=== PATIENT | female | born 1960 | race Caucasian/White ===

== ENCOUNTER 2020-04-03 09:39 | Outpatient (REF) | payer MEDICARE, OTHER, SELFPAY | END 2020-04-03 09:40 | disposition home or self-care (01) | LOC: HO.HMGCLDS 09:39 | PROVIDERS: PCP Internal Medicine; Visit Provider Internal Medicine Hypertension Specialist | DX: Z13.89 Encounter for screening for other disorder (principal) ==

== ENCOUNTER 2020-04-04 07:35 | Outpatient (REF) | payer MEDICARE, OTHER, SELFPAY ==
[2020-04-04 08:28] LABS: Basophils Percent Auto 0.6 % (0-2); Eosinophils Absolute Auto 0.4 X10*3/uL (0.0-0.4); Eosinophils Percent Auto 6.7 % (0-4); Hematocrit 40.7 % (37-47); Hemoglobin 13.1 g/dl (12.0-16.0); Imm Gran Abs Auto 0.01 X10*3/uL (0.00-0.03); Imm Gran Pct Auto 0.2 % (0.0-0.4); Lymphocytes Absolute Auto 1.8 X10*3/uL (1.2-4.9); Lymphocytes Percent Auto 33.7 % (20-40); MANUAL DIFF FLAG NO; Mean Corpuscular HGB Conc 32.2 g/dl (31.0-35.0); Mean Corpuscular Hemoglobin 30.8 pg (27.0-33.0); Mean Corpuscular Volume 95.5 fL (80-98); Mean Platelet Volume 9.2 fL (9.4-12.3); Monocytes Absolute Auto 0.4 X10*3/uL (0.1-1.2); Monocytes Percent Auto 7.6 % (2-11); Neutrophils Absolute Auto 2.7 X10*3/uL (2.0-8.3); Neutrophils Percent Auto 51.2 % (45-73); Platelet Count 324 X10*3/uL (160-400); Red Blood Count 4.26 X10*6/uL (4.20-5.50); Red Cell Distribution Width 13.4 % (11.0-16.0); White Blood Count 5.2 X10*3/uL (4.8-10.8)
[2020-04-04 08:59] LABS: Phosphorus 3.6 mg/dL (2.7-4.5)
[2020-04-04 09:00] LABS: Albumin Level 4.3 g/dL (3.5-5.0); Anion Gap 12 (12-20); Blood Urea Nitrogen 14 mg/dL (9-16); Calcium 8.8 mg/dL (8.4-10.2); Carbon Dioxide 27 mmol/L (22-29); Chloride 105 mmol/L (96-108); Estimated Glomerular Filt Rate > 60; Potassium 4.2 mmol/l (3.3-5.1); Sodium 140 mmol/L (135-145)
[2020-04-08 11:27] LABS: Metanephrine, Free 76 pg/mL (<=57); Normetanephrines, Free 150 pg/mL (<=148); Total Metanephrine, Free 226 pg/mL (<=205)
[2020-04-10 12:47] LABS: Renin 0.14 ng/mL/h (0.25-5.82)
[2020-04-12 14:17] LABS: Catecholamine Frac, Total 698 pg/mL
== END 2020-04-04 07:36 | disposition home or self-care (01) ==
LOC: HO.LAB 07:35
PROVIDERS: PCP Internal Medicine; Visit Provider Internal Medicine Hypertension Specialist
DX: I10 Essential (primary) hypertension (principal)
CPT/HCPCS: 36415; 80051; 82040; 82088; 82310; 82384; 82533; 82565; 83735; 83835; 84100; 84244; 84520; 85025

== ENCOUNTER 2020-07-26 14:20 | Outpatient (REF) | payer MEDICARE, OTHER, SELFPAY ==
[2020-07-26 17:01] LABS: Free T4 (Free Thyroxine) 0.94 ng/dL (0.71-1.85); Thyroid Stimulating Hormone 0.55 uIU/mL (0.32-4.0)
[2020-07-27 06:12] LABS: Triiodothyronine T3 Free 2.8 pg/mL (2.3-4.2)
== END 2020-07-26 14:21 | disposition home or self-care (01) ==
LOC: HO.HMGCLDS 14:20
PROVIDERS: PCP Internal Medicine; Visit Provider Internal Medicine
DX: E01.0 Iodine-deficiency related diffuse (endemic) goiter (principal)
CPT/HCPCS: 36415; 84439; 84443; 84481

== ENCOUNTER 2020-09-05 08:28 | Outpatient (REF) | payer MEDICARE, OTHER, SELFPAY ==
--- NOTE | ~2020-09-05 | US_ITS ---
EXAMINATION: US THYROID CLINICAL INFORMATION: Thyromegaly. COMPARISON: Ultrasound soft tissue head/neck thyroid dated 04/06/2018 and 01/27/2007. TECHNIQUE: Linear transducer grayscale and color Doppler examination with attention to the region of the thyroid. FINDINGS: SIZE: Measurements of the thyroid lobes and nodules are given in sagittal, anteroposterior and transverse dimensions respectively. Right Thyroid Lobe: 6.4 x 1.9 x 3.3 cm, volume 20.3 mL. Previously 5.5 x 2.4 x 3.1 cm, volume 21.3 mL. Parenchyma: The gland echotexture is heterogeneous. Thyroid vascularity is normal. Left Thyroid Lobe: 6.3 x 2.7 x 2.6 cm, volume 23.1 mL. Previously 5.8 x 2.5 x 2.4 cm, volume 18.4 mL. Parenchyma: The gland echotexture is heterogeneous. Thyroid vascularity is normal. Isthmus: 0.4 cm in maximum AP dimension. Previously 0.3 cm. Estimated total number of nodules greater than or equal to 1 cm: 3. Watch [employer] nodules are described as follows: 1. Location: Right superior medial. Size: 3.7 x 1.8 x 2.7 cm, volume 9.06 mL. Previously: 3.3 x 1.5 x 2.6 cm, volume 6.7 mL. Nodule characteristics: Composition: Solid/almost completely solid (2). Echogenicity: Isoechoic (1). Shape: Not taller than wide (0). Margins: Smooth (0). Echogenic Foci: Macrocalcifications (1). Punctate echogenic foci (3). ACR TI-RADS total points: 7 ACR TI-RADS category: 5 Significant change in size (>/= 20% in 2 dimensions and minimal increase of 2 mm or 50% or greater increase in volume): Yes Change in features: No Change in ACR TI-RADS risk category: No 2. Location: Right inferior. Size: 0.9 x 0.8 x 0.9 cm, volume 0.33 mL. Previously: Not seen on the prior study. This may correspond to calcified portion of the previously described 2 x 1.5 x 1.6 cm inferior nodule for example image 20-22 on April 2018 exam. Nodule characteristics: Composition: Cannot be determined (2). Echogenicity: Cannot be determined (1). Shape: Not taller than wide (0). Margins: Smooth (0). Echogenic Foci: Peripheral calcifications (2). ACR TI-RADS total points: 5 ACR TI-RADS category: 4 3. Location: Right inferior. Size: 1.0 x 0.9 x 1.0 cm, volume 0.46 mL. Previously: Not seen on the prior study. Nodule characteristics: Composition: Mixed cystic and solid (1). Echogenicity: Hypoechoic (2). Shape: Not taller than wide (0). Margins: Smooth (0). Echogenic Foci: Macrocalcifications (1). ACR TI-RADS total points: 4 ACR TI-RADS category: 4 4. Location: Left mid. Size: 2.8 x 2.1 x 2.3 cm, volume 6.81 mL. Previously: 3.0 x 2.2 x 2.0 cm, volume 6.9 mL. Nodule characteristics: Composition: Solid/almost completely solid (2). Echogenicity: Isoechoic (1). Shape: Not taller than wide (0). Margins: Smooth (0). Echogenic Foci: Punctate echogenic foci (3). ACR TI-RADS total points: 6 ACR TI-RADS category: 4 Significant change in size (>/= 20% in 2 dimensions and minimal increase of 2 mm or 50% or greater increase in volume): No Change in features: No Change in ACR TI-RADS risk category: No 5. Location: Left inferior. Size: 2.2 x 1.6 x 2.3 cm, volume 4.28 mL. Previously: Not seen on the prior study. Nodule characteristics: Composition: Solid/almost completely solid (2). Echogenicity: Hypoechoic (2). Shape: Not taller than wide (0). Margins: Smooth (0). Echogenic Foci: Punctate echogenic foci (3). ACR TI-RADS total points: 7 ACR TI-RADS category: 5 NODES: No lymphadenopathy is seen in the tissue surrounding the thyroid gland. US/US thyroid IMPRESSION: Enlarged heterogeneous thyroid gland with multiple bilateral nodules. Comparison with previous exam is difficult. Fine-needle aspiration of the largest nodule in the superior right lobe and inferior left lobe should be considered as well as continued ultrasound follow-up as described below. ACR TI-RADS RECOMMENDATION REFERENCE: Ultrasound-guided fine-needle aspiration, followup ultrasound, no further follow up. * TR1 (0 point) and TR 2 (2 points): No FNA or follow up * TR3 (3 points): FNA if more than or equal to 2.5 cm in maximum dimension, followup ultrasound in 1, 3 and 5 years if 1.5 to 2.4 cm in maximum dimension. * TR4 (4-6 points): FNA if more than or equal to 1.5 cm in maximum dimension, followup ultrasound in 1, 2, 3 and 5 years if 1 to 1.4 cm in maximum dimension. * TR5 (more than or equal to 7 points): FNA if more than or equal to 1 cm in maximum dimension, followup ultrasound every year for 5 years if 0.5 to 0.9 cm in maximum dimension. * TR3, TR4 or TR5 nodules that are below the size threshold for follow up receive no follow up.
== END 2020-09-05 08:29 | disposition home or self-care (01) ==
LOC: HO.HMGCX 08:28
PROVIDERS: PCP Internal Medicine; Visit Provider Internal Medicine
DX: E01.0 Iodine-deficiency related diffuse (endemic) goiter (principal)
CPT/HCPCS: 76536

== ENCOUNTER 2020-09-08 01:40 | Emergency (ER) | payer MEDICARE, OTHER, SELFPAY ==
[2020-09-08 02:01] VITALS: BP 169/54; PULSE 82; RESP 17; TEMP 37; O2SAT 98; BMI 24.7
--- NOTE | 2020-09-08 02:29 | ECG_ITS ---
Test Reason : VOMITING Blood Pressure : / mmHG Vent. Rate : 068 BPM Atrial Rate : 068 BPM P-R Int : 190 ms QRS Dur : 082 ms QT Int : 412 ms P-R-T Axes : 047 050 056 degrees QTc Int : 438 ms Sinus rhythm with frequent Premature ventricular complexes Otherwise normal ECG When compared with ECG of 15-JUN-2018 16:26, No significant change was found Referred By: Nan Aldrich Electronically Signed By:PARAMJIT WHEELER
[2020-09-08] MEDS: ondansetron HCL 4 MG/2 ML VIAL IVPUSH ×2 (02:30→04:59)
[2020-09-08 02:50] LABS: Basophils Percent Auto 0.1 % (0-2); Eosinophils Absolute Auto 0.1 X10*3/uL (0.0-0.4); Eosinophils Percent Auto 1.1 % (0-4); Hematocrit 42.2 % (37-47); Hemoglobin 14.1 g/dl (12.0-16.0); Imm Gran Abs Auto 0.02 X10*3/uL (0.00-0.03); Imm Gran Pct Auto 0.2 % (0.0-0.4); Lymphocytes Absolute Auto 1.2 X10*3/uL (1.2-4.9); Lymphocytes Percent Auto 14.6 % (20-40); MANUAL DIFF FLAG NO; Mean Corpuscular HGB Conc 33.4 g/dl (31.0-35.0); Mean Corpuscular Hemoglobin 31.4 pg (27.0-33.0); Mean Platelet Volume 9.6 fL (9.4-12.3); Monocytes Absolute Auto 0.6 X10*3/uL (0.1-1.2); Monocytes Percent Auto 6.7 % (2-11); Neutrophils Absolute Auto 6.5 X10*3/uL (2.0-8.3); Neutrophils Percent Auto 77.3 % (45-73); Platelet Count 346 X10*3/uL (160-400); Red Blood Count 4.49 X10*6/uL (4.20-5.50); Red Cell Distribution Width 13.1 % (11.0-16.0); White Blood Count 8.4 X10*3/uL (4.8-10.8)
[2020-09-08 03:13] LABS: Lipase 14 U/L (8-78)
[2020-09-08 03:18] LABS: Alanine Aminotransferase 15 U/L (0-31); Albumin Level 4.5 g/dL (3.5-5.0); Alkaline Phosphatase 72 U/L (39-117); Anion Gap 14 (12-20); Aspartate Amino Transferase 24 U/L (5-31); Blood Urea Nitrogen 13 mg/dL (9-16); Calcium 9.8 mg/dL (8.4-10.2); Carbon Dioxide 30 mmol/L (22-29); Chloride 101 mmol/L (96-108); Creatinine Clr Calc Pharmacy 73.5; Estimated Glomerular Filt Rate > 60; Glucose Random 96 mg/dL (60-115); Potassium 3.7 mmol/L (3.3-5.1); Sodium 141 mmol/L (135-145); Total Protein 7.5 g/dL (6.5-8.0)
--- NOTE | 2020-09-08 03:22 | ED.NAVMDI ---
HPI - Nausea/Vomiting/Diarrhea General Chief complaint: Nausea/Vomiting/Diarrhea Stated complaint: Vomiting Time Seen by Provider: 09/08/20 02:28 Source: patient Mode of arrival: ambulatory History of Present Illness HPI Narrative: 60-year-old female who presents after having had a tooth pulled earlier in the day and then was provided Percocet for pain at home and after taking his medication began developing nausea and vomiting. She states that the nausea and vomiting then caused her site tooth extraction to begin bleeding. She is concerned because she has a history cardiac problems and is currently on Eliquis. Related Data Previous Rx's Medication Instructions Recorded ondansetron HCl [Zofran] 4 mg PO Q8H PRN #7 tab 09/08/20 Allergies Allergy/AdvReac Type Severity Reaction Status Date / Time penicillin G [Penicillin G] Allergy Mild RASH Verified 09/08/20 02:43 acetaminophen Allergy Unknown Abdominal Verified 09/08/20 02:43 [Tylenol-Codeine #3] Pain penicillin V Allergy Unknown Abdominal Verified 09/08/20 02:45 Pain codeine [Codeine] AdvReac Mild SEVERE Verified 09/08/20 02:43 ABDOMINAL PAIN Review of Systems Review of Systems: Pertinent positives and negatives as stated in HPI 10 point review of systems is otherwise negative. PMFSH Past Medical History Source: nursing notes reviewed Medical History Atrial fibrillation Cardiac microvascular disease Cardiomyopathy TIA (transient ischemic attack) Social History Social History Alcohol intake: never Smoking Status: Never smoker Use of substances other than those prescribed or required for medical reasons: No Advance Directives: No Advance Directives Information Provided: No Physical Exam Vital Signs: Vital Signs: Last Vital Signs Temp 98.6 F 09/08/20 04:00 Pulse 15 L 09/08/20 04:00 Resp 17 09/08/20 04:00 BP 160/52 H 09/08/20 04:00 Pulse Ox 100 09/08/20 04:00 Body Mass Index 24.7 VITAL SIGNS: Reviewed. GENERAL: Well developed, well nourished, in no acute distress. HEAD: Normocephalic/atraumatic EYES: PERRLA, EOMI OROPHARYNX: no oral lesions noted, posterior pharynx clear, trace bleeding noted at extraction site otherwise oral cavity is clear NECK: Supple, no adenopathy LUNGS: Normal breath sounds. No adventitious sounds or accessory muscle use. SpO2<98> CARDIOVASCULAR: Regular rate and rhythm without noted murmurs ABDOMEN: Soft, non-tender, non-distended with bowel sounds. NEUROLOGIC: Alert and oriented x 4. Strength and sensation to light touch were grossly intact x 4. Course Course Course Narrative: 60-year-old female with history and clinical presentation consistent with pain medication associated nausea. Patient was provided with an antiemetic and on re-evaluation will undergo an oral challenge. Review of all investigations is negative for any additional acute findings. Review of all investigations for acute findings and on re-evaluation and after patient received antiemetics, alcohol to use, and pain medication she states that her nausea has improved and that her pain level is beginning to decrease. Patient is otherwise stable for discharge home and will be provided with a prescription for Zofran as needed to use just prior to taking pain medication. MDM - Nausea/Vomiting/Diarrhea Lab Data Result diagrams: 09/08/20 02:41 09/08/20 02:41 Labs: Lab Results 09/08/20 09/08/20 09/08/20 Range/Units 02:41 02:41 02:41 WBC 8.4 (4.8-10.8) X10*3/uL RBC 4.49 (4.20-5.50) X10*6/uL Hgb 14.1 (12.0-16.0) g/dl Hct 42.2 (37-47) % MCV 94.0 (80-98) fL MCH 31.4 (27.0-33.0) pg MCHC 33.4 (31.0-35.0) g/dl RDW 13.1 (11.0-16.0) % Plt Count 346 (160-400) X10*3/uL MPV 9.6 (9.4-12.3) fL Immature Gran % (Auto) 0.2 (0.0-0.4) % Neut % (Auto) 77.3 H (45-73) % Lymph % (Auto) 14.6 L (20-40) % [place] % (Auto) 6.7 (2-11) % Eos % (Auto) 1.1 (0-4) % Baso % (Auto) 0.1 (0-2) % Lymph # (Auto) 1.2 (1.2-4.9) X10*3/uL [place] # (Auto) 0.6 (0.1-1.2) X10*3/uL Eos # (Auto) 0.1 (0.0-0.4) X10*3/uL Baso # (Auto) 0.0 (0.0-0.2) X10*3/uL Abs Immat Gran (auto) 0.02 (0.00-0.03) X10*3/uL Absolute Neuts (auto) 6.5 (2.0-8.3) X10*3/uL Absolute Nucleated RBC 0.000 (0.0-0.012) X10*3/uL Nucleated RBC % (auto) 0.0 (0.0-0.2) /100WBC Sodium 141 (135-145) mmol/L Potassium 3.7 (3.3-5.1) mmol/L Chloride 101 (96-108) mmol/L Carbon Dioxide 30 H (22-29) mmol/L Anion Gap 14 (12-20) BUN 13 (9-16) mg/dL Creatinine 0.73 (0.5-1.4) mg/dL Estim Creat Clear Calc 73.5 Estimated GFR > 60 Random Glucose 96 (60-115) mg/dL Calcium 9.8 D (8.4-10.2) mg/dL Total Bilirubin 1.0 (0.0-1.0) mg/dL AST 24 (5-31) U/L ALT 15 (0-31) U/L Alkaline Phosphatase 72 (39-117) U/L Total Protein 7.5 (6.5-8.0) g/dL Albumin 4.5 (3.5-5.0) g/dL Lipase 14 (8-78) U/L Urine Color Urine Appearance Urine pH (5.0-8.0) Ur Specific [place] (1.005-1.025) Urine Protein (NEG-TRACE) MG/DL Urine Glucose (UA) (NEG) MG/DL Urine Ketones (NEG) MG/DL Urine Blood (NEG) Urine Nitrite (NEG) Ur Leukocyte Esterase (NEG) 09/08/20 Range/Units 04:12 WBC (4.8-10.8) X10*3/uL RBC (4.20-5.50) X10*6/uL Hgb (12.0-16.0) g/dl Hct (37-47) % MCV (80-98) fL MCH (27.0-33.0) pg MCHC (31.0-35.0) g/dl RDW (11.0-16.0) % Plt Count (160-400) X10*3/uL MPV (9.4-12.3) fL Immature Gran % (Auto) (0.0-0.4) % Neut % (Auto) (45-73) % Lymph % (Auto) (20-40) % [place] % (Auto) (2-11) % Eos % (Auto) (0-4) % Baso % (Auto) (0-2) % Lymph # (Auto) (1.2-4.9) X10*3/uL [place] # (Auto) (0.1-1.2) X10*3/uL Eos # (Auto) (0.0-0.4) X10*3/uL Baso # (Auto) (0.0-0.2) X10*3/uL Abs Immat Gran (auto) (0.00-0.03) X10*3/uL Absolute Neuts (auto) (2.0-8.3) X10*3/uL Absolute Nucleated RBC (0.0-0.012) X10*3/uL Nucleated RBC % (auto) (0.0-0.2) /100WBC Sodium (135-145) mmol/L Potassium (3.3-5.1) mmol/L Chloride (96-108) mmol/L Carbon Dioxide (22-29) mmol/L Anion Gap (12-20) BUN (9-16) mg/dL Creatinine (0.5-1.4) mg/dL Estim Creat Clear Calc Estimated GFR Random Glucose (60-115) mg/dL Calcium (8.4-10.2) mg/dL Total Bilirubin (0.0-1.0) mg/dL AST (5-31) U/L ALT (0-31) U/L Alkaline Phosphatase (39-117) U/L Total Protein (6.5-8.0) g/dL Albumin (3.5-5.0) g/dL Lipase (8-78) U/L Urine Color YELLOW Urine Appearance CLEAR Urine pH 8.5 H (5.0-8.0) Ur Specific [place] 1.010 (1.005-1.025) Urine Protein NEG (NEG-TRACE) MG/DL Urine Glucose (UA) NEG (NEG) MG/DL Urine Ketones 5 (NEG) MG/DL Urine Blood NEG (NEG) Urine Nitrite NEG (NEG) Ur Leukocyte Esterase NEG (NEG) ECG Data Attestation: I personally reviewed and interpreted this ECG as follows: Prior ECG tracings: available for review (06/15/2018 no acute changes on comparison) Interpretation: Normal sinus rhythm with PVCs, HR-68, no evidence of acute ischemia, AK/QRS/QTC is within normal limits. Discharge Plan Discharge Clinical Impression: Nausea & vomiting Patient Disposition: Home, Self-Care Instructions: Acute Nausea and Vomiting (ED) Additional Instructions: 1. Resume all home medications as prescribed. 2. Please follow-up with your primary care provider in the next 2-3 days for re-evaluation and follow-up your dentist today. 3. Do not hesitate to return in the emergency department for any acute worsening of your symptoms. Prescriptions: New ondansetron HCl [Zofran] 4 mg tablet 4 mg PO Q8H PRN (Reason: nausea and vomiting) Qty: 7 RF: 0 Referrals: Physician,Unknown [Primary Care Provider] - 2 days
[2020-09-08 04:00] VITALS: BP 160/52; PULSE 15; RESP 17; TEMP 37; O2SAT 100
[2020-09-08 04:19] LABS: Glucose Urine UA NEG (NEG); Leukocyte Esterase Urine NEG (NEG); Nitrite Urine NEG (NEG); PH 8.5 (5.0-8.0); Urine Blood NEG (NEG); Urine Ketones 5 MG/DL (NEG); Urine Protein NEG (NEG-TRACE)
[2020-09-08 04:21] LABS: Appearance Urine CLEAR; Color Urine YELLOW
[2020-09-08] MEDS: traMADoL HCL 50 MG TABLET 25 MG PO (04:59)
== END 2020-09-08 06:18 | disposition home or self-care (01) ==
PROVIDERS: Emergency Provider Student in an Organized Health Care Education/Training Program
DX: R11.2 Nausea with vomiting, unspecified (principal); I48.91 Unspecified atrial fibrillation; Z86.73 Personal history of transient ischemic attack (TIA), and cerebral infarction without residual deficits; Z79.01 Long term (current) use of anticoagulants
CPT/HCPCS: 36415; 80053; 81003; 83690; 85025; 93005; 96374; 96376; 99284; 99285; J2405

== ENCOUNTER 2020-10-09 11:26 | Outpatient (REF) | payer MEDICARE, SELFPAY ==
[2020-10-09 12:08] LABS: Basophils Percent Auto 0.2 % (0-2); Eosinophils Absolute Auto 0.3 X10*3/uL (0.0-0.4); Eosinophils Percent Auto 4.6 % (0-4); Hematocrit 33.5 % (37-47); Hemoglobin 11.2 g/dl (12.0-16.0); Imm Gran Abs Auto 0.01 X10*3/uL (0.00-0.03); Imm Gran Pct Auto 0.2 % (0.0-0.4); Lymphocytes Absolute Auto 1.7 X10*3/uL (1.2-4.9); Lymphocytes Percent Auto 30.8 % (20-40); Mean Corpuscular HGB Conc 33.4 g/dl (31.0-35.0); Mean Corpuscular Hemoglobin 31.4 pg (27.0-33.0); Mean Corpuscular Volume 93.8 fL (80-98); Mean Platelet Volume 9.3 fL (9.4-12.3); Monocytes Absolute Auto 0.6 X10*3/uL (0.1-1.2); Monocytes Percent Auto 10.4 % (2-11); Neutrophils Absolute Auto 2.9 X10*3/uL (2.0-8.3); Neutrophils Percent Auto 53.8 % (45-73); Platelet Count 288 X10*3/uL (160-400); Red Blood Count 3.57 X10*6/uL (4.20-5.50); Red Cell Distribution Width 12.9 % (11.0-16.0); White Blood Count 5.5 X10*3/uL (4.8-10.8)
[2020-10-09 12:09] LABS: MANUAL DIFF FLAG NO
[2020-10-09 12:50] LABS: Erythrocyte Sedimentation Rate 16 MM/HR (0-20)
[2020-10-09 13:20] LABS: C Reactive Protein 0.17 mg/dL (< or = 0.50)
== END 2020-10-09 11:27 | disposition home or self-care (01) ==
LOC: HO.HMGCLDS 11:26
PROVIDERS: PCP Internal Medicine; Visit Provider Physician Assistant Surgical
DX: M25.561 Pain in right knee (principal); M25.461 Effusion, right knee
CPT/HCPCS: 36415; 85025; 85652; 86140

== ENCOUNTER 2021-03-22 07:10 | Outpatient (REF) | payer MEDICARE, SELFPAY ==
[2021-04-02 06:47] LABS: Lamotrigine Lamictal 9.5 mcg/mL (4.0-18.0)
== END 2021-03-22 07:11 | disposition home or self-care (01) ==
LOC: HO.HMGCLDS 07:10
PROVIDERS: PCP Internal Medicine; Visit Provider Clinical Nurse Specialist Psychiatric/Mental Health, Adult
DX: Z51.81 Encounter for therapeutic drug level monitoring (principal); Z79.899 Other long term (current) drug therapy
CPT/HCPCS: 36415; 80175

== ENCOUNTER 2021-05-07 09:24 | Outpatient (REF) | payer MEDICARE, OTHER, SELFPAY ==
[2021-05-07 17:59] LABS: Erythrocyte Sedimentation Rate 11 MM/HR (0-20)
[2021-05-07 18:18] LABS: Vitamin B12 411 pg/mL (200-900)
[2021-05-08 05:30] LABS: Lyme Abs Screen <0.90 index
[2021-05-08 16:46] LABS: Homocysteine 8.6 umol/L (<10.4)
[2021-05-08 21:57] LABS: Anti Nuclear Antibody Pattern Nuclear, Homogeneous; Anti Nuclear Antibody Screen POSITIVE (NEGATIVE); Anti Nuclear Antibody Titer 1:40 titer
[2021-05-11 13:41] LABS: Methylmalonic Acid 106 nmol/L (87-318)
== END 2021-05-07 09:25 | disposition home or self-care (01) ==
LOC: HO.HMGCLDS 09:24
PROVIDERS: PCP Internal Medicine; Visit Provider Psychiatry & Neurology Neurology
DX: G37.9 Demyelinating disease of central nervous system, unspecified (principal)
CPT/HCPCS: 36415; 82607; 83090; 83921; 84443; 85652; 86038; 86039; 86617; 86618

== ENCOUNTER 2021-10-11 12:16 | Emergency (ER) | payer MEDICARE, OTHER, SELFPAY ==
--- NOTE | ~2021-10-11 | XR_ITS ---
EXAMINATION: XR CHEST CLINICAL INFORMATION: Dizziness. COMPARISON: 03/12/2018 chest radiographs. TECHNIQUE: 2 views of the chest were obtained. FINDINGS: No significant abnormality is noted involving the heart, lungs, mediastinum, bony thorax or soft tissues. Anterior cervical fusion plate intact without abnormality. XR/XR chest 2V IMPRESSION: No acute cardiopulmonary process.
--- NOTE | ~2021-10-11 | CT_ITS ---
EXAMINATION: CT HEAD WITHOUT CONTRAST CLINICAL INFORMATION: Dizziness. Recent MS diagnosis in June. COMPARISON: Brain MRI 04/26/2021. TECHNIQUE: Contiguous axial imaging was performed from the skull base to vertex without intravenous administration of contrast. This CT examination was performed using dose optimization techniques as appropriate, variously including the following: *Automated exposure control *Adjustment of mA and/or kV according to patient size (this includes techniques or standardized protocols for targeted exams where dose is matched to indication/reason for exam; i.e. extremities or head) *Use of iterative reconstruction technique DLP: 636 mGy-cm. FINDINGS: There is no intracranial hemorrhage, large infarction, or mass lesion. There is no extra-axial collection. The ventricles are normal in size and configuration without evidence of hydrocephalus. A few mild nonspecific foci of hypoattenuation is seen within the cerebral white matter. The visualized paranasal sinuses and mastoid air cells are clear. CT/CT head/brain wo con IMPRESSION: No acute intracranial abnormality.
[2021-10-11 12:30] VITALS: BP 126/73; PULSE 67; O2SAT 100
[2021-10-11 12:43] VITALS: BP 128/72; PULSE 72; RESP 18; TEMP 36.6; O2SAT 99; BMI 25.8
--- NOTE | 2021-10-11 13:14 | ECG_ITS ---
Test Reason : weakness Blood Pressure : / mmHG Vent. Rate : 066 BPM Atrial Rate : 066 BPM P-R Int : 202 ms QRS Dur : 080 ms QT Int : 402 ms P-R-T Axes : 047 032 044 degrees QTc Int : 421 ms Normal sinus rhythm Normal ECG When compared with ECG of 08-SEP-2020 03:27, Premature ventricular complexes are no longer Present Referred By: Ellie Kan Electronically Signed By:PARAMJIT WHEELER
--- NOTE | 2021-10-11 13:40 | ED_ITS ---
HPI - Dizziness General Chief Complaint: General Medical Stated Complaint: DIZZY X'S 2 DAYS, H/O MS Time Seen by Provider: 10/11/21 12:53 Source: patient and EMS Mode of arrival: EMS Limitations: no limitations History of Present Illness HPI Narrative: 61-year-old female c PMHX of atrial fibrillation currently on Eliquis, hypertension, hyperlipidemia, who reports she was recently diagnosed with multiple sclerosis in June being followed by a provider at [facility] although not happy with this provider as she reports that she told her she had multiple sclerosis then told her she did not have multiple sclerosis and was actual seizures also being followed by her primary care provider Dr. Suarez presenting to the ED with complaints of lightheadedness/dizziness with near- syncope since yesterday with bilateral lower extremity general weakness and associated nausea that has been constant since 16:00 yesterday. She reports that yesterday she went to get up from the couch and she felt like she was going to pass out and she fell back onto the couch but believe she did not pass out. She reports that yesterday she had some abdominal discomfort as well although she took some Maalox which provided her abdominal discomfort relief. She no longer has abdominal discomfort at this time. She reports that she came here today because Dr. Suarez she believes is working here today and would like him to see her. She denies any fevers, chills, changes in vision, ear pain/ringing, jaw pain, paresthesias, loss of taste or smell, nasal congestion/rhinorrhea, recent head injury or falls, focal weakness, chest pain, shortness of breath, dyspnea on exertion, orthopnea, palpitations, rashes, vomiting, diarrhea, black or bloody stools, constipation, recent travel or sick contacts, lower extremity edema or calf tenderness or any other symptoms complaints or concerns at this time. MD elicited complaint: dizziness, lightheadedness and near syncope Onset (ago): day(s) (2) Timing: gradual onset and constant Severity: mild Description: lightheadedness and near-syncope Context: other (Recently diagnosed with multiple sclerosis in June 2021) Exacerbating factors: movement/ambulation, change in body position, exertion and standing Relieving factors: nothing Associated symptoms: nausea Associated neuro symptoms: limb weakness (Bilateral lower extremity general weakness) Related Data Previous Rx's Medication Instructions Recorded ondansetron HCl 4 mg tablet 4 mg PO Q8H PRN nausea and 09/08/20 (Zofran) vomiting #7 tabs meclizine 25 mg tablet 25 mg PO DAILY PRN dizziness #10 10/11/21 tabs ondansetron 4 mg disintegrating 4 mg PO Q6H #14 tabs 10/11/21 tablet Allergies Allergy/AdvReac Type Severity Reaction Status Date / Time penicillin G [Penicillin G] Allergy Mild RASH Verified 09/08/20 02:43 acetaminophen Allergy Unknown Abdominal Verified 09/08/20 02:43 [Tylenol-Codeine #3] Pain penicillin V Allergy Unknown Abdominal Verified 09/08/20 02:45 Pain codeine [Codeine] AdvReac Mild SEVERE Verified 09/08/20 02:43 ABDOMINAL PAIN Review of Systems Review of Systems: Constitutional : No Fever, No Chills, No Night Sweats, No Fatigue, No Malaise ENT/Mouth : No Ear Pain, No Nasal Congestion, No Sinus Pain, No sore throat, No Rhinorrhea Eyes: No Eye Pain, No Swelling, No Redness, No Foreign Body, No Discharge, No Vision Changes Cardiovascular : No Chest Pain, No SOB, No Dyspnea on Exertion, No Orthopnea, No Palpitations Respiratory : No Cough, No Sputum, No Wheezing, No Dyspnea Gastrointestinal : No Nausea, No Vomiting, No Diarrhea, No Constipation, No abdominal Pain, No Hematochezia, No Melena Genitourinary : No Dysuria, No Urinary Frequency, No Urinary Incontinence, No Urgency, No Flank Pain Musculoskeletal : No joint pain, No Myalgias Skin : No lacerations Neuro : + bilateral lower extremity general weakness, + lightheadedness/dizziness/near syncope, No Focal weakness, No Numbness, No Paresthesias, No Loss of Consciousness, No Headache Yes all other systems are reviewed and are negative [facility] Past Medical History Attestation statement: The following information was validated with the patient. Source: old records reviewed and nursing notes reviewed Medical History Atrial fibrillation Cardiac microvascular disease Cardiomyopathy TIA (transient ischemic attack) Social History Social History Alcohol intake: never Advance Directives: No Physical Exam Vital Signs: Vital Signs: Last Vital Signs Temp 97.8 F 10/11/21 12:43 Pulse 72 10/11/21 12:43 Resp 18 10/11/21 12:43 BP 128/72 10/11/21 12:43 Pulse Ox 99 10/11/21 12:43 O2 Del Method 10/11/21 12:43 BMI result Body Mass Index 25.8 Vital signs have been reviewed as normal and appeared to be correct. Blood pressure normal. Heart rate normal. Respiration rate normal. Temperature normal. Oxygen saturation normal. Appearance: Alert. Oriented X3. No acute distress. Head: Normal external exam. Normocephalic. Atraumatic. Able to rotate head bila terally. Eyes: PERRLA. EOMI. No nystagmus noted. Conjunctiva and sclera normal. Eyelids normal. Corneal reflex normal. ENT: EAC normal. TM's Normal. Hearing normal. Pharynx normal. Uvula midline. t ongue midline. Moist mucous membranes. No trismus noted. No drooling noted. No muffled voice noted. No nystagmus noted. Neck: Normal inspection. Neck supple. FROM. No adenopathy. Trachea midline. Thyroid Normal. No meningeal signs. No neck mass noted. CVS: Normal heart rate and rhythm. Heart sound normal. No murmurs noted. Pulses normal throughout. Respiratory: No respiratory distress. Painless inspiration. Breath sounds normal. No wheezes/rales/rhonchi noted. Chest nontender. No accessory muscle usage noted or decreased air movement noted. Abdomen: Soft and nontender. Bowel sounds normal in all 4 quadrants. No distention noted. No organomegaly noted. No visible injury noted. Back: No CVA tenderness. Full range of motion noted. Skin: Skin warm and dry. Normal skin color. Normal skin turgor. No rashes/lesions/lacerations noted. Extremities: No lower extremity edema. Extremities exhibit normal range of motion. Extremities nontender. Able to shrug shoulders bilaterally and keep up against resistance. Neuro: Oriented X 3. No motor deficit. No sensory deficit. Reflexes normal. Moving all extremities. No focal motor deficits. Cranial nerves II-XI intact bilaterally. Facial strength normal. Normal cognition. Speech normal. Gait normal. Strength 5/5 throughout. No pronator drift. No tremor noted. No fasciculations noted. No rigidity noted. Muscle tone normal throughout. No asterixis noted. [id number] test normal. Heel to rodriguez test normal. Tandem gait normal. Does not sway with eyes open. Romberg test negative. Rapid alternating movement upper extremity normal. Rapid alternating movement lower extremity normal. Hand drop from overhead Misses face. NIHSS score 0. Course Course Course Narrative: 13:15pm - 61-year-old female c PMHX of atrial fibrillation currently on Eliquis, hypertension, hyperlipidemia, who reports she was recently diagnosed with multiple sclerosis vs seizures in June being followed by a provider at [facility] and her primary care provider Dr. Suarez presenting to the ED with complaints of lightheadedness/dizziness with near-syncope since yesterday with bilateral lower extremity general weakness and associated nausea that has been constant since 16:00 yesterday. She reports that yesterday she went to get up from the couch and she felt like she was going to pass out and she fell back onto the couch but believe she did not pass out. She reports that yesterday she had some abdominal discomfort as well although she took some Maalox which provided her abdominal discomfort relief. She no longer has abdominal discomfort at this time. She reports that she came here today because Dr. Suarez she believes is working here today and would like him to see her. On exam patient is alert oriented x3. Not in any acute distress. Normal steady gait. NIH SS score 0. Patient not a tPA candidate as her symptoms started yesterday and she has non disabling symptoms at this time as well. Plan: Labs, EKG, chest x-ray, CT scan of brain, orthostatic vitals, UA, drugs of abuse screen. Try to obtain records from [facility] and re-evaluate. Reevaluation(s) Reevaluation #1: - labs reviewed and all within normal limits. - chest x-ray within normal limits no acute processes noted. - EKG normal sinus rhythm with a ventricular rate of 66 with a normal UT interval normal QRS duration normal QT/QTC interval. No acute ischemic change are noted. Similar compared to prior EKG 09/08/2020. Time: 15:26 Reevaluation #2: - CT scan of brain within normal limits. - orthostatic vitals within normal limits. Patient has been up multiple times to the bathroom she has a normal steady gait. No focal deficits. After I gave the patient Zofran and meclizine she reports her symptoms completely resolved and she does not want to be admitted I did offer admission although patient reports she feels better does not want to stay here and she has follow-up with her PCP/neurologist therefore at this time will DC home with meclizine for possible vertigo and instructions return if any new or worsening symptoms. Patient understands agrees with this plan. Time: 18:05 [facility] - Dizziness Medical Records Attestation: I reviewed the patient's medical records. Lab Data Attestation: I reviewed the patient's lab results. Result diagrams: 10/11/21 13:53 10/11/21 13:53 Labs: Lab Results 10/11/21 10/11/21 10/11/21 Range/Units 13:53 13:53 13:53 WBC 5.8 (4.8-10.8) X10*3/uL RBC 4.26 (4.20-5.50) X10*6/uL Hgb 13.3 (12.0-16.0) g/dl Hct 40.8 (37.0-47.0) % MCV 95.8 (80.0-98.0) fL MCH 31.2 (27.0-33.0) pg MCHC 32.6 (31.0-35.0) g/dl RDW 13.0 (11.0-16.0) % Plt Count 339 (160-400) X10*3/uL MPV 9.3 L (9.4-12.3) fL Immature Gran % (Auto) 0.3 (0.0-0.4) % Neut % (Auto) 63.8 (45-73) % Lymph % (Auto) 28.5 (20-40) % [place] % (Auto) 6.9 (2-11) % Eos % (Auto) 0.3 (0-4) % Baso % (Auto) 0.2 (0-2) % Lymph # (Auto) 1.7 (1.2-4.9) X10*3/uL [place] # (Auto) 0.4 (0.1-1.2) X10*3/uL Eos # (Auto) 0.0 (0.0-0.4) X10*3/uL Baso # (Auto) 0.0 (0.0-0.2) X10*3/uL Abs Immat Gran (auto) 0.02 (0.00-0.03) X10*3/uL Absolute Neuts (auto) 3.7 (2.0-8.3) x10*3/uL Absolute Nucleated RBC 0.000 (0.0-0.012) X10*3/uL Nucleated RBC % (auto) 0.0 (0.0-0.2) /100WBC PT 13.3 H (9.9-13.0) SEC INR 1.2 H (0.9-1.1) Sodium 142 (135-145) mmol/L Potassium 3.6 (3.3-5.1) mmol/L Chloride 107 (96-108) mmol/L Carbon Dioxide 25 (22-29) mmol/L Anion Gap 14 (12-20) BUN 13 (9-16) mg/dL Creatinine 0.79 (0.5-1.4) mg/dL Estim Creat Clear Calc 76.2 Estimated GFR > 60 Random Glucose 82 (60-115) mg/dL Calcium 9.4 (8.4-10.2) mg/dL Magnesium 2.4 (1.6-2.6) mg/dL Total Bilirubin 1.0 (0.0-1.0) mg/dL AST 23 (5-31) U/L ALT 18 (0-31) U/L Alkaline Phosphatase 58 (39-117) U/L Troponin I High Sens (<3.5-17.0) ng/L Total Protein 7.3 (6.5-8.0) g/dL Albumin 4.4 (3.5-5.0) g/dL TSH 0.90 (0.32-4.0) uIU/mL Urine Color Urine Appearance Urine pH (5.0-8.0) Ur Specific [place] (1.005-1.025) Urine Protein (NEG-TRACE) MG/DL Urine Glucose (UA) (NEG) MG/DL Urine Ketones (NEG) MG/DL Urine Blood (NEG) Urine Nitrite (NEG) Ur Leukocyte Esterase (NEG) Ethyl Alcohol mg/dL 10/11/21 10/11/21 10/11/21 Range/Units 13:53 13:53 17:50 WBC (4.8-10.8) X10*3/uL RBC (4.20-5.50) X10*6/uL Hgb (12.0-16.0) g/dl Hct (37.0-47.0) % MCV (80.0-98.0) fL MCH (27.0-33.0) pg MCHC (31.0-35.0) g/dl RDW (11.0-16.0) % Plt Count (160-400) X10*3/uL MPV (9.4-12.3) fL Immature Gran % (Auto) (0.0-0.4) % Neut % (Auto) (45-73) % Lymph % (Auto) (20-40) % [place] % (Auto) (2-11) % Eos % (Auto) (0-4) % Baso % (Auto) (0-2) % Lymph # (Auto) (1.2-4.9) X10*3/uL [place] # (Auto) (0.1-1.2) X10*3/uL Eos # (Auto) (0.0-0.4) X10*3/uL Baso # (Auto) (0.0-0.2) X10*3/uL Abs Immat Gran (auto) (0.00-0.03) X10*3/uL Absolute Neuts (auto) (2.0-8.3) x10*3/uL Absolute Nucleated RBC (0.0-0.012) X10*3/uL Nucleated RBC % (auto) (0.0-0.2) /100WBC PT (9.9-13.0) SEC INR (0.9-1.1) Sodium (135-145) mmol/L Potassium (3.3-5.1) mmol/L Chloride (96-108) mmol/L Carbon Dioxide (22-29) mmol/L Anion Gap (12-20) BUN (9-16) mg/dL Creatinine (0.5-1.4) mg/dL Estim Creat Clear Calc Estimated GFR Random Glucose (60-115) mg/dL Calcium (8.4-10.2) mg/dL Magnesium (1.6-2.6) mg/dL Total Bilirubin (0.0-1.0) mg/dL AST (5-31) U/L ALT (0-31) U/L Alkaline Phosphatase (39-117) U/L Troponin I High Sens < 3.5 (<3.5-17.0) ng/L Total Protein (6.5-8.0) g/dL Albumin (3.5-5.0) g/dL TSH (0.32-4.0) uIU/mL Urine Color YELLOW Urine Appearance CLEAR Urine pH 7.5 (5.0-8.0) Ur Specific [place] 1.015 (1.005-1.025) Urine Protein NEG (NEG-TRACE) MG/DL Urine Glucose (UA) NEG (NEG) MG/DL Urine Ketones 15 (NEG) MG/DL Urine Blood NEG (NEG) Urine Nitrite NEG (NEG) Ur Leukocyte Esterase NEG (NEG) Ethyl Alcohol < 10 mg/dL Imaging Data Chest x-ray: Attestation: I personally reviewed and interpreted this imaging study as follows: Radiologist's impression: FINDINGS: No significant abnormality is noted involving the heart, lungs, mediastinum, bony thorax or soft tissues. Anterior cervical fusion plate intact without abnormality. XR/XR chest 2V IMPRESSION: No acute cardiopulmonary process. CT scan of brain without contrast: Attestation: I personally reviewed and interpreted this imaging study as follows: Radiologist's impression: FINDINGS: There is no intracranial hemorrhage, large infarction, or mass lesion. There is no extra-axial collection. The ventricles are normal in size and configuration without evidence of hydrocephalus. A few mild nonspecific foci of hypoattenuation is seen within the cerebral white matter. The visualized paranasal sinuses and mastoid air cells are clear. CT/CT head/brain wo con IMPRESSION: No acute intracranial abnormality. ECG Data Attestation: I personally reviewed and interpreted this ECG as follows: ECG interpretation date: 10/11/21 ECG interpretation time: 13:35 Interpretation: Normal sinus rhythm with a ventricular rate of 66 with a normal UT interval normal QRS duration normal QT/QTC interval. No acute ischemic change are noted. Similar compared to prior EKG 09/08/2020. Critical Care Time Critical Care Time Critical Care Time: Yes Total Critical Care Time: 60 Attestation: I personally attest to this time spent taking care of the patient Discharge Plan Discharge Clinical Impression: Vertigo Patient Disposition: Home, Self-Care Prescriptions: New ondansetron 4 mg tablet,disintegrating 4 mg PO Q6H Qty: 14 0RF meclizine 25 mg tablet 25 mg PO DAILY PRN (Reason: dizziness) Qty: 10 0RF No Action ondansetron HCl [Zofran] 4 mg tablet 4 mg PO Q8H PRN (Reason: nausea and vomiting) Qty: 7 0RF Referrals: Gustavo Suarez DO [Primary Care Provider] - 1 day
[2021-10-11] MEDS: 0.9 % Sodium Chloride 1,000 ML 999 ML IVCONT (13:52)
[2021-10-11 14:03] LABS: MANUAL DIFF FLAG NO
[2021-10-11 14:10] LABS: INTERNATIONAL NORM RATIO 1.2 (0.9-1.1); Prothrombin Time 13.3 SEC (9.9-13.0)
[2021-10-11 14:12] LABS: Basophils Percent Auto 0.2 % (0-2); Eosinophils Percent Auto 0.3 % (0-4); Hematocrit 40.8 % (37.0-47.0); Hemoglobin 13.3 g/dl (12.0-16.0); Imm Gran Abs Auto 0.02 X10*3/uL (0.00-0.03); Imm Gran Pct Auto 0.3 % (0.0-0.4); Lymphocytes Absolute Auto 1.7 X10*3/uL (1.2-4.9); Lymphocytes Percent Auto 28.5 % (20-40); Mean Corpuscular HGB Conc 32.6 g/dl (31.0-35.0); Mean Corpuscular Hemoglobin 31.2 pg (27.0-33.0); Mean Corpuscular Volume 95.8 fL (80.0-98.0); Mean Platelet Volume 9.3 fL (9.4-12.3); Monocytes Absolute Auto 0.4 X10*3/uL (0.1-1.2); Monocytes Percent Auto 6.9 % (2-11); Neutrophils Absolute Auto 3.7 x10*3/uL (2.0-8.3); Neutrophils Percent Auto 63.8 % (45-73); Platelet Count 339 X10*3/uL (160-400); Red Blood Count 4.26 X10*6/uL (4.20-5.50); White Blood Count 5.8 X10*3/uL (4.8-10.8)
[2021-10-11 14:18] LABS: Ethanol < 10 mg/dL
[2021-10-11 14:22] LABS: Alanine Aminotransferase 18 U/L (0-31); Albumin Level 4.4 g/dL (3.5-5.0); Alkaline Phosphatase 58 U/L (39-117); Anion Gap 14 (12-20); Aspartate Amino Transferase 23 U/L (5-31); Blood Urea Nitrogen 13 mg/dL (9-16); Calcium 9.4 mg/dL (8.4-10.2); Carbon Dioxide 25 mmol/L (22-29); Chloride 107 mmol/L (96-108); Creatinine Clr Calc Pharmacy 76.2; Estimated Glomerular Filt Rate > 60; Glucose Random 82 mg/dL (60-115); Magnesium 2.4 mg/dL (1.6-2.6); Potassium 3.6 mmol/L (3.3-5.1); Sodium 142 mmol/L (135-145); Total Protein 7.3 g/dL (6.5-8.0)
[2021-10-11 14:26] LABS: Troponin-I High Sensitivity < 3.5 ng/L (<3.5-17.0)
[2021-10-11] MEDS: Ondansetron ODT 4 MG TAB.RAPDIS TRANSLINGU (16:40)
[2021-10-11] MEDS: Meclizine HCl 25 MG TABLET 50 MG PO (16:45)
[2021-10-11 18:01] LABS: Appearance Urine CLEAR; Color Urine YELLOW; Glucose Urine UA NEG (NEG); Leukocyte Esterase Urine NEG (NEG); Nitrite Urine NEG (NEG); PH 7.5 (5.0-8.0); Specific Gravity - Urine 1.015 (1.005-1.025); Urine Blood NEG (NEG); Urine Ketones 15 MG/DL (NEG); Urine Protein NEG (NEG-TRACE)
[2021-10-11 18:14] LABS: Amphetamine Screen Urine Not Detected (Not Detect); Barbiturates, Urine Not Detected (Not Detect); Benzodiazepines Screen Urine Not Detected (Not Detect); Cannabinoid Screen Urine Not Detected (Not Detect); Cocaine Screen Urine Not Detected (Not Detect); Fentanyl, urine Not Detected (Not Detect); Opiate Screen Urine Not Detected (Not Detect); Phencyclidine Screen Urine Not Detected (Not Detect)
[2021-10-11 18:22] VITALS: BP 133/66; PULSE 63; PULSE 74; RESP 18; TEMP 36.6; O2SAT 98
[2021-10-11 18:23] VITALS: BP 125/79; BP 131/84; PULSE 71; PULSE 76
== END 2021-10-11 18:32 | disposition home or self-care (01) ==
PROVIDERS: Physician Assistant Medical; Emergency Provider Emergency Medicine; PCP Internal Medicine
DX: R42 Dizziness and giddiness (principal); I10 Essential (primary) hypertension; E78.5 Hyperlipidemia, unspecified; I48.91 Unspecified atrial fibrillation; Z86.73 Personal history of transient ischemic attack (TIA), and cerebral infarction without residual deficits; Z79.899 Other long term (current) drug therapy
CPT/HCPCS: 36415; 70450; 71046; 80053; 80307; 81003; 82077; 83735; 84443; 84484; 85025; 85610; 93005; 96360; 99284

== ENCOUNTER 2022-04-10 08:10 | Outpatient (REF) | payer MEDICARE, OTHER, SELFPAY ==
[2022-04-10 11:17] LABS: MANUAL DIFF FLAG NO
[2022-04-10 11:33] LABS: Basophils Percent Auto 0.6 % (0-2); Eosinophils Absolute Auto 0.2 X10*3/uL (0.0-0.4); Eosinophils Percent Auto 3.5 % (0-4); Hemoglobin 11.9 g/dl (12.0-16.0); Imm Gran Abs Auto 0.01 X10*3/uL (0.00-0.03); Imm Gran Pct Auto 0.2 % (0.0-0.4); Lymphocytes Absolute Auto 1.9 X10*3/uL (1.2-4.9); Lymphocytes Percent Auto 39.2 % (20-40); Mean Corpuscular HGB Conc 32.2 g/dl (31.0-35.0); Mean Corpuscular Hemoglobin 30.1 pg (27.0-33.0); Mean Corpuscular Volume 93.4 fL (80.0-98.0); Mean Platelet Volume 9.7 fL (9.4-12.3); Monocytes Absolute Auto 0.5 X10*3/uL (0.1-1.2); Monocytes Percent Auto 9.2 % (2-11); Neutrophils Absolute Auto 2.3 x10*3/uL (2.0-8.3); Neutrophils Percent Auto 47.3 % (45-73); Platelet Count 302 X10*3/uL (160-400); Red Blood Count 3.96 X10*6/uL (4.20-5.50); Red Cell Distribution Width 13.3 % (11.0-16.0); White Blood Count 4.9 X10*3/uL (4.8-10.8)
[2022-04-10 12:55] LABS: Alanine Aminotransferase 15 U/L (0-31); Albumin Level 4.2 g/dL (3.5-5.0); Alkaline Phosphatase 75 U/L (39-117); Anion Gap 9 (12-20); Aspartate Amino Transferase 24 U/L (5-31); Bilirubin Total 0.9 mg/dL (0.0-1.0); Blood Urea Nitrogen 15 mg/dL (9-16); Calcium 9.1 mg/dL (8.4-10.2); Carbon Dioxide 31 mmol/L (22-29); Chloride 107 mmol/L (96-108); Cholesterol 164 mg/dL; Estimated Glomerular Filt Rate > 60; Glucose Fasting 75 mg/dL (60-99); HDL Cholesterol 66 mg/dL; LDL Cholesterol Calculated 76 mg/dl; Potassium 3.8 mmol/L (3.3-5.1); Sodium 143 mmol/L (135-145); Thyroid Stimulating Hormone 0.77 uIU/mL (0.32-4.0); Total Protein 6.7 g/dL (6.5-8.0); Triglycerides 110 mg/dL; Vitamin D 25-OH Total 29.9 ng/mL (>30)
== END 2022-04-10 08:11 | disposition home or self-care (01) ==
LOC: HO.HMGCLDS 08:10
PROVIDERS: PCP Internal Medicine; Visit Provider Internal Medicine
DX: I20.1 Angina pectoris with documented spasm (principal); F31.62 Bipolar disorder, current episode mixed, moderate; N39.46 Mixed incontinence
CPT/HCPCS: 36415; 80053; 80061; 82306; 84443; 85025

== ENCOUNTER → 2022-08-14 09:51 | Outpatient (BNVA) | payer OTHER, MEDICARE, SELFPAY | PROVIDERS: PCP Internal Medicine; Visit Provider Psychiatry & Neurology Neurology | DX: Z13.89 Encounter for screening for other disorder (principal) ==

== ENCOUNTER 2022-08-26 08:27 | Outpatient (REF) | payer OTHER, MEDICARE, SELFPAY ==
[2022-08-26 11:17] LABS: MANUAL DIFF FLAG NO
[2022-08-26 11:50] LABS: Basophils Percent Auto 0.4 % (0-2); Eosinophils Absolute Auto 0.1 X10*3/uL (0.0-0.4); Eosinophils Percent Auto 2.5 % (0-4); Hematocrit 40.9 % (37.0-47.0); Hemoglobin 13.4 g/dl (12.0-16.0); Imm Gran Abs Auto 0.01 X10*3/uL (0.00-0.03); Imm Gran Pct Auto 0.2 % (0.0-0.4); Lymphocytes Absolute Auto 1.7 X10*3/uL (1.2-4.9); Lymphocytes Percent Auto 35.1 % (20-40); Mean Corpuscular HGB Conc 32.8 g/dl (31.0-35.0); Mean Corpuscular Hemoglobin 30.7 pg (27.0-33.0); Mean Corpuscular Volume 93.6 fL (80.0-98.0); Mean Platelet Volume 9.7 fL (9.4-12.3); Monocytes Absolute Auto 0.5 X10*3/uL (0.1-1.2); Monocytes Percent Auto 9.4 % (2-11); Neutrophils Absolute Auto 2.5 x10*3/uL (2.0-8.3); Neutrophils Percent Auto 52.4 % (45-73); Platelet Count 328 X10*3/uL (160-400); Red Blood Count 4.37 X10*6/uL (4.20-5.50); Red Cell Distribution Width 13.3 % (11.0-16.0); White Blood Count 4.8 X10*3/uL (4.8-10.8)
[2022-08-26 12:03] LABS: Cholesterol 258 mg/dL; HDL Cholesterol 66 mg/dL; LDL Cholesterol Calculated 160 mg/dl; Triglycerides 160 mg/dL
[2022-08-26 12:10] LABS: Alanine Aminotransferase 11 U/L (0-31); Albumin Level 4.1 g/dL (3.5-5.0); Alkaline Phosphatase 74 U/L (39-117); Anion Gap 13 (12-20); Aspartate Amino Transferase 20 U/L (5-31); Bilirubin Total 0.8 mg/dL (0.0-1.0); Blood Urea Nitrogen 16 mg/dL (9-16); Carbon Dioxide 25 mmol/L (22-29); Chloride 107 mmol/L (96-108); Estimated Glomerular Filt Rate > 60; Glucose Random 80 mg/dL (60-115); Potassium 4.5 mmol/L (3.3-5.1); Sodium 140 mmol/L (135-145); Total Protein 6.5 g/dL (6.5-8.0)
[2022-08-26 12:29] LABS: Ferritin 61 ng/mL (10-250); Folate 13.4 ng/mL (> or = 4.0); TSH reflex Free T4 0.93 uIU/mL (0.32-4.0); Vitamin B12 495 pg/mL (200-900)
== END 2022-08-26 08:28 | disposition home or self-care (01) ==
LOC: HO.HMGCLDS 08:27
PROVIDERS: Absent Provider Internal Medicine; PCP Internal Medicine; Visit Provider Psychiatry & Neurology Neurology
DX: D64.9 Anemia, unspecified (principal); R53.83 Other fatigue; I48.0 Paroxysmal atrial fibrillation; I20.1 Angina pectoris with documented spasm
CPT/HCPCS: 36415; 80053; 80061; 82607; 82728; 82746; 84443; 85025

== ENCOUNTER → 2022-09-17 12:53 | Outpatient (BNVA) | payer MEDICARE, OTHER, SELFPAY | PROVIDERS: PCP Internal Medicine; Visit Provider Neurological Surgery | DX: M47.812 Spondylosis without myelopathy or radiculopathy, cervical region (principal) | CPT/HCPCS: 99212 ==

== ENCOUNTER 2022-09-18 08:42 | Outpatient (REF) | payer MEDICARE, OTHER, SELFPAY ==
--- NOTE | ~2022-09-18 | US_ITS ---
EXAMINATION: US THYROID CLINICAL INFORMATION: Thyromegaly. COMPARISON: Ultrasound thyroid 09/05/2020 and 04/06/2018. TECHNIQUE: Linear transducer grayscale and color Doppler examination with attention to the region of the thyroid. FINDINGS: SIZE: Measurements of the thyroid lobes and nodules are given in sagittal, anteroposterior and transverse dimensions respectively. Right Thyroid Lobe: 6.3 x 2.2 x 3.3 cm, volume 24.0 mL. Previously 6.4 x 1.9 x 3.3 cm, volume 20.3 mL. Parenchyma: The gland echotexture is heterogeneous. Thyroid vascularity is increased. Left Thyroid Lobe: 7.4 x 3.0 x 2.9 cm, volume 33.7 mL. Previously 6.3 x 2.7 x 2.6 cm, volume 23.1 mL. Parenchyma: The gland echotexture is heterogeneous. Thyroid vascularity is increased. Isthmus: 0.8 cm in maximum AP dimension. Previously 0.4 cm. Estimated total number of nodules greater than or equal to 1 cm: 4. [employer] nodules are described as follows: 1. Location: Left mid. Size: 3.3 x 2.3 x 2.6 cm, volume 10.3 mL. Previously: 2.8 x 2.1 x 2.3 cm, volume 6.81 mL. Nodule characteristics: Composition: Solid (2). Echogenicity: Isoechoic (1). Shape: Not taller than wide (0). Margins: Irregular (2). Echogenic Foci: Macrocalcifications (1). ACR TI-RADS total points: 6 Previous: 6 ACR TI-RADS category: 4 Previous: 4 Significant change in size (>/= 20% in 2 dimensions and minimal increase of 2 mm or 50% or greater increase in volume): Minimal Change in features: None Change in ACR TI-RADS risk category: None 2. Location: Left inferior. Size: 2.3 x 1.4 x 2.1 cm, volume 3.58 mL. Previously: 2.3 x 1.6 x 2.2 cm, volume 4.28 mL. Nodule characteristics: Composition: Solid (2). Echogenicity: Hypoechoic (2). Shape: Not taller than wide (0). Margins: Smooth (0). Echogenic Foci: None (0). ACR TI-RADS total points: 4 Previous: 7 ACR TI-RADS category: 4 Previous: 5 Significant change in size (>/= 20% in 2 dimensions and minimal increase of 2 mm or 50% or greater increase in volume): None Change in features: None Change in ACR TI-RADS risk category: Improved 3. Location: Right superior. Size: 3.9 x 1.8 x 3.1 cm, volume 11.6 mL. Previously: 3.7 x 1.8 x 2.7 cm, volume 9.06 mL. Nodule characteristics: Composition: Solid/almost completely solid (2). Echogenicity: Isoechoic (1). Shape: Not taller than wide (0). Margins: Lobulated (2). Echogenic Foci: Macrocalcifications (1). Punctate echogenic foci (3). ACR TI-RADS total points: 9 Previous: 7 ACR TI-RADS category: 5 Previous: 5 Significant change in size (>/= 20% in 2 dimensions and minimal increase of 2 mm or 50% or greater increase in volume): Minimal Change in features: None Change in ACR TI-RADS risk category: None 4. Location: Right inferior. Size: 2.5 x 1.9 x 2.7 cm, volume 6.73 mL. Previously: Unable to compare. Nodule characteristics: Composition: Solid (2). Echogenicity: Isoechoic (1). Shape: Not taller than wide (0). Margins: Extrathyroidal extension (3). Echogenic Foci: Macrocalcifications (1). ACR TI-RADS total points: 7 ACR TI-RADS category: 5 NODES: No lymphadenopathy is seen in the tissue surrounding the thyroid gland. US/US thyroid IMPRESSION: 1. Solid nodules in the left and right lobe, the largest measuring 3.9 cm upper pole right lobe. The total points have increased, TI-RADS are the same. 2. Recommend ultrasound-guided fine-needle biopsy aspiration, right upper pole nodule. The left lower pole nodule TI-RADS and total points have decreased. Fine-needle biopsy of this nodule was recommended on the last exam. ACR TI-RADS RECOMMENDATION REFERENCE: Ultrasound-guided fine-needle aspiration, followup ultrasound, no further follow up. * TR1 (0 point) and TR2 (2 points): No FNA or follow up. * TR3 (3 points): FNA if more than or equal to 2.5 cm in maximum dimension, followup ultrasound in 1, 3 and 5 years if 1.5 to 2.4 cm in maximum dimension. * TR4 (4-6 points): FNA if more than or equal to 1.5 cm in maximum dimension, followup ultrasound in 1, 2, 3 and 5 years if 1 to 1.4 cm in maximum dimension. * TR5 (more than or equal to 7 points): FNA if more than or equal to 1 cm in maximum dimension, followup ultrasound every year for 5 years if 0.5 to 0.9 cm in maximum dimension. * TR3, TR4 or TR5 nodules that are below the size threshold for followup receive no follow up.
== END 2022-09-18 08:43 | disposition home or self-care (01) ==
LOC: HO.HMGCX 08:42
PROVIDERS: PCP Internal Medicine; Visit Provider Internal Medicine
DX: E01.0 Iodine-deficiency related diffuse (endemic) goiter (principal)
CPT/HCPCS: 76536

== ENCOUNTER → 2022-10-16 08:04 | Outpatient (BNVA) | payer MEDICARE, OTHER, SELFPAY | PROVIDERS: PCP Internal Medicine; Visit Provider Psychiatry & Neurology Neurology | DX: G25.81 Restless legs syndrome (principal); M47.816 Spondylosis without myelopathy or radiculopathy, lumbar region; M48.02 Spinal stenosis, cervical region | CPT/HCPCS: 99202 ==

== ENCOUNTER → 2022-10-25 14:49 | Outpatient (BNVA) | payer MEDICARE, OTHER, SELFPAY | PROVIDERS: PCP Internal Medicine; Visit Provider Nurse Practitioner Family | DX: M47.816 Spondylosis without myelopathy or radiculopathy, lumbar region (principal); M47.812 Spondylosis without myelopathy or radiculopathy, cervical region; M48.02 Spinal stenosis, cervical region; M62.838 Other muscle spasm; G25.81 Restless legs syndrome; G35 Multiple sclerosis | CPT/HCPCS: 99202 ==

== ENCOUNTER 2022-11-06 12:19 | Outpatient (REF) | payer MEDICARE, OTHER, SELFPAY | END 2022-11-06 12:20 | disposition home or self-care (01) | LOC: HO.HMGCX 12:19 | PROVIDERS: PCP Internal Medicine; Visit Provider Physician Assistant | DX: M77.31 Calcaneal spur, right foot (principal) | CPT/HCPCS: 73620; 73630 ==

== ENCOUNTER 2022-11-19 06:05 | Outpatient (REF) | payer MEDICARE, OTHER, SELFPAY ==
--- NOTE | ~2022-11-19 | FL_ITS ---
EXAMINATION: XR FLUOROSCOPY WITH IMAGES CLINICAL INFORMATION: Spondylosis without myelopathy or radiculopathy, lumbar region. COMPARISON: None available. TECHNIQUE: Fluoroscopy Supervised By: Dr. Lucio Lees. Fluoroscopy Time: 0.8 minutes. Cumulative Dose: 7.09 mGy. DAP: 0.123 Gycm2. Images: 6. FINDINGS: Images demonstrate needle placement and contrast injection adjacent to the bilateral lateral L3, L4 and L5 vertebrae. FL/FL guidance in treatment room IMPRESSION: Fluoroscopic guidance for pain management procedure.
== END 2022-11-19 06:06 | disposition home or self-care (01) ==
LOC: CF 06:05
PROVIDERS: Visit Provider Anesthesiology
DX: M47.816 Spondylosis without myelopathy or radiculopathy, lumbar region (principal); M47.812 Spondylosis without myelopathy or radiculopathy, cervical region; M48.02 Spinal stenosis, cervical region; G25.81 Restless legs syndrome; G35 Multiple sclerosis; M62.838 Other muscle spasm
CPT/HCPCS: 64493; 64494; 64495; Q9967

== ENCOUNTER 2022-11-20 14:41 | Outpatient (AMB) | payer OTHER, SELFPAY ==
--- OUTSIDE RECORDS SUMMARY | 2022-11-20 14:49 | XMS_ITS ---
Author Name Gustavo Suarez Address [address] [place], [place] [id number] Organization Gustavo Suarez DO, [facility] Address [address], [place] [id number] Care Team Providers Care [employer]ed [employer] Boards Inspector Name Role Phone Gustavo Suarez [facility] [phone] PROBLEMS Type Condition ICD9-CM Code [id number] Code Onset Dates Condition Status SNOMED Code Problem Ataxia R27.0 Active 41793099 Problem Dystonia, unspecified G24.9 Active 88961133 Problem Bipolar disorder, current episode mixed, moderate F31.62 Active 570433356 Problem Restless leg syndrome G25.81 Active 02115081 Problem Cervical radiculopathy M54.12 Active 66016505 Problem Thyromegaly E01.0 Active 7999167 Problem 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 Active 27353126 Problem Paroxysmal atrial fibrillation I48.0 Active 062228144 Problem RLS (restless legs syndrome) G25.81 Active Problem TIA (transient ischemic attack) G45.9 Active 179473167 Problem Mixed stress and urge urinary incontinence N39.46 Active 321690915 Problem Coronary artery spasm I20.1 Active 98646608 Problem Precordial pain R07.2 Active 68312710 Problem Postprandial vomiting R11.10 Active 957995007 Problem Epigastric pain R10.13 Active 56713320 ALLERGIES Substance Reaction Event Type Date Status Penicillin V Potassium urticaria Drug Allergy September, 3 Active ENCOUNTERS Encounter Location Date Diagnosis Gustavo Suarez DO, [address] [id number] Nov, Gustavo Suarez DO, [address] [id number] September, Gustavo Suarez DO, [address] [id number] September, Bipolar disorder, current episode mixed, moderate F31.62 ; Thyromegaly E01.0 ; Epigastric pain R10.13 ; Paroxysmal atrial fibrillation I48.0 ; Mixed stress and urge urinary incontinence N39.46 and Coronary artery spasm I20.1 Gustavo Suarez DO, [address] [id number] Aug, Gustavo Suarez DO, [address] [id number] Aug, Gustavo Suarez DO, [address] [id number] Aug, Gustavo Suarez DO, [address] [id number] Aug, Gustavo Suarez DO, [address] [id number] Aug, Gustavo Suarez DO, [address] [id number] Jun, Gustavo Suarez DO, [address] [id number] May, Paroxysmal atrial fibrillati on I48.0 ; Bipolar disorder, current episode mixed, moderate F31.62 ; Mixed stress and urge urinary incontinence N39.46 and Coronary artery spasm I20.1 Gustavo Suarez DO, [address] [id number] May, Gustavo Suarez DO, [address] [id number] Apr, Gustavo Suarez DO, [address] [id number] Apr, Gustavo Suarez DO, [address] [id number] Mar, Gustavo Suarez DO, [address] [id number] Mar, Coronary artery spasm I20.1 ; Bipolar disorder, current episode mixed, moderate F31.62 and Mixed stress and urge urinary incontinence N39.46 Gustavo Suarez DO, [address] [id number] 14 Mar, 2022 Coronary artery spasm I20.1 Gustavo Suarez DO, [address] [id number] 08 Mar, 2022 Gustavo Suarez DO, [address] [id number] Feb, Gustavo Suarez DO [address] [id number] Dec, Gustavo Suarez DO [address] [id number] Dec, Mold exposure Z77.120 Gustavo Suarez DO, [address] [id number] Nov, Bipolar disorder, current episode mixed, moderate F31.62 ; Coronary artery spasm I20.1 ; Paroxysmal atrial fibrillation I48.0 ; RLS (restless legs syndrome) G25.81 and Mixed stress and urge urinary incontinence N39.46 Gustavo Suarez DO, [address] [id number] Nov, Coronary artery spasm I20.1 Gustavo Suarez DO, [address] [id number] Nov, Gustavo Suarez DO [address] [id number] Oct, Fatigue, unspecified type R53.83 Gustavo Suarez DO [address] [id number] Oct, Gustavo Suarez DO [address] [id number] Oct, TIA (transient ischemic rebeka ck) G45.9 ; Paroxysmal atrial fibrillation I48.0 ; Coronary artery spasm I20.1 ; Bipolar disorder, current episode mixed, moderate F31.62 ; RLS (restless legs syndrome) G25.81 ; Mixed stress and urge urinary incontinence N39.46 and Inhalation of noxious fumes, accidental or unintentional, subsequent encounter T59.91XD Gustavo Suarez DO, [address] [id number] Oct, Gustavo Suarez DO [address] [id number] September, Gustavo Suarez DO [address] [id number] September, Coronary artery spasm I20.1 Gustavo Suarez DO, [address] [id number] Aug, Gustavo Suarez DO, [address] [id number] 08 Aug, 2021 Inhalation of noxious fumes, accidental or unintentional, subsequent encounter T59.91XD ; Coronary artery spasm I20.1 ; Epigastric pain R10.13 ; Paroxysmal atrial fibrillation I48.0 ; TIA (transient ischemic attack) G45.9 ; Bipolar disorder, current episode mixed, moderate F31.62 ; RLS (restless legs syndrome) G25.81 and Mixed stress and urge urinary incontinence N39.46 Gustavo Suarez DO, [address] [id number] Jul, Gustavo Suarez DO [address] [id number] Jul, Inhalation of noxious fumes, accidental or unintentional, subsequent encounter T59.91XD ; Coronary artery spasm I20.1 ; Epigastric pain R10.13 ; Bipolar disorder, current episode mixed, moderate F31.62 ; RLS (restless legs syndrome) G25.81 and Mixed stress and urge urinary incontinence N39.46 Gustavo Suarez DO, [address] [id number] Apr, Gustavo Suarez DO [address] [id number] Apr, Gustavo Suarez DO [address] [id number] Apr, Gustavo Suarez DO [address] [id number] Mar, Gustavo Suarez DO [address] [id number] Mar, Gustavo Suarez DO [address] [id number] Feb, Coronary artery spasm I20.1 ; Bipolar disorder, current episode mixed, moderate F31.62 ; RLS (restless legs syndrome) G25.81 and Mixed stress and urge urinary incontinence N39.46 Gustavo Suarez DO [address] [id number] Jan, Gustavo Suarez DO, [address] [id number] Dec, TIA (transient ischemic rebeka ck) G45.9 ; 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 ; Mixed stress and urge urinary incontinence N39.46 ; Essential hypertension I10 ; Bipolar disorder, current episode mixed, moderate F31.62 ; RLS (restless legs syndrome) G25.81 and Precordial pain R07.2 Gustavo Suarez DO, [address] [id number] Dec, Gustavo Suarez DO, [address] [id number] Dec, RLS (restless legs syndrome) G25.81 ; Precordial pain R07.2 ; 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 ; Paroxysmal atrial fibrillation I48.0 ; Bipolar disorder, current episode mixed, moderate F31.62 and Mixed stress and urge urinary incontinence N39.46 Gustavo Suarez DO, [address] [id number] Nov, Gustavo Suraez DO [address] [id number] Oct, Gustavo Suarez DO [address] [id number] Oct, Coronary artery spasm I20.1 ; Thyromegaly E01.0 ; Bipolar disorder, current episode mixed, moderate F31.62 ; Cervical radiculopathy M54.12 and Mixed stress and urge urinary incontinence N39.46 Gustavo Suarez DO [address] [id number] September, Gustavo Suarez DO [address] [id number] September, Gustavo Suarez DO [address] [id number] September, Gustavo Suarez DO [address] [id number] Aug, Paroxysmal atrial fibrillati on I48.0 ; Coronary artery spasm I20.1 ; Bipolar disorder, current episode mixed, moderate F31.62 and Mixed stress and urge urinary incontinence N39.46 Gustavo Suarez DO [address] [id number] Aug, Coronary artery spasm I20.1 ; Bipolar disorder, current episode mixed, moderate F31.62 and Mixed stress and urge urinary incontinence N39.46 Gustavo Suarez DO, [address] [id number] Aug, Gustavo Suarez DO, [address] [id number] Aug, Gustavo Suarez DO, [address] [id number] 30 Jul, 2020 Coronary artery spasm I20.1 ; Bipolar disorder, current episode mixed, moderate F31.62 and Mixed stress and urge urinary incontinence N39.46 Gustavo Suarez DO, [address] [id number] Jul, Essential hypertension I10 ; Bipolar disorder, current episode mixed, moderate F31.62 ; Thyromegaly E01.0 ; Coronary artery spasm I20.1 and Mixed stress and urge urinary incontinence N39.46 Gustavo Suarez DO, [address] [id number] Jul, Gustavo Suarez DO, [address] [id number] Jul, Gustavo Suarez DO [address] [id number] Jun, Gustavo Suarez DO [address] [id number] Dec, Coronary artery spasm I20.1 ; Bipolar disorder, current episode mixed, moderate F31.62 ; RLS (restless legs syndrome) G25.81 and Mixed stress and urge urinary incontinence N39.46 Gustavo Suarez DO, [address] [id number] Nov, Gustavo Suarez DO, [address] [id number] Nov, Coronary artery spasm I20.1 ; Bipolar disorder, current episode mixed, moderate F31.62 ; Nonhealing nonsurgical wound T14.8XXA and Mixed stress and urge urinary incontinence N39.46 Gustavo Suarez DO, [address] [id number] Nov, Coronary artery spasm I20.1 Gustavo Suarez DO [address] [id number] Oct, Gustavo Suarez DO, F[facility] [address] [place] [address] [id number] Oct, Coronary artery spasm I20.1 ; Bipolar disorder, current episode mixed, moderate F31.62 ; Mixed stress and urge urinary incontinence N39.46 and Breast cancer screening Z12.39 Gustavo Suarez DO, [address] [id number] Oct, Gustavo Suarez DO, [address] [id number] September, Gustavo Suarez DO, [address] [id number] September, Gustavo Suarez DO, [address] [id number] September, Coronary artery spasm I20.1 ; Bipolar disorder, current episode mixed, moderate F31.62 and Mixed stress and urge urinary incontinence N39.46 Gustavo Suarez DO, [address] [id number] September, Gustavo Suarez DO, [address] [id number] Aug, RLS (restless legs syndrome) G25.81 and Coronary artery spasm I20.1 Gustavo Suarez DO, [address] [id number] Aug, Gustavo Suarez DO [address] [place] [address] [id number] Aug, Gustavo Suraez DO, [address] [id number] Aug, Gustavo Suarez DO, [address] [id number] Aug, Gustavo Suarez DO, [address] [id number] Jul, RLS (restless legs syndrome) G25.81 Gustavo Suarez DO, [address] [id number] Jul, Epigastric pain R10.13 ; Coronary artery spasm I20.1 ; Essential hypertension I10 ; Bipolar disorder, current episode mixed, moderate F31.62 ; Mixed stress and urge urinary incontinence N39.46 and RLS (restless legs syndrome) G25.81 Gustavo Suarez DO, [address] [id number] Jun, Gustavo Suarez DO, [address] [id number] Jun, Gustavo Suarez DO, [address] [id number] Jun, Gustavo Suarez DO, [address] [id number] Jun, Gustavo Suarez DO, [address] [id number] Jun, Gustavo Suarez DO, [address] [id number] Jun, Gustavo Suarez DO, [address] [id number] Jun, Epigastric pain R10.13 ; Postprandial vomiting R11.10 ; Coronary artery spasm I20.1 ; Bipolar disorder, current episode mixed, moderate F31.62 ; Mixed stress and urge urinary incontinence N39.46 and RLS (restless legs syndrome) G25.81 Gustavo Suarez DO, [address] [id number] Jun, Gustavo Suarez DO, [address] [id number] Jun, Gustavo Suarez DO, [address] [id number] Jun, Gustavo Suarez DO, [address] [id number] Feb, Dermatitis L30.9 Gustavo Suarez DO, [address] [id number] Feb, Coronary artery spasm I20.1 ; Bipolar disorder, current episode mixed, moderate F31.62 ; Mixed stress and urge urinary incontinence N39.46 and RLS (restless legs syndrome) G25.81 Gustavo Suarez DO, [address] [id number] Jan, Gustavo Suarez DO, [address] [id number] Nov, Gustavo Suarez DO, [address] [id number] Nov, Coronary artery spasm I20.1 ; Bipolar disorder, current episode mixed, moderate F31.62 ; RLS (restless legs syndrome) G25.81 and Mixed stress and urge urinary incontinence N39.46 Gustavo Suarez DO, [address] [id number] Nov, Gustavo Suarez DO [address] [id number] Nov, Coronary artery spasm I20.1 ; 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 5 ; Bipolar disorder, current episode mixed, moderate F31.62 ; Mixed stress and urge urinary incontinence N39.46 and RLS (restless legs syndrome) G25.81 Gustavo Suarez DO [address] [id number] September, Gustavo Suarez DO [address] [id number] September, Gustavo Suarez DO [address] [id number] Aug, Gustavo Suarez DO [address] [id number] Aug, Precordial pain R07.2 ; Bipo lar disorder, current episode mixed, moderate F31.62 ; RLS (restless legs syndrome) G25.81 and Mixed stress and urge urinary incontinence N39.46 Gustavo Suarez DO [address] [id number] Aug, Gustavo Suarez DO [address] [id number] Jul, Gustavo Suarez DO [address] [id number] Jul, Chest discomfort R07.89 ; Bipolar disorder, current episode mixed, moderate F31.62 ; Cervical radiculopathy M54.12 and Mixed stress and urge urinary incontinence N39.46 Gustavo Suarez DO, [address] [id number] Jun, Bipolar disorder, current episode mixed, moderate F31.62 ; Cervical radiculopathy M54.12 and Mixed stress and urge urinary incontinence N39.46 Gustavo Suarez DO, [address] [id number] May, Cervical radiculopathy M54.1 2 Gustavo Suarez DO, [address] [id number] May, Cervical radiculopathy M54.1 2 Gustavo Suarez DO, [address] [id number] May, Gustavo Suarez DO, [address] [id number] Apr, Gustavo Suarez DO, [address] [id number] Apr, Gustavo Suarez DO, [address] [id number] Apr, Cervical radiculopathy M54.1 2 Gustavo Suarez DO, [address] [id number] Apr, Cervical radiculopathy M54.1 2 Gustavo Suarez DO, [address] [id number] Apr, Gustavo Suarez DO, [address] [id number] Apr, Gustavo Suarez DO, [address] [id number] Apr, Cervical radiculopathy M54.1 2 ; Mixed stress and urge urinary incontinence N39.46 ; Bipolar disorder, current episode mixed, moderate F31.62 and Essential hypertension I10 Gustavo Suarez DO, [address] [id number] Apr, Gustavo Suarez DO, [address] [id number] Apr, Gustavo Suarez DO, [address] [id number] Mar, Gustavo Suarez DO, [address] [id number] Mar, Closed fracture of one rib o f right side, initial encounter S22.31XA ; Cervical radiculopathy M54.12 ; Essential hypertension I10 ; Mixed stress and urge urinary incontinence N39.46 ; Bipolar disorder, current episode mixed, moderate F31.62 ; Thyromegaly E01.0 and Cough R05 Gustavo Suarez DO, [address] [id number] Mar, Gustavo Suarez DO, [address] [id number] Mar, Gustavo Suarez DO, [address] [id number] Mar, Gustavo Suarez DO, [address] [id number] Mar, Gustavo Suarez DO, [address] [id number] Mar, Cough R05 ; Cervical radiculopathy M54.12 ; Mixed stress and urge urinary incontinence N39.46 ; Bipolar disorder, current episode mixed, moderate F31.62 ; Essential hypertension I10 and Canker sores oral K12.0 Gustavo Suarez DO, [address] [id number] Mar, Gustavo Suarez DO, [address] [id number] Feb, Gustavo Suarez DO, [address] [id number] Feb, Gustavo Suarez DO, [address] [id number] Feb, Canker sores oral K12.0 Gustavo Suarez DO, [address] [id number] Feb, Gustavo Suarez DO, [address] [id number] Feb, Cervical radiculopathy M54.1 2 ; Essential hypertension I10 ; Mixed stress and urge urinary incontinence N39.46 and Bipolar disorder, current episode mixed, moderate F31.62 Gutsavo Suarez DO, [address] [id number] Jan, Cervical radiculopathy M54.1 2 ; Bipolar disorder, current episode mixed, moderate F31.62 ; Essential hypertension I10 ; Mixed stress and urge urinary incontinence N39.46 and RLS (restless legs syndrome) G25.81 Gustavo Suarez DO, [address] [id number] Nov, RLS (restless legs syndrome) G25.81 ; Essential hypertension I10 ; Bipolar disorder, current episode mixed, moderate F31.62 and Mixed stress and urge urinary incontinence N39.46 Gustavo Suarez DO, [address] [id number] Nov, Gustavo Suarez DO, F[facility] [address] [place] [address] [id number] Oct, Essential hypertension I10 ; RLS (restless legs syndrome) G25.81 ; Bipolar disorder, current episode mixed, moderate F31.62 and Mixed stress and urge urinary incontinence N39.46 Gustavo Suarez DO [address] [id number] September, Gustavo Suarez DO [address] [id number] September, Gustavo Suarez DO, [address] [id number] September, Essential hypertension I10 Gustavo Suarez DO [address] [id number] September, Gustavo Suarez DO, [address] [id number] September, Essential hypertension I10 ; Mixed stress and urge urinary incontinence N39.46 ; RLS (restless legs syndrome) G25.81 and Bipolar disorder, current episode mixed, moderate F31.62 Gustavo Suarez DO, [facility] [address], [place] [id number] September, Gustavo Suarez DO, F[facility] [address] [place] [address] [id number] September, Essential hypertension I10 ; Bipolar disorder, current episode mixed, moderate F31.62 ; Mixed stress and urge urinary incontinence N39.46 and RLS (restless legs syndrome) G25.[address] [facility] [address], [place] [id number] Aug, Gustavo Suarez DO [facility] [address], [place] [id number] Jun, Bipolar disorder, current episode mixed, moderate F31.62 ; Essential hypertension I10 ; Mixed stress and urge urinary incontinence N39.46 and Restlessness R45.1 Gustavo Suarez DO, [address] [id number] May, Bipolar disorder, current episode mixed, moderate F31.62 and Mixed stress and urge urinary incontinence N39.46 Gustavo Suarez DO, [address] [id number] May, Gustavo Suarez DO, [address] [id number] Mar, Bunion of right foot M21.611 ; Essential hypertension I10 ; Mixed stress and urge urinary incontinence N39.46 and Bipolar disorder, current episode mixed, moderate F31.62 Gustavo Suarez DO, [address] [id number] Feb, Incontinence of feces, unspecified fecal incontinence type R15.9 ; Essential hypertension I10 ; Mixed stress and urge urinary incontinence N39.46 and Bipolar disorder, current episode mixed, moderate F31.62 Gustavo Suarez DO, [address] [id number] Feb, Gustavo Suarez DO, [address] [id number] Jan, Gustavo Suarez DO, [address] [id number] Jan, Pain in left shoulder M25.51 2 Gustavo Suarez DO, [address] [id number] Nov, Bipolar disorder, current episode mixed, moderate F31.62 and Mixed stress and urge urinary incontinence N39.46 Gustavo Suarez DO, [address] [id number] Nov, Bipolar disorder, current episode mixed, moderate F31.62 ; Essential hypertension I10 and Mixed stress and urge urinary incontinence N39.46 Gustavo Suarez DO [address] [id number] September, Contusion of right hand, initial encounter S60.221A Gustavo Suarez DO, [address] [id number] Jun, Mixed stress and urge urinar y incontinence N39.46 and Bipolar disorder, current episode mixed, moderate F31.62 Gustavo Janeman DO, [address] [id number] Jun, Gustavo Suarez DO, [address] [id number] Jun, Gustavo Denise Suarez DO, [address] [id number] Jun, Gustavo Denise Suarez DO, [address] [id number] Jun, Bipolar disorder, current episode mixed, moderate F31.62 and Pain of left thumb M79.645 Gustavo Suarez DO, [address] [id number] May, Gustavo Suarez DO, [address] [id number] Apr, Gustavo Suarez DO, [address] [id number] Mar, Gustavo Suarez DO, [address] [id number] Mar, Essential hypertension I10 a nd Bipolar disorder, current episode mixed, moderate F31.62 Gustavo Suarez DO, [address] [id number] Jan, Acute gastritis without hemorrhage, unspecified gastritis type K29.00 and Bipolar disorder, current episode mixed, moderate F31.62 Gustavo Suarez DO, [address] [id number] Jan, Acute gastritis without hemorrhage, unspecified gastritis type K29.00 Gustavo Suarez DO, [address] [id number] Oct, Bipolar disorder, current episode mixed, moderate F31.62 and Essential hypertension I10 Gustavo Suarez DO, [address] [id number] Oct, Gustavo Suarez DO, [address] [id number] Oct, Gustavo Suarez DO, [address] [id number] Oct, Dermatitis L30.9 ; Tremor R2 5.1 ; Bipolar disorder, current episode mixed, moderate F31.62 and Essential hypertension I10 Gustavo Suarez DO, [address] [id number] Aug, Essential hypertension I10 ; Bipolar disorder, current episode mixed, moderate F31.62 and Cervical disc disease M50.90 Gustavo Suarez DO, [address] [id number] Jul, Gustavo Suarez DO, [address] [id number] May, Bipolar disorder, current episode mixed, moderate F31.62 and Essential hypertension I10 Gustavo Suarez DO [address] [id number] Apr, Gustavo Suarez DO, [address] [id number] Feb, Atypical chest pain 786.59 Gustavo Suarez DO [address] [id number] Dec, Gustavo Suarez DO, [address] [id number] Nov, Atypical chest pain 786.59 Gustavo Suarez DO, [address] [id number] Oct, Gustavo Suarez DO [address] [id number] Oct, Atypical chest pain 786.59 Gustavo Suarez DO, [address] [id number] September, Gustavo Suarez DO [address] [id number] Aug, Gustavo Suarez DO, [address] [id number] Feb, Hair loss 704.00 ; Ecchymosi s 459.89 and Fibrocystic breast disease 610.1 Gustavo Suarez DO [address] [id number] Dec, Hair loss 704.00 and Ecchymo sis 459.89 Gustavo Suarez DO [address] [id number] Dec, Gustavo Suarez DO [address] [id number] Oct, Bipolar disorder, unspecifie d 296.80 Gustavo Suarez DO [address] [id number] Jun, Back pain 724.5 Gustavo Suarez DO [address] [id number] May, Gustavo Suarez DO [address] [id number] May, Right shoulder injury 959.2 Gustavo Suarze DO [address] [id number] Apr, Gustavo Suarez DO [address] [id number] Apr, Routine general medical examination at health care facility V70.0 ; Hypertension 401.9 ; Hypercholesterolemia 272.0 ; Bipolar disorder, unspecified 296.80 and Diarrhea 787.91 Gustavo Suarez DO [address] [id number] Jan, Hypertension 401.9 ; Bipolar disorder, unspecified 296.80 ; Herpes simplex without mention of complication 054.9 ; Sleep disorder 780.50 and Diarrhea 787.91 Gustavo Suarez DO [address] [id number] Nov, Hypertension 401.9 ; Bipolar disorder, unspecified 296.80 ; Sleep disorder 780.50 and Diarrhea 787.91 Gustavo Suarez DO [address] [id number] September, Gustavo Suarez DO [address] [id number] September, Hypertension 401.9 ; Hypercholesterolemia 272.0 ; Herpes simplex without mention of complication 054.9 ; Bipolar disorder, unspecified 296.80 and Sleep disorder 780.50 Gustavo Suarez DO [address] [id number] Jun, Gustavo Suarez DO [address] [id number] Mar, Hypertension 401.9 ; Bipolar disorder, unspecified 296.80 ; Herpes simplex without mention of complication 054.9 and Hypercholesterolemia 272.0 Gustavo Suarez DO [address] [id number] Feb, Hypertension 401.9 Gustavo Suarez DO [address] [id number] Feb, Routine general medical examination at health care facility V70.0 Gustavo Suarez DO [address] [id number] Oct, Gustavo Suarez DO [address] [id number] Mar, Hypertension 401.9 ; Bipolar disorder, unspecified 296.80 and Herpes simplex without mention of complication 054.9 IMMUNIZATIONS Vaccine Route Administration Date Status COVID-19 Pfizer BioNTech Unknown Dec 13, 2020 Adm inistered Shingrix Unknown Dec 08, 2017 Administered COVID-19 Pfizer BioNTech Unknown September 14, 2021 Adm inistered Influenza Quad IM Intramuscular Mar 12, 2016 Administe red H1N1 Unknown August 14, 2009 Administered SOCIAL HISTORY Qualifiers Date Former Smoker REASON FOR REFERRAL FUNCTIONAL STATUS PLAN OF CARE Activity Details VITAL SIGNS Weight 130 lbs 2022-05-24 Weight 125 lbs 2022-03-19 Weight 136 lbs 2021-08-10 Weight 149 lbs 2021-02-20 Weight 141 lbs 2020-10-17 Weight 140 lbs 2020-08-29 Weight 142 lbs 2020-08-22 Weight 145 lbs 2020-07-18 Weight 141 lbs 2019-12-13 Weight 140 lbs 2019-11-01 Weight 147 lbs 2019-07-12 Weight 150 lbs 2019-06-22 Weight 154 lbs 2019-02-23 Weight 156 lbs 2019-02-19 Weight 153 lbs 2018-11-23 Weight 154 lbs 2018-11-10 Weight 156 lbs 2018-09-08 Weight 156 lbs 2018-08-11 Weight 160 lbs 2018-07-13 Weight 163 lbs 2018-06-23 Weight 150 lbs 2018-04-15 Weight 146 lbs 2018-04-02 Weight 147 lbs 2018-03-10 Weight 148 lbs 2018-02-18 Weight 147 lbs 2018-02-03 Weight 140 lbs 2018-01-19 Weight 151 lbs 2017-11-12 Weight 154 lbs 2017-10-08 Weight 155 lbs 2017-09-09 Weight 154 lbs 2017-09-02 Weight 158 lbs 2017-07-02 Weight 158 lbs 2017-06-04 Weight 152 lbs 2017-03-21 Weight 147 lbs 2017-02-04 Weight 149 lbs 2017-01-15 Weight 146 lbs 2016-11-18 Weight 147 lbs 2016-11-15 Weight 140 lbs 2016-09-18 Weight 136 lbs 2016-06-21 Weight 133 lbs 2016-06-06 Weight 131 lbs 2016-03-06 Weight 135 lbs 2016-01-18 Weight 136 lbs 2016-01-05 Weight 145 lbs 2015-10-04 Weight 145 lbs 2015-08-21 Weight 146 lbs 2015-05-10 Weight 145 lbs 2015-02-21 Weight 144 lbs 2014-11-14 Weight 145 lbs 2014-10-03 Weight 138 lbs 2014-02-16 Weight 138 lbs 2013-12-14 Weight 139 lbs 2013-10-12 Weight 137 lbs 2013-06-15 Weight 140 lbs 2013-05-10 Weight 136 lbs 2013-04-07 Weight 141 lbs 2013-01-11 Weight 140 lbs 2012-12-02 Weight 145 lbs 2012-09-02 Weight 152 lbs 2012-03-31 Weight 149 lbs 2012-02-28 Weight 154 lbs 2011-03-18 Height 63 in 2022-05-24 Height 63 in 2022-03-19 Height 63 in 2021-08-10 Height 63 in 2021-02-20 Height 63 in 2020-10-17 Height 63 in 2020-08-29 Height 63 in 2020-08-22 Height 63 in 2020-07-18 Height 64 in 2019-12-13 Height 64 in 2019-11-01 Height 64 in 2019-07-12 Height 64 in 2019-06-22 Height 64 in 2019-02-23 Height 64 in 2019-02-19 Height 64 in 2018-11-23 Height 64 in 2018-11-10 Height 64 in 2018-09-08 Height 64 in 2018-08-11 Height 64 in 2018-07-13 Height 64 in 2018-06-23 Height 64 in 2018-04-15 Height 64 in 2018-04-02 Height 64 in 2018-03-10 Height 64 in 2018-02-18 Height 64 in 2018-02-03 Height 64 in 2018-01-19 Height 64 in 2017-11-12 Height 64 in 2017-10-08 Height 64 in 2017-09-09 Height 64 in 2017-09-02 Height 64 in 2017-07-02 Height 64 in 2017-06-04 Height 64 in 2017-03-21 Height 64 in 2017-02-04 Height 64 in 2017-01-15 Height 64 in 2016-11-18 Height 64 in 2016-11-15 Height 64 in 2016-09-18 Height 64 in 2016-06-21 Height 64 in 2016-06-06 Height 64 in 2016-03-06 Height 64 in 2016-01-18 Height 64 in 2016-01-05 Height 64 in 2015-10-04 Height 64 in 2015-08-21 Height 64 in 2015-05-10 Height 64 in 2015-02-21 Height 64 in 2014-11-14 Height 64 in 2014-10-03 Height 64 in 2014-02-16 Height 64 in 2013-12-14 Height 64 in 2013-10-12 Height N/A in 2013-06-15 Height N/A in 2013-05-10 Height 64 in 2013-04-07 Height N/A in 2013-01-11 Height N/A in 2012-12-02 Height N/A in 2012-09-02 Height N/A in 2012-03-31 Height 64 in 2012-02-28 Height 67 in 2011-03-18 BMI 23.03 kg/m2 2022-05-24 BMI 22.14 kg/m2 2022-03-19 BMI 24.09 kg/m2 2021-08-10 BMI 26.39 kg/m2 2021-02-20 BMI 24.97 kg/m2 2020-10-17 BMI 24.80 kg/m2 2020-08-29 BMI 25.15 kg/m2 2020-08-22 BMI 25.68 kg/m2 2020-07-18 BMI 24.20 kg/m2 2019-12-13 BMI 24.03 kg/m2 2019-11-01 BMI 25.23 kg/m2 2019-07-12 BMI 25.74 kg/m2 2019-06-22 BMI 26.43 kg/m2 2019-02-23 BMI 26.77 kg/m2 2019-02-19 BMI 26.26 kg/m2 2018-11-23 BMI 26.43 kg/m2 2018-11-10 BMI 26.77 kg/m2 2018-09-08 BMI 26.77 kg/m2 2018-08-11 BMI 27.46 kg/m2 2018-07-13 BMI 27.98 kg/m2 2018-06-23 BMI 25.74 kg/m2 2018-04-15 BMI 25.06 kg/m2 2018-04-02 BMI 25.23 kg/m2 2018-03-10 BMI 25.40 kg/m2 2018-02-18 BMI 25.23 kg/m2 2018-02-03 BMI 24.03 kg/m2 2018-01-19 BMI 25.92 kg/m2 2017-11-12 BMI 26.43 kg/m2 2017-10-08 BMI 26.60 kg/m2 2017-09-09 BMI 26.43 kg/m2 2017-09-02 BMI 27.12 kg/m2 2017-07-02 BMI 27.12 kg/m2 2017-06-04 BMI 26.09 kg/m2 2017-03-21 BMI 25.23 kg/m2 2017-02-04 BMI 25.57 kg/m2 2017-01-15 BMI 25.06 kg/m2 2016-11-18 BMI 25.23 kg/m2 2016-11-15 BMI 24.03 kg/m2 2016-09-18 BMI 23.34 kg/m2 2016-06-21 BMI 22.83 kg/m2 2016-06-06 BMI 22.48 kg/m2 2016-03-06 BMI 23.17 kg/m2 2016-01-18 BMI 23.34 kg/m2 2016-01-05 BMI 24.89 kg/m2 2015-10-04 BMI 24.89 kg/m2 2015-08-21 BMI 25.06 kg/m2 2015-05-10 BMI 24.89 kg/m2 2015-02-21 BMI 24.71 kg/m2 2014-11-14 BMI 24.89 kg/m2 2014-10-03 BMI 23.69 kg/m2 2014-02-16 BMI 23.69 kg/m2 2013-12-14 BMI 23.86 kg/m2 2013-10-12 BMI 23.51 kg/m2 2013-06-15 BMI 24.03 kg/m2 2013-05-10 BMI 23.34 kg/m2 2013-04-07 BMI 24.20 kg/m2 2013-01-11 BMI 24.03 kg/m2 2012-12-02 BMI 24.89 kg/m2 2012-09-02 BMI 26.09 kg/m2 2012-03-31 BMI 25.57 kg/m2 2012-02-28 BMI 24.12 kg/m2 2011-03-18 Heart Rate 71 /min 2021-08-10 Heart Rate 73 /min 2020-10-17 Heart Rate 76 /min 2020-08-29 Heart Rate 93 /min 2020-07-18 Heart Rate 85 /min 2019-12-13 Heart Rate 100 /min 2019-07-12 Heart Rate 76 /min 2018-11-23 Heart Rate 68 /min 2018-11-10 Heart Rate 84 /min 2018-09-08 Heart Rate 80 /min 2018-08-11 Heart Rate 96 /min 2018-07-13 Heart Rate 76 /min 2017-10-08 Heart Rate 88 /min 2017-09-09 Heart Rate 84 /min 2016-03-06 Heart Rate 76 /min 2014-10-03 Temperature 97.6 degrees Fahrenheit Temperature 97.6 degrees Fahrenheit Temperature 97.6 degrees Fahrenheit Blood pressure systolic 115 mm Hg Blood pressure diastolic 70 mm Hg 2022-05 MEDICATIONS Medication Instructions Dosage Frequency Start Date End Date Duration Status Valtrex 1 GM Orally Once a day 1 tablet 24h Active LORazepam 2 MG Orally Once a day 1.5 tablet at bedtime as needed 24h Active Apixaban 5 MG Orally Twice a day 1 tablet 12h Active Nitroglycerin 0.4 MG Sublingual Once a day PLACE 1 TABLET UNDER THE TONGUE EVERY 5 MINUTES IF NEEDED FOR CHEST PAIN FOR UP TO 3 DOSES 24h Active Ergocalciferol 1.25 MG (75324 UT) Orally Once a week 1 capsule Active Trintellix 5 MG Orally Once a day 0.5 tablet 24h Active LaMICtal XR 200 MG Orally Once a day 2 tablets 24h Active Estradiol 0.075 MG/24HR Transdermal Once a week 1 patch to skin Active Omeprazole 20 MG TAKE 1 CAPSULE BY MOUTH EVERY DAY 30 MINUTES BEFORE BREAKFAST 90 Active Gabapentin 600 MG Orally Once a day 2 tablets at bedtime 24h Active PROCEDURES Procedure Date Ordered Result Body Site DOC MEDS VERIFIED W/PT OR RE September 10, 2019 BMI<30 AND >=22 CALC & DOCU Jun 06, 2016 DOC MEDS VERIFIED W/PT OR RE Jan 15, 2017 DOC MEDS VERIFIED W/PT OR RE November 18, 2016 DOC MEDS VERIFIED W/PT OR RE September 02, 2017 [facility] MED/CURRENT MED MERGE August 01, 2020 DOC MEDS VERIFIED W/PT OR RE Jun 22, 2019 DOC MEDS VERIFIED W/PT OR RE Jun 23, 2018 COLORECTAL CA SCREEN DOC REV Mar 19, 2022 DOC MEDS VERIFIED W/PT OR RE August 22, 2020 DOC MEDS VERIFIED W/PT OR RE July 12, 2019 [facility] MED/CURRENT MED MERGE July 18, 2020 COLORECTAL CA SCREEN DOC REV Dec 13, 2019 DOC MEDS VERIFIED W/PT OR RE Apr 02, 2018 DOC MEDS VERIFIED W/PT OR RE Jun 21, 2016 FLU VACC 4 FILIBERTO 3 YRS PLUS IM Mar 12, 2016 DOC MEDS VERIFIED W/PT OR RE October 08, 2017 FLU IMM NO ORD/ADMIN DOC ABDULAZIZ Feb 19, 2019 URINE-NO MICRO Feb 28, 2012 -ELECTROCARDIOGRAM, COMPLETE Jun 04, 2017 Trans Care Mgmt 7 Day Disc Jun 23, 2018 FLU IMM NO ORD/ADMIN DOC ABDULAZIZ Jan 15, 2017 DOC MEDS VERIFIED W/PT OR RE August 01, 2020 TOBACCO NON-USER November 15, 2019 DOC MEDS VERIFIED W/PT OR RE October 17, 2020 DOC MEDS VERIFIED W/PT OR RE August 29, 2020 TOBACCO NON-USER July 12, 2019 TOBACCO NON-USER August 22, 2020 DOC MEDS VERIFIED W/PT OR RE Feb 19, 2019 DOC MEDS VERIFIED W/PT OR RE July 13, 2018 TOBACCO NON-USER September 10, 2019 DOC MEDS VERIFIED W/PT OR RE September 09, 2017 DOC MEDS VERIFIED W/PT OR RE August 11, 2018 DOC MEDS VERIFIED W/PT OR RE November 15, 2019 DOC MEDS VERIFIED W/PT OR RE September 18, 2016 DOC MEDS VERIFIED W/PT OR RE November 10, 2018 Trans Care Mgmt 7 Day Disc August 11, 2018 DOC MEDS VERIFIED W/PT OR RE November 23, 2018 DOC MEDS VERIFIED W/PT OR RE Feb 04, 2017 DOC MEDS VERIFIED W/PT OR RE November 15, 2016 Trans Care Mgmt 7 Day Disc August 29, 2020 URINE-NO MICRO Apr 07, 2013 COLORECTAL CA SCREEN DOC REV November 01, 2019 DOC MEDS VERIFIED W/PT OR RE Jun 04, 2017 DOC MEDS VERIFIED W/PT OR RE November 01, 2019 TOBACCO NON-USER Feb 23, 2019 DOC MEDS VERIFIED W/PT OR RE July 18, 2020 TOBACCO NON-USER Jun 06, 2016 Imms Admin Mar 12, 2016 DOC MEDS VERIFIED W/PT OR RE Dec 13, 2019 DOC MEDS VERIFIED W/PT OR RE Mar 19, 2022 TOBACCO NON-USER Feb 19, 2019 TOBACCO NON-USER November 01, 2019 DOC MEDS VERIFIED W/PT OR RE Feb 23, 2019 Trans Care Mgmt 14 Day Disc October 09, 2021 [facility] MED/CURRENT MED MERGE August 29, 2020 DOC MEDS VERIFIED W/PT OR RE November 12, 2017 COLORECTAL CA SCREEN DOC REV October 17, 2020 DOC MEDS VERIFIED W/PT OR RE September 08, 2018 DOC MEDS VERIFIED W/PT OR RE Mar 21, 2017 DOC MEDS VERIFIED W/PT OR RE Jul 02, 2017 TOBACCO NON-USER Mar 19, 2022 TOBACCO NON-USER Dec 13, 2019 Pt scrn tbco id as non user October 17, 2020 BMI<30 AND >=22 CALC & DOCU Jan 15, 2017 TOBACCO NON-USER Jun 04, 2017 FLU IMMUNIZE ORDER/ADMIN Jun 06, 2016 SCREEN MAMMO DOC REV Jun 06, 2016 TOBACCO NON-USER Jan 15, 2017 BMI<30 AND >=22 CALC & DOCU Feb 19, 2019 BMI<30 AND >=22 CALC & DOCU Dec 13, 2019 Trans Care Mgmt 14 Day Disc July 18, 2020 -ELECTROCARDIOGRAM, COMPLETE July 13, 2018 Trans Care Mgmt 14 Day Disc August 01, 2020 BMI<30 AND >=22 CALC & DOCU Mar 19, 2022 FLU IMM NO ORD/ADMIN DOC ABDULAZIZ Jun 04, 2017 COLORECTAL CA SCREEN DOC REV Jun 06, 2016 BMI<30 AND >=22 CALC & DOCU Jun 04, 2017 DOC MEDS VERIFIED W/PT OR RE Jun 06, 2016 COLORECTAL CA SCREEN DOC REV Jan 15, 2017 DOC MEDS VERIFIED W/PT OR RE Apr 15, 2018 COLORECTAL CA SCREEN DOC REV Jun 04, 2017 RESULTS Name Result Date Reference Range US thyroid 2022-09-18 Complete Blood Count Auto Diff 2022-08-26 White Blood Count 4.8 4.8-10.8 Red Blood Count 4.37 4.20-5.50 Hemoglobin 13.4 12.0-16.0 Hematocrit 40.9 37.0-47.0 Mean Corpuscular Volume 93.6 80.0 -98.0 Mean Corpuscular Hemoglobin 30.7 27.0-33.0 Mean Corpuscular HGB Conc 32.8 31 .0-35.0 Red Cell Distribution Width 13.3 11.0-16.0 Platelet Count 328 160-400 Mean Platelet Volume 9.7 9.4-12. 3 Neutrophils Percent Auto 52.4 45- 73 Imm Gran Pct Auto 0.2 0.0-0.4 Lymphocytes Percent Auto 35.1 20- 40 Monocytes Percent Auto 9.4 2-11 Eosinophils Percent Auto 2.5 0-4 Basophils Percent Auto 0.4 0-2 NRBC Pct Auto 0.0 0.0-0.2 Neutrophils Absolute Auto 2.5 2. 0-8.3 Imm Gran Abs Auto 0.01 0.00-0.03 Lymphocytes Absolute Auto 1.7 1. 2-4.9 Monocytes Absolute Auto 0.5 0.1- 1.2 Eosinophils Absolute Auto 0.1 0. 0-0.4 Basophils Absolute Auto 0.0 0.0- 0.2 NRBC Abs Auto 0.000 0.0-0.012 Comprehensive Met. Panel 2022-08-26 Sodium 140 135-145 Potassium 4.5 3.3-5.1 Chloride 107 96-108 Carbon Dioxide 25 22-29 Anion Gap 13 12-20 Blood Urea Nitrogen 16 9-16 Creatinine 0.74 0.5-1.4 Estimated Glomerular Filt Rate >60 Glucose Random 80 60-115 Calcium 9.0 8.4-10.2 Bilirubin Total 0.8 0.0-1.0 Aspartate Amino Transferase 20 5-31 Alanine Aminotransferase 11 0-3 1 Total Protein 6.5 6.5-8.0 Albumin Level 4.1 3.5-5.0 Alkaline Phosphatase 74 39-117 Ferritin 2022-08-26 Ferritin 61 10-250 Lipid Panel 2022-08-26 Triglycerides 160 Cholesterol 258 LDL Cholesterol Calculated 160 HDL Cholesterol 66 Vitamin B12 and Folate 2022-08-26 Vitamin B12 495 200-900 Folate 13.4 >or = 4.0 TSH reflex Free T4 2022-08-26 TSH reflex Free T4 0.93 0.32-4.0 Complete Blood Count Auto Diff 2022-04-10 White Blood Count 4.9 4.8-10.8 Red Blood Count 3.96 4.20-5.50 Hemoglobin 11.9 12.0-16.0 Hematocrit 37.0 37.0-47.0 Mean Corpuscular Volume 93.4 80.0 -98.0 Mean Corpuscular Hemoglobin 30.1 27.0-33.0 Mean Corpuscular HGB Conc 32.2 31 .0-35.0 Red Cell Distribution Width 13.3 11.0-16.0 Platelet Count 302 160-400 Mean Platelet Volume 9.7 9.4-12. 3 Neutrophils Percent Auto 47.3 45- 73 Imm Gran Pct Auto 0.2 0.0-0.4 Lymphocytes Percent Auto 39.2 20- 40 Monocytes Percent Auto 9.2 2-11 Eosinophils Percent Auto 3.5 0-4 Basophils Percent Auto 0.6 0-2 NRBC Pct Auto 0.0 0.0-0.2 Neutrophils Absolute Auto 2.3 2. 0-8.3 Imm Gran Abs Auto 0.01 0.00-0.03 Lymphocytes Absolute Auto 1.9 1. 2-4.9 Monocytes Absolute Auto 0.5 0.1- 1.2 Eosinophils Absolute Auto 0.2 0. 0-0.4 Basophils Absolute Auto 0.0 0.0- 0.2 NRBC Abs Auto 0.000 0.0-0.012 Comprehensive [place]. Panel Fast 2022-04-10 Sodium 143 135-145 Potassium 3.8 3.3-5.1 Chloride 107 96-108 Carbon Dioxide 31 22-29 Anion Gap 9 12-20 Blood Urea Nitrogen 15 9-16 Creatinine 0.71 0.5-1.4 Estimated Glomerular Filt Rate >60 Glucose Fasting 75 60-99 Calcium 9.1 8.4-10.2 Bilirubin Total 0.9 0.0-1.0 Aspartate Amino Transferase 24 5-31 Alanine Aminotransferase 15 0-3 1 Total Protein 6.7 6.5-8.0 Albumin Level 4.2 3.5-5.0 Alkaline Phosphatase 75 39-117 Lipid Panel 2022-04-10 Triglycerides 110 Cholesterol 164 LDL Cholesterol Calculated 76 HDL Cholesterol 66 Vitamin D 25-OH Total 2022-04-10 Vitamin D 25-OH Total 29.9 >30 Thyroid Stimulating Hormone 2022-04-10 Thyroid Stimulating Hormone 0.77 0.32-4.0 Complete Blood Count Auto Diff 2021-10-11 White Blood Count 5.8 4.8-10.8 Red Blood Count 4.26 4.20-5.50 Hemoglobin 13.3 12.0-16.0 Hematocrit 40.8 37.0-47.0 Mean Corpuscular Volume 95.8 80.0 -98.0 Mean Corpuscular Hemoglobin 31.2 27.0-33.0 Mean Corpuscular HGB Conc 32.6 31 .0-35.0 Red Cell Distribution Width 13.0 11.0-16.0 Platelet Count 339 160-400 Mean Platelet Volume 9.3 9.4-12. 3 Neutrophils Percent Auto 63.8 45- 73 Imm Gran Pct Auto 0.3 0.0-0.4 Lymphocytes Percent Auto 28.5 20- 40 Monocytes Percent Auto 6.9 2-11 Eosinophils Percent Auto 0.3 0-4 Basophils Percent Auto 0.2 0-2 NRBC Pct Auto 0.0 0.0-0.2 Neutrophils Absolute Auto 3.7 2. 0-8.3 Imm Gran Abs Auto 0.02 0.00-0.03 Lymphocytes Absolute Auto 1.7 1. 2-4.9 Monocytes Absolute Auto 0.4 0.1- 1.2 Eosinophils Absolute Auto 0.0 0. 0-0.4 Basophils Absolute Auto 0.0 0.0- 0.2 NRBC Abs Auto 0.000 0.0-0.012 Prothrombin Time INR 2021-10-11 Prothrombin Time 13.3 9.9-13.0 INTERNATIONAL NORM RATIO 1.2 0.9 -1.1 Comprehensive Met. Panel 2021-10-11 Sodium 142 135-145 Potassium 3.6 3.3-5.1 Chloride 107 96-108 Carbon Dioxide 25 22-29 Anion Gap 14 12-20 Blood Urea Nitrogen 13 9-16 Creatinine 0.79 0.5-1.4 Creatinine Clr Calc Pharmacy 76.2 Estimated Glomerular Filt Rate >60 Glucose Random 82 60-115 Calcium 9.4 8.4-10.2 Bilirubin Total 1.0 0.0-1.0 Aspartate Amino Transferase 23 5-31 Alanine Aminotransferase 18 0-3 1 Total Protein 7.3 6.5-8.0 Albumin Level 4.4 3.5-5.0 Alkaline Phosphatase 58 39-117 Magnesium 2021-10-11 Magnesium 2.4 1.6-2.6 Troponin-I High Sensitivity 2021-10-11 Troponin-I High Sensitivity < 3.5 <3.5-17.0 TSH reflex Free T4 2021-10-11 TSH reflex Free T4 0.90 0.32-4.0 Drug Screen Urine 2021-10-11 Opiate Screen Urine Not Detected Not Dete ct Barbiturates, Urine Not Detected Not Dete ct Phencyclidine Screen Urine Not Detected N ot Detect Amphetamine Screen Urine Not Detected Not Detect Benzodiazepines Screen Urine Not Detected Not Detect Cocaine Screen Urine Not Detected Not Det ect Cannabinoid Screen Urine Not Detected Not Detect Fentanyl, urine Not Detected Not Detect Ethanol 2021-10-11 Ethanol < 10 UA CC w/rflx Micro + Cult 2021-10-11 Color Urine YELLOW Appearance Urine CLEAR PH 7.5 5.0-8.0 Glucose Urine UA NEG NEG Urine Blood NEG NEG Specific [place] - Urine 1.015 1.0 05-1.025 Urine Protein NEG NEG-TRACE Urine Ketones 15 NEG Nitrite Urine NEG NEG Leukocyte Esterase Urine NEG NEG Erythrocyte Sedimentation Rate 2021-05-07 Erythrocyte Sedimentation Rate 11 0-20 Vitamin B12 2021-05-07 Vitamin B12 411 200-900 Thyroid Stimulating Hormone 2021-05-07 Thyroid Stimulating Hormone 0.80 0.32-4.0 Homocysteine 2021-05-07 Homocysteine 8.6 <10.4 Methylmalonic Acid 2021-05-07 Methylmalonic Acid 106 87-318 SURINDER Reflex Titer and Pattern 2021-05-07 Anti Nuclear Antibody Screen POSITIVE NEGATIVE Anti Nuclear Antibody Titer 1:40 Anti Nuclear Antibody Pattern Nuclear, Homogeneous SURINDER Titer 2 TNP SURINDER Pattern 2 TNP SURINDER Titer 3 TNP SURINDER Pattern 3 TNP Lyme IgG/IgM w/reflex to WB 2021-05-07 Lyme Abs Screen <0.90 Lyme Blot TNP US thyroid 2020-09-05 Free T4 (Free Thyroxine) 2020-07-26 Free T4 (Free Thyroxine) 0.94 0.7 1-1.85 Thyroid Stimulating Hormone 2020-07-26 Thyroid Stimulating Hormone 0.55 0.32-4.0 Triiodothyronine T3 Free 2020-07-26 Triiodothyronine T3 Free 2.8 2.3 -4.2 FREE T3 (FT3) 2019-11-02 FREE T3 3.0 2.3-4.2 FREE T4 (FT4) 2019-11-02 FREE T4 0.90 0.71-1.85 TSH (THYROID STIMULATING HORMONE) 2019-11-02 TSH 0.71 0.32-4.0 TSH (THYROID STIMULATING HORMONE) 2019-09-13 TSH 0.26 0.32-4.0 CBC w DIFF 2019-09-13 WBC 5.7 4.8-10.8 ABSOLUTE NEUTROPHIL COUNT 3.2 2. 2-7.9 RBC 4.12 4.20-5.50 HEMOGLOBIN 12.9 12.0-16.0 HEMATOCRIT 38.7 37-47 MCV 93.8 80-98 MCH 31.2 27.0-33.0 MCHC 33.3 31.0-35.0 PLATELET COUNT 320 160-400 RDW 13.3 11.0-16.0 NEUTROPHILS 55.6 45-73 LYMPHOCYTES 32.6 20-40 MONOCYTES 9.0 2-11 EOSINOPHILS 2.0 0-4 BASOPHILS 0.8 0-2 PROFILE, RANDOM 2019-09-13 NA 137 135-145 K 4.3 3.3-5.1 CL 103 96-108 CO2 27 22-29 ANION GAP 11 12-20 GLUCOSE,RANDOM 90 60-115 BUN 13 9-16 CREATININE 0.80 0.5-1.4 ESTIMATED GFR >60 PROTEIN, TOTAL 7.0 6.5-8.0 ALBUMIN 4.3 3.5-5.0 BILIRUBIN, TOTAL 1.2 0.0-1.0 CALCIUM 8.8 8.4-10.2 ALK. PHOS. 76 39-117 GOT 20 5-31 GPT 16 0-31 CHEM 7 PROFILE 2019-06-30 NA 140 135-145 K 4.2 3.3-5.1 CL 104 96-108 CO2 27 22-29 ANION GAP 13 12-20 GLUCOSE,RANDOM 97 60-115 BUN 11 9-16 CREATININE 0.72 0.5-1.4 ESTIMATED GFR >60 XR GIAC 2019-06-23 AMYLASE 2019-06-22 AMYLASE 49 28-100 CBC w DIFF 2019-06-22 WBC 6.6 4.8-10.8 ABSOLUTE NEUTROPHIL COUNT 3.8 2. 2-7.9 RBC 4.42 4.20-5.50 HEMOGLOBIN 13.6 12.0-16.0 HEMATOCRIT 41.9 37-47 MCV 94.9 80-98 MCH 30.8 27.0-33.0 MCHC 32.5 31.0-35.0 PLATELET COUNT 343 160-400 RDW 12.4 11.0-16.0 NEUTROPHILS 57.4 45-73 LYMPHOCYTES 32.7 20-40 MONOCYTES 7.7 2-11 EOSINOPHILS 1.6 0-4 BASOPHILS 0.6 0-2 LIPASE 2019-06-22 LIPASE 11 8-78 PROFILE, FASTING 2019-06-22 NA 141 135-145 K 4.8 3.3-5.1 CL 104 96-108 CO2 27 22-29 ANION GAP 15 12-20 FASTING BLOOD SUGAR 101 60-99 BUN 9 9-16 CREATININE 0.74 0.5-1.4 ESTIMATED GFR >60 PROTEIN, TOTAL 7.1 6.5-8.0 ALBUMIN 4.5 3.5-5.0 BILIRUBIN, TOTAL 1.0 0.0-1.0 CALCIUM 9.7 8.4-10.2 ALK. PHOS. 97 39-117 GOT 18 5-31 GPT 12 0-31 Colonoscopy HEMOGLOBIN A1C (GLYCOHEMOGLOBIN) 2019-03-04 HEMOGLOBIN A1C % (HH) 5.2 ESTIMATED AVG GLUCOSE 103 LIPOPROTEIN FRACTIONATION (LIPID PANEL) 2019-03-04 CHOLESTEROL 162 TRIGLYCERIDE 77 HDL 74 LDL CALCULATED 73 B12 2019-03-04 B12 325 200-900 CBC w DIFF 2019-03-04 WBC 9.2 4.8-10.8 ABSOLUTE NEUTROPHIL COUNT 5.1 2. 2-7.9 RBC 4.10 4.20-5.50 HEMOGLOBIN 12.9 12.0-16.0 HEMATOCRIT 39.7 37-47 MCV 96.8 80-98 MCH 31.5 27.0-33.0 MCHC 32.6 31.0-35.0 PLATELET COUNT 333 160-400 RDW 12.3 11.0-16.0 NEUTROPHILS 54.9 45-73 LYMPHOCYTES 36.9 20-40 MONOCYTES 6.2 2-11 EOSINOPHILS 1.4 0-4 BASOPHILS 0.6 0-2 FERRITIN 2019-03-04 FERRITIN 77 10-250 IMMUNOFIXATION PANEL, SERUM (IEP) 2019-03-04 IgG 684 302-2129 IgA 274 47-310 IgM 121 50-300 IMFIXS INTERP SEE NOTE () PROFILE, FASTING 2019-03-04 NA 141 135-145 K 4.0 3.3-5.1 CL 103 96-108 CO2 29 22-29 ANION GAP 13 12-20 FASTING BLOOD SUGAR 79 60-99 BUN 15 9-16 CREATININE 0.78 0.5-1.4 ESTIMATED GFR >60 PROTEIN, TOTAL 6.4 6.5-8.0 ALBUMIN 4.1 3.5-5.0 BILIRUBIN, TOTAL 0.6 0.0-1.0 CALCIUM 9.0 8.4-10.2 ALK. PHOS. 56 39-117 GOT 15 5-31 GPT 15 0-31 PROTEIN ELECTROPHORESIS, SERUM 2019-03-04 PROT ELEC - TOTAL PROTEIN 6.3 6. 1-8.1 PROT ELEC - ALBUMIN 4.0 3.8-4.8 PROT ELEC - ALPHA1 0.2 0.2-0.3 PROT ELEC - ALPHA 2 0.6 0.5-0.9 PROT ELEC - BETA-1 0.4 0.4-0.6 PROT ELEC - GAMMA 0.8 0.8-1.7 PES-ABN PROTEIN BAND 1 SEE NOTE () PES-ABN PROTEIN BAND 2 Test not performed () PES-ABN PROTEIN BAND 3 Test not performed () PROT ELEC - INTERPRETATION SEE NOTE ( ) TSH (THYROID STIMULATING HORMONE) 2019-03-04 TSH 1.31 0.32-4.0 LIPOPROTEIN FRACTIONATION (LIPID PANEL) 2018-10-28 CHOLESTEROL 153 TRIGLYCERIDE 92 HDL 57 LDL CALCULATED 78 TSH (THYROID STIMULATING HORMONE) 2018-10-28 TSH 0.19 0.32-4.0 BRAIN NATRIURETIC PEPTIDE (BNP) 2018-08-03 8 BRAIN NATRIURETIC PEPTIDE 13 < 100 LIPOPROTEIN FRACTIONATION (LIPID PANEL) 2018-08-12 CHOLESTEROL 235 TRIGLYCERIDE 162 HDL 54 LDL CALCULATED 149 CBC w DIFF 2018-08-12 WBC 5.4 4.8-10.8 ABSOLUTE NEUTROPHIL COUNT 2.8 2. 2-7.9 RBC 4.16 4.20-5.50 HEMOGLOBIN 13.1 12.0-16.0 HEMATOCRIT 37.5 37-47 MCV 90.1 80-98 MCH 31.5 27.0-33.0 MCHC 35.0 31.0-35.0 PLATELET COUNT 288 160-400 RDW 11.9 11.0-16.0 NEUTROPHILS 52.3 45-73 LYMPHOCYTES 37.0 20-40 MONOCYTES 8.2 2-11 EOSINOPHILS 1.7 0-4 BASOPHILS 0.7 0-2 PROFILE, FASTING 2018-08-12 NA 137 135-145 K 4.2 3.3-5.1 CL 105 96-108 CO2 22 22-29 ANION GAP 14 12-20 FASTING BLOOD SUGAR 88 60-99 BUN 12 9-16 CREATININE 0.71 0.5-1.4 ESTIMATED GFR >60 PROTEIN, TOTAL 6.8 6.5-8.0 ALBUMIN 4.2 3.5-5.0 BILIRUBIN, TOTAL 0.6 0.0-1.0 CALCIUM 9.2 8.4-10.2 ALK. PHOS. 66 39-117 GOT 18 5-31 GPT 14 0-31 TSH (THYROID STIMULATING HORMONE) 2018-08-12 TSH 0.25 0.32-4.0 HEMOGLOBIN A1C (GLYCOHEMOGLOBIN) 2018-06-15 HEMOGLOBIN A1C % (HH) 5.0 ESTIMATED AVG GLUCOSE 97 BASIC METABOLIC PROFILE RANDOM 2018-06-15 NA 139 135-145 K 4.4 3.3-5.1 CL 107 96-108 CO2 24 22-29 ANION GAP 12 12-20 GLUCOSE,RANDOM 94 60-115 BUN 12 9-16 CREATININE 0.81 0.5-1.4 ESTIMATED GFR >60 ESTIMATED CrCl 71.4 CALCIUM 9.6 8.4-10.2 BRAIN NATRIURETIC PEPTIDE (BNP) 2018-06-05 1 BRAIN NATRIURETIC PEPTIDE 14 < 100 CBC w DIFF 2018-06-15 WBC 6.1 4.8-10.8 ABSOLUTE NEUTROPHIL COUNT 3.1 2. 2-7.9 RBC 3.97 4.20-5.50 HEMOGLOBIN 12.8 12.0-16.0 HEMATOCRIT 37.3 37-47 MCV 93.8 80-98 MCH 32.2 27.0-33.0 MCHC 34.4 31.0-35.0 PLATELET COUNT 296 160-400 RDW 12.3 11.0-16.0 NEUTROPHILS 51.5 45-73 LYMPHOCYTES 31.9 20-40 MONOCYTES 12.1 2-11 EOSINOPHILS 3.4 0-4 BASOPHILS 1.1 0-2 LIPOPROTEIN FRACTIONATION (LIPID PANEL) 2018-06-09 CHOLESTEROL 232 TRIGLYCERIDE 183 HDL 61 LDL CALCULATED 135 B12 2018-06-09 B12 292 200-900 CBC w DIFF 2018-06-09 WBC 5.3 4.8-10.8 ABSOLUTE NEUTROPHIL COUNT 2.5 2. 2-7.9 RBC 4.10 4.20-5.50 HEMOGLOBIN 12.6 12.0-16.0 HEMATOCRIT 38.9 37-47 MCV 94.9 80-98 MCH 30.8 27.0-33.0 MCHC 32.5 31.0-35.0 PLATELET COUNT 325 160-400 RDW 12.8 11.0-16.0 NEUTROPHILS 47.0 45-73 LYMPHOCYTES 38.2 20-40 MONOCYTES 10.5 2-11 EOSINOPHILS 3.3 0-4 BASOPHILS 1.0 0-2 FOLATE 2018-06-09 FOLATE 18.5 >OR = 4.0 FREE T4 (FT4) 2018-06-09 FREE T4 0.91 0.71-1.85 PROFILE, FASTING 2018-06-09 NA 139 135-145 K 4.3 3.3-5.1 CL 106 96-108 CO2 27 22-29 ANION GAP 10 12-20 FASTING BLOOD SUGAR 84 60-99 BUN 14 9-16 CREATININE 0.79 0.5-1.4 ESTIMATED GFR >60 ESTIMATED CrCl 73.2 PROTEIN, TOTAL 6.4 6.5-8.0 ALBUMIN 4.0 3.5-5.0 BILIRUBIN, TOTAL 0.8 0.0-1.0 CALCIUM 9.4 8.4-10.2 ALK. PHOS. 56 39-117 GOT 20 5-31 GPT 13 0-31 CBC w DIFF 2018-06-08 WBC 6.3 4.8-10.8 ABSOLUTE NEUTROPHIL COUNT 3.3 2. 2-7.9 RBC 3.97 4.20-5.50 HEMOGLOBIN 12.8 12.0-16.0 HEMATOCRIT 37.1 37-47 MCV 93.4 80-98 MCH 32.3 27.0-33.0 MCHC 34.6 31.0-35.0 PLATELET COUNT 302 160-400 RDW 12.4 11.0-16.0 NEUTROPHILS 52.2 45-73 LYMPHOCYTES 32.9 20-40 MONOCYTES 10.7 2-11 EOSINOPHILS 2.7 0-4 BASOPHILS 1.4 0-2 DRUGS OF ABUSE ([place]) 2018-06-08 AMPHETAMINES, URINE NOT DETECTED NOT DETE CTD BARITURATES, URINE NOT DETECTED NOT DETEC TD BENZODIAZEPINES, URINE NOT DETECTED NOT D ETECTD COCAINE, URINE NOT DETECTED NOT DETECTD OPIATES, URINE NOT DETECTED NOT DETECTD PCP, URINE NOT DETECTED NOT DETECTD CANNABINOIDS, URINE (THC) NOT DETECTED NO T DETECTD PROFILE, RANDOM 2018-06-08 NA 137 135-145 K 3.8 3.3-5.1 CL 107 96-108 CO2 23 22-29 ANION GAP 11 12-20 GLUCOSE,RANDOM 129 60-115 BUN 14 9-16 CREATININE 0.78 0.5-1.4 ESTIMATED GFR >60 ESTIMATED CrCl 74.2 PROTEIN, TOTAL 6.4 6.5-8.0 ALBUMIN 4.0 3.5-5.0 BILIRUBIN, TOTAL 0.4 0.0-1.0 CALCIUM 8.9 8.4-10.2 ALK. PHOS. 56 39-117 GOT 19 5-31 GPT 12 0-31 BUN 2018-05-18 BUN 13 9-16 CREATININE 2018-05-18 CREATININE 0.77 0.5-1.4 ESTIMATED GFR >60 ELECTROLYTES 2018-05-18 NA 140 135-145 K 4.4 3.3-5.1 CL 103 96-108 CO2 28 22-29 ANION GAP 13 12-20 US THYROID 2018-04-08 CHEST 2 VIEWS [id number] 2018-03-13 CBC w DIFF 2018-03-10 WBC 4.7 4.8-10.8 ABSOLUTE NEUTROPHIL COUNT 2.7 2. 2-7.9 RBC 4.23 4.20-5.50 HEMOGLOBIN 13.8 12.0-16.0 HEMATOCRIT 39.6 37-47 MCV 93.6 80-98 MCH 32.6 27.0-33.0 MCHC 34.8 31.0-35.0 PLATELET COUNT 279 160-400 RDW 12.4 11.0-16.0 NEUTROPHILS 57.1 45-73 LYMPHOCYTES 31.5 20-40 MONOCYTES 8.4 2-11 EOSINOPHILS 2.3 0-4 BASOPHILS 0.7 0-2 CRP 2018-03-10 CRP 0.21 < OR = 0.50 PROFILE, RANDOM 2018-03-10 NA 137 135-145 K 4.3 3.3-5.1 CL 106 96-108 CO2 22 22-29 ANION GAP 13 12-20 GLUCOSE,RANDOM 99 60-115 BUN 12 9-16 CREATININE 0.75 0.5-1.4 ESTIMATED GFR >60 PROTEIN, TOTAL 6.7 6.5-8.0 ALBUMIN 4.3 3.5-5.0 BILIRUBIN, TOTAL 0.4 0.0-1.0 CALCIUM 9.4 8.4-10.2 ALK. PHOS. 52 39-117 GOT 17 5-31 GPT 13 0-31 SED RATE (ESR) 2018-03-10 SED RATE 9 0-20 TSH (THYROID STIMULATING HORMONE) 2018-03-10 TSH 0.62 0.32-4.0 DORSAL SPINE SWIMMERS [id number] 2017-09-10 XR CERVICAL SPINE 4+ VIEWS 2017-09-10 BASIC METABOLIC PROFILE RANDOM 2017-09-03 NA 140 135-145 K 4.6 3.3-5.1 CL 107 96-108 CO2 22 22-29 ANION GAP 16 12-20 GLUCOSE,RANDOM 75 60-115 BUN 8 9-16 CREATININE 0.70 0.5-1.4 ESTIMATED GFR >60 ESTIMATED CrCl 82.2 CALCIUM 9.3 8.4-10.2 CBC w/o DIFF 2017-09-03 WBC 7.7 4.8-10.8 RBC 4.25 4.20-5.50 HEMOGLOBIN 13.3 12.0-16.0 HEMATOCRIT 39.6 37-47 MCV 93.4 80-98 MCH 31.3 27.0-33.0 MCHC 33.5 31.0-35.0 PLATELET COUNT 282 160-400 RDW 12.1 11.0-16.0 DRUGS OF ABUSE ([place]) 2017-09-03 AMPHETAMINES, URINE NOT DETECTED NOT DETE CTD BARITURATES, URINE NOT DETECTED NOT DETEC TD BENZODIAZEPINES, URINE NOT DETECTED NOT D ETECTD COCAINE, URINE NOT DETECTED NOT DETECTD OPIATES, URINE NOT DETECTED NOT DETECTD PCP, URINE NOT DETECTED NOT DETECTD CANNABINOIDS, URINE (THC) NOT DETECTED NO T DETECTD IRON + IBC (FE) 2017-09-03 IRON 28 30-160 IBC 315 228-428 % SATURATION 9 15-50 MAGNESIUM 2017-09-03 MAGNESIUM 2.2 1.6-2.6 METANEPHRINE,FRAC RANDOM URINE 2017-09-03 METANEPHRINE FRAC RANDOM URINE 156 21-153 NORMETANEPHRINE RANDOM URINE 506 108-524 METANEPHRINES, TOTAL RU 662 149- 603 CREATININE, RANDOM URINE 10.0 20- 320 PHOSPHORUS 2017-09-03 PHOSPHORUS 2.2 2.7-4.5 URINALYSIS - CLEAN CATCH (UA) 2017-09-03 COLOR YELLOW APPEARANCE,(UA) CLEAR SPECIFIC GRAVITY <= 1.005 1.005-1.025 LEUKOCYTES NEG NEG NITRITE NEG NEG PROTEIN,QUALITATIVE NEG NEG - TR TOD PH 5.5 5.0-8.0 URINE BLOOD NEG NEG KETONES NEG NEG GLUCOSE NEG NEG TSH REFLEX FREE T4 2017-09-03 TSH 0.33 0.32-4.0 HOLD GREEN 2017-08-29 HOLD GREEN SEE NOTE CBC w DIFF 2017-08-29 WBC 5.6 4.8-10.8 ABSOLUTE NEUTROPHIL COUNT 3.3 2. 2-7.9 RBC 4.39 4.20-5.50 HEMOGLOBIN 13.9 12.0-16.0 HEMATOCRIT 40.7 37-47 MCV 92.6 80-98 MCH 31.6 27.0-33.0 MCHC 34.1 31.0-35.0 PLATELET COUNT 316 160-400 RDW 12.1 11.0-16.0 NEUTROPHILS 58.5 45-73 LYMPHOCYTES 30.6 20-40 MONOCYTES 9.1 2-11 EOSINOPHILS 1.0 0-4 BASOPHILS 0.7 0-2 CHEM 7 PROFILE 2017-08-29 NA 141 135-145 K 3.8 3.3-5.1 CL 107 96-108 CO2 24 22-29 ANION GAP 14 12-20 GLUCOSE,RANDOM 88 60-115 BUN 14 9-16 CREATININE 0.80 0.5-1.4 ESTIMATED GFR >60 ESTIMATED CrCl 72.3 D-DIMER 2017-08-29 D-DIMER < 200 HOLD GREEN 2017-08-29 HOLD GREEN SEE NOTE MAGNESIUM 2017-08-29 MAGNESIUM 2.0 1.6-2.6 PROTHROMBIN TIME (PT, INR) 2017-08-29 INTERNATIONAL NORM. RATIO 0.9 SE E NOTE PROTHROMBIN TIME 10.7 10.2-12.9 TROPONIN-I 2017-08-29 TROPONIN-I < 0.03 < 0.03 NUC BONE VASCULAR FLOW ONLY 2017-08-29 XR CHEST 1 VIEW 2017-08-29 CBC w DIFF 2017-08-14 WBC 5.1 4.8-10.8 ABSOLUTE NEUTROPHIL COUNT 3.3 2. 2-7.9 RBC 4.35 4.20-5.50 HEMOGLOBIN 13.7 12.0-16.0 HEMATOCRIT 40.4 37-47 MCV 92.9 80-98 MCH 31.5 27.0-33.0 MCHC 33.9 31.0-35.0 PLATELET COUNT 309 160-400 RDW 12.3 11.0-16.0 NEUTROPHILS 65.0 45-73 LYMPHOCYTES 23.7 20-40 MONOCYTES 9.0 2-11 EOSINOPHILS 1.2 0-4 BASOPHILS 1.1 0-2 CPK 2017-08-14 CPK 85 26-140 IRON + IBC (FE) 2017-08-14 IRON 73 30-160 IBC 343 228-428 % SATURATION 21 15-50 TSH (THYROID STIMULATING HORMONE) 2017-08-14 TSH 0.77 0.32-4.0 CBC w DIFF 2017-06-04 WBC 5.9 4.8-10.8 ABSOLUTE NEUTROPHIL COUNT 3.9 2. 2-7.9 RBC 4.12 4.20-5.50 HEMOGLOBIN 13.5 12.0-16.0 HEMATOCRIT 40.4 37-47 MCV 97.9 80-98 MCH 32.8 27.0-33.0 MCHC 33.5 31.0-35.0 PLATELET COUNT 293 160-400 RDW 12.4 11.0-16.0 NEUTROPHILS 65.9 45-73 LYMPHOCYTES 25.4 20-40 MONOCYTES 6.6 2-11 EOSINOPHILS 1.1 0-4 BASOPHILS 0.9 0-2 PROFILE, RANDOM 2017-06-04 NA 140 135-145 K 4.8 3.3-5.1 CL 106 96-108 CO2 28 22-29 ANION GAP 11 12-20 GLUCOSE,RANDOM 82 60-115 BUN 9 9-16 CREATININE 0.80 0.5-1.4 ESTIMATED GFR >60 PROTEIN, TOTAL 7.1 6.5-8.0 ALBUMIN 4.3 3.5-5.0 BILIRUBIN, TOTAL 0.7 0.0-1.0 CALCIUM 9.4 8.4-10.2 ALK. PHOS. 49 39-117 GOT 24 5-31 GPT 18 0-31 TSH (THYROID STIMULATING HORMONE) 2017-06-04 TSH 0.63 0.32-4.0 SURGICAL 2017-04-10 SURGICAL XR SHOULDER LT 2 VIEWS 2017-01-19 CBC w DIFF 2016-11-15 WBC 6.8 4.8-10.8 ABSOLUTE NEUTROPHIL COUNT 4.3 2. 2-7.9 RBC 4.23 4.20-5.50 HEMOGLOBIN 13.5 12.0-16.0 HEMATOCRIT 43.1 37-47 MCV 101.9 80-98 MCH 32.0 27.0-33.0 MCHC 31.4 31.0-35.0 PLATELET COUNT 279 160-400 RDW 12.1 11.0-16.0 NEUTROPHILS 63.4 45-73 LYMPHOCYTES 26.3 20-40 MONOCYTES 8.4 2-11 EOSINOPHILS 1.0 0-4 BASOPHILS 0.8 0-2 PROFILE, RANDOM 2016-11-15 NA 138 135-145 K 3.9 3.3-5.1 CL 105 96-108 CO2 28 22-29 ANION GAP 9 12-20 GLUCOSE,RANDOM 84 60-115 BUN 15 9-16 CREATININE 0.82 0.5-1.4 ESTIMATED GFR >60 PROTEIN, TOTAL 7.1 6.5-8.0 ALBUMIN 4.3 3.5-5.0 BILIRUBIN, TOTAL 0.5 0.0-1.0 CALCIUM 9.4 8.4-10.2 ALK. PHOS. 53 39-117 GOT 26 5-31 GPT 17 0-31 XR HAND RT 2016-09-17 XR FINGER LT 2016-06-06 CBC w DIFF 2015-10-20 WBC 7.2 4.8-10.8 ABSOLUTE NEUTROPHIL COUNT 4.9 2. 2-7.9 RBC 4.13 4.20-5.50 HEMOGLOBIN 13.7 12.0-16.0 HEMATOCRIT 41.0 37-47 MCV 99.3 80-98 MCH 33.3 27.0-33.0 MCHC 33.5 31.0-35.0 PLATELET COUNT 315 160-400 RDW 13.0 11.0-16.0 NEUTROPHILS 67.6 45-73 LYMPHOCYTES 24.0 20-40 MONOCYTES 7.2 2-11 EOSINOPHILS 0.6 0-4 BASOPHILS 0.7 0-2 CRP 2015-10-20 CRP < 0.30 < OR = 0.50 PROFILE, RANDOM 2015-10-20 NA 140 135-145 K 4.2 3.3-5.1 CL 105 96-108 CO2 26 22-29 ANION GAP 13 12-20 GLUCOSE,RANDOM 76 60-115 BUN 9 9-16 CREATININE 0.79 0.5-1.4 ESTIMATED GFR >60 PROTEIN, TOTAL 6.9 6.5-8.0 ALBUMIN 4.6 3.5-5.0 BILIRUBIN, TOTAL 0.7 0.0-1.0 CALCIUM 9.4 8.4-10.2 ALK. PHOS. 68 39-117 GOT 18 5-31 GPT 9 0-31 SED RATE (ESR) 2015-10-20 SED RATE 6 0-20 TSH (THYROID STIMULATING HORMONE) 2015-10-20 TSH 0.88 0.32-4.0 MAMMOGRAM, SCREENING FOLLICLE STIMULATING HORMONE (FSH) 2015-04-27 FOLLICLE STIMULATING HORMONE 32.0 TESTOSTERONE, FREE AND TOTAL 2015-04-27 TESTOSTERONE, TOTAL 15 2-45 TESTOSTERONE, FREE 1.5 0.1-6.4 LIPOPROTEIN FRACTIONATION (LIPID PANEL) 2015-04-22 CHOLESTEROL 217 TRIGLYCERIDE 111 HDL 65 LDL 130 CPK & MB 2015-04-22 CPK 55 26-140 CPK-MB 0.7 < 0.1-3.7 TROPONIN-I 2015-04-22 TROPONIN-I < 0.03 < 0.03 TROPONIN-I 2015-04-21 TROPONIN-I < 0.03 < 0.03 CBC w DIFF 2015-04-21 WBC 5.3 4.8-10.8 ABSOLUTE NEUTROPHIL COUNT 2.9 2. 2-7.9 RBC 4.07 4.20-5.50 HEMOGLOBIN 13.2 12.0-16.0 HEMATOCRIT 39.6 37-47 MCV 97.3 80-98 MCH 32.5 27.0-33.0 MCHC 33.4 31.0-35.0 PLATELET COUNT 292 160-400 RDW 12.8 11.0-16.0 NEUTROPHILS 55.6 45-73 LYMPHOCYTES 34.6 20-40 MONOCYTES 7.5 2-11 EOSINOPHILS 1.7 0-4 BASOPHILS 0.5 0-2 CHEM 7 PROFILE 2015-04-21 NA 140 135-145 K 4.4 3.3-5.1 CL 107 96-108 CO2 26 22-29 ANION GAP 11 12-20 GLUCOSE,RANDOM 89 60-115 BUN 14 9-16 CREATININE 0.8 0.5-1.4 ESTIMATED GFR >60 ESTIMATED CrCl 71.3 CPK & MB 2015-04-21 CPK 70 26-140 CPK-MB 0.8 < 0.1-3.7 D-DIMER 2015-04-21 D-DIMER < 200 PARTIAL THROMBOPLASTIN TIME (PTT) 2015-04-21 PARTIAL THROMBOPLASTIN TIME 30.6 24.2-37.7 PROTHROMBIN TIME (PT, INR) 2015-04-21 INTERNATIONAL NORM. RATIO 0.9 SE E NOTE PROTHROMBIN TIME 10.0 10.1-13.1 HOLD-POSSIBLE COAGULATION 2015-04-21 HOLD-POSSIBLE COAGULATION SEE NOTE TROPONIN-I 2015-04-21 TROPONIN-I < 0.03 < 0.03 XR CHEST 1 VIEW 2015-04-21 HOLD-POSSIBLE COAGULATION 2015-04-21 HOLD-POSSIBLE COAGULATION SEE NOTE FOLLICLE STIMULATING HORMONE (FSH) 2015-02-02 FOLLICLE STIMULATING HORMONE 60.4 TESTOSTERONE, TOTAL 2015-02-02 TESTOSTERONE, TOTAL 12 2-45 CBC w DIFF 2014-12-08 WBC 9.3 4.8-10.8 ABSOLUTE NEUTROPHIL COUNT 6.8 2. 2-7.9 RBC 4.35 4.20-5.50 HEMOGLOBIN 14.0 12.0-16.0 HEMATOCRIT 40.4 37-47 MCV 92.9 80-98 MCH 32.1 27.0-33.0 MCHC 34.6 31.0-35.0 PLATELET COUNT 278 160-400 RDW 12.5 11.0-16.0 NEUTROPHILS 72.8 45-73 LYMPHOCYTES 17.3 20-40 MONOCYTES 7.1 2-11 EOSINOPHILS 2.0 0-4 BASOPHILS 0.7 0-2 TROPONIN-I 2014-10-03 TROPONIN-I < 0.03 < 0.03 CBC w DIFF 2014-10-03 WBC 6.5 4.8-10.8 ABSOLUTE NEUTROPHIL COUNT 3.3 2. 2-7.9 RBC 4.32 4.20-5.50 HEMOGLOBIN 13.5 12.0-16.0 HEMATOCRIT 38.6 37-47 MCV 89.2 80-98 MCH 31.1 27.0-33.0 MCHC 34.9 31.0-35.0 PLATELET COUNT 285 160-400 RDW 12.6 11.0-16.0 NEUTROPHILS 50.5 45-73 LYMPHOCYTES 40.2 20-40 MONOCYTES 6.6 2-11 EOSINOPHILS 2.0 0-4 BASOPHILS 0.6 0-2 CHEM 7 PROFILE 2014-10-03 NA 142 135-145 K 3.6 3.3-5.1 CL 105 96-108 CO2 27 22-29 ANION GAP 14 12-20 GLUCOSE,RANDOM 111 60-115 BUN 18 9-16 CREATININE 0.87 0.5-1.4 ESTIMATED GFR >60 ESTIMATED CrCl Test not performed D-DIMER 2014-10-03 D-DIMER < 200 LIPASE 2014-10-03 LIPASE 42 8-78 LIVER PROFILE 2014-10-03 PROTEIN, TOTAL 6.8 6.5-8.0 ALBUMIN 4.2 3.5-5.0 BILIRUBIN, TOTAL 0.5 0.0-1.0 BILIRUBIN, DIRECT 0.2 0.0-0.5 ALK. PHOS. 72 39-117 GOT 20 5-31 GPT 13 0-31 TROPONIN-I 2014-10-03 TROPONIN-I < 0.03 < 0.03 XR CHEST 1 VIEW 2014-10-03 LIPOPROTEIN FRACTIONATION (LIPID PANEL) 2014-09-28 CHOLESTEROL 214 TRIGLYCERIDE 118 HDL 62 LDL 129 BASIC METABOLIC PROFILE FAST 2014-09-28 NA 142 135-145 K 4.1 3.3-5.1 CL 108 96-108 CO2 26 22-29 ANION GAP 12 12-20 FASTING BLOOD SUGAR 103 60-99 BUN 14 9-16 CREATININE 0.74 0.5-1.4 ESTIMATED GFR >60 ESTIMATED CrCl 77.9 CALCIUM 9.1 8.4-10.2 CBC w DIFF 2014-09-28 WBC 4.3 4.8-10.8 ABSOLUTE NEUTROPHIL COUNT 1.9 2. 2-7.9 RBC 4.15 4.20-5.50 HEMOGLOBIN 12.8 12.0-16.0 HEMATOCRIT 38.1 37-47 MCV 91.9 80-98 MCH 31.0 27.0-33.0 MCHC 33.7 31.0-35.0 PLATELET COUNT 247 160-400 RDW 12.8 11.0-16.0 NEUTROPHILS 44.4 45-73 LYMPHOCYTES 41.5 20-40 MONOCYTES 10.3 2-11 EOSINOPHILS 2.9 0-4 BASOPHILS 0.9 0-2 CPK & MB 2014-09-28 CPK 67 26-140 CPK-MB 0.8 < 0.1-3.7 TROPONIN-I 2014-09-28 TROPONIN-I < 0.03 < 0.03 TROPONIN-I 2014-09-27 TROPONIN-I < 0.03 < 0.03 CBC w DIFF 2014-09-27 WBC 5.7 4.8-10.8 ABSOLUTE NEUTROPHIL COUNT 3.1 2. 2-7.9 RBC 4.57 4.20-5.50 HEMOGLOBIN 13.9 12.0-16.0 HEMATOCRIT 41.3 37-47 MCV 90.4 80-98 MCH 30.4 27.0-33.0 MCHC 33.6 31.0-35.0 PLATELET COUNT 275 160-400 RDW 12.7 11.0-16.0 NEUTROPHILS 53.7 45-73 LYMPHOCYTES 37.7 20-40 MONOCYTES 6.4 2-11 EOSINOPHILS 1.5 0-4 BASOPHILS 0.7 0-2 CHEM 7 PROFILE 2014-09-27 NA 141 135-145 K 4.1 3.3-5.1 CL 106 96-108 CO2 24 22-29 ANION GAP 15 12-20 GLUCOSE,RANDOM 73 60-115 BUN 10 9-16 CREATININE 0.72 0.5-1.4 ESTIMATED GFR >60 ESTIMATED CrCl 80.2 CPK & MB 2014-09-27 CPK 77 26-140 CPK-MB 0.9 < 0.1-3.7 D-DIMER 2014-09-27 D-DIMER < 200 TROPONIN-I 2014-09-27 TROPONIN-I < 0.03 < 0.03 CHEST 2 VIEWS [id number] 2014-09-27 RAPID STREP A SCREEN 2014-08-16 RAPID STREP A SCREEN A negative screen r esult does not rule out the presence of RAPID STREP A SCREEN low numbers of Grou p A Beta-hemolytic streptococci. RAPID STREP A SCREEN Culture confirmatio n of a negative Rapid Strep A Screen will RAPID STREP A SCREEN be performed automatically. RAPID STREP A SCREEN RAPID STREP A SCREEN RAPID STREP A NEGATIVE MAMMOGRAM, SCREENING CBC w DIFF 2013-12-20 WBC 5.1 4.8-10.8 ABSOLUTE NEUTROPHIL COUNT 3.1 2. 2-7.9 RBC 4.56 4.20-5.50 HEMOGLOBIN 14.4 12.0-16.0 HEMATOCRIT 43.3 37-47 MCV 95.0 80-98 MCH 31.5 27.0-33.0 MCHC 33.2 31.0-35.0 PLATELET COUNT 318 160-400 RDW 12.4 11.0-16.0 NEUTROPHILS 61.3 45-73 LYMPHOCYTES 29.9 20-40 MONOCYTES 7.5 2-11 EOSINOPHILS 0.6 0-4 BASOPHILS 0.8 0-2 FERRITIN 2013-12-20 FERRITIN 152 10-250 IRON + IBC (FE) 2013-12-20 IRON 110 30-160 IBC 347 228-428 % SATURATION 32 15-50 PARTIAL THROMBOPLASTIN TIME (PTT) 2013-12-20 PARTIAL THROMBOPLASTIN TIME 31.3 23.6-37.6 PROTHROMBIN TIME (PT, INR) 2013-12-20 INTERNATIONAL NORM. RATIO 0.9 SE E NOTE PROTHROMBIN TIME 10.3 10.1-13.1 LIPOPROTEIN FRACTIONATION (LIPID PANEL) 2013-11-03 CHOLESTEROL 221 TRIGLYCERIDE 106 HDL 66 LDL 134 CBC w DIFF 2013-11-03 WBC 6.0 4.8-10.8 ABSOLUTE NEUTROPHIL COUNT 3.8 2. 2-7.9 RBC 4.23 4.20-5.50 HEMOGLOBIN 13.5 12.0-16.0 HEMATOCRIT 39.0 37-47 MCV 92.2 80-98 MCH 31.9 27.0-33.0 MCHC 34.6 31.0-35.0 PLATELET COUNT 303 160-400 RDW 11.9 11.0-16.0 NEUTROPHILS 63.6 45-73 LYMPHOCYTES 26.8 20-40 MONOCYTES 8.0 2-11 EOSINOPHILS 0.8 0-4 BASOPHILS 0.8 0-2 PROFILE, FASTING 2013-11-03 NA 140 135-145 K 3.7 3.3-5.1 CL 103 96-108 CO2 29 22-29 ANION GAP 12 12-20 FASTING BLOOD SUGAR 124 60-99 BUN 14 9-16 CREATININE 0.90 0.5-1.4 ESTIMATED GFR >60 PROTEIN, TOTAL 6.8 6.5-8.0 ALBUMIN 4.4 3.5-5.0 BILIRUBIN, TOTAL 0.9 0.0-1.0 CALCIUM 9.6 8.4-10.2 ALK. PHOS. 76 39-117 GOT 18 <3-31 GPT 14 <6-31 TSH (THYROID STIMULATING HORMONE) 2013-11-03 TSH 1.27 0.32-4.0 VITAMIN D 25-OH TOTAL 2013-11-03 VITAMIN D 25-OH TOTAL 44.7 >30 XR SHOULDER RT 2 VIEWS 2013-04-20 Urine Dipstick Urine-Color yellow Appearance clear WBC Esterase neg Nitrite-Urine neg Urobilinogen,Sangeeta-Qn neg Protein neg pH 5.0 Occult Blood neg Specific [place] 1.005 Ketones neg Bilirubin neg Glucose neg Colonoscopy MAMMOGRAM, SCREENING CULTURE, STOOL 2012-12-07 CULTURE, STOOL STOOL CULTURE RESULT CULTURE, STOOL No Salmonella, Shige lla, Campylobacter isolated. CULTURE, STOOL No Sorbitol-neg E. c [place] isolated. CULTURE, STOOL Contact lab if other pathogens are suspected. CULTURE, STOOL BASIC METABOLIC PROFILE RANDOM 2012-12-04 NA 137 135-145 K 4.2 3.3-5.1 CL 100 96-108 CO2 28 22-29 ANION GAP 13 12-20 GLUCOSE,RANDOM 76 60-115 BUN 19 9-16 CREATININE 0.83 0.5-1.4 ESTIMATED GFR >60 CALCIUM 9.7 8.4-10.2 CBC w DIFF 2012-12-04 WBC 5.9 4.8-10.8 ABSOLUTE NEUTROPHIL COUNT 3.1 2. 2-7.9 RBC 4.32 4.20-5.50 HEMOGLOBIN 13.3 12.0-16.0 HEMATOCRIT 39.6 37-47 MCV 91.8 80-98 MCH 30.8 27.0-33.0 MCHC 33.6 31.0-35.0 PLATELET COUNT 276 160-400 RDW 11.5 11.0-16.0 NEUTROPHILS 53.0 45-73 LYMPHOCYTES 37.2 20-40 MONOCYTES 8.1 2-11 EOSINOPHILS 0.9 0-4 BASOPHILS 0.8 0-2 STOOL WBC 2012-12-07 STOOL WBC NEGATIVE NEGATIVE CBC w DIFF 2012-09-17 WBC 5.5 4.8-10.8 ABSOLUTE NEUTROPHIL COUNT 2.5 2. 2-7.9 RBC 4.50 4.20-5.50 HEMOGLOBIN 14.0 12.0-16.0 HEMATOCRIT 42.0 37-47 MCV 93.5 80-98 MCH 31.2 27.0-33.0 MCHC 33.3 31.0-35.0 PLATELET COUNT 348 160-400 RDW 12.2 11.0-16.0 NEUTROPHILS 45.9 45-73 LYMPHOCYTES 44.4 20-40 MONOCYTES 7.6 2-11 EOSINOPHILS 1.4 0-4 BASOPHILS 0.8 0-2 CHEM 7 PROFILE 2012-09-17 NA 143 135-145 K 3.7 3.3-5.1 CL 108 96-108 CO2 24 22-29 ANION GAP 15 12-20 GLUCOSE,RANDOM 95 60-115 BUN 12 9-16 CREATININE 0.79 0.5-1.4 ESTIMATED GFR >60 ESTIMATED CrCl 59.2 URINALYSIS - CLEAN CATCH (UA) 2012-09-17 COLOR YELLOW APPEARANCE,(UA) CLEAR SPECIFIC GRAVITY <= 1.005 1.005-1.025 LEUKOCYTES NEG NEG NITRITE NEG NEG PROTEIN,QUALITATIVE NEG NEG - TR TOD PH 5.5 5.0-8.0 URINE BLOOD NEG NEG KETONES NEG NEG GLUCOSE NEG NEG CT BRAIN NO CONTRAST 2012-09-17 LIPOPROTEIN FRACTIONATION (LIPID PANEL) 2012-03-05 CHOLESTEROL 237 TRIGLYCERIDE 125 HDL 61 LDL 151 CBC w DIFF 2012-03-05 WBC 5.6 4.8-10.8 ABSOLUTE NEUTROPHIL COUNT 3.1 2. 2-7.9 RBC 4.19 4.20-5.50 HEMOGLOBIN 13.1 12.0-16.0 HEMATOCRIT 39.3 37-47 MCV 93.9 80-98 MCH 31.3 27.0-33.0 MCHC 33.4 31.0-35.0 PLATELET COUNT 323 160-400 RDW 12.7 11.0-16.0 NEUTROPHILS 55.2 45-73 LYMPHOCYTES 34.9 20-40 MONOCYTES 7.4 2-11 EOSINOPHILS 1.8 0-4 BASOPHILS 0.8 0-2 TSH (THYROID STIMULATING HORMONE) 2012-03-05 TSH 0.95 0.32-4.0 Urine Dipstick Urine-Color Appearance WBC Esterase negative Nitrite-Urine negative Urobilinogen,Sange[place]-Qn normal 0.2 Protein negative pH 5.0 Occult Blood negative Specific [place] 1.015 Ketones negative Bilirubin negative Glucose negative PROFILE, FASTING 2012-03-05 NA 139 135-145 K 4.1 3.3-5.1 CL 106 96-108 CO2 27 22-29 ANION GAP 10 12-20 FASTING BLOOD SUGAR 85 60-99 BUN 16 9-16 CREATININE 0.76 0.5-1.4 ESTIMATED GFR >60 PROTEIN, TOTAL 6.9 6.5-8.0 ALBUMIN 4.1 3.5-5.0 BILIRUBIN, TOTAL 0.9 0.0-1.0 CALCIUM 9.2 8.4-10.2 ALK. PHOS. 63 39-117 GOT 16 <3-31 GPT 12 <6-31 VITAMIN B12 AND FOLATE 2012-03-05 B12 258 200-900 FOLATE 8.9 4.5-16.6 VITAMIN D 25-OH TOTAL 2012-03-05 VITAMIN D 25-OH TOTAL 36.7 >30 REASON FOR VISIT physical, FYI, FYI, Follow up bipolar affective disorder, 3 month f/u, FYI, Message, FYI only, Refill, Refills, Message, Follow up Paroxysmal atrial fibrillation, Message, Needs call back from office, Message, Message, Follow up bipolar affective disorder, Message, Message, pre-operative, FYI only,Message, Message, HDF, follow-up after hospital discharge, Refill, FYI, Message, questions, follow-up after hospital discharge, Message, FYI, Refills, FYI, 6 month f/u, Follow up Inhalation of noxious fumes, accidental or unintentional, subsequent encounter, Message, HDF, follow-up after Emergency Room visit, Message, FYI, Needs call back from office, Message, Message to self, 2 month f/u, Followup Coronary artery spasm, 4 month f/u, Message, HDF, follow-up after Emergency Room visit, Message,Follow up restless leg syndrome, Needs call back from office, 3 month f/u, Message, follow-up afterEmergency Room visit, FYI only, Needs call back from office, FYI only, HDF, follow-up after hospital discharge, 1 month f/u, Follow up Coronary artery spasm, Needs call back from MD, Needs call back from MD, HDF, follow-up after hospital discharge, HDF, follow-up after hospital discharge, HDF, Needs call back from office, Needs call back from office, HDF, HDF, hdf needed, 1 month f/u, Follow up Coronary artery spasm, Message, Follow up Coronary artery spasm, 2 week f/u, Refill, Needs referral, Follow up Coronary artery spasm, Message, Blood work, Message to self, Follow up Coronary artery spasm, FYI, New Refill Request, Cancel Appointment Request, Reschedule Appointment Request, New Referral Request, 6 month f/u, Appointment, 1 month f/u, Refill, Follow up Epigastric pain, 2 week f/u, Mess age, Message, Message, Message, Message, Message to self, vomiting, epigastric pain, Message, Message, Needs call back from office, rash, 3 month f/u, Follow up Coronary artery spasm, 3 month f/u, Refill, 1 month f/u, 3 month f/u, Needs call back from office, [facility], follow-up after Emergency Room visit, FYI, Follow up Coronary artery spasm, Message, FYI, FYI, chest pain, d/c [facility] 08/29, FYI, Message, need help with some issues, 1 month f/u, d/c 08/05 hospital in [place], follow-up after hospital discharge, FYI, Needs call back from office, 1 month f/u, low blood pressure, follow-up after hospital discharge, Refill correction, Refill, Appointment , Needs call back from office, FYI, Refill, Refills, RE:Pain management clinic, Message, Follow up Cervical radiculopathy, Needs call back from office, Needs call back from office, Message to self, follow-up after Emergency Room visit, Message, Message, Needs call back from office, Message to self, new neck pain and numbness L fingers, cough, Needscall back from office, Message, Message, sores, roof of mouth, Needs call back from office, 2 week f/u, Follow up Cervical radiculopathy, 2 month f/u, Follow up bipolar affective disorder, cervical disc disease, Follow up restless leg syndrome, FYI, 1 month f/u, Follow up hypertension, restless legsyndrome, Message, Message, Refill, 3 month f/u, Needs call back from office, follow-up after hospital discharge, Message, new onset HTN, follow-up after Emergency Room visit, Message, 1 month f/u, Follow up bipolar affective disorder, medical clearance, Follow up bipolar affective disorder, Message, pre-op, 1 month f/u, 3 month f/u, fecal incontinence, Message, Message, Shoulder pain, 6 month f/u, 3 day f/u, Follow up bipolar affective disorder, Follow up bipolar affective disorder, hand injury, follow-up after Emergency Room visit, 4 month f/u, urine incontinence, Returned call, Needs call back from MD, Needs call back from MD, Follow up bipolar affective disorder, FYI, Message, flu shot,Follow up hypertension, 6 month f/u, 2 week f/u, gastritis, urgent visit, Needs call back from office, Needs call back from office, Re:Please review your Payment/CoPay Details, skin lesion, 6 month f/u, Follow up hypertension, Needs call back from office, chest pressure, follow-up after hospital discharge, Message, Follow up Atypical chest pain, 3 month f/u, Refill, Follow up Atypical chest pain,Message, Discharged from [facility], follow-up after hospital discharge, Needs referral, Message, Follow up Hair loss, Ecchymosis, urgent visit, May want to see you, Follow up hypertension, bipolar affective disorder, urgent visit, Message, urgent visit, script, annual exam, f/u visit, follow up, f/u visit, Refills, f/u visit, annual visit, f/u visit Insurance Providers Health Insurance Type Health Plan Insurance Address Health Plan Insurance Phone Health Plan Insurance Name Health Plan Coverage Dates Member ID Patient Relationship to Subscriber Patient Address Patient Phone Patient Name Patient Date of Subscriber ID Subscriber Name Subscriber Date of [facility] [address] [place] [address] [facility] sg Gonzalez [id number] MEDICARE [address] [place] [phone] MEDICARE self Joselin Denton [id number] AETNA [address] [address] [facility] [address] AET[employer] self Joselin Denton [id number] [facility] HMO [address] [facility] [address] [facility] self Joselin Denton [id number] MEDICARE [address] [place] [id number] MEDICARE self Joselin Denton [id number] AETNA [address] [facility] [address] AETNA self Cathyajaira Denton [id number]
--- OUTSIDE RECORDS SUMMARY | 2022-11-20 14:49 | XMS_ITS | Patient Health Record ---
Author Name Unknown [facility] Address [address] [place] [address] Care Team Providers Care Appraiser Real Estate Name Role Phone Gustavo Suarez MD Primary Care Provider Unavail able Magen Acevedo Unavailable [phone] Kimberly López Unavailable [phone] ALLERGIES Allergen (clinical drug ingredient) Drug/Non Drug Allergy documented on EMR Reaction Allergy Type Onset Date Status amoxicillin Amoxicillin rash Drug Allergy Act joel Penicillin rash Drug Allergy Active codeine Codeine stomach pain Drug Allergy Acti ve REASON FOR REFERRAL No Information MEDICATIONS Medication SIG (Take, Route, Frequency, Duration) Notes Start Date End Date Status Estradiol 0.0375 MG/24HR 1 patch to skin Transdermal Two times a Week Active Meloxicam 15 MG 1 tablet Orally Once a day for 30 day(s) 06/12/2017 Not-Taking Gabapentin Active Oxybutynin Not-Takin g Isosorbide Mononitrate Active Pramipexole Dihydrochloride Not-Taking LaMICtal 300 mg 1 tablet Orally Once a day for 30 day(s) Active Labetalol HCl 100 MG Orally Twice a day Not-Taking Propranolol HCl 10 MG 1 tablet Orally Twice a day for 30 day(s) Not-Taking amLODIPine Besylate Not-Taking Abilify 10 MG 1 tablet Orally Once a day for 30 day(s) Not-Taking Atorvastatin Calcium Active Wellbutrin 100mg Not-Takin g - Active Physical Therapy . . . 2-3x/week for 3-4 weeks 09/26/2021 Active Ativan 1 MG 1 tablet Orally Twice a day Active Methylphenidate 10mg once a day Active Ibuprofen 800 MG 1 tablet with food or milk as needed Orally Three times a day for 30 days 03/26/2017 Not-Taking Metoprolol Tartrate 25 MG 1/2 tab Orally Twice a day Active Walking Boot/Pneumatic As directed Wear Daily for Until further notice 04/14/2017 Not-Taking Nitroglycerin Active Physical Therapy . . . 2-3x/week for 3-4 weeks 05/20/2017 Not-Taking Valtrex 1000 mg 1 tablet Orally every 12 hrs for 10 day(s) Active Gabapentin 400 MG 1 capsule Orally i po qd hs for 30 Not-Taking IMMUNIZATIONS Vaccine Route Administration Date Status Comme nts COVID-19 Pfizer BioNTech Vaccine Unknown 09/14/2021 Adm inistered 1st 12/14/20 SOCIAL HISTORY Tobacco Use: Social History Observation Description Date Details (start date - stop date) Former Smoker 05/05/1975 - 05/05/1993 Sex Assigned At : Social History Observation Description Sex Assigned At Unknown Tobacco Use/Smoking Question Answer Notes Are you a: former smoker When did you start smoking? 05/05/1975 When did you stop smoking? 05/05/1993 How long has it been since y ou last smoked? < 1 month Additional Findings: Tobacco User Modera te cigarette smoker (10-19 cigs/day) Additional Findings: Tobacco Non-User Current no n-smoker Alcohol Screen Question Answer Notes Did you have a drink containing alcohol in the p ast year? No Points 0 Interpretation Negative Tobacco use other than smoking: Question Answer Notes Are you an other tobacco user? No PROBLEMS Problem Type ICD Code Onset Dates Problem Status W/U Status Risk SNOMED Code Notes Problem Primary osteoarthrit is, right ankle and foot (M19.071) Active confirmed Localized, prim pati osteoarthritis of the ankle and/or foot (768963584) Problem Hallux valgus (acquired), right foot (M20.11) Active confirmed Acquired hallux valgus (44086395) Problem Other hammer toe(s) (acquired), right foot (M20.41) Active confirmed Acquired hammer toe of right foot (2451035872775666) Problem MS (multiple sclerosis) (G35) Active confirmed [id number] Encounters Encounter Location Date Provider Diagnosis [facility] [address] [place] [address] 03/01/2022 [facility] ([facility]) [address] [place] [address] 03/13/2022 Kimberly [facility] [address] [address] 03/19/2022 [facility] [address] [address] 03/26/2022 [facility] [address] 04/10/2022 Kimberly López PLAN OF TREATMENT Pending Test Test Name Order Date X ray : Ankle, right 2V 10/15/2018 X ray : Foot, right 2V 04/14/2017 X ray : Foot, right 2V 04/24/2017 X ray : Foot, right 2V 05/14/2017 X ray : Foot, right 3V 06/12/2017 X ray : Foot, right 3V 10/23/2021 X ray : Foot, right 3V 08/27/2017 X ray : Foot, right 3V 10/15/2018 X ray : Foot, right 3V 09/26/2021 X ray : Foot, right 3V 02/12/2017 X ray : Foot, right 3V 03/09/2013 [id number] Debride <25 sq cm 05/20/2017 [id number] OF HEMATOMA/FLUID 019 Insurance Providers Payer Name Payer Address Payer Phone Subscriber Number Group Number Insured Name Patient Relationship to Insured Coverage Start Date Coverage End Date [employer] [address] [place] [address] [id number] Ying Denton Self - patient is the insured [facility] [address] [place] [address] [id number] Ying Denton Self - patient is the insured MEDICAL (GENERAL) HISTORY Medical History History ICD Code anxiety depression chronic sinusitis chicken pox measles joint implants/screws Psychiatric disorder Surgical History Surgery Date(Month/Year) Partial hysterectomy 1992 3 discs removed from neck appendectomy 1973 bunionectomy knee, meniscus rotator cuff tear repair Kike w ORIF R, HT R 2nd & 3rd repair 1 06/11/16 Hospitalization History Reason Date(Month/Year) [facility]-Reaction to hypertension, overnight, from [facility] 08/27/2017 [facility] hosp - chest pain 019
--- NOTE | 2022-11-20 15:52 | AM.OFFWIN_ITS ---
Intake Vital Signs 11/20/22 15:56 BP 130/80 Blood Pressure Location Lt brachial Position Sitting Pulse 70 Pulse Source Pulse Oximeter Pulse Oximetry (%) 99 Oxygen Delivery Method Room Air Intake Visit Reasons: EP eye pain (lobby) Intake Note: Patient here for left eye pain, she states she poked her eye with mascara yesterday morning. It is very bothersome, getting swollen, light sensitivity and feels like their is a scratch. Patient Tobacco Use Status: Never used Tobacco Allergies penicillin G [Penicillin G] Allergy (Mild, Verified 11/20/22 16:24) RASH acetaminophen [Tylenol-Codeine #3] Allergy (Unknown, Verified 11/20/22 16:24) Abdominal Pain penicillin V Allergy (Unknown, Verified 11/20/22 16:24) Abdominal Pain codeine [Codeine] Adverse Reaction (Mild, Verified 11/20/22 16:24) SEVERE ABDOMINAL PAIN Do you need a note to return to daycare/school/sports/work: No HPI EP eye pain (lobby) HPI Details 62-year-old female presented to the office for a sick visit. Patient accidentally scratched her eye with the mascara brush. Tearing of the eye with conjunctival congestion. [facility] Medical History (Updated 11/20/22 @ 16:26 by Clarence Leiva MD) Anemia Anxiety Atrial fibrillation Bipolar disease, manic Cardiac microvascular disease Cardiomyopathy Cervical spondylosis Chronic headaches Fatigue GERD (gastroesophageal reflux disease) Insomnia Lumbar spondylosis Obstructive sleep apnea Occasional tremors Restless legs syndrome (RLS) Spinal stenosis in cervical region TIA (transient ischemic attack) Surgical History H/O: knee surgery History of carpal tunnel release Hx of appendectomy Hx of cervical spine surgery Hx of cholecystectomy Hx of shoulder surgery Family History Father Dementia Cancer Mother Cancer COPD (chronic obstructive pulmonary disease) Multiple sclerosis Daughter Myasthenia Social History Alcohol intake: current Patient Tobacco Use Status: Never used Tobacco Physical Exam Vital Signs: Last Vital Signs Pulse 70 11/20/22 15:56 BP 130/80 11/20/22 15:56 Pulse Ox 99 11/20/22 15:56 Oxygen Delivery Method Room Air 11/20/22 15:56 Eyes Other: Left eye: Bulbar conjunctiva is congested. No foreign body seen. Assessment & Plan Assessment & Plan (1) Corneal abrasion: Code(s): S05.00XA - Injury of conjunctiva and corneal abrasion without foreign body, unspecified eye, initial encounter Plan: The Wood's lamp in the office is not working. A clinical diagnosis of corneal abrasion is made. Patient was advised to use the antibiotic 4 times a day. Return on Friday for a recheck. Coding Level of Care Code Est Pt Level 3 (00030) Diagnoses Corneal abrasion S05.00XA
[2022-11-20 15:56] VITALS: BP 130/80; PULSE 70; O2SAT 99
== END 2022-11-20 16:32 | disposition home or self-care (01) ==
PROVIDERS: PCP Internal Medicine; Visit Provider Internal Medicine
DX: S05.00XA Injury of conjunctiva and corneal abrasion without foreign body, unspecified eye, initial encounter (principal)
CPT/HCPCS: 99213

== ENCOUNTER 2022-11-22 13:04 | Outpatient (AMB) | payer OTHER, SELFPAY ==
--- NOTE | 2022-11-22 13:19 | AM.OFFWIN_ITS ---
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 Pt states she scratched her eye with a mascara wand. Patient Tobacco Use Status: Never used Tobacco Allergies penicillin G [Penicillin G] Allergy (Mild, Verified 11/22/22 13:20) RASH acetaminophen [Tylenol-Codeine #3] Allergy (Unknown, Verified 11/22/22 13:20) Abdominal Pain penicillin V Allergy (Unknown, Verified 11/22/22 13:20) Abdominal Pain codeine [Codeine] Adverse Reaction (Mild, Verified 11/22/22 13:20) SEVERE ABDOMINAL PAIN Do you need a note to return to daycare/school/sports/work: No HPI HPI Comments History of Present Illness Details This is a 62-year-old female who presents to the office today with left-sided eye irritation. Patient presented here 2 days ago after she put herself in the eye with her mascara wound. She was diagnosed with a corneal abrasion and she was told to follow-up here today for a recheck. She states that the erythema and swelling have significantly improved. She does report some blurry vision, but this is likely secondary to the appointment. She denies any eye pain. She denies any systemic symptoms. [facility] Medical History (Updated 11/22/22 @ 14:59 by VON Nixon) Anemia Anxiety Atrial fibrillation Bipolar disease, manic Cardiac microvascular disease Cardiomyopathy Cervical spondylosis Chronic headaches Fatigue GERD (gastroesophageal reflux disease) Insomnia Lumbar spondylosis Obstructive sleep apnea Occasional tremors Restless legs syndrome (RLS) Spinal stenosis in cervical region TIA (transient ischemic attack) Surgical History H/O: knee surgery History of carpal tunnel release Hx of appendectomy Hx of cervical spine surgery Hx of cholecystectomy Hx of shoulder surgery Family History Father Dementia Cancer Mother Cancer COPD (chronic obstructive pulmonary disease) Multiple sclerosis Daughter Myasthenia Social History Alcohol intake: current Patient Tobacco Use Status: Never used Tobacco Review of Systems Const All systems reviewed & are unremarkable except as noted in HPI and below Eyes Reports no additional complaints, Reports blurry vision and Reports irritation ENT Reports no additional complaints Card Reports no additional complaints Resp Reports no additional complaints GI Reports no additional complaints Reports no additional complaints Musc Reports no additional complaints Skin/Breast Reports system reviewed and no additional complaints, except as documented Neuro Reports no additional complaints Psych Reports no additional complaints Endo Reports no additional complaints Laron/Lymph Reports no additional complaints Aller/Immun Reports no additional complaints Physical Exam Vital Signs: Last Vital Signs Temp 97 F 11/22/22 13:21 Pulse 90 11/22/22 13:21 BP 110/60 11/22/22 13:21 Pulse Ox 99 11/22/22 13:21 Oxygen Delivery Method Room Air 11/22/22 13:21 Const General: cooperative, healthy appearing, comfortable, no acute distress, well developed, alert, awake and Physically active Orientation/consciousness: patient oriented x3 HEENT Head: Yes normal to inspection Ears: hearing grossly normal bilaterally General nose exam: Normal external nose present Face and sinus: Yes normal facial exam Eyes Conjunctivae: conjunctival abnormal left conjunctival injection; without discharge Pupils: Equal, round and reactive pupils present EOM: EOMs intact bilaterally Resp Effort & Inspection: normal respiratory effort Auscultation: clear to auscultation bilaterally Cardio Rate: regular rate Rhythm: regular rhythm Heart sounds: no gallops, no murmurs and no rubs GI Inspection: Yes normal to inspection Auscultation: normal bowel sounds Skin General skin exam: no rashes or lesions noted Neuro General: patient oriented x3 Cranial nerves: Yes Equal, round and reactive pupils present Assessment & Plan Assessment & Plan (1) Corneal abrasion: Code(s): S05.00XA - Injury of conjunctiva and corneal abrasion without foreign body, unspecified eye, initial encounter Plan: This is a 62-year-old female who presents today for a corneal abrasion recheck. She was seen here 2 days ago and was diagnosed with a corneal abrasion the Wood's lamp was not available for evaluation at that time. She came here requesting with lab evaluation. Unfortunately, oliver lamp was still unavailable. I explained to the patient that she was diagnosed with a corneal abrasion is being treated accordingly. Her symptoms appear to be improving per patient report. She was instructed to continue with the current plan of action. Patient was instructed to follow up here or go to the emergency room for vision changes, eye pain, or worsening/persistent symptoms. Patient verbalizes her understanding and she is agreeable with the plan. Coding Level of Care Code Est Pt Level 3 (92976) Diagnoses Corneal abrasion S05.00XA
[2022-11-22 13:21] VITALS: BP 110/60; PULSE 90; TEMP 36.1; O2SAT 99
== END 2022-11-22 14:26 | disposition home or self-care (01) ==
PROVIDERS: PCP Internal Medicine; Visit Provider Physician Assistant Medical
DX: S05.02XA Injury of conjunctiva and corneal abrasion without foreign body, left eye, initial encounter (principal)
CPT/HCPCS: 99213

== ENCOUNTER 2022-11-25 08:57 | Outpatient (AMB) | payer OTHER, SELFPAY ==
--- NOTE | 2022-11-25 08:58 | MHC.OFFVIS ---
Intake Vital Signs 11/25/22 09:03 Height 5 ft 3 in Weight 139 lb 2 oz BMI 24.6 BP 173/82 H Blood Pressure Location Rt brachial Position Sitting Pulse 98 Pulse Source Pulse Oximeter Intake Visit Reasons: BILAT DX L3-L4-DRL5 MBB 11/19/22 Intake Note: Pain today 1/10 Home Care Associate Required: No Accompanied by: Self / Same As Patient Allergies penicillin G [Penicillin G] Allergy (Mild, Verified 11/25/22 09:03) RASH acetaminophen [Tylenol-Codeine #3] Allergy (Unknown, Verified 11/25/22 09:03) Abdominal Pain penicillin V Allergy (Unknown, Verified 11/25/22 09:03) Abdominal Pain codeine [Codeine] Adverse Reaction (Mild, Verified 11/25/22 09:03) SEVERE ABDOMINAL PAIN HPI HPI Comments History of Present Illness Details Patient presents today to assess response to Bilateral Diagnostic L3-L4 DR L5 MBB on 11/19/[address] Lees. She presents with left eye patch today due to recent corneal abrasion. She reports being seen by her PCP and started antibiotic. Patient reports 100% pain relief for first 3 hours and 70% pain relief for next 2 hours after procedure with improved functioning, daily activities and sleep. Patient reports she was told significant spondylosis noted during her fluoroscopy imaging on 11/19/22. Today her pain is minimal and rated at 1/10. Previously, she reports pain with prolonged sitting and bending forward. Unfortunately, she forgot to bring her lumbar spine MRI on a disc which was completed at [facility] last year. We will send request to [facility] today and patient will drop off the disc when she is able. Denies any recent cough, cold, infection, fever or other significant changes in medical history since last office visit. Patient denies any bladder or bowel incontinence or saddle anesthesia. PRIOR: Patient is a pleasant 62 years old female with prior history of atrial fibrillation currently on Eliquis, hypertension, hyperlipidemia, chronic headaches, RLS, cervical spinal stenosis with myelopathy, presents today with widespread pain and muscle cramps and spasms in both legs and right upper arm. Denies any past or recent trauma, injury or falls. Patient reports she was previously seen by [facility] with last follow up in 2020. Patient also has significant severe spinal stenosis C3-4, severe degenerative disc disease C6-C7 and anterolisthesis C7-T1 with bilateral foraminal narrowing and stenosis. She sees Dr. Judge for this and has follow up next month. Reports back injections were not helpful. She also completed physical therapy but has not gained improved functioning or pain relief. Patient also reports she has been seen by several neurologists, and has been worked up for MS. She also notes getting second opinion but was told she did not have MS but does have definitive diagnosis. Patient reports her muscle spasms, weakness and spasticity in arms and legs have been progressively getting worse. She also reports intermittent bladder and bowel incontinence, periodically has difficulty finding words and trouble swallowing, loosing dexterity in her hands, loosing her balance and gait frequently and easily tired. Denies saddle anesthesia. Patient reports cyclobenzaprine and gabapentin only partially controlled here pain and spasms. Patient also reports she had right hip replacement on 02/01/22 at [facility] and on 02/2022 she reports loosing all muscle control from neck and all the way down her legs for which she was hospitalized at [facility] where she was again diagnosed with MS vs seizure. She is concerned for worsening of her symptoms without current definitive diagnosis. Patient is interested to pursue second neurogical evaluation at [facility]. Location Chronic arms and legs pain, low back pain Duration Chronic for 6 years Characteristics of symptom or complaint Cramping, hurting, exhausting, aching, spasming, sore Aggravating or associated factors Movements, walking, standing, Relieving factors Baclofen, Flexeril, gabapentin, lorazepam, heat therapy Treatment PT x 6 years, OTx 5 months, back injection at [facility] Medical History Anemia Anxiety Atrial fibrillation Bipolar disease, manic Cardiac microvascular disease Cardiomyopathy Cervical spondylosis Chronic headaches Fatigue GERD (gastroesophageal reflux disease) Insomnia Lumbar spondylosis Obstructive sleep apnea Occasional tremors Restless legs syndrome (RLS) Spinal stenosis in cervical region TIA (transient ischemic attack) Surgical History H/O: knee surgery History of carpal tunnel release Hx of appendectomy Hx of cervical spine surgery Hx of cholecystectomy Hx of shoulder surgery Family History Father Dementia Cancer Mother Cancer COPD (chronic obstructive pulmonary disease) Multiple sclerosis Daughter Myasthenia Social History Alcohol intake: current Patient Tobacco Use Status: Never used Tobacco Review of Systems Const All systems reviewed & are unremarkable except as noted in HPI and below Physical Exam Vital Signs: Last Vital Signs Pulse 98 11/25/22 09:03 BP 173/82 H 11/25/22 09:03 BMI result Body Mass Index 24.6 General: Appears afebrile. Alert and oriented. Mood and affect appropriate. Follows and participates in conversation appropriately. Respiratory effort is unlabored. No cough. Able to transition from sit to stand unassisted. Ambulates with bilaterally normal heel strike and toe off. Eyes Other: Wearing left eye patch r/t recent corneal abrasion. Back/Spine/Pelvis Thoracic/Lumbar Spine: thoracic and lumbar spine normal to inspection, Lasegue's sign negative, straight leg raise negative bilaterally, pain with thoraco-lumbar ROM, paraspinal muscle tenderness, thoraco-lumbar ROM limited, No thoracic spinal tenderness and lumbar spinal tenderness Pelvis: no buttock tenderness and no sciatic notch tenderness Results Reviewed Results Reviewed: MRI C spine 02/2022- cervical fusion C4-6 C2-3 - poetrior disc osteophytecomplex causing partial mild central canals tenosis and severe right neuralforaminal narrowing C3-4 moderate canal stenosis and severe NF narrowing rony C4-5- moderate stenosis moderate NF narrowing L>R C5-6 - mild spinal stenosis severe NF narrowing C6-7- moderate canals stenosis severe NF narrowing C7-T1- moderate stenosis mild to moderate NF narrowing No cord lesions MRI T spine-mild canal stenosis T10-11 and moderate neural foraminal narrowing No cord lesions MRI L spine- L2-L3- mild NF narrowing L 3-4 moderate canal stenosis and mod left NF narrowing L4-5 mild to moderate NF narrowing L>R L5-S1 moderate severe NF narrowing No cord abnormalities. Assessment & Plan Assessment & Plan (1) Lumbar spondylosis: Code(s): M47.816 - Spondylosis without myelopathy or radiculopathy, lumbar region (2) Cervical spondylosis: Code(s): M47.812 - Spondylosis without myelopathy or radiculopathy, cervical region (3) Muscle spasticity: Code(s): M62.838 - Other muscle spasm Plan Patient is status post Bilateral Diagnostic L3-L4 DR L5 MBB on 11/19/22 with 100% pain relief for first 3 hours and 70% pain relief for next 2 hours after procedure with improved functioning, daily activities and sleep. Patient reports she was told significant spondylosis noted during her fluoroscopy imaging on 11/19/22. Today her pain is minimal and rated at 1/10. Previous lumbar spine MRI per referral noted was noted for L2-L3- mild NF narrowing, L 3-4 moderate canal stenosis and mod left NF narrowing, L4-5 mild to moderate NF narrowing L>R, L5-S1 moderate severe NF narrowing. No cord abnormalities. Unfortunately, patient forgot to bring in MRI disc for imaging review today. We will request complete MRI report from [facility] and patient will bring MRI disc when able for review. She would like to hold off for further steps to treat axial low back pain until MRI imaging review. All questions and concerns have been answered and patient agreed with the plan. Follow up for MRI review and sooner if needed. Coding Level of Care Code Est Pt Level 3 (14744) Diagnoses Lumbar spondylosis M47.816 Cervical spondylosis M47.812 Muscle spasticity M62.838
[2022-11-25 09:03] VITALS: BP 173/82; PULSE 98; BMI 24.6
== END 2022-11-25 09:21 | disposition home or self-care (01) ==
PROVIDERS: PCP Internal Medicine; Visit Provider Nurse Practitioner Family
DX: M47.816 Spondylosis without myelopathy or radiculopathy, lumbar region (principal); M47.812 Spondylosis without myelopathy or radiculopathy, cervical region; M62.838 Other muscle spasm
CPT/HCPCS: 99213

== ENCOUNTER → 2022-11-25 08:57 | Outpatient (BNVA) | payer MEDICARE, OTHER, SELFPAY | PROVIDERS: PCP Internal Medicine; Visit Provider Nurse Practitioner Family | DX: M47.816 Spondylosis without myelopathy or radiculopathy, lumbar region (principal); M47.812 Spondylosis without myelopathy or radiculopathy, cervical region; M62.838 Other muscle spasm | CPT/HCPCS: 99212 ==

== ENCOUNTER 2022-11-26 12:58 | Outpatient (AMB) | payer MEDICARE, OTHER, SELFPAY ==
--- NOTE | 2022-11-26 13:20 | A.SPINEOV_ITS ---
Intake Intake Visit Reasons: follow up Intake Note: Ms. Denton is here today to follow up regarding injections. 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 she is a 62-year-old female that we are following for symptoms of cervical myelopathy. She went to see a neurologist at [facility] that told the patient she has no MS. Her ongoing symptoms were thought to be coming from the cervical spine. She states that her dexterity loss is increasing. She recently poked herself in the left eye on accident due to loss of coordination. She also drops objects frequently. In addition, she complains of balance problems and restless legs. I reviewed the MRI of the cervical spine in detail again which shows moderate to severe C3-C4 spinal cord compression due to adjacent degenerative disc disease at moderate spinal cord compression with an anterolisthesis at C7-T1. I do think this patient is suffering from cervical myelopathy. the surgical options are to only treat the most severe C3-C4 level or to perform a extensive spinal surgery that includes C3-C4 C6-C7 and C7-C1 with a posterior instrumented fusion from C5-T2. We decided to only address the C3-C4 level for now and to reassess her symptoms after the surgery. The patient is not ready to undergo the extensive surgery. I do think it is most likely that her symptoms are related to the C3-C4 level. She is using Eliquis for AFib. She needs to stop her Eliquis 3 days prior to surgery. She will also visit her textile screen maker for preoperative clearance. This surgery is scheduled for 01/16/2023 Coding Level of Care Code Est Pt Level 3 (76168) Diagnoses Cervical arthritis with myelopathy M47.12
== END 2022-11-26 13:56 | disposition home or self-care (01) ==
PROVIDERS: PCP Internal Medicine; Visit Provider Neurological Surgery
DX: M47.12 Other spondylosis with myelopathy, cervical region (principal)
CPT/HCPCS: 99213

== ENCOUNTER → 2022-11-26 12:58 | Outpatient (BNVA) | payer MEDICARE, OTHER, SELFPAY | PROVIDERS: Visit Provider Neurological Surgery | DX: M47.12 Other spondylosis with myelopathy, cervical region (principal) | CPT/HCPCS: 99212 ==

== ENCOUNTER 2022-12-14 23:36 | Observation (INO) | payer MEDICARE, OTHER, SELFPAY ==
--- NOTE | ~2022-12-14 | MR_ITS ---
EXAMINATION: MR BRAIN AND CERVICAL SPINE WITHOUT AND WITH CONTRAST CLINICAL INFORMATION: TIA versus MS. Weakness. COMPARISON: None available. TECHNIQUE: Multiplanar, multisequence imaging of the brain and cervical spine was performed before and after the intravenous administration of 6.5 mL of Gadavist. FINDINGS: Brain: There is no acute infarction, mass, hemorrhage, or extra-axial collection. No abnormal or unexpected intracranial enhancement is seen. The ventricles, sulci, and basilar cisterns are normal in size and configuration. Mild nonspecific foci of T2/FLAIR hyperintensity are seen within the cerebral white matter. The flow voids of the major intracranial arteries appear intact. The bones and extracranial soft tissues are within normal limits. There is a small amount of fluid in the right mastoid. Cervical spine: There are postoperative findings related to anterior cervical discectomy and fusion from C4 to C6. There is severe disc height loss at C2-C3, C3-C4, and C7-T1. There is grade 1 anterolisthesis of C7 on T1. No bone marrow edema is seen. There is advanced facet arthropathy particularly on the right at C2-C3 and C3-C4. There is multilevel cord deformity without definite cord edema. No abnormal enhancement is seen within the cervical canal. The extraspinal soft tissues are within normal limits. C2-C3: Disc osteophyte complex with severe right facet arthropathy and uncovertebral hypertrophy resulting in severe right neural foraminal stenosis. No spinal canal stenosis. C3-C4: Disc osteophyte complex with uncovertebral hypertrophy and severe facet arthropathy resulting in severe spinal canal stenosis and severe bilateral neural foraminal stenosis. C4-C5: ACDF. Uncovertebral hypertrophy and facet arthropathy resulting in severe bilateral neural foraminal stenosis and mild to moderate spinal canal stenosis with mild flattening of the left ventral cord. C5-C6: ACDF. Prominent osteophytic ridging in addition to uncovertebral hypertrophy and facet arthropathy resulting in severe spinal canal stenosis with deformation of the ventral cord and severe bilateral neural foraminal stenosis. C6-C7: Disc osteophyte complex with uncovertebral hypertrophy and facet arthropathy resulting in moderate spinal canal stenosis and severe bilateral neural foraminal stenosis. C7-T1: Disc osteophyte complex with ligamentum flavum infolding, uncovertebral and urgency, and facet arthropathy resulting in severe spinal canal stenosis with ventral and dorsal cord deformity and severe bilateral neural foraminal stenosis. MR/MR cervical spine wo/w con IMPRESSION: BRAIN: No acute intracranial abnormality. No infarct, mass, or abnormal enhancement. Mild nonspecific foci of T2/FLAIR hyperintensity within the cerebral white matter. No evidence of definite demyelination. CERVICAL SPINE: Postoperative findings related to anterior cervical discectomy and fusion from C4 to C6. Advanced spondylosis with high-grade spinal canal stenosis and cord deformity seen at C3-C4, C5-C6, and C7-T1. Multilevel high-grade neural foraminal stenosis is also present.
--- NOTE | ~2022-12-14 | CT_ITS ---
EXAMINATION: CT HEAD WITHOUT CONTRAST (STROKE PROTOCOL) CLINICAL INFORMATION: Stroke protocol. COMPARISON: 10/11/2021 TECHNIQUE: Contiguous axial imaging was performed from the skull base to vertex without intravenous administration of contrast. This CT examination was performed using dose optimization techniques as appropriate, variously including the following: *Automated exposure control. *Adjustment of mA and/or kV according to patient size (this includes techniques or standardized protocols for targeted exams where dose is matched to indication/reason for exam; i.e. extremities or head). *Use of iterative reconstruction technique. DLP: 577 mGy-cm FINDINGS: The lateral, third and fourth ventricles are normally outlined. The cortical sulci and basal cisterns are normally outlined as well. There is no acute territorial defect, hemorrhage or midline shift. The extra-axial spaces are unremarkable. CALVARIUM: Intact. MAXILLOFACIAL SINUSES AND MASTOIDS: Clear as visualized. CT/CT head for stroke IMPRESSION: No acute intracranial pathology. This critical result was discussed with Dr. Lewis at 11:52 PM hours on 12/14/2022. It was ascertained that the content and urgency of the report was understood at the time of direct communication.
--- NOTE | ~2022-12-14 | CT_ITS ---
EXAMINATION: CT ANGIOGRAM NECK WITH CONTRAST CT ANGIOGRAM BRAIN WITH CONTRAST CLINICAL INFORMATION: Dysarthria, weakness, paresthesia left arm and leg. COMPARISON: Head CT 10/11/2021. TECHNIQUE: Test bolus sequences followed by intravenous administration 70 mL of Omnipaque 350. Helical imaging was performed in the axial plane from the thoracic inlet to the skull vertex. Delayed postcontrast imaging of the head was also performed. The data was processed at the industrial technologist workstation for generation of MIP sequences. Angled MIPs and volume rendered reformatted images were also generated at an offline 3D workstation. Stenoses are assessed in accordance with NASCET criteria unless otherwise indicated. This CT examination was performed using dose optimization techniques as appropriate, variously including the following: *Automated exposure control *Adjustment of mA and/or kV according to patient size (this includes techniques or standardized protocols for targeted exams where dose is matched to indication/reason for exam; i.e. extremities or head) *Use of iterative reconstruction technique DLP: 1440 mGy-cm FINDINGS: Head CT: There is no intracranial hemorrhage, extra-axial collection, mass effect, or territorial infarction. Ventricles are normal in size without hydrocephalus. No abnormal enhancement is seen. The dural venous sinuses are normally opacified. The right mastoid is underpneumatized and partly opacified. Neck CTA: Aortic arch and great vessel origins are patent. The bilateral common carotid arteries are patent. Atheromatous changes are seen at the carotid bifurcations without associated stenosis. Atheromatous changes are seen at the carotid siphons without stenosis. Both vertebral arteries are patent. Head CTA: No large vessel occlusion is seen. The anterior and posterior circulations appear patent. No aneurysm is seen. Non-vascular findings: The thyroid gland is diffusely enlarged with numerous heterogeneous nodules noted throughout but has been previously evaluated with ultrasound. No consolidation is seen within the upper lungs. Anterior cervical discectomy and fusion changes are seen from C4 to C6 with solid interbody fusion demonstrated. There is severe degeneration at the C6-C7 and C7-T1 levels with grade 1 anterolisthesis seen at C7-T1. There is multilevel advanced facet arthropathy. There is multilevel spinal canal and neural foraminal stenosis. CT/CT angio head neck stroke IMPRESSION: CT HEAD: No intracranial hemorrhage or large acute infarction. CTA NECK: No hemodynamically significant stenosis in the major arteries of the neck. CTA HEAD: No large vessel occlusion or significant stenosis within the intracranial circulation. Additional findings: Advanced degenerative changes in the cervical spine.
[2022-12-14 23:44] LABS: Glucose, Whole Blood 101 mg/dL (60-115)
--- NOTE | 2022-12-14 23:44 | ECG_ITS ---
Test Reason : WEAKNESS Blood Pressure : / mmHG Vent. Rate : 087 BPM Atrial Rate : 087 BPM P-R Int : 194 ms QRS Dur : 084 ms QT Int : 366 ms P-R-T Axes : 071 052 055 degrees QTc Int : 440 ms Sinus rhythm with occasional Premature ventricular complexes Possible Left atrial enlargement Borderline ECG When compared with ECG of 11-OCT-2021 13:35, Premature ventricular complexes are now Present Referred By: Charmaine Lewis Electronically Signed By:Clark Hope
--- NOTE | 2022-12-14 23:53 | ED_ITS ---
HPI - Neuro Symptoms/Deficit General Chief Complaint: Stroke Stated Complaint: Left sided weakness Time Seen by Provider: 12/14/22 23:41 Source: patient and EMS Mode of arrival: EMS Limitations: no limitations History of Present Illness HPI Narrative: Patient comes in the emergency room complaining of slurred speech and motor dysfunction in the left arm and leg and paresthesias, which started approximately 45 minutes ago. Patient has history of multiple TIAs in the past, patient is currently on Eliquis. Also, patient states that earlier today before her symptoms started, she went fishing, and when she went home and was trying to get out of the car, both of her legs felt very weak. Patient states that she is being worked up for multiple sclerosis, has a new neurology consult pending in the next month. Patient denies any visual changes, no chest pain or shortness of breath. No dizziness/lightheadedness. Per EMS, the patient was unable to stand up from sitting position due to weakness in her leg and arm. By the time that the patient arrived to the emergency room, patient was moving all extremiti es Related Data Home Medications Medication Instructions Recorded Confirmed apixaban 5 mg tablet (Eliquis) 5 mg PO BID 08/14/22 10/16/22 biotin 5,000 mcg disintegrating 10,000 mcg PO DAILY 08/14/22 10/16/22 tablet cholecalciferol (vitamin D3) 1,250 1,250 mcg PO QWEEK 08/14/22 10/16/22 mcg (50,000 unit) oral wafer estradiol 0.075 mg/24 hr weekly 1 patch transdermal QWEEK 08/14/22 10/16/22 transdermal patch gabapentin 600 mg tablet See Rx Instructions PO .COMPLEX 08/14/22 10/16/22 lorazepam 2 mg tablet 2 mg PO TID PRN 08/14/22 10/16/22 methylphenidate HCl 20 mg tablet 20 mg PO TID 08/14/22 10/16/22 omeprazole 20 mg capsule,delayed 20 mg PO DAILY 08/14/22 10/16/22 release valacyclovir 1 gram tablet 1,000 mg PO DAILY 08/14/22 10/16/22 lamotrigine 200 mg tablet,extended 400 mg PO 11/20/22 release 24 hr Previous Rx's Medication Instructions Recorded cyclobenzaprine 5 mg tablet 5 mg PO TID #90 tabs 10/16/22 erythromycin 5 mg/gram (0.5 %) eye 0.5 inch ophthalmic (eye) Q6H #1 g 11/20/22 ointment baclofen 20 mg tablet 20 mg PO BID PRN muscle spasm 30 12/02/22 days #60 tabs Allergies Allergy/AdvReac Type Severity Reaction Status Date / Time penicillin G [Penicillin G] Allergy Mild RASH Verified 11/25/22 09:03 acetaminophen Allergy Unknown Abdominal Verified 11/25/22 09:03 [Tylenol-Codeine #3] Pain penicillin V Allergy Unknown Abdominal Verified 11/25/22 09:03 Pain codeine [Codeine] AdvReac Mild SEVERE Verified 11/25/22 09:03 ABDOMINAL PAIN Review of Systems Review of Systems: Constitutional : No Weight loss, No Fever, No Chills, No Night Sweats, No Fatigue, No Malaise ENT/Mouth : No Hearing loss, No Ear Pain, No Nasal Congestion, No Sinus Pain, No Hoarseness, No sore throat, No Rhinorrhea, No Swallowing Difficulty Eyes: No Eye Pain, No Swelling, No Redness, No Foreign Body, No Discharge, No Vision Changes Cardiovascular : No Chest Pain, No SOB, No Dyspnea on Exertion, No Orthopnea, No Edema, No Palpitations Respiratory : No Cough, No Sputum, No Wheezing, No Smoke Exposure, No Dyspnea Gastrointestinal : No Nausea, No Vomiting, No Diarrhea, No Constipation, No abdominal Pain, No Hematochezia, No Melena Genitourinary : no irregular bleeding, No Dysuria, No Urinary Frequency, No Hematuria, No Urinary Incontinence, No Urgency, No Flank Pain, No Urinary Flow Changes, No Hesitancy Musculoskeletal : No joint pain, No Myalgias, No Joint Swelling Skin : No Skin Lesions, No rash Neuro : Complaining of bilateral lower weakness which self resolved, then left upper and lower extremity weakness and paresthesias Psych : No Anxiety/Panic, No Depression, No SI/HI/AH/VH, No Social Issues, Heme/Lymph: No Bruising, No Bleeding,No Lymphadenopathy Endocrine : No Polyuria, No Polydipsia, No Temperature Intolerance PMFSH Past Medical History Medical History Anemia Anxiety Atrial fibrillation Bipolar disease, manic Cardiac microvascular disease Cardiomyopathy Cervical spondylosis Chronic headaches Fatigue GERD (gastroesophageal reflux disease) Insomnia Lumbar spondylosis Obstructive sleep apnea Occasional tremors Restless legs syndrome (RLS) Spinal stenosis in cervical region TIA (transient ischemic attack) Surgical History H/O: knee surgery History of carpal tunnel release Hx of appendectomy Hx of cervical spine surgery Hx of cholecystectomy Hx of shoulder surgery Family History Family History Father Dementia Cancer Mother Cancer COPD (chronic obstructive pulmonary disease) Multiple sclerosis Daughter Myasthenia Social History Social History Alcohol intake: never Patient Tobacco Use Status: Never used Tobacco Smoked in Last 30 Days: No Use of substances other than those prescribed or required for medical reasons: No Advance Directives: No Advance Directives Information Provided: No Physical Exam Vital Signs: Vital Signs: Last Vital Signs Temp 98.2 F 12/15/22 00:08 Pulse 88 12/15/22 01:12 Resp 14 12/15/22 01:12 BP 148/83 H 12/15/22 01:12 Pulse Ox 98 12/15/22 01:12 O2 Del Method Room Air 12/15/22 01:12 BMI result Body Mass Index 26.3 Const: Other: Appearance: Alert. Oriented X3. No acute distress. Eyes: Pupils equal, round and reactive to light. ENT: Pharynx normal. Neck: Normal inspection. Neck supple. No lymph nodes noted. No crepitus CVS: Normal heart rate and rhythm. Pulses normal. Normal S1 and S2 Respiratory: No respiratory distress. Breath sounds normal. No Wheezing. No rales Abdomen: Soft and nontender. No rigidity. No distention. Skin: Skin warm and dry. Normal skin color. Normal skin turgor. Extremities: Negative pronator drift. Strength 4/5 in left arm and left leg, 5/5 in right upper and lower extremity, no mouth drooping, mild slurred speech Neuro: Oriented X 3. See extremities above Psych: calm, cooperative, normal affect Course Course Course Narrative: -on arrival to the emergency room, patient's NIH score is 1. Patient is on Eliquis, patient is not a candidate for tPA. CTA pending Medications Administered Discontinued Medications Generic Name Dose Route Start Last Admin Trade Name Freq PRN Reason Stop Dose Admin Methylprednisolone Sodium Succinate 250 mg 12/14/22 23:42 12/15/22 00:20 Methylprednisolone Sod Succ 125 Mg/2 Ml Vial IVPUSH 12/14/22 23:43 250 mg ONCE ONE Administration Medical Decision Making Medical Decision Making [facility] Narrative: My interpretation of CT: No intracranial bleed, no obvious blockages -patient is not a candidate for tPA -patient nearly regain all strength in left extremities -patient got Solu-Medrol as this may have been an MS flare? Differential Diagnosis Differential Diagnoses: The differential diagnosis associated with the presentation includes (TIA, CVA, multiple sclerosis exacerbation) Admission/Observation Consideration of admission/observation: Escalation of care including admission/observation considered Consult Healthcare Provider Management of the patient was discussed with: Hospitalist (I discussed the patient with Dr. Graham) Lab Data [facility] Lab Attestation statement: I reviewed the patient's lab results. 12/15/22 01:13 12/15/22 00:58 Labs: Lab Results 12/14/22 12/15/22 12/15/22 Range/Units 23:40 00:58 00:58 WBC (4.8-10.8) X10*3/uL RBC (4.20-5.50) X10*6/uL Hgb (12.0-16.0) g/dl Hct (37.0-47.0) % MCV (80.0-98.0) fL MCH (27.0-33.0) pg MCHC (31.0-35.0) g/dl RDW (11.0-16.0) % Plt Count (160-400) X10*3/uL MPV (9.4-12.3) fL Immature Gran % (Auto) (0.0-0.4) % Neut % (Auto) (45-73) % Lymph % (Auto) (20-40) % [place] % (Auto) (2-11) % Eos % (Auto) (0-4) % Baso % (Auto) (0-2) % Lymph # (Auto) (1.2-4.9) X10*3/uL [place] # (Auto) (0.1-1.2) X10*3/uL Eos # (Auto) (0.0-0.4) X10*3/uL Baso # (Auto) (0.0-0.2) X10*3/uL Abs Immat Gran (auto) (0.00-0.03) X10*3/uL Absolute Neuts (auto) (2.0-8.3) x10*3/uL Absolute Nucleated RBC (0.0-0.012) X10*3/uL Nucleated RBC % (auto) (0.0-0.2) /100WBC PT (11.1-13.3) SEC INR (0.9-1.1) Sodium 142 (135-145) mmol/L Potassium 3.7 (3.3-5.1) mmol/L Chloride 109 H (96-108) mmol/L Carbon Dioxide 25 (22-29) mmol/L Anion Gap 12 (12-20) BUN 12 (9-16) mg/dL Creatinine 0.67 (0.5-1.4) mg/dL Estim Creat Clear Calc 80.2 Estimated GFR > 60 POC Glucose 101 (60-115) mg/dL Random Glucose 100 (60-115) mg/dL Calcium 9.1 (8.4-10.2) mg/dL Magnesium 2.0 (1.6-2.6) mg/dL Total Bilirubin 0.4 (0.0-1.0) mg/dL Direct Bilirubin 0.1 (0.0-0.5) mg/dL AST 22 (5-31) U/L ALT 13 (0-31) U/L Alkaline Phosphatase 65 (39-117) U/L Troponin I High Sens < 2.7 (<3.5-17.0) ng/L Total Protein 6.7 (6.5-8.0) g/dL Albumin 3.8 (3.5-5.0) g/dL Ethyl Alcohol < 10 mg/dL 12/15/22 12/15/22 Range/Units 01:13 01:13 WBC 4.6 L (4.8-10.8) X10*3/uL RBC 4.27 (4.20-5.50) X10*6/uL Hgb 13.3 (12.0-16.0) g/dl Hct 40.3 (37.0-47.0) % MCV 94.4 (80.0-98.0) fL MCH 31.1 (27.0-33.0) pg MCHC 33.0 (31.0-35.0) g/dl RDW 13.1 (11.0-16.0) % Plt Count 293 (160-400) X10*3/uL MPV 9.5 (9.4-12.3) fL Immature Gran % (Auto) 0.4 (0.0-0.4) % Neut % (Auto) 39.7 L (45-73) % Lymph % (Auto) 45.7 H (20-40) % [place] % (Auto) 10.8 (2-11) % Eos % (Auto) 3.0 (0-4) % Baso % (Auto) 0.4 (0-2) % Lymph # (Auto) 2.1 (1.2-4.9) X10*3/uL [place] # (Auto) 0.5 (0.1-1.2) X10*3/uL Eos # (Auto) 0.1 (0.0-0.4) X10*3/uL Baso # (Auto) 0.0 (0.0-0.2) X10*3/uL Abs Immat Gran (auto) 0.02 (0.00-0.03) X10*3/uL Absolute Neuts (auto) 1.8 L (2.0-8.3) x10*3/uL Absolute Nucleated RBC 0.000 (0.0-0.012) X10*3/uL Nucleated RBC % (auto) 0.0 (0.0-0.2) /100WBC PT 12.5 (11.1-13.3) SEC INR 1.0 (0.9-1.1) Sodium (135-145) mmol/L Potassium (3.3-5.1) mmol/L Chloride (96-108) mmol/L Carbon Dioxide (22-29) mmol/L Anion Gap (12-20) BUN (9-16) mg/dL Creatinine (0.5-1.4) mg/dL Estim Creat Clear Calc Estimated GFR POC Glucose (60-115) mg/dL Random Glucose (60-115) mg/dL Calcium (8.4-10.2) mg/dL Magnesium (1.6-2.6) mg/dL Total Bilirubin (0.0-1.0) mg/dL Direct Bilirubin (0.0-0.5) mg/dL AST (5-31) U/L ALT (0-31) U/L Alkaline Phosphatase (39-117) U/L Troponin I High Sens (<3.5-17.0) ng/L Total Protein (6.5-8.0) g/dL Albumin (3.5-5.0) g/dL Ethyl Alcohol mg/dL ABG Data Attestation ABG: I personally reviewed and interpreted this ABG as follows: Interpretation: - Independent Interpretation I performed an independent interpretation of an: EKG Interpretation: My interpretation of EKG: Normal sinus rhythm, heart rate 87, no ST segment depression or elevation, no T-wave inversion, QTC 440, occasional PVCs Radiology Impression Discussion of test interpretation with radiology: I discussed test interpretation with the radiologist (CTA negative) and I have reviewed the radiologist's reading. Radiologist Impression: FINDINGS: The lateral, third and fourth ventricles are normally outlined. The cortical sulci and basal cisterns are normally outlined as well. There is no acute territorial defect, hemorrhage or midline shift. The extra-axial spaces are unremarkable. CALVARIUM: Intact. MAXILLOFACIAL SINUSES AND MASTOIDS: Clear as visualized. CT/CT head for stroke IMPRESSION: No acute intracranial pathology. NIH Stroke Scale Internal: Initial- Upon Arrival Level of Consciousness: Alert Level of Consciousness Questions: Answers both questions correctly Level of Consciousness Commands: Performs both tasks correctly Best Gaze: Normal Visual: No visual loss Facial Palsy: Normal Motor Arm (Right): No drift Motor Arm (Left): No drift Motor Leg (Right): No drift Motor Leg (Left): No drift Limb Ataxia: Absent Sensory: Normal Best Language: Mild to moderate aphasia Dysarthia: Normal Extinction and Inattention: No abnormality Score: 1 Critical Care Time Critical Care Time Critical Care Time: Yes Total Critical Care Time: 75 Attestation: I have personally provided critical care time. Time includes review of lab data, radiology results, discussion with consultants, and monitoring for potential decompensation. Intervention performed as documented. Discharge Plan Discharge Clinical Impression: Transient ischemic attack Patient Disposition: Admitted As Inpatient Prescriptions: No Action baclofen 20 mg tablet 20 mg PO BID PRN (Reason: muscle spasm) 30 Days Qty: 60 2RF erythromycin 5 mg/gram (0.5 %) ointment 0.5 inch ophthalmic (eye) Q6H Qty: 1 1RF Eliquis 5 mg tablet 5 mg PO BID omeprazole 20 mg capsule,delayed release(DR/EC) 20 mg PO DAILY valacyclovir 1 gram tablet 1,000 mg PO DAILY methylphenidate HCl 20 mg tablet 20 mg PO TID estradiol 0.075 mg/24 hr patch weekly 1 patch transdermal QWEEK lorazepam 2 mg tablet 2 mg PO TID PRN cholecalciferol (vitamin D3) 1,250 mcg (50,000 unit) wafer 1,250 mcg PO QWEEK biotin 5,000 mcg tablet,disintegrating 10,000 mcg PO DAILY gabapentin 600 mg tablet See Rx Instructions PO .COMPLEX Rx Instructions: 1/2 tab qam 1/2 tab q noon and 2 tabs qhs orally; lamotrigine 200 mg tablet extended release 24hr 400 mg PO cyclobenzaprine 5 mg tablet 5 mg PO TID Qty: 90 1RF
[2022-12-15] VITALS (9 sets, daily range): BP systolic 102–165; BP diastolic 56–84; PULSE 82–98; RESP 14–20; TEMP 36.6–37; O2SAT 95–99; BMI 26.3
[2022-12-15] MEDS: methylPREDNISolone Sod Succ 125 MG/2 ML VIAL 250 MG IVPUSH (00:20)
--- NOTE | 2022-12-15 00:56 | PC.NURSE ---
labs drawn, ekg completed, poc 101, CTA completed, 20g IV access established in right ac. VSS, Neuro intact ,kimberley 15. Call serrano within reach. plan of care ongoing
--- NOTE | 2022-12-15 01:01 | PC.NURSE ---
PT difficult stick delaying lab result. Phelbotomy called to draw lab order
[2022-12-15 01:20] LABS: Alanine Aminotransferase 13 U/L (0-31); Albumin Level 3.8 g/dL (3.5-5.0); Alkaline Phosphatase 65 U/L (39-117); Anion Gap 12 (12-20); Aspartate Amino Transferase 22 U/L (5-31); Bilirubin Direct 0.1 mg/dL (0.0-0.5); Bilirubin Total 0.4 mg/dL (0.0-1.0); Blood Urea Nitrogen 12 mg/dL (9-16); Calcium 9.1 mg/dL (8.4-10.2); Carbon Dioxide 25 mmol/L (22-29); Chloride 109 mmol/L (96-108); Creatinine Clr Calc Pharmacy 80.2; Estimated Glomerular Filt Rate > 60; Ethanol < 10 mg/dL; Glucose Random 100 mg/dL (60-115); Potassium 3.7 mmol/L (3.3-5.1); Sodium 142 mmol/L (135-145); Total Protein 6.7 g/dL (6.5-8.0)
[2022-12-15 01:24] LABS: Troponin-I High Sensitivity < 2.7 ng/L (<3.5-17.0)
[2022-12-15 01:36] LABS: MANUAL DIFF FLAG NO
[2022-12-15 01:39] LABS: Basophils Percent Auto 0.4 % (0-2); Eosinophils Absolute Auto 0.1 X10*3/uL (0.0-0.4); Hematocrit 40.3 % (37.0-47.0); Hemoglobin 13.3 g/dl (12.0-16.0); Imm Gran Abs Auto 0.02 X10*3/uL (0.00-0.03); Imm Gran Pct Auto 0.4 % (0.0-0.4); Lymphocytes Absolute Auto 2.1 X10*3/uL (1.2-4.9); Lymphocytes Percent Auto 45.7 % (20-40); Mean Corpuscular Hemoglobin 31.1 pg (27.0-33.0); Mean Corpuscular Volume 94.4 fL (80.0-98.0); Mean Platelet Volume 9.5 fL (9.4-12.3); Monocytes Absolute Auto 0.5 X10*3/uL (0.1-1.2); Monocytes Percent Auto 10.8 % (2-11); Neutrophils Absolute Auto 1.8 x10*3/uL (2.0-8.3); Neutrophils Percent Auto 39.7 % (45-73); Platelet Count 293 X10*3/uL (160-400); Red Blood Count 4.27 X10*6/uL (4.20-5.50); Red Cell Distribution Width 13.1 % (11.0-16.0); White Blood Count 4.6 X10*3/uL (4.8-10.8)
[2022-12-15 01:45] LABS: Prothrombin Time 12.5 SEC (11.1-13.3)
[2022-12-15 04:25] LABS: Appearance Urine Clear; Color Urine Yellow; Glucose Urine UA Negative (Negative); Leukocyte Esterase Urine Negative (Negative); Nitrite Urine Negative (Negative); PH 7.5 (5.0-9.0); Specific Gravity - Urine >= 1.030 (1.005-1.025); Urine Blood Negative (Negative); Urine Ketones Negative (Negative); Urine Protein Negative (Neg-Trace)
[2022-12-15 04:35] LABS: Amphetamine Screen Urine Not Detected (Not Detect); Barbiturates, Urine Not Detected (Not Detect); Benzodiazepines Screen Urine Not Detected (Not Detect); Cannabinoid Screen Urine Not Detected (Not Detect); Cocaine Screen Urine Not Detected (Not Detect); Fentanyl, urine Not Detected (Not Detect); Opiate Screen Urine Not Detected (Not Detect); Phencyclidine Screen Urine Not Detected (Not Detect)
[2022-12-15 06:11] LABS: Glucose, Whole Blood 141 mg/dL (60-115)
--- NOTE | 2022-12-15 06:24 | P.HPHOSP_ITS ---
History of Present Illness Date of Service: 12/15/22 Chief Complaint: left sided weakness 63-year-old female with past medical history of AFib, bipolar disorder, history of cardiomyopathy, GERD, multiple TIA/CVA, comes into the hospital with complaints of left-sided weakness. Of note patient is currently being worked up for possible MS with an appointment with Neurology upcoming. Patient reports that she was out running errands when she got home she felt very weird, dizzy, with left-sided weakness. Patient reports that her weakness is in her arms and legs, as well as left eye vision change with no pain. Episode lasted until she came to the hospital, she still reports that she has slight weakness in her left side. Patient also reports a history of cervical arthritis with myopathy with planned surgery near future. Otherwise denies any shortness of breath, no headache, no abdominal pain nausea or vomiting no diarrhea constipation, no urinary symptoms and no lower extremity edema On arrival to the ED hemodynamically stable slightly elevated blood pressure Labs are significant for WBC count of 4.6, labs otherwise unremarkable, UA negative, urine drug screen negative Head CT shows no acute intracranial pathology Patient will be admitted for further management Review of Systems Review of Systems: Yes all other systems are reviewed and are negative [facility] Medical History Anemia Anxiety Atrial fibrillation Bipolar disease, manic Cardiac microvascular disease Cardiomyopathy Cervical spondylosis Chronic headaches Fatigue GERD (gastroesophageal reflux disease) Insomnia Lumbar spondylosis Obstructive sleep apnea Occasional tremors Restless legs syndrome (RLS) Spinal stenosis in cervical region TIA (transient ischemic attack) Family History Father Dementia Cancer Mother Cancer COPD (chronic obstructive pulmonary disease) Multiple sclerosis Daughter Myasthenia Surgical History H/O: knee surgery History of carpal tunnel release Hx of appendectomy Hx of cervical spine surgery Hx of cholecystectomy Hx of shoulder surgery Social History Alcohol intake: never Patient Tobacco Use Status: Never used Tobacco Smoked in Last 30 Days: No Use of substances other than those prescribed or required for medical reasons: No Advance Directives: No Advance Directives Information Provided: No Meds Allergies Allergy/AdvReac Type Severity Reaction Status Date / Time penicillin G [Penicillin G] Allergy Mild RASH Verified 11/25/22 09:03 acetaminophen Allergy Unknown Abdominal Verified 11/25/22 09:03 [Tylenol-Codeine #3] Pain penicillin V Allergy Unknown Abdominal Verified 11/25/22 09:03 Pain codeine [Codeine] AdvReac Mild SEVERE Verified 11/25/22 09:03 ABDOMINAL PAIN Active Medications: Current Medications Aspirin (Aspirin Enteric Coated 81 Mg Tablet.Dr) 81 mg PO DAILY DAMIAN Atorvastatin Calcium (Atorvastatin Calcium 80 Mg Tablet) 80 mg PO BEDTIME DAMIAN Ondansetron HCl (Ondansetron Hcl 4 Mg/2 Ml Vial) 4 mg IVPUSH Q8H PRN PRN Reason: Nausea and Vomiting Home Medications Medication Instructions Recorded Confirmed Last Taken Type apixaban 5 mg tablet (Eliquis) 5 mg PO BID 08/14/22 10/16/22 Unknown History biotin 5,000 mcg disintegrating 10,000 mcg PO DAILY 08/14/22 10/16/22 Unknown History tablet cholecalciferol (vitamin D3) 1,250 1,250 mcg PO QWEEK 08/14/22 10/16/22 Unknown History mcg (50,000 unit) oral wafer estradiol 0.075 mg/24 hr weekly 1 patch transdermal QWEEK 08/14/22 10/16/22 Unknown History transdermal patch gabapentin 600 mg tablet See Rx Instructions PO .COMPLEX 08/14/22 10/16/22 Unknown History lorazepam 2 mg tablet 2 mg PO TID PRN 08/14/22 10/16/22 Unknown History methylphenidate HCl 20 mg tablet 20 mg PO TID 08/14/22 10/16/22 Unknown History omeprazole 20 mg capsule,delayed 20 mg PO DAILY 08/14/22 10/16/22 Unknown History release valacyclovir 1 gram tablet 1,000 mg PO DAILY 08/14/22 10/16/22 Unknown History lamotrigine 200 mg tablet,extended 400 mg PO 11/20/22 Unknown History release 24 hr Physical Exam Vital Signs and Narrative: Vital Signs: Last Vital Signs Temp 97.9 F 12/15/22 04:00 Pulse 84 12/15/22 04:00 Resp 15 12/15/22 04:00 BP 133/71 12/15/22 04:00 Pulse Ox 98 12/15/22 04:00 O2 Del Method Room Air 12/15/22 04:00 BMI result Body Mass Index 26.3 Const: Other: Sleepy but arousable, answers questions appropriately General: cooperative and no acute distress Orientation/consciousness: patient oriented x3 Eyes: General: appearance normal, both eyes and all related structures Resp: Effort & Inspection: normal respiratory effort Auscultation: clear to auscultation bilaterally Cardio: Rate: regular rate Rhythm: regular rhythm GI: Palpation (GI): Soft to palpation Auscultation: normal bowel sounds Skin: General skin exam: no rashes or lesions noted Neuro: Other: Strength 5/5 in all extremities, cranial nerve 2-12 intact, Slight nystagmus on horizontal vision General: patient oriented x3 Cognition (Neuro): normal cognition Extrem: General: Yes normal to inspection and Yes no pedal edema Results Labs 12/15/22 01:13 12/15/22 00:58 Labs: Laboratory Results - last 24 hr 12/14/22 12/15/22 12/15/22 23:40 00:58 01:13 MCV 94.4 MCH 31.1 MCHC 33.0 RDW 13.1 Plt Count 293 MPV 9.5 Immature Gran % (Auto) 0.4 Neut % (Auto) 39.7 L Lymph % (Auto) 45.7 H [place] % (Auto) 10.8 Eos % (Auto) 3.0 Baso % (Auto) 0.4 Lymph # (Auto) 2.1 [place] # (Auto) 0.5 Eos # (Auto) 0.1 Baso # (Auto) 0.0 Abs Immat Gran (auto) 0.02 Absolute Neuts (auto) 1.8 L Absolute Nucleated RBC 0.000 Nucleated RBC % (auto) 0.0 PT INR Anion Gap 12 Estim Creat Clear Calc 80.2 Estimated GFR > 60 POC Glucose 101 Random Glucose 100 Calcium 9.1 Magnesium 2.0 Total Bilirubin 0.4 Direct Bilirubin 0.1 AST 22 ALT 13 Alkaline Phosphatase 65 Total Protein 6.7 Albumin 3.8 Urine Color Urine Appearance Urine pH Ur Specific [place] Urine Protein Urine Glucose (UA) Urine Ketones Urine Blood Urine Nitrite Ur Leukocyte Esterase Urine Opiates Screen Urine Fentanyl Screen Ur Barbiturates Screen Ur Phencyclidine Scrn Ur Amphetamines Screen U Benzodiazepines Scrn Urine Cocaine Screen U Marijuana (THC) Screen Ethyl Alcohol < 10 12/15/22 12/15/2212/15/23 01:13 04:13 04:13 MCV MCH MCHC RDW Plt Count MPV Immature Gran % (Auto) Neut % (Auto) Lymph % (Auto) [place] % (Auto) Eos % (Auto) Baso % (Auto) Lymph # (Auto) [place] # (Auto) Eos # (Auto) Baso # (Auto) Abs Immat Gran (auto) Absolute Neuts (auto) Absolute Nucleated RBC Nucleated RBC % (auto) PT 12.5 INR 1.0 Anion Gap Estim Creat Clear Calc Estimated GFR POC Glucose Random Glucose Calcium Magnesium Total Bilirubin Direct Bilirubin AST ALT Alkaline Phosphatase Total Protein Albumin Urine Color Yellow Urine Appearance Clear Urine pH 7.5 Ur Specific [place] >= 1.030 H Urine Protein Negative Urine Glucose (UA) Negative Urine Ketones Negative Urine Blood Negative Urine Nitrite Negative Ur Leukocyte Esterase Negative Urine Opiates Screen Not Detected Urine Fentanyl Screen Not Detected Ur Barbiturates Screen Not Detected Ur Phencyclidine Scrn Not Detected Ur Amphetamines Screen Not Detected U Benzodiazepines Scrn Not Detected Urine Cocaine Screen Not Detected U Marijuana (THC) Screen Not Detected Ethyl Alcohol 12/15/22 06:05 MCV MCH MCHC RDW Plt Count MPV Immature Gran % (Auto) Neut % (Auto) Lymph % (Auto) [place] % (Auto) Eos % (Auto) Baso % (Auto) Lymph # (Auto) [place] # (Auto) Eos # (Auto) Baso # (Auto) Abs Immat Gran (auto) Absolute Neuts (auto) Absolute Nucleated RBC Nucleated RBC % (auto) PT INR Anion Gap Estim Creat Clear Calc Estimated GFR POC Glucose 141 H Random Glucose Calcium Magnesium Total Bilirubin Direct Bilirubin AST ALT Alkaline Phosphatase Total Protein Albumin Urine Color Urine Appearance Urine pH Ur Specific [place] Urine Protein Urine Glucose (UA) Urine Ketones Urine Blood Urine Nitrite Ur Leukocyte Esterase Urine Opiates Screen Urine Fentanyl Screen Ur Barbiturates Screen Ur Phencyclidine Scrn Ur Amphetamines Screen U Benzodiazepines Scrn Urine Cocaine Screen U Marijuana (THC) Screen Ethyl Alcohol Imaging Radiologist's Impressions: Impressions Head CT 12/14/22 23:46 IMPRESSION: No acute intracranial pathology. This critical result was discussed with Dr. Lewis at 11:52 PM hours on 12/14/2022. It was ascertained that the content and urgency of the report was understood at the time of direct communication. Assessment and Plan (1) CVA (cerebral vascular accident): Status: Acute Plan 62-year-old female with past medical history of CVA come to the hospital with complaints of left-sided rib and vision change # CVA versus a mass - patient is being worked up for MS outpatient although her symptoms sound more like CVA than MS, will obtain MRI brain with and without contrast as well as cervical MRI with and without contrast - patient received high-dose of steroids in the ED - will place on aspirin and high statin - monitor on telemetry # history of CVA - reportedly takes Eliquis for the recurrent episodes - continue # bipolar disorder - continue mood stabilizer # GERD - continue PPI Patient takes various medications, pending med review DVT prophylaxis: Eliquis Time Spent With Patient Time: Total time managing care of this patient today ____ minutes. Quality Stroke Does the patient have a stroke diagnosis?: No VTE Prior VTE?: No VTE Risk Level:: Medical - low VTE Device Contraindication: Treatment Not Indicated VTE Drug Contraindication: Treatment Not Indicated
--- NOTE | 2022-12-15 06:37 | PC.NURSE ---
second swallow eval completed. PT did not pass. notified
[2022-12-15 06:54] LABS: MANUAL DIFF FLAG NO
--- NOTE | 2022-12-15 07:00 | PC.NURSE ---
Addendum entered by Heidy Barragan 12/15/22 09:13: neuros intact. Original Note: pt axox4, vss, nsr on monitor 90 bpm, respirations even and unlabored, sats 97% RA, skin wpd. pt denies pain upon assessment. pt denies questions/concerns at this time. aware of plan of care. call serrano within reach.
[2022-12-15] MEDS: traMADoL HCL 50 MG TABLET PO ×2 (07:02→16:22)
[2022-12-15 07:04] LABS: Eosinophils Percent Auto 0.2 % (0-4); Hematocrit 39.6 % (37.0-47.0); Hemoglobin 13.4 g/dl (12.0-16.0); Imm Gran Abs Auto 0.01 X10*3/uL (0.00-0.03); Imm Gran Pct Auto 0.2 % (0.0-0.4); Lymphocytes Absolute Auto 0.6 X10*3/uL (1.2-4.9); Mean Corpuscular HGB Conc 33.8 g/dl (31.0-35.0); Mean Corpuscular Hemoglobin 31.9 pg (27.0-33.0); Mean Corpuscular Volume 94.3 fL (80.0-98.0); Mean Platelet Volume 9.6 fL (9.4-12.3); Monocytes Percent Auto 0.9 % (2-11); Neutrophils Absolute Auto 3.8 x10*3/uL (2.0-8.3); Neutrophils Percent Auto 84.7 % (45-73); Platelet Count 320 X10*3/uL (160-400); Red Cell Distribution Width 12.9 % (11.0-16.0); White Blood Count 4.5 X10*3/uL (4.8-10.8)
[2022-12-15 07:32] LABS: Anion Gap 12 (12-20); Blood Urea Nitrogen 10 mg/dL (9-16); Carbon Dioxide 24 mmol/L (22-29); Chloride 107 mmol/L (96-108); Creatinine Clr Calc Pharmacy 86.6; Estimated Glomerular Filt Rate > 60; Glucose Random 146 mg/dL (60-115); Sodium 139 mmol/L (135-145)
--- NOTE | 2022-12-15 09:01 | PHA.MEDREC ---
Pharmacy Consult ? Medication Reconciliation Pharmacy has completed the medication reconciliation. Spoke to patient to confirm meds.
[2022-12-15] MEDS: Aspirin Enteric Coated 81 MG TABLET.DR PO (09:10)
--- NOTE | 2022-12-15 09:13 | PC.NURSE ---
neuros remain intact; strength equal BUE & BLE. pt speaking full clear sentences. axox4. vss. nsr on monitor 84 bpm. repsirations even and unlabored. sats 97% RA. all needs met at this time; awaiting bed assignment. call serrano within reach.
--- NOTE | 2022-12-15 10:31 | MHC.STROKE ---
12/14/22 2331 EMS PRE-NOTIFIED STROKE ALERT ONSET 45 MIN [employer] ME[employer]IC, ARRIVED AT [facility] 2336. SEEN BY PROVIDER, NIHSS = 1,STROKE PROTOCOL ACTIVATED. CT AND CTA H/N DONE. NO BLEED, NO LVO. ECLUDED FROM TPA ON ELIQUIS. FAILED NURSING SWALLOW SCREEN. I DID CALL ED THIS AM AND ASKED THEM TO NOTIFY SPEECH TX. IT IS DOCUMENTED THAT NEUROLOGY CONSULT WAS CALLED IN. I WILL CONTINUE TO FOLLOW.
--- NOTE | 2022-12-15 10:58 | PC.NURSE ---
Provider notified pt going to MRI, gave the okay to be transported with no ekg monitor tech in place. Pt removed from monitor and brought to MRI by transport.
[2022-12-15] MEDS: gadobutroL 7.5 ML VIAL IVPUSH (12:05)
--- NOTE | 2022-12-15 12:43 | MHC.SLORD ---
Speech Language Pathology Order Status: Attempted X2 to see patient for Clinical Swallow this AM. Patient was taken to MRI at onset of first visit, still there midday at second. Patient reported HX swallowing difficulty, had MBSS done at [facility] with pharyngeal phase dysphagia dx, advised to eat softer foods, alternate with sips of liquid. ODD SHOE EXAMINER will evaluated tomorrow AM if patient available.
--- NOTE | 2022-12-15 12:58 | PC.NURSE ---
Addendum entered by Heidy Barragan 12/15/22 14:42: neuros intact; no changes since previous assessment. Original Note: pt return from mri. nsr on monitor 82 bpm. respirations even and unlabored sats 96% RA. pt denies pain at this time. pt denies questions/concerns at this time. aware of pharmacy unavailability of estrodial patch and lamotrigine; contacting family member to bring in from home. all needs met at this time; call serrano within reach.
--- NOTE | 2022-12-15 13:55 | PM.EVENT ---
Event Note Date of Service: 12/15/22 Event Note: This patient is seen and examined already by hospitalist team this morning, seen and examined again-clinically similar as per H& P. came to hospital for dizzines and left sided weakness -she says her symptoms improving Physical exam and assessment and plan coordinated in H&P note Agree with the plan in addition: question of cva vs MS . received steriods in ed,placed on asa/statin afterwards mri ,neurology eval d/w staff. Time Spent With Patient Time: Total time managing care of this patient today ____ minutes.
[2022-12-15] MEDS: Baclofen 20 MG TABLET PO (14:37)
[2022-12-15] MEDS: Gabapentin 600 MG TABLET 300 MG PO (14:37)
--- NOTE | 2022-12-15 15:47 | PC.NURSE ---
report given to [facility] nurse valenzuela.
[2022-12-15] MEDS: Gabapentin 600 MG TABLET 1200 MG PO (18:13)
[2022-12-15] MEDS: Cyclobenzaprine HCl 10 MG TABLET PO (18:13)
[2022-12-15] MEDS: Apixaban 5 MG TABLET PO (18:13)
[2022-12-15] MEDS: LORazepam 1 MG TABLET PO (23:27)
[2022-12-16] VITALS (9 sets, daily range): BP systolic 104–163; BP diastolic 53–84; PULSE 74–84; RESP 15–20; TEMP 36.1–36.6; O2SAT 94–100; BMI 26.3
--- NOTE | 2022-12-16 | EEG_ITS ---
INTREPRETATION: This is a 16-channel EEG with an EKG lead. The patient is reported awake during the tracing. Background EEG rhythm is theta amplitude fast with no obvious asymmetry or paroxysmal tendency. Photic stimulation does not produce any significant abnormality. Hyperventilation is not performed. Cardiac lead does not reveal any significant abnormality. Some lead and muscle artifacts are noted. IMPRESSION: No significant abnormality noted on this EEG. MD REMINGTON Au/NEWTON / [id number]
--- NOTE | 2022-12-16 02:20 | PC.NURSE ---
Assumed care at 19:00 on 12/15. Pt seen on s4 as med-surg pt. A&Ox4. Neuros intact, on q4h neuro assessments as ordered (see for full details). Denies headache, dizziness, and vision changes. +pp/cms. -edema. Denies chest pain. LSCTA on RA with even and unlabored breathing. NPO pending swallow eval diet orders in place. Per report pt failed bedside swallow x2 recently. Aspiration precautions in place. Covering Dr. Graham notified and clarification for po meds requested, with written orders for pt okay for meds crushed in applesauce which pt tolerated without any issue. Denies pain. Resting in bed most of shift. Pt transferred to s3 at 02:00 12/16, report called.
[2022-12-16] MEDS: Omeprazole 20 MG CAPSULE.DR PO (05:28)
[2022-12-16 07:44] LABS: Prothrombin Time Whole Bld POC 13.6 sec (11.1-13.5); ~PT, ~INR - Anti Coag Clinic 1.1 (0.9-1.1)
[2022-12-16 08:40] LABS: Cholesterol 245 mg/dL; HDL Cholesterol 67 mg/dL; LDL Cholesterol Calculated 148 mg/dl; Triglycerides 152 mg/dL
[2022-12-16] MEDS: Apixaban 5 MG TABLET PO ×2 (09:53→18:27)
[2022-12-16] MEDS: Baclofen 20 MG TABLET PO ×2 (09:53→14:26)
[2022-12-16] MEDS: Gabapentin 600 MG TABLET 300 MG PO ×2 (09:53→14:26)
[2022-12-16] MEDS: valACYclovir HCL 1,000 MG TABLET 1000 MG PO (09:54)
[2022-12-16] MEDS: Lactated Ringers 1,000 ML 80 ML IVCONT ×2 (09:54→22:53)
--- NOTE | 2022-12-16 10:27 | MHC.CM.PN ---
BUCKNER 12/16/22 DX TIA She lives with another person. PMX CVA L sided residual weakness. She receives assist from [facility] 5 hours 3 x a week. Prior to this admit she was being set up for o/p OT @ [facility]. PCP Dr Gustavo Suarez. A copy of pts HCP has been requested. DP ACUTE rehab vs Home resumption of services NET APPLICATION SUPPORT SPECIALIST o/p OT. PT and OT evaluations will be needed to assist with Dispo. Patient states that she has a ride home. BLS will be set up if the patient discharges to Acute rehab.
--- NOTE | 2022-12-16 11:03 | P.CNNE_ITS ---
History of Present Illness Data of Consult Service Date: 12/16/22 Primary Care Provider: Unknown Physician HPI Reason for consult: Multiple symptoms 62 years old woman with history of mid cervical fusion I was asked to see for possibility of stroke. When I asked her what brought her to hospital, she reported set of symptoms, which according to her head affected her few times in the past, about once every few weeks to months. She said that she would get lethargic or weak all over with blurred vision and sometime pain in and around left eye with difficulty speaking and maybe some confusion. Did this would last for hours. She has been seen by Dr. Zhang in the past for restless leg syndrome and had seen Dr. Dooley but his workup was not available. Review of Systems Review of Systems: No recent cold or flu-like PMFSH Past Medical History Medical History Anemia Anxiety Atrial fibrillation Bipolar disease, manic Cardiac microvascular disease Cardiomyopathy Cervical spondylosis Chronic headaches Fatigue GERD (gastroesophageal reflux disease) Insomnia Lumbar spondylosis Obstructive sleep apnea Occasional tremors Restless legs syndrome (RLS) Spinal stenosis in cervical region TIA (transient ischemic attack) Family History Family History Father Dementia Cancer Mother Cancer COPD (chronic obstructive pulmonary disease) Multiple sclerosis Daughter Myasthenia Surgical History Surgical History H/O: knee surgery History of carpal tunnel release Hx of appendectomy Hx of cervical spine surgery Hx of cholecystectomy Hx of shoulder surgery Social History Social History Household Members: Significant Other Housing: House Alcohol intake: never Patient Tobacco Use Status: Never used Tobacco service: No Meds Allergies Allergy/AdvReac Type Severity Reaction Status Date / Time penicillin G [Penicillin G] Allergy Mild RASH Verified 11/25/22 09:03 acetaminophen Allergy Unknown Abdominal Verified 11/25/22 09:03 [Tylenol-Codeine #3] Pain penicillin V Allergy Unknown Abdominal Verified 11/25/22 09:03 Pain codeine [Codeine] AdvReac Mild SEVERE Verified 11/25/22 09:03 ABDOMINAL PAIN Active Medications: Current Medications Apixaban (Apixaban 5 Mg Tablet) 5 mg PO BID@0900,1900 [facility] Last Admin: 12/16/22 09:53 Dose: 5 mg Atorvastatin Calcium (Atorvastatin Calcium 80 Mg Tablet) 80 mg PO BEDTIME [facility] Last Admin: 12/15/22 21:24 Dose: Not Given Baclofen (Baclofen 20 Mg Tablet) 20 mg PO BID@0900,1400 [facility] Last Admin: 12/16/22 09:53 Dose: 20 mg Cyclobenzaprine HCl (Cyclobenzaprine Hcl 10 Mg Tablet) 10 mg PO DAILY@1900 [facility] Last Admin: 12/15/22 18:13 Dose: 10 mg Ergocalciferol (Ergocalciferol (Vitamin D2) 1,250 Mcg Capsule) 1,250 mcg PO Q1 4D [facility] Gabapentin (Gabapentin 600 Mg Tablet) 300 mg PO BID@0900,1400 [facility] Last Admin: 12/16/22 09:53 Dose: 300 mg Gabapentin (Gabapentin 600 Mg Tablet) 1,200 mg PO DAILY@1900 [facility] Last Admin: 12/15/22 18:13 Dose: 1,200 mg Lactated Ringer's (Lr) 1,000 mls @ 80 mls/hr IVCONT .[id number] [facility] Last Admin: 12/16/22 09:54 Dose: 80 mls/hr Lorazepam (Lorazepam 1 Mg Tablet) 1 mg PO DAILY@2300 [facility] Last Admin: 12/15/22 23:27 Dose: 1 mg Methylphenidate HCl (Methylphenidate Hcl 10 Mg Tablet) 20 mg PO TID PRN PRN Reason: FATIGUE/CONFUSION Pt Own (Estradiol 0. 075 Mg/24 Hr Patch Weekly) 1 patch TRANSDERMA WE@0900 [facility] Last Admin: 12/16/22 10:26 Dose: 1 patch Pt Own (Lamotrigine 200 Mg Tablet Extended Release 24hr) 400 mg PO DAILY [facility] Last Admin: 12/16/22 09:53 Dose: 400 mg Omeprazole (Omeprazole 20 Mg Capsule.Dr) 20 mg PO DAILY@0630 [facility] Last Admin: 12/16/22 05:28 Dose: 20 mg Ondansetron HCl (Ondansetron Hcl 4 Mg/2 Ml Vial) 4 mg IVPUSH Q8H PRN PRN Reason: Nausea and Vomiting Valacyclovir HCl (Valacyclovir Hcl 1,000 Mg Tablet) 1,000 mg PO DAILY [facility] Last Admin: 12/16/22 09:54 Dose: 1,000 mg Home Medications Medication Instructions Recorded Confirmed Last Taken Type apixaban 5 mg tablet (Eliquis) 5 mg PO BID@0900,1900 08/14/22 12/15/22 12/14/22 History biotin 5,000 mcg disintegrating 10,000 mcg PO DAILY 08/14/22 12/15/22 12/14/22 History tablet estradiol 0.075 mg/24 hr weekly 1 patch transdermal WE@0900 08/14/22 12/15/22 12/11/22 History transdermal patch gabapentin 600 mg tablet 1,200 mg PO DAILY@1900 08/14/22 12/15/22 12/14/22 History methylphenidate HCl 20 mg tablet 20 mg PO TID PRN FATIGUE/CONFUSION 08/14/22 12/15/22 Unknown History omeprazole 20 mg capsule,delayed 20 mg PO DAILY@0630 08/14/22 12/15/22 12/14/22 History release lamotrigine 200 mg tablet,extended 400 mg PO DAILY 11/20/22 12/15/22 12/14/22 04:00 History release 24 hr baclofen 20 mg tablet 20 mg PO BID@0900,1400 12/15/22 12/15/22 12/14/22 History cyclobenzaprine 10 mg tablet 10 mg PO DAILY@1900 12/15/22 12/15/22 12/14/22 History ergocalciferol (vitamin D2) 1,250 1,250 mcg PO Q2W 12/15/22 12/15/22 12/08/22 History mcg (50,000 unit) capsule gabapentin 600 mg tablet 300 mg PO BID@0900,1400 12/15/22 12/15/22 12/14/22 History lorazepam 2 mg tablet 1 mg PO DAILY@2300 12/15/22 12/15/22 12/14/22 History valacyclovir 500 mg tablet 1,000 mg PO DAILY 12/15/22 12/15/22 12/14/22 History Physical Exam Vital Signs: Vital Signs: Last Vital Signs Temp 96.9 F 12/16/22 07:54 Pulse 79 12/16/22 10:55 Resp 15 12/16/22 07:54 BP 144/84 H 12/16/22 10:55 Pulse Ox 97 12/16/22 07:54 O2 Del Method Room Air 12/16/22 07:54 BMI result Body Mass Index 26.3 Neuro: Other: She is alert and awake with normal spontaneity of speech fluency comprehension a nd affect. It was fine until I started talking about differential diagnosis an possibility that test sometime stress could create her make this type of symptoms worse when she became quite defensive and stated that I should not be talking about that. Face was symmetrical. Visual milner are full. There was no nystagmus. Pupils were round reactive. [id number] testing was normal. Deep tendon reflexes were trace to absent with flexor plantars. Speech was normal. Results Labs 12/15/22 06:18 12/15/22 06:18 Labs: MRI of brain revealed few tiny nonspecific white matter signal abnormalities, which is not suggestive of demyelinating disease. Cervical spine MRI revealed evidence of previous fusion and moderate to severe stenosis of spinal can all above and below that fusion but no obvious cord signal abnormality. Assessment and Plan (1) Encephalopathy: Status: Acute 62 years old woman who provided details of her symptoms that have affected her an episode and fashion during last few months. The set of symptoms are localized to brain and not to 1 particular area or to 1 side. Her imaging is not consistent with diagnosis of multiple sclerosis. She has moderate to severe cervical spinal stenosis but no obvious cord signal abnormality and no upper motor neuron signs on examination. This could cause some neck discomfort or pain but would not explain other symptoms. There is no sign of stroke either. Potential etiology of her set of symptoms included complex partial seizure disorder, for which an EEG is recommended, anxiety/psychosomatic condition, or migraine. I had a dang discussion with her explaining all these possibilities. If EEG shows epileptic discharges, appropriate medicine is recommended. If EEG investigation is negative specially during that time when she is having this type of symptoms, treatment for migraine can be considered. At the same time counseling and therapy and reassurance and education is required for management of associated stress and anxiety Time Spent With Patient Time: Total time managing care of this patient today ____ minutes. Procedures Date of Service Date of Service: 12/16/22
--- NOTE | 2022-12-16 12:17 | MHC.SL.SWA ---
Speech Pathologist Impression: Risk of Aspiration Due to: Neurological Condition Dysphasia Diet Status: Liquid Consistency and Strategies for Safe Swallow: Liquid Intake Recommendation: Thin Liquid Intake Strategies: Small Sips Solid Food Consistency: Dietary Recommendations: Regular Additional Modifications to Solid Foods: Patient is able to eat independently. Patient reports avoidng difficulty to chew solids. Recommended that patient choose preferred foods from Regular menu. Patient reports preference of taking meds whole with pudding or puree. Oral Medication Intake: Whole with Puree Please contact the pharmacy regarding appropriate crushable or liquid drug formulations that are available whenever modified delivery is recommended. Compensatory Strategies and Precautions to be Taken for Safe Swallow: Sitting Upright (90 deg) Liquids from Cup Small Bites and Sips Alternate Liquids/Solids Rate of Ingestion Change Supervision While Eating and Drinking for Safe Swallow: None Needed Foods to Avoid: Tough, difficult to chew solids. Swallowing Recommended Treatments: Compens. Strategy Educat. Recommendation for Speech: Inpatient Speech Therapy Comment: Patient presents with history of mild pharyngeal phase of swallow issues per self report of results of MBSS study done at [facility] this year. At bedside, patient presents with swallow mostly WFL, with mild issues related to careful swallowing (occasional double swallow, throat clearing) noted and prolonged mastication of more advanced solids. Recommend patient START diet of REGULAR with THIN LIQUIDS, PILLS WHOLE with PUREE. Patient reports this is baseline, with care in choosing foods that are not difficult to chew or dry/crunchy. Patient was advised to choose preferred foods from Regular menu. , RD, Stroke RN notified of recommendations by secure text, RN in person. DOOR REPAIRER BUS will f/u X1 for toleration of diet. Frequency/Duration: Date Range for Service Req: Timeline to reassess: Dinking Machine Operator Clinican/Clinical Fellow: No Supervisory Statement: I have reviewed and agree with the student/clinical fellow's documentation: N/A Speech Language Pathologist: Kierra Elizabeth M.A., CCC-DOOR REPAIRER BUS
--- NOTE | 2022-12-16 18:02 | P.PNIM_ITS ---
Subjective Subjective Date of Service: 12/17/22 Interval History: left sided weakness Review of Systems Seems to be improved, denies any chest pain or shortness of breath or abdominal pain or fever chills. Physical Exam Vital Signs: Vital Signs: Last Vital Signs Temp 97.7 F 12/16/22 16:00 Pulse 83 12/16/22 16:00 Resp 20 12/16/22 16:00 BP 134/65 12/16/22 16:00 Pulse Ox 97 12/16/22 16:00 O2 Del Method Room Air 12/16/22 16:00 BMI result Body Mass Index 26.3 Appearance: Alert.? Oriented X3.? not in distress.? cvs: rrr, [id number] . res: clear to auscultation ,no rhonchii or wheezing abd: no rebound or guarding ,nt, bs present. ext pulses present , no cyanosis . neuro: axo3 , nonfocal. Objective Data Active Medications Apixaban (Apixaban 5 Mg Tablet) 5 mg PO BID@0900,1900 [facility] Last Admin: 12/16/22 09:53 Dose: 5 mg Documented By: ELSIE Atorvastatin Calcium (Atorvastatin Calcium 80 Mg Tablet) 80 mg PO BEDTIME [facility] Last Admin: 12/15/22 21:24 Dose: Not Given Documented By: ENMANUEL Non-Admin Reason: pt refused. states no longer takes Baclofen (Baclofen 20 Mg Tablet) 20 mg PO BID@0900,1400 [facility] Last Admin: 12/16/22 14:26 Dose: 20 mg Documented By: ELSIE Cyclobenzaprine HCl (Cyclobenzaprine Hcl 10 Mg Tablet) 10 mg PO DAILY@1900 [facility] Last Admin: 12/15/22 18:13 Dose: 10 mg Documented By: JOEY Ergocalciferol (Ergocalciferol (Vitamin D2) 1,250 Mcg Capsule) 1,250 mcg PO Q14D [facility] Gabapentin (Gabapentin 600 Mg Tablet) 300 mg PO BID@0900,1400 [facility] Last Admin: 12/16/22 14:26 Dose: 300 mg Documented By: COTEMA Gabapentin (Gabapentin 600 Mg Tablet) 1,200 mg PO DAILY@1900 [facility] Last Admin: 12/15/22 18:13 Dose: 1,200 mg Documented By: JOEY Lactated Ringer's (Lr) 1,000 mls @ 80 mls/hr IVCONT .[id number] [facility] Last Admin: 12/16/22 09:54 Dose: 80 mls/hr Documented By: ELSIE Lorazepam (Lorazepam 1 Mg Tablet) 1 mg PO DAILY@2300 [facility] Last Admin: 12/15/22 23:27 Dose: 1 mg Documented By: ENMANUEL Methylphenidate HCl (Methylphenidate Hcl 10 Mg Tablet) 20 mg PO TID PRN PRN Reason: FATIGUE/CONFUSION Pt Own (Estradiol 0. 075 Mg/24 Hr Patch Weekly) 1 patch TRANSDERMA WE@0900 [facility] Last Admin: 12/16/22 10:26 Dose: 1 patch Documented By: ELSIE Pt Own (Lamotrigine 200 Mg Tablet Extended Release 24hr) 400 mg PO DAILY [facility] Last Admin: 12/16/22 09:53 Dose: 400 mg Documented By: ELSIE Omeprazole (Omeprazole 20 Mg Capsule.Dr) 20 mg PO DAILY@0630 [facility] Last Admin: 12/16/22 05:28 Dose: 20 mg Documented By: ANNA Ondansetron HCl (Ondansetron Hcl 4 Mg/2 Ml Vial) 4 mg IVPUSH Q8H PRN PRN Reason: Nausea and Vomiting Valacyclovir HCl (Valacyclovir Hcl 1,000 Mg Tablet) 1,000 mg PO DAILY [facility] Last Admin: 12/16/22 09:54 Dose: 1,000 mg Documented By: ELSIE Labs 12/15/22 06:18 12/15/22 06:18 Labs: Laboratory Results - last 24 hr 12/15/22 12/16/22 00:08 07:56 Whole Blood PT 13.6 H Whole Blood INR 1.1 Triglycerides 152 Cholesterol 245 LDL Cholesterol, Calc 148 HDL Cholesterol 67 Assessment and Plan (1) Encephalopathy: Status: Acute Plan 62-year-old female with past medical history of CVA come to the hospital with complaints of left-sided rib and vision change question of CVA cta -neg MRI brain -seems grossly fine neuro eval noted -added eeg history of CVA- reportedly takes Eliquis for the recurrent episodes - continue bipolar disorder- continue mood stabilizer GERD- continue PPI PT-recomended acute rehab. DVT prophylaxis: Eliquis inaptent need:waiting for acute rehab. Time Spent With Patient Time: Total time managing care of this patient today ____ minutes. Quality Stroke Does the patient have a stroke diagnosis?: No VTE Prior VTE?: No VTE Risk Level:: Medical - low VTE Device Contraindication: Treatment Not Indicated VTE Drug Contraindication: Treatment Not Indicated
[2022-12-16] MEDS: Gabapentin 600 MG TABLET 1200 MG PO (18:26)
[2022-12-16] MEDS: Cyclobenzaprine HCl 10 MG TABLET PO (18:26)
[2022-12-16] MEDS: LORazepam 1 MG TABLET PO (22:53)
[2022-12-17 03:18] VITALS: BP 108/54; PULSE 86; RESP 18; TEMP 36.2; O2SAT 95
[2022-12-17] MEDS: Omeprazole 20 MG CAPSULE.DR PO (05:57)
[2022-12-17 07:43] VITALS: BP 135/65; PULSE 76; RESP 17; TEMP 36.8; O2SAT 99
[2022-12-17] MEDS: Baclofen 20 MG TABLET PO ×2 (08:01→13:25)
[2022-12-17] MEDS: Apixaban 5 MG TABLET PO ×2 (08:01→19:14)
[2022-12-17] MEDS: valACYclovir HCL 1,000 MG TABLET 1000 MG PO (08:01)
[2022-12-17] MEDS: Gabapentin 600 MG TABLET 300 MG PO ×2 (08:02→13:25)
[2022-12-17 11:40] VITALS: BP 133/63; PULSE 94; RESP 17; TEMP 36; O2SAT 100
--- NOTE | 2022-12-17 13:13 | HO.PM.IMPN ---
Subjective Subjective Date of Service: 12/18/22 Interval History: follow up Review of Systems Denies any new complaints Physical Exam Vital Signs: Vital Signs: Last Vital Signs Temp 96.8 F 12/17/22 11:40 Pulse 94 12/17/22 11:40 Resp 17 12/17/22 11:40 BP 133/63 12/17/22 11:40 Pulse Ox 100 12/17/22 11:40 O2 Del Method Room Air 12/17/22 11:40 BMI result Body Mass Index 26.3 Appearance: Alert.? Oriented X3.? not in distress.? cvs: rrr, [id number] . res: clear to auscultation ,no rhonchii or wheezing abd: no rebound or guarding ,nt, bs present. ext pulses present , no cyanosis . neuro: axo3 , moves all ext. Objective Data Active Medications Apixaban (Apixaban 5 Mg Tablet) 5 mg PO BID@0900,1900 REPLACED BY [facility] Last Admin: 12/17/22 08:01 Dose: 5 mg Documented By: AUSTIN Atorvastatin Calcium (Atorvastatin Calcium 80 Mg Tablet) 80 mg PO BEDTIME REPLACED BY [facility] Last Admin: 12/16/22 22:22 Dose: Not Given Documented By: BRIGHT Non-Admin Reason: Patient Refused Baclofen (Baclofen 20 Mg Tablet) 20 mg PO BID@0900,1400 REPLACED BY [facility] Last Admin: 12/17/22 08:01 Dose: 20 mg Documented By: AUSTIN Cyclobenzaprine HCl (Cyclobenzaprine Hcl 10 Mg Tablet) 10 mg PO DAILY@1900 REPLACED BY [facility] Last Admin: 12/16/22 18:26 Dose: 10 mg Documented By: ELSIE Ergocalciferol (Ergocalciferol (Vitamin D2) 1,250 Mcg Capsule) 1,250 mcg PO Q14D REPLACED BY [facility] Gabapentin (Gabapentin 600 Mg Tablet) 300 mg PO BID@0900,1400 REPLACED BY [facility] Last Admin: 12/17/22 08:02 Dose: 300 mg Documented By: AUSTIN Gabapentin (Gabapentin 600 Mg Tablet) 1,200 mg PO DAILY@1900 REPLACED BY [facility] Last Admin: 12/16/22 18:26 Dose: 1,200 mg Documented By: ELSIE Lorazepam (Lorazepam 1 Mg Tablet) 1 mg PO DAILY@2300 REPLACED BY [facility] Last Admin: 12/16/22 22:53 Dose: 1 mg Documented By: BRIGHT Methylphenidate HCl (Methylphenidate Hcl 10 Mg Tablet) 20 mg PO TID PRN PRN Reason: FATIGUE/CONFUSION Pt Own (Estradiol 0. 075 Mg/24 Hr Patch Weekly) 1 patch TRANSDERMA WE@0900 REPLACED BY [facility] Last Admin: 12/16/22 10:26 Dose: 1 patch Documented By: COTEMA Pt Own (Lamotrigine 200 Mg Tablet Extended Release 24hr) 400 mg PO DAILY REPLACED BY [facility] Last Admin: 12/17/22 08:01 Dose: 400 mg Documented By: AUSTIN Omeprazole (Omeprazole 20 Mg Capsule.Dr) 20 mg PO DAILY@0630 REPLACED BY [facility] Last Admin: 12/17/22 05:57 Dose: 20 mg Documented By: BRIGHT Ondansetron HCl (Ondansetron Hcl 4 Mg/2 Ml Vial) 4 mg IVPUSH Q8H PRN PRN Reason: Nausea and Vomiting Valacyclovir HCl (Valacyclovir Hcl 1,000 Mg Tablet) 1,000 mg PO DAILY REPLACED BY [facility] Last Admin: 12/17/22 08:01 Dose: 1,000 mg Documented By: AUSTIN Labs 12/15/22 06:18 12/15/22 06:18 Assessment and Plan (1) Encephalopathy: Status: Acute Plan 62-year-old female with past medical history of CVA come to the hospital with complaints of left-sided weakness and vision change ? left sided wekness resolved cta -neg ?MRI brain -seems grossly fine eeg-seems fine neuro eval noted - possible migraine or anxiety/psychosomatic condition. patient says she follows up otpatient counseling and therapy and reassurance and education is required for management of associated stress and anxiety. ?history of CVA- reportedly takes Eliquis for the recurrent episodes ?bipolar disorder- continue mood stabilizer ?GERD- continue PPI PT-recomended acute rehab. DVT prophylaxis: Eliquis inaptient need - awaiting rehab placement. Time Spent With Patient Time: Total time managing care of this patient today ____ minutes. Quality Stroke Does the patient have a stroke diagnosis?: No VTE Prior VTE?: No VTE Risk Level:: Medical - low VTE Device Contraindication: Treatment Not Indicated VTE Drug Contraindication: Treatment Not Indicated
--- NOTE | 2022-12-17 13:21 | PC.NURSE ---
Pt seen by MD and Neuro Surgery PA, after questions asked and answered. Pt agreeable to rehab.
[2022-12-17 15:13] VITALS: BP 155/77; PULSE 97; RESP 18; TEMP 36.1; O2SAT 99
--- NOTE | 2022-12-17 16:09 | MHC.SPEECHCO ---
PILOT CAN ROUTER continues to recommned Regular Solids and Thin Liquids at the patient's discretion. Pt expressed interest in pursuing repeat MBS and Dysphagia Therapy on an outpatient basis. No further PILOT CAN ROUTER intervention required at this level of care.
[2022-12-17] MEDS: Gabapentin 600 MG TABLET 1200 MG PO (19:14)
[2022-12-17] MEDS: Cyclobenzaprine HCl 10 MG TABLET PO (19:14)
[2022-12-17 19:50] VITALS: BP 134/65; PULSE 98; RESP 20; TEMP 36.4; O2SAT 100
[2022-12-17] MEDS: LORazepam 1 MG TABLET PO (22:47)
[2022-12-18 03:45] VITALS: BP 108/65; PULSE 75; RESP 18; TEMP 36.1; O2SAT 97
[2022-12-18] MEDS: Omeprazole 20 MG CAPSULE.DR PO (05:53)
[2022-12-18 07:22] VITALS: BP 104/55; PULSE 76; RESP 18; TEMP 36.3; O2SAT 99
[2022-12-18] MEDS: Baclofen 20 MG TABLET PO ×2 (08:02→13:04)
[2022-12-18] MEDS: valACYclovir HCL 1,000 MG TABLET 1000 MG PO (08:02)
[2022-12-18] MEDS: Apixaban 5 MG TABLET PO (08:03)
[2022-12-18] MEDS: Gabapentin 600 MG TABLET 300 MG PO ×2 (08:03→13:03)
--- NOTE | 2022-12-18 12:16 | PM.DS ---
DS: Providers Provider Date of Service: 12/18/22 Date of admission: 12/15/22 02:34 Date of discharge: 12/18/22 Primary care physician: Gustavo Suarez DO Consults: 12/15/22 02:34 Consult to Neurology Routine Consulting Provider: [facility] Reason for consultation: TIA vs MS? Has provider been notified: No Attending physician on discharge: Andres Mujica Discharging clinician: Andres Mujica DS: Diagnosis Discharge Diagnosis (1) Encephalopathy: Status: Acute DS: Summary Hospital Course Hospital Course: 62-year-old female with past medical history of CVA come to the hospital with multiple complaints-please see h&P note(extermity weakness left side and vision change.) hospital course: Patient was admitted initially came with complaining multiple complaints including left side weakness-workup including CTA MRI , EEG was done seems unrevealing. Subsequently she is asymptomatic,no cva ,Seen by Neurology- Possible migraine vs possible anxiety/psychosomatic condition .d/w with patient and neurology -added 25 mg topamax po daily.Patient says she will follow up with her own neurologist outpatient.Patient says she will follow up with her own neurologist outpatient. counseling and therapy and reassurance and education given,patient says she follow up outpatient for mood disorder.continue home meds for mood disorder. for cervical spine spondylosis: she will follow up her neurosurgeon. patient seen by Pt-going to go to rehab, patient may need less than 30 day stay. plan: topamax 25 mg po daily added . follow up neurology and neurosurgery outpatient. Time Spent with Patient Time attestation: Total time managing care of this patient today ____ minutes. Discharge coordination time: Greater than 30 minutes Quality: Safe Use of Opioids Does Pt have an Active Cancer Diagnosis on the Problem List?: No Quality: Stroke Does the patient have a stroke diagnosis?: No Physical Exam Vital Signs: Vital Signs: Last Vital Signs Temp 97.4 F 12/18/22 07:22 Pulse 76 12/18/22 07:22 Resp 18 12/18/22 07:22 BP 104/55 L 12/18/22 07:22 Pulse Ox 99 12/18/22 07:22 O2 Del Method Room Air 12/18/22 07:22 BMI result Body Mass Index 26.3 Appearance: Alert.? Oriented X3.? not in distress.? cvs: rrr, [id number] . res: clear to auscultation ,no rhonchii or wheezing abd: no rebound or guarding ,nt, bs present. ext pulses present , no cyanosis . neuro: axo3 , moves all ext. DS: Data Imaging Chest x-ray: Radiologist's impression: ITS Impressions Head CT 12/14/22 23:46 IMPRESSION: No acute intracranial pathology. This critical result was discussed with Dr. Lewis at 11:52 PM hours on 12/14/2022. It was ascertained that the content and urgency of the report was understood at the time of direct communication. Head/Neck CTA 12/15/22 00:02 IMPRESSION: CT HEAD: No intracranial hemorrhage or large acute infarction. CTA NECK: No hemodynamically significant stenosis in the major arteries of the neck. CTA HEAD: No large vessel occlusion or significant stenosis within the intracranial circulation. Additional findings: Advanced degenerative changes in the cervical spine. Cervical Spine MRI 12/15/22 12:05 IMPRESSION: BRAIN: No acute intracranial abnormality. No infarct, mass, or abnormal enhancement. Mild nonspecific foci of T2/FLAIR hyperintensity within the cerebral white matter. No evidence of definite demyelination. CERVICAL SPINE: Postoperative findings related to anterior cervical discectomy and fusion from C4 to C6. Advanced spondylosis with high-grade spinal canal stenosis and cord deformity seen at C3-C4, C5-C6, and C7-T1. Multilevel high-grade neural foraminal stenosis is also present. Brain MRI 12/15/22 12:15 IMPRESSION: BRAIN: No acute intracranial abnormality. No infarct, mass, or abnormal enhancement. Mild nonspecific foci of T2/FLAIR hyperintensity within the cerebral white matter. No evidence of definite demyelination. CERVICAL SPINE: Postoperative findings related to anterior cervical discectomy and fusion from C4 to C6. Advanced spondylosis with high-grade spinal canal stenosis and cord deformity seen at C3-C4, C5-C6, and C7-T1. Multilevel high-grade neural foraminal stenosis is also present. eeg:IMPRESSION:? No significant abnormality noted on this EEG. Discharge Plan Discharge Anticipated Discharge Date/Time: 12/17/22 13:11 Patient Disposition: Xfer SNF Discharge Diagnosis: possible migrane Referrals: jaiden kelley [Other] - 1 Week Gustavo Suarez DO [Primary Care Provider] - 1 Week Discharge Medications: Continued cyclobenzaprine 10 mg tablet 10 mg PO DAILY@1900 gabapentin 600 mg tablet 300 mg PO BID@0900,1400 valacyclovir 500 mg tablet 1,000 mg PO DAILY lorazepam 2 mg tablet 1 mg PO DAILY@2300 ergocalciferol (vitamin D2) 1,250 mcg (50,000 unit) capsule 1,250 mcg PO Q2W baclofen 20 mg tablet 20 mg PO BID@0900,1400 Eliquis 5 mg tablet 5 mg PO BID@0900,1900 omeprazole 20 mg capsule,delayed release(DR/EC) 20 mg PO DAILY@0630 methylphenidate HCl 20 mg tablet 20 mg PO TID PRN (Reason: FATIGUE/CONFUSION) estradiol 0.075 mg/24 hr patch weekly 1 patch transdermal WE@0900 biotin 5,000 mcg tablet,disintegrating 10,000 mcg PO DAILY gabapentin 600 mg tablet 1,200 mg PO DAILY@1900 lamotrigine 200 mg tablet extended release 24hr 400 mg PO DAILY Discharge Orders: Discharge Order (Routine); Ordered 12/18/22 Ordered By: Andres Mujica Diet: Advance to usual diet Activity on Discharge: As tolerated Stand Alone Forms: Patient Portal Discharge page Care Plan Goals: Patient was admitted initially came with complaining multiple complaints including generalized weakness, left side weakness-workup including CTA MRI , EEG was done seems unrevealing. Subsequently she is asymptomatic,no cva ,Seen by Neurology- Possible migraine , d/w with patient and neurology -added 25 mg topamax po daily.Patient says she will follow up with her own neurologist outpatient. counseling and therapy and reassurance and education given,patient says she follow up outpatient for mood disorder.continue home meds for mood disorder. Health Concerns: as above. Plan of Treatment: as above. Assessment: as above.
[2022-12-18] MEDS: Topiramate 25 MG TABLET PO (13:04)
== END 2022-12-18 14:59 | disposition skilled nursing facility (03) ==
LOC: HO.ED 12-15 02:38 → HO.EDOVER 12-15 02:44 → HO.IMC 12-15 14:36 → HO.S3 12-16 01:43
PROVIDERS: Admitting Provider Internal Medicine; Emergency Provider Emergency Medicine; PCP Internal Medicine; Visit Provider Internal Medicine
DX: G93.40 Encephalopathy, unspecified (principal); R47.81 Slurred speech; R20.2 Paresthesia of skin; R53.1 Weakness; M43.22 Fusion of spine, cervical region; G35 Multiple sclerosis; Z86.73 Personal history of transient ischemic attack (TIA), and cerebral infarction without residual deficits; Z79.01 Long term (current) use of anticoagulants; Z79.899 Other long term (current) drug therapy
CPT/HCPCS: 36415; 70450; 70496; 70498; 70553; 72156; 80048; 80061; 80076; 80307; 81003; 82947; 83735; 84484; 85025; 85610; 92526; 92610; 93005; 95816; 96365; 96366; 96375; 97116; 97162; 97167; 97530; 97535; 99221; 99285; A9585; J2930

== ENCOUNTER → 2022-12-14 23:44 | Outpatient (BNV) | payer MEDICARE, OTHER, SELFPAY | PROVIDERS: Admitting Provider Internal Medicine; Emergency Provider Emergency Medicine; Visit Provider Internal Medicine Cardiovascular Disease | DX: I49.3 Ventricular premature depolarization (principal) | CPT/HCPCS: 93010 ==

== ENCOUNTER → 2022-12-15 02:34 | Outpatient (BNV) | payer MEDICARE, OTHER, SELFPAY | PROVIDERS: Admitting Provider Internal Medicine; Emergency Provider Emergency Medicine; Visit Provider Internal Medicine | DX: G93.40 Encephalopathy, unspecified (principal) | CPT/HCPCS: 99223; 99231; 99239; 99499 ==

== ENCOUNTER 2022-12-23 11:00 | Outpatient (AMB) | payer MEDICARE, OTHER, SELFPAY ==
--- NOTE | 2022-12-23 11:04 | A.OFFVIS_ITS ---
Intake Vital Signs 12/23/22 11:08 Height 5 ft 3 in Weight 148 lb BMI 26.2 BP 137/65 Blood Pressure Location Lt brachial Position Sitting Pulse 107 H Pulse Source Pulse Oximeter Pulse Oximetry (%) 96 Oxygen Delivery Method Room Air Intake Visit Reasons: medication discussion Collar Pointer Required: No Accompanied by: Unknown Allergies penicillin G [Penicillin G] Allergy (Mild, Verified 12/23/22 11:09) RASH acetaminophen [Tylenol-Codeine #3] Allergy (Unknown, Verified 12/23/22 11:09) Abdominal Pain penicillin V Allergy (Unknown, Verified 12/23/22 11:09) Abdominal Pain codeine [Codeine] Adverse Reaction (Mild, Verified 12/23/22 11:09) SEVERE ABDOMINAL PAIN HPI HPI Comments History of Present Illness Details Patient presents today for follow up for medication discussion. Patient reports she was recently admitted to inpatient with CVA symptoms and is currently undergoing rehab at [place], [place]. Patient reports left sided weakness, dizziness, unsteady gait and balance problems, restless legs and has arrived via wheelchair. Patient is a accompanied by her brother. She has upcoming neurology follow up next week with Dr. Escobar. Patient requests either refill for Flexeril and Baclofen, increase in Baclofen or another medication to alleviate her significant leg cramping, which is worse by evening and night hours. Given recent events, left side weakness, balance issues, I have discussed with patient and her family that these medication will further put her at risk for falls and impaired gait. Patient is aware of not to stop Baclofen abruptly and has been taking 20 mg BID per [facility] paperwork. She is also taking gabapentin and lorazepam. Denies any fever, shortness of breaths, chest pain, bladder or bowel incontinence or saddle anesthesia. Patient is also suffering from cervical myelopathy and recent cervical MRI findings showed degenerative disc disease and advanced spondylosis with high- grade spinal canal stenosis and cord deformity seen at C3-C4, C5-C6, and C7-T1 with an anterolisthesis at C7-T1. She is scheduled on 01/16/23 per [facility] to undergo neurosurgeryat C3-C4 level which is most severe. She is currently taking Eliquis for Afib and is awaiting cardiac, medical and neurology clearance s/p recent ER visit and hospitalization. Hospital Discharge Summary 12/18/22 Hospital Course: 12/15/22-12/18/22 62-year-old female with past medical history of CVA come to the hospital with multiple complaints-please see h&P note(extermity weakness left side and vision change.) hospital course: Patient was admitted initially came with complaining multiple complaints including left side weakness-workup including CTA MRI , EEG was done seems unrevealing. Subsequently she is asymptomatic,no cva ,Seen by Neurology- Possible migraine vs possible anxiety/psychosomatic condition .d/w with patient and neurology -added 25 mg topamax po daily.Patient says she will follow up with her own neurologist outpatient.Patient says she will follow up with her own neurologist outpatient. counseling and therapy and reassurance and education given,patient says she follow up outpatient for mood disorder.continue home meds for mood disorder. for cervical spine spondylosis: she will follow up her neurosurgeon. patient seen by Pt-going to go to rehab, patient may need less than 30 day stay. PRIOR: Patient presents today to assess response to Bilateral Diagnostic L3-L4 DR Cesar NATH on 11/19/[address] Lees. She presents with left eye patch today due to recent corneal abrasion. She reports being seen by her PCP and started antibiotic. Patient reports 100% pain relief for first 3 hours and 70% pain relief for next 2 hours after procedure with improved functioning, daily activities and sleep. Patient reports she was told significant spondylosis noted during her fluoroscopy imaging on 11/19/22. Today her pain is minimal and rated at 1/10. Previously, she reports pain with prolonged sitting and bending forward. Unfortunately, she forgot to bring her lumbar spine MRI on a disc which was completed at [facility] last year. We will send request to [facility] today and patient will drop off the disc when she is able. Denies any recent cough, cold, infection, fever or other significant changes in medical history since last office visit. Patient denies any bladder or bowel incontinence or saddle anesthesia. PRIOR: Patient is a pleasant 62 years old female with prior history of atrial fibrillation currently on Eliquis, hypertension, hyperlipidemia, chronic headaches, RLS, cervical spinal stenosis with myelopathy, presents today with widespread pain and muscle cramps and spasms in both legs and right upper arm. Denies any past or recent trauma, injury or falls. Patient reports she was previously seen by [facility] with last follow up in 2020. Patient also has significant severe spinal stenosis C3-4, severe degenerative disc disease C6-C7 and anterolisthesis C7-T1 with bilateral foraminal narrowing and stenosis. She sees Dr. Judge for this and has follow up next month. Reports back injections were not helpful. She also completed physical therapy but has not gained improved functioning or pain relief. Patient also reports she has been seen by several neurologists, and has been worked up for MS. [facility] but was told she did not have MS but does have definitive diagnosis. Patient reports her muscle spasms, weakness and spasticity in arms and legs have been progressively getting worse. She also reports intermittent bladder and bowel incontinence, periodically has difficulty finding words and trouble swallowing, loosing dexterity in her hands, loosing her balance and gait frequently and easily tired. Denies saddle anesthesia. Patient reports cyclobenzaprine and gabapentin only partially controlled here pain and spasms. Patient also reports she had right hip replacement on 02/01/22 at [facility] and on 02/2022 she reports loosing all muscle control from neck and all the way down her legs for which she was hospitalized at [facility] where she was again diagnosed with MS vs seizure. She is concerned for worsening of her symptoms without current definitive diagnosis. Patient is interested to pursue second neurogical evaluation at [facility]. Location Chronic arms and legs pain, low back pain Duration Chronic for 6 years Characteristics of symptom or complaint Cramping, hurting, exhausting, aching, spasming, sore Aggravating or associated factors Movements, walking, standing, Relieving factors Baclofen, Flexeril, gabapentin, lorazepam, heat therapy Treatment PT x 6 years, OTx 5 months, back injection at [facility] Medical History Anemia Anxiety Atrial fibrillation Bipolar disease, manic Cardiac microvascular disease Cardiomyopathy Cervical spondylosis Chronic headaches Fatigue GERD (gastroesophageal reflux disease) Insomnia Lumbar spondylosis Obstructive sleep apnea Occasional tremors Restless legs syndrome (RLS) Spinal stenosis in cervical region TIA (transient ischemic attack) Surgical History H/O: knee surgery History of carpal tunnel release Hx of appendectomy Hx of cervical spine surgery Hx of cholecystectomy Hx of shoulder surgery Family History Father Dementia Cancer Mother Cancer COPD (chronic obstructive pulmonary disease) Multiple sclerosis Daughter Myasthenia Social History Household Members: Significant Other Housing: House Alcohol intake: never Patient Tobacco Use Status: Never used Tobacco service: No Review of Systems Const All systems reviewed & are unremarkable except as noted in HPI and below ENT Reports Normal hearing present Neuro Reports Normal hearing present, Denies Abnormal speech present and Denies Sensory deficit (Neuro) Physical Exam Vital Signs: Last Vital Signs Pulse 107 H 12/23/22 11:08 BP 137/65 12/23/22 11:08 Pulse Ox 96 12/23/22 11:08 Oxygen Delivery Method Room Air 12/23/22 11:08 BMI result Body Mass Index 26.2 General: Appears afebrile. Alert and oriented. Mildly anxious. Mood and affect appropriate. Follows and participates in conversation appropriately. Normal spontaneous speech with normal fluency. Respiratory effort is unlabored. Able to transition from sit to stand with assistance, left side weakness. Sitting comfortably in wheelchair. Neuro Cranial nerves: Yes Facial sensation intact/muscles of mastication intact, Yes Bilaterally intact EOM present, Yes Nystagmus not present, Yes Normal facial strength present, Yes Normal hearing present and Yes Ability to bilaterally elevate shoulders present Cognition (Neuro): normal cognition Speech: No Abnormal speech present Gait exam (Neuro): Assistive device used Motor exam (neuro): no tremor noted and Abnormal motor strength present left lo wer extremity Sensory Exam: No Sensory deficit (Neuro) Results Reviewed Results Reviewed: MR BRAIN AND CERVICAL SPINE WITHOUT AND WITH CONTRAST 12/15/22 CLINICAL INFORMATION: TIA versus MS. Weakness. FINDINGS: Brain: There is no acute infarction, mass, hemorrhage, or extra-axial collection. No abnormal or unexpected intracranial enhancement is seen. The ventricles, sulci, and basilar cisterns are normal in size and configuration. Mild nonspecific foci of T2/FLAIR hyperintensity are seen within the cerebral white matter. The flow voids of the major intracranial arteries appear intact. The bones and extracranial soft tissues are within normal limits. There is a small amount of fluid in the right mastoid. Cervical spine: There are postoperative findings related to anterior cervical discectomy and fusion from C4 to C6. There is severe disc height loss at C2-C3, C3-C4, and C7-T1. There is grade 1 anterolisthesis of C7 on T1. No bone marrow edema is seen. There is advanced facet arthropathy particularly on the right at C2-C3 and C3-C4. There is multilevel cord deformity without definite cord edema. No abnormal enhancement is seen within the cervical canal. The extraspinal soft tissues are within normal limits. C2-C3: Disc osteophyte complex with severe right facet arthropathy and uncovertebral hypertrophy resulting in severe right neural foraminal stenosis. No spinal canal stenosis. C3-C4: Disc osteophyte complex with uncovertebral hypertrophy and severe facet arthropathy resulting in severe spinal canal stenosis and severe bilateral neural foraminal stenosis. C4-C5: ACDF. Uncovertebral hypertrophy and facet arthropathy resulting in severe bilateral neural foraminal stenosis and mild to moderate spinal canal stenosis with mild flattening of the left ventral cord. C5-C6: ACDF. Prominent osteophytic ridging in addition to uncovertebral hypertrophy and facet arthropathy resulting in severe spinal canal stenosis with deformation of the ventral cord and severe bilateral neural foraminal stenosis. C6-C7: Disc osteophyte complex with uncovertebral hypertrophy and facet arthropathy resulting in moderate spinal canal stenosis and severe bilateral neural foraminal stenosis. C7-T1: Disc osteophyte complex with ligamentum flavum infolding, uncovertebral and urgency, and facet arthropathy resulting in severe spinal canal stenosis with ventral and dorsal cord deformity and severe bilateral neural foraminal stenosis. IMPRESSION: BRAIN: No acute intracranial abnormality. No infarct, mass, or abnormal enhancement. Mild nonspecific foci of T2/FLAIR hyperintensity within the cerebral white matter. No evidence of definite demyelination. CERVICAL SPINE: Postoperative findings related to anterior cervical discectomy and fusion from C4 to C6. Advanced spondylosis with high-grade spinal canal stenosis and cord deformity seen at C3-C4, C5-C6, and C7-T1. Multilevel high-grade neural foraminal stenosis is also present. Assessment & Plan Assessment & Plan (1) Muscle spasticity: Code(s): M62.838 - Other muscle spasm (2) Restless legs syndrome (RLS): Code(s): G25.81 - Restless legs syndrome (3) Myofascial pain: Code(s): M79.18 - Myalgia, other site (4) Cervical arthritis with myelopathy: Code(s): M47.12 - Other spondylosis with myelopathy, cervical region (5) Spinal stenosis in cervical region: Comment: significant spondylosis on fluoroscopy image. C/o on pain while long sitting and bending forward . She had an MRI 1 year ago. We would need to see the MRI. Basivertebral nerve ablation? Code(s): M48.02 - Spinal stenosis, cervical region (6) Cervical spondylosis: Code(s): M47.812 - Spondylosis without myelopathy or radiculopathy, cervical region Plan Reviewed recent ER visit and hospital stay course 12/15/22-12/18/22 with CVA like symptoms. At this time, no medication changes in Baclofen dose and was advised to decrease Flexeril prn use. Masspat was reviewed and without concerns. Patient has been advised of risks associated with taking muscle relaxant medications in combination with other [employer] depressants. Script sent for topical compound cream for muscle spasms and pain to [facility]. Patient is aware this pharmacy will contact her first with more information and pending insurance approval. Discussed topical application, side effects and precautions. Follow up with neurology and [facility] as scheduled. All questions and concerns have been answered and patient agreed with the plan. Follow up as needed. Medications: New diclofenac sodium 1% (Arthritis Pain (diclofenac)) apply pea-sized amount 3-5 times daily to painful areas as needed 4 grams topical QID 180 grams 3RF muscle spasms G25.81 - Restless legs syndrome, M62.838 - Other muscle spasm, M79.18 - Myalgia, other site Discontinued baclofen 20 mg PO BID 30 days PRN 60 tabs 2RF muscle spasm G25.81 - Restless legs syndrome, G35 - Multiple sclerosis, M47.816 - Spondylosis without myelopath y or radiculopathy, lumbar region, M62.838 - Other muscle spasm Coding Level of Care Code Est Pt Level 4 (82608) Diagnoses Muscle spasticity M62.838 Restless legs syndrome (RLS) G25.81 Myofascial pain M79.18 Cervical arthritis with myelopathy M47.12 Spinal stenosis in cervical region M48.02 Cervical spondylosis M47.812
[2022-12-23 11:08] VITALS: BP 137/65; PULSE 107; O2SAT 96; BMI 26.2
== END 2022-12-23 11:46 | disposition home or self-care (01) ==
PROVIDERS: PCP Internal Medicine; Visit Provider Nurse Practitioner Family
DX: M47.12 Other spondylosis with myelopathy, cervical region (principal); M48.02 Spinal stenosis, cervical region; G25.81 Restless legs syndrome; M62.838 Other muscle spasm
CPT/HCPCS: 99214

== ENCOUNTER → 2022-12-23 11:00 | Outpatient (BNVA) | payer MEDICARE, OTHER, SELFPAY | PROVIDERS: PCP Internal Medicine; Visit Provider Nurse Practitioner Family | DX: G45.9 Transient cerebral ischemic attack, unspecified (principal); G25.81 Restless legs syndrome; M79.18 Myalgia, other site; M47.12 Other spondylosis with myelopathy, cervical region; M48.02 Spinal stenosis, cervical region; M47.812 Spondylosis without myelopathy or radiculopathy, cervical region | CPT/HCPCS: 99212 ==

== ENCOUNTER 2023-01-21 14:11 | Outpatient (AMB) | payer MEDICARE, OTHER, SELFPAY ==
--- NOTE | 2023-01-21 14:17 | HO.SPINEOV ---
Intake Intake Visit Reasons: Discuss reschedule surgery. Intake Note: Ms. Denton is here today to discuss proceeding with surgery. Shank Burnisher Required: No Allergies penicillin G [Penicillin G] Allergy (Mild, Verified 12/23/22 11:09) RASH acetaminophen [Tylenol-Codeine #3] Allergy (Unknown, Verified 12/23/22 11:09) Abdominal Pain penicillin V Allergy (Unknown, Verified 12/23/22 11:09) Abdominal Pain codeine [Codeine] Adverse Reaction (Mild, Verified 12/23/22 11:09) SEVERE ABDOMINAL PAIN Assessment & Plan Assessment & Plan (1) Spinal stenosis in cervical region: Code(s): M48.02 - Spinal stenosis, cervical region Plan Dear colleague, On 01/21/2023, I saw for follow-up Ying Denton. She was scheduled to undergo a C3-4 anterior diskectomy and fusion for increasing balance problems. The surgery was postponed due to an admission in the hospital. She was going to get a thyroid biopsy and developed diplopia and blurry vision in her left eye. She was evaluated for a stroke. I reviewed the MRI of the brain which does not show any signs of stroke or MS. She tells me that the balance problems have disappeared L wants to know if she still needs to undergo over the anterior cervical decompression and fusion. I told her that it is strange that the balance problems have disappeared as this usually does not happen with cervical myelopathy. Therefore I do think it's a good idea to postpone the surgery. She is going to see a neurologist in [place] for another opinion. I advised her to return to my clinic if he, just as [facility], is of the opinion that her symptoms are caused by cervical myelopathy. Thank you for letting me take care of your patient. Mitchell Judge MD, PhD Spine Fellowship Trained Neurosurgeon Director, [facility] Coding Level of Care Code Est Pt Level 2 (39556) Diagnoses Spinal stenosis in cervical region M48.02
== END 2023-01-21 14:55 | disposition home or self-care (01) ==
PROVIDERS: PCP Internal Medicine; Visit Provider Neurological Surgery
DX: M48.02 Spinal stenosis, cervical region (principal)
CPT/HCPCS: 99212

== ENCOUNTER → 2023-01-21 14:11 | Outpatient (BNVA) | payer MEDICARE, OTHER, SELFPAY | PROVIDERS: PCP Internal Medicine; Visit Provider Neurological Surgery | DX: M48.02 Spinal stenosis, cervical region (principal) | CPT/HCPCS: 99212 ==

== ENCOUNTER 2023-02-04 13:08 | Outpatient (AMB) | payer MEDICARE, OTHER, SELFPAY ==
--- NOTE | 2023-02-04 13:09 | A.OFFVIS_ITS ---
Intake Vital Signs 02/04/23 13:17 Height 5 ft 3 in Weight 150 lb BMI 26.6 BP 126/76 Blood Pressure Location Rt brachial Position Sitting Pulse 89 Pulse Source Pulse Oximeter Pulse Oximetry (%) 99 Oxygen Delivery Method Room Air Intake Visit Reasons: Follow up prior to inj/ Confirmed. Intake Note: Pain today 09/11 [employer] Required: No Accompanied by: Self / Same As Patient Allergies penicillin G [Penicillin G] Allergy (Mild, Verified 02/04/23 13:18) RASH acetaminophen [Tylenol-Codeine #3] Allergy (Unknown, Verified 02/04/23 13:18) Abdominal Pain penicillin V Allergy (Unknown, Verified 02/04/23 13:18) Abdominal Pain codeine [Codeine] Adverse Reaction (Mild, Verified 02/04/23 13:18) SEVERE ABDOMINAL PAIN HPI HPI Comments History of Present Illness Details Patient presents today for follow up to discuss further steps after positive response to Bilateral Diagnostic L3-L4 DR L5 MBB on 11/19/22 with 100% pain relief for first 3 hours and 70% pain relief for next 2 hours after procedure with improved functioning, daily activities and sleep. Patient reports she is not interested in Sprint PNS trial and is considering lumbar medial branch RFA. She is interested to repeat lumbar diagnostic medial branch block injections in order to establish reproducible response to the treatment for potential RFA. Patient brought in her cervical and lumbar spine images on a disc from [facility], we will forward this to our Radiology department to upload images and reports. Patient also reports she continues to experience frequent dizziness and gait imbalances episodes. Patient reports her neck surgery is on hold and she is planning to follow up with Dr. Judge again at [facility]. She requests refills for cyclobenzaprine and baclofen to help with her restless leg syndrome and muscle cramps in her legs. I will defer muscle relaxants and patient will follow up with her Neurology for RLS and medication adjustment. She may continue Baclofen. Discussed associated fall risks and gait impairment with muscle relaxants. Denies any fever, shortness of breaths, chest pain, bladder or bowel incontinence or saddle anesthesia. PRIOR: Patient presents today for follow up for medication discussion. Patient reports she was recently admitted to inpatient with CVA symptoms and is currently undergoing rehab at [place], [place]. Patient reports left sided weakness, dizziness, unsteady gait and balance problems, restless legs and has arrived via wheelchair. Patient is a accompanied by her brother. She has upcoming neurology follow up next week with Dr. Escobar. Patient requests either refill for Flexeril and Baclofen, increase in Baclofen or another medication to alleviate her significant leg cramping, which is worse by evening and night hours. Given recent events, left side weakness, balance issues, I have discussed with patient and her family that these medication will further put her at risk for falls and impaired gait. Patient is aware of not to stop Baclofen abruptly and has been taking 20 mg BID per [employer] paperwork. She is also taking gabapentin and lorazepam. Denies any fever, shortness of breaths, chest pain, bladder or bowel incontinence or saddle anesthesia. Patient is also suffering from cervical myelopathy and recent cervical MRI findings showed degenerative disc disease and advanced spondylosis with high- grade spinal canal stenosis and cord deformity seen at C3-C4, C5-C6, and C7-T1 with an anterolisthesis at C7-T1. She is scheduled on 01/16/23 per [facility] to undergo neurosurgeryat C3-C4 level which is most severe. She is currently taking Eliquis for Afib and is awaiting cardiac, medical and neurology clearance s/p recent ER visit and hospitalization. Hospital Discharge Summary 12/18/22 Hospital Course: 12/15/22-12/18/22 62-year-old female with past medical his tory of CVA come to the hospital with multiple complaints-please see h&P note(extermity weakness left side and vision change.) hospital course: Patient was admitted initially came with complaining multiple complaints including left side weakness-workup including CTA MRI , EEG was done seems unrevealing. Subsequently she is asymptomatic,no cva ,Seen by Neurology- Possible migraine vs possible anxiety/psychosomatic condition .d/w with patient and neurology -added 25 mg topamax po daily.Patient says she will follow up with her own neurologist outpatient.Patient says she will follow up with her own neurologist outpatient. counseling and therapy and reassurance and education given,patient says she follow up outpatient for mood disorder.continue home meds for mood disorder. for cervical spine spondylosis: she will follow up her neurosurgeon. patient seen by Pt-going to go to rehab, patient may need less than 30 day stay. PRIOR: Patient presents today to assess response to Bilateral Diagnostic L3-L4 DR Cesar NATH on 11/19/[address] Lees. She presents with left eye patch today due to recent corneal abrasion. She reports being seen by her PCP and started antibiotic. Patient reports 100% pain relief for first 3 hours and 70% pain relief for next 2 hours after procedure with improved functioning, daily activities and sleep. Patient reports she was told significant spondylosis noted during her fluoroscopy imaging on 11/19/22. Today her pain is minimal and rated at 1/10. Previously, she reports pain with prolonged sitting and bending forward. Unfortunately, she forgot to bring her lumbar spine MRI on a disc which was completed at [facility] last year. We will send request to [facility] today and patient will drop off the disc when she is able. Denies any recent cough, cold, infection, fever or other significant changes in medical history since last office visit. Patient denies any bladder or bowel incontinence or saddle anesthesia. PRIOR: Patient is a pleasant 62 years old female with prior history of atrial fibrillation currently on Eliquis, hypertension, hyperlipidemia, chronic headaches, RLS, cervical spinal stenosis with myelopathy, presents today with widespread pain and muscle cramps and spasms in both legs and right upper arm. Denies any past or recent trauma, injury or falls. Patient reports she was previously seen by [facility] with last follow up in 2020. Patient also has significant severe spinal stenosis C3-4, severe degenerative disc disease C6-C7 and anterolisthesis C7-T1 with bilateral foraminal narrowing and stenosis. She sees Dr. Judge for this and has follow up next month. Reports back injections were not helpful. She also completed physical therapy but has not gained improved functioning or pain relief. Patient also reports she has been seen by several neurologists, and has been worked up for MS. She also notes getting second opinion but was told she did not have MS but does have definitive diagnosis. Patient reports her muscle spasms, weakness and spasticity in arms and legs have been progressively getting worse. She also reports intermittent bladder and bowel incontinence, periodically has difficulty finding words and trouble swallowing, loosing dexterity in her hands, loosing her balance and gait frequently and easily tired. Denies saddle anesthesia. Patient reports cyclobenzaprine and gabapentin only partially controlled here pain and spasms. Patient also reports she had right hip replacement on 02/01/22 at [facility] and on 02/2022 she reports loosing all muscle control from neck and all the way down her legs for which she was hospitalized at [facility] where she was again diagnosed with MS vs seizure. She is concerned for worsening of her symptoms without current definitive diagnosis. Patient is interested to pursue second neurogical evaluation at [facility]. Location Chronic arms and legs pain, low back pain Duration Chronic for 6 years Characteristics of symptom or complaint Cramping, hurting, exhausting, aching, spasming, sore Aggravating or associated factors Movements, walking, standing, Relieving factors Baclofen, Flexeril, gabapentin, lorazepam, heat therapy Treatment PT x 6 years, OTx 5 months, back injection at [facility] Medical History Lumbar spondylosis Spinal stenosis in cervical region Restless legs syndrome (RLS) Anemia Fatigue Cervical spondylosis Anxiety Bipolar disease, manic Occasional tremors Obstructive sleep apnea Insomnia GERD (gastroesophageal reflux disease) Chronic headaches Cardiac microvascular disease TIA (transient ischemic attack) Atrial fibrillation Cardiomyopathy Surgical History Hx of cervical spine surgery Hx of shoulder surgery H/O: knee surgery Hx of cholecystectomy History of carpal tunnel release Hx of appendectomy Family History Father Dementia Cancer Mother Cancer COPD (chronic obstructive pulmonary disease) Multiple sclerosis Daughter Myasthenia Social History Household Members: Significant Other Housing: House Alcohol intake: never Patient Tobacco Use Status: Never used Tobacco service: No Review of Systems Const All systems reviewed & are unremarkable except as noted in HPI and below Physical Exam Vital Signs: Last Vital Signs Pulse 89 02/04/23 13:17 BP 126/76 02/04/23 13:17 Pulse Ox 99 02/04/23 13:17 Oxygen Delivery Method Room Air 02/04/23 13:17 BMI result Body Mass Index 26.6 General: Appears afebrile. Alert and oriented. Mood and affect appropriate. Follows and participates in conversation appropriately. Normal spontaneous speech with normal fluency. Respiratory effort is unlabored. Able to transition from sit to stand with assistance. Ambulates with mildly antalgic and guarded gait. No assisting devices. Back/Spine/Pelvis Cervical Spine: cervical muscular tenderness, pain with cervical ROM and No Cervical spine tenderness Thoracic/Lumbar Spine: thoracic and lumbar spine normal to inspection, Lasegue's sign negative, straight leg raise negative bilaterally, pain with thoraco- lumbar ROM, paraspinal muscle tenderness, thoraco-lumbar ROM limited, No thoracic spinal tenderness and lumbar spinal tenderness at L4 and at L5 Pelvis: buttock tenderness bilaterally Sacroiliac joints: bilaterally tender to palpation Results Reviewed Results Reviewed: MR OF THE LUMBAR SPINE WITHOUT CONTRAST 11/20/2009 HISTORY: LOW BACK PAIN R/O RADICULOPATHY . Left hip pain radiating to the left leg x1 year. No history of trauma. COMPARISON: None. FINDINGS: Conus medullaris terminates at the mid L2 level, and demonstrates normal signal. There is no abnormal thickening of the cauda equina nerve roots. There is normal alignment of the lumbar spine. Vertebral bone marrow signal is preserved. Large Schmorl's nodes are present anteriorly within the superior and inferior aspect of L1, resulting in anterior loss of vertebral body height. No STIR hyperintensity is seen to suggest marrow edema or acute compression fracture. At T12-L1, no significant spinal canal or foraminal stenosis. At L1-L2, there is bilateral facet arthropathy and mild diffuse disc bulging. There is mild spinal canal stenosis. No significant neuroforaminal stenosis. At L2-L3, there is mild diffuse disc bulging, bilateral facet arthropathy, and hypertrophy of ligamentum flavum, resulting in mild spinal canal stenosis and mild bilateral neuroforaminal stenoses. At L3-L4, there is no significant disc herniation, central spinal canal stenosis or neuroforaminal narrowing. At L4-L5, there is bilateral facet arthropathy and hypertrophy of ligamentum flavum, without significant spinal canal or foraminal stenosis. At L5-S1, there is loss of intervertebral disc height, bilateral facet arthropathy, and diffuse disc bulging, resulting in mild spinal canal stenosis and mild to moderate bilateral neuroforaminal stenoses. IMPRESSION: Mild multilevel lumbar spondylosis, as above, most pronounced at the L5-S1 level. Assessment & Plan Assessment & Plan (1) Restless legs syndrome (RLS): Code(s): G25.81 - Restless legs syndrome (2) Multiple sclerosis: Code(s): G35 - Multiple sclerosis (3) Muscle spasticity: Code(s): M62.838 - Other muscle spasm (4) Lumbar spondylosis: Code(s): M47.816 - Spondylosis without myelopathy or radiculopathy, lumbar region (5) Spinal stenosis in cervical region: Code(s): M48.02 - Spinal stenosis, cervical region (6) Cervical spondylosis: Code(s): M47.812 - Spondylosis without myelopathy or radiculopathy, cervical region (7) Myofascial pain: Code(s): M79.18 - Myalgia, other site Plan 1. Patient will follow up with Dr. Judge for persistent neck pain, cervical spinal stenosis with degenerative changes with ongoing dizziness and gait imbalance. 2. Continue Baclofen 20 mg BID. Side effects and precautions were discussed with patient. 3. Schedule for repeat diagnostic bilateral L3-L4 DR L5 medial branch blocks with local and fluoroscopy for potential radiofrequency ablation procedure. Patient is no longer interested in Sprint PNS trial as she lives alone and this would not be practical for her to take care of the device as well as ongoing neck pain. Patient is aware that any surgical procedures through [facility] will take precedence over repeating these nerve blocks. All questions were answered and the patient is in agreement with the treatment plan. Follow up after injections or sooner if needed. Anticoagulation: Patient on anticoagulation (Eliquis) and instructions given on when to pause with prescribing physician permission. Justification for interventional therapy: ? Patient with average pain > 6/10 ? Patient has exhausted conservative therapy, occupational and physical therapy The risks, consequences, alternatives, and benefits of various treatment options were discussed with the patient in great detail, including conservative management, injections and procedures. Medications: Changed From baclofen 20 mg PO BID@0900,1400 G25.81 - Restless legs syndrome, M48.02 - Spinal stenosis, cervical region, M79.18 - Myalgia, other site To baclofen 20 mg PO BID 30 days PRN 60 tabs 0RF muscle spasm G25.81 - Restless legs syndrome, M48.02 - Spinal stenosis, cervical region, M79.18 - Myalgia, other site Coding Level of Care Code Est Pt Level 4 (64167) Diagnoses Restless legs syndrome (RLS) G25.81 Multiple sclerosis G35 Muscle spasticity M62.838 Lumbar spondylosis M47.816 Spinal stenosis in cervical region M48.02 Cervical spondylosis M47.812 Myofascial pain M79.18
[2023-02-04 13:17] VITALS: BP 126/76; PULSE 89; O2SAT 99; BMI 26.6
== END 2023-02-04 13:32 | disposition home or self-care (01) ==
PROVIDERS: PCP Internal Medicine; Visit Provider Nurse Practitioner Family
DX: G25.81 Restless legs syndrome (principal); M62.838 Other muscle spasm; M47.816 Spondylosis without myelopathy or radiculopathy, lumbar region; M48.02 Spinal stenosis, cervical region; M47.812 Spondylosis without myelopathy or radiculopathy, cervical region; M79.18 Myalgia, other site
CPT/HCPCS: 99214

== ENCOUNTER → 2023-02-04 13:08 | Outpatient (BNVA) | payer MEDICARE, OTHER, SELFPAY | PROVIDERS: PCP Internal Medicine; Visit Provider Nurse Practitioner Family | DX: G25.81 Restless legs syndrome (principal); M62.838 Other muscle spasm; M47.816 Spondylosis without myelopathy or radiculopathy, lumbar region; M48.02 Spinal stenosis, cervical region; M47.812 Spondylosis without myelopathy or radiculopathy, cervical region; M79.18 Myalgia, other site | CPT/HCPCS: 99212 ==

== ENCOUNTER 2023-02-25 06:04 | Outpatient (REF) | payer MEDICARE, OTHER, SELFPAY ==
--- NOTE | ~2023-02-25 | FL_ITS ---
EXAMINATION: XR FLUOROSCOPY WITH IMAGES CLINICAL INFORMATION: Spondylosis without myelopathy or radiculopathy, lumbar region. Bilateral lumbar injection. COMPARISON: None available. TECHNIQUE: Fluoroscopy Supervised By: Dr. Lucio Lees. Fluoroscopy Time: 0.6 minutes. Cumulative Dose: 4.8 mGy. DAP: 0.0835 Gycm2. Images: 6. FINDINGS: Images demonstrate needle placement and contrast injection adjacent to the bilateral lateral L3, L4 and L5 vertebrae FL/FL guidance in treatment room IMPRESSION: Fluoroscopy guidance for pain management procedure
== END 2023-02-25 06:05 | disposition home or self-care (01) ==
LOC: CF 06:04
PROVIDERS: Visit Provider Anesthesiology
DX: M47.816 Spondylosis without myelopathy or radiculopathy, lumbar region (principal); M62.838 Other muscle spasm; M48.02 Spinal stenosis, cervical region; M47.812 Spondylosis without myelopathy or radiculopathy, cervical region; G25.81 Restless legs syndrome; G35 Multiple sclerosis; M79.18 Myalgia, other site
CPT/HCPCS: 64493; 64494; J2795; Q9967

== ENCOUNTER 2023-02-25 07:17 | Outpatient (AMB) | payer MEDICARE, OTHER, SELFPAY ==
[2023-02-25 07:47] VITALS: BP 118/60; PULSE 90; RESP 16; O2SAT 99
--- NOTE | 2023-02-25 07:47 | A.OFFVIS_ITS ---
Intake Vital Signs 02/25/23 07:47 02/25/23 08:26 Height 5 ft 3 in 5 ft 3 in Weight 150 lb BMI 26.6 BP 118/60 118/82 Blood Pressure Location Lt brachial Lt brachial Position Sitting Sitting Respiration 16 18 Pulse 90 78 Pulse Source Pulse Oximeter Pulse Oximeter Pulse Oximetry (%) 99 98 Oxygen Delivery Method Room Air Room Air Comment Pre-Op Post-Op Intake Visit Reasons: BILAT DX L3-L4-DRL5 MBB (REPEAT INJ) Allergies penicillin G [Penicillin G] Allergy (Mild, Verified 02/04/23 13:18) RASH acetaminophen [Tylenol-Codeine #3] Allergy (Unknown, Verified 02/04/23 13:18) Abdominal Pain penicillin V Allergy (Unknown, Verified 02/04/23 13:18) Abdominal Pain codeine [Codeine] Adverse Reaction (Mild, Verified 02/04/23 13:18) SEVERE ABDOMINAL PAIN PFSH Medical History Lumbar spondylosis Spinal stenosis in cervical region Restless legs syndrome (RLS) Anemia Fatigue Cervical spondylosis Anxiety Bipolar disease, manic Occasional tremors Obstructive sleep apnea Insomnia GERD (gastroesophageal reflux disease) Chronic headaches Cardiac microvascular disease TIA (transient ischemic attack) Atrial fibrillation Cardiomyopathy Surgical History Hx of cervical spine surgery Hx of shoulder surgery H/O: knee surgery Hx of cholecystectomy History of carpal tunnel release Hx of appendectomy Family History Father Dementia Cancer Mother Cancer COPD (chronic obstructive pulmonary disease) Multiple sclerosis Daughter Myasthenia Social History Household Members: Significant Other Housing: House Alcohol intake: never Patient Tobacco Use Status: Never used Tobacco service: No Physical Exam Vital Signs: Last Vital Signs Pulse 78 02/25/23 08:26 Resp 18 02/25/23 08:26 BP 118/82 02/25/23 08:26 Pulse Ox 98 02/25/23 08:26 Oxygen Delivery Method Room Air 02/25/23 08:26 BMI result Body Mass Index 26.6 Assessment & Plan Assessment & Plan (1) Restless legs syndrome (RLS): Code(s): G25.81 - Restless legs syndrome (2) Multiple sclerosis: Code(s): G35 - Multiple sclerosis (3) Muscle spasticity: Code(s): M62.838 - Other muscle spasm (4) Lumbar spondylosis: Code(s): M47.816 - Spondylosis without myelopathy or radiculopathy, lumbar region Plan: Diagnostic #2 medial branch block L3,L4 dorsal ramus L5 bilateral.? ? ?Informed consent was explained to the patient. All questions were explained and? answered.? The patient was taken inside the operating room where she was positioned prone on the operating table. Time-out was performed delineating correct site, side, the nature of the procedure, patient's allergy, . All operating room staff was participating in OR time-out procedure. ? ? The lower back was prepped with ChloraPrep and draped with sterile towels.? C- arm was brought over the operating field and sq picture of L4-, L5 vertebra and S1 AREA were delineated on the screen.? Point of interest were delineated as confluence of superior articular process of L4 and L5 vertebra bilaterally with corresponding transverse processes as well as confluence of the sacral alae bilaterally with superior articular process of S1.? The projection of the point of interest to the skin were injected with the small amount of local anesthetic lidocaine 2% 1-1.5 cc.? After that 22 gauge 3.5 inch spinal needle was driven sequentially to the points of interest in tunnel vision fashion. After needles gently contacted the bone at the point of interests the needle was injected with small amount of the contrast.? The injection of the contrast did not demonstrate any intravascular or intrathecal spread of the contrast.? After that injection of the?bupivacaine 0.75% 0.5%- less than 1cc was performed at each needle location.??after that the needles were removed and Bandaids were applied. ? Upon completion of the injections? needle was? removed and sterile Band-Aids were applied.? The patient tolerated procedure very well. (5) Spinal stenosis in cervical region: Code(s): M48.02 - Spinal stenosis, cervical region (6) Cervical spondylosis: Code(s): M47.812 - Spondylosis without myelopathy or radiculopathy, cervical region (7) Myofascial pain: Code(s): M79.18 - Myalgia, other site Plan 1. Patient will follow up with Dr. Judge for persistent neck pain, cervical spinal stenosis with degenerative changes with ongoing dizziness and gait imbalance. 2. Continue Baclofen 20 mg BID. Side effects and precautions were discussed with patient. 3. Schedule for repeat diagnostic bilateral L3-L4 DR L5 medial branch blocks with local and fluoroscopy for potential radiofrequency ablation procedure. Gayla peña is no longer interested in Sprint PNS trial as she lives alone and this would not be practical for her to take care of the device as well as ongoing neck pain. Patient is aware that any surgical procedures through [facility] will take precedence over repeating these nerve blocks. All questions were answered and the patient is in agreement with the treatment plan. Follow up after injections or sooner if needed. Anticoagulation: Patient on anticoagulation (Eliquis) and instructions given on when to pause with prescribing physician permission. Justification for interventional therapy: ? Patient with average pain > 6/10 ? Patient has exhausted conservative therapy, occupational and physical therapy The risks, consequences, alternatives, and benefits of various treatment options were discussed with the patient in great detail, including conservative management, injections and procedures. Orders: Orders FL guidance in treatment room 02/25/23 M47.816 - Spondylosis without myelopathy or radiculopathy, lumbar region Coding Level of Care Code Procedure Only Diagnoses Restless legs syndrome (RLS) G25.81 Multiple sclerosis G35 Muscle spasticity M62.838 Lumbar spondylosis M47.816 Spinal stenosis in cervical region M48.02 Cervical spondylosis M47.812 Myofascial pain M79.18
[2023-02-25 08:26] VITALS: BP 118/82; PULSE 78; RESP 18; O2SAT 98; BMI 26.6
== END 2023-02-25 08:34 | disposition home or self-care (01) ==
LOC: HO.PMCPRC 07:17
PROVIDERS: PCP Internal Medicine; Visit Provider Anesthesiology
DX: M47.816 Spondylosis without myelopathy or radiculopathy, lumbar region (principal); G35 Multiple sclerosis
CPT/HCPCS: 64493; 64494

== ENCOUNTER 2023-02-27 08:51 | Outpatient (AMB) | payer MEDICARE, OTHER, SELFPAY ==
--- NOTE | 2023-02-27 09:03 | MHC.OFFVIS ---
Intake Vital Signs 02/27/23 09:06 Height 5 ft 3 in Weight 136 lb BMI 24.1 BP 139/65 Blood Pressure Location Rt brachial Position Sitting Pulse 84 Pulse Source Pulse Oximeter Pulse Oximetry (%) 100 Oxygen Delivery Method Room Air Intake Visit Reasons: BILAT DX L3-L4-DRL5 MBB (REPEAT) 02/25 Intake Note: Pain today 07/12 [place] Required: No Accompanied by: Self / Same As Patient Allergies penicillin G [Penicillin G] Allergy (Mild, Verified 02/27/23 09:06) RASH acetaminophen [Tylenol-Codeine #3] Allergy (Unknown, Verified 02/27/23 09:06) Abdominal Pain penicillin V Allergy (Unknown, Verified 02/27/23 09:06) Abdominal Pain codeine [Codeine] Adverse Reaction (Mild, Verified 02/27/23 09:06) SEVERE ABDOMINAL PAIN HPI HPI Comments History of Present Illness Details Patient presents today to follow up for repeat Bilateral Diagnostic L3-L4 DR L5 MBB injections on 02/25/[address] Lees. Patient reports 100% pain relief for 12 hours post procedure with improved function and mobility. She reports left leg weakness post procedure which self-resolved next morning once local anesthetic has worn off. Patient did notify Dr. Lees in our office and was informed to monitor her symptoms. Patient denies any weakness, gait instability, bladder or bowel dysfunction or saddle anesthesia. She is interested to proceed with lumbar medial branch RFA as next steps prior to undergo C3-C4 ACDF neck surgery in April with Dr. Judge. PRIOR: Patient presents today for follow up to discuss further steps after positive response to Bilateral Diagnostic L3-L4 DR L5 MBB on 11/19/22 with 100% pain relief for first 3 hours and 70% pain relief for next 2 hours after procedure with improved functioning, daily activities and sleep. Patient reports she is not interested in Sprint PNS trial and is considering lumbar medial branch RFA. She is interested to repeat lumbar diagnostic medial branch block injections in order to establish reproducible response to the treatment for potential RFA. Patient brought in her cervical and lumbar spine images on a disc from [facility], we will forward this to our Radiology department to upload images and reports. Patient also reports she continues to experience frequent dizziness and gait imbalances episodes. Patient reports her neck surgery is on hold and she is planning to follow up with Dr. Pennings again at [facility]. She requests refills for cyclobenzaprine and baclofen to help with her restless leg syndrome and muscle cramps in her legs. I will defer muscle relaxants and patient will follow up with her Neurology for RLS and medication adjustment. She may continue Baclofen. Discussed associated fall risks and gait impairment with muscle relaxants. Denies any fever, shortness of breaths, chest pain, bladder or bowel incontinence or saddle anesthesia. PRIOR: Patient presents today for follow up for medication discussion. Patient reports she was recently admitted to inpatient with CVA symptoms and is currently undergoing rehab at [place], [place]. Patient reports left sided weakness, dizziness, unsteady gait and balance problems, restless legs and has arrived via wheelchair. Patient is a accompanied by her brother. She has upcoming neurology follow up next week with Dr. Escobar. Patient requests either refill for Flexeril and Baclofen, increase in Baclofen or another medication to alleviate her significant leg cramping, which is worse by evening and night hours. Given recent events, left side weakness, balance issues, I have discussed with patient and her family that these medication will further put her at risk for falls and impaired gait. Patient is aware of not to stop Baclofen abruptly and has been taking 20 mg BID per [facility] paperwork. She is also taking gabapentin and lorazepam. Denies any fever, shortness of breaths, chest pain, bladder or bowel incontinence or saddle anesthesia. Patient is also suffering from cervical myelopathy and recent cervical MRI findings showed degenerative disc disease and advanced spondylosis with high-grade spinal canal stenosis and cord deformity seen at C3-C4, C5-C6, and C7-T1 with an anterolisthesis at C7-T1. She is scheduled on 01/16/23 per [facility] to undergo neurosurgeryat C3-C4 level which is most severe. She is currently taking Eliquis for Afib and is awaiting cardiac, medical and neurology clearance s/p recent ER visit and hospitalization. Hospital Discharge Summary 12/18/22 Hospital Course: 12/15/22-12/18/22 62-year-old female with past medical history of CVA come to the hospital with multiple complaints-please see h&P note(extermity weakness left side and vision change.) hospital course: Patient was admitted initially came with complaining multiple complaints including left side weakness-workup including CTA MRI , EEG was done seems unrevealing. Subsequently she is asymptomatic,no cva ,Seen by Neurology- Possible migraine vs possible anxiety/psychosomatic condition .d/w with patient and neurology -added 25 mg topamax po daily.Patient says she will follow up with her own neurologist outpatient.Patient says she will follow up with her own neurologist outpatient. counseling and therapy and reassurance and education given,patient says she follow up outpatient for mood disorder.continue home meds for mood disorder. for cervical spine spondylosis: she will follow up her neurosurgeon. patient seen by Pt-going to go to rehab, patient may need less than 30 day stay. PRIOR: Patient presents today to assess response to Bilateral Diagnostic L3-L4 DR Cesar NATH on 11/19/[address] Lees. She presents with left eye patch today due to recent corneal abrasion. She reports being seen by her PCP and started antibiotic. Patient reports 100% pain relief for first 3 hours and 70% pain relief for next 2 hours after procedure with improved functioning, daily activities and sleep. Patient reports she was told significant spondylosis noted during her fluoroscopy imaging on 11/19/22. Today her pain is minimal and rated at 1/10. Previously, she reports pain with prolonged sitting and bending forward. Unfortunately, she forgot to bring her lumbar spine MRI on a disc which was completed at [facility] last year. We will send request to [facility] today and patient will drop off the disc when she is able. Denies any recent cough, cold, infection, fever or other significant changes in medical history since last office visit. Patient denies any bladder or bowel incontinence or saddle anesthesia. PRIOR: Patient is a pleasant 62 years old female with prior history of atrial fibrillation currently on Eliquis, hypertension, hyperlipidemia, chronic headaches, RLS, cervical spinal stenosis with myelopathy, presents today with widespread pain and muscle cramps and spasms in both legs and right upper arm. Denies any past or recent trauma, injury or falls. Patient reports she was previously seen by [facility] with last follow up in 2020. Patient also has significant severe spinal stenosis C3-4, severe degenerative disc disease C6-C7 and anterolisthesis C7-T1 with bilateral foraminal narrowing and stenosis. She sees Dr. Pennings for this and has follow up next month. Reports back injections were not helpful. She also completed physical therapy but has not gained improved functioning or pain relief. Patient also reports she has been seen by several neurologists, and has been worked up for MS. She also notes getting second opinion but was told she did not have MS but does have definitive diagnosis. Patient reports her muscle spasms, weakness and spasticity in arms and legs have been progressively getting worse. She also reports intermittent bladder and bowel incontinence, periodically has difficulty finding words and trouble swallowing, loosing dexterity in her hands, loosing her balance and gait frequently and easily tired. Denies saddle anesthesia. Patient reports cyclobenzaprine and gabapentin only partially controlled here pain and spasms. Patient also reports she had right hip replacement on 02/01/22 at [facility] and on 02/2022 she reports loosing all muscle control from neck and all the way down her legs for which she was hospitalized at [facility] where she was again diagnosed with MS vs seizure. She is concerned for worsening of her symptoms without current definitive diagnosis. Patient is interested to pursue second neurogical evaluation at [facility]. Location Chronic arms and legs pain, low back pain Duration Chronic for 6 years Characteristics of symptom or complaint Cramping, hurting, exhausting, aching, spasming, sore Aggravating or associated factors Movements, walking, standing, Relieving factors Baclofen, Flexeril, gabapentin, lorazepam, heat therapy Treatment PT x 6 years, OTx 5 months, back injection at [facility] Medical History Lumbar spondylosis Spinal stenosis in cervical region Restless legs syndrome (RLS) Anemia Fatigue Cervical spondylosis Anxiety Bipolar disease, manic Occasional tremors Obstructive sleep apnea Insomnia GERD (gastroesophageal reflux disease) Chronic headaches Cardiac microvascular disease TIA (transient ischemic attack) Atrial fibrillation Cardiomyopathy Surgical History Hx of cervical spine surgery Hx of shoulder surgery H/O: knee surgery Hx of cholecystectomy History of carpal tunnel release Hx of appendectomy Family History Father Dementia Cancer Mother Cancer COPD (chronic obstructive pulmonary disease) Multiple sclerosis Daughter Myasthenia Social History Household Members: Significant Other Housing: House Alcohol intake: never Patient Tobacco Use Status: Never used Tobacco service: No Review of Systems Const All systems reviewed & are unremarkable except as noted in HPI and below Physical Exam Vital Signs: Last Vital Signs Pulse 84 02/27/23 09:06 BP 139/65 02/27/23 09:06 Pulse Ox 100 02/27/23 09:06 Oxygen Delivery Method Room Air 02/27/23 09:06 BMI result Body Mass Index 24.1 General: Appears afebrile. Alert and oriented. Mood and affect appropriate. Follows and participates in conversation appropriately. Normal spontaneous speech with normal fluency. Respiratory effort is unlabored. Able to transition from sit to stand with assistance. Ambulates with mildly antalgic and guarded gait. No assisting devices. Assessment & Plan Assessment & Plan (1) Lumbar spondylosis: Code(s): M47.816 - Spondylosis without myelopathy or radiculopathy, lumbar region (2) Myofascial pain: Code(s): M79.18 - Myalgia, other site Plan 1. Patient is status post repeat diagnostic bilateral lumbar medial branch blocks with good results and improved function. 2. We will proceed with bilateral L3-L4- L5 medial branch RFA with sedation and fluoroscopy for chronic axial low back pain. Patient is no longer interested in Sprint PNS trial as she lives alone and this would not be practical for her lifestyle. She is also scheduled to undergo cervical spine surgery C3-C4 ACDF on 04/10/23. All questions were answered and the patient is in agreement with the treatment plan. Follow up after injections or sooner if needed. Anticoagulation: Patient on anticoagulation (Eliquis) and instructions given on when to pause with prescribing physician permission. Justification for interventional therapy: ? Patient with average pain > 6/10 ? Patient has exhausted conservative therapy, occupational and physical therapy The risks, consequences, alternatives, and benefits of various treatment options were discussed with the patient in great detail, including conservative management, injections and procedures. Coding Level of Care Code Est Pt Level 3 (91899) Diagnoses Lumbar spondylosis M47.816 Myofascial pain M79.18
[2023-02-27 09:06] VITALS: BP 139/65; PULSE 84; O2SAT 100; BMI 24.1
== END 2023-02-27 09:45 | disposition home or self-care (01) ==
PROVIDERS: PCP Internal Medicine; Visit Provider Nurse Practitioner Family
DX: M47.816 Spondylosis without myelopathy or radiculopathy, lumbar region (principal); M79.18 Myalgia, other site
CPT/HCPCS: 99213

== ENCOUNTER → 2023-02-27 08:51 | Outpatient (BNVA) | payer MEDICARE, OTHER, SELFPAY | PROVIDERS: PCP Internal Medicine; Visit Provider Nurse Practitioner Family | DX: M47.816 Spondylosis without myelopathy or radiculopathy, lumbar region (principal); M79.18 Myalgia, other site | CPT/HCPCS: 99212 ==

== ENCOUNTER 2023-03-13 10:24 | Day surgery (SDC) | payer MEDICARE, OTHER, SELFPAY ==
--- NOTE | 2023-03-11 13:45 | P.CONAN_ITS ---
HPI - Anesthesia Eval Consult details Narrative: 63yo F for Bilateral L3-L4-DR L5 Medial Branch Radiofrequency AB Cardiac cleared. Follows [facility] cardiology for: Afib. Eliqushari ok to hold s/p PVC ablation [facility] 12/2022 with extremity weakness. CVA ruled out. All imaging WNL. Eval by neuro suggests migraine vs psychosomatic. [facility] Active Problems Active Problems: All Active Problems (Updated 01/21/23 @ 14:45 by Mitchell Judge MD, PhD) Myofascial pain (Acute) Encephalopathy (Acute) Cervical arthritis with myelopathy (Acute) Corneal abrasion (Acute) Muscle spasticity (Acute) Multiple sclerosis (Acute) Lumbar spondylosis (Acute) Spinal stenosis in cervical region (Acute) Restless legs syndrome (RLS) (Acute) Anemia (Acute) Fatigue (Acute) Cervical spondylosis (Acute) Anxiety (Acute) Bipolar disease, manic (Acute) Occasional tremors (Acute) Obstructive sleep apnea (Acute) Insomnia (Acute) GERD (gastroesophageal reflux disease) (Acute) Chronic headaches (Acute) Past Medical History Medical History Lumbar spondylosis Spinal stenosis in cervical region Restless legs syndrome (RLS) Anemia Fatigue Cervical spondylosis Anxiety Bipolar disease, manic Occasional tremors Obstructive sleep apnea Insomnia GERD (gastroesophageal reflux disease) Chronic headaches Cardiac microvascular disease TIA (transient ischemic attack) Atrial fibrillation Cardiomyopathy Family History Family History Father Dementia Cancer Mother Cancer COPD (chronic obstructive pulmonary disease) Multiple sclerosis Daughter Myasthenia Surgical History Surgical History H/O radiofrequency ablation (RFA) of nerve of lumbar spine Hx of cervical spine surgery Hx of shoulder surgery H/O: knee surgery Hx of cholecystectomy History of carpal tunnel release Hx of appendectomy Social History Social History Household Members: Significant Other Housing: House Alcohol intake: never Patient Tobacco Use Status: Never used Tobacco service: No Meds Allergies Allergy/AdvReac Type Severity Reaction Status Date / Time penicillin G [Penicillin G] Allergy Mild RASH Verified 03/17/23 15:34 penicillin V Allergy Unknown Abdominal Verified 03/17/23 15:34 Pain codeine [Codeine] AdvReac Mild SEVERE Verified 03/17/23 15:34 ABDOMINAL PAIN Home Medications Medication Instructions Recorded Confirmed Last Taken Type apixaban 5 mg tablet (Eliquis) 5 mg PO BID@0900,1900 08/14/22 03/17/23 03/09/23 21:00 History biotin 5,000 mcg disintegrating 10,000 mcg PO DAILY 08/14/22 03/17/23 12/14/22 History tablet estradiol 0.075 mg/24 hr weekly 1 patch transdermal WE@0900 08/14/22 03/17/23 12/11/22 History transdermal patch gabapentin 600 mg tablet 1,200 mg PO DAILY@1900 08/14/22 03/17/23 12/14/22 History methylphenidate HCl 20 mg tablet 20 mg PO TID PRN FATIGUE/CONFUSION 08/14/22 03/17/23 Unknown History omeprazole 20 mg capsule,delayed 20 mg PO DAILY@0630 08/14/22 03/17/23 03/13/23 History release lamotrigine 200 mg tablet,extended 400 mg PO DAILY 11/20/22 03/17/23 03/13/23 History release 24 hr ergocalciferol (vitamin D2) 1,250 1,250 mcg PO Q2W 12/15/22 03/17/23 12/08/22 History mcg (50,000 unit) capsule lorazepam 2 mg tablet 1 mg PO DAILY@2300 12/15/22 03/17/23 12/14/22 History alprazolam 0.5 mg tablet 0.5 mg PO BID PRN Anxiety 02/27/23 03/17/23 Unknown History Exam Exam Date and Time: March 11, 2023 1345 Pertinent Lab Results Pertinent Lab Results: Laboratory Tests 12/15/22 06:18 WBC 4.5 L Hgb 13.4 Hct 39.6 Plt Count 320 Sodium 139 Potassium 4.0 Chloride 107 Carbon Dioxide 24 BUN 10 Creatinine 0.62 Narrative Narrative: EKG 01/2023 from [facility] NSR @ 82 Low voltage QRS Borderline EKG No significant change from 09/2022 ECHO 08/2020 LV size is normal. LV wall thickness is normal. LV systolic function is normal. LVEF 55-60% No RWMA LV filling pressures are indeterminate. RV is nml in size and function No change from 07/2020 Cardiac cath with acetylcholine challenge 12/2022 per cardiac office visit note: No obstructive CAD Less than 30% disease in RCA and circumflex, LAD noted to have 50% disease, FFR was normal Acetylcholine challenge showed no microvascular disease Assessment and Plan Assessment Anesthesia Assessment: Chart Reviewed
--- NOTE | ~2023-03-13 | FL_ITS ---
EXAMINATION: XR FLUOROSCOPY WITH IMAGES CLINICAL INFORMATION: MBB COMPARISON: None available. TECHNIQUE: Fluoroscopy Supervised By: Dr. Lucio Lees. Fluoroscopy Time: 0.7 minutes. Cumulative Dose: 20.8 mGy. DAP: 4.07 Gycm2. Images: 2. FINDINGS: Images demonstrate leads projecting over the right lateral L3, L4 and L5 vertebrae FL/FL guidance in OR IMPRESSION: Fluoroscopic guidance for pain management procedure.
[2023-03-13 10:38] VITALS: BMI 23.6
[2023-03-13 11:02] VITALS: BP 121/55; PULSE 74; RESP 16; TEMP 36.7; O2SAT 98
[2023-03-13] MEDS: Lactated Ringers 1,000 ML 100 ML IVCONT (11:05)
--- NOTE | 2023-03-13 11:30 | MHC.SHP ---
Pre-Procedural Eval Section A Date of Service: 03/13/23 The patient is an INPATIENT: No Changes since office visit: Yes Patient answered all questions The History & Physical has been completed within 30 days and I have reviewed it.: No Section B Chief Complaint: Spondylosis without myelopathy or radiculopathy, Details of Present Illness: as above Relevant Family History (Specify if Yes): No Relevant Social History: None Present Medications: see Short Stay Collaborative assessment Medical History: No relevant PMH History of Previous Operations: No relevant previous surgery Allergies: Allergies Allergy/AdvReac Type Severity Reaction Status Date / Time penicillin G [Penicillin G] Allergy Mild RASH Verified 03/13/23 10:43 acetaminophen Allergy Unknown Abdominal Verified 03/13/23 10:43 [Tylenol-Codeine #3] Pain penicillin V Allergy Unknown Abdominal Verified 03/13/23 10:43 Pain codeine [Codeine] AdvReac Mild SEVERE Verified 03/13/23 10:43 ABDOMINAL PAIN Review of Systems Sugical H&P ROS: Negative: Constitution, Cardiovascular, Respiratory, Neurological, Psychiatric, Hem-Onc, Allergic/Immunologic, Gastrointestinal, Genitourinary, Musculoskeletal, Integumentary, Endocrine and Eyes/Ears/Nose/Throat Exam Surgical H&P Exam: Normal: HEENT, Normal: Heart, Normal: Lungs, Normal: Extremities, Normal: Abdomen, Normal: Skin and Normal: Neurological Plan Diagnosis/Plan: Unchanged I have reviewed the history and physical and performed a pertinent physical examination on my patient. No changes have occurred unless specified. Time Spent With Patient Time: Total time managing care of this patient today ____ minutes.
--- NOTE | 2023-03-13 12:20 | P.CONAN_ITS ---
[facility] Active Problems Active Problems: All Active Problems (Updated 01/21/23 @ 14:45 by Mitchell Judge MD, PhD) Myofascial pain (Acute) Encephalopathy (Acute) Cervical arthritis with myelopathy (Acute) Corneal abrasion (Acute) Muscle spasticity (Acute) Multiple sclerosis (Acute) Lumbar spondylosis (Acute) Spinal stenosis in cervical region (Acute) Restless legs syndrome (RLS) (Acute) Anemia (Acute) Fatigue (Acute) Cervical spondylosis (Acute) Anxiety (Acute) Bipolar disease, manic (Acute) Occasional tremors (Acute) Obstructive sleep apnea (Acute) Insomnia (Acute) GERD (gastroesophageal reflux disease) (Acute) Chronic headaches (Acute) Past Medical History Medical History Lumbar spondylosis Spinal stenosis in cervical region Restless legs syndrome (RLS) Anemia Fatigue Cervical spondylosis Anxiety Bipolar disease, manic Occasional tremors Obstructive sleep apnea Insomnia GERD (gastroesophageal reflux disease) Chronic headaches Cardiac microvascular disease TIA (transient ischemic attack) Atrial fibrillation Cardiomyopathy Functional capacity: independent ambulation Patient : No Family History Family History Father Dementia Cancer Mother Cancer COPD (chronic obstructive pulmonary disease) Multiple sclerosis Daughter Myasthenia Family history of problems with anesthesia: No Surgical History Surgical History Hx of cervical spine surgery Hx of shoulder surgery H/O: knee surgery Hx of cholecystectomy History of carpal tunnel release Hx of appendectomy History of Problems with Anesthesia: No Social History Social History Household Members: Significant Other Housing: House Alcohol intake: never Patient Tobacco Use Status: Never used Tobacco Use of substances other than those prescribed or required for medical reasons: No Are you DNR?: No Advance Directives: No Advance Directives Information Provided: Yes service: No Meds Allergies Allergy/AdvReac Type Severity Reaction Status Date / Time penicillin G [Penicillin G] Allergy Mild RASH Verified 03/13/23 10:43 penicillin V Allergy Unknown Abdominal Verified 03/13/23 10:43 Pain codeine [Codeine] AdvReac Mild SEVERE Verified 03/13/23 10:43 ABDOMINAL PAIN Active Medications: Current Medications Lactated Ringer's (Lr) 1,000 mls @ 100 mls/hr IVCONT .Q10H DAMIAN Last Admin: 03/13/23 11:05 Dose: 100 mls/hr Home Medications Medication Instructions Recorded Confirmed Last Taken Type apixaban 5 mg tablet (Eliquis) 5 mg PO BID@0900,1900 08/14/22 03/13/23 03/09/23 21:00 History biotin 5,000 mcg disintegrating 10,000 mcg PO DAILY 08/14/22 03/13/23 12/14/22 History tablet estradiol 0.075 mg/24 hr weekly 1 patch transdermal WE@0900 08/14/22 03/13/23 12/11/22 History transdermal patch gabapentin 600 mg tablet 1,200 mg PO DAILY@1900 08/14/22 03/13/23 12/14/22 History methylphenidate HCl 20 mg tablet 20 mg PO TID PRN FATIGUE/CONFUSION 08/14/22 03/13/23 Unknown History omeprazole 20 mg capsule,delayed 20 mg PO DAILY@0630 08/14/22 03/13/23 03/13/23 History release lamotrigine 200 mg tablet,extended 400 mg PO DAILY 11/20/22 03/13/23 03/13/23 History release 24 hr ergocalciferol (vitamin D2) 1,250 1,250 mcg PO Q2W 12/15/22 03/13/23 12/08/22 History mcg (50,000 unit) capsule gabapentin 600 mg tablet 300 mg PO BID@0900,1400 12/15/22 03/13/23 12/14/22 History lorazepam 2 mg tablet 1 mg PO DAILY@2300 12/15/22 03/13/23 12/14/22 History alprazolam 0.5 mg tablet 0.5 mg PO BID PRN Anxiety 02/27/23 03/13/23 Unknown History Exam Exam Date and Time: March 13, 2023 1220 Height,Weight and Vital Signs: Height 5 ft 3 in Weight 60.328 kg Last Vital Signs Temp 98.0 F 03/13/23 11:02 Pulse 74 03/13/23 11:02 Resp 16 03/13/23 11:02 BP 121/55 L 03/13/23 11:02 Pulse Ox 98 03/13/23 11:02 O2 Del Method Room Air 03/13/23 11:02 Airway Mallampati Class: II TM Dist: >3cm Neck ROM: Full Heart: RRR Lungs: CTA Assessment and Plan Assessment Anesthesia Assessment: Anesthesia Plan Discussed Final Anesthetic Review Family History of Problems with Anesthesia: No History of Problems with Anesthesia: No NPO: Yes ASA Class: III Final Preanesthetic Review: Meds/Allgs Chart Reviewed, Consent Obtained/Reviewed and Anes Risks/Benef Reviewed Patient Risk: Low Procedure Risk: Low Anesthetic Plan Anesthetic Plan: MAC: Disposition: Standard PACU
[2023-03-13 13:04] VITALS: BP 133/69; PULSE 72; RESP 16; TEMP 36.3; O2SAT 98
--- NOTE | 2023-03-13 13:10 | PM.OP ---
Brief Operative Note Date of Service: 03/13/23 Pre-op diagnosis: spondylosis lumbar area without myelopathy or radiculopathy Post-op diagnosis: same Procedure: RFA B/l L3- L4- L5 bilateral Surgeon: Lucio Lees MD Was an Mortgage Loan Coordinator used for this Procedure?: No Estimated blood loss (mL): 3 Condition: stable Disposition: PACU
--- NOTE | 2023-03-13 13:11 | W.PM.OPN ---
Operative Note Operative Note Date of Service: 03/13/23 Narrative: RFA L3- L4- DRL5 bilateral medial branches. Informed consent was explained to the patient. All questions were explained and answered. The patient was taken inside the operating room where he was positioned prone on the operating table. ASA m-rs were applied,? the patient was sedated however he was able to communicate with me during the entire procedure. The patient was explained that having the procedure while awake would be safer, he was? able to answer the questions and respond to the commands. Time-out was performed delineating name and of the patient,? correct site, side, the nature of the procedure, patient's allergy, preoperative antibiotic if needed. All operating room staff was participating in OR time-out procedure. The lower back was prepped with ChloraPrep and draped with sterile towels. C-arm was brought over the operating field and sq picture of L4, L5 vertebra and S1 area were delineated on the screen. Point of interest were delineated as connection of superior articular process of? L4, L5 vertebra bilaterally with corresponding transverse processes 1st on the right and then on the left side, as well as confluence of the superior articular process of S1 with sacral ala first on the right and then on the left .? ?The projection of the point of interest to the skin were injected with the small amount of local anesthetic lidocaine 2% 1-1.5 cc. After that 18 gauge 100 mm RFA canulas? were driven to the point of interest in oblique fashion. After needles gently contacted the bone the? sensory and motor tests were performed. Sensory response was appropriate and no motor response was detected in the patients feet lower legs or thighs. After that? at the point of interests the cannulas? were injected with small amount of ropivacaine 0.5% mixed with lidocaine 1%-1cc?-2cc. and Trace amount of Kenalog. 90 seconds after the injection the energy application was performed at 89 degrees Centigrade for 90 second. After first energy application the canullas were rotated 180 degrees and energy application was repeated at the same setting.? Upon completion of the energy applications canullas were removed and sterile bandaids? were applied, The? patient was taken outside of the operating room to recovery room.
[2023-03-13 13:19] VITALS: BP 128/68; PULSE 75; RESP 14; TEMP 36.2; O2SAT 97
[2023-03-13 13:34] VITALS: BP 140/74; PULSE 78; RESP 16; TEMP 36.3; O2SAT 99
--- NOTE | 2023-03-13 13:53 | HO.POSTANES ---
Post Anesthesia Evaluation Post Anesthesia Evaluation Date of Service: 03/13/23 Vital Signs: Vital Signs Temp Pulse Resp BP Pulse Ox O2 Del Method 03/13/23 13:34 97.4 F 78 16 140/74 H 99 Room Air 03/13/23 13:19 97.2 F 75 14 128/68 97 Room Air 03/13/23 13:04 97.4 F 72 16 133/69 98 Room Air 03/13/23 11:02 98.0 F 74 16 121/55 L 98 Room Air Anesthesia: Monitored Mental Status: Awake Pain Control: Satisfactory Nausea/Vomiting: None Hydration: Adequate Anesthesia-Related Issues: No Anes. Related Issues
== END 2023-03-13 14:20 | disposition home or self-care (01) ==
PROVIDERS: PCP Internal Medicine; Visit Provider Anesthesiology
PROC: (CPT 64635; principal; 2023-03-13 13:00)
DX: M47.816 Spondylosis without myelopathy or radiculopathy, lumbar region (principal); D64.9 Anemia, unspecified; R53.83 Other fatigue; R25.1 Tremor, unspecified; R51.9 Headache, unspecified; I42.9 Cardiomyopathy, unspecified; I25.85 Chronic coronary microvascular dysfunction; I48.91 Unspecified atrial fibrillation; F31.9 Bipolar disorder, unspecified; G47.33 Obstructive sleep apnea (adult) (pediatric); K21.9 Gastro-esophageal reflux disease without esophagitis; Z86.73 Personal history of transient ischemic attack (TIA), and cerebral infarction without residual deficits; Z88.0 Allergy status to penicillin; Z88.5 Allergy status to narcotic agent; Z98.890 Other specified postprocedural states
CPT/HCPCS: 64635; 64636 ×2; J2704; J2795; J3010; J3301; Q9967

== ENCOUNTER → 2023-03-13 10:24 | Outpatient (BNV) | payer MEDICARE, OTHER, SELFPAY | PROVIDERS: PCP Internal Medicine; Visit Provider Anesthesiology | DX: M47.816 Spondylosis without myelopathy or radiculopathy, lumbar region (principal) | CPT/HCPCS: 64635; 64636 ==

== ENCOUNTER 2023-03-17 15:17 | Outpatient (AMB) | payer MEDICARE, OTHER, SELFPAY ==
--- NOTE | 2023-03-17 15:33 | MHC.OFFVIS ---
Intake Vital Signs 03/17/23 15:34 Height 5 ft 3 in Weight 133 lb 2 oz BMI 23.6 BP 110/72 Blood Pressure Location Rt brachial Position Sitting Respiration 16 Pulse 79 Pulse Source Pulse Oximeter Pulse Oximetry (%) 98 Oxygen Delivery Method Room Air Intake Visit Reasons: 3m f/up Restlessness of legs- confirmed Intake Note: Pt presents to the office for a 3 month follow up for restless legs. 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: No Allergies penicillin G [Penicillin G] Allergy (Mild, Verified 03/17/23 15:34) RASH penicillin V Allergy (Unknown, Verified 03/17/23 15:34) Abdominal Pain codeine [Codeine] Adverse Reaction (Mild, Verified 03/17/23 15:34) SEVERE ABDOMINAL PAIN Medication List - Last Reconciled 03/17/23 by India Esocbar MD alprazolam 0.5 mg PO BID PRN apixaban (Eliquis) 5 mg PO BID@0900,1900 baclofen 20 mg PO BID PRN 30 days biotin 10,000 mcg PO DAILY ergocalciferol (vitamin D2) 1,250 mcg PO Q2W estradiol 1 patch transdermal WE@0900 gabapentin 300 mg PO BID@0900,1400 gabapentin 1,200 mg PO DAILY@1900 lamotrigine ER 400 mg PO DAILY lorazepam 1 mg PO DAILY@2300 methylphenidate HCl 20 mg PO TID PRN omeprazole 20 mg PO DAILY@0630 [rollator As directed] HPI HPI Comments History of Present Illness Details 63y/o right handed female comes for follow up of restless legs syndrome.I reviewed her notes from at [facility] center - he suggested another opinion with curriculum specialist , MS was ruled out , suggested functional neurological syndrome. she is scheduled for C spine surgery Apr [address] Judge. I also reviewed her ER notes from [facility] and [place]. she wants to be referred to [facility] for opinion. But she wants to discuss other neurological symptoms that she is concerned about Her main concerns or symptoms are 1. generalized weakness, balance issues- episodic , no neck pain .SHe has had multiple episode sin past 2 years . No numbness or tingling 2. she has bladder and bowel incontinence on and off . she has sees a urologist and GI . 3. Speech- sometimes she changes words and word finding difficulty 4. Muscle spasms - in her lower trunk and legs and ue - episodic. it can be at rest and walking.she is on gabapentin 1200 mg qhs and still has residual twitching . Previous history-Her main question is if she has MS ( ruled out by Dr. Brar) She was also seen by Dr. Judge for cervical stenosis but due to her fusion surgeries. As per Dr. Judge.Her symptom could be related to cervical myelopathy associated with the radiological abnormality seen on the MRI of the cervical spine.? However, a surgery would involve fusion of the C3-4, C6-7 C7-T1 levels and combining that with the already fused C4-5 and C5-6 levels would make her at risk for failure at the cervicothoracic region.? She started having symptoms of restlessness in her right leg about 40 years ago.It progressed to involve her both lower extremities. she was seeing Dr. Parisi and was treated with gabapentin .In the past 1 year she feels the symptoms have progressed to involve her trunk and UE. she describes the restless as lightning electric shock sensation with involuntary leg jerking, more at rest and night and relief with moving.It usually starts from 7pm when she sits down to relax. she used to have it only when she went to bed. she wakes up 1-2 times a night. she takes her gabapentin at 8 pm 1200 mg - still wakes up in the middle of the night. she reports excessive daytime fatigue she was diagnosed with mild sleep apnea 4 years ago but she could not tolerate CPAP. [facility] Medical History Lumbar spondylosis Spinal stenosis in cervical region Restless legs syndrome (RLS) Anemia Fatigue Cervical spondylosis Anxiety Bipolar disease, manic Occasional tremors Obstructive sleep apnea Insomnia GERD (gastroesophageal reflux disease) Chronic headaches Cardiac microvascular disease TIA (transient ischemic attack) Atrial fibrillation Cardiomyopathy Surgical History H/O radiofrequency ablation (RFA) of nerve of lumbar spine Hx of cervical spine surgery Hx of shoulder surgery H/O: knee surgery Hx of cholecystectomy History of carpal tunnel release Hx of appendectomy Family History Father Dementia Cancer Mother Cancer COPD (chronic obstructive pulmonary disease) Multiple sclerosis Daughter Myasthenia Social History Household Members: Significant Other Housing: House Alcohol intake: never Patient Tobacco Use Status: Never used Tobacco service: No Physical Exam Vital Signs: Last Vital Signs Pulse 79 03/17/23 15:34 Resp 16 03/17/23 15:34 BP 110/72 03/17/23 15:34 Pulse Ox 98 03/17/23 15:34 Oxygen Delivery Method Room Air 03/17/23 15:34 BMI result Body Mass Index 23.6 Const General: cooperative, healthy appearing, comfortable and no acute distress Nutritional Appearance: average body habitus Orientation/consciousness: patient oriented x3 Limitations: no limitations Eyes Pupils: Equal, round and reactive pupils present Neuro General: patient oriented x3, tone normal, moves all extremities, Normal light touch and pain sensation and no focal motor deficits Cranial nerves: Yes Facial sensation intact/muscles of mastication intact, Yes Equal, round and reactive pupils present, Yes Bilaterally intact EOM present, Yes Nystagmus not present, Yes Normal facial strength present, Yes Midline tongue present, Yes Symmetric palate elevation present and Yes Ability to bilaterally elevate shoulders present Cognition (Neuro): normal cognition Gait exam (Neuro): Normal gait present Motor exam (neuro): 5/5 motor strength present throughout and Normal motor muscle tone present throughout Deep tendon reflexes (DTR's): Left triceps reflex intensity grade: 1+, Rt Biceps (C5, C6): 1+, Left biceps reflex intensity grade: 1+, Right brachioradialis reflex intensity grade: 1+, Left brachioradialis reflex intensity grade: 1+, Right patellar reflex intensity grade: 0 and Left patellar reflex intensity grade: 0 Coordination: [id number] test normal Assessment & Plan Assessment & Plan (1) Restless legs syndrome (RLS): Code(s): G25.81 - Restless legs syndrome (2) Spinal stenosis in cervical region: Code(s): M48.02 - Spinal stenosis, cervical region (3) Lumbar spondylosis: Code(s): M47.816 - Spondylosis without myelopathy or radiculopathy, lumbar region Plan Continue gabapentin 1200mg qhs she did not start ropinirole XR 2mg qhs due to interaction with lamictal F/u as needed Orders: Referrals Neurology Referral G25.81 - Restless legs syndrome, M47.12 - Other spondylosis with myelopathy, cervical region, M48.02 - Spinal stenosis, cervical region, M62.838 - Other muscle spasm Coding Level of Care Code Est Pt Level 4 (42528) Diagnoses Restless legs syndrome (RLS) G25.81 Spinal stenosis in cervical region M48.02 Lumbar spondylosis M47.816
[2023-03-17 15:34] VITALS: BP 110/72; PULSE 79; RESP 16; O2SAT 98; BMI 23.6
== END 2023-03-17 15:56 | disposition home or self-care (01) ==
PROVIDERS: PCP Internal Medicine; Visit Provider Psychiatry & Neurology Neurology
DX: G25.81 Restless legs syndrome (principal); M48.02 Spinal stenosis, cervical region; M47.816 Spondylosis without myelopathy or radiculopathy, lumbar region
CPT/HCPCS: 99214

== ENCOUNTER → 2023-03-17 15:17 | Outpatient (BNVA) | payer MEDICARE, OTHER, SELFPAY | PROVIDERS: PCP Internal Medicine; Visit Provider Psychiatry & Neurology Neurology | DX: G25.81 Restless legs syndrome (principal); M48.02 Spinal stenosis, cervical region; M47.816 Spondylosis without myelopathy or radiculopathy, lumbar region | CPT/HCPCS: 99212 ==

== ENCOUNTER 2023-04-08 13:17 | Outpatient (AMB) | payer MEDICARE, OTHER, SELFPAY ==
[2023-04-08 13:31] VITALS: BP 139/76; PULSE 76; RESP 16; O2SAT 100; BMI 23.6
--- NOTE | 2023-04-08 13:31 | A.OFFVIS_ITS ---
Intake Vital Signs 04/08/23 13:31 Height 5 ft 3 in Weight 133 lb 2 oz BMI 23.6 BP 139/76 Blood Pressure Location Rt brachial Position Sitting Respiration 16 Pulse 76 Pulse Source Pulse Oximeter Pulse Oximetry (%) 100 Oxygen Delivery Method Room Air Intake Visit Reasons: s/p B/L L3-L4-L5 MB RFA 03/13/23/confirmed Allergies penicillin G [Penicillin G] Allergy (Mild, Verified 04/08/23 13:28) RASH penicillin V Allergy (Unknown, Verified 04/08/23 13:28) Abdominal Pain mold Allergy (Verified 04/08/23 13:28) Headache [place]-LFM-QeY Reductase Inhibitor Allergy (Verified 04/08/23 13:28) Weakness codeine [Codeine] Adverse Reaction (Mild, Verified 04/08/23 13:28) SEVERE ABDOMINAL PAIN HPI HPI Comments History of Present Illness Details Patient presents today to follow up for repeat Bilateral L3-L4 DR L5 Medial Branch RFA on 03/13/[address] Lees. Patient reports 100% ongoing pain relief in her lower back area with improved function and mobility. She continues to endorse restless leg syndrome and neuropathic pain with episodic muscle spasms in her upper and lower extremities, as well as occasional balance issues, weakness and twitching. Patient reports she is being referred to [facility] by Dr. Escobar for second opinion. She reports gabapentin and baclofen have been effective during severe muscle spasms episodes. Patient reports she is not aware when these episodes will happen. She is scheduled to undergo Cervical spine surgery this week on 04/10/[address] Judge. Denies any recent cough, cold, infection, fever or other significant changes in medical history since last office visit. PRIOR: Patient presents today for follow up to discuss further steps after positive response to Bilateral Diagnostic L3-L4 DR L5 MBB on 11/19/22 with 100% pain relief for first 3 hours and 70% pain relief for next 2 hours after procedure with improved functioning, daily activities and sleep. Patient reports she is not interested in Sprint PNS trial and is considering lumbar medial branch RFA. She is interested to repeat lumbar diagnostic medial branch block injections in order to establish reproducible response to the treatment for potential RFA. Patient brought in her cervical and lumbar spine images on a disc from [facility], we will forward this to our Radiology department to upload images and reports. Patient also reports she continues to experience frequent dizziness and gait imbalances episodes. Patient reports her neck surgery is on hold and she is planning to follow up with Dr. Judge again at [facility]. She requests refills for cyclobenzaprine and baclofen to help with her restless leg syndrome and muscle cramps in her legs. I will defer muscle relaxants and patient will follow up with her Neurology for RLS and medication adjustment. She may continue Baclofen. Discussed associated fall risks and gait impairment with muscle relaxants. Denies any fever, shortness of breaths, chest pain, bladder or bowel incontinence or saddle anesthesia. PRIOR: Patient presents today for follow up for medication discussion. Patient reports she was recently admitted to inpatient with CVA symptoms and is currently undergoing rehab at [place], [place]. Patient reports left sided weakness, dizziness, unsteady gait and balance problems, restless legs and has arrived via wheelchair. Patient is a accompanied by her brother. She has [facility] follow up next week with Dr. Escobar. Patient requests either refill for Flexeril and Baclofen, increase in Baclofen or another medication to alleviate her significant leg cramping, which is worse by evening and night hours. Given recent events, left side weakness, balance issues, I have discussed with patient and her family that these medication will further put her at risk for falls and impaired gait. Patient is aware of not to stop Baclofen abruptly and has been taking 20 mg BID per [facility] paperwork. She is also taking gabapentin and lorazepam. Denies any fever, shortness of breaths, chest pain, bladder or bowel incontinence or saddle anesthesia. Patient is also suffering from cervical myelopathy and recent cervical MRI findings showed degenerative disc disease and advanced spondylosis with high- grade spinal canal stenosis and cord deformity seen at C3-C4, C5-C6, and C7-T1 with an anterolisthesis at C7-T1. She is scheduled on 01/16/23 per [facility] to undergo neurosurgeryat C3-C4 level which is most severe. She is currently taking Eliquis for Afib and is awaiting cardiac, medical and neurology clearance s/p recent ER visit and hospitalization. Hospital Discharge Summary 12/18/22 Hospital Course: 12/15/22-12/18/22 62-year-old female with past medical his tory of CVA come to the hospital with multiple complaints-please see h&P note(extermity weakness left side and vision change.) hospital course: Patient was admitted initially came with complaining multiple complaints including left side weakness-workup including CTA MRI , EEG was done seems unrevealing. Subsequently she is asymptomatic,no cva ,Seen by Neurology- Possible migraine vs possible anxiety/psychosomatic condition .d/w with patient and neurology -added 25 mg topamax po daily.Patient says she will follow up with her own neurologist outpatient.Patient says she will follow up with her own neurologist outpatient. counseling and therapy and reassurance and education given,patient says she follow up outpatient for mood disorder.continue home meds for mood disorder. for cervical spine spondylosis: she will follow up her neurosurgeon. patient seen by Pt-going to go to rehab, patient may need less than 30 day stay. PRIOR: Patient presents today to assess response to Bilateral Diagnostic L3-L4 DR L5 MBB on 11/19/[address] Lees. She presents with left eye patch today due to recent corneal abrasion. She reports being seen by her PCP and started antibiotic. Patient reports 100% pain relief for first 3 hours and 70% pain relief for next 2 hours after procedure with improved functioning, daily activities and sleep. Patient reports she was told significant spondylosis noted during her flu oroscopy imaging on 11/19/22. Today her pain is minimal and rated at 1/10. Previously, she reports pain with prolonged sitting and bending forward. Unfortunately, she forgot to bring her lumbar spine MRI on a disc which was completed at [facility] last year. We will send request to [facility] today and patient will drop off the disc when she is able. Denies any recent cough, cold, infection, fever or other significant changes in medical history since last office visit. Patient denies any bladder or bowel incontinence or saddle anesthesia. PRIOR: Patient is a pleasant 62 years old female with prior history of atrial fibrillation currently on Eliquis, hypertension, hyperlipidemia, chronic headaches, RLS, cervical spinal stenosis with myelopathy, presents today with widespread pain and muscle cramps and spasms in both legs and right upper arm. Denies any past or recent trauma, injury or falls. Patient reports she was previously seen by [facility] with last follow up in 2020. Patient also has significant severe spinal stenosis C3-4, severe degenerative disc disease C6-C7 and anterolisthesis C7-T1 with bilateral foraminal narrowing and stenosis. She sees Dr. Judge for this and has follow up next month. Reports back injections were not helpful. She also completed physical therapy but has not gained improved functioning or pain relief. Patient also reports she has been seen by several neurologists, and has been worked up for MS. She also notes getting second opinion but was told she did not have MS but does have definitive diagnosis. Patient reports her muscle spasms, weakness and spasticity in arms and legs have been progressively getting worse. She also reports intermittent bladder and bowel incontinence, periodically has difficulty finding words and trouble swallowing, loosing dexterity in her hands, loosing her balance and gait frequently and easily tired. Denies saddle anesthesia. Patient reports cyclobenzaprine and gabapentin only partially controlled here pain and spasms. Patient also reports she had right hip replacement on 02/01/22 at [facility] and on 02/2022 she reports loosing all muscle control from neck and all the way down her legs for which she was hospitalized at [facility] where she was again diagnosed with MS vs seizure. She is concerned for worsening of her symptoms without current definitive diagnosis. Patient is interested to pursue second neurogical evaluation at [facility]. Location Chronic arms and legs pain, low back pain Duration Chronic for 6 years Characteristics of symptom or complaint Cramping, hurting, exhausting, aching, spasming, sore Aggravating or associated factors Movements, walking, standing, Relieving factors Baclofen, Flexeril, gabapentin, lorazepam, heat therapy Treatment PT x 6 years, OTx 5 months, back injection at [facility] Medical History Arthritis Difficulty swallowing Weakness On anticoagulant therapy Lumbar spondylosis Spinal stenosis in cervical region Restless legs syndrome (RLS) Anemia Fatigue Cervical spondylosis Anxiety Bipolar disease, manic Occasional tremors Obstructive sleep apnea Insomnia GERD (gastroesophageal reflux disease) Cardiac microvascular disease TIA (transient ischemic attack) Atrial fibrillation Cardiomyopathy Surgical History History of partial hysterectomy History of tonsillectomy Hx of hand surgery History of radiofrequency ablation procedure for cardiac arrhythmia History of esophagogastroduodenoscopy (EGD) H/O colonoscopy H/O radiofrequency ablation (RFA) of nerve of lumbar spine Hx of cervical spine surgery Hx of shoulder surgery H/O: knee surgery Hx of cholecystectomy History of carpal tunnel release Hx of appendectomy Family History Father Dementia Cancer Mother Cancer COPD (chronic obstructive pulmonary disease) Multiple sclerosis Daughter Myasthenia Social History Household Members: Significant Other Housing: House Are you a primary health care attorney to a significant other at home: No Do you presently have visiting nurse 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 Alert and oriented. Mood and affect appropriate. Follows and participates in conversation appropriately. Normal spontaneous speech with normal fluency. Respiratory effort is unlabored. Able to transition from sit to stand with assistance. Ambulates with mildly antalgic and guarded gait. No assisting devices. Back/Spine/Pelvis Cervical Spine: cervical muscular tenderness, pain with cervical ROM and No Cervical spine tenderness Thoracic/Lumbar Spine: thoracic and lumbar spine normal to inspection, No Thoracic/lumbar spine scar(s), thoraco-lumbar ROM normal, Lasegue's sign negative, straight leg raise negative bilaterally, No paraspinal muscle tenderness, No thoracic spinal tenderness and No lumbar spinal tenderness Sacroiliac joints: bilaterally nontender Extrem General: Yes capillary refill normal, Yes no clubbing, cyanosis or edema and Yes no calf tenderness Results Reviewed Results Reviewed: MR OF THE LUMBAR SPINE WITHOUT CONTRAST 11/20/2009 HISTORY: LOW BACK PAIN R/O RADICULOPATHY . Left hip pain radiating to the left leg x1 year. No history of trauma. COMPARISON: None. FINDINGS: Conus medullaris terminates at the mid L2 level, and demonstrates normal signal. There is no abnormal thickening of the cauda equina nerve roots. There is normal alignment of the lumbar spine. Vertebral bone marrow signal is preserved. Large Schmorl's nodes are present anteriorly within the superior and inferior aspect of L1, resulting in anterior loss of vertebral body height. No STIR hyperintensity is seen to suggest marrow edema or acute compression fracture. At T12-L1, no significant spinal canal or foraminal stenosis. At L1-L2, there is bilateral facet arthropathy and mild diffuse disc bulging. There is mild spinal canal stenosis. No significant neuroforaminal stenosis. At L2-L3, there is mild diffuse disc bulging, bilateral facet arthropathy, and hypertrophy of ligamentum flavum, resulting in mild spinal canal stenosis and mild bilateral neuroforaminal stenoses. At L3-L4, there is no significant disc herniation, central spinal canal stenosis or neuroforaminal narrowing. At L4-L5, there is bilateral facet arthropathy and hypertrophy of ligamentum flavum, without significant spinal canal or foraminal stenosis. At L5-S1, there is loss of intervertebral disc height, bilateral facet arthropathy, and diffuse disc bulging, resulting in mild spinal canal stenosis and mild to moderate bilateral neuroforaminal stenoses. IMPRESSION: Mild multilevel lumbar spondylosis, as above, most pronounced at the L5-S1 level. Assessment & Plan Assessment & Plan (1) Lumbar spondylosis: Code(s): M47.816 - Spondylosis without myelopathy or radiculopathy, lumbar region (2) Myofascial pain: Code(s): M79.18 - Myalgia, other site (3) Restless legs syndrome (RLS): Code(s): G25.81 - Restless legs syndrome (4) Cervical spondylosis: Code(s): M47.812 - Spondylosis without myelopathy or radiculopathy, cervical region Plan Patient is status post bilateral lumbar medial branch RFA with good results and improved function and partially improved sleep. Patient will continue to monitor her axial low back symptoms and notify our office next year when her back pain returns. Patient is also scheduled to undergo cervical spine surgery C3-C4 ACDF on 04/10/[address] Judge. All questions and concerns have been answered and patient agreed with the plan. Follow up as needed. Coding Level of Care Code Est Pt Level 3 (39809) Diagnoses Lumbar spondylosis M47.816 Myofascial pain M79.18 Restless legs syndrome (RLS) G25.81 Cervical spondylosis M47.812
== END 2023-04-08 13:43 | disposition home or self-care (01) ==
PROVIDERS: PCP Internal Medicine; Visit Provider Nurse Practitioner Family
DX: M47.816 Spondylosis without myelopathy or radiculopathy, lumbar region (principal); M79.18 Myalgia, other site; G25.81 Restless legs syndrome; M47.812 Spondylosis without myelopathy or radiculopathy, cervical region
CPT/HCPCS: 99213

== ENCOUNTER → 2023-04-08 13:17 | Outpatient (BNVA) | payer MEDICARE, OTHER, SELFPAY | PROVIDERS: PCP Internal Medicine; Visit Provider Nurse Practitioner Family | DX: M47.812 Spondylosis without myelopathy or radiculopathy, cervical region (principal); G25.81 Restless legs syndrome; M79.18 Myalgia, other site; M47.816 Spondylosis without myelopathy or radiculopathy, lumbar region; R42 Dizziness and giddiness; R26.9 Unspecified abnormalities of gait and mobility | CPT/HCPCS: 99212 ==

== ENCOUNTER 2023-04-10 10:32 | Day surgery (SDC) | payer MEDICARE, OTHER, SELFPAY ==
[2023-03-25 12:12] VITALS: BP 137/72; PULSE 70; RESP 16; O2SAT 100; BMI 23.9
--- NOTE | 2023-03-25 12:38 | P.CONAN_ITS ---
Documented by User: Jany Dhaliwal NP 03/25/23 13:02 HPI - Anesthesia Eval Consult details Narrative: 63yo Ff or C3-4 Ant Cerv Discectomy w/ fusion Bilateral L3-L4-DR L5 Medial Branch Radiofrequency AB Cardiac cleared. Follows [facility] cardiology for: Afib. Eliquis ok to hold. Pt concerned RE: interrupting OAC. Will discuss with manager of health. ? bridge s/p PVC ablation [facility] admit 12/2022 with extremity weakness. CVA ruled out. All imaging WNL. Eval by neuro suggests migraine vs psychosomatic. At PAT, pt reports vague symptoms of muscle cramping, occasional loss of coordination. Encouraged f/u with pcp/neurologist. No recent illness No CP/SOB with >4 mets. Only limited to muscle cramps/weakness GERD. PPI controls synptoms BHANU mild. No CPAP PMFSH Active Problems Active Problems: All Active Problems (Updated 03/25/23 @ 11:59 by Neris Jonas RN) Myofascial pain (Acute) Encephalopathy (Acute) Cervical arthritis with myelopathy (Acute) Corneal abrasion (Acute) Muscle spasticity (Acute) Chronic headaches (Acute) Lumbar spondylosis (Acute) Spinal stenosis in cervical region (Acute) Restless legs syndrome (RLS) (Acute) Anemia (Acute) Fatigue (Acute) Cervical spondylosis (Acute) Anxiety (Acute) Bipolar disease, manic (Acute) Occasional tremors (Acute) Obstructive sleep apnea (Acute) Insomnia (Acute) GERD (gastroesophageal reflux disease) (Acute) Past Medical History Medical History Arthritis Difficulty swallowing Weakness On anticoagulant therapy Lumbar spondylosis Spinal stenosis in cervical region Restless legs syndrome (RLS) Anemia Fatigue Cervical spondylosis Anxiety Bipolar disease, manic Occasional tremors Obstructive sleep apnea Insomnia GERD (gastroesophageal reflux disease) Cardiac microvascular disease TIA (transient ischemic attack) Atrial fibrillation Cardiomyopathy Family History Family History Father Dementia Cancer Mother Cancer COPD (chronic obstructive pulmonary disease) Multiple sclerosis Daughter Myasthenia Family history of problems with anesthesia: No Surgical History Surgical History History of partial hysterectomy History of tonsillectomy Hx of hand surgery History of radiofrequency ablation procedure for cardiac arrhythmia History of esophagogastroduodenoscopy (EGD) H/O colonoscopy H/O radiofrequency ablation (RFA) of nerve of lumbar spine Hx of cervical spine surgery Hx of shoulder surgery H/O: knee surgery Hx of cholecystectomy History of carpal tunnel release Hx of appendectomy History of Problems with Anesthesia: No Social History Social History Household Members: Significant Other Housing: House Are you a primary field care coordinator to a significant other at home: No Do you presently have visiting nurse 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 If so, by whom?: No Advance Directives: No Advance Directives Information Provided: No Advance Directives on File: No Recently lost weight without trying: No Eating poorly because of decreased appetite: No Nutrition Risks: No Nutritional Risk Patient : No : No Poor oral hygiene: Yes (full upper denture) service: No Meds Allergies Allergy/AdvReac Type Severity Reaction Status Date / Time penicillin G [Penicillin G] Allergy Mild RASH Verified 04/08/23 13:28 penicillin V Allergy Unknown Abdominal Verified 04/08/23 13:28 Pain mold Allergy Headache Verified 04/08/23 13:28 [id number] Reductase Allergy Weakness Verified 04/08/23 13:28 Inhibitor codeine [Codeine] AdvReac Mild SEVERE Verified 04/08/23 13:28 ABDOMINAL PAIN Home Medications Medication Instructions Recorded Confirmed Last Taken Type apixaban 5 mg tablet (Eliquis) 5 mg PO BID@0900,1900 08/14/22 03/25/23 03/09/23 21:00 History biotin 5,000 mcg disintegrating 10,000 mcg PO DAILY 08/14/22 03/25/23 12/14/22 History tablet estradiol 0.075 mg/24 hr weekly 1 patch transdermal WE@0900 08/14/22 03/25/23 12/11/22 History transdermal patch gabapentin 600 mg tablet 1,200 mg PO DAILY@1900 08/14/22 03/25/23 12/14/22 His tory methylphenidate HCl 20 mg tablet 10 mg PO TID PRN FATIGUE/CONFUSION 08/14/22 03/25/23 Unknown History omeprazole 20 mg capsule,delayed 20 mg PO DAILY@0630 08/14/22 03/25/23 03/13/23 History release lamotrigine 200 mg tablet,extended 400 mg PO DAILY 11/20/22 03/25/23 03/13/23 History release 24 hr ergocalciferol (vitamin D2) 1,250 1,250 mcg PO Q2W 12/15/22 03/25/23 12/08/22 History mcg (50,000 unit) capsule lorazepam 2 mg tablet 2 mg PO DAILY@2300 12/15/22 03/25/23 12/14/22 History alprazolam 0.5 mg tablet 0.25 mg PO BID PRN Anxiety 02/27/23 03/25/23 Unknown H istory baclofen 20 mg tablet 20 mg PO BID muscle spasm 03/25/23 03/25/23 Unknown History bupropion HCl 75 mg tablet 75 mg PO QAM 04/08/23 Unknown History enoxaparin 60 mg/0.6 mL mg subcut 04/08/23 Unknown History subcutaneous syringe Exam Height,Weight and Vital Signs: Height 5 ft 3 in Weight 61.235 kg Last Vital Signs Pulse 70 03/25/23 12:12 Resp 16 03/25/23 12:12 BP 137/72 03/25/23 12:12 Pulse Ox 100 03/25/23 12:12 O2 Del Method Room Air 03/25/23 12:12 Pertinent Lab Results Pertinent Lab Results: Laboratory Tests 12/15/22 06:18 WBC 4.5 L Hgb 13.4 Hct 39.6 Plt Count 320 Sodium 139 Potassium 4.0 Chloride 107 Carbon Dioxide 24 BUN 10 Creatinine 0.62 Narrative Narrative: EKG 01/2023 from [facility] NSR @ 82 Low voltage QRS Borderline EKG No significant change from 09/2022 ECHO 08/2020 LV size is normal. LV wall thickness is normal. LV systolic function is normal. LVEF 55-60% No RWMA LV filling pressures are indeterminate. RV is nml in size and function No change from 07/2020 Cardiac cath with acetylcholine challenge 12/2022 per cardiac office visit note: No obstructive CAD Less than 30% disease in RCA and circumflex, LAD noted to have 50% disease, FFR was normal Acetylcholine challenge showed no microvascular disease Airway Mallampati Class: II TM Dist: >3cm Neck ROM: Limited Heart: RRR Lungs: CTA Assessment and Plan Assessment Anesthesia Assessment: Anesthesia Plan Discussed and PAT Visit Final Anesthetic Review Family History of Problems with Anesthesia: No History of Problems with Anesthesia: No Documented by User: Remi Gray MD 04/10/23 10:34 [facility] Past Medical History Medical History Arthritis Difficulty swallowing Weakness On anticoagulant therapy Lumbar spondylosis Spinal stenosis in cervical region Restless legs syndrome (RLS) Anemia Fatigue Cervical spondylosis Anxiety Bipolar disease, manic Occasional tremors Obstructive sleep apnea Insomnia GERD (gastroesophageal reflux disease) Cardiac microvascular disease TIA (transient ischemic attack) Atrial fibrillation Cardiomyopathy Family History Family History Father Dementia Cancer Mother Cancer COPD (chronic obstructive pulmonary disease) Multiple sclerosis Daughter Myasthenia Surgical History Surgical History History of partial hysterectomy History of tonsillectomy Hx of hand surgery History of radiofrequency ablation procedure for cardiac arrhythmia History of esophagogastroduodenoscopy (EGD) H/O colonoscopy H/O radiofrequency ablation (RFA) of nerve of lumbar spine Hx of cervical spine surgery Hx of shoulder surgery H/O: knee surgery Hx of cholecystectomy History of carpal tunnel release Hx of appendectomy Social History Social History Household Members: Significant Other Housing: House Are you a primary field care coordinator to a significant other at home: No Do you presently have visiting nurse 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 If so, by whom?: No Advance Directives: No Advance Directives Information Provided: No Advance Directives on File: No Recently lost weight without trying: No Eating poorly because of decreased appetite: No Nutrition Risks: No Nutritional Risk Patient : No : No Poor oral hygiene: Yes (full upper denture) service: No Meds Allergies Allergy/AdvReac Type Severity Reaction Status Date / Time penicillin G [Penicillin G] Allergy Mild RASH Verified 04/08/23 13:28 penicillin V Allergy Unknown Abdominal Verified 04/08/23 13:28 Pain mold Allergy Headache Verified 04/08/23 13:28 Ixfebit-[id number]-[id number] Reductase Allergy Weakness Verified 04/08/23 13:28 Inhibitor codeine [Codeine] AdvReac Mild SEVERE Verified 04/08/23 13:28 ABDOMINAL PAIN Home Medications Medication Instructions Recorded Confirmed Last Taken Type apixaban 5 mg tablet (Eliquis) 5 mg PO BID@0900,1900 08/14/22 03/25/23 03/09/23 21:00 History biotin 5,000 mcg disintegrating 10,000 mcg PO DAILY 08/14/22 03/25/23 12/14/22 History tablet estradiol 0.075 mg/24 hr weekly 1 patch transdermal WE@0900 08/14/22 03/25/23 12/11/22 History transdermal patch gabapentin 600 mg tablet 1,200 mg PO DAILY@1900 08/14/22 03/25/23 12/14/22 History methylphenidate HCl 20 mg tablet 10 mg PO TID PRN FATIGUE/CONFUSION 08/14/22 03/25/23 Unknown History omeprazole 20 mg capsule,delayed 20 mg PO DAILY@0630 08/14/22 03/25/23 03/13/23 History release lamotrigine 200 mg tablet,extended 400 mg PO DAILY 11/20/22 03/25/23 03/13/23 History release 24 hr ergocalciferol (vitamin D2) 1,250 1,250 mcg PO Q2W 12/15/22 03/25/23 12/08/22 History mcg (50,000 unit) capsule lorazepam 2 mg tablet 2 mg PO DAILY@2300 12/15/22 03/25/23 12/14/22 History alprazolam 0.5 mg tablet 0.25 mg PO BID PRN Anxiety 10/26/23 11/21/23 Unknown History baclofen 20 mg tablet 20 mg PO BID muscle spasm 03/25/23 03/25/23 Unknown History bupropion HCl 75 mg tablet 75 mg PO QAM 04/08/23 Unknown History enoxaparin 60 mg/0.6 mL mg subcut 04/08/23 Unknown History subcutaneous syringe Assessment and Plan Assessment Anesthesia Assessment: Chart Reviewed Final Anesthetic Review NPO: Yes ASA Class: III Final Preanesthetic Review: No Changes in Pt Med Stat, Meds/Allgs Chart Reviewed, Consent Obtained/Reviewed and Anes Risks/Benef Reviewed Patient Risk: Intermediate Procedure Risk: Intermediate Anesthetic Plan Anesthetic Plan: GA and Agree w/ Assess. and Plan Disposition: Standard PACU
[2023-04-10] VITALS (19 sets, daily range): BP systolic 123–166; BP diastolic 63–95; PULSE 71–94; RESP 10–16; TEMP 36.5–36.9; O2SAT 90–100; BMI 23.7
--- NOTE | ~2023-04-10 | FL_ITS ---
EXAMINATION: XR FLUOROSCOPY WITH IMAGES CLINICAL INFORMATION: ACDF. COMPARISON: Cervical spine MRI December 2022 and fluoroscopy May 2018 of the cervical spine TECHNIQUE: Fluoroscopy Supervised By: Dr. Mitchell Judge. Fluoroscopy Time: 0.0 minutes. Cumulative Dose: 0.409 mGy. DAP: 0.16754 Gycm2. Images: 2. FINDINGS: New ACDF hardware at C3-C4. Stable postoperative changes from ACDF from C4 to C6 similar to previous exams. FL/FL guidance in OR IMPRESSION: Fluoroscopy guidance for cervical spine surgery
--- NOTE | 2023-04-10 07:21 | MHC.SHP ---
Pre-Procedural Eval Section A Date of Service: 04/10/23 The patient is an INPATIENT: No Changes since office visit: No Cold of Flu in the past 2 weeks, No New Medical Problems, No Changes in Medication and No Patient answered all questions The History & Physical has been completed within 30 days and I have reviewed it.: No Section B Chief Complaint: Spinal stenosis, cervical region Allergies: Allergies Allergy/AdvReac Type Severity Reaction Status Date / Time penicillin G [Penicillin G] Allergy Mild RASH Verified 04/08/23 13:28 penicillin V Allergy Unknown Abdominal Verified 04/08/23 13:28 Pain mold Allergy Headache Verified 04/08/23 13:28 Aostqwz-BZY-ZnI Reductase Allergy Weakness Verified 04/08/23 13:28 Inhibitor codeine [Codeine] AdvReac Mild SEVERE Verified 04/08/23 13:28 ABDOMINAL PAIN Review of Systems Sugical H&P ROS: Negative: Constitution, Cardiovascular, Respiratory, Neurological, Psychiatric, Hem-Onc, Allergic/Immunologic, Gastrointestinal, Genitourinary, Musculoskeletal, Integumentary, Endocrine and Eyes/Ears/Nose/Throat Exam Surgical H&P Exam: Not Evaluated: HEENT, Not Evaluated: Heart, Not Evaluated: Lungs, Not Evaluated: Extremities, Not Evaluated: Abdomen, Not Evaluated: Skin and Not Evaluated: Neurological Plan Diagnosis/Plan: Unchanged I have reviewed the history and physical and performed a pertinent physical examination on my patient. No changes have occurred unless specified. C3-4 anterior cervical diskectomy and fusion Time Spent With Patient Time: Total time managing care of this patient today __7__ minutes.
[2023-04-10] MEDS: methocarbamoL 750 MG TABLET PO (11:10)
[2023-04-10] MEDS: Gabapentin 300 MG CAPSULE PO (11:11)
[2023-04-10] MEDS: Lactated Ringers 1,000 ML 100 ML IVCONT (11:22)
[2023-04-10] MEDS: vancomycin HCL 1,000 MG in 0.9 % Sodium Chloride 250 ML 270 MG IV (11:25)
--- NOTE | 2023-04-10 13:17 | W.PM.OPN ---
Operative Note Operative Note Date of Service: 04/10/23 Narrative: Preoperative Diagnosis: Cervical myelopathy. Previous C4-5 and C5-6 fusion another institution. Adjacent degenerative disc disease C3-C4 Procedure: C3-C4 Anterior discectomy, arthrodesis and implantation cage ; [] anterior instrumentation ; local autograft; microscope Informed Consent was obtained for this operation. I have explained the nature, purpose and benefits of the operation. I have discussed the risks and benefit of the operation including possible complications or adverse events with patient/family. Alternative(s) were discussed with the patient with their relative benefits and risks as well as the consequences of not accepting the operation were included in obtaining consent. Surgeon: DEBBIE NICOLAS MD, PHD Procedure Assisted By: VON Gonsales Description of Procedure: This patient previous cervical fusions done in our institution. She presents with symptoms suspicious for cervical myelopathy. An MRI shows adjacent degenerative disc disease C3-C4 with spinal cord compression and a C7-T1 anterolisthesis. it is more likely that the symptoms are coming from the C3-C4 level based on her clinical symptoms and therefore I offered her a decompression of this level. The procedure complications were explained. The patient was consented. The patient was brought to the operating room and endotracheally intubated. The patient was put in supine position with slight extension of the neck. Prep and drape was done followed by timeout. A mid cervical incision was made followed by opening of the platysma. The prevertebral fascia was reached following the natural planes while the physician case assistant provided manual retraction. The prevertebral fascia was opened. The superior border of the previous anterior instrumentation was identified and the adjacent C3-C4 disc space was seen A spinal needle was placed in the disk space to confirm the correct level with xray. The longus colli muscles were released bilaterally and a self retaining retractor was inserted. Two [place] pins were placed in the C3 and C4 vertebral bodies and distraction was give over the interspace. The discectomy was completed toward the posterior annulus of the disc. The microscope was brought in. The remainder of the discectomy was completed. The posterior ligament was opened and resected to expose the underlying dura. Osteophytes were resected from the body of C3 and C4 and saved for autograft. Bilateral foraminotomies were done. The endplates were prepared after which a 6 mm cage filled with autograft was inserted into the disc space. A separate attached plate was locked down with 2 x 14 mm screws as anterior instrumentation. Final x-rays in AP and lateral projection showed a satisfactory position of the implant. The physician case assistant took over. The [place] pin was removed. Hemostasis was done. He closed the incision in 2 layers with a 3-0 Vicryl. Steri-Strips used to approximate incision. An OpSite with Tegaderm was used to cover the incision. All sponge and needle counts were correct. Patient was extubated and transported in stable is to recovery room. Anesthesia: General Estimated Blood Loss (ml): 35 mL Duration of Surgery: 60 minutes Postoperative Plan: Discharge home Complications: None
--- NOTE | 2023-04-10 13:33 | PM.DS ---
DS: Providers Provider Date of Service: 04/10/23 Primary care physician: Gustavo Suarez DO DS: Summary Time Attestation Discharge coordination time: Less than 30 minutes Quality: Safe Use of Opioids Does Pt have an Active Cancer Diagnosis on the Problem List?: No Quality: Stroke Does the patient have a stroke diagnosis?: No Physical Exam Vital Signs: Vital Signs: Last Vital Signs Temp 98.5 F 04/10/23 11:27 Pulse 72 04/10/23 11:27 Resp 16 04/10/23 11:27 BP 123/63 04/10/23 11:27 Pulse Ox 99 04/10/23 11:27 O2 Del Method Room Air 04/10/23 11:27 BMI result Body Mass Index 23.7 Discharge Plan Discharge Patient Disposition: Home, Self-Care Referrals: Gustavo Suarez DO [Primary Care Provider] - 1 Week Discharge Medications: New oxycodone 5 mg tablet 5 mg PO Q6H PRN (Reason: severe pain (scale score 7-10)) Qty: 30 0RF Rx Instructions: Partial Fill upon patient request. acetaminophen 500 mg tablet 1,000 mg PO Q8H PRN (Reason: mild-moderate pain) Qty: 42 1RF docusate sodium 100 mg capsule 100 mg PO BID Qty: 20 0RF Continued (DME) rollator See Rx Instructions .Route .MEDSUPPLY Qty: 1 0RF Rx Instructions: As directed lorazepam 2 mg tablet 2 mg PO DAILY@2300 ergocalciferol (vitamin D2) 1,250 mcg (50,000 unit) capsule 1,250 mcg PO Q2W baclofen 20 mg tablet 20 mg PO BID omeprazole 20 mg capsule,delayed release(DR/EC) 20 mg PO DAILY@0630 methylphenidate HCl 20 mg tablet 10 mg PO TID PRN (Reason: FATIGUE/CONFUSION) estradiol 0.075 mg/24 hr patch weekly 1 patch transdermal WE@0900 biotin 5,000 mcg tablet,disintegrating 10,000 mcg PO DAILY gabapentin 600 mg tablet 1,200 mg PO DAILY@1900 lamotrigine 200 mg tablet extended release 24hr 400 mg PO DAILY alprazolam 0.5 mg tablet 0.25 mg PO BID PRN (Reason: Anxiety) bupropion HCl 75 mg tablet 75 mg PO QAM Held Eliquis 5 mg tablet 5 mg PO BID@0900,1900 Hold Instructions: Resume on 04/13/23. Restart 72 hours after surgery enoxaparin 60 mg/0.6 mL syringe subcut Hold Instructions: Resume on 05/11/23. Discuss need with in class special education teacher / PCP before resuming. Should not need this for bridge therapy. Will be fine to restart Eliquis 72 hours post-operative instead. Discharge Orders: Discharge Order (Routine); Ordered 04/10/23 Ordered By: Cristóbal Singh Diet: Advance to usual diet Activity on Discharge: As tolerated Activity Restrictions/Additional Instructions: After your spinal surgery we ask you to observe the following restrictions/guidelines: Activity: It is normal to feel some discomfort as you increase your activity, but that will improve with time. We ask you avoid heavy lifting or acitivities that cause pain. As a general rule, 8lbs is a safe limit for lifting right after surgery. Walk as much as you feel comfortable but not to exhaustion. You will feel extra tired the first few days after surgery. Stay well hydrated. It is OK to walk up and down stairs You may return to driving when you are off narcotics (such as vicodin, oxycodone, dilaudid, etc), and you are back to normal functional capacity. If you have any concerns please check with office before driving. Return to work is specific to each patient and each surgery, so please speak with your doctor/PA at first follow up. Please bring paperwork such as FMLA at that time if you need it filled out. Medications: We will give you a short supply of narcotics after surgery (usually one weeks worth). If you need more please call the office but do not use more than prescribed. You will need to give our office 48 hours notice if you need narcotics refilled and we do not fill narcotics on weekends or evenings. If you are on a narcotic, it is a good idea to take a stool softener such as colace or senna to avoid constipation If you take blood thinner such as aspirin, Plavix, Coumadin, Effient, Eliquis etc for conditions such as Afib, DVT, Pulmonary embolus, coronary disease, stents etc please speak with your surgeon about specific details as to when you can resume these medications. You can resume NSAIDs on post op day 1 (eg: Motrin, Naproxen, etc). Follow up: Please call the office, , after surgery to arrange a 3 week follow up for wound check. Wound Care: You may remove your dressing on the first day after surgery. You may leave open to air. Please do not remove the steri strips underneath. they will fall off on their own in one week. IT IS NORMAL FOR THE WOUND TO OOZE OR BE BLOODY FOR A FEW DAYS AFTER SURGERY. IF THIS HAPPENS JUST PLACE NEW DRESSING OVER IT TO AVOID STAINING CLOTHES. You may shower on post op day # 1 We ask that you do not let the water soak the wound. If it does get wet, just towel dry lightly. Please do not scrub your incision or place any type of chemical/ointment on the wound. No tub baths, pools or jacuzzis for one month. If you have any leaking or redness from your wound, or fevers, please call the office.
[2023-04-10] MEDS: fentaNYL citrate/PF 100 MCG/2 ML VIAL 25 MCG IVPUSH (15:30)
[2023-04-10] MEDS: HYDROmorphone HCl 0.5 MG/0.5 ML SYRINGE 0.25 MG IVPUSH ×3 (15:42→16:08)
--- NOTE | 2023-04-10 18:08 | PC.NURSE ---
1720 nguyen catheter inserted patient given catheter care education. tolerated procedure well. nguyen draining dilute yellow urine and secured
--- NOTE | 2023-04-10 18:14 | PC.NURSE ---
message to VON, Cristóbal Singh, informed patient aware to call office regarding follow-up appointent. PA notified patient reports very long history of urinary issues including incontinenece/retention and has worked with neurology/PT related to this. Request neurosurgeon office clarify resuming Eliquis on contact tomorrow morning.
== END 2023-04-10 18:16 | disposition home or self-care (01) ==
PROVIDERS: PCP Internal Medicine; Visit Provider Neurological Surgery
PROC: (CPT 22551; principal; 2023-04-10 13:00)
DX: M48.02 Spinal stenosis, cervical region (principal); M50.01 Cervical disc disorder with myelopathy, high cervical region; M47.812 Spondylosis without myelopathy or radiculopathy, cervical region; D64.9 Anemia, unspecified; I25.85 Chronic coronary microvascular dysfunction; G47.33 Obstructive sleep apnea (adult) (pediatric); I48.91 Unspecified atrial fibrillation; R53.83 Other fatigue; G25.81 Restless legs syndrome; Z79.01 Long term (current) use of anticoagulants; Z79.899 Other long term (current) drug therapy; Z88.0 Allergy status to penicillin; Z88.5 Allergy status to narcotic agent; Z88.8 Allergy status to other drugs, medicaments and biological substances; Z98.890 Other specified postprocedural states
CPT/HCPCS: 22551; 22853; 20936; 22845; C1713; J0131; J1100; J1170; J2405; J2704; J3010; J3370; L8699

== ENCOUNTER → 2023-04-10 10:32 | Outpatient (BNV) | payer MEDICARE, OTHER, SELFPAY | PROVIDERS: PCP Internal Medicine; Visit Provider Neurological Surgery | DX: M50.020 Cervical disc disorder with myelopathy, mid-cervical region, unspecified level (principal) | CPT/HCPCS: 20936; 22551; 22845; 22853; 99499 ==

== ENCOUNTER 2023-05-07 09:26 | Outpatient (AMB) | payer MEDICARE, OTHER, SELFPAY ==
--- NOTE | 2023-05-07 09:40 | MHC.OFFVIS ---
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: No Allergies penicillin G [Penicillin G] Allergy (Mild, Verified 04/10/23 10:50) RASH penicillin V Allergy (Unknown, Verified 04/10/23 10:50) Abdominal Pain mold Allergy (Verified 04/10/23 10:50) Headache Kgtdnrx-HCD-NzJ Reductase Inhibitor Allergy (Verified 04/10/23 10:50) Weakness codeine [Codeine] Adverse Reaction (Mild, Verified 04/10/23 10:50) SEVERE ABDOMINAL PAIN PFSH Medical History Arthritis Difficulty swallowing Weakness On anticoagulant therapy Lumbar spondylosis Spinal stenosis in cervical region Restless legs syndrome (RLS) Anemia Fatigue Cervical spondylosis Anxiety Bipolar disease, manic Occasional tremors Obstructive sleep apnea Insomnia GERD (gastroesophageal reflux disease) Cardiac microvascular disease TIA (transient ischemic attack) Atrial fibrillation Cardiomyopathy Surgical History History of partial hysterectomy History of tonsillectomy Hx of hand surgery History of radiofrequency ablation procedure for cardiac arrhythmia History of esophagogastroduodenoscopy (EGD) H/O colonoscopy H/O radiofrequency ablation (RFA) of nerve of lumbar spine Hx of cervical spine surgery Hx of shoulder surgery H/O: knee surgery Hx of cholecystectomy History of carpal tunnel release Hx of appendectomy Family History Father Dementia Cancer Mother Cancer COPD (chronic obstructive pulmonary disease) Multiple sclerosis Daughter Myasthenia Social History Household Members: Significant Other Housing: House Are you a primary customer care consultant to a significant other at home: No Do you presently have visiting nurse 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 She reports she is very satisfied with the surgery and feels much better than she did pre-operatively. She reports she is able to accomplish ADLs the significant issue. She reports no pain, no issues with articulation, no numbness tingling or burning. She states that she is essentially back to feeling normal again. She had no questions/concerns. No neurological deficits. Patient is able to ambulate well, rises from a seated position without difficulty. Incision sites are closed, well healing, with no signs of drainage. We will follow-up with the patient in 6 weeks for her 2nd postoperative visit. At that time we will get x-rays to review with the patient. Cristóbal Judge MD,PhD [facility] Coding Level of Care Code Global (08830) Diagnoses S/P spinal surgery Z98.890
== END 2023-05-07 10:05 | disposition home or self-care (01) ==
PROVIDERS: PCP Internal Medicine; Visit Provider Physician Assistant
DX: Z98.890 Other specified postprocedural states (principal)
CPT/HCPCS: 99024

== ENCOUNTER → 2023-05-07 09:26 | Outpatient (BNVA) | payer MEDICARE, OTHER, SELFPAY | PROVIDERS: PCP Internal Medicine; Visit Provider Physician Assistant | DX: Z47.89 Encounter for other orthopedic aftercare (principal); Z98.890 Other specified postprocedural states | CPT/HCPCS: 99212 ==

== ENCOUNTER 2023-05-16 10:34 | Outpatient (AMB) | payer MEDICARE, OTHER, SELFPAY ==
--- NOTE | 2023-05-16 12:13 | AM.OFFWIN_ITS ---
Intake Vital Signs 05/16/23 12:30 Height 5 ft 2 in Weight 137 lb BMI 25.1 BP 112/70 Blood Pressure Location Lt brachial Position Sitting Pulse 69 Pulse Source Pulse Oximeter Temp 98.0 F Temp Source Temporal Artery Scan Pulse Oximetry (%) 98 Oxygen Delivery Method Room Air Intake Visit Reasons: EST/cough [phone] Intake Note: pt s here today for cough started 04/12 Patient Tobacco Use Status: Never used Tobacco Allergies penicillin G [Penicillin G] Allergy (Mild, Verified 05/16/23 12:13) RASH penicillin V Allergy (Unknown, Verified 05/16/23 12:13) Abdominal Pain mold Allergy (Verified 05/16/23 12:13) Headache Baqkiua-CAP-OfI Reductase Inhibitor Allergy (Verified 05/16/23 12:13) Weakness codeine [Codeine] Adverse Reaction (Mild, Verified 05/16/23 12:13) SEVERE ABDOMINAL PAIN Medication List - Last Reconciled 05/16/23 by Ilene Blank NP acetaminophen 1,000 mg (2 x 500 mg) PO Q8H PRN alprazolam 0.25 mg PO BID PRN apixaban (Eliquis) 5 mg PO BID@0900,1900 baclofen 20 mg PO BID biotin 10,000 mcg PO DAILY bupropion HCl 75 mg PO QAM docusate sodium 100 mg PO BID enoxaparin mg subcut ergocalciferol (vitamin D2) 1,250 mcg PO Q2W estradiol 1 patch transdermal WE@0900 gabapentin 1,200 mg PO DAILY@1900 hydromorphone (Dilaudid) 2 mg PO Q6H lamotrigine ER 400 mg PO DAILY lorazepam 2 mg PO DAILY@2300 methylphenidate HCl 10 mg PO TID PRN omeprazole 20 mg PO DAILY@0630 oxycodone 5 mg PO Q6H PRN [rollator As directed] Do you need a note to return to daycare/school/sports/work: No HPI HPI Comments History of Present Illness Details 63 y/o female presents to [facility] with c/o persistent chronic cough since 04/2023. She had neck/cervical surgery in 04/2023. She had food son ck in her throat due to dsyphagia after surgery. Cough started right after that. She has tried multiple OTC medications with no relief. She was also prescribed Abx (Doxy) and prednisone by her doctor. Reports no symptom relief. Denies fevers, chills, N/V/CP. Pt asking for chest Xray to r/o any other infections. COVID neg, at home done Friday. No recent sick contacts. [facility] Medical History Arthritis Difficulty swallowing Weakness On anticoagulant therapy Lumbar spondylosis Spinal stenosis in cervical region Restless legs syndrome (RLS) Anemia Fatigue Cervical spondylosis Anxiety Bipolar disease, manic Occasional tremors Obstructive sleep apnea Insomnia GERD (gastroesophageal reflux disease) Cardiac microvascular disease TIA (transient ischemic attack) Atrial fibrillation Cardiomyopathy Surgical History History of partial hysterectomy History of tonsillectomy Hx of hand surgery History of radiofrequency ablation procedure for cardiac arrhythmia History of esophagogastroduodenoscopy (EGD) H/O colonoscopy H/O radiofrequency ablation (RFA) of nerve of lumbar spine Hx of cervical spine surgery Hx of shoulder surgery H/O: knee surgery Hx of cholecystectomy History of carpal tunnel release Hx of appendectomy Family History Father Dementia Cancer Mother Cancer COPD (chronic obstructive pulmonary disease) Multiple sclerosis Daughter Myasthenia Social History Household Members: Significant Other Housing: House Are you a primary care taker to a significant other at home: No Do you presently have visiting nurse 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, 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) Alcohol intake: never Comment: counts correct Patient Tobacco Use Status: Never used Tobacco service: No Review of Systems Const All systems reviewed & are unremarkable except as noted in HPI and below Physical Exam Vital Signs: Last Vital Signs Temp 98.0 F 05/16/23 12:30 Pulse 69 05/16/23 12:30 BP 112/70 05/16/23 12:30 Pulse Ox 98 05/16/23 12:30 Oxygen Delivery Method Room Air 05/16/23 12:30 BMI result Body Mass Index 25.1 Const General: no acute distress HEENT Head: Yes normocephalic Ears: external ears normal and TM's normal bilaterally General nose exam: Normal nasal mucous membranes and turbinates present Face and sinus: Yes sinuses nontender Mouth: moist mucous membranes Throat: Yes tonsils normal and Yes uvula midline Resp Effort & Inspection: normal respiratory effort, able to speak in complete sentences, no audible wheezes and Actively coughing Auscultation: clear to auscultation bilaterally Cardio Rate: regular rate Rhythm: regular rhythm Assessment & Plan Assessment & Plan (1) Cough in adult: Code(s): R05.9 - Cough, unspecified Plan: - Unknown etiology of cough - Advised to f/u with PCP for further testings with ENT, GI or Pulmonology. - Might benefit from CT- Scan chest. - Ordered portable Chest Xray today. Orders: Orders XR chest 2V Today R05.9 - Cough, unspecified Coding Level of Care Code Est Pt Level 3 (63517) Diagnoses Cough in adult R05.9 Time Spent (min) 15
[2023-05-16 12:30] VITALS: BP 112/70; PULSE 69; TEMP 36.7; O2SAT 98; BMI 25.1
== END 2023-05-16 13:21 | disposition home or self-care (01) ==
PROVIDERS: PCP Internal Medicine; Visit Provider Nurse Practitioner Family
DX: R05.9 Cough, unspecified (principal)
CPT/HCPCS: 99213

== ENCOUNTER 2023-05-16 12:48 | Outpatient (REF) | payer OTHER, SELFPAY ==
--- NOTE | ~2023-05-16 | XR_ITS ---
EXAMINATION: XR CHEST CLINICAL INFORMATION: Cough. COMPARISON: None available. TECHNIQUE: 2 views of the chest were obtained. FINDINGS: No significant abnormality is noted involving the heart, lungs, mediastinum, bony thorax or soft tissues. XR/XR chest 2V IMPRESSION: Unremarkable chest examination.
== END 2023-05-16 12:49 | disposition home or self-care (01) ==
LOC: HO.HMGCX 12:48
PROVIDERS: PCP Internal Medicine; Visit Provider Nurse Practitioner Family
DX: R05.9 Cough, unspecified (principal)
CPT/HCPCS: 71046

== ENCOUNTER 2023-05-27 14:12 | Outpatient (AMB) | payer MEDICARE, OTHER, SELFPAY ==
--- NOTE | 2023-05-27 14:21 | MHC.OFFVIS ---
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: No Allergies penicillin G [Penicillin G] Allergy (Mild, Verified 05/16/23 12:13) RASH penicillin V Allergy (Unknown, Verified 05/16/23 12:13) Abdominal Pain mold Allergy (Verified 05/16/23 12:13) Headache Ccfbign-PTG-DlJ Reductase Inhibitor Allergy (Verified 05/16/23 12:13) Weakness codeine [Codeine] Adverse Reaction (Mild, Verified 05/16/23 12:13) SEVERE ABDOMINAL PAIN PFSH Medical History Arthritis Difficulty swallowing Weakness On anticoagulant therapy Lumbar spondylosis Spinal stenosis in cervical region Restless legs syndrome (RLS) Anemia Fatigue Cervical spondylosis Anxiety Bipolar disease, manic Occasional tremors Obstructive sleep apnea Insomnia GERD (gastroesophageal reflux disease) Cardiac microvascular disease TIA (transient ischemic attack) Atrial fibrillation Cardiomyopathy Surgical History History of partial hysterectomy History of tonsillectomy Hx of hand surgery History of radiofrequency ablation procedure for cardiac arrhythmia History of esophagogastroduodenoscopy (EGD) H/O colonoscopy H/O radiofrequency ablation (RFA) of nerve of lumbar spine Hx of cervical spine surgery Hx of shoulder surgery H/O: knee surgery Hx of cholecystectomy History of carpal tunnel release Hx of appendectomy Family History Father Dementia Cancer Mother Cancer COPD (chronic obstructive pulmonary disease) Multiple sclerosis Daughter Myasthenia Social History Household Members: Significant Other Housing: House Are you a primary pediatric critical care nurse to a significant other at home: No Do you presently have visiting nurse 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 She continues to endorse relief from her cervical spine surgery. Unfortunately she states that she has had a persistent cough since her surgery. We discussed how this may possibly be due to a underlying viral illness or cold. It can also sometimes be common for the 1st 1-2 weeks after surgery as the body just to the new instrumentation to have a very mild cough. She attempted to obtain antibiotics/anti-inflammatories from her primary care physician, and most recently was on a course of prednisone. She reports no symptom relief since her recent evaluation and medication. She also had a chest x-ray which was unremarkable. She is concerned that she may have had some kind of injury to her throat when she was intubated. I ordered her a set of cervical spine x-rays in order to evaluate the positioning of her instrumentation. There is no significant edema noted around her new instrumentation, and nothing that makes me think she may have something operative causing this issue. No new neurological deficits. Patient is able to ambulate well, rises from a seated position without difficulty. Anterior incision site is closed and well healed. No edema or drainage at or around the incision site. No significant throat swelling, no posterior pharynx erythema or edema. Uvula is midline. No significant lymphadenopathy. No obvious SOB. Ying will be referred to [facility] for evaluation of her continued cough. She was encouraged to relay this information to her primary care provider, who I will send a copy of this note to. She is welcome to follow-up with us in the future she feels as though she needs to be re-evaluated. Cristóbal Judge MD,PhD [facility] Orders: Orders XR cervical spine 4V Today Z98.890 - Other specified postprocedural states Referrals Ear/Nose/Throat Referral R05.9 - Cough, unspecified Coding Level of Care Code Global (52100) Diagnoses S/P spinal surgery Z98.890 Coughing R05.9
== END 2023-05-27 15:51 | disposition home or self-care (01) ==
PROVIDERS: PCP Internal Medicine; Visit Provider Physician Assistant
DX: Z98.890 Other specified postprocedural states (principal); R05.9 Cough, unspecified
CPT/HCPCS: 99024

== ENCOUNTER 2023-05-27 14:12 | Outpatient (REF) | payer OTHER, SELFPAY ==
--- NOTE | ~2023-05-27 | XR_ITS ---
EXAMINATION: XR CERVICAL SPINE CLINICAL INFORMATION: Status-post spine surgery. COMPARISON: Cervical spine radiographs dated 09/05/2017; portions of the MRI cervical spine dated 12/15/2022. TECHNIQUE: Frontal and lateral (neutral, flexion and extension) views of the cervical spine were obtained. FINDINGS: There is bony demineralization. There is moderately severe degenerative disc disease at C2-C3, with a 2 mm anterolisthesis and anterior spondylosis. There is well-maintained alignment status-post C3-C4 through C5-C6 anterior fusions and discectomies, with intact C3-C4 anterior Low Profile fixator device and more inferior C4-C5 and C5-C6 anterior fixator plate, fixator screws and disc spacers. No hardware failure or loosening is seen. There is marked degenerative disc disease at C6-C7 and C7-T1, with anterior spondylosis. No acute fracture or spondylolisthesis is seen. There is no instability with flexion or extension. The posterior elements are intact. There is multi-level cervical spondylosis. The dens is intact. No prevertebral soft tissue swelling is seen. XR/XR cervical spine 4V IMPRESSION: 1. There is well-maintained alignment status-post C3-C4 through C5-C6 anterior fusions and discectomies. No hardware failure or loosening is seen. 2. There is no instability with flexion or extension. 3. There is moderately severe degenerative disc disease at C2-C3, and marked degenerative disc disease seen at C6-C7 and C7-T1. 4. There is multi-level cervical spondylosis.
== END 2023-05-27 14:13 | disposition home or self-care (01) ==
LOC: HO.HOSX 14:12
PROVIDERS: PCP Internal Medicine; Visit Provider Physician Assistant
DX: Z98.890 Other specified postprocedural states (principal); R05.9 Cough, unspecified
CPT/HCPCS: 72050; 99212

== ENCOUNTER 2023-05-29 08:47 | Outpatient (AMB) | payer MEDICARE, OTHER, SELFPAY ==
--- NOTE | 2023-05-29 08:51 | A.OFFVIS_ITS ---
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 Lees. She also underwent C3-4 ACDF on 04/10/[address] Judge. Patient continues to endorse significant pain relief in cervical and lumbar spine areas with improved function and mobility. She developed persistent cough and clearning throat since cervical spine surgery and has pending ENT consultation. Her main issues remain restless leg syndrome, neuropathic pain and episodic muscle spasms in her legs which gets better at times and gives her 1 or 2 months relief and reoccurs without any warning and she would feel very weak, legs would give out and she also would start dropping objects. Patient does not have these symptoms today. She rates her pain at 0/10. Patient has not had any success to obtain another opinion from Neurologists. She was told by Dr. Parisi who since has retired, that her symptoms show MS but had second opinion at [facility] and was told she does not have MS. She gets easily fatigued at times, depressed and anxious and significant all over body pain when symptoms reoccur with muscle spasms, stiffness and weakness. She currently sees Dr. Holman for this and was referred to outside neurology to [facility] in [place], [place] who did not accept her due to having current Neurology provider as well as indefinite diagnosis for her symptoms. She was referred for another opinion to rule out MS or other neuromuscular disorders of peripheral nervous system. Patient is interested to see our Phys [facility] provider for evaluation. Denies any fever, chills, shortness of breaths, chest pain, dizziness, visual disturbances, problems with thinking or planning, pain, mobility or gait disturbance, bladder or bowel dysfunction or saddle anesthesia. PRIOR: Patient presents today for follow up to discuss further steps after positive response to Bilateral Diagnostic L3-L4 DR L5 MBB on 11/19/22 with 100% pain relief for first 3 hours and 70% pain relief for next 2 hours after procedure with improved functioning, daily activities and sleep. Patient reports she is not interested in Sprint PNS trial and is considering lumbar medial branch RFA. She is interested to repeat lumbar diagnostic medial branch block injections in order to establish reproducible response to the treatment for potential RFA. Patient brought in her cervical and lumbar spine images on a disc from [facility], we will forward this to our Radiology department to upload images and reports. Patient also reports she continues to experience frequent dizziness and gait imbalances episodes. Patient reports her neck surgery is on hold and she is planning to follow up with Dr. Judge again at [facility]. She requests refills for cyclobenzaprine and baclofen to help with her restless leg syndrome and muscle cramps in her legs. I will defer muscle relaxants and patient will follow up with her Neurology for RLS and medication adjustment. She may continue Baclofen. Discussed associated fall risks and gait impairment with muscle relaxants. Denies any fever, shortness of breaths, chest pain, bladder or bowel incontinence or saddle anesthesia. PRIOR: Patient presents today for follow up for medication discussion. Patient reports she was recently admitted to inpatient with CVA symptoms and is currently undergoing rehab at [place], [place]. Patient reports left sided weakness, dizziness, unsteady gait and balance problems, restless legs and has arrived via wheelchair. Patient is a accompanied by her brother. She has upcoming neurology follow up next week with Dr. Escobar. Patient requests either refill for Flexeril and Baclofen, increase in Baclofen or another medication to alleviate her significant leg cramping, which is worse by evening and night hours. Given recent events, left side weakness, balance issues, I have discussed with patient and her family that these medication will further put her at risk for falls and impaired gait. Patient is aware of not to stop Baclofen abruptly and has been taking 20 mg BID per [employer] paperwork. She is also taking gabapentin and lorazepam. Denies any fever, shortness of breaths, chest pain, bladder or bowel incontinence or saddle anesthesia. Patient is also suffering from cervical myelopathy and recent cervical MRI findings showed degenerative disc disease and advanced spondylosis with high- grade spinal canal stenosis and cord deformity seen at C3-C4, C5-C6, and C7-T1 with an anterolisthesis at C7-T1. She is scheduled on 01/16/23 per [facility] to undergo neurosurgeryat C3-C4 level which is most severe. She is currently taking Eliquis for Afib and is awaiting cardiac, medical and neurology clearance s/p recent ER visit and hospitalization. Hospital Discharge Summary 12/18/22 Hospital Course: 12/15/22-12/18/22 62-year-old female with past medical his tory of CVA come to the hospital with multiple complaints-please see h&P note(extermity weakness left side and vision change.) hospital course: Patient was admitted initially came with complaining multiple complaints including left side weakness-workup including CTA MRI , EEG was done seems unrevealing. Subsequently she is asymptomatic,no cva ,Seen by Neurology- Possible migraine vs possible anxiety/psychosomatic condition .d/w with patient and neurology -added 25 mg topamax po daily.Patient says she will follow up with her own neurologist outpatient.Patient says she will follow up with her own neurologist outpatient. counseling and therapy and reassurance and education given,patient says she follow up outpatient for mood disorder.continue home meds for mood disorder. for cervical spine spondylosis: she will follow up her neurosurgeon. patient seen by Pt-going to go to rehab, patient may need less than 30 day stay. PRIOR: Patient presents today to assess response to Bilateral Diagnostic L3-L4 DR Cesar NATH on 11/19/[address] Lees. She presents with left eye patch today due to recent corneal abrasion. She reports being seen by her PCP and started antibiotic. Patient reports 100% pain relief for first 3 hours and 70% pain relief for next 2 hours after procedure with improved functioning, daily activities and sleep. Patient reports she was told significant spondylosis noted during her fluoroscopy imaging on 11/19/22. Today her pain is minimal and rated at 1/10. Previously, she reports pain with prolonged sitting and bending forward. Unfortunately, she forgot to bring her lumbar spine MRI on a disc which was completed at [facility] last year. We will send request to [facility] today and patient will drop off the disc when she is able. Denies any recent cough, cold, infection, fever or other significant changes in medical history since last office visit. Patient denies any bladder or bowel incontinence or saddle anesthesia. PRIOR: Patient is a pleasant 62 years old female with prior history of atrial fibrillation currently on Eliquis, hypertension, hyperlipidemia, chronic headaches, RLS, cervical spinal stenosis with myelopathy, presents today with wi despread pain and muscle cramps and spasms in both legs and right upper arm. Denies any past or recent trauma, injury or falls. Patient reports she was previously seen by [facility] with last follow up in 2020. Patient also has significant severe spinal stenosis C3-4, severe degenerative disc disease C6-C7 and anterolisthesis C7-T1 with bilateral foraminal narrowing and stenosis. She sees Dr. Judge for this and has follow up next month. Reports back injections were not helpful. She also completed physical therapy but has not gained improved functioning or pain relief. Patient also reports she has been seen by several neurologists, and has been worked up for MS. She also notes getting second opinion but was told she did not have MS but does have definitive diagnosis. Patient reports her muscle spasms, weakness and spasticity in arms and legs have been progressively getting worse. She also reports intermittent bladder and bowel incontinence, periodically has difficulty finding words and trouble swallowing, loosing dexterity in her hands, loosing her balance and gait frequently and easily tired. Denies saddle anesthesia. Patient reports cyclobenzaprine and gabapentin only partially controlled here pain and spasms. Patient also reports she had right hip replacement on 02/01/22 at [facility] and on 02/2022 she reports loosing all muscle control from neck and all the way down h er legs for which she was hospitalized at [facility] where she was again diagnosed with MS vs seizure. She is concerned for worsening of her symptoms without current definitive diagnosis. Patient is interested to pursue second neurogical evaluation at [facility]. Location Chronic arms and legs pain, low back pain Duration Chronic for 6 years Characteristics of symptom or complaint Cramping, hurting, exhausting, aching, spasming, sore Aggravating or associated factors Movements, walking, standing, Relieving factors Baclofen, Flexeril, gabapentin, lorazepam, heat therapy Treatment PT x 6 years, OTx 5 months, back injection at [facility] Medical History (Updated 05/29/23 @ 09:15 by ZEINA Serrano) Arthritis Difficulty swallowing Weakness On anticoagulant therapy Lumbar spondylosis Spinal stenosis in cervical region Restless legs syndrome (RLS) Anemia Fatigue Cervical spondylosis Anxiety Bipolar disease, manic Occasional tremors Obstructive sleep apnea Insomnia GERD (gastroesophageal reflux disease) Cardiac microvascular disease TIA (transient ischemic attack) Atrial fibrillation Cardiomyopathy Surgical History (Updated 05/29/23 @ 09:47 by ZEINA Serrano) History of partial hysterectomy History of tonsillectomy Hx of hand surgery History of radiofrequency ablation procedure for cardiac arrhythmia History of esophagogastroduodenoscopy (EGD) H/O colonoscopy H/O radiofrequency ablation (RFA) of nerve of lumbar spine Hx of cervical spine surgery Hx of shoulder surgery H/O: knee surgery Hx of cholecystectomy History of carpal tunnel release Hx of appendectomy Family History Father Dementia Cancer Mother Cancer COPD (chronic obstructive pulmonary disease) Multiple sclerosis Daughter Myasthenia Social History Household Members: Significant Other Housing: House Are you a primary plant care worker to a significant other at home: No Do you presently have visiting nurse 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 Alert and oriented. Mood and affect appropriate. Follows and participates in conversation appropriately. Normal spontaneous speech with normal fluency. Respiratory effort is unlabored. Clearing cough. Non-productive cough at times. Able to transition from sit to stand without assistance. Const Orientation/consciousness: oriented to place Eyes Pupils: Equal, round and reactive pupils present Back/Spine/Pelvis Cervical Spine: cervical ROM normal (mildly limited due to recent cervical fusion), Cervical spine scars present (well healed), No Cervical spine tenderness and No step off deformity Thoracic/Lumbar Spine: thoracic and lumbar spine normal to inspection, No Thoracic/lumbar spine scar(s), thoraco-lumbar ROM normal, Lasegue's sign negative, straight leg raise negative bilaterally, No thoracic spinal tenderness and No lumbar spinal tenderness Sacroiliac joints: bilaterally nontender Neuro General: oriented to place, moves all extremities, Normal light touch and pain sensation and CN's II-XI intact bilaterally Cranial nerves: Yes Equal, round and reactive pupils present and Yes Normal hearing present Cognition (Neuro): normal cognition Gait exam (Neuro): Normal gait present Motor exam (neuro): 5/5 motor strength present throughout Sensory Exam: No Sensory deficit (Neuro) Extrem General: Yes capillary refill normal, Yes no clubbing, cyanosis or edema and Yes no calf tenderness Psych Appearance: grossly normal Mental Status: mental status grossly normal Speech and movement: Normal speech and movement present (clears throat and coughs at times) Affect: normal affect and Anxious affect present Attitude: cooperative Thought process: Normal thought process present Thought content: Normal thought content present, suicidality (none), no hallucinations and Depressive thoughts present Insight: Good insight present (Psych) Judgement: Good judgement present (Psych) Results Reviewed Results Reviewed: MR BRAIN AND CERVICAL SPINE WITHOUT AND WITH CONTRAST 12/15/22 CLINICAL INFORMATION: TIA versus MS. Weakness. COMPARISON: None available. TECHNIQUE: Multiplanar, multisequence imaging of the brain and cervical spine was performed before and after the intravenous administration of 6.5 mL of Gadavist. FINDINGS: Brain: There is no acute infarction, mass, hemorrhage, or extra-axial collection. No abnormal or unexpected intracranial enhancement is seen. The ventricles, sulci, and basilar cisterns are normal in size and configuration. Mild nonspecific foci of T2/FLAIR hyperintensity are seen within the cerebral white matter. The flow voids of the major intracranial arteries appear intact. The bones and extracranial soft tissues are within normal limits. There is a small amount of fluid in the right mastoid. Cervical spine: There are postoperative findings related to anterior cervical discectomy and fusion from C4 to C6. There is severe disc height loss at C2-C3, C3-C4, and C7-T1. There is grade 1 anterolisthesis of C7 on T1. No bone marrow edema is seen. There is advanced facet arthropathy particularly on the right at C2-C3 and C3-C4. There is multilevel cord deformity without definite cord edema. No abnormal enhancement is seen within the cervical canal. The extraspinal soft tissues are within normal limits. C2-C3: Disc osteophyte complex with severe right facet arthropathy and uncovertebral hypertrophy resulting in severe right neural foraminal stenosis. No spinal canal stenosis. C3-C4: Disc osteophyte complex with uncovertebral hypertrophy and severe facet arthropathy resulting in severe spinal canal stenosis and severe bilateral neural foraminal stenosis. C4-C5: ACDF. Uncovertebral hypertrophy and facet arthropathy resulting in severe bilateral neural foraminal stenosis and mild to moderate spinal canal stenosis with mild flattening of the left ventral cord. C5-C6: ACDF. Prominent osteophytic ridging in addition to uncovertebral hypertrophy and facet arthropathy resulting in severe spinal canal stenosis with deformation of the ventral cord and severe bilateral neural foraminal stenosis. C6-C7: Disc osteophyte complex with uncovertebral hypertrophy and facet arthropathy resulting in moderate spinal canal stenosis and severe bilateral neural foraminal stenosis. C7-T1: Disc osteophyte complex with ligamentum flavum infolding, uncovertebral and urgency, and facet arthropathy resulting in severe spinal canal stenosis with ventral and dorsal cord deformity and severe bilateral neural foraminal stenosis. IMPRESSION: BRAIN: No acute intracranial abnormality. No infarct, mass, or abnormal enhancement. Mild nonspecific foci of T2/FLAIR hyperintensity within the cerebral white matter. No evidence of definite demyelination. CERVICAL SPINE: Postoperative findings related to anterior cervical discectomy and fusion from C4 to C6. Advanced spondylosis with high-grade spinal canal stenosis and cord deformity seen at C3-C4, C5-C6, and C7-T1. Multilevel high-grade neural foraminal stenosis is also present. Assessment & Plan Assessment & Plan (1) Neuropathy: Code(s): G62.9 - Polyneuropathy, unspecified (2) Muscle spasticity: Code(s): M62.838 - Other muscle spasm (3) Restless legs syndrome (RLS): Code(s): G25.81 - Restless legs syndrome (4) Lumbar spondylosis: Code(s): M47.816 - Spondylosis without myelopathy or radiculopathy, lumbar region (5) Myofascial pain: Code(s): M79.18 - Myalgia, other site (6) Status post cervical spinal fusion: Code(s): Z98.1 - Arthrodesis status Plan Patient is status post bilateral lumbar medial branch RFA in March [address] Lees and cervical spine surgery C3-C4 ACDF on 04/10/[address] Judge. She reports good results and improved function, mobility and sleep. Physiatry Referral to help patient diagnose her neuromuscular intermittent sympt oms of muscle spasms, stiffness, numbness, tingling, and weakness. She is currently taking gabapentin, lorazepam and baclofen. All questions and concerns have been answered and patient agreed with the plan. Follow up as needed. Orders: Referrals Physiatry Referral G25.81 - Restless legs syndrome, G62.9 - Polyneuropathy, unspecified, M62.838 - Other muscle spasm, R53.1 - Weakness Coding Level of Care Code Est Pt Level 4 (33585) Diagnoses Neuropathy G62.9 Muscle spasticity M62.838 Restless legs syndrome (RLS) G25.81 Lumbar spondylosis M47.816 Myofascial pain M79.18 Status post cervical spinal fusion Z98.1
[2023-05-29 08:55] VITALS: BP 143/67; PULSE 92; O2SAT 100; BMI 23.8
== END 2023-05-29 09:13 | disposition home or self-care (01) ==
PROVIDERS: PCP Internal Medicine; Visit Provider Nurse Practitioner Family
DX: G62.9 Polyneuropathy, unspecified (principal); M62.838 Other muscle spasm; G25.81 Restless legs syndrome; M47.816 Spondylosis without myelopathy or radiculopathy, lumbar region; M79.18 Myalgia, other site; Z98.1 Arthrodesis status
CPT/HCPCS: 99214

== ENCOUNTER → 2023-05-29 08:47 | Outpatient (BNVA) | payer MEDICARE, OTHER, SELFPAY | PROVIDERS: PCP Internal Medicine; Visit Provider Nurse Practitioner Family | DX: M47.816 Spondylosis without myelopathy or radiculopathy, lumbar region (principal); M62.838 Other muscle spasm; M79.18 Myalgia, other site; G62.9 Polyneuropathy, unspecified; G25.81 Restless legs syndrome; Z98.1 Arthrodesis status | CPT/HCPCS: 99212 ==

== ENCOUNTER 2023-06-19 14:06 | Outpatient (AMB) | payer MEDICARE, OTHER, SELFPAY ==
--- NOTE | 2023-06-19 14:19 | A.OFFVIS_ITS ---
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 Allergies penicillin G [Penicillin G] Allergy (Mild, Verified 05/29/23 08:57) RASH penicillin V Allergy (Unknown, Verified 05/29/23 08:57) Abdominal Pain mold Allergy (Verified 05/29/23 08:57) Headache [id number] Reductase Inhibitor Allergy (Verified 05/29/23 08:57) Weakness codeine [Codeine] Adverse Reaction (Mild, Verified 05/29/23 08:57) SEVERE ABDOMINAL PAIN [facility] Medical History (Updated 06/19/23 @ 14:39 by VON Smith) Arthritis Difficulty swallowing Weakness On anticoagulant therapy Lumbar spondylosis Spinal stenosis in cervical region Restless legs syndrome (RLS) Anemia Fatigue Cervical spondylosis Anxiety Bipolar disease, manic Occasional tremors Obstructive sleep apnea Insomnia GERD (gastroesophageal reflux disease) Cardiac microvascular disease TIA (transient ischemic attack) Atrial fibrillation Cardiomyopathy Surgical History (Updated 05/29/23 @ 09:47 by ZEINA Serrano) History of partial hysterectomy History of tonsillectomy Hx of hand surgery History of radiofrequency ablation procedure for cardiac arrhythmia History of esophagogastroduodenoscopy (EGD) H/O colonoscopy H/O radiofrequency ablation (RFA) of nerve of lumbar spine Hx of cervical spine surgery Hx of shoulder surgery H/O: knee surgery Hx of cholecystectomy History of carpal tunnel release Hx of appendectomy Family History Father Dementia Cancer Mother Cancer COPD (chronic obstructive pulmonary disease) Multiple sclerosis Daughter Myasthenia Social History Household Members: Significant Other Housing: House Are you a primary career guidance counselor to a significant other at home: No Do you presently have visiting nurse 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 Unfortunately she still had a persistent issue with dysphagia as well as vocal projection after surgery. She tells me that the day she awoke from surgery and starting thereafter she has had difficulty swallowing. Especially liquids are difficult. She is choked once. Generally she is able to get food down but it can be quite painful. She also can not speak loud or and high tones. She does not have hoarseness per se, but rather it becomes painful or she starts coughing if she tries to talk loud. I reviewed her x-rays today in the positioning of the graft looks great. There is some prevertebral swelling but nothing that is appearing to obstruct the trachea. Her wound is well healed and I do not detect any vocal hoarseness in her voice. I think what she is dealing with is the fact that she has had now 3 surgeries through the front of her neck on the right side and a combination of scar tissue as well as going into the C3-4 level where it is well-known that there can be nerve and muscular structures get can affect swallowing, has given her a slow recovery. I do think she will recover over time. She had pre-existing swallowing problems even before the surgery so I think that it has exacerbated it. I gave her a referral for speech and swallow therapy to see if they can assist her with the recovery. I would like to see her back in 6-8 weeks to evaluate. She is due to see a ENT doctor sometime in the upcoming months as well. Jamal Judge MD, PhD [facility] Orders: Referrals Speech and Hearing Referral R13.10 - Dysphagia, unspecified Coding Level of Care Code Global (15046) Diagnoses Difficulty swallowing R13.10
== END 2023-06-19 14:55 | disposition home or self-care (01) ==
PROVIDERS: PCP Internal Medicine; Visit Provider Physician Assistant
DX: R13.10 Dysphagia, unspecified (principal)
CPT/HCPCS: 99024

== ENCOUNTER → 2023-06-19 14:06 | Outpatient (BNVA) | payer MEDICARE, OTHER, SELFPAY | PROVIDERS: PCP Internal Medicine; Visit Provider Physician Assistant | DX: R13.10 Dysphagia, unspecified (principal) | CPT/HCPCS: 99212 ==

== ENCOUNTER 2023-06-30 14:08 | Outpatient (REF) | payer MEDICARE, OTHER, SELFPAY ==
--- NOTE | ~2023-06-30 | FL_ITS ---
EXAMINATION: Modified Barium Swallow CLINICAL INFORMATION: Dysphagia COMPARISON: None TECHNIQUE: Modified barium swallow was performed under lateral fluoroscopy with patient in standing position. Different consistency of barium was administered by the speech therapist. FINDINGS: Patient is status post anterior cervical fusion of C3-C6 with associated ventral plate, screws, and disc grafts. No hardware abnormality or loosening on this static image. Moderate disc degeneration at C2-C3. 2 mm ventral slip of C2 on C3, and C3 on C4. There appears to be bony fusion through the disc spaces of C3-C6. Patient is edentulous. No laryngeal penetration or aspiration was seen during this examination. FLUOROSCOPY TIME: 1 minute 10 seconds Number of Spot Images: 1. DOSE AREA PRODUCT: 411 uGy-m2 (microgray-meter squared) FL/FL barium swallow modified IMPRESSION: Status post anterior cervical fusion C3-C6 without obvious complication. Degenerative spondylosis of the remaining cervical spine. No evidence of laryngeal penetration or aspiration during this examination. Refer to the speech therapy report for further clarification This procedure was performed by Tariq Antonio PA-C, and supervised by Dr. Bains
--- NOTE | 2023-07-01 13:09 | MHC.SL.IMP ---
Date of Plan of Treatment: 06/30/23 Onset of Symptoms/Illness: 12/16/22 Date Treatment Started: 06/30/23 Admitting Diagnosis: Dysphagia Primary Speech & Language Diagnosis: R13.12 Oropharyngeal Phase Dysphagia Reason for Today's Visit: 89025 Modified Barium Swallow Study Pre-evaluation Dietary Consistencies: Regular Pre-evaluation Liquid Consistency: Thin Pre-evaluation Medication Administration: Whole with Liquid Medical History: Reason for Study: Pt reporting difficulty swallowing. Referring Physician: Gustavo Suarez DO Evaluating Clinician: Judy Wolf MA, CCC-SENIOR ELECTRICAL DESIGNER Study Number: 1 Patient Name: Ying Denton Status: Outpatient, Ambulatory Age: 63 Gender: Female Medical History Medical History (Updated 06/19/23 @ 14:39 by VON Smith) Arthritis Difficulty swallowing Weakness On anticoagulant therapy Lumbar spondylosis Spinal stenosis in cervical region Restless legs syndrome (RLS) Anemia Fatigue Cervical spondylosis Anxiety Bipolar disease, manic Occasional tremors Obstructive sleep apnea Insomnia GERD (gastroesophageal reflux disease) Cardiac microvascular disease TIA (transient ischemic attack) Atrial fibrillation Cardiomyopathy Surgical History (Updated 05/29/23 @ 09:47 by ZEINA Serrano) History of partial hysterectomy History of tonsillectomy Hx of hand surgery History of radiofrequency ablation procedure for cardiac arrhythmia History of esophagogastroduodenoscopy (EGD) H/O colonoscopy H/O radiofrequency ablation (RFA) of nerve of lumbar spine Hx of cervical spine surgery Hx of shoulder surgery H/O: knee surgery Hx of cholecystectomy History of carpal tunnel release Hx of appendectomy Current (pre-evaluation) Intake/Diet: Route: PO Diet Grade: Regular Liquid Consistencies: Thin Pre-Study Functional Oral Intake Scale (FOIS): 7- Total oral intake with no restrictions Pain: None reported at time of study SUBJECTIVE: Patient is a 63 year old female referred for a modified barium swallow study by Gustavo Suarez DO. Patient?s history includes occasional tremors, obstructive sleep apnea, GERD, TIA, cardiac microvascular disease, cardiomyopathy. A few months ago, patient underwent a C3-4 anterior cervical discectomy and fusion. Since her surgery, patient reported having increased difficulty swallowing, especially with liquids. Patient reports having choked once before. She says she is able to get food down but it can be painful. Additionally, patient reported difficulty speaking loudly or using a high pitch, as attempting to do so will cause her pain and she will start coughing. Patient?s x-rays were reviewed by her PA. Per PA report, ?the positioning of the graft was noted to look great. There is some prevertebral swelling but nothing that is appearing to obstruct the trachea. Her wound is well healed.? PA believed that patient?s pre-existing dysphagia may have been exacerbated by the development of scar tissue after having 3 neck surgeries. Patient was previously seen by SENIOR ELECTRICAL DESIGNER when admitted to the hospital in December 2022 for workup of CVA symptoms. Patient did have prior history of dysphagia and had MBSS done at [facility] earlier in 2022 or 2021. She was diagnosed with pharyngeal phase dysphagia at the time and was advised to eat softer foods and to alternate solids with sips of liquids. She has been on an unmodified diet since then. Food and Liquid Trials: Oral Impairment: Lip Closure: Did not test Oral Impairment: Tongue Control During Bolus Hold: 1=Escape to lateral buccal cavity/floor of mouth (FOM) Oral Impairment: Bolus Preparation/Mastication: 1=Slow prolonged chewing/mashing with complete re-collection Oral Impairment: Bolus Transport/Lingual Motion: 2=Slowed tongue motion Oral Impairment: Oral Residue: 2=Residue collection on oral structures Oral Impairment:Initiation of Pharyngeal Swallow: 3=Bolus head in pyriforms Pharyngeal Impairment: Soft Palate Elevation: 0=No bolus between soft palate (SP)/pharyngeal wall (PW) Pharyngeal Impairment: Laryngeal Elevation: 1=Partial thyroid cartilage/arytenoids to epiglottic petiole movement Pharyngeal Impairment: Anterior Hyoid Excursion: 1=Partial anterior movement Pharyngeal Impairment: Epiglottic Movement: 0=Complete inversion Pharyngeal Impairment: Laryngeal Vestibular Closure:: 0=Complete: no air/contrast in laryngeal vestibule Pharyngeal Impairment: Pharyngeal Stripping Wave: 0=Present: complete Pharyngeal Impairment: Pharyngeal Contraction: Did not test Pharyngeal Impairment: Pharyngoesophageal Segment Openin=Partial distention/partial duration: partial obstruction of flow Pharyngeal Impairment: Tongue Base (TB) Retraction: 2=Narrow column of contrast/air between TB and posterior PW Pharyngeal Impairment: Pharyngeal Residue: 2=Collection of residue within or on pharyngeal structures Pharyngeal Impairment: Esophageal Clearance Upright Position: Did not test Impressions and Recommendations OBJECTIVE: Time-out: performed at 15:00 Evaluation Start: 14:30; Stop: 14:35 Patient Positioning: Standing Viewing Planes: LATERAL ONLY Contrast: MBSImP? Standardized Protocol using commercially prepared, standardized Barium viscosities, including: Varibar? THIN LIQUID (40% w/v, <15 cps) , 1/2 Shortbread Cookie (1 x1 x.25 ) MBSImP ID: [id number] MBSImP Results: Lip closure for intraoral bolus containment could not be assessed due to logistical reasons not related to physiologic impairment. Tongue control during bolus hold allowed bolus escape to the lateral buccal cavity/floor of mouth. Bolus preparation and mastication resulted in slow, prolonged chewing/mashing but with complete re-collection. Bolus transport/lingual motion was with slowed tongue motion. Oral residue was a collection on oral structures. Initiation of the pharyngeal swallow occurred when the bolus head was in the pyriform sinuses. Soft palate elevation resulted in no bolus between the soft palate and the pharyngeal wall. Laryngeal elevation was decreased, with partial superior movement of the thyroid cartilage/partial approximation of the arytenoids to the epiglottic petiole. Anterior hyoid excursion demonstrated partial anterior movement. Epiglottic movement resulted in complete inversion. Laryngeal vestibular closure was complete, as indicated by no air or contrast within the laryngeal vestibule at the height of the swallow. Pharyngeal stripping wave was present and complete. Pharyngeal contraction could not be determined due to logistical reasons not related to physiologic impairment. Pharyngoesophageal segment opening demonstrated partial distension/partial duration, with partial obstruction of bolus flow. Tongue base retraction allowed a narrow column of contrast or air between the retracted tongue base and the posterior pharyngeal wall. Pharyngeal residue was a collection of residue within or on pharyngeal structures. Esophageal clearance in the upright position could not be assessed due to logistical reasons not related to physiologic impairment. Oral Impairment Score: 9 (absence of score, component 1) Pharyngeal Impairment Score: 7 (absence of score, component 13) Esophageal Impairment Score: --- (absence of score, component 17) Laryngeal Penetration and Aspiration: Neither penetration nor aspiration was observed in today's study with Cookie, Thin. Structural Abnormalities Noted: Cervical hardware noted, and may have contributed to retention of contrast on pharyngeal structures, but this was minimal, otherwise did not appear to have any other significant impact on swallow function. ASSESSMENT: This exam was performed by the speech pathologist and the radiologist. Patient trialed thin, pureed, and regular solid consistencies. Note reduced bolus control, with some pooling of contrast to the floor of mouth. Initiation of posterior lingual transport was delayed with slowed movement. Mastication was also slowed, characterized by piece meal deglutition, with patient swallowing 1-2 times in order to clear the oral cavity. The pharyngeal swallow trigger was delayed, initiated as the bolus head reached the pyriforms. Noted partial laryngeal elevation. Complete epiglottic inversion. Complete laryngeal vestibular closure. No evidence of aspiration or penetration during this exam. There was mild residue on the tongue base and in the vallecuale and pyriforms which cleared with dry swallow and liquid wash strategies. Liquid Intake Recommendation: Thin Liquid Intake Strategies: Small Sips, No Straws Dietary Recommendations: Regular Medication Administration: Whole with Puree Please contact the pharmacy regarding appropriate crushable or liquid drug formulations that are available whenever modified delivery is recommended. Compensatory Strategies Recommended: Sitting Upright (90 deg), Double Swallow, No Straw, Small Bites and Sips, Alternate Liquids/Solids, Rate of Ingestion Change, Avoid Specific Foods Supervision during eating and or drinking: None Needed Recommendation for Speech Therapy: NA:Typical Evaluation PLAN: Intake Recommendations: Route: PO Diet Grade: Regular Liquid Consistencies: Thin Post-Study Functional Oral Intake Scale (FOIS): 6- Total oral intake with no special preparation, but must avoid specific foods or liquid items Exam revealed mild oropharyngeal dysphagia. Delayed oral phase with slowed lingual movements and prolonged period of mastication. Delayed pharyngeal swallow. Mild oral and pharyngeal residue cleared with dry swallow and liquid wash strategies. No evidence of aspiration or penetration during this exam. Recommend pt continue on regular texture diet and thin liquids. The following strategies are recommended to maximize safety: -Avoid foods which are tough, dry, sticky, or crunchy; avoid mixed consistencies -Take small bites -Follow each bite with a dry swallow and/or a sip of liquid to promote oral and pharyngeal clearance -Clear oral cavity before taking more bites -Take small, individual sips -Avoid the use of straws -Maintain 90 degree position during PO intake and for at least 30 minutes afterwards Suggested Referrals: The patient might benefit from a referral to: Otolaryngology Indication for Referral: Patient complains of changes to her voice after having neck surgery. Recommend ENT referral followed by a voice evaluation with a speech pathologist if indicated. Therapy Recommendations: Therapy will be discontinued. Dysphagia treatment is not warranted at this time. Patient is encouraged to monitor her dysphagia. If she experiences any changes or if her symptoms worsen, a repeat-evaluation may be indicated. The following compensatory strategies and/or therapeutic exercises will be part of the upcoming therapy/management plan: Liquid Wash Additional Swallow(s) per Bolus Clinician - Supplemental, Miscellaneous Communication: It is important to note MBSS objective studies are snapshots in time and Patient function might vary with factors such as time of day or concomitant medical conditions. For this reason, the final treatment plan for this patient should rest with their medical care team. Additional recommendations should be considered with the totality of the Patient in mind. Thank for the opportunity to participate in the care of this patient. If you have any questions about the content of this report, please contact the [facility] at [facility]. Education: Education regarding findings from today's study and plans for therapy were provided to Patient only through Verbal Instruction. Understanding was expressed by the Patient only. Copper Miner Blasting Clinician/Clinical Fellow: No Supervisory Statement: N/A Speech Language Pathologist: Judy Wolf M.A., CCC-SENIOR ELECTRICAL DESIGNER
== END 2023-06-30 14:09 | disposition home or self-care (01) ==
LOC: HO.XRAY 14:08
PROVIDERS: Visit Provider Internal Medicine
DX: R13.10 Dysphagia, unspecified (principal)
CPT/HCPCS: 74230; 92611

== ENCOUNTER → 2023-06-30 14:09 | Outpatient (BNV) | payer MEDICARE, OTHER, SELFPAY | PROVIDERS: Visit Provider Physician Assistant Surgical | DX: R13.10 Dysphagia, unspecified (principal) | CPT/HCPCS: 74230 ==

== ENCOUNTER 2023-07-01 09:40 | Outpatient (REF) | payer MEDICARE, OTHER, SELFPAY ==
[2023-07-01 13:20] LABS: MANUAL DIFF FLAG NO
[2023-07-01 13:33] LABS: Basophils Percent Auto 0.3 % (0-2); Eosinophils Absolute Auto 0.1 X10*3/uL (0.0-0.4); Eosinophils Percent Auto 1.9 % (0-4); Hematocrit 41.8 % (37.0-47.0); Hemoglobin 13.7 g/dl (12.0-16.0); Imm Gran Abs Auto 0.01 X10*3/uL (0.00-0.03); Imm Gran Pct Auto 0.3 % (0.0-0.4); Lymphocytes Absolute Auto 1.4 X10*3/uL (1.2-4.9); Lymphocytes Percent Auto 38.1 % (20-40); Mean Corpuscular HGB Conc 32.8 g/dl (31.0-35.0); Mean Corpuscular Hemoglobin 30.8 pg (27.0-33.0); Mean Corpuscular Volume 93.9 fL (80.0-98.0); Mean Platelet Volume 10.3 fL (9.4-12.3); Monocytes Absolute Auto 0.3 X10*3/uL (0.1-1.2); Monocytes Percent Auto 8.3 % (2-11); Neutrophils Absolute Auto 1.9 x10*3/uL (2.0-8.3); Neutrophils Percent Auto 51.1 % (45-73); Platelet Count 292 X10*3/uL (160-400); Red Blood Count 4.45 X10*6/uL (4.20-5.50); Red Cell Distribution Width 13.5 % (11.0-16.0); White Blood Count 3.6 X10*3/uL (4.8-10.8)
[2023-07-01 13:54] LABS: Alanine Aminotransferase 14 U/L (0-31); Albumin Level 4.5 g/dL (3.5-5.0); Alkaline Phosphatase 70 U/L (39-117); Anion Gap 11 (12-20); Aspartate Amino Transferase 25 U/L (5-31); Bilirubin Total 0.7 mg/dL (0.0-1.0); Blood Urea Nitrogen 10 mg/dL (9-16); Calcium 9.6 mg/dL (8.4-10.2); Carbon Dioxide 27 mmol/L (22-29); Chloride 107 mmol/L (96-108); Cholesterol 246 mg/dL (<200); Estimated Glomerular Filt Rate > 60; Glucose Fasting 85 mg/dL (60-99); HDL Cholesterol 77 mg/dL (>40); LDL Cholesterol Calculated 147 mg/dL (<100); Potassium 4.1 mmol/L (3.3-5.1); Sodium 141 mmol/L (135-145); Total Protein 7.8 g/dL (6.5-8.0); Triglycerides 110 mg/dL (<150)
== END 2023-07-01 09:41 | disposition home or self-care (01) ==
LOC: HO.HMGCLDS 09:40
PROVIDERS: PCP Internal Medicine; Visit Provider Internal Medicine
DX: F31.62 Bipolar disorder, current episode mixed, moderate (principal); N39.46 Mixed incontinence; M54.12 Radiculopathy, cervical region; I20.1 Angina pectoris with documented spasm; I48.0 Paroxysmal atrial fibrillation; M62.838 Other muscle spasm
CPT/HCPCS: 36415; 80053; 80061; 84443; 85025

== ENCOUNTER 2023-07-16 23:45 | Emergency (ER) | payer MEDICARE, OTHER, SELFPAY ==
[2023-07-17 00:04] VITALS: BP 153/77; PULSE 84; RESP 16; TEMP 36.6; O2SAT 99; BMI 24.4
[2023-07-17 00:30] LABS: MANUAL DIFF FLAG NO
[2023-07-17 00:31] LABS: Basophils Percent Auto 0.4 % (0-2); Eosinophils Absolute Auto 0.1 X10*3/uL (0.0-0.4); Eosinophils Percent Auto 1.4 % (0-4); Hematocrit 34.9 % (37.0-47.0); Hemoglobin 12.1 g/dl (12.0-16.0); Imm Gran Abs Auto 0.01 X10*3/uL (0.00-0.03); Imm Gran Pct Auto 0.2 % (0.0-0.4); Lymphocytes Percent Auto 40.6 % (20-40); Mean Corpuscular HGB Conc 34.7 g/dl (31.0-35.0); Mean Corpuscular Hemoglobin 30.9 pg (27.0-33.0); Mean Platelet Volume 9.6 fL (9.4-12.3); Monocytes Absolute Auto 0.5 X10*3/uL (0.1-1.2); Monocytes Percent Auto 10.3 % (2-11); Neutrophils Absolute Auto 2.3 x10*3/uL (2.0-8.3); Neutrophils Percent Auto 47.1 % (45-73); Platelet Count 268 X10*3/uL (160-400); Red Blood Count 3.92 X10*6/uL (4.20-5.50); Red Cell Distribution Width 13.4 % (11.0-16.0)
[2023-07-17 00:45] LABS: Alanine Aminotransferase 12 U/L (0-31); Albumin Level 4.2 g/dL (3.5-5.0); Alkaline Phosphatase 63 U/L (39-117); Anion Gap 12 (12-20); Aspartate Amino Transferase 22 U/L (5-31); Bilirubin Total 0.5 mg/dL (0.0-1.0); Blood Urea Nitrogen 12 mg/dL (9-16); Calcium 9.4 mg/dL (8.4-10.2); Carbon Dioxide 25 mmol/L (22-29); Chloride 109 mmol/L (96-108); Creatinine Clr Calc Pharmacy 75.6; Estimated Glomerular Filt Rate > 60; Glucose Random 93 mg/dL (60-115); Lipase 19 U/L (8-78); Potassium 3.6 mmol/L (3.3-5.1); Sodium 142 mmol/L (135-145); Total Protein 7.1 g/dL (6.5-8.0)
[2023-07-17 01:48] VITALS: BP 163/78; PULSE 68; RESP 16; TEMP 36.6; O2SAT 97
--- NOTE | 2023-07-17 02:20 | ED.ABDPAIN ---
HPI - Abdominal Pain General Chief Complaint: Abdominal Pain Stated Complaint: Headache/Anxiety/?Dehydrated Time Seen by Provider: 07/17/23 02:17 Source: patient Mode of arrival: ambulatory Limitations: no limitations History of Present Illness HPI narrative: Patient history of chronic constipation been to [facility] 2 times in last [address] scan done last week which was negative comes here for as she feels dehydrated patient took prune juice and had a good bowel movement today no fever no chills no blood in the stool patient was given Dilaudid at other hospital Related Data Home Medications Medication Instructions Recorded Confirmed apixaban 5 mg tablet (Eliquis) 5 mg PO BID@0900,1900 08/14/22 05/16/23 biotin 5,000 mcg disintegrating 10,000 mcg PO DAILY 08/14/22 05/16/23 tablet estradiol 0.075 mg/24 hr weekly 1 patch transdermal WE@0900 08/14/22 05/16/23 transdermal patch gabapentin 600 mg tablet 1,200 mg PO DAILY@1900 08/14/22 05/16/23 methylphenidate HCl 20 mg tablet 10 mg PO TID PRN FATIGUE/CONFUSION 08/14/22 05/16/23 omeprazole 20 mg capsule,delayed 20 mg PO DAILY@0630 08/14/22 05/16/23 release lamotrigine 200 mg tablet,extended 400 mg PO DAILY 11/20/22 05/16/23 release 24 hr ergocalciferol (vitamin D2) 1,250 1,250 mcg PO Q2W 12/15/22 05/16/23 mcg (50,000 unit) capsule lorazepam 2 mg tablet 2 mg PO DAILY@2300 12/15/22 05/16/23 alprazolam 0.5 mg tablet 0.25 mg PO BID PRN Anxiety 02/27/23 05/16/23 baclofen 20 mg tablet 20 mg PO BID muscle spasm 03/25/23 05/16/23 bupropion HCl 75 mg tablet 75 mg PO QAM 04/08/23 05/16/23 enoxaparin 60 mg/0.6 mL mg subcut 04/08/23 05/16/23 subcutaneous syringe valacyclovir 500 mg tablet 500 mg PO BID 05/29/23 Previous Rx's Medication Instructions Recorded rollator #1 ea 12/23/22 acetaminophen 500 mg tablet 1,000 mg (2 x 500 mg) PO Q8H PRN 04/10/23 mild-moderate pain #42 tabs docusate sodium 100 mg capsule 100 mg PO BID constipation #20 caps 04/10/23 oxycodone 5 mg tablet 5 mg PO Q6H PRN severe pain (scale 04/10/23 score 7-10) #30 tabs hydromorphone 2 mg tablet 2 mg PO Q6H #30 tabs 04/11/23 (Dilaudid) magnesium hydroxide 400 mg/5 mL 15 ml PO BEDTIME PRN constipation 07/17/23 oral suspension (Milk of Magnesia) #355 mL Allergies Allergy/AdvReac Type Severity Reaction Status Date / Time penicillin G [Penicillin G] Allergy Mild RASH Verified 05/29/23 08:57 penicillin V Allergy Unknown Abdominal Verified 05/29/23 08:57 Pain mold Allergy Headache Verified 05/29/23 08:57 [id number] Reductase Allergy Weakness Verified 05/29/23 08:57 Inhibitor codeine [Codeine] AdvReac Mild SEVERE Verified 05/29/23 08:57 ABDOMINAL PAIN Review of Systems Review of Systems Yes all other systems are reviewed and are negative [facility] Past Medical History Medical History Arthritis Difficulty swallowing Weakness On anticoagulant therapy Lumbar spondylosis Spinal stenosis in cervical region Restless legs syndrome (RLS) Anemia Fatigue Cervical spondylosis Anxiety Bipolar disease, manic Occasional tremors Obstructive sleep apnea Insomnia GERD (gastroesophageal reflux disease) Cardiac microvascular disease TIA (transient ischemic attack) Atrial fibrillation Cardiomyopathy Surgical History History of partial hysterectomy History of tonsillectomy Hx of hand surgery History of radiofrequency ablation procedure for cardiac arrhythmia History of esophagogastroduodenoscopy (EGD) H/O colonoscopy H/O radiofrequency ablation (RFA) of nerve of lumbar spine Hx of cervical spine surgery Hx of shoulder surgery H/O: knee surgery Hx of cholecystectomy History of carpal tunnel release Hx of appendectomy Family History Family History Father Dementia Cancer Mother Cancer COPD (chronic obstructive pulmonary disease) Multiple sclerosis Daughter Myasthenia Social History Social History Household Members: Significant Other Housing: House Are you a primary healthcare receptionist to a significant other at home: No Do you presently have visiting nurse 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, 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) Alcohol intake: never Comment: counts correct Patient Tobacco Use Status: Never used Tobacco Smoked in Last 30 Days: No Use of substances other than those prescribed or required for medical reasons: No Advance Directives: No Advance Directives Information Provided: Yes Patient : No service: No Physical Exam ED Vital Signs: Vital Signs - 24 hr 07/17/23 00:04 07/17/23 01:48 07/17/23 02:58 Temperature 97.8 F 97.8 F Pulse Rate 84 68 74 Respiratory Rate 16 16 Blood Pressure 153/77 H 163/78 H 163/73 H Pulse Oximetry 99 97 Oxygen Delivery Method Room Air Room Air 07/17/23 02:59 07/17/23 03:00 07/17/23 03:18 Temperature 97.7 F Pulse Rate 79 83 71 Respiratory Rate 18 Blood Pressure 158/83 H 152/94 H 158/71 H Pulse Oximetry 98 Oxygen Delivery Method Room Air BMI result Body Mass Index 24.4 Appearance: Alert. Oriented X3. No acute distress. Eyes: No pallor ENT: Pharynx normal. Oral Mucosa moist Neck: Normal inspection. Neck supple. CVS: Normal heart rate and rhythm. Pulses normal. Respiratory: No respiratory distress. Equal air entry bilateral, no wheezing/rales/rhonchi Abdomen: Soft, mild suprapubic discomfort, Bowel sounds are present, no mass palpable, no CVA tenderness Skin: Skin warm and dry. Normal skin color. Normal skin turgor. Extremities: No lower extremity edema. No calf tenderness Neuro: Oriented X 3. No motor deficit. Medical Decision Making Medical Decision Making [facility] Narrative: Patient with constipation moving her bowels today head CT scan done within last 2 weeks which was negative at [facility] patient is not dehydrated at this time will advised to continue to drink plenty of fluids and stool softener Differential Diagnosis Differential Diagnoses: The differential diagnosis associated with the presentation includes Lab Data [facility] Lab Attestation statement: I reviewed the patient's lab results. 07/17/23 00:26 07/17/23 00:26 Labs: Lab Results 07/17/23 07/17/23 Range/Units 00:26 03:18 WBC 5.0 (4.8-10.8) X10*3/uL RBC 3.92 L (4.20-5.50) X10*6/uL Hgb 12.1 (12.0-16.0) g/dl Hct 34.9 L (37.0-47.0) % MCV 89.0 (80.0-98.0) fL MCH 30.9 (27.0-33.0) pg MCHC 34.7 (31.0-35.0) g/dl RDW 13.4 (11.0-16.0) % Plt Count 268 (160-400) X10*3/uL MPV 9.6 (9.4-12.3) fL Immature Gran % (Auto) 0.2 (0.0-0.4) % Neut % (Auto) 47.1 (45-73) % Lymph % (Auto) 40.6 H (20-40) % [place] % (Auto) 10.3 (2-11) % Eos % (Auto) 1.4 (0-4) % Baso % (Auto) 0.4 (0-2) % Lymph # (Auto) 2.0 (1.2-4.9) X10*3/uL [place] # (Auto) 0.5 (0.1-1.2) X10*3/uL Eos # (Auto) 0.1 (0.0-0.4) X10*3/uL Baso # (Auto) 0.0 (0.0-0.2) X10*3/uL Abs Immat Gran (auto) 0.01 (0.00-0.03) X10*3/uL Absolute Neuts (auto) 2.3 (2.0-8.3) x10*3/uL Absolute Nucleated RBC 0.000 (0.0-0.012) X10*3/uL Nucleated RBC % (auto) 0.0 (0.0-0.2) /100WBC Sodium 142 (135-145) mmol/L Potassium 3.6 (3.3-5.1) mmol/L Chloride 109 H (96-108) mmol/L Carbon Dioxide 25 (22-29) mmol/L Anion Gap 12 (12-20) BUN 12 (9-16) mg/dL Creatinine 0.63 (0.5-1.4) mg/dL Estim Creat Clear Calc 75.6 Estimated GFR > 60 Random Glucose 93 (60-115) mg/dL Calcium 9.4 (8.4-10.2) mg/dL Total Bilirubin 0.5 (0.0-1.0) mg/dL AST 22 (5-31) U/L ALT 12 (0-31) U/L Alkaline Phosphatase 63 (39-117) U/L Total Protein 7.1 (6.5-8.0) g/dL Albumin 4.2 (3.5-5.0) g/dL Lipase 19 (8-78) U/L Urine Color Yellow Urine Appearance Clear Urine pH 7.0 (5.0-9.0) Ur Specific [place] 1.010 (1.005-1.025) Urine Protein Negative (Neg-Trace) mg/dL Urine Glucose (UA) Negative (Negative) mg/dL Urine Ketones Negative (Negative) mg/dL Urine Blood Negative (Negative) Urine Nitrite Negative (Negative) Ur Leukocyte Esterase Negative (Negative) Discharge Plan Discharge Clinical Impression: Chronic constipation Patient Disposition: Home, Self-Care Instructions: Constipation (ED) Additional Instructions: Drink plenty of fluids Take constipation medication as prescribed byyour PCP Milk of magnesia for severe constipation Follow with PCP Prescriptions: New magnesium hydroxide [Milk of Magnesia] 400 mg/5 mL suspension 15 ml PO BEDTIME PRN (Reason: constipation) Qty: 355 0RF No Action (DME) rollator See Rx Instructions .Route .MEDSUPPLY Qty: 1 0RF Rx Instructions: As directed hydromorphone [Dilaudid] 2 mg tablet 2 mg PO Q6H Qty: 30 0RF Rx Instructions: Partial Fill upon patient request. lorazepam 2 mg tablet 2 mg PO DAILY@2300 ergocalciferol (vitamin D2) 1,250 mcg (50,000 unit) capsule 1,250 mcg PO Q2W baclofen 20 mg tablet 20 mg PO BID oxycodone 5 mg tablet 5 mg PO Q6H PRN (Reason: severe pain (scale score 7-10)) Qty: 30 0RF Rx Instructions: Partial Fill upon patient request. acetaminophen 500 mg tablet 1,000 mg PO Q8H PRN (Reason: mild-moderate pain) Qty: 42 1RF docusate sodium 100 mg capsule 100 mg PO BID Qty: 20 0RF Eliquis 5 mg tablet 5 mg PO BID@0900,1900 Hold Instructions: Resume on 04/13/23. Restart 72 hours after surgery omeprazole 20 mg capsule,delayed release(DR/EC) 20 mg PO DAILY@0630 methylphenidate HCl 20 mg tablet 10 mg PO TID PRN (Reason: FATIGUE/CONFUSION) estradiol 0.075 mg/24 hr patch weekly 1 patch transdermal WE@0900 biotin 5,000 mcg tablet,disintegrating 10,000 mcg PO DAILY gabapentin 600 mg tablet 1,200 mg PO DAILY@1900 lamotrigine 200 mg tablet extended release 24hr 400 mg PO DAILY alprazolam 0.5 mg tablet 0.25 mg PO BID PRN (Reason: Anxiety) bupropion HCl 75 mg tablet 75 mg PO QAM enoxaparin 60 mg/0.6 mL syringe subcut Hold Instructions: Resume on 05/11/23. Discuss need with aeronautics teacher / PCP before resuming. Should not need this for bridge therapy. Will be fine to restart Eliquis 72 hours post-operative instead. valacyclovir 500 mg tablet 500 mg PO BID
[2023-07-17 02:58] VITALS: BP 163/73; PULSE 74
[2023-07-17 02:59] VITALS: BP 158/83; PULSE 79
[2023-07-17 03:00] VITALS: BP 152/94; PULSE 83
[2023-07-17 03:18] VITALS: BP 158/71; PULSE 71; RESP 18; TEMP 36.5; O2SAT 98
--- NOTE | 2023-07-17 03:20 | MHC.EDTECH ---
Patient ambulated to the bathroom with a steady gait,urine sample obtained and sent to lab, Hourly rounds and vitals completed,call serrano in reach
[2023-07-17 03:30] LABS: Appearance Urine Clear; Color Urine Yellow; Glucose Urine UA Negative (Negative); Leukocyte Esterase Urine Negative (Negative); Nitrite Urine Negative (Negative); Urine Blood Negative (Negative); Urine Ketones Negative (Negative); Urine Protein Negative (Neg-Trace)
== END 2023-07-17 04:07 | disposition home or self-care (01) ==
PROVIDERS: Emergency Provider Internal Medicine; PCP Internal Medicine
DX: K59.00 Constipation, unspecified (principal); Z79.899 Other long term (current) drug therapy
CPT/HCPCS: 36415; 80053; 81003; 83690; 85025; 99283; 99284

== ENCOUNTER 2023-07-31 13:43 | Outpatient (AMB) | payer MEDICARE, OTHER, SELFPAY ==
--- NOTE | 2023-07-31 13:50 | A.SPINEOV_ITS ---
Intake Intake Visit Reasons: 6 week follow up Intake Note: Ms. Denton is here today for a 6 week F/u Level Designer Required: No Allergies penicillin G [Penicillin G] Allergy (Mild, Verified 05/29/23 08:57) RASH penicillin V Allergy (Unknown, Verified 05/29/23 08:57) Abdominal Pain mold Allergy (Verified 05/29/23 08:57) Headache [id number] Reductase Inhibitor Allergy (Verified 05/29/23 08:57) Weakness codeine [Codeine] Adverse Reaction (Mild, Verified 05/29/23 08:57) SEVERE ABDOMINAL PAIN Assessment & Plan Assessment & Plan (1) Difficulty swallowing: Code(s): R13.10 - Dysphagia, unspecified (2) Status post cervical spinal fusion: Code(s): Z98.1 - Arthrodesis status Plan Mrs Denton is about 3 months out from her C3-4 anterior cervical diskectomy and fusion. She is still having some trouble with swallowing and with projection of her voice but she seems to think it is related to some of the previous issues that she was having before surgery. She is due to follow up with an Ear Nose and Throat doctor for evaluation next week. She is going to start speech and swallow therapy as well to help with some of the dysphagia. The standpoint of our surgery she is fully recovered. She has no restrictions or limitations. She does have neck pain from time to time in the lower down part of her cervical spine and I am wondering if that may just be some early onset degeneration given all the spinal fusion that she has had in her neck. I told her not to worry about this too much but the call us down the road if something changes or intensifies. Jamal Judge MD, PhD [facility] Coding Level of Care Code Global (16492) Diagnoses Difficulty swallowing R13.10 Status post cervical spinal fusion Z98.1
== END 2023-07-31 14:46 | disposition home or self-care (01) ==
PROVIDERS: PCP Internal Medicine; Visit Provider Physician Assistant
DX: R13.10 Dysphagia, unspecified (principal); Z98.1 Arthrodesis status
CPT/HCPCS: 99213

== ENCOUNTER → 2023-07-31 13:43 | Outpatient (BNVA) | payer MEDICARE, OTHER, SELFPAY | PROVIDERS: PCP Internal Medicine; Visit Provider Physician Assistant | DX: R13.10 Dysphagia, unspecified (principal); Z98.1 Arthrodesis status | CPT/HCPCS: 99212 ==

== ENCOUNTER 2023-08-29 07:28 | Outpatient (REF) | payer MEDICARE, OTHER, SELFPAY ==
--- NOTE | ~2023-08-29 | CT_ITS ---
CT SINUS WITHOUT CONTRAST HISTORY: Sinonasal polyps, deviated septum TECHNIQUE: CT images of the paranasal sinuses were acquired without contrast. This CT examination was performed using dose optimization techniques as appropriate, variously including the following: *Automated exposure control *Adjustment of mA and/or kV according to patient size (this includes techniques or standardized protocols for targeted exams where dose is matched to indication/reason for exam; i.e. extremities or head) *Use of iterative reconstruction technique DLP: 80.12 mGy-cm COMPARISON: Correlation is made with CT head 12/14/2022 FINDINGS: NASAL CAVITY: There is shallow leftward deviation of the anterior superior nasal septum. The cribriform plate appears intact. Relatively symmetric lateral lamellae and fovea ethmoidalis. FRONTAL SINUS: Right: Trace mucosal thickening inferiorly. The outflow tract is patent. Left: Trace mucosal thickening inferiorly. The outflow tract is patent. ETHMOID AIR CELLS: Right: Essentially clear. Left: Essentially clear. SPHENOID SINUS: Right: Trace mucosal thickening near the ostium which may be occluded. Left: Trace mucosal thickening near the ostium which may be occluded. MAXILLARY SINUS: Right: Essentially clear. The outflow tract is patent. Left: Essentially clear. The outflow tract is patent. OTHER: Intracranial atherosclerotic calcification. Otherwise, the intracranial structures are unremarkable on these low mAs images. Sclerotic, opacified right mastoid air cells. Absent maxillary dentition. CT/CT sinus wo IV con IMPRESSION: Essentially clear paranasal sinuses. No air-fluid levels to indicate acute sinusitis. Sclerotic, opacified right mastoid air cells.
== END 2023-08-29 07:29 | disposition home or self-care (01) ==
LOC: HO.CT 07:28
PROVIDERS: PCP Internal Medicine; Visit Provider Otolaryngology
DX: J33.0 Polyp of nasal cavity (principal); J34.2 Deviated nasal septum
CPT/HCPCS: 70486

== ENCOUNTER 2023-10-22 13:02 | Outpatient (RCR) | payer MEDICARE, OTHER, SELFPAY ==
--- NOTE | 2023-10-29 12:05 | MHC.SP.ADU ---
Referring provider: VON Cyr Reason for Referral: Voice Evaluation Type of Treatment: 13283 Behavioral and Qualitative Analysis of Voice and Resonance Date of Plan of Treatment: 10/22/23 Onset of Symptoms/Illness: 04/26/23 Date Treatment Started: 10/22/23 Medical Diagnosis: Oropharyngeal Dysphagia Primary Speech Language Diagnosis: R49.8 Unspecified voice and resonance disorders Secondary Speech Language Diagnosis: R13.12 Oropharyngeal Phase Dysphagia History Ying Denton is a 63 year old woman who came to the clinic today due to concerns about her voice. Ying reports that she started having issues with her voice after having minimally invasive disc surgery (C3-4 discectomy and fusion) to her cervical spine last April. She reported that she has had several spinal surgeries, in both the cervical and lumbar spine over several years, stating that the surgery in in April was the fourth surgery on her neck. Following this surgery in April, she stated she had coughing spasms, that recurred for over a month, causing swelling and a sore throat. She reports that she saw Dr. Acharya, an ENT who did stroboscopy and told her everything was fine. She additionally has had issues with dysphagia for many years, but felt it became worse after the most recent surgery. She was seen for an Modified Barium Swallow Study with Speech in June of this year, with Judy Wolf, PATIENT SAFETY OFFICER. On this evaluation she evidenced mild oropharyngeal dysphagia secondary to slow movement of oral structures and reduced bolus control, delayed swallow trigger and reduced laryngeal elevation on swallow. Ying had a previous swallow study done at [facility] on 10/04/21 which similarly diagnosed mild oral pharyngeal dysphagia. On both studies had no evidence of aspiration on any consistency, and her more recent study evidenced some improvements in the pharyngeal phase of swallow (e.g. pharyngeal stripping wave was present and there was full epiglottic inversion). Ms. Larkin recommended she continue on a regular diet, using strategies of alternating liquids and solids, and swallowing twice on solids. Ying, who stated she was not given results from this evaluation, was presented with the full report at this evaluation for her records, with results reviewed at this meeting. Ying reports that currently her voice concerns are that she cannot raise her vocal volume nor her pitch, making her voice seem more flat and unexpressive. She says her grandchildren make fun of her as she isn't able to shout to them. She says she some times has recurrence of the the sore throat, but not as frequent or as bad as it was earlier this year. As this evaluation progressed, Ying reported that she is currently seeing a specialist at [facility], for a work up related to an inflammatory/neurological disorder. She reported that she was previously miss diagnosed with Multiple Sclerosis a few years ago, but has continued to have symptoms consistent with both inflammation and generalized muscle weakness. She is also scheduled for more surgery to her lumbar spine, for adjustment of a spinal nerve stimulator. 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 She lives in a private home in [place] with her boyfriend, and has adult Children and grandchildren who live in the area. Medical History: Other: Arthritis, weakness, lumbar spondylosis, spinal stenosis in cervical region, Restless Leg Syndrome, Anemia, FAtiquge, Cervical Spondylosis, Anxiety, Bipolar disorder (manic), Obtructive Speelp abnia, Insomnia, GERD, Cardiac microvascular disease, TIA, atrial fibrillation, cardiomyopathy, history of tonsillectomy, History of esophogogastroduodenoscopy (EGD), history of shoulder an knee surgery, history of carpal tunnel release. Medication List: Please see medical chart Recent Hospitalizations: Yes: 04/26/23 spinal surgery. Respiratory Needs: Room Air Patient Orientation: Alert & Oriented x 4 Social History: Employment Status: Retired Current Living Situation: Lives in a private residence. Past Speech Language Therapy: Previous [place]SS studies [place] 10/04/21[place] [facility] [place] Other Therapies Seen in Current Calendar Year: Unknown Swallowing History: Dysphagia Specific: Oralpharyngeal Dysphagia Comments: Please see comprehensive MBSS Evaluation, [facility] 06/30/23, Judy Wolf MA, CCC-PATIENT SAFETY OFFICER Reported Speech, Language, Cognition difficulties: Voice Comments: Ying presents with mild vocal issues related to adequate breath support to sustain louder vocal production, likely secondary to generalized weakness. Quality of Life: Excellent Patient Stated Goal of Speech-Language Therapy: Assess for voice issues. Assessment Informal Voice Assessment: Voice Loudness: Mildly Soft/Quiet Voice Nasal Resonance: Normal Voice Oral Resonance: Normal Voice Phonatory-based Quality: Normal Voice Pitch: Normal Voice Other Observations: Clinical Impression: Impaired Clinicial Observations: Ying was administered the Consensus Auditory Perceptual Evaluation of Voice (CAPE-V). On this evaluation, Ying demonstrated normal ratio of voiceless v. voiced phonation (S/Z Ration) of 1, and normal ability to sequence speech sounds when asked to produce diodochokinetic sequences (P/T/K). On sustained phonation of vowel sounds, she presented with generally normal vocal quality, although a very mild breathy quality was noted during reading of phonemically balanced sentences. On pitch variation, Ying was able to demonstrate a full octave range from high D# to low D# on an upward and downward simple scale exercise. It was noted that this pitch exercise caused some mild throat irritation. On volume variation, Ying evidenced limited range and difficulty producing louder sounds, with loudest sound elicited at 87 dBspl, however this loudness was notably difficult for her to sustain or repeat. Overall, Ying presented with mildly reduced vocal volume. Impressions and Recommendations Summary: Ying Denton presented today with mild vocal issues related to adequate breath support to sustain louder vocal production, likely secondary to generalized weakness, which Ying reports. Vocal quality, pitch and resonance were all within functional limits, and there was no indication of vocal pathology. Her difficulty with raising her voice or maintaining adequate volume is concerning to her, and the reason she came for a voice evaluation today. She is currently being seen by a specialist to determine if she has an underlying neurological or inflammatory disorder, which is something she strongly suspects. It is recommended that Ying return for a period of Voice Therapy, to address issues of breath support, sustained volume and voice production. As Ying has both pending surgeries and is undergoing specialized testing, she stated that she might be interested in starting Therapy after a delay of a month or more. Impact on Daily Function/Activity Limitations: Daily Activities: Mild Interpersonal Interactions: Mild Education: None Employment: None Community: None Prognosis for Improvement: Good Recommendation for Speech Therapy: Outpatient Speech Therapy Frequency/Duration: One forty five minute session weekly Date Range for Service Requested: 4-6 Weeks Time to Reassess: PRN Care Mgr Goals: Ying will use adequate breath support to sustain and vary volume in her conversational and functional speech as observed in 4/5 contexts. Short Term Goals: Goal # : 1.1 Ying will produce diaphragmatic breathing in the context of specific exercises with 80% accuracy. Goal Status: Goal# : 2.1 Ying will use vocal flow techniques to produce increased volume and resonance for words, phrases and sentences with 80% accuracy2.1 Goal Status: Goal # : 3.1 Ying will raise and sustain volume to a range of 85-90 dBSPL on sustained phonation tasks with 80% accuracy. 3.2 Ying will sustain volume above 85 dB on structured short reading tasks with 80% accuracy 3.3 Ying will sustain volume above 85 dB in a brief conversational exchange with 80% accuracy. Goal Status: Patient Education: Completed: Yes Patient/Caregiver Education: Described Results of Evaluation Patient expressed understanding of evaluation Patient agrees with goals and treatment plan Comments/Barriers to Learning: Weed Eradicator Clinican/Clinical Fellow: No Supervisory Statement: N/A Speech Language Pathologist: Kierra Elizabeth M.A., CCC-PATIENT SAFETY OFFICER
== END 2024-01-09 13:35 | disposition still patient (30) ==
LOC: HO.SH 13:02
PROVIDERS: PCP Internal Medicine; Visit Provider Physician Assistant
DX: R13.10 Dysphagia, unspecified (principal)
CPT/HCPCS: 92524

== ENCOUNTER 2023-11-27 10:17 | Outpatient (REF) | payer MEDICARE, OTHER, SELFPAY ==
[2023-11-27 13:08] LABS: MANUAL DIFF FLAG NO
[2023-11-27 13:28] LABS: Basophils Percent Auto 0.5 % (0-2); Eosinophils Absolute Auto 0.1 X10*3/uL (0.0-0.4); Eosinophils Percent Auto 2.5 % (0-4); Hematocrit 39.7 % (37.0-47.0); Hemoglobin 13.1 g/dl (12.0-16.0); Imm Gran Abs Auto 0.01 X10*3/uL (0.00-0.03); Imm Gran Pct Auto 0.2 % (0.0-0.4); Lymphocytes Absolute Auto 1.4 X10*3/uL (1.2-4.9); Lymphocytes Percent Auto 34.8 % (20-40); Mean Corpuscular Hemoglobin 31.6 pg (27.0-33.0); Mean Corpuscular Volume 95.9 fL (80.0-98.0); Mean Platelet Volume 10.5 fL (9.4-12.3); Monocytes Absolute Auto 0.4 X10*3/uL (0.1-1.2); Monocytes Percent Auto 9.5 % (2-11); Neutrophils Absolute Auto 2.1 x10*3/uL (2.0-8.3); Neutrophils Percent Auto 52.5 % (45-73); Platelet Count 266 X10*3/uL (160-400); Red Blood Count 4.14 X10*6/uL (4.20-5.50); Red Cell Distribution Width 13.3 % (11.0-16.0)
[2023-11-27 13:32] LABS: Alanine Aminotransferase 12 U/L (0-31); Albumin Level 4.3 g/dL (3.5-5.0); Alkaline Phosphatase 66 U/L (39-117); Anion Gap 13 (12-20); Aspartate Amino Transferase 23 U/L (5-31); Bilirubin Total 0.8 mg/dL (0.0-1.0); Blood Urea Nitrogen 13 mg/dL (9-16); Calcium 9.2 mg/dL (8.4-10.2); Carbon Dioxide 28 mmol/L (22-29); Chloride 106 mmol/L (96-108); Cholesterol 212 mg/dL (<200); Estimated Glomerular Filt Rate > 60; Glucose Fasting 85 mg/dL (60-99); HDL Cholesterol 63 mg/dL (>40); LDL Cholesterol Calculated 121 mg/dL (<100); Potassium 4.8 mmol/L (3.3-5.1); Sodium 142 mmol/L (135-145); Total Protein 7.1 g/dL (6.5-8.0); Triglycerides 141 mg/dL (<150)
[2023-11-27 13:54] LABS: Free T4 (Free Thyroxine) 0.94 ng/dL (0.71-1.85); Thyroid Stimulating Hormone 0.19 uIU/mL (0.32-4.0); Vitamin D 25-OH Total 55.9 ng/mL (>30)
[2023-11-29 03:14] LABS: Triiodothyronine T3 Free 3.5 pg/mL (2.3-4.2)
== END 2023-11-27 10:18 | disposition home or self-care (01) ==
LOC: HO.HMGCLDS 10:17
PROVIDERS: PCP Internal Medicine; Visit Provider Internal Medicine
DX: I48.0 Paroxysmal atrial fibrillation (principal); I20.1 Angina pectoris with documented spasm; R10.13 Epigastric pain; E01.0 Iodine-deficiency related diffuse (endemic) goiter; M62.838 Other muscle spasm; N39.46 Mixed incontinence; M54.12 Radiculopathy, cervical region
CPT/HCPCS: 36415; 80053; 80061; 82306; 84439; 84443; 84481; 85025

== ENCOUNTER 2023-12-18 10:11 | Outpatient (REF) | payer MEDICARE, OTHER, SELFPAY ==
[2023-12-18 13:07] LABS: MANUAL DIFF FLAG NO
[2023-12-18 13:11] LABS: Basophils Percent Auto 0.5 % (0-2); Eosinophils Absolute Auto 0.1 X10*3/uL (0.0-0.4); Eosinophils Percent Auto 1.4 % (0-4); Hematocrit 38.5 % (37.0-47.0); Imm Gran Abs Auto 0.01 X10*3/uL (0.00-0.03); Imm Gran Pct Auto 0.2 % (0.0-0.4); Lymphocytes Absolute Auto 1.4 X10*3/uL (1.2-4.9); Lymphocytes Percent Auto 32.9 % (20-40); Mean Corpuscular HGB Conc 33.8 g/dl (31.0-35.0); Mean Corpuscular Hemoglobin 31.6 pg (27.0-33.0); Mean Corpuscular Volume 93.7 fL (80.0-98.0); Mean Platelet Volume 9.9 fL (9.4-12.3); Monocytes Absolute Auto 0.4 X10*3/uL (0.1-1.2); Monocytes Percent Auto 8.8 % (2-11); Neutrophils Absolute Auto 2.4 x10*3/uL (2.0-8.3); Neutrophils Percent Auto 56.2 % (45-73); Platelet Count 265 X10*3/uL (160-400); Red Blood Count 4.11 X10*6/uL (4.20-5.50); Red Cell Distribution Width 13.5 % (11.0-16.0); White Blood Count 4.2 X10*3/uL (4.8-10.8)
[2023-12-18 13:48] LABS: Alanine Aminotransferase 12 U/L (0-31); Albumin Level 4.2 g/dL (3.5-5.0); Alkaline Phosphatase 62 U/L (39-117); Anion Gap 9 (12-20); Aspartate Amino Transferase 22 U/L (5-31); Bilirubin Direct 0.2 mg/dL (0.0-0.5); Bilirubin Total 0.6 mg/dL (0.0-1.0); Blood Urea Nitrogen 10 mg/dL (9-16); C Reactive Protein < 0.10 mg/dL (< or = 0.50); Calcium 8.9 mg/dL (8.4-10.2); Carbon Dioxide 27 mmol/L (22-29); Chloride 107 mmol/L (96-108); Estimated Glomerular Filt Rate > 60; Glucose Random 85 mg/dL (60-115); Potassium 4.3 mmol/L (3.3-5.1); Sodium 139 mmol/L (135-145)
[2023-12-18 13:50] LABS: Thyroid Stimulating Hormone 0.45 uIU/mL (0.32-4.0)
[2023-12-18 14:01] LABS: Erythrocyte Sedimentation Rate 6 MM/HR (0-20)
[2023-12-18 14:20] LABS: T4 Thyroxine 6.7 ug/dL (4.5-12.0)
== END 2023-12-18 10:12 | disposition home or self-care (01) ==
LOC: HO.HMGCLDS 10:11
PROVIDERS: PCP Internal Medicine; Visit Provider Internal Medicine
DX: R63.4 Abnormal weight loss (principal)
CPT/HCPCS: 36415; 80048; 80076; 84436; 84443; 85025; 85652; 86140

== ENCOUNTER 2023-12-24 12:29 | Outpatient (AMB) | payer MEDICARE, OTHER, SELFPAY ==
--- NOTE | 2023-12-24 12:37 | MHC.OFFVIS ---
Vital Signs 12/24/23 12:43 Height 5 ft 3 in Weight 123 lb BMI 21.8 BP 130/70 Blood Pressure Location Rt brachial Position Sitting Respiration 16 Pulse 97 Pulse Source Pulse Oximeter Pulse Oximetry (%) 97 Oxygen Delivery Method Room Air Intake Visit Reasons: Follow Up - Confirmed Intake Note: Pt presents for follow up for RLS and spondylosis. Column Precaster Required: No Allergies penicillin G [Penicillin G] Allergy (Mild, Verified 12/24/23 12:40) RASH penicillin V Allergy (Unknown, Verified 12/24/23 12:40) Abdominal Pain mold Allergy (Verified 12/24/23 12:40) Headache [id number] Reductase Inhibitor Allergy (Verified 12/24/23 12:40) Weakness codeine [Codeine] Adverse Reaction (Mild, Verified 12/24/23 12:40) SEVERE ABDOMINAL PAIN Medication List - Last Reconciled 12/24/23 by India Escobar MD acetaminophen 1,000 mg (2 x 500 mg) PO Q8H PRN alprazolam 0.25 mg PO BID PRN apixaban (Eliquis) 5 mg PO BID@0900,1900 baclofen 20 mg PO TID biotin 10,000 mcg PO DAILY bupropion HCl 75 mg PO QAM enoxaparin mg subcut ergocalciferol (vitamin D2) 1,250 mcg PO Q2W estradiol 1 patch transdermal WE@0900 gabapentin 1,200 mg PO DAILY@1900 lamotrigine ER 400 mg PO DAILY lorazepam 2 mg PO DAILY@2300 magnesium hydroxide (Milk of Magnesia) 15 mL PO BEDTIME PRN methylphenidate HCl 10 mg PO TID PRN omeprazole 20 mg PO DAILY@0630 [rollator As directed] tizanidine 2 mg PO TID PRN valacyclovir 500 mg PO BID HPI Comments Details: 63y/o right handed female comes for evaluation of witnessed apneas.she was diagnsoe dwith sleep apnea many years ago but did not use CPAP. she is following up at [facility] for her other issues. History from last visit-.I reviewed her notes from at [facility] - he suggested another opinion with living specialist , MS was ruled out , suggested functional neurological syndrome. she is scheduled for C spine surgery Apr [address] Judge. I also reviewed her ER notes from [facility] and [facility]. she wants to be referred to [facility] for opinion. But she wants to discuss other neurological symptoms that she is concerned about Her main concerns or symptoms are 1. generalized weakness, balance issues- episodic , no neck pain .SHe has had multiple episode sin past 2 years . No numbness or tingling 2. she has bladder and bowel incontinence on and off . she has sees a urologist and GI . 3. Speech- sometimes she changes words and word finding difficulty 4. Muscle spasms - in her lower trunk and legs and ue - episodic. it can be at rest and walking.she is on gabapentin 1200 mg qhs and still has residual twitching . Previous history-Her main question is if she has MS ( ruled out by Dr. Brar) She was also seen by Dr. Jduge for cervical stenosis but due to her fusion surgeries. As per Dr. Judge.Her symptom could be related to cervical myelopathy associated with the radiological abnormality seen on the MRI of the cervical spine.? However, a surgery would involve fusion of the C3-4, C6-7 C7-T1 levels and combining that with the already fused C4-5 and C5-6 levels would make her at risk for failure at the cervicothoracic region.? She started having symptoms of restlessness in her right leg about 40 years ago.It progressed to involve her both lower extremities. she was seeing Dr. Parisi and was treated with gabapentin .In the past 1 year she feels the symptoms have progressed to involve her trunk and UE. she describes the restless as lightning electric shock sensation with involuntary leg jerking, more at rest and night and relief with moving.It usually starts from 7pm when she sits down to relax. she used to have it only when she went to bed. she wakes up 1-2 times a night. she takes her gabapentin at 8 pm 1200 mg - still wakes up in the middle of the night. she reports excessive daytime fatigue [facility] Medical History (Updated 12/24/23 @ 13:01 by India Escobar MD) Hypersomnia Witnessed apneic spells Arthritis Difficulty swallowing Weakness On anticoagulant therapy Lumbar spondylosis Spinal stenosis in cervical region Restless legs syndrome (RLS) Anemia Fatigue Cervical spondylosis Anxiety Bipolar disease, manic Occasional tremors Obstructive sleep apnea Insomnia GERD (gastroesophageal reflux disease) Cardiac microvascular disease TIA (transient ischemic attack) Atrial fibrillation Cardiomyopathy Surgical History H/O cervical discectomy History of partial hysterectomy History of tonsillectomy Hx of hand surgery History of radiofrequency ablation procedure for cardiac arrhythmia History of esophagogastroduodenoscopy (EGD) H/O colonoscopy H/O radiofrequency ablation (RFA) of nerve of lumbar spine Hx of cervical spine surgery Hx of shoulder surgery H/O: knee surgery Hx of cholecystectomy History of carpal tunnel release Hx of appendectomy Family History Father Dementia Cancer Mother Cancer COPD (chronic obstructive pulmonary disease) Multiple sclerosis Daughter Myasthenia Social History Household Members: Significant Other Housing: House Are you a primary critical care unit nurse to a significant other at home: No Do you presently have visiting nurse 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, 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) Alcohol intake: never Comment: counts correct Patient Tobacco Use Status: Never used Tobacco service: No Physical Exam Vital Signs: Last Vital Signs Pulse 97 12/24/23 12:43 Resp 16 12/24/23 12:43 BP 130/70 12/24/23 12:43 Pulse Ox 97 12/24/23 12:43 Oxygen Delivery Method Room Air 12/24/23 12:43 BMI result Body Mass Index 21.8 Const General: cooperative, healthy appearing, comfortable and no acute distress Nutritional Appearance: average body habitus Orientation/consciousness: patient oriented x3 Limitations: no limitations Eyes Pupils: Equal, round and reactive pupils present Neuro General: patient oriented x3, tone normal, moves all extremities, Normal light touch and pain sensation and no focal motor deficits Cranial nerves: Yes Facial sensation intact/muscles of mastication intact, Yes Equal, round and reactive pupils present, Yes Bilaterally intact EOM present, Yes Nystagmus not present, Yes Normal facial strength present, Yes Midline tongue present, Yes Symmetric palate elevation present and Yes Ability to bilaterally elevate shoulders present Cognition (Neuro): normal cognition Gait exam (Neuro): Normal gait present Motor exam (neuro): 5/5 motor strength present throughout and Normal motor muscle tone present throughout Deep tendon reflexes (DTR's): Left triceps reflex intensity grade: 1+, Rt Biceps (C5, C6): 1+, Left biceps reflex intensity grade: 1+, Right brachioradialis reflex intensity grade: 1+, Left brachioradialis reflex intensity grade: 1+, Right patellar reflex intensity grade: 0 and Left patellar reflex intensity grade: 0 Coordination: [id number] test normal Assessment & Plan Assessment & Plan (1) Witnessed apneic spells: Code(s): R06.81 - Apnea, not elsewhere classified Category: Medical (2) Hypersomnia: Code(s): G47.10 - Hypersomnia, unspecified Category: Medical Plan Home Sleep Study to evaluate for sleep apnea. F/U with [facility] Orders: Orders RT home sleep study Today G47.10 - Hypersomnia, unspecified, R06.81 - Apnea, not elsewhere classified Coding Level of Care Code Est Pt Level 3 (24015) Diagnoses Witnessed apneic spells R06.81 Hypersomnia G47.10
[2023-12-24 12:43] VITALS: BP 130/70; PULSE 97; RESP 16; O2SAT 97; BMI 21.8
== END 2023-12-24 13:08 | disposition home or self-care (01) ==
PROVIDERS: PCP Internal Medicine; Visit Provider Psychiatry & Neurology Neurology
DX: R06.81 Apnea, not elsewhere classified (principal); G47.10 Hypersomnia, unspecified
CPT/HCPCS: 99213

== ENCOUNTER → 2023-12-24 12:29 | Outpatient (BNVA) | payer MEDICARE, OTHER, SELFPAY | PROVIDERS: PCP Internal Medicine; Visit Provider Psychiatry & Neurology Neurology | DX: G47.30 Sleep apnea, unspecified (principal); G47.10 Hypersomnia, unspecified | CPT/HCPCS: 99212 ==

== ENCOUNTER → 2024-02-05 08:48 | Outpatient (REF) | payer MEDICARE, OTHER, SELFPAY | LOC: HO.SL 08:48 | PROVIDERS: PCP Internal Medicine; Visit Provider Psychiatry & Neurology Neurology | DX: G47.10 Hypersomnia, unspecified (principal); R06.81 Apnea, not elsewhere classified | CPT/HCPCS: 95806 ==

== ENCOUNTER → 2024-02-05 09:01 | Outpatient (BNV) | payer MEDICARE, OTHER, SELFPAY | PROVIDERS: PCP Internal Medicine; Visit Provider Psychiatry & Neurology Neurology | DX: G47.10 Hypersomnia, unspecified (principal); R06.83 Snoring | CPT/HCPCS: 95806 ==

== ENCOUNTER 2024-03-08 10:19 | Emergency (ER) | payer OTHER, MEDICARE, SELFPAY ==
--- NOTE | ~2024-03-08 | CT_ITS ---
EXAMINATION: CT HEAD WITHOUT CONTRAST (STROKE PROTOCOL) CLINICAL INFORMATION: Stroke protocol. COMPARISON: CT head dated 12/14/2022. TECHNIQUE: Contiguous axial imaging was performed from the skull base to vertex without intravenous administration of contrast. This CT examination was performed using dose optimization techniques as appropriate, variously including the following: *Automated exposure control *Adjustment of mA and/or kV according to patient size (this includes techniques or standardized protocols for targeted exams where dose is matched to indication/reason for exam; i.e. extremities or head) *Use of iterative reconstruction technique DLP: 628 mGy-cm FINDINGS: No acute intracranial hemorrhage. No mass effect or midline shift. No parenchymal lesion. The marinelli-white differentiation is maintained. No extra-axial fluid collection. The ventricles and sulci are unremarkable. The basal cisterns are patent. The calvarium is intact. The visualized paranasal sinuses and mastoid air cells are clear. CT/CT head for stroke IMPRESSION: No acute intracranial hemorrhage or mass effect. This critical result was discussed with Char Rothman at 10:41 AM on 03/08/2024. It was ascertained that the content and urgency of the report was understood at the time of direct communication. Electronically signed by: Choco Bradford MD 03/08/2024 10:42 AM [facility]
--- NOTE | ~2024-03-08 | CT_ITS ---
EXAMINATION: CTA NECK WITH CONTRAST (STROKE) CTA BRAIN WITH CONTRAST (STROKE) CLINICAL INFORMATION: Suspect acute stroke. Assess for major vessel occlusion. Please call report. COMPARISON: December 14, 2022. TECHNIQUE: CTA of the head and neck was performed in the axial plane from the mediastinum to the skull vertex using 70 mL Omnipaque 350 intravenous contrast without reported immediate complications. Additional reformatted multiplanar images including maximum intensity projection MIP images are generated on the CT workstation. This CT examination was performed using dose optimization techniques as appropriate, variously including the following: *Automated exposure control *Adjustment of mA and/or kV according to patient size (this includes techniques or standardized protocols for targeted exams where dose is matched to indication/reason for exam; i.e. extremities or head) *Use of iterative reconstruction technique DLP: 1360 mGy-cm FINDINGS: The degree of stenosis determined by criteria similar to NASCET. Brain: No acute intracranial hemorrhage, mass effect, midline shift, hydrocephalus or herniation. Morejon-white matter differentiation is normal. Posterior cranial fossa contents demonstrated no acute intracranial hemorrhage or mass effect. No abnormal enhancement within the intra-axial or the extra-axial compartment of the cranium. Bony calvarium is intact. Skull base is intact. For pneumatization right mastoid with probably fluid levels in the right mastoid antrum. Chest CTA: No focal stenosis or intimal flap, thoracic aorta. Calcified plaques in the aortic arch and the origin of the left CCA. Neck CTA: Right CCA: Normal patency. No focal stenosis. No intimal flap. Right ICA: Normal patency. No focal stenosis. No intimal flap. Left CCA: Calcified plaques in the origin. No focal stenosis or intimal flap. Normal patency. Left ICA: Calcified plaques. Normal patency. No focal stenosis. No intimal flap. V1/V2 segments demonstrated no focal stenosis or intimal flap. Left vertebral artery is dominant. The vertebral arteries are orientating directly from the aortic arch. Ancillary findings: Heterogeneous nodular enlarged thyroid gland with multiple punctate calcifications and multifocal low-density nodules, the largest in the left thyroid lobe resulting in mild extrinsic compression upon the trachea. Multilevel cervical spondylosis. Status post ACDF C3 C6. Brain CTA: Anterior cerebral circulation: ICAs: Calcified plaques in the cavernous and supraclinoid segments both ICAs. No focal stenosis. No abrupt cut off. MCA's: No focal stenosis or abrupt cut off. Bifurcation/trifurcation demonstrated normal patency without vascular abnormality. ACAs: Hypoplastic right A1 segment. No focal stenosis or abrupt cut off. Normal patency. Anterior communicant artery is patent. Posterior communicating arteries are robust and patent, bilaterally. Posterior cerebral circulation: V3/V4 segments demonstrate normal patency without focal stenosis or intimal flap. Left vertebral artery is dominant. Posterior inferior cerebellar arteries are patent. Basilar artery is patent without focal stenosis or intimal flap. Superior cerebellar arteries are patent. 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 Normal patency without abrupt cut off. CT/CT angio head neck stroke IMPRESSION: No main cerebral artery occlusion or embolus. No high degree stenosis or dissection in the vessels of the neck. origin right BIOLOGIST. Concerning thyroid disease/multinodular goiter. This critical test result is communicated to: Emergency physician Dr. Char oRthman on March 08, 2024 at 11:10 AM. Electronically signed by: Roberto Pisano MD 03/08/2024 11:20 AM EST
--- NOTE | 2024-03-08 10:25 | ED_ITS ---
HPI - General Adult General Chief complaint: Stroke Stated complaint: stroke Time Seen by Provider: 03/08/24 10:25 Source: patient, EMS and RN notes reviewed Mode of arrival: EMS Limitations: no limitations History of Present Illness ED Provider: Stephan HPI narrative: Patient is a 64-year-old female with history of multiple sclerosis, chronic headaches, afib on Eliquis, TIA, cardiomyopathy, BHANU, Bipolar disorder, occasional tremors, RLS, anemia presenting to the emergency department with complaint of numb sensation to bilateral eyes/eyelids, bilateral blurred vision, as well as frontal headache radiating to the back. Symptoms began around 20 minutes after she woke up, then worsened prior to calling 911. Last known well time was when she went to bed at 23:00 last night. She denies recent falls or other trauma. Denies weakness, numbness, tingling to extremities. MD complaint: blurred vision, facial numbness Onset (ago): hour(s) Location: head, face and eyes Treatments prior to arrival: none Related Data Home Medications ?Medication ?Instructions ?Recorded ?Confirmed apixaban 5 mg tablet (Eliquis) 5 mg PO BID@0900,1900 08/14/22 12/24/23 biotin 5,000 mcg disintegrating 10,000 mcg PO DAILY 08/14/22 12/24/23 tablet estradiol 0.075 mg/24 hr weekly 1 patch transdermal WE@0900 08/14/22 12/24/23 transdermal patch gabapentin 600 mg tablet 1,200 mg PO DAILY@1900 08/14/22 12/24/23 methylphenidate HCl 20 mg tablet 10 mg PO TID PRN FATIGUE/CONFUSION 08/14/22 12/24/23 omeprazole 20 mg capsule,delayed 20 mg PO DAILY@0630 08/14/22 12/24/23 release lamotrigine 200 mg tablet,extended 400 mg PO DAILY 11/20/22 12/24/23 release 24 hr ergocalciferol (vitamin D2) 1,250 1,250 mcg PO Q2W 12/15/22 12/24/23 mcg (50,000 unit) capsule lorazepam 2 mg tablet 2 mg PO DAILY@2300 12/15/22 12/24/23 alprazolam 0.5 mg tablet 0.25 mg PO BID PRN Anxiety 02/27/23 12/24/23 bupropion HCl 75 mg tablet 75 mg PO QAM 04/08/23 12/24/23 enoxaparin 60 mg/0.6 mL mg subcut 04/08/23 12/24/23 subcutaneous syringe valacyclovir 500 mg tablet 500 mg PO BID 05/29/23 12/24/23 tizanidine 2 mg capsule 2 mg PO TID PRN 12/24/23 12/24/23 Previous Rx's ?Medication ?Instructions ?Recorded rollator #1 ea 12/23/22 acetaminophen 500 mg tablet 1,000 mg (2 x 500 mg) PO Q8H PRN 04/10/23 mild-moderate pain #42 tabs magnesium hydroxide 400 mg/5 mL 15 ml PO BEDTIME PRN constipation 07/17/23 oral suspension (Milk of Magnesia) #355 mL baclofen 20 mg tablet 20 mg PO TID muscle spasm #90 tabs 11/26/23 Allergies Allergy/AdvReac Type Severity Reaction Status Date / Time penicillin G [Penicillin G] Allergy Mild RASH Verified 03/08/24 10:51 penicillin V Allergy Unknown Abdominal Verified 03/08/24 10:51 Pain mold Allergy Headache Verified 03/08/24 10:51 [id number] Reductase Allergy Weakness Verified 03/08/24 10:51 Inhibitor codeine [Codeine] AdvReac Mild SEVERE Verified 03/08/24 10:51 ABDOMINAL PAIN Review of Systems 2 Review of Systems: As per HPI. Yes all other systems are reviewed and are negative Constitutional: Constitutional: Reports as per HPI Neurologic: Denies Abnormal speech present [facility] Past Medical History Medical History (Updated 03/08/24 @ 14:25 by Char Rothman NP) Hypersomnia Witnessed apneic spells Arthritis Difficulty swallowing Weakness On anticoagulant therapy Lumbar spondylosis Spinal stenosis in cervical region Restless legs syndrome (RLS) Anemia Fatigue Cervical spondylosis Anxiety Bipolar disease, manic Occasional tremors Obstructive sleep apnea Insomnia GERD (gastroesophageal reflux disease) Cardiac microvascular disease TIA (transient ischemic attack) Atrial fibrillation Cardiomyopathy Surgical History H/O cervical discectomy History of partial hysterectomy History of tonsillectomy Hx of hand surgery History of radiofrequency ablation procedure for cardiac arrhythmia History of esophagogastroduodenoscopy (EGD) H/O colonoscopy H/O radiofrequency ablation (RFA) of nerve of lumbar spine Hx of cervical spine surgery Hx of shoulder surgery H/O: knee surgery Hx of cholecystectomy History of carpal tunnel release Hx of appendectomy Family History Family History Father Dementia Cancer Mother Cancer COPD (chronic obstructive pulmonary disease) Multiple sclerosis Daughter Myasthenia Social History Social History Household Members: Significant Other Housing: House Are you a primary gericare aide to a significant other at home: No Do you presently have visiting nurse 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, [employer]) Alcohol intake: never Comment: counts correct Patient Tobacco Use Status: Never used Tobacco Advance Directives: No Advance Directives Information Provided: Yes service: No Physical Exam ED Vital Signs: Vital Signs - 24 hr 03/08/24 10:49 Temperature 97.6 F Pulse Rate 80 Respiratory Rate 18 Blood Pressure 159/81 H Pulse Oximetry 100 Oxygen Delivery Method Room Air BMI result Body Mass Index 20.8 Const General: cooperative, healthy appearing and no acute distress Orientation/consciousness: oriented to person, oriented to place, oriented to time and patient oriented x3 Limitations: no limitations HENMT Head: Yes normocephalic and Yes atraumatic Ears: external ears normal General nose exam: Normal external nose present Face and sinus: Yes face symmetric Mouth: oropharynx normal and moist mucous membranes Throat: Yes uvula midline Eyes Pupils: Equal, round and reactive pupils present Neck Neck: Yes normal visual inspection, Yes no meningeal signs and Yes supple Resp Effort & Inspection: normal respiratory effort and able to speak in complete sentences Auscultation: clear to auscultation bilaterally Cardio Rate: regular rate Rhythm: regular rhythm Heart sounds: S1 normal heart sound present and S2 normal heart sound present GI Palpation (GI): Soft to palpation and nontender Auscultation: normoactive bowel sounds General: Yes no CVA tenderness Back/Spine/Pelvis Back: no CVA tenderness Skin General skin exam: elasticity normal and turgor normal Neuro General: oriented to person, oriented to place, oriented to time, patient oriented x3, tone normal, moves all extremities, Normal light touch and pain sensation, no meningeal signs, no focal motor deficits, CN's II-XI intact bilaterally and deep tendon reflexes 2+ bilaterally Cranial nerves: Yes Equal, round and reactive pupils present Cognition (Neuro): normal cognition Speech: No Abnormal speech present Motor exam (neuro): 5/5 motor strength present throughout, Pronator motor function not present, no tremor noted, Normal motor muscle tone present throughout and Motor abnormalities not present Sensory Exam: Normal double simultaneous stimulation for sensation Coordination: [id number] test normal and [id number] test normal Extrem General: Yes full ROM, Yes no pedal edema and Yes no calf tenderness Psych Mental Status: mental status grossly normal Affect: normal affect Thought process: Normal thought process present NIH Stroke Scale Internal: Initial- Upon Arrival Time: 10:32 Level of Consciousness: Alert Level of Consciousness Questions: Answers both questions correctly Level of Consciousness Commands: Performs both tasks correctly Best Gaze: Normal Visual: No visual loss Facial Palsy: Normal Motor Arm (Right): No drift Motor Arm (Left): No drift Motor Leg (Right): No drift Motor Leg (Left): No drift Limb Ataxia: Absent Sensory: Normal Best Language: No aphasia Dysarthia: Normal Extinction and Inattention: No abnormality Score: 0 Medications Administered Discontinued Medications Generic Name Dose Route Start Last Admin Trade Name Freq PRN Reason Stop Dose Admin Baclofen 20 mg 03/08/24 12:23 03/08/24 12:34 Baclofen 20 Mg Tablet PO 03/08/24 12:24 20 mg ONCE ONE Administration Iohexol 70 ml 03/08/24 10:46 03/08/24 10:47 Iohexol 350 Mg/Ml 100 Ml Infus..Btl IV 03/08/24 10:47 70 ml ONCE ONE Administration Medical Decision Making Medical Decision Making [facility] Narrative: Patient is a 64-year-old female with history of multiple sclerosis, chronic headaches, afib on Eliquis, TIA, cardiomyopathy, BHANU, Bipolar disorder, occasional tremors, RLS, anemia presenting to the emergency department with complaint of numb sensation to bilateral eyes/eyelids, bilateral blurred vision, as well as frontal headache radiating to the back. On exam patient is awake, A+Ox3, VS WNL, afebrile, normal neurological exam without focal deficits, physical exam findings as above. Given reported symptoms and physical exam findings, initial differential includes CVA, ICH, TIA, electrolye abnormality. Labs notable for chronic leukopenia, no anemia,no significant electrolyte abnormalities, normal TSH. CT/CTA head notable for no evidence of acute infart, mass effect or hemorrhage. Multinodular goiter also noted, patient states she is aware of this, sees an web master. My interpretation is in agreement with the radiologist's interpretation. 12:25 IOPs: OD 14, OS 12, patient now stating that all symptoms have resolved. Also reports that she is currently being evaluated at [facility] for stiff person syndrome, they feel she may not have MS. She has ongoing testing and appointments scheduled. Case discussed with Dr. Conteh from neurology, he notes TNK is not indicated, does not see indication for admission, and recommends outpatient neurology follow up which patient has. Visual acuity 20/70 bilaterally, however, patient does not have her glasses with her. Feel patient is stable for discharge at this time. Advised patient to f/u with [facility] neuro clinic. Return precautions discussed at bedside. Patient verbalized understanding of and agreement with plan. Differential Diagnosis Differential Diagnoses: The differential diagnosis associated with the presentation includes As per [facility] Admission/Observation Consideration of admission/observation: Escalation of care including admission/observation considered Patient would have been admitted to the hospital had their work up had any findings where hospital admission was appropriate and their clinical presentation warranted hospital admission. Consult Healthcare Provider Management of the patient was discussed with: Extractive Metallurgist (Dr. Conteh) Lab Data [facility] Lab Attestation statement: I reviewed the patient's lab results. As per [facility] 03/08/24 11:38 03/08/24 11:38 Labs: Lab Results 03/08/24 03/08/24 03/08/24 Range/Units 10:25 10:27 11:38 WBC 4.0 L (4.8-10.8) X10*3/uL RBC 4.33 (4.20-5.50) X10*6/uL Hgb 13.7 (12.0-16.0) g/dl Hct 40.4 (37.0-47.0) % MCV 93.3 (80.0-98.0) fL MCH 31.6 (27.0-33.0) pg MCHC 33.9 (31.0-35.0) g/dl RDW 13.6 (11.0-16.0) % Plt Count 298 (160-400) X10*3/uL MPV 9.6 (9.4-12.3) fL Immature Gran % (Auto) 0.2 (0.0-0.4) % Neut % (Auto) 49.9 (45-73) % Lymph % (Auto) 40.0 (20-40) % [place] % (Auto) 6.7 (2-11) % Eos % (Auto) 2.7 (0-4) % Baso % (Auto) 0.5 (0-2) % Lymph # (Auto) 1.6 (1.2-4.9) X10*3/uL [place] # (Auto) 0.3 (0.1-1.2) X10*3/uL Eos # (Auto) 0.1 (0.0-0.4) X10*3/uL Baso # (Auto) 0.0 (0.0-0.2) X10*3/uL Abs Immat Gran (auto) 0.01 (0.00-0.03) X10*3/uL Absolute Neuts (auto) 2.0 (2.0-8.3) x10*3/uL Absolute Nucleated RBC 0.000 (0.0-0.012) X10*3/uL Nucleated RBC % (auto) 0.0 (0.0-0.2) /100WBC PT 13.5 H (10.9-12.4) SEC Whole Blood PT 13.8 H (11.1-13.5) sec INR 1.2 H (0.9-1.1) Whole Blood INR 1.1 (0.9-1.1) APTT 41.6 H (26.0-36.8) SEC Sodium 142 (135-145) mmol/L Potassium 4.1 (3.3-5.1) mmol/L Chloride 110 H (96-108) mmol/L Carbon Dioxide 22 (22-29) mmol/L Anion Gap 14 (12-20) BUN 8 L (9-16) mg/dL Creatinine 0.69 (0.5-1.4) mg/dL Estim Creat Clear Calc 75.9 Estimated GFR > 60 POC Glucose 79 (60-115) mg/dL Random Glucose 71 (60-115) mg/dL Calcium 9.5 D (8.4-10.2) mg/dL Troponin I High Sens < 2.7 (<3.5-17.0) ng/L Triglycerides 115 (<150) mg/dL Cholesterol 247 H (<200) mg/dL LDL Cholesterol, Calc 147 H (<100) mg/dL HDL Cholesterol 77 (>40) mg/dL TSH 0.69 (0.32-4.0) uIU/mL Urine Color Urine Appearance Urine pH (5.0-9.0) Ur Specific [place] (1.005-1.025) Urine Protein (Neg-Trace) mg/dL Urine Glucose (UA) (Negative) mg/dL Urine Ketones (Negative) mg/dL Urine Blood (Negative) Urine Nitrite (Negative) Ur Leukocyte Esterase (Negative) Urine Opiates Screen (Not Detect) Ur Buprenorphine Scrn (Not Detect) ng/mL Ur Oxycodone Screen (Not Detect) ng/mL Urine Methadone Screen (Not Detect) ng/mL Urine Fentanyl Screen (Not Detect) Ur Barbiturates Screen (Not Detect) Ur Phencyclidine Scrn (Not Detect) Ur Amphetamines Screen (Not Detect) U Benzodiazepines Scrn (Not Detect) Urine Cocaine Screen (Not Detect) U Marijuana (THC) Screen (Not Detect) 03/08/24 Range/Units 12:35 WBC (4.8-10.8) X10*3/uL RBC (4.20-5.50) X10*6/uL Hgb (12.0-16.0) g/dl Hct (37.0-47.0) % MCV (80.0-98.0) fL MCH (27.0-33.0) pg MCHC (31.0-35.0) g/dl RDW (11.0-16.0) % Plt Count (160-400) X10*3/uL MPV (9.4-12.3) fL Immature Gran % (Auto) (0.0-0.4) % Neut % (Auto) (45-73) % Lymph % (Auto) (20-40) % [place] % (Auto) (2-11) % Eos % (Auto) (0-4) % Baso % (Auto) (0-2) % Lymph # (Auto) (1.2-4.9) X10*3/uL [place] # (Auto) (0.1-1.2) X10*3/uL Eos # (Auto) (0.0-0.4) X10*3/uL Baso # (Auto) (0.0-0.2) X10*3/uL Abs Immat Gran (auto) (0.00-0.03) X10*3/uL Absolute Neuts (auto) (2.0-8.3) x10*3/uL Absolute Nucleated RBC (0.0-0.012) X10*3/uL Nucleated RBC % (auto) (0.0-0.2) /100WBC PT (10.9-12.4) SEC Whole Blood PT (11.1-13.5) sec INR (0.9-1.1) Whole Blood INR (0.9-1.1) APTT (26.0-36.8) SEC Sodium (135-145) mmol/L Potassium (3.3-5.1) mmol/L Chloride (96-108) mmol/L Carbon Dioxide (22-29) mmol/L Anion Gap (12-20) BUN (9-16) mg/dL Creatinine (0.5-1.4) mg/dL Estim Creat Clear Calc Estimated GFR POC Glucose (60-115) mg/dL Random Glucose (60-115) mg/dL Calcium (8.4-10.2) mg/dL Troponin I High Sens (<3.5-17.0) ng/L Triglycerides (<150) mg/dL Cholesterol (<200) mg/dL LDL Cholesterol, Calc (<100) mg/dL HDL Cholesterol (>40) mg/dL TSH (0.32-4.0) uIU/mL Urine Color Yellow Urine Appearance Clear Urine pH 8.0 (5.0-9.0) Ur Specific [place] 1.010 (1.005-1.025) Urine Protein Negative (Neg-Trace) mg/dL Urine Glucose (UA) Negative (Negative) mg/dL Urine Ketones Negative (Negative) mg/dL Urine Blood Negative (Negative) Urine Nitrite Negative (Negative) Ur Leukocyte Esterase Negative (Negative) Urine Opiates Screen Not Detected (Not Detect) Ur Buprenorphine Scrn Not Detected (Not Detect) ng/mL Ur Oxycodone Screen Not Detected (Not Detect) ng/mL Urine Methadone Screen Not Detected (Not Detect) ng/mL Urine Fentanyl Screen Not Detected (Not Detect) Ur Barbiturates Screen Not Detected (Not Detect) Ur Phencyclidine Scrn Not Detected (Not Detect) Ur Amphetamines Screen Not Detected (Not Detect) U Benzodiazepines Scrn Not Detected (Not Detect) Urine Cocaine Screen Not Detected (Not Detect) U Marijuana (THC) Screen Not Detected (Not Detect) Independent Interpretation I performed an independent interpretation of an: CT Scan Radiology Impression Discussion of test interpretation with radiology: I have reviewed the radiologist's reading. Radiologist Impression: CT/CT head for stroke IMPRESSION: No acute intracranial hemorrhage or mass effect. This critical result was discussed with Char Rothman at 10:41 AM on 03/08/2024. It was ascertained that the content and urgency of the report was understood at the time of direct communication. CT/CT angio head neck stroke IMPRESSION: No main cerebral artery occlusion or embolus. No high degree stenosis or dissection in the vessels of the neck. origin right [employer]. Concerning thyroid disease/multinodular goiter. External Record Review External record reviewed: Inpatient record, Office record, Outpatient record and Outside ED record ([facility]) Discharge Plan Discharge Clinical Impression: Blurred vision, bilateral, Facial numbness Patient Disposition: Home, Self-Care Instructions: Blurred Vision (ED) Additional Instructions: You were evaluated in the emergency department today for blurred vision and facial numbness which has since resolved. Your evaluation, including CT/CTA head and neck, did not show evidence of an acute bleed or infarction. Your labs were normal. Your symptoms improved on their own without intervention. We recommend that you contact your neurology clinic at [facility] regarding your symptoms for a sooner follow up appointment. Follow up with your PCP as well. Return to the ED if you develop new weakness/numbness/tingling to your extremities, difficulty speaking, periods of confusion, loss of consciousness/fainting, vision changes, chest pain, shortness of breath, or any other concerning symptoms. Prescriptions: No Action (DME) rollator See Rx Instructions .Route .MEDSUPPLY Qty: 1 0RF Rx Instructions: As directed baclofen 20 mg tablet 20 mg PO TID Qty: 90 3RF magnesium hydroxide [Milk of Magnesia] 400 mg/5 mL suspension 15 ml PO BEDTIME PRN (Reason: constipation) Qty: 355 0RF lorazepam 2 mg tablet 2 mg PO DAILY@2300 ergocalciferol (vitamin D2) 1,250 mcg (50,000 unit) capsule 1,250 mcg PO Q2W acetaminophen 500 mg tablet 1,000 mg PO Q8H PRN (Reason: mild-moderate pain) Qty: 42 1RF Eliquis 5 mg tablet 5 mg PO BID@0900,1900 omeprazole 20 mg capsule,delayed release(DR/EC) 20 mg PO DAILY@0630 methylphenidate HCl 20 mg tablet 10 mg PO TID PRN (Reason: FATIGUE/CONFUSION) estradiol 0.075 mg/24 hr patch weekly 1 patch transdermal WE@0900 biotin 5,000 mcg tablet,disintegrating 10,000 mcg PO DAILY gabapentin 600 mg tablet 1,200 mg PO DAILY@1900 lamotrigine 200 mg tablet extended release 24hr 400 mg PO DAILY alprazolam 0.5 mg tablet 0.25 mg PO BID PRN (Reason: Anxiety) bupropion HCl 75 mg tablet 75 mg PO QAM enoxaparin 60 mg/0.6 mL syringe subcut valacyclovir 500 mg tablet 500 mg PO BID tizanidine 2 mg capsule 2 mg PO TID PRN Print Language: Kosovan
--- NOTE | 2024-03-08 10:25 | ECG_ITS ---
Test Reason : STROKE Blood Pressure : / mmHG Vent. Rate : 066 BPM Atrial Rate : 066 BPM P-R Int : 194 ms QRS Dur : 088 ms QT Int : 400 ms P-R-T Axes : 076 046 061 degrees QTc Int : 419 ms Sinus rhythm with frequent Premature ventricular complexes Otherwise normal ECG When compared with ECG of 15-DEC-2022 00:19, No significant change was found Referred By: Char Rothman Electronically Signed By:EMMANUEL JUNE MD
[2024-03-08 10:29] LABS: Glucose, Whole Blood 79 mg/dL (60-115)
[2024-03-08 10:34] LABS: Prothrombin Time Whole Bld POC 13.8 sec (11.1-13.5); ~PT, ~INR - Anti Coag Clinic 1.1 (0.9-1.1)
[2024-03-08] MEDS: iohexoL 350 MG/ML 100 ML INFUS..BTL 70 ML IV (10:47)
[2024-03-08 10:49] VITALS: BP 159/81; BP 174/84; PULSE 68; PULSE 80; RESP 18; TEMP 36.4; O2SAT 100; BMI 23.4
[2024-03-08 10:55] VITALS: BMI 20.8
--- NOTE | 2024-03-08 11:23 | MHC.STROKE ---
Met with patient upon arrival to ED. Pt awake, alert however slow to answer questions. Reports that she feels weak all over . Pt reports that she went to bed at approximately 2300 yesterday. States that last evening she had bilateral tingling around both of her eyes. This am when she woke, she reported that the numbness was still there and that she also had blurred vision. Patient states that she receives speech therapy for swallowing issues weekly. While at Speech therapy, she felt dizzy and continued with the blurred vision. Staff at [facility] called an ambulance and brought her to the ED. Pt was able to dress herself this am and reports that a van was able to bring her to her appointment. No obvious focal weakness noted. No slurred speech noted. Pt's voice is low/soft however answering questions appropriately. Stroke/TIA Education reviewed, booklet provided. Will continue to assist as needed.
--- NOTE | 2024-03-08 11:38 | PC.NURSE ---
Privider aware of failed swallow eval. Pt is intermit emotional, pt fixated on her bladder, stating she is not able to go to the bathroom but has had full bed pans with urine.
[2024-03-08 11:43] LABS: MANUAL DIFF FLAG NO
[2024-03-08 11:46] LABS: Basophils Percent Auto 0.5 % (0-2); Eosinophils Absolute Auto 0.1 X10*3/uL (0.0-0.4); Eosinophils Percent Auto 2.7 % (0-4); Hematocrit 40.4 % (37.0-47.0); Hemoglobin 13.7 g/dl (12.0-16.0); Imm Gran Abs Auto 0.01 X10*3/uL (0.00-0.03); Imm Gran Pct Auto 0.2 % (0.0-0.4); Lymphocytes Absolute Auto 1.6 X10*3/uL (1.2-4.9); Mean Corpuscular HGB Conc 33.9 g/dl (31.0-35.0); Mean Corpuscular Hemoglobin 31.6 pg (27.0-33.0); Mean Corpuscular Volume 93.3 fL (80.0-98.0); Mean Platelet Volume 9.6 fL (9.4-12.3); Monocytes Absolute Auto 0.3 X10*3/uL (0.1-1.2); Monocytes Percent Auto 6.7 % (2-11); Neutrophils Percent Auto 49.9 % (45-73); Platelet Count 298 X10*3/uL (160-400); Red Blood Count 4.33 X10*6/uL (4.20-5.50); Red Cell Distribution Width 13.6 % (11.0-16.0)
[2024-03-08 11:51] LABS: INTERNATIONAL NORM RATIO 1.2 (0.9-1.1); Prothrombin Time 13.5 SEC (10.9-12.4)
[2024-03-08 11:53] LABS: Partial Thromboplastin Time 41.6 SEC (26.0-36.8)
[2024-03-08 11:54] LABS: Stroke Lab Use COMPLETE
--- NOTE | 2024-03-08 12:03 | PC.NURSE ---
Pt incontinent of large amount of urine (estimated 500ml)./ Did not have a call serrano and was ujnable to access bedpan.. Was helpful and did some self-care with assistfrom RN. Stated she was unable to get out of bed. Is back on bedpan at patient request at is time.
[2024-03-08 12:12] LABS: Anion Gap 14 (12-20); Blood Urea Nitrogen 8 mg/dL (9-16); Carbon Dioxide 22 mmol/L (22-29); Chloride 110 mmol/L (96-108); Creatinine Clr Calc Pharmacy 75.9; Estimated Glomerular Filt Rate > 60; Glucose Random 71 mg/dL (60-115); Potassium 4.1 mmol/L (3.3-5.1); Sodium 142 mmol/L (135-145)
[2024-03-08 12:13] LABS: Calcium 9.5 mg/dL (8.4-10.2); Cholesterol 247 mg/dL (<200); HDL Cholesterol 77 mg/dL (>40); LDL Cholesterol Calculated 147 mg/dL (<100); Triglycerides 115 mg/dL (<150)
[2024-03-08 12:22] LABS: Troponin-I High Sensitivity < 2.7 ng/L (<3.5-17.0)
[2024-03-08] MEDS: Baclofen 20 MG TABLET PO (12:34)
[2024-03-08 12:48] LABS: Appearance Urine Clear; Color Urine Yellow; Glucose Urine UA Negative (Negative); Leukocyte Esterase Urine Negative (Negative); Nitrite Urine Negative (Negative); Urine Blood Negative (Negative); Urine Ketones Negative (Negative); Urine Protein Negative (Neg-Trace)
[2024-03-08 12:55] LABS: Amphetamine Screen Urine Not Detected (Not Detect); Barbiturates, Urine Not Detected (Not Detect); Benzodiazepines Screen Urine Not Detected (Not Detect); Buprenorphine Scr Not Detected (Not Detect); Cannabinoid Screen Urine Not Detected (Not Detect); Cocaine Screen Urine Not Detected (Not Detect); Fentanyl, urine Not Detected (Not Detect); Methadone Screen, Urine Not Detected (Not Detect); Opiate Screen Urine Not Detected (Not Detect); Oxycodone Screen Urine Not Detected (Not Detect); Phencyclidine Screen Urine Not Detected (Not Detect)
[2024-03-08 14:04] LABS: TSH reflex Free T4 0.69 uIU/mL (0.32-4.0)
[2024-03-08 15:20] VITALS: BP 159/81; PULSE 80; RESP 18; TEMP 36.4; O2SAT 100
== END 2024-03-08 15:21 | disposition home or self-care (01) ==
PROVIDERS: Registered Nurse Emergency; Emergency Provider Student in an Organized Health Care Education/Training Program; PCP Internal Medicine
DX: H53.8 Other visual disturbances (principal); R20.0 Anesthesia of skin; G35 Multiple sclerosis; I48.91 Unspecified atrial fibrillation; R51.9 Headache, unspecified; Z86.73 Personal history of transient ischemic attack (TIA), and cerebral infarction without residual deficits; Z79.899 Other long term (current) drug therapy; Z79.01 Long term (current) use of anticoagulants
CPT/HCPCS: 36415; 70450; 70496; 70498; 80048; 80061; 80307; 81003; 82947; 84443; 84484; 85025; 85610; 85730; 93005; 99285; Q9967

== ENCOUNTER → 2024-03-08 10:25 | Outpatient (BNV) | payer MEDICARE, OTHER, SELFPAY | PROVIDERS: Emergency Provider Student in an Organized Health Care Education/Training Program; PCP Internal Medicine; Visit Provider Radiology Diagnostic Radiology | DX: R51.9 Headache, unspecified (principal) | CPT/HCPCS: 70496 ==

== ENCOUNTER → 2024-03-08 10:25 | Outpatient (BNV) | payer MEDICARE, OTHER, SELFPAY | PROVIDERS: Emergency Provider Student in an Organized Health Care Education/Training Program; PCP Internal Medicine; Visit Provider Internal Medicine Cardiovascular Disease | DX: R55 Syncope and collapse (principal) | CPT/HCPCS: 93010 ==

== ENCOUNTER 2024-03-26 14:18 | Outpatient (AMB) | payer MEDICARE, OTHER, SELFPAY ==
--- NOTE | 2024-03-26 14:22 | MHC.OFFVIS ---
Vital Signs 03/26/24 14:25 Height 5 ft 3 in Weight 119 lb 6 oz BMI 21.1 BP 100/60 Blood Pressure Location Rt brachial Position Sitting Pulse 87 Pulse Source Pulse Oximeter Pulse Oximetry (%) 100 Oxygen Delivery Method Room Air Intake Visit Reasons: Shortness of breath Allergies penicillin G [Penicillin G] Allergy (Mild, Verified 03/26/24 14:28) RASH penicillin V Allergy (Unknown, Verified 03/26/24 14:28) Abdominal Pain mold Allergy (Verified 03/26/24 14:28) Headache Kncdrxd-ZNK-DlO Reductase Inhibitor Allergy (Verified 03/26/24 14:28) Weakness codeine [Codeine] Adverse Reaction (Mild, Verified 03/26/24 14:28) SEVERE ABDOMINAL PAIN HPI HPI Shortness of breath: Details: Ying is a pleasant 64 year old female, never smoker, with underlying chronic headaches, afib on Eliquis, TIA, cardiomyopathy, BHANU, Bipolar disorder, occasional tremors, RLS, and anemia. She is also under evaluation through [place] neurology for underlying neurological disorder, low suspicion for MS and considering Stiffman Syndrome. She was referred by PCP for pulmonary evaluation for progressively worsening dyspnea on exertion for the last 2-3 months with associated chest tightness. She also notes occasional dizziness, nausea and orthopnea. She denies BLE edema or PND. She also notes 25-30 lb unintentional weight loss over the last year, however majority of weightloss has been since December. She has had chest CT report not available, performed at [facility]. She had a stress test performed yesterday through [facility] Dr. Ventura and scheduled for echo May, prior EKG reportedly normal. She denies prior h/o asthma. She does report second hand smoke exposure as a child. She reports mother, smoker, with COPD and MS, otherwise no other pertinent family history. She reports seasonal allergies however minimal and has a cat at home. [facility] Medical History (Updated 03/31/24 @ 12:25 by Charmaine Jeter NP) Hypersomnia Witnessed apneic spells Arthritis Difficulty swallowing Weakness On anticoagulant therapy Lumbar spondylosis Spinal stenosis in cervical region Restless legs syndrome (RLS) Anemia Fatigue Cervical spondylosis Anxiety Bipolar disease, manic Occasional tremors Obstructive sleep apnea Insomnia GERD (gastroesophageal reflux disease) Cardiac microvascular disease TIA (transient ischemic attack) Atrial fibrillation Cardiomyopathy Surgical History H/O cervical discectomy History of partial hysterectomy History of tonsillectomy Hx of hand surgery History of radiofrequency ablation procedure for cardiac arrhythmia History of esophagogastroduodenoscopy (EGD) H/O colonoscopy H/O radiofrequency ablation (RFA) of nerve of lumbar spine Hx of cervical spine surgery Hx of shoulder surgery H/O: knee surgery Hx of cholecystectomy History of carpal tunnel release Hx of appendectomy Family History Father Dementia Cancer Mother Cancer COPD (chronic obstructive pulmonary disease) Multiple sclerosis Daughter Myasthenia Social History Household Members: Significant Other Housing: House Are you a primary long term care social worker to a significant other at home: No Do you presently have visiting nurse 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, [employer]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) Alcohol intake: never Comment: counts correct Patient Tobacco Use Status: Never used Tobacco service: No Review of Systems Const Denies chills, Denies excessive sweating, Denies fever(s), Denies headache(s) and Denies night sweats Eyes Denies dry eyes, Denies irritation and Denies itchy eyes ENT Reports Normal hearing present, Denies headache(s), Denies nasal congestion, Denies nasal discharge, Denies post nasal drip and Denies sore throat Card Denies chest pain, Denies chest pain at rest, Denies chest pain with activity, Denies claudication, Denies leg edema and Denies paroxysmal nocturnal dyspnea Resp Denies chest congestion, Denies cough, Denies excessive phlegm production, Denies pain on inspiration, Denies pain with cough, Denies stridor and Denies wheezing Musc Denies myalgias Neuro Reports Normal hearing present and Denies headache(s) Endo Denies excessive sweating Laron/Lymph Denies lymphadenopathy Aller/Immun Denies itchy eyes, Denies seasonal rhinorrhea and Denies wheezing Physical Exam Vital Signs: Last Vital Signs Pulse 87 03/26/24 14:25 BP 100/60 03/26/24 14:25 Pulse Ox 100 03/26/24 14:25 Oxygen Delivery Method Room Air 03/26/24 14:25 BMI result Body Mass Index 21.1 Const General: cooperative, healthy appearing, comfortable, no acute distress, well developed and alert Orientation/consciousness: patient oriented x3 Limitations: no limitations HEENT Head: Yes normal to inspection, Yes normocephalic and Yes atraumatic Ears: hearing grossly normal bilaterally and external ears normal Eyes General: appearance normal, both eyes and all related structures Eyelids: Yes eyelids normal Sclerae: sclerae normal EOM: EOMs intact bilaterally Neck Neck: Yes normal visual inspection and Yes no lymphadenopathy Lymphatic: no lymphadenopathy noted Chest Chest palpation & inspection: normal inspection of the chest Resp Effort & Inspection: normal respiratory effort, able to speak in complete sentences, no audible wheezes, no cough, no stridor, not tachypneic, no tripod positioning and no use of accessory muscles Auscultation: clear to auscultation bilaterally Cardio Jugular venous distension: no JVD Rate: regular rate Rhythm: regular rhythm Skin Other: warm, dry General skin exam: no rashes or lesions noted Neuro General: patient oriented x3 Cranial nerves: Yes Normal hearing present Cognition (Neuro): normal cognition Gait exam (Neuro): Normal gait present Extrem General: Yes normal to inspection, Yes capillary refill normal, Yes no clubbing, cyanosis or edema and Yes no pedal edema Psych Appearance: grossly normal and well kempt Speech and movement: Normal speech and movement present and Clear speech present Affect: normal affect Attitude: cooperative Thought process: Normal thought process present Thought content: Normal thought content present Insight: Good insight present (Psych) Judgement: Good judgement present (Psych) Assessment & Plan Assessment & Plan (1) Dyspnea: Code(s): R06.00 - Dyspnea, unspecified Category: Medical Plan Ying presents for pulmonary evaluation for worsening dyspnea on exertion. Will empirically trial albuterol MDI and send for PFT to assess for any obstructive or restrictive defect. Chest CT performed at [facility], will obtain. Will request records from Neuro and Cardiology. All questions were answered and patient is in agreement of plan. Will follow up in 4-6 weeks or sooner if needed. Orders: Orders PFT pulmonary function test Today R06.00 - Dyspnea, unspecified Coding Level of Care Code New Pt Level 4 (38191) Diagnoses Dyspnea R06.00
[2024-03-26 14:25] VITALS: BP 100/60; PULSE 87; O2SAT 100; BMI 21.1
== END 2024-03-26 15:22 | disposition home or self-care (01) ==
PROVIDERS: PCP Internal Medicine; Visit Provider Nurse Practitioner Family
DX: R06.00 Dyspnea, unspecified (principal)
CPT/HCPCS: 99204

== ENCOUNTER → 2024-03-26 14:18 | Outpatient (BNVA) | payer MEDICARE, OTHER, SELFPAY | PROVIDERS: PCP Internal Medicine; Visit Provider Nurse Practitioner Family | DX: R06.00 Dyspnea, unspecified (principal) | CPT/HCPCS: 99202 ==

== ENCOUNTER 2024-03-29 09:30 | Outpatient (RCR) | payer MEDICARE, OTHER, SELFPAY ==
--- NOTE | 2024-03-29 16:56 | MHC.SL.SOA ---
Referring Provider: VON Cyr Reason for Referral: Voice Evaluation Date of Plan of Treatment:10/22/23 Onset of Symptoms/Illness:04/26/23 Date Treatment Started:10/22/23 Medical Diagnosis:Vocal Fold Nodules Primary Speech Language Diagnosis:F80.1 Expressive language disorder Secondary Speech Language Diagnosis:R13.19 Other Dysphagia Number of Authorized Visits Remaining: Authorization End Date: Reason for Visit:81016 Individual Treatment Subjective: Ying missed last week with a flare-up of symptoms and was unable to reschedule. After discussing her progress and updated medical issues, we decided to discharge her from Voice Therapy at this time. Objective: Ying was initially evaluated on 10/22/23 and seen for 8 treatment visits since 01/12/24. On 03/08/24 she began to experience light-headedness during her visit and 911 was called. She was admitted to the ED, but left later that day. Her initial concern was with her vocal loudness. She wanted to be louder for her Grandchildren. However between evaluation and treatment she was diagnosed with a unilateral vocal fold nodule. We addressed breath support and respiration, however this became too much for her when her COPD symptoms started to flare up. She transitioned to a short course of resonance therapy, and met her goals quickly. 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 She has been seeking a more accurate diagnosis for her symptoms but has had frustration with multiple medical providers. She is scheduled for a Sleep Study in late February. She reports her primary goal is to speak louder so her Grandchilden can understand her. She is formally discharged at this time having met her goals. She is reporting multiple medical issues that may also be contributing to her dysphonia including; poor air quality at home, history of TIA, Immunodeficiency, and Cervical Spine stenosis. We continue to focus on breath support to prevent worsening of her vocal fold nodules. Plan: Goal # : 1.1 Ying will produce diaphragmatic breathing in the context of specific exercises with 80% accuracy. Status of Goal: Goal Met Goal # : 2.1 Ying will use vocal flow techniques to produce increased volume and resonance for words, phrases and sentences with 80% accuracy2.1 Status of Goal: Goal Met Goal # : 3.1 Ying will raise and sustain volume to a range of 85-90 dBSPL on sustained phonation tasks with 80% accuracy. 3.2 Ying will sustain volume above 85 dB on structured short reading tasks with 80% accuracy 3.3 Ying will sustain volume above 85 dB in a brief conversational exchange with 80% accuracy. Status of Goal: Discharge Goal Goal # : 4.1 Ying will demonstrate easy-onset speech at the word level with >80% accuracy an minimal assistance. Status of Goal: Goal Met Seen by: Graduate/Clinical Fellow: No Supervisory Statement: N/a Speech Language Pathologist: Arsenio Smith M.A., CCC-BOOKING PRIZER
== END 2024-03-30 09:51 | disposition home or self-care (01) ==
LOC: HO.SH 09:30
PROVIDERS: PCP Internal Medicine; Visit Provider Physician Assistant
DX: R13.10 Dysphagia, unspecified (principal)
CPT/HCPCS: 92507

== ENCOUNTER 2024-05-18 14:38 | Outpatient (REF) | payer MEDICARE, OTHER, SELFPAY ==
--- NOTE | 2024-05-18 14:46 | PFT_ITS ---
Flows: FEV1: 90 % of predicted at 2.08 L FVC: 98 % of predicted at 2.81 L FEV1/FVC: 74 % Bronchodilator response: Present in small to medium airways only Volumes: Total lung capacity: 85 % of predicted at 4.14 L Residual volume: 73 % of predicted at 1.28 L Slow vital capacity: 91 % of predicted at 2.86 L Expiratory reserve volume: 90 % of predicted at 0.67 L Diffusion capacity: Normal Impression: No obstructive or restrictive ventilatory defect. Bronchodilator response is present in small to medium airways only. MTDD
--- OUTSIDE RECORDS SUMMARY | 2024-05-18 17:10 | XMS_ITS ---
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 Name Role Phone DanielaGustavo Primary Care Provider ALLERGIES Allergen (clinical drug ingredient) Drug/Non Drug Allergy documented on EMR Reaction Allergy Type Onset Date Status penicillin V Penicillin V Potassium urticaria Drug Allergy Active REASON FOR VISIT 6 month f/u, Follow up Paroxysmal atrial fibrillation MEDICATIONS Medication SIG (Take, Route, Frequency, Duration) Notes Start Date End Date Status Baclofen 20 MG 1 tablet Orally Thre e times a day Active Nitroglycerin 0.[address] 1 tablet unde r the tongue every 5 minutes if needed for chest pain for up to 3 doses Sublingual Once a day Active Ondansetron HCl 4 MG 1 tablet as needed Orally Once a day Active Omeprazole 20 MG 1 capsule Orally Twi ce a day Active tiZANidine HCl 2 MG 1 tablet as needed Orally Twice a day Active Gabapentin 600 MG 2 tablets at bedtime Orally Once a day Active Valtrex 1 GM 1 tablet Orally Once a day Active Estradiol 0.075 MG/24HR 1 patch to skin Transdermal Once a week Active Ergocalciferol 1.25 MG (50175 UT) 1 capsule Orally Once a week Active LORazepam 2 MG 1 tablet at bedtime as needed Orally Once a day Active LaMICtal XR 200 MG 2 tablets Orally Onc e a day Active Apixaban 5 MG 1 tablet Orally Twic e a day Active buPROPion HCl 75 MG 1 tablet Orally Twic e a day Active SOCIAL HISTORY Tobacco Use: Social History Observation Description Date Details (start date - stop date) Former Smoker NA - NA Sex Assigned At : Social History Observation Description Sex Assigned At Unknown Tobacco Use/Smoking Question Answer Notes Patient is a former smoker How long has it been since y ou last smoked? > 10 years Additional Findings: Tobacco Non-User Fo rmer smoker, currently using no form of tobacco Alcohol Screen Question Answer Notes Did you have a drink containing alcohol in the p ast year? No Points 0 Interpretation Negative VITAL SIGNS BMI 21.08 kg/m2 03/24/2024 Blood pressure systolic 102 mm Hg 03/24/20 24 Blood pressure diastolic 56 mm Hg 024 Height 63 in 03/24/2024 Weight 119 lbs 03/24/2024 Encounters Encounter Location Date Provider Diagnosis Gustavo Suarez DO, [address] [id number] 03/24/2024 Gustavo Suarez Coronary artery spas m I20.1 ; Bipolar disorder, current episode mixed, moderate F31.62 ; Paroxysmal atrial fibrillation I48.0 ; Mixed stress and urge urinary incontinence N39.46 ; Cervical radiculopathy M54.12 and Epigastric pain R10.13 ASSESSMENTS Encounter Date Diagnosis Assessment Notes Treatment Notes Treatment Clinical Notes 03/24/2024 Coronary artery spasm (ICD-10 - I20.1) Follow up with Cardiology 03/24/2024 Bipolar disorder, current episode mixed, moderate (ICD-10 - F31.62) 03/24/2024 Paroxysmal atrial fibrillation (ICD-10 - I48.0) Follow up with Cardiology 03/24/2024 Mixed stress and urge urinary incontinence (ICD-10 - N39.46) 03/24/2024 Cervical radiculopathy (ICD-10 - M54.12) 03/24/2024 Epigastric pain (ICD-10 - R10.13) PLAN OF TREATMENT Medication Medication Name Sig Start Date Stop Date Notes Baclofen 20 MG 1 tablet Orally Thre e times a day Nitroglycerin 0.[address] 1 tablet unde r the tongue every 5 minutes if needed for chest pain for up to 3 doses Sublingual Once a day Ondansetron HCl 4 MG 1 tablet as needed Orally Once a day Omeprazole 20 MG 1 capsule Orally Twi ce a day tiZANidine HCl 2 MG 1 tablet as needed O rally Twice a day Gabapentin 600 MG 2 tablets at bedtime Orally Once a day Valtrex 1 GM 1 tablet Orally Once a day Estradiol 0.075 MG/24HR 1 patch to skin Transdermal Once a week Ergocalciferol 1.25 MG (5000 0 UT) 1 capsule Orally Once a week LORazepam 2 MG 1 tablet at bedtime as needed Orally Once a day LaMICtal XR 200 MG 2 tablets Orally Once a day Apixaban 5 MG 1 tablet Orally Twice a day buPROPion HCl 75 MG 1 tablet Orally Twice a day Treatment Notes Assessment Notes Coronary artery spasm Follow up with Car diology Paroxysmal atrial fibrillation Follow up with Cardiology Next Appt Details Follow Up: 3 Months, Reason: follow up visit Progress Notes * Examination Category Sub-Category Detail Notes General Examination GENERAL APPEARANCE: in no ac redding distress, well developed, well nourished HEAD: normocephalic, atrau matic HEART: no murmurs, regular rate and rhythm, S1, S2 normal LUNGS: clear to auscultatio n bilaterally ABDOMEN: normal, bowel sounds present, soft, nontender, nondistended SKIN: warm and dry EXTREMITIES: no edema PSYCH: alert, oriented, cog nitive function intact
--- OUTSIDE RECORDS SUMMARY | 2024-05-18 17:10 | XMS_ITS ---
Author Organization [facility] Address [address] [place] [address] Care Team Providers Care Line Construction Engineer Name Role Phone Gustavo Suarez MD Primary Care Provider Unavail Magen Castro Unavailable [phone] REASON FOR VISIT Issue with boot Encounters Encounter Location Date [facility] [address] [id number] 12/09/2023 Magen Acevedo Plan Of Treatment No Information Progress Notes * BERTINJoselineDOB:[birth year] (63 yo F)Acc No.[id number]:12/09/2023 Patient:?Ying Denton :1960???Age:63 Y???Sex:Female Address:[place] [address] * true * Date:? Generated for Kristeni aldair/Sierra/eTransmitting on:?05/18/2024 05:10 PM EST
--- OUTSIDE RECORDS SUMMARY | 2024-05-18 17:10 | XMS_ITS | Data Portability ---
Author Organization [place] [facility] Formerly [facility], Allergy Address [address] [address] Assessment No assessment recorded. Plan of Treatment Reminders Order Date Submit Date Provider Last Modified By Organization Details Last Modified Time Details Appointments None record ed. Lab None record ed. Referral None record ed. Procedures None record ed. Surgeries None record ed. Imaging None record ed. Medication Orders None record ed. Patient TargetsNo targets recorded. Patient InstructionsNo instructions recorded. Reason for Referral None Reported. Results Created Date Observation Date Name Description Value Unit Range Abnormal Flag Note LastModifiedBy Organization Detail LastModifiedTime 11/11/19 24 [place], modif ied erikau m adeel ow study No observ ation record ed. [email or web address] Not Available 2023 11:50:41 12/24/19 24 03/05/2020 imagi ng/di agnos tic resul t No observ ation record ed. [email or web address] Not Available 22:05:49 12/24/19 24 03/09/2020 imagi ng/di agnos tic resul t No observ ation record ed. [email or web address] Not Available 22:05:51 12/24/19 24 03/15/2020 imagi ng/di agnos tic resul t No observ ation record ed. [email or web address] Not Available 22:06:03 Result Notes None recorded. 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, nasal cavity and accessory sinuses; Note: Date Diagnosed : 04/07/2020 1:44 PM (D14.0) Not Available [facility] 02:19:03 Ataxia 99603275 Active 2019 Ataxia, unspecifi ed; Note: Date Diagnosed : 04/07/2020 1:44 PM (R27.0) Not Available [facility] 4 02:18:41 Dysphagia 62562755 Active 2023 GISELA PRUETT MD [address] [facility],[place] [address], [place], [address] , [facility] - [facility] [place] 10:19:25 Gastroeso phageal reflux disease without esophagit is 828592009 Active 2023 GISELA PRUETT MD 100 [facility],[place] [address], [place], [address] , [facility] - [facility] 4 10:19:44 Chronic hoarsenes s 51175493798 05 Active 2023 GISELA PRUETT MD 100 [facility],[place] [address], [place], [address] , [facility] - [facility] [place] 10:20:46 Problem Notes None recorded. Procedures Surgical History Date Name Laterality Status Provider Name and Address Organization Details Recorded Time 11/11/2023 FFL_RE completed GISELA PRUETT MD [address] [facility],[place] [address], [place], [address], [facility] - [facility] 11/11/2023 10:26:08 Imaging Results Imaging Date Name Status LastModified by Organiz ation Details LastModified Time 11/11/2023 [place], modified barium swallow study completed [email or web address] Information not available 11/11/2023 11:50:41 03/05/2020 imaging/diagn ostic result completed Information not available 12/24/2023 22:05:49 03/09/2020 imaging/diagn ostic result completed Information not available 12/24/2023 22:05:51 03/15/2020 imaging/diagn ostic result completed Information not available 12/24/2023 22:06:03 Procedure Notes None recorded. Medical Equipment None Reported. Allergies Allergen ID Allergen Name Allergen Category Reaction Reaction Severity Criticality Documentation Date Start Date Code Code System Note Provider Name and Address Organization Details Recorded Time 20199 Medicinal product containin g penicilli n and acting as antibacte rial agent (product) medicatio n hives Not available Not available 09/16/2023 43743 05 SNOMED React ion: skin rashe s, hives ;; Not Available [facility] 4 00:48:35 08400 codeine medicatio n nausea Not available Not available 09/16/2023 2670 RxNorm React ion: Stoma ch cramp s; Not Available [facility] 4 00:48:40 28782 acetamino phen / oxycodone medicatio n nausea Not available Not available 09/16/2023 55132 3 RxNorm React ion: nause a;; Not Available [facility] 4 00:48:40 Medications Name Sig Start Date Stop Date Status Note LastModified by Organization Details LastModified Time cyclobenza hema 10 mg tablet TAKE 1 TABLET BY MOUTH EVERY DAY active Not Available Not Available No t Available gabapentin 600 mg tablet TAKE 1 TABLET BY MOUTH EVERY EVENING AND AT BEDTIME OR 2 TABLETS AT BEDTIME AND 1/2 TABLET TWICE DAILY active Not Available Not Available No t Available doxycyclin e hyclate 100 mg capsule TAKE 1 CAPSULE BY MOUTH TWICE DAILY active Not Available Not Available No t Available atorvastat in 20 mg tablet active Medicatio n ID: [id number] Br and Name: atorvasta tin Send Method: E-Prescri bed Subs Allowed: subs OK Specia l Instructi on: take 1 tablet by mouth once daily Med icationGe nericName : atorvasta tin Not Available Not Available Not Available tizanidine 2 mg tablet active Not Available Not Available Not Available valacyclov ir 1 gram tablet TAKE 1 TABLET BY MOUTH DAILY active Not Available Not Available No t Available methylphen idate 20 mg tablet TAKE 1 TABLET BY MOUTH THREE TIMES DAILY active Not Available Not Available No t Available prednisone 20 mg tablet TAKE 1 TABLET BY MOUTH EVERY DAY FOR 5 DAYS active Not Available Not Available No t Available isosorbide mononitrat e ER 30 mg tablet,ext ended release 24 hr active Medicatio n ID: [id number] Br and Name: isosorbid e mononitra te Send Method: E-Prescri bed Subs Allowed: subs OK Medica tionGener icName: isosorbid e mononitra te Not Available Not Available Not Available valacyclov ir 500 mg tablet TAKE 2 TABLETS BY MOUTH TWICE DAILY FOR 10 DAYS FOR RECURRENT EPISODES active Not Available Not Available No t Available tramadol 50 mg tablet TAKE 1 TABLET BY MOUTH EVERY 6 HOURS active Not Available Not Available No t Available acetaminop hen 500 mg tablet TAKE 2 TABLET ORALLY EVERY 8 HOURS NEEDED FOR MILD-MODE RATE PAIN active Not Available Not Available No t Available bupropion HCl SR 100 mg tablet,12 hr sustained- release active Not Available Not Available Not Available baclofen 20 mg tablet TAKE 1 TABLET BY MOUTH THREE TIMES DAILY FOR MUSCLE SPASM active Not Available Not Available No t Available alprazolam 0.5 mg tablet active Not Available Not Available Not Available hydromorph one 2 mg tablet TAKE 1 TABLET BY MOUTH EVERY 6 HOURS NEEDED FOR PAIN active Not Available Not Available No t Available estradiol 0.075 mg/24 hr weekly transderma l patch APPLY 1 PATCH ONCE A WEEK DIRECTED active Not Available Not Available No t Available lorazepam 2 mg tablet TAKE 1 AND 1/2 TABLETS BY MOUTH AT BEDTIME active Not Available Not Available No t Available meclizine 25 mg tablet TAKE 1 TABLET BY MOUTH THREE TIMES DAILY NEEDED active Not Available Not Available No t Available benzonatat e 100 mg capsule TAKE 1 CAPSULE BY MOUTH EVERY 4 HOURS NEEDED FOR COUGH active Not Available Not Available No t Available erythromyc in 5 mg/gram (0.5 %) eye ointment active Not Available Not Available Not Available bupropion HCl 75 mg tablet TAKE 1 TABLET BY MOUTH TWICE DAILY active Not Available Not Available No t Available nitroglyce rin 0.[address] ONE TABLET UNDER TONGUE NEEDED FOR CHEST PAIN EVERY 5 MINUTES FOR UP TO 3 DOSES active Not Available Not Available No t Available docusate sodium 100 mg capsule TAKE 1 CAPSULE BY MOUTH TWICE DAILY NEEDED FOR CONSTOPAT ION active Not Available Not Available No t Available gabapentin 300 mg capsule active Medicatio n ID: [id number] Br and Name: gabapenti n Send Method: E-Prescri bed Subs Allowed: subs OK Medica tionGener icName: gabapenti n Not Available Not Available Not Available omeprazole 20 mg capsule,de layed release TAKE 1 CAPSULE BY MOUTH TWICE DAILY active Not Available Not Available No t Available ergocalcif anastasiia (vitamin D2) 1,250 mcg (50,000 unit) capsule TAKE 1 CAPSULE BY MOUTH 1 TIME A WEEK active Not Available Not Available No t Available ondansetro n 4 mg disintegra ting tablet TAKE 1 TABLET BY MOUTH EVERY 8 HOURS NEEDED FOR NAUSEA AND VOMITING active Not Available Not Available No t Available oxycodone 5 mg tablet TAKE 1 TABLET BY MOUTH EVERY 6 HOURS NEEDED FOR SEVERE PAIN active Not Available Not Available No t Available enoxaparin 60 mg/0.6 mL subcutaneo us syringe active Not Available Not Available N ot Available ezetimibe 10 mg tablet TAKE 1 TABLET BY MOUTH DAILY active Not Available Not Available No t Available cyclobenza hema 5 mg tablet TAKE 1 TABLET BY MOUTH THREE TIMES DAILY active Not Available Not Available No t Available metoprolol tartrate 25 mg tablet active Medicatio n ID: [id number] Br and Name: metoprolo l tartrate Send Method: E-Prescri bed Subs Allowed: subs OK Specia l Instructi on: TAKE HALF A TABLET BY MOUTH TWICE DAILY Med icationGe nericName : metoprolo l tartrate Not Available Not Available Not Available lamotrigin e ER 200 mg tablet,ext ended release 24 hr TAKE 1 TABLET BY MOUTH TWICE DAILY active Not Available Not Available No t Available Eliquis 5 mg tablet TAKE 1 TABLET BY MOUTH TWICE DAILY active Not Available Not Available No t Available guaifenesi n ER 600 mg tablet, extended release 12 hr TAKE 1 TABLET BY MOUTH TWICE DAILY NEEDED FOR COUGH active Not Available Not Available No t Available Vitals Date Recorded Body height Body mass index (BMI) Body weight Provider Name and Address Organization Details Last Updated DateTime 11/11/2023 160.02 cm 21.8 kg/m2 71039.86 g Delores Mejía [place] [facility] 11/11/2023 09:58:27 Social History None recorded. Functional Status None recorded. Mental Status None recorded. Family History Nothing Reported. Medical History No medical history recorded. Gynecological HistoryNo gynecological history recorded. Obstetrics History GPAL:G 0 P 0 0 0 0 Past Encounters Encounter ID Performer Location Encounter Start Date Encounter Closed Date Diagnosis/Indication Diagnosis SNOMED-CT Code Diagnosis ICD10 Code Diagnosis Note [id number] GISELA PRUETT MD [facility] [address] [place] [address] 11/11/2023 09:08:06 11/11/2023 10:28:26 Dysphagia 33324988 R13.10 see below Gastroesop hageal reflux disease without esophagitis 740048777 K21.9 continue omeprazole per prescribin g provider Chronic hoarseness 86938 90373 105 R49.0 Her right vocal cord is sluggish. No glottic gap. Likely recovering after ACDF. MBS showed a safe swallow. I suspect her neuromuscu lar disorder may contribute to her dysphagia as well and I recommend she keep f/u with her neurologis ts at [place]. No ENT interventi on needed. No tumors on exam. I gave reassuranc e. Health Concerns Section Related Observation LastModified by Organization Detai ls LastModified Time None Recorded Concern Status LastModified by Organization Details LastModified Time None Recorded Advance Directives Directive None Recorded Payers Encounter Date Sequence Insurance Name Policy Number Policy Viveros Covered Member ID Viveros Member ID Guarantor Name 11/11/2023 1 [employer] (MEDICARE REPLACEMENT PPO) [id number] Elke Denton [id number] Ying Denton 11/11/2023 2 [employer]NAGEMENT (PPO) Ying Denton [id number] Ying Denton Notes Date Note Type Note Provider Name and Address Organization Details Recorded Time 11/11/2023 text/html She reports difficulty swallowing. She chokes on liquids. She also has trouble with solids. This has been the case since 2020. She had an MBS 06/2023 which showed some mild dysphagia but no aspiration and she did not need therapy or diet modification. This MBS was done after receiving swallow therapy which she felt improved her swallowing. She is being worked up at [place] for a neurologic disorder. She has muscle cramping and she can't use her left arm well. On omeprazole for GERD. Hx of ACDF. She has had some voice trouble since with difficulty projecting. GISELA PRUETT MD 100 [facility] [[email or web address]] [address], [place], [address], [place] [facility] Former[facility] 11/11/2023 10:28:19 OBGyn Episode No OBEpisode recorded.
--- OUTSIDE RECORDS SUMMARY | 2024-05-18 17:10 | XMS_ITS ---
Author Organization [facility] Address [address] [place] [address] Care Team Providers Care Sales Attendant Building Materials Name Role Phone Gustavo Suarez MD Primary Care Provider Unavail Magen Castro Unavailable [phone] REASON FOR VISIT [id number] Encounters Encounter Location Date Provider Diagnosis [facility] [address] [place] [address] 12/11/2023 Magen Acevedo Plan Of Treatment No Information Progress Notes * JOVANNAJoselineDOB:[birth year] (63 yo F)Acc No.[id number]:12/11/2023 Patient:?Ying Denton :1960???Age:63 Y???Sex:Female Address:[place] [address] * true * Date:? Generated for Printi aldair/Sierra/eTransmitting on:?05/18/2024 05:09 PM EST
--- OUTSIDE RECORDS SUMMARY | 2024-05-18 17:10 | XMS_ITS | Patient Health Record ---
Author Organization [facility] Address [address] [facility] [place] [address] Care Team Providers Care Rn Documentation Name Role Phone Gustavo Suarez MD Primary Care Provider Unavail able Magen Acevedo Unavailable [phone] Allergies Allergen (clinical drug ingredient) Drug/Non Drug Allergy documented on EMR Reaction Allergy Type Onset Date Status amoxicillin Amoxicillin rash Drug Allergy Act joel Penicillin rash Drug Allergy Active codeine Codeine stomach pain Drug Allergy Acti ve Reason For Referral No Information Medications Medication SIG (Take, Route, Frequency, Duration) Notes Start Date End Date Status Physical Therapy . . . 2-3x/week for 3-4 weeks 12/22/2023 Active Methylphenidate 5mg once a day Active LaMICtal 300 mg 1 tablet Orally Once a day for 30 day(s) Active Gabapentin Active Propranolol HCl 10 MG 1 tablet Orally Twice a day for 30 day(s) Not-Taking Estradiol 0.0375 MG/24HR 1 patch to skin Transdermal Two times a Week Active Gabapentin 400 MG 1 capsule Orally i po qd hs for 30 Not-Taking Atorvastatin Calcium Active Physical Therapy . . . 2-3x/week for 3-4 weeks 05/20/2017 Not-Taking Lorazepam Active Walking Boot/Pneumatic As directed Wear Daily for Until further notice 04/14/2017 Not-Taking Omeprazole Active Ibuprofen 800 MG 1 tablet with food or milk as needed Orally Three times a day for 30 days 03/26/2017 Not-Taking Labetalol HCl 100 MG Orally Twice a day Not-Taking Pramipexole Dihydrochloride Not-Taking oxyBUTYnin Not-Takin g Meloxicam 15 MG 1 tablet Orally Once a day for 30 day(s) 06/12/2017 Not-Taking Wellbutrin 100mg Not-Takin g Voltaren 1 % as directed Externally Active Walking Boot/Pneumatic As directed Wear Daily for Until further notice Active amLODIPine Besylate Not-Taking Metoprolol Tartrate 25 MG 1/2 tab Orally Twice a day Not-Taking Isosorbide Mononitrate Not-Taking Ativan 1 MG 1 tablet Orally Twice a day Not-Taking Aspir-81 Not-Taking Physical Therapy . . . 2-3x/week for 3-4 weeks 09/26/2021 Active Valtrex 1000 mg 1 tablet Orally every 12 hrs for 10 day(s) Active Nitroglycerin Active Abilify 10 MG 1 tablet Orally Once a day for 30 day(s) Not-Taking Immunizations Vaccine Route Administration Date Status Comme nts COVID-19 Pfizer BioNTech Vaccine Unknown 09/14/2021 Adm inistered 1st 12/14/20 Social History Tobacco Use: Social History Observation Description Date Details (start date - stop date) Former Smoker 05/05/1975 - 05/05/1993 Tobacco Use/Smoking Question Answer Notes Are you [...] Are you an other tobacco user? No Problems Problem Type SNOMED Code ICD Code Onset Dates Problem Status W/U Status Risk Notes Problem Localized, primary osteoarthritis of the ankle and/or foot (519888106) Primary osteoarthrit is, right ankle and foot (M19.071) Active confirmed Problem Acquired hallux valgus (01093888) Hallux valgus (acquired), right foot (M20.11) Active confirmed Problem Acquired hammer toe of right foot (0173042360686685) Other hammer toe(s) (acquired), right foot (M20.41) Active confirmed Problem 07221119 MS (multiple sclerosis) (G35) Active confirmed Vital Signs Height 5 ft 4 in in 12/22/2023 Weight 131 lbs 12/22/2023 BMI 22.48 kg/m2 12/22/2023 Encounters Encounter Location Date Provider Diagnosis [address] [address] 10/22/2023 Magen Acevedo Pain in right foot M79.671 ; Sprain of anterior talofibular ligament of right ankle, sequela S93.491S ; Contusion of right foot, sequela S90.31XS ; Stress fracture, right foot, sequela M84.374S ; Metatarsalgia, right foot M77.41 and Peripheral neuropathic pain M79.[address] [address] 11/24/2023 Magen Acevedo Pain in right foot M79.671 ; Sprain of anterior talofibular ligament of right ankle, sequela S93.491S ; Contusion of right foot, sequela S90.31XS ; Stress fracture, right foot, sequela M84.374S ; Metatarsalgia, right foot M77.41 and Peripheral neuropathic pain M79.[address] [address] 12/22/2023 Magen Acevedo Pain in right foot M79.671 ; Sprain of anterior talofibular ligament of right ankle, sequela S93.491S ; Metatarsalgia, right foot M77.41 and Peripheral neuropathic pain M79.[address] [address] 10/20/[address] [address] 10/22/[address] [address] 10/27/[address] [address] 11/04/[address] [address] 11/27/2023 [address] [place] [address] 12/09/2023 [facility] [place] [address] [place] [address] 12/11/2023 [facility] Assessments Encounter Date Diagnosis (ICD Code) Assessment Notes Treatment Notes Treatment Clinical Notes Section Notes 10/22/2023 Pain in right foot (ICD-10 - M79.671) 10/22/2023 Sprain of anterior talofibular ligament of right ankle, sequela (ICD-10 - S93.491S) 11/24/2023 Pain in right foot (ICD-10 - M79.671) 11/24/2023 Sprain of anterior talofibular ligament of right ankle, sequela (ICD-10 - S93.491S) 12/22/2023 Pain in right foot (ICD-10 - M79.671) 12/22/2023 Sprain of anterior talofibular ligament of right ankle, sequela (ICD-10 - S93.491S) 12/22/2023 Metatarsalgia, right foot (ICD-10 - M77.41) 11/24/2023 Contusion of right foot, sequela (ICD-10 - S90.31XS) 10/22/2023 Contusion of right foot, sequela (ICD-10 - S90.31XS) 10/22/2023 Stress fracture, right foot, sequela (ICD-10 - M84.374S) 11/24/2023 Stress fracture, right foot, sequela (ICD-10 - M84.374S) 12/22/2023 Peripheral neuropathic pain (ICD-10 - M79.2) 11/24/2023 Metatarsalgia, right foot (ICD-10 - M77.41) 10/22/2023 Metatarsalgia, right foot (ICD-10 - M77.41) 10/22/2023 Peripheral neuropathic pain (ICD-10 - M79.2) 11/24/2023 Peripheral neuropathic pain (ICD-10 - M79.2) Plan Of Treatment Pending Test Test Name Order Date X ray : Ankle, right 2V 10/15/2018 X ray : Foot, right 2V 04/14/2017 X ray : Foot, right 2V 04/24/2017 X ray : Foot, right 2V 05/14/2017 X ray : Foot, right 3V 03/09/2013 X ray : Foot, right 3V 02/12/2017 X ray : Foot, right 3V 06/12/2017 X ray : Foot, right 3V 08/27/2017 X ray : Foot, right 3V 10/15/2018 X ray : Foot, right 3V 09/26/2021 X ray : Foot, right 3V 10/23/2021 X ray : Foot, right 3V 10/22/2023 95348- Debride <25 sq cm 05/20/2017 67594-PNLEZMCE OF HEMATOMA/FLUID 019 X ray : Ankle, right 3V 10/22/2023 Insurance Providers Payer Name Payer Address Payer Phone Subscriber Number Group Number Insured Name Patient Relationship to Insured Coverage Start Date Coverage End Date A[employer] [address] [place] [address] [id number] Ying Denton Self - patient is the insured [employer] [address] [place] [address] [id number] Ying Denton Self - patient is the insured Medical (General) History Medical History History ICD Code anxiety depression chronic sinusitis chicken pox measles joint implants/screws Psychiatric disorder Surgical History Surgery Date(Month/Year) Partial hysterectomy 1992 3 discs removed from neck appendectomy 1973 bunionectomy knee, meniscus rotator cuff tear repair Kike w ORIF R, HT R 2nd & 3rd repair 1 06/11/16 Hospitalization History Reason Date(Month/Year) [facility] [place], [place], from [facility] 08/27/2017 [facility] - chest pain 019
--- OUTSIDE RECORDS SUMMARY | 2024-05-18 17:11 | XMS_ITS | Patient Health Record ---
Author Organization [facility] Address [address] [facility] [address] [place] [address] Care Team Providers Care Glost Kiln Operator Name Role Phone Matt Guevara Primary Care Provider LEBRON Cordon Unavailable [phone] Reason For Referral No Information Plan Of Treatment No Information Insurance Providers Payer Name Payer Address Payer Phone Subscriber Number Group Number Insured Name Patient Relationship to Insured Coverage Start Date Coverage End Date A[employer] [address] [place], [place] [id number] Ying Denton Self - patient is the insured [facility] [address] [place] [address] [id number] Ying Denton Self - patient is the insured
--- OUTSIDE RECORDS SUMMARY | 2024-05-18 17:11 | XMS_ITS ---
Author Organization Gustavo Suarez DO, [facility] Address [address] [place], [place] [id number] Care Team Providers Care Sales Representative Publications Name Role Phone Gustavo Suarez Primary Care Provider [phone] REASON FOR VISIT Message Encounters Encounter Location Date Provider Diagnosis Gustavo Suarez DO, FACP [address] [place] [phone] 03/08/2024 Gustavo Suarez PLAN OF TREATMENT No Information
--- OUTSIDE RECORDS SUMMARY | 2024-05-18 17:11 | XMS_ITS | Patient Health Record ---
Author Organization Gustavo Suarez DO, FACP Address [address] [place] [phone] Care Team Providers Care Night Baker Name Role Phone Gustavo Suarez Primary Care Provider [phone] ALLERGIES Allergen (clinical drug ingredient) Drug/Non Drug Allergy documented on EMR Reaction Allergy Type Onset Date Status penicillin V Penicillin V Potassium urticaria Drug Allergy Active RESULTS Component Value Reference Range Notes XR cervical spine 4V Reviewed date:06/02/2023 09:26:34 AM Interpretation:Abnormal Performing Lab: Notes/Report: [facility] [address] [place] [address] Drive [address] [place] [address] XRay Report Signed Patient: Ying Denton MR#: [id number] : 1960 Acct:[id number] Age/Sex: 63 / F ADM Date: 05/27/23 Loc: HO.HOSX Attending Dr: Cristóbal LONGORIA Ordering Physician: Cristóbal Singh Date of Service: 05/27/23 Procedure(s): XR cervical spine 4V Accession Number(s): [id number] cc: Gustavo Suarez DO; Cristóbal Singh EXAMINATION: XR CERVICAL SPINE CLINICAL INFORMATION: Status-post spine surgery. COMPARISON: Cervical spine radiographs dated 09/05/2017; portions of the MRI cervical spine dated 12/15/2022. TECHNIQUE: Frontal and lateral (neutral, flexion and extension) views of the cervical spine were obtained. FINDINGS: There is bony demineralization. There is moderately severe degenerative disc disease at C2-C3, with a 2 mm anterolisthesis and anterior spondylosis. There is well-maintained alignment status-post C3-C4 through C5-C6 anterior fusions and discectomies, with intact C3-C4 anterior Low Profile fixator device and more inferior C4-C5 and C5-C6 anterior fixator plate, fixator screws and disc spacers. No hardware failure or loosening is seen. There is marked degenerative disc disease at C6-C7 and C7-T1, with anterior spondylosis. No acute fracture or spondylolisthesis is seen. There is no instability with flexion or extension. The posterior elements are intact. There is multi-level cervical spondylosis. The dens is intact. No prevertebral soft tissue swelling is seen. XR/XR cervical spine 4V IMPRESSION: 1. There is well-maintained alignment status-post C3-C4 through C5-C6 anterior fusions and discectomies. No hardware failure or loosening is seen. 2. There is no instability with flexion or extension. 3. There is moderately severe degenerative disc disease at C2-C3, and marked degenerative disc disease seen at C6-C7 and C7-T1. 4. There is multi-level cervical spondylosis. Dictated By: Richard Scott MD Signed By: <Electronically signed by Richard Scott MD in OV> 05/29/232037 DD/ 1450 TD/TT: Psychological Operations Specialist: ANA ALEJO barium swallow modified Reviewed date:07/01/2023 05:31:24 PM Interpretation:Abnormal Performing Lab: Notes/Report: [address] [address] Fluoroscopy Report Signed Patient: Ying Denton MR#: [id number] : 1960 Acct:[id number] Age/Sex: 63 / F ADM Date: 06/30/23 Loc: HO.XRAY Attending Dr: Gustavo Suarez DO Ordering Physician: Gustavo Suarez DO Date of Service: 06/30/23 Procedure(s): MELO barium swallow modified Accession Number(s): [id number] cc: Gustavo Suarez DO EXAMINATION: Modified Barium Swallow CLINICAL INFORMATION: Dysphagia COMPARISON: None TECHNIQUE: Modified barium swallow was performed under lateral fluoroscopy with patient in standing position. Different consistency of barium was administered by the speech therapist. FINDINGS: Patient is status post anterior cervical fusion of C3-C6 with associated ventral plate, screws, and disc grafts. No hardware abnormality or loosening on this static image. Moderate disc degeneration at C2-C3. 2 mm ventral slip of C2 on C3, and C3 on C4. There appears to be bony fusion through the disc spaces of C3-C6. Patient is edentulous. No laryngeal penetration or aspiration was seen during this examination. FLUOROSCOPY TIME: 1 minute 10 seconds Number of Spot Images: 1. DOSE AREA PRODUCT: 411 uGy-m2 (microgray-meter squared) FL/FL barium swallow modified IMPRESSION: Status post anterior cervical fusion C3-C6 without obvious complication. Degenerative spondylosis of the remaining cervical spine. No evidence of laryngeal penetration or aspiration during this examination. Refer to the speech therapy report for further clarification This procedure was performed by Tariq Antonio PA-C, and supervised by Dr. Bains Dictated By: Tariq Antonio Signed By: <Electronically signed by Tariq Antonio in OV> 07/01/23 1719 <Electronically signed by Adama Bains MD in OV> 07/01/23 1723 DD/ 1425 TD/TT: Psychological Operations Specialist: Complete Blood Count Auto Di ff Reviewed date:07/01/2023 02:24:05 PM Interpretation:Abnormal Performing Lab:[facility], [address] [place] [phone] Notes/Report: White Blood Count 3.6 4.8-10.8 X10*3/uL Red Blood Count 4.45 4.20-5.50 X10*6/uL Hemoglobin 13.7 12.0-16.0 g/dl Hematocrit 41.8 37.0-47.0 % Mean Corpuscular Volume 93.9 80.0-98.0 fL Mean Corpuscular Hemoglobin 30.8 27.0-33.0 pg Mean Corpuscular HGB Conc 32.8 31.0-35.0 g/dl Red Cell Distribution Width 13.5 11.0-16.0 % Platelet Count 292 160-400 X10*3/uL Mean Platelet Volume 10.3 9.4-12.3 fL Neutrophils Percent Auto 51.1 45-73 % Imm Gran Pct Auto 0.3 0.0-0.4 % Lymphocytes Percent Auto 38.1 20-40 % Monocytes Percent Auto 8.3 2-11 % Eosinophils Percent Auto 1.9 0-4 % Basophils Percent Auto 0.3 0-2 % NRBC Pct Auto 0.0 0.0-0.2 /100WBC Neutrophils Absolute Auto 1.9 2.0-8.3 x10*3/u L Imm Gran Abs Auto 0.01 0.00-0.03 X10*3/uL Lymphocytes Absolute Auto 1.4 1.2-4.9 X10*3/u L Monocytes Absolute Auto 0.3 0.1-1.2 X10*3/uL Eosinophils Absolute Auto 0.1 0.0-0.4 X10*3/u L Basophils Absolute Auto 0.0 0.0-0.2 X10*3/uL NRBC Abs Auto 0.000 0.0-0.012 X10*3/uL Comprehensive Locke. Panel Fa Reviewed date:07/01/2023 02:24:05 PM Interpretation:Normal Performing Lab:[facility], [address] [place] [phone] Notes/Report: Sodium 141 135-145 mmol/L Potassium 4.1 3.3-5.1 mmol/L Chloride 107 96-108 mmol/L Carbon Dioxide 27 22-29 mmol/L Anion Gap 11 12-20 Blood Urea Nitrogen 10 9-16 mg/dL Creatinine 0.72 0.5-1.4 mg/dL Estimated Glomerular Filt Rate > 60 NOTE: For -[place] individuals, multiply the result by 1.210. Chronic Kidney Disease: Estimated GFR < 60 mL/min/1.73m2 Severe Kidney Disease: Estimated GFR < 15 mL/min/1.73m2 Glucose Fasting 85 60-99 mg/dL Calcium 9.6 8.4-10.2 mg/dL Bilirubin Total 0.7 0.0-1.0 mg/dL Aspartate Amino Transferase 25 5-31 U/L Alanine Aminotransferase 14 0-31 U/L Total Protein 7.8 6.5-8.0 g/dL Albumin Level 4.5 3.5-5.0 g/dL Alkaline Phosphatase 70 39-117 U/L Lipid Panel Reviewed date:07/01/2023 02:24:05 PM Interpretation:Abnormal Performing Lab:[facility], [address] [place] [phone] Notes/Report: Triglycerides 110 <150 mg/dL Desirable Triglyceride: less than 150 mg/dL Borderline High Triglyceride 150-199 mg/dL High Triglyceride: 200-499 mg/dL Very High Triglyceride: greater than or equal to 5OO mg/dL Cholesterol 246 <200 mg/dL Desirable Cholesterol: less than 200 mg/dL Borderline High Cholesterol: 200-239 mg/dL High Cholesterol: greater than 239 mg/dL LDL Cholesterol Calculated 147 <100 mg/dL Desirable LDL: less than 100 mg/dL Near Optimal/Above Optimal LDL: 110-129 mg/dL Borderline High LDL: 130-159 mg/dL High LDL: 160-189 mg/dL Very High LDL: greater than or equal to 190 mg/dL HDL Cholesterol 77 >40 mg/dL Desirable HDL: greater than 40 mg/dL Note: This HDL assay may give artificially low results in patients with liver disease. Thyroid Stimulating Hormone Reviewed date:07/01/2023 02:24:05 PM Interpretation:Normal Performing Lab:[facility], [address] [place] [phone] Notes/Report: Thyroid Stimulating Hormone 0.50 0.32-4.0 uIU/ mL TSH 3rd Generation ([facility]) Complete Blood Count Auto Di ff Reviewed date:07/17/2023 04:17:23 PM Interpretation:Abnormal Performing Lab:[facility], [address] [place] [phone] Notes/Report: White Blood Count 5.0 4.8-10.8 X10*3/uL Red Blood Count 3.92 4.20-5.50 X10*6/uL Hemoglobin 12.1 12.0-16.0 g/dl Hematocrit 34.9 37.0-47.0 % Mean Corpuscular Volume 89.0 80.0-98.0 fL Mean Corpuscular Hemoglobin 30.9 27.0-33.0 pg Mean Corpuscular HGB Conc 34.7 31.0-35.0 g/dl Red Cell Distribution Width 13.4 11.0-16.0 % Platelet Count 268 160-400 X10*3/uL Mean Platelet Volume 9.6 9.4-12.3 fL Neutrophils Percent Auto 47.1 45-73 % Imm Gran Pct Auto 0.2 0.0-0.4 % Lymphocytes Percent Auto 40.6 20-40 % Monocytes Percent Auto 10.3 2-11 % Eosinophils Percent Auto 1.4 0-4 % Basophils Percent Auto 0.4 0-2 % NRBC Pct Auto 0.0 0.0-0.2 /100WBC Neutrophils Absolute Auto 2.3 2.0-8.3 x10*3/u L Imm Gran Abs Auto 0.01 0.00-0.03 X10*3/uL Lymphocytes Absolute Auto 2.0 1.2-4.9 X10*3/u L Monocytes Absolute Auto 0.5 0.1-1.2 X10*3/uL Eosinophils Absolute Auto 0.1 0.0-0.4 X10*3/u L Basophils Absolute Auto 0.0 0.0-0.2 X10*3/uL NRBC Abs Auto 0.000 0.0-0.012 X10*3/uL Comprehensive Met. Panel Reviewed date:07/17/2023 04:17:23 PM Interpretation:Normal Performing Lab:[facility], [address] [place] [phone] Notes/Report: Sodium 142 135-145 mmol/L Potassium 3.6 3.3-5.1 mmol/L Chloride 109 96-108 mmol/L Carbon Dioxide 25 22-29 mmol/L Anion Gap 12 12-20 Blood Urea Nitrogen 12 9-16 mg/dL Creatinine 0.63 0.5-1.4 mg/dL Creatinine Clr Calc Pharmacy 75.6 Provided height and weight: 160.02 cm, 62.5 kg. eGFR (calculated from the MDRD study equation) and eCrCl (calculated from the Cockcroft-Gault equation) are based on different parameters and may not yield comparable results. If eCrCl result is absurd, please check patient's height/weight. Estimated Glomerular Filt Rate > 60 NOTE: For -[place] individuals, multiply the result by 1.210. Chronic Kidney Disease: Estimated GFR < 60 mL/min/1.73m2 Severe Kidney Disease: Estimated GFR < 15 mL/min/1.73m2 Glucose Random 93 60-115 mg/dL Calcium 9.4 8.4-10.2 mg/dL Bilirubin Total 0.5 0.0-1.0 mg/dL Aspartate Amino Transferase 22 5-31 U/L Alanine Aminotransferase 12 0-31 U/L Total Protein 7.1 6.5-8.0 g/dL Albumin Level 4.2 3.5-5.0 g/dL Alkaline Phosphatase 63 39-117 U/L Lipase Reviewed date:07/17/2023 04:17:23 PM Interpretation:Normal Performing Lab:[facility], [address] [place] [phone] Notes/Report: Lipase 19 8-78 U/L UA CC w/rflx Micro + Cult Reviewed date:07/17/2023 04:17:23 PM Interpretation:Negative Performing Lab:[facility], [address] [place] [phone] Notes/Report: [id number] Urine, Clean Catch Color Urine Yellow Appearance Urine Clear PH 7.0 5.0-9.0 Glucose Urine UA Negative Negative mg/dL Urine Blood Negative Negative Specific [place] - Urine 1.010 1.005-1.025 Urine Protein Negative Neg-Trace mg/dL Urine Ketones Negative Negative mg/dL Nitrite Urine Negative Negative Leukocyte Esterase Urine Negative Negative CT sinus wo con Reviewed date:09/17/2023 05:59:59 PM Interpretation:Abnormal Performing Lab: Notes/Report: [address] [address] [address] Scan Report Signed Patient: Ying Denton MR#: [id number] : 1960 Acct:[id number] Age/Sex: 63 / F ADM Date: 08/29/23 Loc: HO.CT Attending Dr: Salvador Jovel Ordering Physician: Salvador Jovel Date of Service: 08/29/23 Procedure(s): CT sinus wo IV con Accession Number(s): [id number] cc: Gustavo Suarez DO; Salvador Jovel CT SINUS WITHOUT CONTRAST HISTORY: Sinonasal polyps, deviated septum TECHNIQUE: CT images of the paranasal sinuses were acquired without contrast. This CT examination was performed using dose optimization techniques as appropriate, variously including the following: *Automated exposure control *Adjustment of mA and/or kV according to patient size (this includes techniques or standardized protocols for targeted exams where dose is matched to indication/reason for exam; i.e. extremities or head) *Use of iterative reconstruction technique DLP: 80.12 mGy-cm COMPARISON: Correlation is made with CT head 12/14/2022 FINDINGS: NASAL CAVITY: There is shallow leftward deviation of the anterior superior nasal septum. The cribriform plate appears intact. Relatively symmetric lateral lamellae and fovea ethmoidalis. FRONTAL SINUS: Right: Trace mucosal thickening inferiorly. The outflow tract is patent. Left: Trace mucosal thickening inferiorly. The outflow tract is patent. ETHMOID AIR CELLS: Right: Essentially clear. Left: Essentially clear. SPHENOID SINUS: Right: Trace mucosal thickening near the ostium which may be occluded. Left: Trace mucosal thickening near the ostium which may be occluded. MAXILLARY SINUS: Right: Essentially clear. The outflow tract is patent. Left: Essentially clear. The outflow tract is patent. OTHER: Intracranial atherosclerotic calcification. Otherwise, the intracranial structures are unremarkable on these low mAs images. Sclerotic, opacified right mastoid air cells. Absent maxillary dentition. CT/CT sinus wo IV con IMPRESSION: Essentially clear paranasal sinuses. No air-fluid levels to indicate acute sinusitis. Sclerotic, opacified right mastoid air cells. Dictated By: Julius Oliva MD Signed By: <Electronically signed by Julius Oliva MD in OV> 09/16/231951 DD/ 1 TD/TT: Psychological Operations Specialist: Free T4 (Free Thyroxine) Reviewed date:11/27/2023 05:33:13 PM Interpretation:Normal Performing Lab:[facility], [address] [place] [phone] Notes/Report: Free T4 (Free Thyroxine) 0.94 0.71-1.85 ng/dL Complete Blood Count Auto Di ff Reviewed date:11/27/2023 05:33:37 PM Interpretation:Abnormal Performing Lab:[facility], [address] [place] [phone] Notes/Report: White Blood Count 4.0 4.8-10.8 X10*3/uL Red Blood Count 4.14 4.20-5.50 X10*6/uL Hemoglobin 13.1 12.0-16.0 g/dl Hematocrit 39.7 37.0-47.0 % Mean Corpuscular Volume 95.9 80.0-98.0 fL Mean Corpuscular Hemoglobin 31.6 27.0-33.0 pg Mean Corpuscular HGB Conc 33.0 31.0-35.0 g/dl Red Cell Distribution Width 13.3 11.0-16.0 % Platelet Count 266 160-400 X10*3/uL Mean Platelet Volume 10.5 9.4-12.3 fL Neutrophils Percent Auto 52.5 45-73 % Imm Gran Pct Auto 0.2 0.0-0.4 % Lymphocytes Percent Auto 34.8 20-40 % Monocytes Percent Auto 9.5 2-11 % Eosinophils Percent Auto 2.5 0-4 % Basophils Percent Auto 0.5 0-2 % NRBC Pct Auto 0.0 0.0-0.2 /100WBC Neutrophils Absolute Auto 2.1 2.0-8.3 x10*3/u L Imm Gran Abs Auto 0.01 0.00-0.03 X10*3/uL Lymphocytes Absolute Auto 1.4 1.2-4.9 X10*3/u L Monocytes Absolute Auto 0.4 0.1-1.2 X10*3/uL Eosinophils Absolute Auto 0.1 0.0-0.4 X10*3/u L Basophils Absolute Auto 0.0 0.0-0.2 X10*3/uL NRBC Abs Auto 0.000 0.0-0.012 X10*3/uL Comprehensive Locke. Panel Fa st Reviewed date:11/27/2023 05:33:13 PM Interpretation:Normal Performing Lab:[facility], [address] [place] [phone] Notes/Report: Sodium 142 135-145 mmol/L Potassium 4.8 3.3-5.1 mmol/L Chloride 106 96-108 mmol/L Carbon Dioxide 28 22-29 mmol/L Anion Gap 13 12-20 Blood Urea Nitrogen 13 9-16 mg/dL Creatinine 0.78 0.5-1.4 mg/dL Estimated Glomerular Filt Rate > 60 NOTE: For -[place] individuals, multiply the result by 1.210. Chronic Kidney Disease: Estimated GFR < 60 mL/min/1.73m2 Severe Kidney Disease: Estimated GFR < 15 mL/min/1.73m2 Glucose Fasting 85 60-99 mg/dL Calcium 9.2 8.4-10.2 mg/dL Bilirubin Total 0.8 0.0-1.0 mg/dL Aspartate Amino Transferase 23 5-31 U/L Alanine Aminotransferase 12 0-31 U/L Total Protein 7.1 6.5-8.0 g/dL Albumin Level 4.3 3.5-5.0 g/dL Alkaline Phosphatase 66 39-117 U/L Lipid Panel Reviewed date:11/27/2023 05:33:13 PM Interpretation:Normal Performing Lab:[facility], [address] [place] [phone] Notes/Report: Triglycerides 141 <150 mg/dL Desirable Triglyceride: less than 150 mg/dL Borderline High Triglyceride 150-199 mg/dL High Triglyceride: 200-499 mg/dL Very High Triglyceride: greater than or equal to 5OO mg/dL Cholesterol 212 <200 mg/dL Desirable Cholesterol: less than 200 mg/dL Borderline High Cholesterol: 200-239 mg/dL High Cholesterol: greater than 239 mg/dL LDL Cholesterol Calculated 121 <100 mg/dL Desirable LDL: less than 100 mg/dL Near Optimal/Above Optimal LDL: 110-129 mg/dL Borderline High LDL: 130-159 mg/dL High LDL: 160-189 mg/dL Very High LDL: greater than or equal to 190 mg/dL HDL Cholesterol 63 >40 mg/dL Desirable HDL: greater than 40 mg/dL Note: This HDL assay may give artificially low results in patients with liver disease. Vitamin D 25-OH Total Reviewed date:11/27/2023 05:33:13 PM Interpretation:Normal Performing Lab:[facility], [address] [place] [phone] Notes/Report: Vitamin D 25-OH Total 55.9 >30 ng/mL Health Based Reference Values* < 20 ng/mL Deficient 20-30 ng/mL Insufficient > 30 ng/mL Sufficient *Marino OLVERA. N Engl J Med. 2007;357:266-280 Care must be taken in interpreting Vitamin D results from different laboratories and methodologies. Published data demonstrated that results from patients undergoing hemodialysis may show a negative bias when tested with various automated 25-OH vitamin D assays when compared to LC-MS/MS. When testing samples from patients whose predominant form of Vitamin D is Vitamin D2, such as patients receiving Vitamin D2 supplementation, results that are subtherapeutic should be confirmed with another method such as LC-MS/MS. Thyroid Stimulating Hormone Reviewed date:11/27/2023 05:35:27 PM Interpretation:Abnormal Performing Lab:[facility], [address] [place] [phone] Notes/Report: Thyroid Stimulating Hormone 0.19 0.32-4.0 uIU/ mL TSH 3rd Generation ([facility]) Triiodothyronine T3 Free Reviewed date:11/29/2023 11:45:49 AM Interpretation:Normal Performing Lab:[facility], [address] [place] [phone] Notes/Report: Triiodothyronine T3 Free 3.5 2.3-4.2 pg/mL THIS TEST WAS PERFORMED AT: [facility] [address] [place] [phone] AKSHAT PAINTER MD Liver Panel Reviewed date:12/18/2023 06:56:21 PM Interpretation:Normal Performing Lab:[facility], [address] [place] [phone] Notes/Report: Bilirubin Total 0.6 0.0-1.0 mg/dL Bilirubin Direct 0.2 0.0-0.5 mg/dL Aspartate Amino Transferase 22 5-31 U/L Alanine Aminotransferase 12 0-31 U/L Total Protein 7.0 6.5-8.0 g/dL Albumin Level 4.2 3.5-5.0 g/dL Alkaline Phosphatase 62 39-117 U/L Basic Metabolic Panel Reviewed date:12/18/2023 06:56:21 PM Interpretation:Normal Performing Lab:[facility], [address] [place] [phone] Notes/Report: Sodium 139 135-145 mmol/L Potassium 4.3 3.3-5.1 mmol/L Chloride 107 96-108 mmol/L Carbon Dioxide 27 22-29 mmol/L Anion Gap 9 12-20 Blood Urea Nitrogen 10 9-16 mg/dL Creatinine 0.69 0.5-1.4 mg/dL Estimated Glomerular Filt Rate > 60 NOTE: For -[place] individuals, multiply the result by 1.210. Chronic Kidney Disease: Estimated GFR < 60 mL/min/1.73m2 Severe Kidney Disease: Estimated GFR < 15 mL/min/1.73m2 Glucose Random 85 60-115 mg/dL Calcium 8.9 8.4-10.2 mg/dL C Reactive Protein Reviewed date:12/18/2023 06:56:21 PM Interpretation:Normal Performing Lab:[facility], [address] [place] [phone] Notes/Report: C Reactive Protein < 0.10 < or = 0.50 mg/dL T4 Thyroxine Reviewed date:12/18/2023 06:56:21 PM Interpretation:Normal Performing Lab:[facility], [address] [place] [phone] Notes/Report: T4 Thyroxine 6.7 4.5-12.0 ug/dL Complete Blood Count Auto Di ff Reviewed date:12/18/2023 02:06:58 PM Interpretation:Abnormal Performing Lab:[facility], [address] [place] [phone] Notes/Report: White Blood Count 4.2 4.8-10.8 X10*3/uL Red Blood Count 4.11 4.20-5.50 X10*6/uL Hemoglobin 13.0 12.0-16.0 g/dl Hematocrit 38.5 37.0-47.0 % Mean Corpuscular Volume 93.7 80.0-98.0 fL Mean Corpuscular Hemoglobin 31.6 27.0-33.0 pg Mean Corpuscular HGB Conc 33.8 31.0-35.0 g/dl Red Cell Distribution Width 13.5 11.0-16.0 % Platelet Count 265 160-400 X10*3/uL Mean Platelet Volume 9.9 9.4-12.3 fL Neutrophils Percent Auto 56.2 45-73 % Imm Gran Pct Auto 0.2 0.0-0.4 % Lymphocytes Percent Auto 32.9 20-40 % Monocytes Percent Auto 8.8 2-11 % Eosinophils Percent Auto 1.4 0-4 % Basophils Percent Auto 0.5 0-2 % NRBC Pct Auto 0.0 0.0-0.2 /100WBC Neutrophils Absolute Auto 2.4 2.0-8.3 x10*3/u L Imm Gran Abs Auto 0.01 0.00-0.03 X10*3/uL Lymphocytes Absolute Auto 1.4 1.2-4.9 X10*3/u L Monocytes Absolute Auto 0.4 0.1-1.2 X10*3/uL Eosinophils Absolute Auto 0.1 0.0-0.4 X10*3/u L Basophils Absolute Auto 0.0 0.0-0.2 X10*3/uL NRBC Abs Auto 0.000 0.0-0.012 X10*3/uL Erythrocyte Sedimentation Ra te Reviewed date:12/18/2023 02:06:40 PM Interpretation:Normal Performing Lab:[facility], [address] [place] [phone] Notes/Report: Erythrocyte Sedimentation Rate 6 0-20 MM/HR Patients with polycythemia and many hemoglobin abnormalities may have depressed sed rates whereas patients with anemia may have elevated sed rates. Thyroid Stimulating Hormone Reviewed date:12/18/2023 06:56:21 PM Interpretation:Normal Performing Lab:[facility], [address] [place] [phone] Notes/Report: Thyroid Stimulating Hormone 0.45 0.32-4.0 uIU/ mL TSH 3rd Generation ([facility]) Drug Screen Urine Reviewed date:03/08/2024 01:00:34 PM Interpretation:Negative Performing Lab:[facility], [address] [place] [phone] Notes/Report: Opiate Screen Urine Not Detected Not Detect Opiate cut-off is 300 ng/mL. Positive results are unconfirmed and should not be used for non-medical purposes. Barbiturates, Urine Not Detected Not Detect Barbiturate cut-off is 200 ng/mL. Positive results are unconfirmed and should not be used for non-medical purposes. Phencyclidine Screen Urine Not Detected Not Detect Phencyclidine cut-off is 25 ng/mL. Positive results are unconfirmed and should not be used for non-medical purposes. Amphetamine Screen Urine Not Detected Not Detect Amphetamine cut-off is 1000 ng/mL. Positive results are unconfirmed and should not be used for non-medical purposes. Benzodiazepines Screen Urine Not Detected Not Detect Benzodiazepine cut-off is 200 ng/mL. Positive results are unconfirmed and should not be used for non-medical purposes. Cocaine Screen Urine Not Detected Not Detect Cocaine cut-off is 300 ng/mL. Positive results are unconfirmed and should not be used for non-medical purposes. Cannabinoid Screen Urine Not Detected Not Detect Cannabinoid cut-off is 50 ng/mL. Positive results are unconfirmed and should not be used for non-medical purposes. Methadone Screen, Urine Not Detected Not Detect ng/mL Methadone cut-off is 300 ng/mL. Positive results are unconfirmed and should not be used for non-medical purposes. Fentanyl, urine Not Detected Not Detect Fentanyl cut-off is 1 ng/mL. Positive results are unconfirmed and should not be used for non-medical purposes. Oxycodone Screen Urine Not Detected Not Detect ng/mL Oxycodone cut-off is 100 ng/mL. Positive results are unconfirmed and should not be used for non-medical purposes. Buprenorphine Scr Not Detected Not Detect ng/mL Buprenorphine cut-off is 5 ng/mL. Positive results are unconfirmed and should not be used for non-medical purposes. UA CC w/rflx Micro + Cult Reviewed date:03/08/2024 01:00:10 PM Interpretation:Negative Performing Lab:[facility], [address] [place] [phone] Notes/Report: 1027 Urine, Clean Catch Color Urine Yellow Appearance Urine Clear PH 8.0 5.0-9.0 Glucose Urine UA Negative Negative mg/dL Urine Blood Negative Negative Specific [place] - Urine 1.010 1.005-1.025 Urine Protein Negative Neg-Trace mg/dL Urine Ketones Negative Negative mg/dL Nitrite Urine Negative Negative Leukocyte Esterase Urine Negative Negative CT angio head neck stroke Reviewed date:03/08/2024 01:20:57 PM Interpretation:Abnormal Performing Lab: Notes/Report: [address] [address] [address] Scan Report Signed Patient: Ying Denton MR#: [id number] : 1960 Acct:[id number] Age/Sex: 64 / F ADM Date: 03/08/24 Loc: HO.ED Attending Dr: Ordering Physician: Char Rothman NP Date of Service: 03/08/24 Procedure(s): CT angio head neck stroke Accession Number(s): [id number] cc: Char Rothman NP EXAMINATION: CTA NECK WITH CONTRAST (STROKE) CTA BRAIN WITH CONTRAST (STROKE) CLINICAL INFORMATION: Suspect acute stroke. Assess for major vessel occlusion. Please call report. COMPARISON: December 14, 2022. TECHNIQUE: CTA of the head and neck was performed in the axial plane from the mediastinum to the skull vertex using 70 mL Omnipaque 350 intravenous contrast without reported immediate complications. Additional reformatted multiplanar images including maximum intensity projection MIP images are generated on the CT workstation. This CT examination was performed using dose optimization techniques as appropriate, variously including the following: *Automated exposure control *Adjustment of mA and/or kV according to patient size (this includes techniques or standardized protocols for targeted exams where dose is matched to indication/reason for exam; i.e. extremities or head) *Use of iterative reconstruction technique DLP: 1360 mGy-cm FINDINGS: The degree of stenosis determined by criteria similar to NASCET. Brain: No acute intracranial hemorrhage, mass effect, midline shift, hydrocephalus or herniation. Morejon-white matter differentiation is normal. Posterior cranial fossa contents demonstrated no acute intracranial hemorrhage or mass effect. No abnormal enhancement within the intra-axial or the extra-axial compartment of the cranium. Bony calvarium is intact. Skull base is intact. For pneumatization right mastoid with probably fluid levels in the right mastoid antrum. Chest CTA: No focal stenosis or intimal flap, thoracic aorta. Calcified plaques in the aortic arch and the origin of the left CCA. Neck CTA: Right CCA: Normal patency. No focal stenosis. No intimal flap. Right ICA: Normal patency. No focal stenosis. No intimal flap. Left CCA: Calcified plaques in the origin. No focal stenosis or intimal flap. Normal patency. Left ICA: Calcified plaques. Normal patency. No focal stenosis. No intimal flap. V1/V2 segments demonstrated no focal stenosis or intimal flap. Left vertebral artery is dominant. The vertebral arteries are orientating directly from the aortic arch. Ancillary findings: Heterogeneous nodular enlarged thyroid gland with multiple punctate calcifications and multifocal low-density nodules, the largest in the left thyroid lobe resulting in mild extrinsic compression upon the trachea. Multilevel cervical spondylosis. Status post ACDF C3 C6. Brain CTA: Anterior cerebral circulation: ICAs: Calcified plaques in the cavernous and supraclinoid segments both ICAs. No focal stenosis. No abrupt cut off. MCA's: No focal stenosis or abrupt cut off. Bifurcation/trifurcation demonstrated normal patency without vascular abnormality. ACAs: Hypoplastic right A1 segment. No focal stenosis or abrupt cut off. Normal patency. Anterior communicant artery is patent. Posterior communicating arteries are robust and patent, bilaterally. Posterior cerebral circulation: V3/V4 segments demonstrate normal patency without focal stenosis or intimal flap. Left vertebral artery is dominant. Posterior inferior cerebellar arteries are patent. Basilar artery is patent without focal stenosis or intimal flap. Superior cerebellar arteries are patent. art display maker: Hypoplastic/atrophic right P1 segment. Normal patency without abrupt cut off. CT/CT angio head neck stroke IMPRESSION: No main cerebral artery occlusion or embolus. No high degree stenosis or dissection in the vessels of the neck. origin right COLLECTIONS SPECIALIST. Concerning thyroid disease/multinodular goiter. This critical test result is communicated to: Emergency physician Dr. Char Rothman on March 08, 2024 at 11:10 AM. Electronically signed by: Roberto Pisano MD 03/08/2024 11:20 AM [facility] Dictated By: Roberto Max Signed By: <Electronically signed by Roberto Lawrence in OV> 03/08/24 1120 DD/ 1034 TD/TT: 03/08/24 1048 Psychological Operations Specialist: REASON FOR REFERRAL Reason Low TSH Level Diagnosis 1 Abnormal results of thyroid function studies (R94.6) Referral Organization Gustavo Barreto FACP Referring Provider First Name Gustavo Referring Provider Last Name Daniela Referring Provider Speciality Internal edicine Referred Provider Jono Holm Referred Provider Specialty Endocrinolog y General Notes Sonja Sheikh 11:11:24 AM EDT > ADDITIONAL RECORDS TO FOLLOW BY SEPARATE FAX., Sonja Sheikh 08/08/2023 11:11:45 AM EDT > referral faxed; patient notified., Carolin Berrios 08/12/2023 09:30:33 AM EDT > Referral refaxed to [phone]. Referral Priority Routine Reason Paroxysmal atrial fi brillation Diagnosis 1 Paroxysmal atrial fi brillation (I48.0) Referral Organization Gustavo Barreto FACP Referring Provider First Name Gustavo Referring Provider Kishore Name Daniela Referring Provider Speciality Internal M edicine Referred Provider Ziggy Ventura Referred Provider Specialty Cardiology General Notes Sonja Sheikh 02:31:49 PM EDT > Referral for transfer of care from [facility]., Sonja Sheikh 01/20/2024 02:58:25 PM EDT > referral faxed manually to ; patient will schedule this appointment.Agustina Donna 02/09/2024 01:34:27 PM EDT > Referral refaxed to Referral Priority Routine Referral Appointment Date 03/10/2024 Reason Extreme dyspnea with any exertion Diagnosis 1 Dyspnea, unspecified (R06.00) Referral Organization Gustavo Barreto FACGayla Referring Provider First Name Gustavo Referring Provider Last Name Daniela Referring Provider Speciality Internal M edicine Referred Provider Bhavik Gomez Referred Provider Specialty Pulmonary Di seases General Notes Sonja Sheikh 024 01:46:01 PM EST > PLEASE REVIEW FOR EXPEDITED APPOINTMENT. THANKS FOR YOUR HELP! Additional records to follow by separate fax., Sonja Sheikh 03/12/2024 02:03:40 PM EST > referral and records faxed; patient aware specialist's office will call to schedule appointment., Carolin Berrios 03/17/2024 08:56:33 AM EST > Spoke with Dr. Viera office and they are waiting for records from [facility] to book appointment. Referral Priority Routine MEDICATIONS Medication SIG (Take, Route, Frequency, Duration) Notes Start Date End Date Status Baclofen 20 MG 1 tablet Orally Thre e times a day Active Gabapentin 600 MG 2 tablets at bedtime Orally Once a day Active Valtrex 1 GM 1 tablet Orally Once a day Active Estradiol 0.075 MG/24HR 1 patch to skin Transdermal Once a week Active LaMICtal XR 200 MG 2 tablets Orally Onc e a day Active Nitroglycerin 0.[address] 1 tablet unde r the tongue every 5 minutes if needed for chest pain for up to 3 doses Sublingual Once a day Active Apixaban 5 MG 1 tablet Orally Twic e a day Active Ondansetron HCl 4 MG 1 tablet as needed Orally Once a day Active Omeprazole 20 MG TAKE 1 CAPSULE BY MO UTH TWICE DAILY for 90 Active tiZANidine HCl 2 MG 1 tablet as needed Orally Twice a day Active Ergocalciferol 1.25 MG (24098 UT) 1 capsule Orally Once a week Active LORazepam 2 MG 1 tablet at bedtime as needed Orally Once a day Active buPROPion HCl 75 MG 1 tablet Orally Twic e a day Active IMMUNIZATIONS Vaccine Route Administration Date Status Comme nts H1N1 Unknown 08/14/2009 Administered Influenza Quad IM Intramuscular 03/12/2016 Administered COVID-19 Pfizer BioNTech Unknown 09/14/2021 Administere d Shingrix Unknown 12/08/2017 Administered COVID-19 Pfizer BioNTech Unknown 12/13/2020 Administere d Influenza Unknown 02/16/2014 Refused Influenza Unknown 05/10/2015 Refused Influenza Quad Unknown 01/15/2017 Refused Influenza Unknown 01/19/2018 Refused Influenza Unknown 02/19/2019 Refused Influenza Unknown 04/01/2023 Refused SOCIAL HISTORY Tobacco Use: Social History Observation [...] ast year? No Points 0 Interpretation Negative PROBLEMS Problem Type ICD Code Onset Dates Problem Status W/U Status Risk SNOMED Code Notes Problem Bipolar disorder, current episode mixed, moderate (F31.62) Active confirmed 894779233 Problem Dystonia, unspecifie d (G24.9) Active confirmed Dystonia (32380070) Problem Unspecified visual l oss (H54.7) Active confirmed Visual difficulty (869195048) Problem Paroxysmal atrial fibrillation (I48.0) Active confirmed 053334197 Problem Precordial pain (R07.2) Active confirmed 29889425 Problem Epigastric pain (R10.13) Active confirmed 24793342 Problem Other lack of coordination (R27.8) Active confirmed Lack of coordination (915431501) Problem Restless leg syndrom e (G25.81) Active confirmed Restless legs syndrome (86271300) Problem Cervical radiculopat hy (M54.12) Active confirmed 39288939 Problem Ataxia (R27.0) Active confirmed Ataxia (46881587) Problem Hypercholesterolemia (E78.00) Active confirmed 48682118 Problem RLS (restless legs syndrome) (G25.81) Active confirmed 18291129 Problem Mixed stress and urg e urinary incontinence (N39.46) Active confirmed 328379750 Problem Thyromegaly (E01.0) Active confirmed 14 338259 Problem Coronary artery anom yi (Q24.5) Active confirmed 36025470 Problem Coronary artery spas m (I20.1) Active confirmed 57630410 Problem Postprandial vomitin g (R11.10) Active confirmed 479925196 Problem TIA (transient ische taylor attack) (G45.9) Active confirmed 821818057 VITAL SIGNS Temperature 97.6 degrees Fahrenheit 06/20/2023 Blood pressure diastolic 56 mm Hg 03/24/2024 Height 63 in 03/24/2024 Blood pressure systolic 102 mm Hg 03/24/2024 Weight 119 lbs 03/24/2024 BMI 21.08 kg/m2 03/24/2024 Encounters Encounter Location Date Provider Diagnosis Gustavo Suarez DO, [address] [id number] 07/02/2023 Gustavo Suarez DO, [address] [id number] 03/24/2024 Gustavo Suarez Coronary artery spas m I20.1 ; Bipolar disorder, current episode mixed, moderate F31.62 ; Paroxysmal atrial fibrillation I48.0 ; Mixed stress and urge urinary incontinence N39.46 ; Cervical radiculopathy M54.12 and Epigastric pain R10.13 Gustavo Suarez DO, [address] [id number] 11/25/2023 Gustavo Suarez Paroxysmal atrial fibrillation I48.0 ; Coronary artery spasm I20.1 ; Epigastric pain R10.13 ; Thyromegaly E01.0 ; Bipolar disorder, current episode mixed, moderate F31.62 ; Muscle spasm M62.838 ; Mixed stress and urge urinary incontinence N39.46 and Cervical radiculopathy M54.12 Gustavo Suarez DO, [facility] [address] [place], [place] [id number] 07/04/2023 Gustavo Suarez DO, [address] [id number] 08/08/2023 Gustavo Suarez DO, [address] [id number] 08/12/2023 Gustavo Suarez DO, [address] [id number] 10/21/2023 Gustavo Suarez DO, [address] [id number] 12/10/2023 Gustavo Suarez DO, [address] [id number] 12/17/2023 Gustavo Suarez Weight loss, uninten tional R63.4 Gustavo Suarez DO, [address] [id number] 01/20/2024 Gustavo Suarez DO, [address] [id number] 02/06/2024 Gustavo Suarez DO, [address] [id number] 03/05/2024 Gustavo Suarez DO, [address] [id number] 03/08/2024 Gustavo Suarez DO, [address] [id number] 03/12/2024 Gustavo Suarez DO, [address] [id number] 06/20/2023 Gustavo Suarez Bipolar disorder, cu rrent episode mixed, moderate F31.62 ; Mixed stress and urge urinary incontinence N39.46 ; Cervical radiculopathy M54.12 ; Coronary artery spasm I20.1 ; Paroxysmal atrial fibrillation I48.0 and Muscle spasm M62.838 Gustavo Suarez DO, [address] [id number] 09/19/2023 Gustavo Suarez Paroxysmal atrial fibrillation I48.0 ; Bipolar disorder, current episode mixed, moderate F31.62 ; Hypercholesterolemia E78.00 ; Coronary artery spasm I20.1 ; Muscle spasm M62.838 ; Mixed stress and urge urinary incontinence N39.46 and Cervical radiculopathy M54.12 Gustavo Suarez DO, [address] [id number] 07/14/2023 Gustavo Suarez ASSESSMENTS Encounter Date Diagnosis Assessment Notes Treatment Notes Treatment Clinical Notes 03/24/2024 Bipolar disorder, cu rrent episode mixed, moderate (ICD-10 - F31.62) 03/24/2024 Coronary artery spas m (ICD-10 - I20.1) Follow up with Cardiology 11/25/2023 Paroxysmal atrial fibrillation (ICD-10 - I48.0) 11/25/2023 Coronary artery spas m (ICD-10 - I20.1) 12/17/2023 Weight loss, unintentional (ICD-10 - R63.4) 06/20/2023 Bipolar disorder, cu rrent episode mixed, moderate (ICD-10 - F31.62) 06/20/2023 Mixed stress and urg e urinary incontinence (ICD-10 - N39.46) 09/19/2023 Bipolar disorder, cu rrent episode mixed, moderate (ICD-10 - F31.62) 09/19/2023 Paroxysmal atrial fibrillation (ICD-10 - I48.0) 03/24/2024 Paroxysmal atrial fibrillation (ICD-10 - I48.0) Follow up with Cardiology 11/25/2023 Epigastric pain (ICD -10 - R10.13) 06/20/2023 Cervical radiculopat hy (ICD-10 - M54.12) 09/19/2023 Hypercholesterolemia (ICD-10 - E78.00) Low cholesterol diet 03/24/2024 Mixed stress and urg e urinary incontinence (ICD-10 - N39.46) 11/25/2023 Thyromegaly (ICD-10 - E01.0) 06/20/2023 Coronary artery spas m (ICD-10 - I20.1) 09/19/2023 Coronary artery spas m (ICD-10 - I20.1) 03/24/2024 Cervical radiculopat hy (ICD-10 - M54.12) 11/25/2023 Bipolar disorder, cu rrent episode mixed, moderate (ICD-10 - F31.62) 06/20/2023 Paroxysmal atrial fibrillation (ICD-10 - I48.0) 09/19/2023 Muscle spasm (ICD-10 - M62.838) 03/24/2024 Epigastric pain (ICD -10 - R10.13) 11/25/2023 Muscle spasm (ICD-10 - M62.838) 06/20/2023 Muscle spasm (ICD-10 - M62.838) 09/19/2023 Mixed stress and urg e urinary incontinence (ICD-10 - N39.46) 11/25/2023 Mixed stress and urg e urinary incontinence (ICD-10 - N39.46) 09/19/2023 Cervical radiculopat hy (ICD-10 - M54.12) 11/25/2023 Cervical radiculopat hy (ICD-10 - M54.12) 06/20/2023 Other Continue Omeprazole, 20 mg daily PLAN OF TREATMENT Pending Test Test Name Order Date CT ABD & PELVIS WITH CONTRAST 12/17/2023 CT chest w con 12/17/2023 Insurance Providers Payer Name Payer Address Payer Phone Subscriber Number Group Number Insured Name Patient Relationship to Insured Coverage Start Date Coverage End Date [employer] [address] [place] [address] [id number] Ying Denton Self - patient is the insured MEDICARE [address] [place] [phone] [id number] Ying Denton Self - patient is the insured MEDICAL (GENERAL) HISTORY Medical History History ICD Code bipolar affective disorder fibrocystic breast disease eczema herpes simplex, recurrent tubular adenoma diverticulosis hemorrhoids Hair loss Ecchymosis Atypical chest pain cervical disc disease Cervical radiculopathy M54.12 Tremor restless leg syndrome Mixed stress and urge urinary incontinen ce N39.46 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
--- OUTSIDE RECORDS SUMMARY | 2024-05-18 17:11 | XMS_ITS ---
Author Organization Gustavo Suarez DO [facility] Address [address], [place] [id number] Care Team Providers Care Preschool Assistant Director Name Role Phone Gustavo Suarez Primary Care Provider REASON FOR VISIT Needs call back from office Encounters Encounter Location Date Provider Diagnosis Gustavo Suarez DO, FACP [address] [place] [id number] 03/12/2024 Gustavo Suarez PLAN OF TREATMENT No Information
--- OUTSIDE RECORDS SUMMARY | 2024-05-18 17:11 | XMS_ITS ---
Author Organization [facility] Address [address] [place] [address] Care Team Providers Care Publicity Director Name Role Phone Matt Guevara Primary Care Provider LEBRON Cordon [phone] REASON FOR VISIT Left 3 msgs, no reponse from pt Encounters Encounter Location Date Provider Diagnosis [address] [phone] 02/11/2023 LEBRON CALDWELL Plan Of Treatment No Information Progress Notes * Ghada DENTONOB:[birth year] (63 yo F)Acc No.[id number]:02/11/2023 Patient:?Ying Denton :1960???Age:63 Y???Sex:Female Address:[place] [address] * true * Date:? Generated for Printi aldair/Sierra/eTransmitting on:?05/18/2024 05:11 PM EST
--- OUTSIDE RECORDS SUMMARY | 2024-05-18 17:12 | XMS_ITS | Clinical Summary ---
Author Organization Unknown Care Team Providers Care Inside Plant Supervisor Name Role Phone BRIDGER ENCISO, ASHLEY Unavailable Unavailable SONNY PRECISION PRINTING WORKER, GABRIELLA Unavailable Unavailable LUCITA RN, FEI Unavailable Unavailable VON RONNY PRECISION PRINTING WORKER, BACILIO Unavailable Unavail able ESTHELA PT, NANCY Unavailable Unavailable DAGOBERTO RN, CHEL Unavailable Unavailable KALETINA PRECISION PRINTING WORKER, KI Unavailable Unavailab le Payers Payer Name Policy Type Policy Number Effective Date Expira tion Date ZZZ [employer] MEDICARE ADVANTAGE FFS [id number] MEDICARE - [place] - PDGM [id number] Problems Condition Name Condition Details Condition Category Status Onset Date Resolution Date Last Treatment Date Treating Clinician Comments MULTIPLE SCLEROSIS Active 05-05 00:00: 00 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 05-05 00:00: 00 ESSENTIAL (PRIMARY) HYPERTENSION Active 05-05 00:00: 00 BIPOLAR DISORDER, UNSPECIFIED Active 05-05 00:00: 00 SKILLED NURSING (CURRENT) USE OF ANTIBIOTICS Active 05-05 00:00: 00 OBSTRUCTIVE SLEEP APNEA (ADULT) (PEDIATRIC) Active 05-05 00:00: 00 PAROXYSMAL ATRIAL FIBRILLATION Active 05-05 00:00: 00 PRSNL HX OF TIA (TIA), AND CEREB INFRC W/O RESID DEFICITS Active 05-05 00:00: 00 HYPERLIPIDEM IA, UNSPECIFIED Active 05-05 00:00: 00 RESTLESS LEGS SYNDROME Active 05-05 00:00: 00 POLYOSTEOART HRITIS, UNSPECIFIED Active 05-05 00:00: 00 ANGINA PECTORIS WITH DOCUMENTED SPASM Active 05-05 00:00: 00 ANXIETY DISORDER, UNSPECIFIED Active 2021-05 0- 00:00: 00 HISTORY OF FALLING Active 2021-05 0 00:00: 00 FOOT DROP, RIGHT FOOT Active 2021-05 00:00: 00 ATTENTION-DE FICIT HYPERACTIVIT Y DISORDER, UNSPECIFIED TYPE Active 2021-05 00:00: 00 GASTRO-ESOPH AGEAL REFLUX DISEASE WITHOUT ESOPHAGITIS Active 2021-05 00:00: 00 DYSPHAGIA, OROPHARYNGEA L PHASE Active 2021-05 00:00: 00 ARTHRODESIS STATUS Active 2021-05 00:00: 00 ACQUIRED ABSENCE OF BOTH CERVIX AND UTERUS Active 2021-05 00:00: 00 ACQUIRED ABSENCE OF OTHER SPECIFIED PARTS OF DIGESTIVE TRACT Active 2021-05 00:00: 00 POLYNEUROPAT HY, UNSPECIFIED Active 2021-05 00:00: 00 Allergies, Adverse Reactions, Alerts Allergy Name Allergy Type Status Severity Reaction(s) Onset Date Inactive Date Treating Clinician Comments CODEINE SULFATES Propensity to adverse reactions Active 2021-05 16:16: 06 PERCOCET Propensity to adverse reactions Active 2021-05 16:16: 33 PENICILLIN AND DERIVATIVES Propensity to adverse reactions Active 2021-05 16:17: 30 Medications Ordered Medication Name Filled Medication Name Start Date Stop Date Current Medication? Ordering Clinician Indication Dosage Frequency Signature (SIG) Comments Components celecoxib 200 mg capsule 01-24 00:00: 00 Yes [id number] 1 capsule EVERY DAY 1 capsule EVERY DAY (route: oral) Med Classific ation: Analgesic , Anti-infl ammatory or Antipyret ic docusate sodium 100 mg capsule 01-24 00:00: 00 Yes [id number] 1 capsule TWICE DAILY 1 capsule TWICE DAILY (route: oral) Med Classific ation: Gastroint estinal Therapy Agents atorvastati n 20 mg tablet 01-10 00:00: 00 Yes [id number] 1 tablet DAILY 1 tablet DAILY (route: oral) Med Classific ation: Cardiovas cular Therapy Agents Eliquis 5 mg tablet 01-10 00:00: 00 02-04 23:59 :00 No [id number] Per instruc tions TWICE DAILY Per instructio ns TWICE DAILY (route: oral) Med Classific ation: Hematolog ical Agents gabapentin 600 mg tablet 01-10 00:00: 00 Yes [id number] Per instruc tions EVERY EVENING AND AT BEDTIME AT BEDTIME TWICE DAILY Per instructio ns EVERY EVENING AND AT BEDTIME AT BEDTIME TWICE DAILY (route: oral) Med Classific ation: Central Nervous System Agents isosorbide mononitrate ER 30 mg tablet,exte nded release 24 hr 01-10 00:00: 00 Yes [id number] Unavailable Per instruc tions EVERY DAY Per instructio ns EVERY DAY (route: oral) Med Classific ation: Cardiovas cular Therapy Agents lamotrigine ER 200 mg tablet,exte nded release 24 hr 01-10 00:00: 00 Yes [id number] 2 tablet DAILY 2 tablet DAILY (route: oral) Med Classific ation: Central Nervous System Agents lorazepam 2 mg tablet 01-10 00:00: 00 Yes [id number] Per instruc tions EVERY NIGHT AT BEDTIME Per instructio ns EVERY NIGHT AT BEDTIME (route: oral) Med Classific ation: Central Nervous System Agents methylpheni date 20 mg tablet 01-10 00:00: 00 Yes [id number] 1 tablet THREE TIMES DAILY 1 tablet THREE TIMES DAILY (route: oral) Med Classific ation: Central Nervous System Agents metoprolol tartrate 50 mg tablet 01-10 00:00: 00 Yes [id number] 1 tablet TWICE DAILY 1 tablet TWICE DAILY (route: oral) Med Classific ation: Cardiovas cular Therapy Agents nitroglycer in 0.4 mg sublingual tablet 01-10 00:00: 00 Yes [id number] Per instruc tions EVERY 5 MINS IF NEEDED Per instructio ns EVERY 5 MINS IF NEEDED (route: sublingual ) Med Classific ation: Cardiovas cular Therapy Agents omeprazole 20 mg capsule,del ayed release 01-10 00:00: 00 Yes [id number] Per instruc tions DAILY Per instructio ns DAILY (route: oral) Med Classific ation: Gastroint estinal Therapy Agents valacyclovi r 1 gram tablet 01-10 00:00: 00 Yes [id number] Unavailable 1 tablet DAILY 1 tablet DAILY (route: oral) Med Classific ation: Anti-Infe ctive Agents ergocalcife rol (vitamin D2) 1,250 mcg (50,000 unit) capsule 01-10 00:00: 00 Yes [id number] 1 capsule 1 TIME A WEEK 1 capsule 1 TIME A WEEK (route: oral) Med Classific ation: Electroly te Balance-N utritiona l Products Acetaminoph en Extra Strength 500 mg tablet 2021-05 0 00:00: 00 Yes [id number] 1 tablet EVERY 6 HOURS 1 tablet EVERY 6 HOURS (route: oral) Med Classific ation: Analgesic , Anti-infl ammatory or Antipyret ic baclofen 5 mg tablet 2021-05 0 00:00: 00 Yes [id number] 1 tablet 3 TIMES DAILY 1 tablet 3 TIMES DAILY (route: oral) Med Classific ation: Locomotor System Dilaudid 2 mg tablet 2021-05 00:00: 00 Yes [id number] 2 tablet EVERY 4 HOURS 2 tablet EVERY 4 HOURS (route: oral) Med Classific ation: Analgesic , Anti-infl ammatory or Antipyret ic Eliquis 2.5 mg tablet 2021-05 00:00: 00 02-16 23:59 :00 No [id number] 1 tablet 2 TIMES DAILY 1 tablet 2 TIMES DAILY (route: oral) Med Classific ation: Hematolog ical Agents Immunizations Ordered Immunization Name Filled Immunization Name Date Status Comments Refusal Reason COVID BOOSTER, COVID BOOSTER 2020-06-05 00:00:00 Vital Signs Vital Name Observation Time Observation Value Commen ts Temperature 2022-03-27 17:56:00.000 98 [degF] Temperature 2022-03-25 12:18:00.000 96.9 [degF] Temperature 2022-03-21 11:46:00.000 96.6 [degF] Temperature 2022-03-19 12:20:00.000 96.8 [degF] Temperature 2022-03-18 14:47:00.000 97.3 [degF] Temperature 2022-03-14 19:29:00.000 97.3 [degF] Temperature 2022-03-11 11:33:00.000 97.1 [degF] Temperature 2022-03-07 20:09:00.000 97.3 [degF] Temperature 2022-03-07 11:02:00.000 97.3 [degF] Temperature 2022-03-04 19:28:00.000 98.3 [degF] Temperature 2022-02-28 16:54:00.000 98 [degF] Temperature 2022-02-08 11:09:00.000 97.2 [degF] Temperature 2022-02-07 15:25:00.000 97.6 [degF] Temperature 2022-02-06 12:49:00.000 97.1 [degF] Temperature 2022-02-04 13:51:00.000 97.3 [degF] BMI (%) 2022-02-28 16:41:11.000 21 kg/m2 BMI (%) 2022-02-05 08:19:32.000 22 kg/m2 Height 2022-02-28 16:40:54.000 63 [in_us] Height 2022-02-04 13:51:00.000 63 [in_us] Pulse 2022-03-27 17:56:00.000 76 /min Pulse 2022-03-25 12:15:00.000 90 /min Pulse 2022-03-21 11:46:00.000 90 /min Pulse 2022-03-19 12:20:00.000 94 /min Pulse 2022-03-18 14:47:00.000 95 /min Pulse 2022-03-15 10:46:00.000 70 /min Pulse 2022-03-14 19:29:00.000 85 /min Pulse 2022-03-14 11:14:00.000 85 /min Pulse 2022-03-12 18:59:00.000 60 /min Pulse 2022-03-11 15:13:00.000 96 /min Pulse 2022-03-11 11:33:00.000 81 /min Pulse 2022-03-07 20:09:00.000 105 /min Pulse 2022-03-07 11:03:00.000 100 /min Pulse 2022-03-04 19:28:00.000 125 /min Pulse 2022-02-28 16:54:00.000 68 /min Pulse 2022-02-08 11:09:00.000 90 /min Pulse 2022-02-07 15:25:00.000 74 /min Pulse 2022-02-07 13:29:00.000 78 /min Pulse 2022-02-06 12:49:00.000 84 /min Pulse 2022-02-04 13:51:00.000 74 /min O2 Saturation (%) 2022-03-25 12:15:00.000 97 % O2 Saturation (%) 2022-03-21 11:46:00.000 98 % O2 Saturation (%) 2022-03-19 12:20:00.000 95 % O2 Saturation (%) 2022-03-18 14:47:00.000 98 % O2 Saturation (%) 2022-03-15 10:46:00.000 97 % O2 Saturation (%) 2022-03-14 19:29:00.000 98 % O2 Saturation (%) 2022-03-14 11:14:00.000 98 % O2 Saturation (%) 2022-03-12 18:59:00.000 98 % O2 Saturation (%) 2022-03-11 15:13:00.000 96 % O2 Saturation (%) 2022-03-11 11:33:00.000 98 % O2 Saturation (%) 2022-03-07 20:09:00.000 95 % O2 Saturation (%) 2022-03-07 11:02:00.000 100 % O2 Saturation (%) 2022-03-04 19:29:00.000 99 % O2 Saturation (%) 2022-02-28 16:54:00.000 97 % O2 Saturation (%) 2022-02-08 11:09:00.000 99 % O2 Saturation (%) 2022-02-07 13:29:00.000 97 % O2 Saturation (%) 2022-02-06 12:49:00.000 100 % O2 Saturation (%) 2022-02-04 13:51:00.000 95 % Respirations 2022-03-27 17:56:00.000 18 /min Respirations 2022-03-25 12:15:00.000 18 /min Respirations 2022-03-21 11:46:00.000 18 /min Respirations 2022-03-19 12:20:00.000 18 /min Respirations 2022-03-18 14:47:00.000 18 /min Respirations 2022-03-14 19:29:00.000 18 /min Respirations 2022-03-11 15:13:00.000 18 /min Respirations 2022-03-11 11:33:00.000 18 /min Respirations 2022-03-07 20:09:00.000 16 /min Respirations 2022-03-07 11:02:00.000 18 /min Respirations 2022-03-04 19:28:00.000 20 /min Respirations 2022-02-28 16:54:00.000 18 /min Respirations 2022-02-08 11:09:00.000 18 /min Respirations 2022-02-07 15:25:00.000 17 /min Respirations 2022-02-06 12:49:00.000 18 /min Respirations 2022-02-04 13:51:00.000 18 /min Weight (lbs) 2022-02-28 16:41:11.000 124 [lb_av] Weight (lbs) 2022-02-05 08:19:32.000 126 [lb_av] Systolic Blood Pressure 2022-03-27 17:56:00.000 120 mm [Hg] Systolic Blood Pressure 2022-03-25 12:15:00.000 116 mm [Hg] Systolic Blood Pressure 2022-03-21 11:46:00.000 116 mm [Hg] Systolic Blood Pressure 2022-03-19 12:20:00.000 120 mm [Hg] Systolic Blood Pressure 2022-03-18 14:47:00.000 118 mm [Hg] Systolic Blood Pressure 2022-03-14 19:29:00.000 106 mm [Hg] Systolic Blood Pressure 2022-03-14 11:14:00.000 108 mm [Hg] Systolic Blood Pressure 2022-03-12 19:00:00.000 108 mm [Hg] Systolic Blood Pressure 2022-03-11 11:33:00.000 118 mm [Hg] Systolic Blood Pressure 2022-03-07 20:09:00.000 116 mm [Hg] Systolic Blood Pressure 2022-03-07 11:02:00.000 116 mm [Hg] Systolic Blood Pressure 2022-03-04 19:28:00.000 106 mm [Hg] Systolic Blood Pressure 2022-02-28 16:54:00.000 102 mm [Hg] Systolic Blood Pressure 2022-02-08 11:09:00.000 122 mm [Hg] Systolic Blood Pressure 2022-02-07 15:25:00.000 102 mm [Hg] Systolic Blood Pressure 2022-02-07 13:29:00.000 108 mm [Hg] Systolic Blood Pressure 2022-02-06 12:49:00.000 120 mm [Hg] Diastolic Blood Pressure 2022-03-27 17:56:00.000 64 mm [Hg] Diastolic Blood Pressure 2022-03-25 12:15:00.000 68 mm [Hg] Diastolic Blood Pressure 2022-03-21 11:46:00.000 64 mm [Hg] Diastolic Blood Pressure 2022-03-19 12:20:00.000 70 mm [Hg] Diastolic Blood Pressure 2022-03-18 14:47:00.000 68 mm [Hg] Diastolic Blood Pressure 2022-03-14 19:29:00.000 60 mm [Hg] Diastolic Blood Pressure 2022-03-14 11:14:00.000 52 mm [Hg] Diastolic Blood Pressure 2022-03-12 19:00:00.000 64 mm [Hg] Diastolic Blood Pressure 2022-03-11 11:33:00.000 64 mm [Hg] Diastolic Blood Pressure 2022-03-07 20:09:00.000 62 mm [Hg] Diastolic Blood Pressure 2022-03-07 11:02:00.000 62 mm [Hg] Diastolic Blood Pressure 2022-03-04 19:28:00.000 60 mm [Hg] Diastolic Blood Pressure 2022-02-28 16:54:00.000 64 mm [Hg] Diastolic Blood Pressure 2022-02-08 11:09:00.000 69 mm [Hg] Diastolic Blood Pressure 2022-02-07 15:25:00.000 60 mm [Hg] Diastolic Blood Pressure 2022-02-07 13:29:00.000 66 mm [Hg] Diastolic Blood Pressure 2022-02-06 12:49:00.000 74 mm [Hg] Plan of Treatment Planned Activity Planned Date Details Comments Future Scheduled Test PHYSICAL T HERAPIST TO EVALUATE PATIENT SECONDARY TO FUNCTIONAL DEFICITS/SAFETY CONCERNS. [code = PHYSICAL THERAPIST TO EVALUATE PATIENT SECONDARY TO FUNCTIONAL DEFICITS/SAFETY CONCERNS.] Future Scheduled Test CLINICAL [facility] SOC RECENT HOSPITALIZATION/INPATIENT ADMISSION RELATED TO: PATIENT IS A 62-YEAR-OLD FEMALE STATUS POST ELECTIVE RIGHT TOTAL HIP ARTHROPLASTY 02/01/22 BY MD SPARKS OF [facility], [place] [facility] [place]. FOLLOWUP MD SPARKS APPOINTMENT 02/15/22 AT 10:15 AM. PATIENT WBAT RLE, R HIP PRECAUTIONS. PATIENT HAS AQUALCEL BANDAGE RIGHT HIP. PER ORTHO MD ORDERS AQUACELL BANDAGE MAY BE REMOVED BY [facility] 7 DAYS POST OP. PAST MEDICAL HISTORY: OA OF MULTIPLE JOINTS, R TKR MD SPARKS 04/2019, RIGHT FOOT INJURY, RECENT DIAGNOSIS OF MULTIPLE SCLEROSIS BUT CURRENTLY NOT TAKING ANY TREATMENT FOR MS (SYMPTOMS ARE MOSTLY SOME UPPER THIGH WEAKNESS AND WITH SOME BOWEL AND BLADDER INCONTINENCE), OBSTRUCTIVE SLEEP APNEA HOWEVER REPORTS NOT USING BIPAP IN HOME, PROXIMAL ATRIAL FIBRILLATION ON ELIQUIS, MULTIPLE TIAS, CORONARY SPASMS, EPISODE OF CHEST PAIN AND 08/2018, PATIENT STATES OVER 10 YEARS WAS HAVING INCREASED BRUISING WAS TOLD THAT HER PLATELETS DO NOT FUNCTIONAL NORMALLY, BIPOLAR DISORDER, NECK AND BACK PAIN, HYPERTENSION. PATIENT REPORTS SSI DISABILITY SINCE 1991 FOR PSYCHIATRIC ISSUES. PATIENT REPORTS MD RODRÍGUEZ IS PCP. NEW OR CHANGED MEDICATIONS PERTINENT TO THE PLAN OF CARE: NEW - HYDROMORPHONE 2 MG AND BACLOFEN 10 MG, ELLIQUIS CHANGED TO 2.5 MG TAB BID. PATIENT LIVING SITUATION/CAREGIVER STATUS: PATIENT LIVING WITH BOYFRIEND QAMAR IN SINGLE FAMILY HOME WITH A CAT, 1 THRESHOLD STEP, 3 STAIRS WITH RAIL TO NEGOTIATE, OFFICE ON 2ND FLOOR. 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 PATIENT REPORTS NO BOWEL MOVEMENT/BOWEL SOUNDS SINCE 01/31/22, REVIEWED CONSTIPATION MEASURES INCLUDING POLYETHYLENE GLYCOL 17 GM PACK RECOMMENDED WHEN DISCHARGED, NOT IN HOME. REVIEWED S/S DVT: PATIENT COMPLIANT WITH APIXABAN (ELLIQUIS) PRO BID, TO BE TAKEN 7 DAYS. CURRENTLY PATIENT REQUIRES SUPERVISION WITH SIT-->STAND TRANSFER AND VERBAL CUES TO MAINTAIN R THR PRECAUTIONS. PATIENT AMB 6' X 2 WITH SUPERVISION AND VERBAL CUES FOR WBAT RLE, AD SEQUENCING, PATIENT DEMO DECREASED RIGHT LE EXTENSION WITH STANCE PHASE AND DECREASE HIP FLEX WITH SWING DYNAMIC STAND = FAIR-. EDUCATED PATIENT ON EDEMA CONTROL, PAIN MANAGEMENT, ICING. PATIENT REPORTS TAKING 4 MG DILAUDID 30 MINUTES PRIOR TO THIS THERAPIST'S EVALUATION AND REPORTE [code = CLINICAL SUMMARY PHYSICAL THERAPY SOC RECENT HOSPITALIZATION/INPATIENT ADMISSION RELATED TO: PATIENT IS A 62-YEAR-OLD FEMALE STATUS POST ELECTIVE RIGHT TOTAL HIP ARTHROPLASTY 02/01/22 BY MD SPARKS OF [facility], [place] [facility] [place]. FOLLOWUP MD SPARKS APPOINTMENT 02/15/22 AT 10:15 AM. PATIENT WBAT RLE, R HIP PRECAUTIONS. PATIENT HAS AQUALCEL BANDAGE RIGHT HIP. PER ORTHO MD ORDERS AQUACELL BANDAGE MAY BE REMOVED BY [facility] 7 DAYS POST OP. PAST MEDICAL HISTORY: OA OF MULTIPLE JOINTS, R TKR MD SPARKS 04/2019, RIGHT FOOT INJURY, RECENT DIAGNOSIS OF MULTIPLE SCLEROSIS BUT CURRENTLY NOT TAKING ANY TREATMENT FOR MS (SYMPTOMS ARE MOSTLY SOME UPPER THIGH WEAKNESS AND WITH SOME BOWEL AND BLADDER INCONTINENCE), OBSTRUCTIVE SLEEP APNEA HOWEVER REPORTS NOT USING BIPAP IN HOME, PROXIMAL ATRIAL FIBRILLATION ON ELIQUIS, MULTIPLE TIAS, CORONARY SPASMS, EPISODE OF CHEST PAIN AND 08/2018, PATIENT STATES OVER 10 YEARS WAS HAVING INCREASED BRUISING WAS TOLD THAT HER PLATELETS DO NOT FUNCTIONAL NORMALLY, BIPOLAR DISORDER, NECK AND BACK PAIN, HYPERTENSION. PATIENT REPORTS SSI DISABILITY SINCE 1991 FOR PSYCHIATRIC ISSUES. PATIENT REPORTS MD RODRÍGUEZ IS PCP. NEW OR CHANGED MEDICATIONS PERTINENT TO THE PLAN OF CARE: NEW - HYDROMORPHONE 2 MG AND BACLOFEN 10 MG, ELLIQUIS CHANGED TO 2.5 MG TAB BID. PATIENT LIVING SITUATION/CAREGIVER STATUS: PATIENT LIVING WITH BOYFRIEND QAMAR IN SINGLE FAMILY HOME WITH A CAT, 1 THRESHOLD STEP, 3 STAIRS WITH RAIL TO NEGOTIATE, OFFICE ON 2ND FLOOR. 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 PATIENT REPORTS NO BOWEL MOVEMENT/BOWEL SOUNDS SINCE 01/31/22, REVIEWED CONSTIPATION MEASURES INCLUDING POLYETHYLENE GLYCOL 17 GM PACK RECOMMENDED WHEN DISCHARGED, NOT IN HOME. REVIEWED S/S DVT: PATIENT COMPLIANT WITH APIXABAN (ELLIQUIS) PRO BID, TO BE TAKEN 7 DAYS. CURRENTLY PATIENT REQUIRES SUPERVISION WITH SIT-->STAND TRANSFER AND VERBAL CUES TO MAINTAIN R THR PRECAUTIONS. PATIENT AMB 6' X 2 WITH SUPERVISION AND VERBAL CUES FOR WBAT RLE, AD SEQUENCING, PATIENT DEMO DECREASED RIGHT LE EXTENSION WITH STANCE PHASE AND DECREASE HIP FLEX WITH SWING DYNAMIC STAND = FAIR-. EDUCATED PATIENT ON EDEMA CONTROL, PAIN MANAGEMENT, ICING. PATIENT REPORTS TAKING 4 MG DILAUDID 30 MINUTES PRIOR TO THIS THERAPIST'S EVALUATION AND REPORTE] Future Scheduled Test PATIENT TO PARTICIPATE IN [facility] PRO[facility] [code = PATIENT TO PARTICIPATE IN [facility]] Future Scheduled Test PHYSICAL T HERAPIST TO ASSESS BEST PRACTICE INTERVENTIONS TO ASSIST PATIENTS TO IMPROVE OR STABILIZE MEDICAL STATUS AND PREVENT RE-HOSPITALIZATION. MEASURES INCLUDING REVIEW AND IDENTIFICATION OF CONCERNS FOR THE FOLLOWING AREAS: DEPRESSION, DRUG REGIMEN, ENVIRONMENTAL SAFETY ISSUES AND FALLS, PRESSURE ULCERS, PAIN, AND DISEASE MANAGEMENT. [code = PHYSICAL THERAPIST TO ASSESS BEST PRACTICE INTERVENTIONS TO ASSIST PATIENTS TO IMPROVE OR STABILIZE MEDICAL STATUS AND PREVENT RE-HOSPITALIZATION. MEASURES INCLUDING REVIEW AND IDENTIFICATION OF CONCERNS FOR THE FOLLOWING AREAS: DEPRESSION, DRUG REGIMEN, ENVIRONMENTAL SAFETY ISSUES AND FALLS, PRESSURE ULCERS, PAIN, AND DISEASE MANAGEMENT.] Future Scheduled Test PHYSICAL T HERAPY TO ESTABLISH /UPGRADE/DOWNGRADE THERAPEUTIC EXERCISE PROGRAM AND INSTRUCT PATIENT/CAREGIVER ON EXERCISE PRECAUTIONS WITH WRITTEN HOME PROGRAM. MAY INCLUDE PROM, AAROM, AROM, RROM APPROPRIATE TO IMPROVE FUNCTIONAL STRENGTH AND RANGE OF MOTION. [code = PHYSICAL THERAPY TO ESTABLISH /UPGRADE/DOWNGRADE THERAPEUTIC EXERCISE PROGRAM AND INSTRUCT PATIENT/CAREGIVER ON EXERCISE PRECAUTIONS WITH WRITTEN HOME PROGRAM. MAY INCLUDE PROM, AAROM, AROM, RROM APPROPRIATE TO IMPROVE FUNCTIONAL STRENGTH AND RANGE OF MOTION.] Future Scheduled Test PHYSICAL T HERAPY TO INSTRUCT PATIENT/CAREGIVER ON BED MOBILITY TECHNIQUES TO IMPROVE PATIENT MOBILITY AND POSITIONING TECHNIQUES IN ORDER TO INCREASE PATIENTS COMFORT AND DECREASE RISK OF SKIN BREAKDOWN. [code = PHYSICAL THERAPY TO INSTRUCT PATIENT/CAREGIVER ON BED MOBILITY TECHNIQUES TO IMPROVE PATIENT MOBILITY AND POSITIONING TECHNIQUES IN ORDER TO INCREASE PATIENTS COMFORT AND DECREASE RISK OF SKIN BREAKDOWN.] Future Scheduled Test PHYSICAL T HERAPY TO INSTRUCT PATIENT/CAREGIVER ON SAFE TRANSFER TECHNIQUES USING PROPER BODY MECHANICS AND EQUIPMENT. [code = PHYSICAL THERAPY TO INSTRUCT PATIENT/CAREGIVER ON SAFE TRANSFER TECHNIQUES USING PROPER BODY MECHANICS AND EQUIPMENT.] Future Scheduled Test PHYSICAL T HERAPY TO INSTRUCT PATIENT/CAREGIVER ON GAIT TRAINING TECHNIQUES USING APPROPRIATE ASSISTIVE DEVICE, PROPER BODY MECHANICS TO IMPROVE MOBILITY, AND PREVENT INJURY OF PATIENT AND/OR CAREGIVER. [code = PHYSICAL THERAPY TO INSTRUCT PATIENT/CAREGIVER ON GAIT TRAINING TECHNIQUES USING APPROPRIATE ASSISTIVE DEVICE, PROPER BODY MECHANICS TO IMPROVE MOBILITY, AND PREVENT INJURY OF PATIENT AND/OR CAREGIVER.] Future Scheduled Test PHYSICAL T HERAPY TO INSTRUCT PATIENT/CAREGIVER ON BALANCE AND BALANCE STRATEGIES TO IMPROVE SAFE MOBILITY AND REDUCE RISK FOR FALL AND INJURY INCLUDING PARTICIPATION IN [facility] BALANCE SPECIALTY PROGRAM [code = PHYSICAL THERAPY TO INSTRUCT PATIENT/CAREGIVER ON BALANCE AND BALANCE STRATEGIES TO IMPROVE SAFE MOBILITY AND REDUCE RISK FOR FALL AND INJURY INCLUDING PARTICIPATION IN [facility] BALANCE SPECIALTY PROGRAM] Future Scheduled Test PHYSICAL T HERAPY TO ASSESS AND RECOMMEND HOME SAFETY ADAPTATIONS AND EDUCATE PATIENT /CAREGIVER ON FALL PREVENTION STRATEGIES. [code = PHYSICAL THERAPY TO ASSESS AND RECOMMEND HOME SAFETY ADAPTATIONS AND EDUCATE PATIENT /CAREGIVER ON FALL PREVENTION STRATEGIES.] Future Scheduled Test PHYSICAL T HERAPY TO PROVIDE WOUND CARE AND/OR REMOVE AQUACELL 7 DAYS POST OP (OP DATE 02/01/22). [code = PHYSICAL THERAPY TO PROVIDE WOUND CARE AND/OR REMOVE AQUACELL 7 DAYS POST OP (OP DATE 02/01/22).] Future Scheduled Test PHYSICAL T HERAPY TO OBTAIN O2 SATS PRN VIA PULSE OXIMETER INDICATED FOR SHORTNESS OF BREATH, FATIGUE, WEAKNESS, ACTIVITY INTOLERANCE, AND/OR BASELINE MEASUREMENT FOR THERAPY TREATMENT. [code = PHYSICAL THERAPY TO OBTAIN O2 SATS PRN VIA PULSE OXIMETER INDICATED FOR SHORTNESS OF BREATH, FATIGUE, WEAKNESS, ACTIVITY INTOLERANCE, AND/OR BASELINE MEASUREMENT FOR THERAPY TREATMENT.] Future Scheduled Test PHYSICAL T HERAPY FOR ASSESSMENT, TEACHING AND PROPER WOUND MANAGEMENT FOR THE REMOVAL AND APPLICATION OF DRESSINGS FOLLOWING PHYSICIAN ORDERS. REMOVE ACQUACELL BANDAGE 7 DAYS POST OP (OP DATE 02/01/22). [code = PHYSICAL THERAPY FOR ASSESSMENT, TEACHING AND PROPER WOUND MANAGEMENT FOR THE REMOVAL AND APPLICATION OF DRESSINGS FOLLOWING PHYSICIAN ORDERS. REMOVE ACQUACELL BANDAGE 7 DAYS POST OP (OP DATE 02/01/22).] Future Scheduled Test PHYSICAL T HERAPY FOR OBSERVATION AND ASSESSMENT OF PAIN, EFFECTIVENESS OF PAIN MANAGEMENT REGIMEN AND SKILLED TEACHING RELATED TO PAIN MANAGEMENT. THERAPIST TO REPORT INCREASED PAIN LEVEL TO PHYSICIAN FOR PROMPT INTERVENTION. [code = PHYSICAL THERAPY FOR OBSERVATION AND ASSESSMENT OF PAIN, EFFECTIVENESS OF PAIN MANAGEMENT REGIMEN AND SKILLED TEACHING RELATED TO PAIN MANAGEMENT. THERAPIST TO REPORT INCREASED PAIN LEVEL TO PHYSICIAN FOR PROMPT INTERVENTION.] Future Scheduled Test RN TO EVAL UATE PATIENT SECONDARY TO DEFICITS/CONCERNS FOUND DURING EVALUATION INCLUDING CONSTIPATION AND LOW BLOOD PRESSURE. [code = RN TO EVALUATE PATIENT SECONDARY TO DEFICITS/CONCERNS FOUND DURING EVALUATION INCLUDING CONSTIPATION AND LOW BLOOD PRESSURE.] Future Scheduled Test OCCUPATION AL THERAPIST TO EVALUATE PATIENT SECONDARY TO DEFICITS/CONCERNS FOUND DURING EVALUATION INCLUDING ADLS/BATHROOM SAFETY. [code = OCCUPATIONAL THERAPIST TO EVALUATE PATIENT SECONDARY TO DEFICITS/CONCERNS FOUND DURING EVALUATION INCLUDING ADLS/BATHROOM SAFETY.] Future Scheduled Test OCCUPATION AL THERAPIST TO EVALUATE PATIENT SECONDARY TO FUNCTIONAL DEFICITS/SAFETY CONCERNS IDENTIFIED DURING EVALUATION OCCUPATIONAL THERAPY TO ESTABLISH /UPGRADE/DOWNGRADE THERAPEUTIC EXERCISE PROGRAM AND INSTRUCT PATIENT/CAREGIVER ON EXERCISE PRECAUTIONS WITH WRITTEN HOME PROGRAM. MAY INCLUDE PROM, AAROM, AROM, RROM APPROPRIATE TO IMPROVE FUNCTIONAL STRENGTH AND/OR RANGE OF MOTION. OCCUPATIONAL THERAPY TO INSTRUCT PATIENT/CAREGIVER ON SAFE TRANSFER TECHNIQUES USING PROPER BODY MECHANICS AND EQUIPMENT TO ENHANCE PARTICIPATION IN ADLS. OCCUPATIONAL THERAPY TO ASSESS AND RECOMMEND HOME SAFETY ADAPTATIONS AND EDUCATE PATIENT /CAREGIVER ON FALL PREVENTION STRATEGIES TO ENHANCE PARTICIPATION IN ADLS. OCCUPATIONAL THERAPY TO PROVIDE PATIENT/CAREGIVER WITH INSTRUCTIONS AND RECOMMENDATIONS TO IMPROVE ADLS WHILE USING APPROPRIATE ADAPTIVE DEVICES RECOMMENDED. SUMMARY OF THERAPY EVAL/ASSESSMENT FINDINGS AND REASON(S) SKILLS OF A THERAPIST ARE INDICATED: OT EVALUATION (02/07/22) PATIENT IS A 62 YO FEMALE REFERED TO OT SERVICES AFTER RECENT ELECTIVE RIGHT TOTAL HIP ARTHROPLASTY 02/01/22 [place] [facility] [place]. PATIENT WAS DISCHARGED HOME 02/03/22. PMH SIGNIFICANT FOR: OA, BIPOLAR, MULTIPLE SCLEROSIS, SLEEP APNEA, ATRIAL FIBRILLATION, MULTIPLE TIAS, HTN, HYPERLIPIDEMIA, RESTLESS LEG SYNDROME, RIGHT TKR 04/2019, CARPAL TUNNEL RELEASE. PRIOR LEVEL OF FUNCTION: PATIENT LIVES IN SINGLE FAMILY HOME WITH BOYFRIEND. PATIENT USED CANE FOR MOBILITY AND MANAGED BASIC ADLS. HAD ASSISTANCE WITH IADLS, ALTHOUGH DROVE. PATIENT ON DISABILITY PRIOR, NOT WORKING. CURRENT LEVEL OF FUNCTION: PATIENT SEEN IN THE PRESENCE OF BOYFRIENDevendra FOOTE FOR OT EVALUATION TODAY. PATIENT WAS AMBULATING FROM THE BATHROOM UPON THERAPIST ARRIVAL. PATIENT WAS ABLE TO NAVIGATE WITH SHALINI WALKER FROM BATHROOM TO LIVING ROOM AND ABLE TO GET IN AND OUT OF ELECTRIC RECLINER CHAIR. PATIENT USING ABDUCTOR CUSHION APPROPRIATELY WHEN SITTING IN A CHAIR AND THEN ELEVATING LEG. PATIENT IS ABLE TO PERFORM TOILET TRANSFER TO STAND TRANSFER SLOW HOWEVER ABLE TO COMPLETE WITH SUPERVISION AT THIS TIME. PATIENT REPORTS SHE COMPLETED SHOWER WITH BOYFRIEND YESTERDAY WHO PROVIDED MODERATE ASSISTANCE TO GET IN AND OUT WITH TUB TRANSFER USING A TUB SEAT SIT AND SWING WITH HIM ASSISTING THE LEG IN AND OUT OF THE TUB. PATIENT WAS ABLE TO PERFORM BATHING COMPONENT USING LONG HANDLED SPONGE HANDHELD SHOWER HEAD. 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 PATIENT IS CURRENTLY DEPENDENT AND ALL ASPECTS OF IADL AT THIS TIME DUE TO PAIN AND SLOW MOBILITY. EDUCATION WAS PROVIDED ON USE OF WALKER FOR TRANSPORT OF ITEMS ADDING A BAG TO ASSIST WITH THIS PROCESS WHEN SHE IS HOME ON HER OWN FOR BRIEF. PATIENT REPORTS PAIN IN RIGHT HIP RATED AT A SIX OUT OF 10 TODAY SHE HAS MANAGED A BETTER MEDICATION REGIME WITH THE PAIN MEDS AND MUSCLE RELAXER AFTER MEETING WITH THE NURSE TODAY. PATIENT DEMONSTRATES WITHIN FUNCTIONAL LIMITS RANGE OF MOTION BOTH UPPER EXTREMITIES FAIR STRENGTH THROUGHOUT BILATERALLY WEAKER IN HER BICEPS THAN HER TRICEPS. DOES REPORT SOME DIFFICULTY WITH FINE MOTOR COORDINATION DUE TO THE MS DISEASE PROCESS. ASSESSMENT/POC: OCCUPATIONAL THERAPY EVALUATION COMPLETED THIS DATE WITH RECOMMENDATION FOR SKILLED OT SERVICES TO ADDRESS SAFETY AND STRENGTHENING FOR SELFCARE AND FUNCTIONAL TRANSFERS TO RETURN TO PRIOR LEVEL. PATIENT AND CAREGIVER IN AGREEMENT WITH 1X/WKX4. NOTIFIED OF OT EVAL AND POC. ORTHO F/U 02/15/22. [code = OCCUPATIONAL THERAPIST TO EVALUATE PATIENT SECONDARY TO FUNCTIONAL DEFICITS/SAFETY CONCERNS IDENTIFIED DURING EVALUATION OCCUPATIONAL THERAPY TO ESTABLISH /UPGRADE/DOWNGRADE THERAPEUTIC EXERCISE PROGRAM AND INSTRUCT PATIENT/CAREGIVER ON EXERCISE PRECAUTIONS WITH WRITTEN HOME PROGRAM. MAY INCLUDE PROM, AAROM, AROM, RROM APPROPRIATE TO IMPROVE FUNCTIONAL STRENGTH AND/OR RANGE OF MOTION. OCCUPATIONAL THERAPY TO INSTRUCT PATIENT/CAREGIVER ON SAFE TRANSFER TECHNIQUES USING PROPER BODY MECHANICS AND EQUIPMENT TO ENHANCE PARTICIPATION IN ADLS. OCCUPATIONAL THERAPY TO ASSESS AND RECOMMEND HOME SAFETY ADAPTATIONS AND EDUCATE PATIENT /CAREGIVER ON FALL PREVENTION STRATEGIES TO ENHANCE PARTICIPATION IN ADLS. OCCUPATIONAL THERAPY TO PROVIDE PATIENT/CAREGIVER WITH INSTRUCTIONS AND RECOMMENDATIONS TO IMPROVE ADLS WHILE USING APPROPRIATE ADAPTIVE DEVICES RECOMMENDED. SUMMARY OF THERAPY EVAL/ASSESSMENT FINDINGS AND REASON(S) SKILLS OF A THERAPIST ARE INDICATED: OT EVALUATION (02/07/22) PATIENT IS A 62 YO FEMALE REFERED TO OT SERVICES AFTER RECENT ELECTIVE RIGHT TOTAL HIP ARTHROPLASTY 02/01/22 [place] [facility] [place]. PATIENT WAS DISCHARGED HOME 02/03/22. PMH SIGNIFICANT FOR: OA, BIPOLAR, MULTIPLE SCLEROSIS, SLEEP APNEA, ATRIAL FIBRILLATION, MULTIPLE TIAS, HTN, HYPERLIPIDEMIA, RESTLESS LEG SYNDROME, RIGHT TKR 04/2019, CARPAL TUNNEL RELEASE. PRIOR LEVEL OF FUNCTION: PATIENT LIVES IN SINGLE FAMILY HOME WITH BOYFRIEND. PATIENT USED CANE FOR MOBILITY AND MANAGED BASIC ADLS. HAD ASSISTANCE WITH IADLS, ALTHOUGH DROVE. PATIENT ON DISABILITY PRIOR, NOT WORKING. CURRENT LEVEL OF FUNCTION: PATIENT SEEN IN THE PRESENCE OF BOYFRIENDevendra FOOTE FOR OT EVALUATION TODAY. PATIENT WAS AMBULATING FROM THE BATHROOM UPON THERAPIST ARRIVAL. PATIENT WAS ABLE TO NAVIGATE WITH SHALINI WALKER FROM BATHROOM TO LIVING ROOM AND ABLE TO GET IN AND OUT OF ELECTRIC RECLINER CHAIR. PATIENT USING ABDUCTOR CUSHION APPROPRIATELY WHEN SITTING IN A CHAIR AND THEN ELEVATING LEG. PATIENT IS ABLE TO PERFORM TOILET TRANSFER TO STAND TRANSFER SLOW HOWEVER ABLE TO COMPLETE WITH SUPERVISION AT THIS TIME. PATIENT REPORTS SHE COMPLETED SHOWER WITH BOYFRIEND YESTERDAY WHO PROVIDED MODERATE ASSISTANCE TO GET IN AND OUT WITH TUB TRANSFER USING A TUB SEAT SIT AND SWING WITH HIM ASSISTING THE LEG IN AND OUT OF THE TUB. PATIENT WAS ABLE TO PERFORM BATHING COMPONENT USING LONG HANDLED SPONGE HANDHELD SHOWER HEAD. 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 PATIENT IS CURRENTLY DEPENDENT AND ALL ASPECTS OF IADL AT THIS TIME DUE TO PAIN AND SLOW MOBILITY. EDUCATION WAS PROVIDED ON USE OF WALKER FOR TRANSPORT OF ITEMS ADDING A BAG TO ASSIST WITH THIS PROCESS WHEN SHE IS HOME ON HER OWN FOR BRIEF. PATIENT REPORTS PAIN IN RIGHT HIP RATED AT A SIX OUT OF 10 TODAY SHE HAS MANAGED A BETTER MEDICATION REGIME WITH THE PAIN MEDS AND MUSCLE RELAXER AFTER MEETING WITH THE NURSE TODAY. PATIENT DEMONSTRATES WITHIN FUNCTIONAL LIMITS RANGE OF MOTION BOTH UPPER EXTREMITIES FAIR STRENGTH THROUGHOUT BILATERALLY WEAKER IN HER BICEPS THAN HER TRICEPS. DOES REPORT SOME DIFFICULTY WITH FINE MOTOR COORDINATION DUE TO THE MS DISEASE PROCESS. ASSESSMENT/POC: OCCUPATIONAL THERAPY EVALUATION COMPLETED THIS DATE WITH RECOMMENDATION FOR SKILLED OT SERVICES TO ADDRESS SAFETY AND STRENGTHENING FOR SELFCARE AND FUNCTIONAL TRANSFERS TO RETURN TO PRIOR LEVEL. PATIENT AND CAREGIVER IN AGREEMENT WITH 1X/WKX4. NOTIFIED OF OT EVAL AND POC. ORTHO F/U 02/15/22.] Future Scheduled Test SKILLED NU RSE TO EVALUATE PATIENT, IDENTIFY PRIMARY AND CO-MORBID CONDITIONS CODED PER CODING GUIDELINES, AND DEVELOP PATIENT SPECIFIC PLAN OF CARE THAT INCLUDES PATIENT GOAL FOR HOME HEALTH. CLINICAL SUMMARY (SOC) THE PATIENT IS RECEIVING HOMECARE DUE TO R HIP REPLACEMENT RECENT HOSPITALIZATION/INPATIENT ADMISSION RELATED TO: R HIP NEW OR CHANGED MEDICATIONS: BACLOFEN, DILAUDUD PATIENT LIVING SITUATION/CAREGIVER STATUS: SIG OTHER RECENT FALLS: N SUMMARIZE SKILLED NEED: MEDICATION DISEASE TEACHING AND MANAGEMENT ADDITIONAL DISCIPLINES NEEDED OR DECLINED ORDERED SERVICES: COUNTY HISTORIAN NURSE TO ASSESS PATIENT'S SKIN INTEGRITY AND INSTRUCT PATIENT/CAREGIVER ON MEASURES TO PREVENT PRESSURE ULCERS SKILLED NURSE TO REVIEW PATIENT MEDICATIONS. INSTRUCT PATIENT/CAREGIVER ON MONITORING OF EFFECTIVENESS, ADVERSE DRUG REACTIONS, SIDE EFFECTS OF ALL MEDICATIONS (PRESCRIPTION/-OTC), AND HOW AND WHEN TO REPORT PROBLEMS. SKILLED NURSE TO PERFORM HOME SAFETY AND FALL ASSESSMENT AND PROVIDE INSTRUCTION TO IMPLEMENT HOME SAFETY AND FALL PREVENTION STRATEGIES. SKILLED NURSE FOR OBSERVATION AND ASSESSMENT OF PATIENTS PAIN LEVEL AND EFFECTIVENESS OF PAIN MANAGEMENT REGIMEN. SKILLED NURSE TO INSTRUCT PATIENT/CAREGIVER REGARDING PHARMACOLOGIC AND NON-PHARMACOLOGIC PAIN CONTROL MEASURES. SKILLED NURSE TO REPORT TO PHYSICIAN IF PAIN IS UNCONTROLLED WITH CURRENT PAIN MANAGEMENT REGIMEN. PATIENT HAS A RISK OF REHOSPITALIZATION. SKILLED NURSE TO ESTABLISH SUPPORT MEASURES TO MINIMIZE RISK OF REHOSPITALIZATION, AND INSTRUCT PATIENT/CAREGIVER ON METHODS TO REDUCE AVOIDABLE HOSPITALIZATION. SKILLED NURSE TO PROVIDE INSTRUCTION TO PATIENT/CAREGIVER RELATED TO DISCHARGE PLANNING. NEED FOR SKILLED TEACHING AND INTERVENTION RELATED TO R HIP SURGICAL INCISION. DSG WILL BE REMOVED FEB 15, 2022 MONITOR DSG FOR DRAINAGE SKILLED NURSE TO PROVIDE ASSESSMENT AND TEACHING/REINFORCEMENT OF MANAGEMENT OF DEPRESSION INCLUDING DISEASE PROCESS, MEDICATION MANAGEMENT, COPING SKILLS AND IDENTIFY CHANGES ASSOCIATED WITH DEPRESSIVE DISORDERS FOR EARLY INTERVENTION. SKILLED NURSE FOR O/A OF MUSCULOSKELETAL STATUS AND TEACHING ON MEASURES TO MANAGE MUSCLE AND TO MAINTAIN SAFETY WITH ACTIVITY SKILLED NURSE TO OBTAIN PULSE OXIMETRY MEASUREMENT PRN FOR SIGNS AND SYMPTOMS OF SHORTNESS OF BREATH, ACTIVITY INTOLERANCE AND WHEN OXYGEN IS ORDERED. VIRTUAL VISIT FREQUENCY: 1-5 PER WEEK X 4 WEEKS, AND 5 PRN VIRTUAL VISITS MAY BE PERFORMED UTILIZING TELECOMMUNICATIONS SYSTEM TO OPTIMIZE SKILLED SERVICES FURNISHED ON THE PLAN OF CARE. SKILLED NURSE TO ESTABLISH SUPPORT MEASURES TO MINIMIZE RISK OF REHOSPITALIZATION, AND INSTRUCT PATIENT/CAREGIVER ON METHODS TO REDUCE AVOIDABLE HOSPITALIZATION. SKILLED NURSE TO PROVIDE TEACHING ON SIGNS AND SYMPTOMS AND MANAGEMENT OF HYPERTENSION. INSTRUCTED PATIENT/CAREGIVER ON SIGNS AND SYMPTOMS, RISK FACTORS, COMPLICATIONS, AND MANAGEMENT OF ATRIAL FIBRILLATION. SKILLED NURSE TO INSTRUCT PATIENT/CAREGIVER ON AFTERCARE FOLLOWING RIGHT HIP JOINT REPLACEMENT, INCLUDING PRECAUTIONS, SIGNS AND SYMPTOMS OF POST-OP COMPLICATIONS, PAIN MANAGEMENT TECHNIQUES, AND RIGHT HIP SKILLED NURSE FOR O/A TO IDENTIFY CHANGES ASSOCIATED WITH NEWLY DIAGNOSED MS AND PROVIDE INSTRUCTION RELATED TO SAFETY MEASURES TO PREVENT INJURY SECONDARY TO IMPAIRED NEUROLOGICAL STATUS. SKILLED NURSE TO REPORT SIGNIFICANT CHANGES OF NEUROLOGIC STATUS TO PHYSICIAN FOR EARLY INTERVENTION. SKILLED NURSE FOR O/A OF ALTERED MOOD DUE TO BIPOLAR D/O [code = SKILLED NURSE TO EVALUATE PATIENT, IDENTIFY PRIMARY AND CO-MORBID CONDITIONS CODED PER CODING GUIDELINES, AND DEVELOP PATIENT SPECIFIC PLAN OF CARE THAT INCLUDES PATIENT GOAL FOR HOME HEALTH. CLINICAL SUMMARY (SOC) THE PATIENT IS RECEIVING HOMECARE DUE TO R HIP REPLACEMENT RECENT HOSPITALIZATION/INPATIENT ADMISSION RELATED TO: R HIP NEW OR CHANGED MEDICATIONS: BACLOFEN, DILAUDUD PATIENT LIVING SITUATION/CAREGIVER STATUS: SIG OTHER RECENT FALLS: N SUMMARIZE SKILLED NEED: MEDICATION DISEASE TEACHING AND MANAGEMENT ADDITIONAL DISCIPLINES NEEDED OR DECLINED ORDERED SERVICES: COUNTY HISTORIAN NURSE TO ASSESS PATIENT'S SKIN INTEGRITY AND INSTRUCT PATIENT/CAREGIVER ON MEASURES TO PREVENT PRESSURE ULCERS SKILLED NURSE TO REVIEW PATIENT MEDICATIONS. INSTRUCT PATIENT/CAREGIVER ON MONITORING OF EFFECTIVENESS, ADVERSE DRUG REACTIONS, SIDE EFFECTS OF ALL MEDICATIONS (PRESCRIPTION/-OTC), AND HOW AND WHEN TO REPORT PROBLEMS. SKILLED NURSE TO PERFORM HOME SAFETY AND FALL ASSESSMENT AND PROVIDE INSTRUCTION TO IMPLEMENT HOME SAFETY AND FALL PREVENTION STRATEGIES. SKILLED NURSE FOR OBSERVATION AND ASSESSMENT OF PATIENTS PAIN LEVEL AND EFFECTIVENESS OF PAIN MANAGEMENT REGIMEN. SKILLED NURSE TO INSTRUCT PATIENT/CAREGIVER REGARDING PHARMACOLOGIC AND NON-PHARMACOLOGIC PAIN CONTROL MEASURES. SKILLED NURSE TO REPORT TO PHYSICIAN IF PAIN IS UNCONTROLLED WITH CURRENT PAIN MANAGEMENT REGIMEN. PATIENT HAS A RISK OF REHOSPITALIZATION. SKILLED NURSE TO ESTABLISH SUPPORT MEASURES TO MINIMIZE RISK OF REHOSPITALIZATION, AND INSTRUCT PATIENT/CAREGIVER ON METHODS TO REDUCE AVOIDABLE HOSPITALIZATION. SKILLED NURSE TO PROVIDE INSTRUCTION TO PATIENT/CAREGIVER RELATED TO DISCHARGE PLANNING. NEED FOR SKILLED TEACHING AND INTERVENTION RELATED TO R HIP SURGICAL INCISION. DSG WILL BE REMOVED FEB 15, 2022 MONITOR DSG FOR DRAINAGE SKILLED NURSE TO PROVIDE ASSESSMENT AND TEACHING/REINFORCEMENT OF MANAGEMENT OF DEPRESSION INCLUDING DISEASE PROCESS, MEDICATION MANAGEMENT, COPING SKILLS AND IDENTIFY CHANGES ASSOCIATED WITH DEPRESSIVE DISORDERS FOR EARLY INTERVENTION. SKILLED NURSE FOR O/A OF MUSCULOSKELETAL STATUS AND TEACHING ON MEASURES TO MANAGE MUSCLE AND TO MAINTAIN SAFETY WITH ACTIVITY SKILLED NURSE TO OBTAIN PULSE OXIMETRY MEASUREMENT PRN FOR SIGNS AND SYMPTOMS OF SHORTNESS OF BREATH, ACTIVITY INTOLERANCE AND WHEN OXYGEN IS ORDERED. VIRTUAL VISIT FREQUENCY: 1-5 PER WEEK X 4 WEEKS, AND 5 PRN VIRTUAL VISITS MAY BE PERFORMED UTILIZING TELECOMMUNICATIONS SYSTEM TO OPTIMIZE SKILLED SERVICES FURNISHED ON THE PLAN OF CARE. SKILLED NURSE TO ESTABLISH SUPPORT MEASURES TO MINIMIZE RISK OF REHOSPITALIZATION, AND INSTRUCT PATIENT/CAREGIVER ON METHODS TO REDUCE AVOIDABLE HOSPITALIZATION. SKILLED NURSE TO PROVIDE TEACHING ON SIGNS AND SYMPTOMS AND MANAGEMENT OF HYPERTENSION. INSTRUCTED PATIENT/CAREGIVER ON SIGNS AND SYMPTOMS, RISK FACTORS, COMPLICATIONS, AND MANAGEMENT OF ATRIAL FIBRILLATION. SKILLED NURSE TO INSTRUCT PATIENT/CAREGIVER ON AFTERCARE FOLLOWING RIGHT HIP JOINT REPLACEMENT, INCLUDING PRECAUTIONS, SIGNS AND SYMPTOMS OF POST-OP COMPLICATIONS, PAIN MANAGEMENT TECHNIQUES, AND RIGHT HIP SKILLED NURSE FOR O/A TO IDENTIFY CHANGES ASSOCIATED WITH NEWLY DIAGNOSED MS AND PROVIDE INSTRUCTION RELATED TO SAFETY MEASURES TO PREVENT INJURY SECONDARY TO IMPAIRED NEUROLOGICAL STATUS. SKILLED NURSE TO REPORT SIGNIFICANT CHANGES OF NEUROLOGIC STATUS TO PHYSICIAN FOR EARLY INTERVENTION. SKILLED NURSE FOR O/A OF ALTERED MOOD DUE TO BIPOLAR D/O ] Goal 2022-03-27 Patient Goal - I WANT TO WAL K BETTER. Goal 2022-02-28 Patient Goal - I WANT TO WAL K BETTER. Goal Provider Goal - PHYSICAL THERAPY EVALUATION TO BE COMPLETED WITH RECOMMENDATIONS AND/OR WRITTEN TREATMENT PLAN OF CARE ESTABLISHED FOR THE PHYSICIANS SIGNATURE Goal Provider Goal - A PLAN OF CARE WILL BE ESTABLISHED THAT MEETS PATIENT'S SKILLED NEEDS AND INCLUDES PATIENT GOAL FOR HOME HEALTH. Goal Provider Goal - PATIENT/CAREGIVER WILL VERBALIZE/DEMONSTRATE UTILIZATION OF TOOLS ASSOCIATED WITH THE [facility] SPECIALTY PROGRAM Goal Provider Goal - PATIENT/CAREGIVER VERBALIZES UNDERSTANDING OF THE INITIAL BEST PRACTICE RECOMMENDATIONS. PHYSICIAN TO BE NOTIFIED APPROPRIATE FOR ANY CHANGES OR COMPLICATIONS. Goal Provider Goal - PATIENT/CAREGIVER WILL PERFORM THERAPEUTIC EXERCISE/S AND DEMONSTRATE PARTICIPATION IN A HOME PROGRAM WITH RIGHT HIP STRENGTH IMPROVED TO >=3+/5 TO IMPROVE FUNCTION OF AMBULATION. Goal Provider Goal - PATIENT/CAREGIVER WILL DEMONSTRATE IMPROVED BED MOBILITY TECHNIQUES TO IMPROVE FUNCTION OF SIT-->SUPINE IMPROVED TO MOD I. Goal Provider Goal - PATIENT/CAREGIVER WILL DEMONSTRATE SAFE TRANSFERS USING LEAST RESTRICTIVE AD (POTENTIALLY CANE) BODY MECHANICS TO IMPROVE FUNCTION OF ADLS/IADLS. Goal Provider Goal - PATIENT/CAREGIVER WILL DEMONSTRATE IMPROVED GAIT TECHNIQUES AND DEMO ABILITY TO AMB 100' WITH LEAST RESTRICTIVE AD MOD I (POTENTIALLY CANE) AND DEMO ABILITY TO ASCEND/DESCEND STAIRS WITH CANE AND SUPERVISION TO MINIMIZE RISK OF INJURY AND INCREASE FUNCTION OF ACCESSING COMMUNITY. Goal Provider Goal - PATIENT/CAREGIVER WILL DEMONSTRATE IMPROVED BALANCE AND REDUCE THE RISK OF FALLS AND INJURY AND STATIC STAND IMPROVED TO GOOD+ TO IMPROVE FUNCTION OF ADLS/IADLS. Goal Provider Goal - PATIENT/CAREGIVER WILL DEMONSTRATE/VERBALIZE UNDERSTANDING OF RECOMMENDATIONS TO INCREASE SAFETY IN THE HOME AND FALL PREVENTION TO IMPROVE FUNCTION OF AMBULATION. Goal Provider Goal - PATIENT/CAREGIVER WILL BE INSTRUCTED IN S/S OF INFECTION. INCISION WILL SHOW SIGNS OF HEALING WITHOUT INFECTION. ESTEE/SUTURES REMOVED IF ORDERED. Goal Provider Goal - PATIENT O2 SATURATION LEVEL WILL REMAIN WITHIN PARAMETERS TO IMPROVE FUNCTION OF AMBULATION. Goal Provider Goal - PATIENTS WOUND/S RECEIVE PROPER TREATMENT TO PREVENT INFECTION AND FACILITATE WOUND HEALING. PATIENT/CAREGIVER ARE INSTRUCTED IN CARING FOR WOUND. Goal Provider Goal - INCREASED PAIN OR INEFFECTIVE PAIN CONTROL MEASURES WILL BE IDENTIFIED AND PROMPTLY REPORTED TO THE PHYSICIAN. PATIENT/CAREGIVER WILL DEMONSTRATE EFFECTIVE PAIN MANAGEMENT TO IMPROVE FUNCTION OF AMBULATION. Goal Provider Goal - NURSING EVALUATION TO BE COMPLETE WITH RECOMMENDATIONS AND WRITTEN TREATMENT PLAN OF CARE ESTABLISHED FOR PHYSICIANS SIGNATURE Goal Provider Goal - OCCUPATIONAL THERAPY EVALUATION TO BE COMPLETED WITH RECOMMENDATIONS AND/OR WRITTEN TREATMENT PLAN OF CARE ESTABLISHED FOR THE PHYSICIANS SIGNATURE. Goal Provider Goal - OCCUPATIONAL THERAPIST TO EVALUATE PATIENT SECONDARY TO FUNCTIONAL DEFICITS/SAFETY CONCERNS IDENTIFIED DURING EVALUATION. PATIENT/CAREGIVER WILL PERFORM THERAPEUTIC EXERCISE/S AND DEMONSTRATE PARTICIPATION IN A HOME PROGRAM TO IMPROVE STRENGTH/ ENDURANCE FOR SELFCARE AND FUNCTIONAL TRANSFERS. PATIENT/CAREGIVER WILL DEMONSTRATE SAFE TRANSFERS USING APPROPRIATE ASSISTIVE DEVICE AND EQUIPMENT TO IMPROVE TUB TRANSFERS. CAREGIVER/PATIENT WILL DEMONSTRATE/VERBALIZE UNDERSTANDING OF RECOMMENDATIONS TO INCREASE SAFETY IN THE HOME AND FALL PREVENTION TO INCREASE INDEPENDENCEWITH ADLS AND FUNCTIONAL TRANSFERS. PATIENT/CAREGIVER WILL DEMONSTRATE IMPROVED ABILITY TO PERFORM ACTIVITIES OF DAILY LIVING TO IMPROVE LB DRESSING TASK. Goal Provider Goal - A PLAN OF CARE WILL BE ESTABLISHED THAT MEETS PATIENT'S FPC NEEDS AND INCLUDES PATIENT GOAL FOR HOME HEALTH. PATIENT/CAREGIVER WILL VERBALIZE UNDERSTANDING OF PRESSURE ULCER PREVENTION BY END OF CERTIFICATION PATIENT/CAREGIVER WILL VERBALIZE UNDERSTANDING OF EDUCATION PROVIDED ON MEDICATIONS BY THE END OF THE CERTIFICATION PERIOD. PATIENT/CAREGIVER WILL VERBALIZE/DEMONSTRATE EFFECTIVE HOME SAFETY AND FALL PREVENTION STRATEGIES THROUGHOUT CERTIFICATION PERIOD. PATIENT/CAREGIVER WILL DEMONSTRATE UNDERSTANDING OF PHARMACOLOGIC AND NONPHARMACOLOGIC PAIN CONTROL MEASURES AND PATIENT WILL HAVE IMPROVEMENT IN PAIN INTERFERING WITH ACTIVITY EVIDENCED BY PAIN CONTROLLED AT LEVEL OF 7 OR LESS BY END OF CERTIFICATION PERIOD. PATIENT WILL HAVE SUPPORT MEASURES ESTABLISHED TO PREVENT REHOSPITALIZATION AND PATIENT/CAREGIVER WILL VERBALIZE/DEMONSTRATE METHODS TO REDUCE AVOIDABLE HOSPITALIZATION BY END OF CERTIFICATION PATIENT/CAREGIVER WILL VERBALIZE UNDERSTANDING OF DISCHARGE PLANNING INSTRUCTIONS BY DATE OF DISCHARGE. WOUND CARE WILL BE COMPLETED AND PATIENT WILL HAVE IMPROVED WOUND STATUS EVIDENCED BY NO SIGNS AND SYMPTOMS OF INFECTION, DECREASED WOUND SIZE, AND/OR NO COMPLICATIONS BY THE END OF THE CERTIFICATION PERIOD. PATIENT/CAREGIVER WILL VERBALIZE/DEMONSTRATE UNDERSTANDING OF THE MANAGEMENT OF DEPRESSION BY THE END OF THE EPISODE AND SYMPTOMS ARE IDENTIFIED AND MANAGED TO MAINTAIN PATIENT SAFETY IN THE HOME PATIENT/CAREGIVER WILL VERBALIZE/DEMONSTRATE ABILITY TO MANAGE MUSCULOSKELETAL DISEASE WHILE MAINTAINING SAFETY BY END OF CERTIFICATION PULSE OXIMETER RESULTS OBTAINED NEEDED FOR RESPIRATORY COMPLICATIONS THROUGHOUT THE CERTIFICATION PERIOD. PATIENT/CAREGIVER WILL UTILIZE VIRTUAL VISITS TO ACHIEVE GOALS OUTLINED ON THE PLAN OF CARE. PATIENT WILL HAVE SUPPORT MEASURES ESTABLISHED TO PREVENT REHOSPITALIZATION AND PATIENT/CAREGIVER WILL VERBALIZE/DEMONSTRATE METHODS TO REDUCE AVOIDABLE HOSPITALIZATION. PATIENT/CAREGIVER WILL VERBALIZE SIGNS AND SYMPTOMS OF HYPERTENSION AND WILL BE ABLE TO DEMONSTRATE ABILITY TO MANAGE EXACERBATION BY END OF EPISODE PATIENT/CAREGIVER WILL VERBALIZE UNDERSTANDING OF SIGNS AND SYMPTOMS, COMPLICATIONS, AND MANAGEMENT OF ATRIAL FIBRILLATION PATIENT/CAREGIVER WILL VERBALIZE/DEMONSTRATE MANAGEMENT OF AFTERCARE FOLLOWING JOINT REPLACEMENT INCLUDING SIGNS AND SYMPTOMS TO REPORT AND METHODS TO PREVENT POST-OP COMPLICATIONS BY END OF CERTIFICATION PERIOD. CHANGES IN NEUROLOGIC STATUS WILL BE IDENTIFIED AND REPORTED TO THE PHYSICIAN FOR PROMPT INTERVENTION OF ASSOCIATED RISK. PATIENT/CAREGIVER WILL VERBALIZE/DEMONSTRATE APPROPRIATE SAFETY MEASURES TO PREVENT INJURY BY THE END OF THE CERTIFICATION PERIOD. PATIENT WILL BE ABLE TO PERFORM DAILY FUNCTIONS AND HAVE OPTIMAL IMPROVEMENT IN MOOD STABILITY. Reason for Visit INDEPENDENT WITH USE OF ASSISTIVE DEVICE Encounters Start Date/Time End Date/Time Encounter Type Admission Type Attending [facility] Care Department Encounter ID Discharge Date Discharge Status Discharge Condition Discharge Reason Percent Goals Met 2022-02-04 00:00:00 2022-03-27 00:00:00 Outpatient NEW ADMISSION [facility] [id number] 00:00:00 DISCHARGE TO HOME OR SELF CARE INDEPENDEN T WITH USE OF ASSISTIVE DEVICE NO LONGER HOMEBOUND ( ONLY) 74.55
--- OUTSIDE RECORDS SUMMARY | 2024-05-18 17:12 | XMS_ITS | Clinical Summary ---
Author Organization Unknown Care Team Providers Care Continuing Education Director Name Role Phone BRIDGER ENCISO, ASHLEY Unavailable Unavailable SONNY TRAVELER CHANGER, GABRIELLA Unavailable Unavailable LUCITA RN, FEI Unavailable Unavailable VON RONNY TRAVELER CHANGER, BACILIO Unavailable Unavail able ESTHELA PT, NANCY Unavailable Unavailable DAGOBERTO RN, CHEL Unavailable Unavailable KALETINA TRAVELER CHANGER, KI Unavailable Unavailab le Payers Payer Name Policy Type Policy Number Effective Date Expira tion Date ZZZ [employer] MEDICARE ADVANTAGE FFS [id number] MEDICARE - NGS [place] - PDGM [id number] Problems Condition Name Condition Details Condition Category Status Onset Date Resolution Date Last Treatment Date Treating Clinician Comments MULTIPLE SCLEROSIS Active 05-05 00:00: 00 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 05-05 00:00: 00 ESSENTIAL (PRIMARY) HYPERTENSION Active 05-05 00:00: 00 BIPOLAR DISORDER, UNSPECIFIED Active 05-05 00:00: 00 FCI (CURRENT) USE OF ANTIBIOTICS Active 05-05 00:00: [...] 200 mg capsule 01-24 00:00: 00 Yes [id number] 1 capsule EVERY DAY 1 capsule EVERY DAY (route: oral) Med Classific ation: Analgesic , Anti-infl ammatory or Antipyret ic docusate sodium 100 mg capsule 01-24 00:00: 00 Yes [id number] 1 capsule TWICE DAILY 1 capsule TWICE DAILY (route: oral) Med Classific ation: Gastroint estinal Therapy Agents atorvastati n 20 mg tablet 01-10 00:00: 00 Yes [id number] 1 tablet DAILY 1 tablet DAILY (route: oral) Med Classific ation: Cardiovas cular Therapy Agents Eliquis 5 mg tablet 01-10 00:00: 00 02-04 23:59 :00 No [id number] Per instruc tions TWICE DAILY Per instructio ns TWICE DAILY (route: oral) Med Classific ation: Hematolog ical Agents gabapentin 600 mg tablet 01-10 00:00: 00 Yes [id number] Per instruc tions EVERY EVENING AND AT BEDTIME AT BEDTIME TWICE DAILY Per instructio ns EVERY EVENING AND AT BEDTIME AT BEDTIME TWICE DAILY (route: oral) Med Classific ation: Central Nervous System Agents isosorbide mononitrate ER 30 mg tablet,exte nded release 24 hr 01-10 00:00: 00 Yes [id number] Unavailable Per instruc tions EVERY DAY Per instructio ns EVERY DAY (route: oral) Med Classific ation: Cardiovas cular Therapy Agents lamotrigine ER 200 mg tablet,exte nded release 24 hr 01-10 00:00: 00 Yes [id number] 2 tablet DAILY 2 tablet DAILY (route: oral) Med Classific ation: Central Nervous System Agents lorazepam 2 mg tablet 01-10 00:00: 00 Yes [id number] Per instruc tions EVERY NIGHT AT BEDTIME Per instructio ns EVERY NIGHT AT BEDTIME (route: oral) Med Classific ation: Central Nervous System Agents methylpheni date 20 mg tablet 01-10 00:00: 00 Yes [id number] 1 tablet THREE TIMES DAILY 1 tablet THREE TIMES DAILY (route: oral) Med Classific ation: Central Nervous System Agents metoprolol tartrate 50 mg tablet 01-10 00:00: 00 Yes [id number] 1 tablet TWICE DAILY 1 tablet TWICE DAILY (route: oral) Med Classific ation: Cardiovas cular Therapy Agents nitroglycer in 0.4 mg sublingual tablet 01-10 00:00: 00 Yes [id number] Per instruc tions EVERY 5 MINS IF NEEDED Per instructio ns EVERY 5 MINS IF NEEDED (route: sublingual ) Med Classific ation: Cardiovas cular Therapy Agents omeprazole 20 mg capsule,del ayed release 01-10 00:00: 00 Yes [id number] Per instruc tions DAILY Per instructio ns DAILY (route: oral) Med Classific ation: Gastroint estinal Therapy Agents valacyclovi r 1 gram tablet 01-10 00:00: 00 Yes [id number] Unavailable 1 tablet DAILY 1 tablet DAILY (route: oral) Med Classific ation: Anti-Infe ctive Agents ergocalcife rol (vitamin D2) 1,250 mcg (50,000 unit) capsule 01-10 00:00: 00 Yes [id number] 1 capsule 1 TIME A WEEK 1 capsule 1 TIME A WEEK (route: oral) Med Classific ation: Electroly te Balance-N utritiona l Products Acetaminoph en Extra Strength 500 mg tablet 2021-05 0 00:00: 00 Yes [id number] 1 tablet EVERY 6 HOURS 1 tablet EVERY 6 HOURS (route: oral) Med Classific ation: Analgesic , Anti-infl ammatory or Antipyret ic baclofen 5 mg tablet 2021-05 0 00:00: 00 Yes [id number] 1 tablet 3 TIMES DAILY 1 tablet 3 TIMES DAILY (route: oral) Med Classific ation: Locomotor System Dilaudid 2 mg tablet 2021-05 00:00: 00 Yes [id number] 2 tablet EVERY 4 HOURS 2 tablet EVERY 4 HOURS (route: oral) Med Classific ation: Analgesic , Anti-infl ammatory or Antipyret ic Eliquis 2.5 mg tablet 2021-05 00:00: 00 02-16 23:59 :00 No [id number] 1 tablet 2 TIMES DAILY 1 tablet [...] HIP ARTHROPLASTY 02/01/22 BY MD SPARKS OF [facility] [place] [facility] [place]/01[place]03[place]. FOLLOWUP MD SPARKS APPOINTMENT 02/15/22 AT [...] I OUTDOORS, INDEP ON STAIRS DME: FWW, NET APPLICATION SUPPORT SPECIALIST, LONG HANDLED SHOE HORN, COMMODE, LEG VENEER GLUER, ELEVATED TOILET SEAT, GRAB BARS, HAND HELD [...] HIP ARTHROPLASTY 02/01/22 BY MD SPARKS OF [facility] [place], [facility] AT [facility] 02/01-02/03/22. FOLLOWUP MD SPARKS APPOINTMENT 02/15/22 AT [...] I OUTDOORS, INDEP ON STAIRS DME: FWW, NET APPLICATION SUPPORT SPECIALIST, LONG HANDLED SHOE HORN, COMMODE, LEG VENEER GLUER, ELEVATED TOILET SEAT, GRAB BARS, HAND HELD [...] Future Scheduled Test PATIENT TO PARTICIPATE IN [facility] JO[facility] VENTURE SPECIALTY PROGRAM [code = PATIENT TO PARTICIPATE IN [facility] SPECIALTY PROGRAM] Future Scheduled Test PHYSICAL T [...] FOR FALL AND INJURY INCLUDING PARTICIPATION IN [facility] BALANCE SPECIALTY PROGRAM [code = PHYSICAL THERAPY TO INSTRUCT PATIENT/CAREGIVER ON BALANCE AND BALANCE STRATEGIES TO IMPROVE SAFE MOBILITY AND REDUCE RISK FOR FALL AND INJURY INCLUDING PARTICIPATION IN [facility] BALANCE SPECIALTY PROGRAM] Future Scheduled Test [...] RIGHT TOTAL HIP ARTHROPLASTY 02/01/22 COMPLETED AT [facility] [place] SPARKS. PATIENT WAS DISCHARGED HOME [...] ADAPTIVE EQUIPMENT FOR DRESSING INCLUDING SOCK AID NET APPLICATION SUPPORT SPECIALIST LONG-HANDLED SHOE HORN DRESSING STICK AND LONG [...] RIGHT TOTAL HIP ARTHROPLASTY 02/01/22 COMPLETED AT [facility] [place] SPARKS. PATIENT WAS DISCHARGED HOME [...] ADAPTIVE EQUIPMENT FOR DRESSING INCLUDING SOCK AID NET APPLICATION SUPPORT SPECIALIST LONG-HANDLED SHOE HORN DRESSING STICK AND LONG [...] ADDITIONAL DISCIPLINES NEEDED OR DECLINED ORDERED SERVICES: MANUFACTURING QUALITY ENGINEER NURSE TO ASSESS PATIENT'S SKIN INTEGRITY AND [...] ADDITIONAL DISCIPLINES NEEDED OR DECLINED ORDERED SERVICES: MANUFACTURING QUALITY ENGINEER NURSE TO ASSESS PATIENT'S SKIN INTEGRITY AND [...] VERBALIZE/DEMONSTRATE UTILIZATION OF TOOLS ASSOCIATED WITH THE [facility] JOINT [facility] SPECIALTY PROGRAM Goal Provider Goal - PATIENT/CAREGIVER [...] CARE WILL BE ESTABLISHED THAT MEETS PATIENT'S LONG TERM NEEDS AND INCLUDES PATIENT GOAL FOR HOME [...] End Date/Time Encounter Type Admission Type Attending [facility] Care Department Encounter ID Discharge Date Discharge Status Discharge Condition Discharge Reason Percent Goals Met 2022-02-04 00:00:00 2022-03-27 00:00:00 Outpatient NEW ADMISSION FEI LANDRUM [facility] [id number] 00:00:00 DISCHARGE TO HOME OR SELF CARE INDEPENDEN T WITH USE OF ASSISTIVE DEVICE NO LONGER HOMEBOUND ( ONLY) 74.55
--- OUTSIDE RECORDS SUMMARY | 2024-05-18 17:12 | XMS_ITS | Continuity of Care Document ---
Author Organization [facility] [address] [place] [address] Phone [phone] Care Team Providers Care Radiology Aide Name Role Phone Gustavo Suarez M.D. Care Team Information Recei yadira [phone] Clarence Leiva MD Care Team Information R eceiver [phone] Problems Active Problems Provider Date Multinodular goiter Jono Holm M.D. Onset: 12/12/2022 History of transient ischaemic attack Jono ornelas M.D. Onset: 12/12/2022 Bipolar disorder Jono Holm M.D. Onset: Cerebrovascular accident Jono Holm M.D. O nset: 12/12/2022 Multiple sclerosis Jono Holm M.D. Onset: 12/12/2022 Atrial fibrillation Jono Holm M.D. Onset: 12/12/2022 Depressive disorder Jono Holm M.D. Onset: 12/12/2022 Thyroid nodule Jono Holm M.D. Onset: 02/2023 Osteoarthritis Jono Holm M.D. Onset: 02/2023 Social History Type Date Description Comments Sex Unknown Tobacco Use Start: Unknown End: Unknown Quit 1991 ETOH Use Rarely consumes alcohol Tobacco Use Start: Unknown End: Unknown Patient is a former smoker Smoking Status Reviewed: 12/12/22 Patient is a former smoker Allergies and adverse reactions Active Allergies Criticality Reaction Severity Comments Date Penicillins Unable to assess criticality 12/12/2022 Medications Active Medications SIG Qnty Indications Order ing Provider Date Estradiol0.075mg/24HR Patches Weekly Apply 1 Patch Once A Week Unknown [id number] Tablets Take 1 Tablet By Mouth Twice Daily as Needed For Muscle Spasm Krystina Mendez NP Bggachgyz8po Tablets Take half hs Unknow n Vitamin D (Ergocalciferol)1.25mg (17316 Ut) Capsules Take 1 Capsule By Mouth every other week Unknown Yhjzugzxzp12yl Capsules DR Take 1 Capsule By Mouth Every Day 30 Minutes Before Breakfast Gustavo Suarez M.D. [id number] Tablets 300mg am, 300mg 2pm, 1200mg 8pm Unknown Itxuglw1la Tablets Take 1 Tablet By Mouth Twice Daily Linda Astudillo MD Lamotrigine [id number] Tablets ER 24HR Take 2 Tablets By Mouth Every Day Unknown Methylphenidate [id number] Tablets Take 1 Tablet By Mouth Three Times Daily prn Unknown Bupropion DWN90ga Tablets Take 1 Tablet By Mouth Twice Daily Unknown Valacyclovir [id number] Tablets Unknown Tizanidine HCL2mg Tablets Unknown Vital Signs Date Vital Result Comment 04/22/2024 2:06pm BP Systolic 124 mmHg BP Diastolic 76 mmHg Heart Rate 77 /min Height 63 inches 5'3 Weight 120.00 lb BMI (Body Mass Index) 21.3 kg/m2 Results Test Acquired Date Facility Test Result H/L Range Note Laboratory test finding 08/18/2023 [facility] Thyrotropin Receptor Ab, Serum <1.10 IU/L 0.00-1.7 5 Triiodothyronin e (T3), Free 3.5 pg/mL 2.0-4.4 TSH+Free T4 08/18/2023 [facility] TSH 0.071 uIU/mL Low 0.450-4. 500 T4,Free(Direct) 1.32 ng/dL 0.82-1.7 7 Laboratory test finding 12/12/2022 [facility] TSH With Reflex To FT4 0.33 uIU/mL Low (0.4-4.2 ) Anti Thyroid Peroxidase AB <3.0 IU/mL (<5.6) 1 25Oh Vitamin D 50.0 NG/ML (20-50) Free T4 0.90 ng/dL (0.70-1. 80) 1 Antibody measurement represents one parameter in a multicriteria diagnostic process. Correlate results with clinical presentation. This test was performed on the [employer] immunoassay system. Medical Devices Description No Information Available Encounters Type Date Location Provider Dx Diagnosis Office Visit 04/22/2024 2:15p Main Office [facility] I48.91 Unspecified a trial fibrillation E04.2 Nontoxic multinodula r goiter E05.90 Thyrotoxicosis, unsp without thyrotoxic crisis or storm Assessments Date Code Description Provider 04/22/2024 I48.91 Atrial fibrillation [facility] 04/22/2024 E04.2 Multinodular goiter [facility] 04/22/2024 E05.90 Thyrotoxicosis, unspecified without thyrotoxic crisis or storm [facility] Plan of Treatment Future Appointment(s):* 07/30/2024 1:15 pm - [facility] at Main Office 04/22/2024 - [facility]* I48.91 Atrial fibrillation * E04.2 Multinodular goiter * E05.90 Thyrotoxicosis, unspecified without thyrotoxic crisis or storm Functional Status Description No Information Available Mental Status Description No Information Available Referrals Description No Information Available
== END 2024-05-18 14:39 | disposition home or self-care (01) ==
LOC: HO.RESP 14:38
PROVIDERS: Visit Provider Nurse Practitioner Family
DX: R06.00 Dyspnea, unspecified (principal)
CPT/HCPCS: 94010; 94640; 94727; 94729

== ENCOUNTER → 2024-05-18 14:46 | Outpatient (BNV) | payer MEDICARE, OTHER, SELFPAY | PROVIDERS: Visit Provider Internal Medicine Pulmonary Disease | DX: R06.09 Other forms of dyspnea (principal) | CPT/HCPCS: 94060; 94727; 94729 ==

== ENCOUNTER 2024-06-01 14:00 | Outpatient (AMB) | payer MEDICARE, OTHER, SELFPAY ==
--- NOTE | 2024-06-01 14:14 | MHC.OFFVIS ---
Vital Signs 06/01/24 14:15 Height 5 ft 3 in Weight 116 lb BMI 20.5 BP 122/64 Blood Pressure Location Lt brachial Position Sitting Pulse 81 Pulse Source Pulse Oximeter Pulse Oximetry (%) 98 Oxygen Delivery Method Room Air Intake Visit Reasons: dyspnea/ PFT follow up Intake Note: Patient refused in office weight today..The weight listed was provided by patient. Mix Technician Required: No Security Compliance Specialist: Security Compliance Specialist offered & declined Accompanied by: Self / Same As Patient Allergies penicillin G [Penicillin G] Allergy (Mild, Verified 06/01/24 14:21) RASH penicillin V Allergy (Unknown, Verified 06/01/24 14:21) Abdominal Pain mold Allergy (Verified 06/01/24 14:21) Headache Uwpezsz-ONQ-SfK Reductase Inhibitor Allergy (Verified 06/01/24 14:21) Weakness codeine [Codeine] Adverse Reaction (Mild, Verified 06/01/24 14:21) SEVERE ABDOMINAL PAIN Medication List - Last Reconciled 06/01/24 by Maryjane Viera LPN acetaminophen 1,000 mg (2 x 500 mg) PO Q8H PRN albuterol sulfate 90 mcg/actuation 2 puffs inhalation Q4-6H PRN alprazolam 0.25 mg PO BID PRN apixaban (Eliquis) 5 mg PO BID@0900,1900 baclofen 20 mg PO TID biotin 10,000 mcg PO DAILY bupropion HCl 75 mg PO QAM diazepam (Valium) 5 mg PO DAILY PRN enoxaparin mg subcut ergocalciferol (vitamin D2) 1,250 mcg PO Q2W estradiol 1 patch transdermal WE@0900 gabapentin 1,200 mg PO DAILY@1900 lamotrigine ER 400 mg PO DAILY lorazepam 2 mg PO DAILY@2300 magnesium hydroxide (Milk of Magnesia) 15 mL PO BEDTIME PRN methylphenidate HCl 10 mg PO TID PRN omeprazole 20 mg PO DAILY@0630 [rollator As directed] tizanidine 2 mg PO TID PRN valacyclovir 500 mg PO BID HPI HPI dyspnea/ PFT follow up: Details: Ying is a pleasant 64 year old female, never smoker, with underlying chronic headaches, afib on Eliquis, TIA, cardiomyopathy, BHANU, Bipolar disorder, occasional tremors, RLS, and anemia. 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 Since then she has been referred to a neuromuscular specialist, physical therapy and business development. She was also started on valium 5 mg QD in addition to baclofen from neurologist as well as Renexa from bulb weeder for persistent angina. She had a chest CT, reviewed report and unremarkable. Prior stress test through [facility] Dr. Ventura reportedly unremarkable and scheduled for echo May, prior EKG reportedly normal. She reports dyspnea is likely related to diaphragmatic spasms, in which she was started on muscle relaxers. Prior to her initial visit, these symptoms were persistent however have been less frequent. Today she presents to review PFT results. [facility] Medical History (Updated 06/07/24 @ 17:08 by Charmaine Jeter NP) Hypersomnia Witnessed apneic spells Arthritis Difficulty swallowing Weakness On anticoagulant therapy Lumbar spondylosis Spinal stenosis in cervical region Restless legs syndrome (RLS) Anemia Fatigue Cervical spondylosis Anxiety Bipolar disease, manic Occasional tremors Obstructive sleep apnea Insomnia GERD (gastroesophageal reflux disease) Cardiac microvascular disease TIA (transient ischemic attack) Atrial fibrillation Cardiomyopathy Surgical History H/O cervical discectomy History of partial hysterectomy History of tonsillectomy Hx of hand surgery History of radiofrequency ablation procedure for cardiac arrhythmia History of esophagogastroduodenoscopy (EGD) H/O colonoscopy H/O radiofrequency ablation (RFA) of nerve of lumbar spine Hx of cervical spine surgery Hx of shoulder surgery H/O: knee surgery Hx of cholecystectomy History of carpal tunnel release Hx of appendectomy Family History Father Dementia Cancer Mother Cancer COPD (chronic obstructive pulmonary disease) Multiple sclerosis Daughter Myasthenia Social History Household Members: Significant Other Housing: House Are you a primary director of medicare to a significant other at home: No Do you presently have visiting nurse 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, [employer]) Alcohol intake: never Comment: counts correct Patient Tobacco Use Status: Never used Tobacco service: No Review of Systems Const Denies chills, Denies excessive sweating, Denies fever(s) and Denies night sweats Eyes Denies dry eyes, Denies irritation and Denies itchy eyes ENT Reports Normal hearing present, Denies nasal congestion, Denies nasal discharge, Denies post nasal drip and Denies sore throat Card Denies claudication, Denies leg edema, Reports dyspnea, Reports dyspnea on exertion and Denies paroxysmal nocturnal dyspnea Resp Denies chest congestion, Denies cough, Denies hemoptysis, Denies excessive phlegm production, Denies pain on inspiration, Denies pain with cough, Reports dyspnea, Reports dyspnea on exertion, Denies stridor and Denies wheezing Musc Reports muscle cramps and Reports muscle weakness Neuro Reports Normal hearing present Endo Denies excessive sweating Laron/Lymph Denies lymphadenopathy Aller/Immun Denies itchy eyes, Denies seasonal rhinorrhea and Denies wheezing Physical Exam Vital Signs: Last Vital Signs Pulse 81 06/01/24 14:15 BP 122/64 06/01/24 14:15 Pulse Ox 98 06/01/24 14:15 Oxygen Delivery Method Room Air 06/01/24 14:15 BMI result Body Mass Index 20.5 Const General: cooperative, healthy appearing, comfortable, no acute distress, well developed and alert Orientation/consciousness: patient oriented x3 Limitations: no limitations HEENT Head: Yes normal to inspection, Yes normocephalic and Yes atraumatic Ears: hearing grossly normal bilaterally and external ears normal Eyes General: appearance normal, both eyes and all related structures Eyelids: Yes eyelids normal Sclerae: sclerae normal EOM: EOMs intact bilaterally Neck Neck: Yes normal visual inspection and Yes no lymphadenopathy Lymphatic: no lymphadenopathy noted Chest Chest palpation & inspection: normal inspection of the chest Resp Effort & Inspection: normal respiratory effort, able to speak in complete sentences, no audible wheezes, no cough, no stridor, not tachypneic, no tripod positioning and no use of accessory muscles Auscultation: clear to auscultation bilaterally Cardio Jugular venous distension: no JVD Rate: regular rate Rhythm: regular rhythm Skin Other: warm, dry General skin exam: no rashes or lesions noted Neuro General: patient oriented x3 Cranial nerves: Yes Normal hearing present Cognition (Neuro): normal cognition Gait exam (Neuro): Normal gait present Extrem General: Yes normal to inspection, Yes capillary refill normal, Yes no clubbing, cyanosis or edema and Yes no pedal edema Psych Appearance: grossly normal and well kempt Speech and movement: Normal speech and movement present and Clear speech present Affect: normal affect Attitude: cooperative Thought process: Normal thought process present Thought content: Normal thought content present Insight: Good insight present (Psych) Judgement: Good judgement present (Psych) Assessment & Plan Assessment & Plan (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 Bronchodilator response is present in small to medium airways only. Lung volumes WNL. DLCO normal. Will repeat PFT in 6-[address] report which revealed scattered tiny granulomas otherwise unremarkable. Given she had some response to bronchodilator, encouraged continued use of albuterol MDI PRN. She was started on valium for muscle spasms by neurologist, will assess response at next visit for occurrences of diaphragmatic spasms. At this time, she reports spasms resulting in dyspnea have been infrequent. She will be working with business development to promote weight gain and physical therapy to reduce spasms/stiffness and improve mobility. All questions were answered and patient is in agreement of plan. Will follow up in 4-6 weeks or sooner if needed. Orders: Orders PFT pulmonary function test 11 Months R06.00 - Dyspnea, unspecified Coding Level of Care Code Est Pt Level 4 (54101) Diagnoses Stiff person syndrome G25.82 Dyspnea R06.00
[2024-06-01 14:15] VITALS: BP 122/64; PULSE 81; O2SAT 98; BMI 20.5
--- OUTSIDE RECORDS SUMMARY | 2024-06-01 14:57 | XMS_ITS | Clinical Summary ---
Author Organization [facility] Address [address] [address] Phone Care Team Providers Care Line Locator Name Role Phone Gustavo Suarez DO Primary Care Provider [phone] Allergies Active Allergy Reactions Criticality Noted Date Comments Codeine Nausea And Vomiting, Other (see comments) Medium 07/09/2017 Hydrocodone-Acetaminophen Other (see com ments),Nausea And Vomiting 11/27/2022 Lactose Other (see comments) 07/04/2020 Oxycodone-Acetaminophen Nausea And Vomiting 05/2021 Penicillins Hives,Other (see comments) 02/17/20 18 Medications estradiol (CLIMARA) 0.075 MG/24HR 1 patch 1 (one) time per week Active gabapentin (NEURONTIN) 600 MG tablet Take 2 capsules by mouth every night Active lamoTRIgine ER 200 MG tablet sustained-relea se 24 hour Take 2 tablets by mouth 1 (one) time each day Active LORazepam (ATIVAN) 2 MG tablet Take 1 tablet by mouth 1 (one) time each day Active nitroglycerin (NITROSTAT) 0.[address] 1 tablet under the tongue 1 (one) time each day Active valACYclovir (VALTREX) 1 g tablet Take 1 tablet by mouth 1 (one) time each day Active omeprazole (PriLOSEC) [address] capsule 20 mg 12/14/2020 Activ e Eliquis 5 MG tablet Take 5 mg by mouth 2 (two) times a day 02/09/2021 Active ALPRAZolam (XANAX) 0.5 MG tablet Take 0.5 mg by mouth 3 (three) times a day if needed 03/02/2021 Active methylphenidate (RITALIN) 20 MG tablet Take 20 mg by mouth in the morning and 20 mg in the evening. Active baclofen (LIORESAL) 20 MG tablet Take 10 mg by mouth in the morning and 10 mg in the evening and 10 mg before bedtime. 07/21/2023 Active buPROPion (WELLBUTRIN) 75 MG tablet Take 1 tablet by mouth in the morning and 1 tablet in the evening. 06/17/2023 Active amLODIPine (NORVASC) 5 MG tablet Take 5 mg by mouth 1 (one) time each day 03/10/2024 Active tiZANidine (ZANAFLEX) 2 MG tablet Take 2 mg by mouth in the morning and 2 mg in the evening. 01/23/2024 Active Active Problems Problem Noted Date Diagnosed Date Chest pain 02/12/2023 02/12/2023 Anxiety 02/12/2023 02/12/2023 Coronary arteriosclerosis 02/12/20232022 Inflammation of sacroiliac joint 02/12/2023 02/12/2023 Vaginal pain 02/12/2023 02/12/2023 Depressive disorder 12/12/2022 02/12/2023 Family history of transient ischemic attack 12/03 Multinodular goiter 12/12/2022 02/12/2023 Multiple sclerosis 12/12/2022 02/12/2023 Osteoarthritis 12/12/2022 02/12/2023 Thyroid nodule 12/12/2022 02/12/2023 Restless leg syndrome 03/07/2021 TIA 03/04/2021 Atrial fibrillation 03/04/2021 Hypertensive disorder 07/04/2020 History of sexually transmitted disease 05/24/19 21 Unexplained recurrent falls 04/04/2020 Incontinence of feces 04/08/2019 Cystocele, midline 02/19/2018 Female stress incontinence 02/19/2018 Overview (07/04/2020): Last Assessment & Plan: Her stress incontinence symptoms have essentially resolved after the sling procedure. She also noticed an improvement in her urinary urgency. She is overall very pleased with the results of the sling. Menopausal syndrome 02/19/2018 Overview (07/04/2020): Last Assessment & Plan: I explained that there may be a small increased risk of cardiovascular events associated with the use of estrogen replacement therapy. I explained that the risk may be slightly less with transdermal formulations as opposed to oral formulations. However, I do believe that her counselor supervisor should weigh in on this as well. Therefore, I will send a copy of today's note. Her current dose of estradiol is 0 0.075 mg per 24 hours changed weekly. I cannot find in the chart where her previous dose was but according to the notes it was decreased to this current dose. If her counselor supervisor is in agreement, she will call when she needs a refill. Encounters Date Type Department Care Team Description 03/17/2024 1:45 PM EST [facility] Visit [facility] [address] [address] Enrique Guido MD Hypertensive disorder (Primary Dx) 03/16/2024 Travel from Last 3 Months Family History Medical History Relation Comments Heart disease Father Cancer Mother Diabetes Sibling Relation Status Comments Father Unknown Mother Unknown Sibling Social History Tobacco Use Types Packs/Day Years Used Date Smoking Tobacco: Former Cigarettes Q uit: 10/09/1992 Smokeless Tobacco: Never Comments:Smoking History Inf o:Every day Alcohol Use Standard Drinks/Week Comments Yes 0 (1 standard drink = 0.6 oz pure alcohol) Alcoholic Drinks/day: Occasional social drink Comments Unknown Sex and Gender Information Value Date Recorded Sex Assigned at Not on file Legal Sex Female 4:52 PM EST Gender Identity Not on file Sexual Orientation Not on file Last Filed Vital Signs Vital Sign Reading Time Taken Comments Blood Pressure 110/60 03/17/2024 1:52 PM EST Pulse 77 03/25/2023 3:38 PM EST Temperature - - Respiratory Rate - - Oxygen Saturation 97% 03/25/2023 3:38 PM EST Inhaled Oxygen Concentration - - Weight 54.4 kg (120 lb) 03/17/2024 1:52 PM EST Height 160 cm (5' 3 ) 03/27/2022 9:23 AM EST Body Mass Index 21.26 03/27/2022 9:23 AM EST Plan of Treatment Health Maintenance Due Date Last Done Comments Breast Cancer Screening 1960 Pneumococcal Vaccine: Pediat rics (0 to 5 Years) and At-Risk Patients (6 to 64 Years) (1 of 2 - PCV) 01/09/1966 Colorectal Cancer Screening: Annual FOBT 01/09/2009 Colorectal Cancer Screening: Colonoscopy 01/09/2009 Colorectal Cancer Screening: Sigmoidoscopy 01/09/2009 Influenza Vaccine (#1) 2024 Hepatitis B Vaccine Aged Out No longe r eligible based on patient's age to complete this topic Insurance AETNA [facility] ADV PPO ([id number]) AETNA MCR ADV PPO ([id number]) CIGNA OPEN ACCESS ([id number]) Care Teams Line Locator Relationship Specialty Start Date End Date Gustavo Suarez DO [address] [place] [address] PCP - General 05/15/20
--- OUTSIDE RECORDS SUMMARY | 2024-06-01 14:57 | XMS_ITS ---
Author Organization [facility], [facility] Address [address] [place] [address] Care Team Providers Care Wireless Field Technician Name Role Phone Matt Guevara Primary Care Provider LEBRON Cordon [phone] REASON FOR VISIT Left 3 msgs, no reponse from pt Encounters Encounter Location Date Provider Diagnosis [address] [address] 02/11/2023 LEBRON CALDWELL Plan Of Treatment No Information Progress Notes * Ghada DENTONOB:[birth year] (63 yo F)Acc No.[id number]:02/11/2023 Patient:?Ying Denton :1960???Age:63 Y???Sex:Female Address:[place] [address] * true * Date:? Generated for Kristeni aldair/Sierra/eTransmitting on:?06/01/2024 02:57 PM EST
--- OUTSIDE RECORDS SUMMARY | 2024-06-01 14:57 | XMS_ITS | Data Portability ---
Author Organization [place] [facility], All[facility] Address [address] [address] Assessment No assessment recorded. Plan of Treatment [...] of nose, middle ear and accessory sinuses 234739979 Active 2019 Benign neoplasm of middle ear, nasal cavity and accessory sinuses; Note: Date Diagnosed : 04/07/2020 1:44 PM (D14.0) Not Available [facility] 02:19:03 Ataxia 18034731 Active 2019 Ataxia, unspecifi ed; Note: Date Diagnosed : 04/07/2020 1:44 PM (R27.0) Not Available [facility] 4 02:18:41 Dysphagia 06932152 Active 2023 GISELA PRUETT MD [address] [facility],[place] [address], [place], [address] , [facility] [place] 10:19:25 Gastroeso phageal reflux disease without esophagit is 788058752 Active 2023 GISELA PRUETT MD [address] [facility],[place] [address], [place], [address] , [facility] - [facility] 4 10:19:44 Chronic hoarsenes s 00405303093 05 Active 2023 GISELA PRUETT MD [address] [facility],[place] [address], [place], [address] , [facility] - [facility] 10:20:46 Problem Notes None recorded. Procedures Surgical History Date Name Laterality Status Provider Name and Address Organization Details Recorded Time 11/11/2023 FFL_RE completed GISELA PRUETT MD [address] [facility],[place] [address], [place], [address], [facility] - [facility] 11/11/2023 10:26:08 Imaging Results Imaging Date Name [...] Name and Address Organization Details Recorded Time 27203 Product containin g penicilli n and antibioti c (product) medicatio n hives Not available Not available 09/16/2023 88444 05 SNOMED React ion: skin rashe s, hives ;; Not Available [facility] 4 00:48:35 40188 codeine medicatio n nausea Not available Not available 09/16/2023 2670 RxNorm React ion: Stoma ch cramp s; Not Available [facility] 4 00:48:40 05193 acetamino phen / oxycodone medicatio n nausea Not available Not available 09/16/2023 58265 3 RxNorm React ion: nause a;; Not Available [facility] 4 00:48:40 Medications Name Sig Start Date [...] 20 mg tablet active Medicatio n ID: [id number] Br and Name: atorvasta tin Send Method: [...] release 24 hr active Medicatio n ID: [id number] Br and Name: isosorbid e mononitra te [...] 300 mg capsule active Medicatio n ID: [id number] Br and Name: gabapenti n Send Method: [...] 25 mg tablet active Medicatio n ID: [id number] Br and Name: metoprolo l tartrate Send [...] Updated DateTime 11/11/2023 160.02 cm 21.8 kg/m2 23347.86 g Delores Mejía [facility] 11/11/2023 09:58:27 Social History None recorded. Functional [...] Diagnosis Note [id number] GISELA PRUETT MD [facility] [address] [place] [address] 11/11/2023 09:08:06 11/11/2023 10:28:26 Dysphagia 67377540 R13.10 see below Gastroesop hageal reflux disease without esophagitis 106672230 K21.9 continue omeprazole per prescribin g provider Chronic hoarseness 96089 56227 105 R49.0 Her right vocal cord is sluggish. No glottic gap. Likely recovering after ACDF. MBS showed a safe swallow. I suspect her neuromuscu lar disorder may contribute to her dysphagia as well and I recommend she keep f/u with her neurologis ts at [place]. No ENT interventi on needed. No tumors [...] Name 11/11/2023 1 [employer] (MEDICARE REPLACEMENT PPO) [id number] Elke Denton [id number] Ying Denton 11/11/2023 2 [employer] [facility] (PPO) Ying Denton [id number] Ying Denton Notes Date Note Type Note [...] swallowing. She is being worked up at [place] for a neurologic disorder. She has muscle cramping and she can't use her left arm well. On omeprazole for GERD. Hx of ACDF. She has had some voice trouble since with difficulty projecting. GISELA PRUETT MD [address] [facility],[place] [address], [place], [address], [facility] - [facility] 11/11/2023 10:28:19 OBGyn Episode No OBEpisode recorded.
--- OUTSIDE RECORDS SUMMARY | 2024-06-01 14:57 | XMS_ITS | Clinical Summary ---
Author Organization [facility] Address [address] [place] [address] Care Team Providers Care Ornament Setter Name Role Phone Gustavo Suarez DO Primary Care Provider [phone] Allergies Active Allergy Reactions Criticality Noted Date Comments Codeine Nausea And Vomiting, Other (See Comments),Rash Medium 07/09/2017 Lactose Other (See Comments) 07/04/2020 Oxycodone-Acetaminophen Nausea And Vomiting 05/2021 Penicillins Hives,Other (See Comments),Rash Medium 07/09/2017 Medications Medication Sig Dispensed Refills Start Date End Date Status Eliquis 5 MG TABS tablet Take 1 tablet (5 mg total) by mouth 2 (two) times a day. 0 05/15/2021 Active estradiol (CLIMARA) 0.075 MG/24HR Place 1 patch onto the skin once a week. 0 05/10/2021 Active lamoTRIgine ER 200 MG TB24 Take 2 tablets by mouth daily. 0 04/04/2019 Active LORazepam (ATIVAN) 2 MG tablet Take 3 mg by mouth every night at bedtime. 0 04/30/2021 Active nitroglycerin (NITROSTAT) 0.[address] 1 tablet (0.4 mg total) under the tongue as needed. 0 06/21/2020 Active omeprazole (PriLOSEC) 20 MG capsule Take 1 capsule (20 mg total) by mouth daily. 30 minutes before breakfast 0 05/15/2021 Active valACYclovir (VALTREX) 1000 MG tablet as needed. 0 05/13/2021 Active albuterol 108 (90 Base) MCG/ACT inhaler Inhale 1 puff into the lungs every 4 (four) hours as needed. 0 07/13/2021 Active methylphenidate (RITALIN) 10 MG tablet Take 1 tablet (10 mg total) by mouth 3 (three) times a day. 0 08/16/2021 Active baclofen (LIORESAL) 20 MG tablet TAKE 1 TABLET BY MOUTH TWICE DAILY FOR MUSCLE SPASM 0 07/21/2023 Active buPROPion (WELLBUTRIN) 75 MG tablet Take 1 tablet (75 mg total) by mouth. 0 06/17/2023 Active gabapentin (NEURONTIN) 600 MG tablet Take 2 tablets (1,200 mg total) by mouth daily. 60 tablet 5 12/01/2023 Active ergocalciferol (VITAMIN D2) capsule 11219 units Take 1 capsule (50,000 Units total) by mouth once a week. 4 capsule 12 12/30/2023 Active Active Problems No known active problems Family History Medical History Relation Name Comments COPD Father Dementia Father Lung cancer Father Aortic stenosis Mother Bone cancer Mother Breast cancer Mother Lung cancer Mother Multiple sclerosis Mother Relation Name Status Comments Father Mother Social History Tobacco Use Types Packs/Day Years Used Date Smoking Tobacco: Former Cigarettes Q uit: 06/05/1995 Smokeless Tobacco: Never Tobacco Cessation:Counseling Given: Not Answered Alcohol Use Standard Drinks/Week Comments Not Currently 0 (1 standard drink = 0.6 oz pur e alcohol) Sex and Gender Information Value Date Recorded Sex Assigned at Not on file Gender Identity Not on file Sexual Orientation Not on file Job Start Date Occupation Industry Not on file Not on file Not on file Last Filed Vital Signs Vital Sign Reading Time Taken Comments Blood Pressure 120/78 08/08/2023 8:07 AM EDT Pulse 89 08/08/2023 8:07 AM EDT Temperature 35.9 ??C (96.6 ??F) 10/03/2021 8:16 AM ED T Respiratory Rate 16 10/03/2021 8:16 AM EDT Oxygen Saturation 97% 08/08/2023 8:07 AM EDT Inhaled Oxygen Concentration - - Weight 61 kg (134 lb 6.4 oz) 10/03/2021 8:16 AM EDT Height 160 cm (5' 3 ) 10/03/2021 8:16 AM EDT Body Mass Index 23.81 10/03/2021 8:16 AM EDT Plan of Treatment Health Maintenance Due Date Last Done Comments Hepatitis C Screening 1960 COVID-19 Vaccine (#1) 1960 Depression Screening 1972 BMI Counseling 01/09/1978 Preventative Health Evaluation 01/09/1978 DTap / Tdap / Td (1 - Tdap) 01/09/1979 Cervical Cancer Screening (P ap Smear) 01/09/1981 Colon Cancer Screening (Colonoscopy) 01/09/2005 Breast Cancer Screening (Mammogram) 01/09/2010 Shingrix-Zoster Vaccine (1 of 2) 01/09/2010 Influenza Vaccine (#1) 2024 Pneumococcal Vaccine (1 of 1 - PCV) 01/09/2025 RSV Adult > 60+ Yrs or Pregn ant (1 - 1-dose 75+ series) 01/09/2035 Hepatitis B Vaccines Aged Out No long er eligible based on patient's age to complete this topic Pneumococcal Vaccine Aged Out No long er eligible based on patient's age to complete this topic RSV Ped < 20 months Aged Out No longe r eligible based on patient's age to complete this topic Care Teams Ornament Setter Relationship Specialty Start Date End Date Gustavo Suarez DO [address] [place] [address] PCP - General Internal Medicine 06/23/18
--- OUTSIDE RECORDS SUMMARY | 2024-06-01 14:58 | XMS_ITS ---
Author Organization Gustavo Suarez DO [facility] Address [address] [place], [place] [id number] Care Team Providers Care Chief Of Production Name Role Phone Gustavo Suarez Primary Care Provider [phone] REASON FOR VISIT Needs call back from office Encounters Encounter Location Date Provider Diagnosis Gustavo Suarez DO, FACP [address] [place] [phone] 03/12/2024 Gustavo Suarez PLAN OF TREATMENT No Information
--- OUTSIDE RECORDS SUMMARY | 2024-06-01 14:58 | XMS_ITS ---
Author Name [facility] Organization Unknown Results Test Name/Text Value Interpretation Date Range Source cCP IgG SerPl-aCnc 1.2EliAU/mL Normal [id number] - 7 [facility] fine speckled Ser Ql IF Homogeneous Normal [id number] [facility] Titr Ser IF 1:80 Abnormal [id number] - Y [facility] Titr Ser IF Positive Abnormal [id number] - Y [facility] Methylmalonate SerPl-sCnc 0.13umol/L Normal [id number] 0 - 0.4 [facility] ESR Bld Qn 5mm/hr Normal [id number] 0 - 20 [facility] T CRP SerPl HS-mCnc 1.3mg/L Normal [id number] - [facility] CK SerPl-cCnc 212U/L Above high normal [id number] 11 - 204 [facility] Magnesium SerPl-mCnc 2.2mg/dL Normal [id number] 1.7 - 2.4 [facility] History of Medication Use Medication Directions Dispensed Refills Start Date End Date Stat aspirin 81 MG chewable tablet Chew 81 mg by mouth daily. 08/05/2019 08/08/2023 aborted Eliquis 5 MG TABS tablet Take 1 tablet (5 mg total) by mouth 2 (two) times a day. 05/15/2021 active albuterol 108 (90 Base) MCG/ACT inhaler Inhale 1 puff into the lungs every 4 (four) hours as needed. 07/13/2021 active gabapentin (NEURONTIN) 600 MG tablet Take 2 tablets (1,200 mg total) by mouth daily. 06/12/2023 active lamoTRIgine ER 200 MG TB24 Take 2 tablets by mouth daily. 04/04/2019 active omeprazole (PriLOSEC) 20 MG capsule Take 1 capsule (20 mg total) by mouth daily. 30 minutes before breakfast 05/15/2021 active baclofen (LIORESAL) 20 MG tablet TAKE 1 TABLET BY MOUTH TWICE DAILY FOR MUSCLE SPASM 07/21/2023 active Problems Problem Status Onset Date Problem Type Date of Resoluti on Source Encounter to establish care with new doctor active EncounterDiagnosisAct CTT [facility] Multiple sclerosis (HCC) active EncounterDiagnosisAct [facility] MG
--- OUTSIDE RECORDS SUMMARY | 2024-06-01 14:58 | XMS_ITS | Encounter Summary ---
Author Organization [facility] Address [address] [place] [address] Care Team Providers Care Hull Outfit Supervisor Name Role Phone Gustavo Suarez DO Primary Care Provider [phone] Reason for Visit * Imaging (Routine) - Closed Specialty Diagnoses / Procedures Referred By Contsol t Referred To Contact Cardiology Diagnoses Shortness of breath Chest pain, unspecified type Procedures Transthoracic echocardiogram (TTE) complete with PRN contrast, bubble, strain, and 3D order panel [place] TTE W 2D IMAGE COMPLETE W DOPPLER ECHO & COLOR FLOW DOPPLER ECHO [place] RUBEN 2D COMPLETE W/CONTRAST OR W & WO CONTRAST WITH DOPPLER Ziggy Ventura MD [address] [place] [address] Dr Mcelroy [address] [place] [id number] [facility] Referral ID Status Reason Start Date Expiration Date Visits Re quested Visits Authorized [id number] Closed 03/10/2024 03/10/2025 1 1 Encounter Details Date Type Department Care Team (Latest Contact Info) Description 05/27/2024 11:00 AM EST Ancillary Procedure [facility] - [address] [place] [phone] Shortness of breath; Chest pain, unspecified type Social History Tobacco Use Types Packs/Day Years Used Date Smoking Tobacco: Former Cigarettes Q uit: 06/05/1995 Smokeless Tobacco: Never Alcohol Use Standard Drinks/Week Comments Not Currently 0 (1 standard drink = 0.6 oz pur e alcohol) Sex and Gender Information Value Date Recorded Sex Assigned at Female 04/05/2024 2:12 PM EST Gender Identity Female 04/05/2024 2:12 PM EST Sexual Orientation Straight 04/05/2024 2: 12 PM EST Job Start Date Occupation Industry Not on file Not on file Not on file documented as of this encounter Last Filed Vital Signs Vital Sign Reading Time Taken Comments Blood Pressure 140/70 05/27/2024 11:58 AM EST Pulse - - Temperature - - Respiratory Rate - - Oxygen Saturation - - Inhaled Oxygen Concentration - - Weight 52.6 kg (116 lb) 05/27/2024 11:58 AM EST Height 160 cm (5' 3 ) 05/27/2024 11:58 AM EST Body Mass Index 20.55 05/27/2024 11:58 AM EST documented in this encounter Plan of Treatment Upcoming Encounters Date Type Department Care Team (Late st Contact Info) Description 06/10/2024 1:30 PM EST Consult [facility] Cardiology [facility] [address] [facility] [address] [place] [address] Richard Santamaria MD [address] [place] [address] 07/28/2024 8:50 AM EDT Office Visit [facility] Cardiology [facility] [address] [place] [address] Ziggy Ventura MD [address] [place] [address] [address] [place] [address] documented as of this encounter Procedures Procedure Name Priority Date/Time Associated Diagnosis Comments TRANSTHORACIC ECHOCARDIOGRAM (TTE) COMPLETE Routine 05/27/2024 11:59 AM EST Shortness of breath Chest pain, unspecified type documented in this encounter Results * (ABNORMAL) TRANSTHORACIC ECHOCARDIOGRAM (TTE) COMPLETE (05/27/2024 11:59 AM EST) Left Atrium Minor Proctor 5.3 cm CV PACS Left Atrium Major Proctor 4.3 cm CV PACS LA Area Sys (A2C) 18 cm2 CV PACS LA Area Sys (A4C) 13 cm2 CV PACS LA Volume (BP) 41 mL CV PACS RA Area 9.6 cm2 CV PACS RA 2D Volume 17 mL CV PACS Aortic Sinus Valsalva 3.0 cm CV PACS Ascending Aorta 3.0 cm CV PACS IVC Proximal 1.8 cm CV PACS IVC Proximal 0.5 cm CV PACS IVSD 1.0(A) 0.6 - 0.9 cm CV PACS LVIDD 3.8 3.8 - 5.2 cm CV PACS LVIDS 2.7 2.2 - 3.5 cm CV PACS LVOT Diameter 2.2 cm CV PACS LVOT Mean Xander 0.4 m/s CV PACS LVOT Mean Grad 1 mmHg CV PACS LVOT Peak VTI 11.5 cm CV PACS LVOT Peak Xander 0.6 m/s CV PACS LVOT Peak Gradient 2 mmHg CV PACS LVPWD 0.9 0.6 - 0.9 cm CV PACS MV E' Tissue Velocity Lateral 8 cm/s CV PACS MV E' Tissue Velocity Septal 6 cm/s CV PACS LVOT Area 3.8 cm2 CV PACS LVOT Stroke Volume 44 mL CV PACS E Wave Deceleration Time 232 119 - 242 ms CV PACS MV Peak A Xander 0.64 m/s CV PACS MV Peak E Xander 0.48 m/s CV PACS PV Acceleration Time 127 ms CV PACS RV Diastolic Basal Dimension 3.1 2.5 - 4.1 cm CV PACS RV S' 13 cm/s CV PACS TAPSE 19 mm CV PACS E/E' Ratio Septal 8 CV PACS E/E' Ratio Averaged 7 CV PACS Relative Wall Thickness ratio 0.47 CV PACS FS 29 % CV PACS LV Mass 2D 109 g CV PACS LVOT flow 152 mL/s CV PACS E/A Ratio 0.8 CV PACS E/E' Ratio Lateral 6 CV PACS BSA 1.53 m2 CV PACS LA Volume Index (BP) 27 mL/m2 CV PACS LVIDD Index 2.48 cm/m2 CV PACS LVIDS Index 1.76 cm/m2 CV PACS LV Mass Index 2D 71 44 - 88 g/m2 CV PACS LVOT Stroke Index 29 mL/m2 CV PACS RA 2D Volume Index 11(A) 15 - 27 mL/m2 CV PACS Ascending Aorta Index 1.96 cm/m2 CV PACS Est. RA Pressure 3 mmHg CV PACS Anatomical Region Laterality Modality Ultrasound Narrative 05/27/2024 5:49 PM EST ?Left ventricle cavity size is normal. Left ventricle wall thickness is normal. Left ventricular systolic function is in the normal range with an ejection fraction of 55-60%. No regional LV wall motion abnormalities noted. There is no diastolic dysfunction. ?Right ventricle cavity is normal. Right ventricular systolic function is normal. ?Normal atrial size. ?No hemodynamically significant valvular disease. ?Right ventricular systolic pressure cannot be obtained. Left Ventricle Left ventricle cavity size is normal. Wall thickness is normal. Systolic function is normal with an ejection fraction of 55-60%. There are no regional LV wall motion abnormalities. There is no diastolic dysfunction. Right Ventricle Right ventricle cavity appears normal. Systolic function is normal. Left Atrium Left atrium cavity size is normal. Right Atrium Right atrium cavity is normal. IVC/SVC Inferior vena cava structure is normal. RA pressures is estimated to be 3 mmHg (IVC diameter <21 mm and decreases >50% during inspiration). Mitral Valve The leaflets are mildly thickened. There is mild annular calcification. There is no significant mitral valve regurgitation. There is no significant stenosis noted. Tricuspid Valve Tricuspid valve structure is normal. There is no significant regurgitation. There is no significant tricuspid valve stenosis. Cannot assess RVSP. Aortic Valve The aortic valve is trileaflet. The leaflets are mildly thickened and exhibit normal excursion. There is no regurgitation or stenosis. Pulmonic Valve The pulmonic valve was not well visualized. Pulmonic valve structure is normal. No significant pulmonic valve regurgitation. No significant pulmonary valve stenosis noted. Ascending Aorta The aorta appears normal in size. Pericardium Pericardium appears normal. There is no pericardial effusion. Study Details Overall the study quality was adequate. Ziggy Ventura MD CV ECHO PROCEDURES documented in this encounter Visit Diagnoses Diagnosis Shortness of breath Chest pain, unspecified type documented in this encounter Care Teams Hull Outfit Supervisor Relationship Specialty Start Date End Date Gustavo Suarez DO [address] [place] [phone] PCP - General 11/28/09 documented as of this encounter
--- OUTSIDE RECORDS SUMMARY | 2024-06-01 14:58 | XMS_ITS | Patient Health Record ---
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 Name Role Phone Gustavo Suarez MD Primary Care Provider Unavail able Magen Acevedo Unavailable [phone] Allergies Allergen (clinical drug ingredient) Drug/Non Drug [...] primary osteoarthritis of the ankle and/or foot (428883681) Primary osteoarthrit is, right ankle and foot (M19.071) Active confirmed Problem Acquired hallux valgus (65172543) Hallux valgus (acquired), right foot (M20.11) Active confirmed Problem Acquired hammer toe of right foot (9769044220603444) Other hammer toe(s) (acquired), right foot (M20.41) Active confirmed Problem 30902833 MS (multiple sclerosis) (G35) Active confirmed Vital Signs Height 5 ft 4 in in 12/22/2023 Weight 131 lbs 12/22/2023 BMI 22.48 kg/m2 12/22/2023 Encounters Encounter Location Date Provider Diagnosis [address] [address] 10/22/2023 Magen Acevedo Pain in right foot M79.671 ; Sprain of anterior talofibular ligament of right ankle, sequela S93.491S ; Contusion of right foot, sequela S90.31XS ; Stress fracture, right foot, sequela M84.374S ; Metatarsalgia, right foot M77.41 and Peripheral neuropathic pain M79.[address] [address] 11/24/2023 Magen Acevedo Pain in right foot M79.671 ; Sprain of anterior talofibular ligament of right ankle, sequela S93.491S ; Contusion of right foot, sequela S90.31XS ; Stress fracture, right foot, sequela M84.374S ; Metatarsalgia, right foot M77.41 and Peripheral neuropathic pain M79.[address] [address] 12/22/2023 Magen Acevedo Pain in right foot M79.671 ; Sprain of anterior talofibular ligament of right ankle, sequela S93.491S ; Metatarsalgia, right foot M77.41 and Peripheral neuropathic pain M79.[address] [address] 10/20/[address] [address] 10/22/[address] [address] 10/27/[address] [address] 11/04/[address] [address] 11/27/2023 [address] [place] [address] 12/09/2023 [facility] [address] [place] [address] 12/11/2023 [facility] Assessments Encounter Date Diagnosis (ICD Code) [...] X ray : Foot, right 3V 10/22/2023 19278- Debride <25 sq cm 05/20/2017 [id number] OF HEMATOMA/FLUID 019 X ray : Ankle, right 3V 10/22/2023 Insurance Providers Payer Name Payer Address Payer Phone Subscriber Number Group Number Insured Name Patient Relationship to Insured Coverage Start Date Coverage End Date [employer] [address] [place] [address] [id number] Ying Denton Self - patient is the insured [employer] [address] [place] [address] [id number] Ying Denton Self - patient is the [...] repair 1 06/11/16 Hospitalization History Reason Date(Month/Year) [facility] [place], [place], [place] [facility] 08/27/2017 [facility] - chest pain 019
--- OUTSIDE RECORDS SUMMARY | 2024-06-01 14:58 | XMS_ITS ---
Author Organization [facility] Address [address] [place] [address] Care Team Providers Care Locker Attendant Name Role Phone LAYA MUJICA Primary Care Provider Gustavo Amador Unavailable [phone] ALLERGIES Allergen (clinical drug ingredient) Drug/Non Drug Allergy documented on EMR Reaction Allergy Type Onset Date Status Mold sanches skin/headaches Allergy Active Penicillin Unknown Drug Allergy Active Tylenol with Codeine #3 Unknown Drug Allergy Active REASON FOR VISIT patient presents today for colon screening MEDICATIONS Medication SIG (Take, Route, Frequency, Duration) Notes Start Date End Date Status Gabapentin 900 MG 1 capsule Orally 300 mg in the a.m and 900 mg in the evening Active Vitamin D 1000 UNIT 1 tablet Orally Once a day for 30 day(s) Active valACYclovir HCl 1 GM 1 tablet Orally Once a day for 10 day(s) Active Hyoscyamine Sulfate 0.125 MG 1 or 2 tablets on the tongue and allow to dissolve Sublingual every 4 to 6 hrs as needed for abdominal cramps/discomfort for 30 days Please call my office if this is not covered by her insurance. Thanks very much 05/20/2024 Active lamoTRIgine 400 mg 2 tablet Orally Once a day Active Eliquis 5 MG as directed Orally Active Nitroglycerin 0.4 MG as directed Sublingual prn Active Lorazepam 3 tablets Oral at bedtime Active tiZANidine HCl 2 MG 1/2 tablet Orally Once a day as needed for muscle cramps Active Omeprazole Magnesium 20 MG 1 tablet 1/2 to 1 hour before morning meal Orally twice a day Active Baclofen 20 MG 1 Orally Three times a day Active PROBLEMS Problem Type ICD Code Onset Dates Problem Status W/U Status Risk SNOMED Code Notes Problem Colon cancer screening (Z12.11) Active confirmed Colon cancer screening (540494807) Problem Constipation (K59.00) Active confirmed Constipation (91036915) Problem IBS (irritable bowel syndrome) (K58.9) Active confirmed Irritable bowel syndrome (15767511) Problem Abdominal pain, left lower quadrant (R10.32) Active confirmed Left lower quadrant pain (794591523) VITAL SIGNS BMI 21.78 kg/m2 05/20/2024 Blood pressure systolic 00 mm Hg 05/20/19 25 Blood pressure diastolic 00 mm Hg 025 Height 62.5 in 05/20/2024 Weight 121 lbs 05/20/2024 Encounters Encounter Location Date Provider Diagnosis [facility] [address] [place] [address] 05/20/2024 Gustavo Sofia Colon cancer screeni ng Z12.11 ; History of adenomatous polyp of colon Z86.010 ; Constipation K59.00 ; IBS (irritable bowel syndrome) K58.9 and Abdominal pain, left lower quadrant R10.32 ASSESSMENTS Encounter Date Diagnosis Assessment Notes Treatment Notes Treatment Clinical Notes 05/20/2024 Colon cancer screening (ICD-10 - Z12.11) We will obtain a copy of the [facility] Colonoscopy from 2020 and will then decide at the next office visit if you need a screening colonoscopy this year or whether it can wait until 2025. 05/20/2024 History of adenomatous polyp of colon (ICD-10 - Z86.010) 05/20/2024 Constipation (ICD-10 - K59.00) 05/20/2024 IBS (irritable bowel syndrome) (ICD-10 - K58.9) 05/20/2024 Abdominal pain, left lower quadrant (ICD-10 - R10.32) PLAN OF TREATMENT Medication Medication Name Sig Start Date Stop Date Notes Hyoscyamine Sulfate 0.125 MG 1 or 2 tablets on the tongue and allow to dissolve Sublingual every 4 to 6 hrs as needed for abdominal cramps/discomfort for 30 days 05/20/2024 Please call my office if this is not covered by her insurance. Thanks very much Treatment Notes Assessment Notes Colon cancer screening We will obtain a copy of the [facility] Colonoscopy from 2020 and will then decide at the next office visit if you need a screening colonoscopy this year or whether it can wait until 2025. Next Appt Details Follow Up: 2024, Kayode n: Provider Name:Gustavo Sofia , 01/18/2025 09:30:00 AM, [address] [place] [address], [address], [place], [address],
--- OUTSIDE RECORDS SUMMARY | 2024-06-01 14:59 | XMS_ITS ---
Author Organization [facility] Address [address] [place] [address] Care Team Providers Care Library Clerk Name Role Phone Gustavo Suarez MD Primary Care Provider Unavail Magen Castro Unavailable [phone] REASON FOR VISIT [id number] Encounters Encounter Location Date Provider Diagnosis [facility] [address] [place] [address] 12/11/2023 Magen Acevedo Plan Of Treatment No Information Progress Notes * JOVANNAWillayajairaeDOB:[birth year] (63 yo F)Acc No.[id number]:12/11/2023 Patient:?Ying Denton :1960???Age:63 Y???Sex:Female Address:[place] [address] * true * Date:? Generated for Printi aldair/Sierra/eTransmitting on:?06/01/2024 02:58 PM EST
--- OUTSIDE RECORDS SUMMARY | 2024-06-01 14:59 | XMS_ITS | Clinical Summary ---
Author Organization [facility] Address [address] [place] [address] Phone Care Team Providers Care Cable Strander Name Role Phone Gustavo Suarez DO Primary Care Provider [phone] Allergies Active Allergy Reactions Criticality Noted Date Comments Adhesive 05/18/2024 Skin reaction to regular and allergan holter monitor adhesives. Codeine Nausea And Vomiting Medium 07/09/2017 Penicillins Medium 07/09/2017 Other Reaction(s): Rash/Dermatitis Hydrocodone-Acetaminoph en Nausea And Vomiting 03/25/2024 Medications Medication Sig Dispensed Refills Start Date End Date Status lamoTRIgine (LaMICtal) 200 mg tablet Take 2 tablets (400 mg total) by mouth 1 (one) time each day in the morning. Active LORazepam (ATIVAN) 1 mg tablet Take 1 mg by mouth at bedtime. Active valACYclovir (VALTREX) 1 gram tablet Take 1 Tab by mouth daily. 03/18/2017 Active apixaban (ELIQUIS) 5 mg tablet Take 1 tablet (5 mg total) by mouth 2 (two) times a day. Active baclofen (LIORESAL) 20 mg tablet Take by mouth 3 (three) times a day. Active tiZANidine (ZANAFLEX) 2 mg tablet Take 1 tablet (2 mg total) by mouth if needed. Active buPROPion (WELLBUTRIN) 75 mg tablet Take 0.5 tablets (37.5 mg total) by mouth 1 (one) time each day. Active omeprazole OTC (PriLOSEC OTC) 20 mg EC tablet Take 1 tablet (20 mg total) by mouth 2 (two) times a day. Do not crush, chew, or split. Active cholecalciferol (VITAMIN D-3) 1,250 mcg (50,000 unit) capsule Take 1 capsule (50,000 Units total) by mouth 1 (one) time per week. Active estradioL (VIVELLE-DOT) 0.075 mg/[address] 1 patch on the skin 2 (two) times a week. Active albuterol HFA (PROAIR HFA ; PROVENTIL HFA ; VENTOLIN HFA) 90 mcg/actuation inhaler Inhale 2 puffs by mouth every 6 (six) hours if needed for wheezing. Active ranolazine (Ranexa) 500 mg 12 hr tablet Take 1 tablet (500 mg total) by mouth 2 (two) times a day. 180 tablet 2 04/21/2024 Active gabapentin (NEURONTIN) 600 mg tablet Take 2 tablets (1,200 mg total) by mouth at bedtime. Take 2 tablets (1,200 mg total) by mouth at bedtime. 60 tablet 5 05/20/2024 Active gabapentin (NEURONTIN) 600 mg tablet Take 2 tablets (1,200 mg total) by mouth at bedtime. 05/20/2024 Discontinued (Reorder) Active Problems Problem Noted Date Diagnosed Date Dizziness 04/14/2024 Assessment & Plan (04/14/2024 4:08 PM EST): Patient reports ongoing symptoms of dizziness when she is exerting herself. She denies episodes of syncope. 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 Paul. Occasional PVCs noted on her ECG today. Will update 48-hour Holter monitor to assess for any arrhythmias or ectopy that may be contributing to her ongoing symptoms. Echocardiogram already scheduled from previous visit and to be completed as well. Orders: Cardiac holter monitor (<= 48 hours); Future Hyperlipidemia 04/14/2024 Assessment & Plan (04/14/2024 4:09 PM EST): Patient has history of hyperlipidemia and on review of her most recent blood work her LDL cholesterol was noted to be 121. Advised patient to initiate statin therapy yet she reports she has been intolerant in the past due to headaches. Educated her that there are alternative therapies that we could trial such as PCSK 9 inhibitors. 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 I have reviewed with the patient the importance of a heart healthy lifestyle which includes eating a low-fat low-salt diet, getting regular exercise, maintaining a healthy weight, not smoking, and following up with routine medical care. PAF (paroxysmal atrial fibrillation) 03/10/2024 Assessment & Plan (04/14/2024 4:08 PM EST): Patient has history of paroxysmal atrial fibrillation, she continues on Eliquis 5 mg twice daily based on her age, weight and kidney function. ECG today showing sinus rhythm with occasional PVCs, rate of 80 bpm. She denies palpitations. Orders: ECG 12 lead Cardiac holter monitor (<= 48 hours); Future TIA (transient ischemic attack) 03/10/2024 Chest pain 03/10/2024 Shortness of breath 03/10/2024 Cervical stenosis of spinal canal 06/18/2022 Encounters Date Type Department Care Team Description 05/27/2024 11:00 AM EST Ancillary Procedure [facility] Cardiology [facility] [address] [place] [phone] Shortness of breath; Chest pain, unspecified type 05/13/2024 Telephone [facility] Cardiology [facility] [address] [place] [phone] Gustavo Suarez DO Medical Records 05/07/2024 Telephone [facility] [address] [place] [phone] Ziggy Ventura MD Allergic Reaction 05/06/2024 11:00 AM EST Ancillary Procedure [facility] - [address] [place] [address] PAF (paroxysmal atrial fibrillation) (CMS/HCC); Dizziness; PVC's (premature ventricular contractions) 04/30/2024 Telephone [facility] Cardiology [facility] - [address] [place] [phone] Cardiology, [facility] [place] [facility] May 05 04/21/2024 Telephone [facility] [address] [place] [phone] Ziggy Ventura MD Med Refill 04/14/2024 1:10 PM EST Office Visit [facility] [address] [place] [address] Kimberly Abreu NP Coronary artery disease involving mechoopda coronary artery of mechoopda heart, unspecified whether angina present (Primary Dx); PAF (paroxysmal atrial fibrillation) (CMS/HCC); Dizziness; Hyperlipidemia, unspecified hyperlipidemia type; PVC's (premature ventricular contractions) 04/14/2024 Telephone [facility] [address] [place] [address] Ziggy Ventura MD FYI 04/07/2024 Telephone [facility] - [address] [place] [phone] Swathi Geller NP 04/05/2024 1:44 PM EST - 04/06/2024 11:25 AM EST Emergency [facility] Emergency [address] [place] [phone] Enrique Moyer MD Cauchon, Matthew C, DO Chest pain, unspecified type (Primary Dx) Discharge Disposition: Another Health Care Institution Not Defined 03/31/2024 Telephone [facility] [address] [place] [phone] Ziggy Ventura MD Results; breathing issues ; cath (Cath ) 03/25/2024 2:00 PM EST Ancillary Procedure [facility] - [address] [place] [phone] Chest pain, unspecified 03/12/2024 Telephone [facility] Cardiology [facility] [address] [place] [address] Ziggy Ventura MD Scheduling Nuclear Stress 03/10/2024 8:50 AM EST Office Visit [facility] Cardiology [facility] [address] [place] [address] Ziggy Ventura MD Shortness of breath (Primary Dx); Chest pain, unspecified type 03/04/2024 1:53 PM EDT - 03/04/2024 3:34 PM EDT Emergency [facility] Emergency [address] [place] [phone] Enrique Moyer MD Discharge Disposition: Home or Self Care from Last 3 Months Surgical History Surgery Date Site/Laterality Comments OTHER SURGICAL HISTORY PROCEDURE:pvc abalation TOTAL KNEE ARTHROPLASTY Right PROCEDURE:REPLACEMENT TOTAL KNEE BUNIONECTOMY PROCEDURE:BUNIONECTOMY DISC REMOVAL PROCEDURE:DISC REMOVAL SHOULDER SURGERY PROCEDURE:SHOULDER SURGERY OTHER SURGICAL HISTORY PROCEDURE:thumb surgery APPENDECTOMY PROCEDURE:APPENDECTOMY TONSILLECTOMY PROCEDURE:TONSILLECTOMY Medical History Medical History Date Comments Hypertension DX:Hypertension A-fib (CMS/HCC) DX:A-fib (HCC) Cardiac microvascular disease DX :Cardiac microvascular disease Hyperlipidemia DX:Hyperlipidemi a Family History Medical History Relation Name Comments [...] file Not on file Not on file Obstetrics History Last Filed Vital Signs Vital Sign Reading Time Taken Comments Blood Pressure 140/70 05/27/2024 11:58 AM EST Pulse 80 04/14/2024 1:12 PM EST Temperature 36.7 ??C (98 ??F) 04/06/2024 8:30 AM EST Respiratory Rate 12 04/06/2024 11:13 AM EST Oxygen Saturation 97% 04/14/2024 1:12 PM EST Inhaled Oxygen Concentration - - Weight 52.6 kg (116 lb) 05/27/2024 11:58 AM EST Height 160 cm (5' 3 ) 05/27/2024 11:58 AM EST Body Mass Index 20.55 05/27/2024 11:58 AM EST Plan of Treatment Upcoming Encounters Date Type Department Care Team (Late st Contact Info) Description 06/10/2024 1:30 PM EST Consult [facility] Cardiology [facility] [address] [facility] [address] [place] [address] Richard Santamaria MD [address] [place] [address] 07/28/2024 8:50 AM EDT Office Visit [facility] Cardiology [facility] - [facility] [address] [place] [address] Ziggy Ventura MD [address] [place] [address] [address] [place] [address] Health Maintenance Due Date Last Done Comments Breast Cancer Screening 1960 DTaP,Tdap,and Td Vaccines (1 - Tdap) 01/09/1979 Cervical Cancer Screening: P ap Smear 01/09/1981 Zoster Vaccines (2 of 2) 02/02/2018 12/08/2017 RSV Immunization Patients 60 + Years Old (1 - Risk 60-74 years 1-dose series) 2020 Cholesterol Screening (Lipid Panel) 04/12/2022 Colorectal Cancer Screening: Colonoscopy 04/12/2022 HIV Screening 04/12/2022 Hepatitis C Screening 04/12/2022 Medicare Annual Wellness Visit 04/12/2022 Social Influencers of Health Screening 04/12/2022 COVID-19 Vaccine (3 - 2023-2 5 season) 2024 09/14/2021, 12/13/2020 Influenza Vaccine (#1) 2024 03/12/2016 Depression Screening 01/26/2025 01/27/2024 Hypertension/CHF/CAD Annual BMP Blood Test 04/05/2025 04/05/2024 HIB Vaccines Aged Out No longer eligi ble based on patient's age to complete this topic HPV Vaccines Aged Out No longer eligi ble based on patient's age to complete this topic Hepatitis A Vaccines Aged Out No long er eligible based on patient's age to complete this topic Hepatitis B Vaccines Aged Out No long er eligible based on patient's age to complete this topic IPV Vaccines Aged Out No longer eligi ble based on patient's age to complete this topic MMR Vaccines Aged Out No longer eligi ble based on patient's age to complete this topic Meningococcal ACWY Vaccine Aged Out N o longer eligible based on patient's age to complete this topic Pneumococcal Vaccine: Pediatrics (0 to 5 Years) and At-Risk Patients (6 to 64 Years) Aged Out No longer eligible b ased on patient's age to complete this topic RSV Immunization Patients Under 20 months Aged Out No longer eligible b ased on patient's age to complete this topic Varicella Vaccines Aged Out No longer eligible based on patient's age to complete this topic Procedures Procedure Name Priority Date/Time Associated Diagnosis Comments TRANSTHORACIC ECHOCARDIOGRAM (TTE) COMPLETE Routine 05/27/2024 11:59 AM EST Shortness of breath Chest pain, unspecified type CARDIAC HOLTER MONITOR (REPORT GENERATED IN HOUSE) Routine 05/06/2024 10:46 AM EST PAF (paroxysmal atrial fibrillation) (CMS/HCC) Dizziness PVC's (premature ventricular contractions) ECG 12-LEAD Routine 04/14/2024 3:38 PM EST PAF (paroxysmal atrial fibrillation) (CMS/HCC) ECG 12-LEAD STAT 04/05/2024 11:04 PM EST TROPONIN I HIGH SENSITIVITY STAT 04/05/2024 4:18 PM EST XR CHEST 2 VIEWS STAT 04/05/2024 3:14 PM EST CBC WITH AUTO DIFFERENTIAL STAT 04/05/2024 2:46 PM EST B-TYPE NATRIURETIC PEPTIDE STAT 04/05/2024 2:46 PM EST MAGNESIUM STAT 04/05/2024 2:46 PM EST LIPASE STAT 04/05/2024 2:46 PM EST COMPREHENSIVE METABOLIC PANEL STAT 04/05/2024 2:46 PM EST CBC AND DIFFERENTIAL STAT 04/05/2024 2:46 PM EST TROPONIN I HIGH SENSITIVITY STAT 04/05/2024 2:46 PM EST ECG 12-LEAD STAT 04/05/2024 2:07 PM EST ECG ANNOTATED 04/05/2024 ECG OUTSIDE 04/05/2024 ECG ANNOTATED 04/05/2024 NM LEXISCAN STRESS TEST W/ MYOCARDIAL PERFUSION Routine 03/25/2024 4:05 PM EST Chest pain, unspecified ECG 12-LEAD Routine 03/10/2024 8:41 AM EST Shortness of breath ELECTROCARDIOGRAM Routine 03/04/2024 8:[address] CHEST ROUTINE 2 VIEWS Routine 024 2:24 PM EDT ECG 03/04/2024 from Last 3 Months Results * (ABNORMAL) TRANSTHORACIC ECHOCARDIOGRAM (TTE) COMPLETE (05/27/2024 11:59 AM EST) Left Atrium Minor [place] 5.3 cm CV PACS Left Atrium Major Needham 4.3 cm CV PACS LA Area Sys [...] adequate. Ziggy Ventura MD CV ECHO PROCEDURES * CARDIAC HOLTER MONITOR (REPORT GENERATED IN HOUSE) (05/06/2024 10:46 AM EST) Anatomical Region Laterality Modality Cardiac Diagnost ic Narrative 05/14/2024 1:21 PM EST [facility] DI[facility]NOSTIC [facility]ING DEPARTMENT [address] [place] [address], [id number], [place] [address] TEL: FAX: Type of Test: 48 Hour Holter Monitor Date of Test: 05/06/2024 Ordering Provider: Kimberly Abreu NP Reason for Test: Paroxysmal Atrial Fibrillation, Dizziness, PVC's (premature ventricular contractions) Impression: 1. ??Predominant rhythm was sinus rhythm. ??The heart rate ranges from 83 to 108 bpm. 2. ??Rare PACs, aberrant beats and atrial pairs. 3. ??Frequent PVCs and aberrantly conducted beats noted. ??Rare ventricular couplets and ventricular trigeminy's. ??Overall PVC burden is 2.9%. 4. ??No significant pauses noted. ??Longest RR interval was 1.0 seconds at 8.2 7 PM. 5. ??The diary returned with palpitations, lightheadedness, chest pain and nausea. ??EKG at this time showed normal sinus rhythm and isolated PVCs. ?? Kimberly Abreu NP CV CARDIAC SERVICES PROCEDURES * ECG 12 lead (04/14/2024 3:38 PM EST) Only the most recent of4 resultswithin the time period is included. [facility] Ventricular Rate ECG 80 BPM GEMUSE Atrial Rate 80 BPM GEMUSE P-R Interval 190 ms GEMUSE QRS Duration 80 ms GEMUSE Q-T Interval 374 ms GEMUSE QTc 431 ms GEMUSE P Wave Needham 70 degrees GEMUSE R [place] 58 degrees GEMUSE T [place] 72 degrees GEMUSE ECG Interpretation Sinus rhythm with occasional Premature ventricular complexes Otherwise normal ECG When compared with ECG of 05-APR-2024 23:04, Premature ventricular complexes are now Present Confirmed by GABBIE GREEN ([id number]) on 04/14/2024 4:30:39 PM GEMUSE 04/14/2024 1:21 PM EST 04/14/2024 4:30 PM EST Kimberly Abreu NP ECG ORDERABLES GEMUSE * Troponin I high sensitivity (04/05/2024 4:18 PM EST) Only the most recent of2 resultswithin the time period is included. [facility] High Sensitivity Troponin I 8 <=54 ng/L LAB CHEMISTRY METHOD 04/05/2024 4:54 PM EST [facility] Blood Venous blood specimen / Unknown Venipuncture / Unknown 04/05/2024 4:18 PM EST 04/05/2024 4:25 PM EST Narrative [facility] - 04/05/2024 4:54 PM EST High levels of biotin in samples may falsely decrease hsTroponin values. ??Use caution when interpreting hsTroponin results in patients taking biotin who exhibit renal impairment (eGFR <60) or in patients taking more than 20 mg/day of biotin. Enrique Moyer MD LAB BLOOD ORDERABLE S [facility] [address] [place] [address], * XR Chest 2 Views (04/05/2024 3:14 PM EST) Anatomical Region Laterality Modality Body Radiographic Margi ging 04/05/2024 3:16 PM EST Impressions 04/05/2024 3:18 PM EST Impression: No active pulmonary process identified. No significant change. -------- FINAL REPORT -------- Dictated By: Ayanna Tinoco Dictated Date: 04/05/2024 15:16 ET Assigned Physician: Ayanna Tinoco Reviewed and Electronically Signed By: Ayanna Tinoco Signed Date: 04/05/2024 15:18 ET Workstation ID: [id number] Transcribed By: Self Edit Transcribed Date: 04/05/2024 15:16 ET Narrative 04/05/2024 3:18 PM EST History: Chest pain. Comparison: 03/04/24, 11/09/21 Findings: PA and lateral views. The cardiac silhouette remains normal in size. Hilar contours and pulmonary vascularity are within normal limits. The lungs are clear. The costophrenic angles are sharp. Thoracic disc degenerative changes are again seen. Cholecystectomy clips are noted. Cervical spine surgical hardware is noted, consistent with prior anterior discectomy and fusion. There are bilateral glenohumeral arthritic changes. Procedure Note Ayanna Tinoco MD - 04/05/2024 History: Chest pain. Comparison: 03/04/24, 11/09/21 Findings: PA and lateral views. The cardiac silhouette remains normal in size. Hilarcontours and pulmonary vascularity are within normal limits. The lungs areclear. The costophrenic angles are sharp. Thoracic disc degenerative changes are again seen. Cholecystectomy clipsare noted. Cervical spine surgical hardware is noted, consistent withprior anterior discectomy and fusion. There are bilateral glenohumeralarthritic changes. IMPRESSION: Impression: No active pulmonary process identified. No significant change. -------- FINAL REPORT -------- Dictated By: Ayanna Tinoco Dictated Date: 04/05/2024 15:16 ET Assigned Physician: Ayanna Tinoco Reviewed and Electronically Signed By: Ayanna Tinoco Signed Date: 04/05/2024 15:18 ET Workstation ID: [id number] Transcribed By: Self Edit Transcribed Date: 04/05/2024 15:16 ET Enrique Moyer MD IMG XR PROCEDURES * (ABNORMAL) CBC auto differential (04/05/2024 2:46 PM EST) WBC 3.8(L) 4.8 - 10.8 K/mcL LAB HEMETOLOGY METHOD 04/05/2024 3:10 PM [facility] RBC 3.90 3.80 - 4.80 M/mcL LAB HEMETOLOGY METHOD 04/05/2024 3:10 PM [facility] Hemoglobin 12.3 11.5 - 16.0 g/dL LAB HEMETOLOGY METHOD 04/05/2024 3:10 PM [facility] Hematocrit 37.2 35.0 - 47.0 % LAB HEMETOLOGY METHOD 04/05/2024 3:10 PM [facility] MCV 95.1 79.0 - 98.0 FL LAB HEMETOLOGY METHOD 04/05/2024 3:10 PM [facility] MCH 31.5 27.0 - 32.0 pcg LAB HEMETOLOGY METHOD 04/05/2024 3:10 PM [facility] MCHC 33.1 32.0 - 37.0 g/dL LAB HEMETOLOGY METHOD 04/05/2024 3:10 PM [facility] RDW 13.4 11.0 - 15.0 % LAB HEMETOLOGY METHOD 04/05/2024 3:10 PM [facility] Platelets 263 130 - 400 K/mcL LAB HEMETOLOGY METHOD 04/05/2024 3:10 PM [facility] MPV 9.9 7.0 - 11.0 FL LAB HEMETOLOGY METHOD 04/05/2024 3:10 PM [facility] NRBC 0.0 <1.0 % LAB HEMETOLOGY METHOD 04/05/2024 3:10 PM [facility] NRBC Absolute 0.00 <0.10 K/mcL LAB HEMETOLOGY METHOD 04/05/2024 3:10 PM [facility] Neutrophils Relative 41.1 % LAB HEMETOLOGY METHOD 04/05/2024 3:10 PM [facility] Lymphocytes Relative 47.0 % LAB HEMETOLOGY METHOD 04/05/2024 3:10 PM [facility] Monocytes Relative 9.2 % LAB HEMETOLOGY METHOD 04/05/2024 3:10 PM [facility] Eosinophils Relative 1.6 % LAB HEMETOLOGY METHOD 04/05/2024 3:10 PM [facility] Basophils Relative 0.8 % LAB HEMETOLOGY METHOD 04/05/2024 3:10 PM [facility] Immature Granulocytes Relative 0.3 % LAB HEMETOLOGY METHOD 04/05/2024 3:10 PM [facility] Neutrophils Absolute 1.56 1.50 - 7.00 K/mcL LAB HEMETOLOGY METHOD 04/05/2024 3:10 PM EST [facility] Lymphocytes Absolute 1.78 1.00 - 5.00 K/mcL LAB HEMETOLOGY METHOD 04/05/2024 3:10 PM EST [facility] Monocytes Absolute 0.35 0.20 - 1.00 K/mcL LAB HEMETOLOGY METHOD 04/05/2024 3:10 PM EST [facility] Eosinophils Absolute 0.06 0.00 - 0.50 K/[facility] LAB HEMETOLOGY METHOD 04/05/2024 3:10 PM EST [facility] Basophils Absolute 0.03 0.00 - 0.20 K/[facility] LAB HEMETOLOGY METHOD 04/05/2024 3:10 PM EST [facility] Immature Granulocytes Absolute 0.01 0.00 - 0.03 K/[facility] LAB HEMETOLOGY METHOD 04/05/2024 3:10 PM EST [facility] Blood Venous blood specimen / Unknown Venipuncture / Unknown 04/05/2024 2:46 PM EST 04/05/2024 2:59 PM EST Enrique Moyer MD LAB BLOOD ORDERABLE S [facility]) [facility] [address] [place] [address], * B-type natriuretic peptide (04/05/2024 2:46 PM EST) BNP 38 <=100 pcg/mL LAB CHEMISTRY METHOD 04/05/2024 3:32 PM EST [facility] Blood Venous blood specimen / Unknown Venipuncture / Unknown 04/05/2024 2:46 PM EST 04/05/2024 2:59 PM EST Enrique Moyer MD LAB BLOOD ORDERABLE S Performing Organization Address [facility]/ZIP Vt de Phone Number [facility] [address] [place] [address], * Magnesium (04/05/2024 2:46 PM EST) [facility] Magnesium 2.1 1.9 - 2.6 mg/dL LAB CHEMISTRY METHOD 04/05/2024 3:26 PM EST [facility] Blood Venous blood specimen / Unknown Venipuncture / Unknown 04/05/2024 2:46 PM EST 04/05/2024 2:59 PM EST Enrique Moyer MD LAB BLOOD ORDERABLE S Performing Organization Address [facility] Co de Phone Number [facility] [address] [place] [address], * Lipase (04/05/2024 2:46 PM EST) [facility] Lipase 26 13 - 75 unit/L LAB CHEMISTRY METHOD 04/05/2024 3:26 PM EST [facility] Blood Venous blood specimen / Unknown Venipuncture / Unknown 04/05/2024 2:46 PM EST 04/05/2024 2:59 PM EST Enrique Moyer MD LAB BLOOD ORDERABLE S Performing Organization Address [facility]/ZIP Co de Phone Number [facility] [address] [place] [address], [place] [phone] * (ABNORMAL) Comprehensive metabolic panel (04/05/2024 2:46 PM EST) [facility] Sodium 145 133 - 145 mmol/L LAB CHEMISTRY METHOD 04/05/2024 3:28 PM EST [facility] Potassium 3.8 3.5 - 5.5 mmol/L LAB CHEMISTRY METHOD 04/05/2024 3:28 PM EST [facility] Chloride 111(H) 96 - 110 mmol/L LAB CHEMISTRY METHOD 04/05/2024 3:28 PM [facility] CO2 26 21 - 32 mmol/L LAB CHEMISTRY METHOD 04/05/2024 3:28 PM [facility] Anion Gap 8 3 - 11 LAB CHEMISTRY METHOD 04/05/2024 3:28 PM [facility] Glucose 84 70 - 100 mg/dL LAB CHEMISTRY METHOD 04/05/2024 3:28 PM [facility] BUN 9 5 - 25 mg/dL LAB CHEMISTRY METHOD 04/05/2024 3:28 PM [facility] Creatinine 0.63 0.50 - 1.10 mg/dL LAB CHEMISTRY METHOD 04/05/2024 3:28 PM [facility] eGFR 99 >=60 mL/min/1. 73m2 LAB CHEMISTRY METHOD 04/05/2024 3:28 PM [facility] Comment:Calculation based on the??Chronic Kidney Disease Epidemiology Collaboration (CKD-EPI) equation refit??without adjustment for race. BUN/Creatinine Ratio 14.3 LAB CHEMISTRY METHOD 04/05/2024 3:28 PM [facility] Calcium 9.5 8.5 - 10.5 mg/dL LAB CHEMISTRY METHOD 04/05/2024 3:28 PM [facility] AST (SGOT) 24 10 - 42 unit/L LAB CHEMISTRY METHOD 04/05/2024 3:28 PM [facility] ALT (SGPT) 19 10 - 60 unit/L LAB CHEMISTRY METHOD 04/05/2024 3:28 PM [facility] Alkaline Phosphatase 65 42 - 121 unit/L LAB CHEMISTRY METHOD 04/05/2024 3:28 PM [facility] Total Protein 6.6 6.0 - 8.0 g/dL LAB CHEMISTRY METHOD 04/05/2024 3:28 PM [facility] Albumin 3.7 3.2 - 5.0 g/dL LAB CHEMISTRY METHOD 04/05/2024 3:28 PM EST [facility] Total Bilirubin 0.6 0.0 - 1.4 mg/dL LAB CHEMISTRY METHOD 04/05/2024 3:28 PM EST [facility] Blood Venous blood specimen / Unknown Venipuncture / Unknown 04/05/2024 2:46 PM EST 04/05/2024 2:59 PM EST Enrique Moyer MD LAB BLOOD ORDERABLE S [facility] [address] [place] [address], * ECG-Outside (04/05/2024) Provider Onbase MD ECG ORDERABLES * ECG-Annotated (04/05/2024) Only the most recent of2 resultswithin the time period is included. Provider Onbase MD ECG ORDERABLES * NM LEXISCAN STRESS TEST W/ MYOCARDIAL PERFUSION (03/25/2024 4:05 PM EST) Exercise/injec tion duration (min) 0 CV PACS STRESS Exercise/injec tion duration (sec) 48 CV PACS STRESS Peak SBP 133 mmHg CV PACS STRESS Peak DBP 83 mmHg CV PACS STRESS Peak HR 116 bpm CV PACS STRESS Baseline HR 74 bpm CV PACS STRESS Baseline SBP 111 mmHg CV PACS STRESS Baseline DBP 70 mmHg CV PACS STRESS Estimated workload 1.0 METS CV PACS STRESS Percent HR 74 % CV PACS STRESS Rate Pressure Product 15,428.0 mmHg*bpm CV PACS STRESS Target HR 133 bpm CV PACS STRESS TID 1.18 CV PACS STRESS Nuc Stress EF 68 % CV PAC S STRESS Nuc Rest EF 67 % CV PACS STRESS BSA 1.55 m2 CV PACS STRESS Anatomical Region Laterality Modality Nuclear Medicine 03/25/2024 2:59 PM EST 03/25/2024 3:40 PM EST Impressions 03/29/2024 9:32 AM EST Abnormal Regadenoson stress test with nuclear imaging. ?? Nuclear imaging revealed a medium size, moderate severity, largely reversible perfusion defect of the mid to apical anteroseptum, anterior apical and apical burns consistent with ischemia. There is a normal TID ratio. Gated SPECT imaging was performed and revealed an LVEF of 67 %. Narrative 03/29/2024 9:32 AM EST Nuclear imaging of the left ventricle shows a normal cavity size. Myocardial perfusion imaging of the left ventricle reveals a medium size, moderate severity, largely reversible perfusion defect of the mid to apical anteroseptum, anterior apical and apical burns. Gated SPECT imaging was performed which demonstrated normal left ventricular systolic function. The calculated LVEF is 67 %. TID ratio is normal. Stress Findings A pharmacological stress test was performed using regadenoson, 0.4 mg IV over 10-15 seconds, followed by radiopharmacological injection 10 seconds post infusion. Total stress time was 0 min and 48 sec. The patient reached the end of the protocol. No low level exercise was used during pharmacological stress test. Reversal medication aminophylline (50 mg) given. Blood pressure demonstrated a normal response. Heart rate demonstrated a normal response. Patient reported heaviness in her legs, dyspnea and dizziness that resolved with 50 mg aminophylline IVP. ECG 64 year old female with complaints of fatigue, shortness of breath and atypical chest pain. The ECG shows normal sinus rhythm. The ECG axis is normal. The baseline ECG has early repolarization. Q waves present in leads II, III, aVF, V5, V6. Arrhythmias during stress: occasional premature ventricular contractions (PVCs) . Arrhythmias during recovery: occasional premature ventricular contractions (PVCs). Nuclear Study Quality Study technique: MPI, SPECT, multi, rest and stress, 1 day. Overall image quality is good. CT attenuation correction was utilized. No radiopharmaceutical dose was extravasated. Stress Function Comments Stress ejection fraction is 68%. Rest Function Comments Resting ejection fraction was 67%. Enrique Moyer MD CV STRESS PROCEDURE S * Electrocardiogram (03/04/2024 8:10 PM EDT) 03/04/2024 1:03 PM EDT Narrative CV HISTORICAL RESULTS - 03/04/2024 8:10 PM EDT [facility] Cardiology Department [address] [place] [address] ?? [id number] Cardiology Patient: ?? DANIELLE DENTON Unit #: ?? [id number] Location: ?? SPER Status: ?? REG ER Date Of : ?? 1960 ?? 64 ?? F Ordering Physician: ?? ER,DOC Order Date/Time: ??03/04/24 1303 Performed Date/Time: ??03/04/24 1310 Electrocardiogram Test Reason : Shortness of Breath Blood Pressure : / mmHG Vent. Rate : 075 BPM ? Atrial Rate : 075 BPM P-R Int : 192 ms ?QRS Dur : 086 ms QT Int : 374 ms ? P-R-T Axes : 053 026 050 degrees QTc Int : 417 ms Normal sinus rhythm Normal ECG When compared with ECG of 08-FEB-2022 15:34, Premature ventricular complexes are no longer Present Confirmed by Arcadio FOY JAMES ([id number]) on 03/04/2024 8:09:42 PM Referred By: ??ERDOC ? Confirmed By:SMILEY FOY M.D. Dictating Provider: ??SMILEY FOY MD Transcribed by: ?? KENNETH Transcribed Date: Procedure Note Smiley Foy MD - 03/06/2024 [facility] Cardiology Department [address] [place] [id number] Cardiology Patient: DANIELLE DENTON Unit #: [id number] Location: SPER Status: REG ER Date Of : 1960 64 F Ordering Physician: DONELLDOC Order Date/Time: 03/04/24 1303 Performed Date/Time: 03/04/24 1310 Electrocardiogram Test Reason : Shortness of Breath Blood Pressure : / mmHG Vent. Rate : 075 BPM Atrial Rate : 075 BPM P-R Int : 192 ms QRS Dur : 086 ms QT Int : 374 ms P-R-T Axes : 053 026 050 degrees QTc Int : 417 ms Normal sinus rhythm Normal ECG When compared with ECG of 08-FEB-2022 15:34, Premature ventricular complexes are no longer Present Confirmed by Arcadio FOY JAMES ([id number]) on 03/04/2024 8:09:42 PM Referred By: JONI Confirmed By:SMILEY FOY M.D. Dictating Provider: SMILEY FOY MD Transcribed by: KENNETH Transcribed Date: Cardiovascular Results Historical CV HISTORICAL CONV PROCEDURES CV HISTORICAL RESULTS * CHEST ROUTINE 2 VIEWS (03/04/2024 2:24 PM EDT) Anatomical Region Laterality Modality Radiographic Margi ging 03/04/2024 1:03 PM EDT Narrative 03/04/2024 2:24 PM EDT [facility] Diagnostic Imaging Department [address] [place] [id number] Patient: ??DANIELLE DENTON ?/Age/Sex: 1960 - 64 - F Unit#: ??[id number] ? Location/Status: ??SPER/REG ER ? Mnemonic/Ordering Site: ??CHESTXR/SPMAIN Ordering Physician: ??ER,DOC Chest Routine 2 Views - 03/04/24 - 3813 Report Status:Signed EXAMINATION: Chest 2 views. CLINICAL INDICATION: Generalized weakness and dizziness, SOB and chest pain. COMPARISON: Chest portable 02/08/2022 FINDINGS: The lungs are well-expanded and clear. The heart size and pulmonary vascularity is normal. There is moderate spondylosis of spine. No aggressive lytic or sclerotic process seen. IMPRESSION: Unremarkable chest exam Dictating Physician: ??TATI SIMMONS Electronically Signed by: ??TATI SIMMONS Dic Date/Time: ??03/04/241421 Sign date/Time: ??03/04/241423 Procedure Note Tati Simmons MD - 03/06/2024 [facility] Diagnostic Imaging Department [address] [place] [address] [id number] Patient: JOVANNADANIELLE./Age/Sex: 1960 - 64 - F Unit#: [id number] Location/Status: SPER/REG ER Mnemonic/Ordering Site: CHESTXR/SPMAIN Ordering Physician: ER,DOC DR Chest Routine 2 Views - 03/04/24 - 140 Report Status:Signed EXAMINATION: Chest 2 views. CLINICAL INDICATION: Generalized weakness and dizziness, SOB and chestpain. COMPARISON: Chest portable 02/08/2022 FINDINGS: The lungs are well-expanded and clear. The heart size andpulmonary vascularity is normal. There is moderate spondylosis of spine. Noaggressive lytic or sclerotic process seen. 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
--- OUTSIDE RECORDS SUMMARY | 2024-06-01 14:59 | XMS_ITS ---
Author Organization [facility] Address [address] [place] [address] Care Team Providers Care Processing Spec Name Role Phone Gustavo Suarez MD Primary Care Provider Unavail Magen Castro Unavailable [phone] REASON FOR VISIT Issue with boot Encounters Encounter [facility] Date [facility] [address] [place] [phone] 12/09/2023 Magen Acevedo Plan Of Treatment No Information Progress Notes * JOVANNAJoselineDOB:[birth year] (63 yo F)Acc No.[id number]:12/09/2023 Patient:?Ying Denton :1960???Age:63 Y???Sex:Female Address:[place] [address] * true * Date:? Generated for Kristeni aldair/Sierra/eTransmitting on:?06/01/2024 02:58 PM EST
--- OUTSIDE RECORDS SUMMARY | 2024-06-01 14:59 | XMS_ITS | Patient Health Record ---
Author Organization Gustavo Suarez DO, FACP Address [address] [place] [phone] Care Team Providers Care Supervisor Remelt Name Role Phone Gustavo Suarez Primary Care Provider [phone] ALLERGIES Allergen (clinical drug ingredient) Drug/Non Drug Allergy documented on EMR Reaction Allergy Type Onset Date Status penicillin V Penicillin V Potassium urticaria Drug Allergy Active RESULTS Component Value Reference Range Notes FL barium swallow modified Reviewed date:07/01/2023 05:31:24 PM Interpretation:Abnormal Performing Lab: Notes/Report: [address] [address] Fluoroscopy Report Signed Patient: Ying Denton MR#: [id number] : 1960 Acct:[id number] Age/Sex: 63 / F ADM Date: 06/30/23 Loc: HO.XRAY Attending Dr: Gustavo Suarez DO Ordering Physician: Gustavo Suarez DO Date of Service: 06/30/23 Procedure(s): FL barium swallow modified Accession Number(s): [id number] cc: Gustavo Suarez DO EXAMINATION: Modified Barium [...] in OV> 07/01/23 1723 DD/ 1425 TD/TT: Supervisor Alum Plant: Complete Blood Count Auto Di ff Reviewed date:07/01/2023 02:24:05 PM Interpretation:Abnormal Performing Lab:[facility], [address] [place] [phone] Notes/Report: White Blood Count 3.6 4.8-10.8 X10*3/uL [...] NRBC Abs Auto 0.000 0.0-0.012 X10*3/uL Comprehensive Orient. Panel Fa st Reviewed date:07/01/2023 02:24:05 PM Interpretation:Normal Performing Lab:[facility], [address] [place] [phone] Notes/Report: Sodium 141 135-145 mmol/L Potassium 4.1 3.3-5.1 mmol/L Chloride 107 96-108 mmol/L Carbon Dioxide 27 22-29 mmol/L Anion Gap 11 12-20 Blood Urea Nitrogen 10 9-16 mg/dL Creatinine 0.72 0.5-1.4 mg/dL Estimated Glomerular Filt Rate > 60 NOTE: For -Liberian individuals, multiply the result by 1.210. Chronic [...] Panel Reviewed date:07/01/2023 02:24:05 PM Interpretation:Abnormal Performing Lab:[facility], [address] [place] [phone] Notes/Report: Triglycerides 110 <150 mg/dL Desirable Triglyceride: [...] Hormone Reviewed date:07/01/2023 02:24:05 PM Interpretation:Normal Performing Lab:[facility], [address] [place] [phone] Notes/Report: Thyroid Stimulating Hormone 0.50 0.32-4.0 uIU/ mL TSH 3rd Generation ([facility]) Complete Blood Count Auto Di ff Reviewed date:07/17/2023 04:17:23 PM Interpretation:Abnormal Performing Lab:[facility], [address] [place] [phone] Notes/Report: White Blood Count 5.0 4.8-10.8 X10*3/uL [...] Panel Reviewed date:07/17/2023 04:17:23 PM Interpretation:Normal Performing Lab:[facility], [address] [place] [phone] Notes/Report: Sodium 142 135-145 mmol/L Potassium 3.6 [...] Glomerular Filt Rate > 60 NOTE: For -Liberian individuals, multiply the result by 1.210. Chronic [...] Lipase Reviewed date:07/17/2023 04:17:23 PM Interpretation:Normal Performing Lab:[facility], [address] [place] [phone] Notes/Report: Lipase 19 8-78 U/L UA CC w/rflx Micro + Cult Reviewed date:07/17/2023 04:17:23 PM Interpretation:Negative Performing Lab:[facility], [address] [place] [phone] Notes/Report: [id number] Urine, Clean Catch Color Urine Yellow Appearance Urine Clear PH 7.0 5.0-9.0 Glucose Urine UA Negative Negative mg/dL Urine Blood Negative Negative Specific [place] - Urine 1.010 1.005-1.025 Urine Protein Negative Neg-Trace mg/dL Urine Ketones Negative Negative mg/dL Nitrite Urine Negative Negative Leukocyte Esterase Urine Negative Negative CT sinus wo con Reviewed date:09/17/2023 05:59:59 PM Interpretation:Abnormal Performing Lab: Notes/Report: [address] [address] [address] Scan Report Signed Patient: Ying Denton MR#: [id number] : 1960 Acct:[id number] Age/Sex: 63 / F ADM Date: 08/29/23 Loc: HO.CT Attending Dr: Salvador Jovel Ordering Physician: Salvador Jovel Date of Service: 08/29/23 Procedure(s): CT sinus wo IV con Accession Number(s): [id number] cc: Gustavo Suarez DO; Salvador Jovel CT [...] MD in OV> 09/16/231951 DD/ 1 TD/TT: Supervisor Alum Plant: Free T4 (Free Thyroxine) Reviewed date:11/27/2023 05:33:13 PM Interpretation:Normal Performing Lab:[facility], [address] [place] [phone] Notes/Report: Free T4 (Free Thyroxine) 0.94 0.71-1.85 ng/dL Complete Blood Count Auto Di ff Reviewed date:11/27/2023 05:33:37 PM Interpretation:Abnormal Performing Lab:[facility], [address] [place] [phone] Notes/Report: White Blood Count 4.0 4.8-10.8 X10*3/uL [...] NRBC Abs Auto 0.000 0.0-0.012 X10*3/uL Comprehensive Orient. Panel Fa st Reviewed date:11/27/2023 05:33:13 PM Interpretation:Normal Performing Lab:[facility], [address] [place] [phone] Notes/Report: Sodium 142 135-145 mmol/L Potassium 4.8 3.3-5.1 mmol/L Chloride 106 96-108 mmol/L Carbon Dioxide 28 22-29 mmol/L Anion Gap 13 12-20 Blood Urea Nitrogen 13 9-16 mg/dL Creatinine 0.78 0.5-1.4 mg/dL Estimated Glomerular Filt Rate > 60 NOTE: For -Liberian individuals, multiply the result by 1.210. Chronic [...] Panel Reviewed date:11/27/2023 05:33:13 PM Interpretation:Normal Performing Lab:[facility], [address] [place] [phone] Notes/Report: Triglycerides 141 <150 mg/dL Desirable Triglyceride: [...] Total Reviewed date:11/27/2023 05:33:13 PM Interpretation:Normal Performing Lab:[facility], [address] [place] [phone] Notes/Report: Vitamin D 25-OH Total 55.9 >30 [...] Hormone Reviewed date:11/27/2023 05:35:27 PM Interpretation:Abnormal Performing Lab:[facility], [address] [place] [phone] Notes/Report: Thyroid Stimulating Hormone 0.19 0.32-4.0 uIU/ mL TSH 3rd Generation ([facility]) Triiodothyronine T3 Free Reviewed date:11/29/2023 11:45:49 AM Interpretation:Normal Performing Lab:[address] [phone] Notes/Report: Triiodothyronine T3 Free 3.5 2.3-4.2 pg/mL THIS TEST WAS PERFORMED AT: [facility] [address] [phone] AKSHAT PAINTER MD Liver Panel Reviewed date:12/18/2023 06:56:21 PM Interpretation:Normal Performing Lab:[facility], [address] [place] [phone] Notes/Report: Bilirubin Total 0.6 0.0-1.0 mg/dL Bilirubin Direct 0.2 0.0-0.5 mg/dL Aspartate Amino Transferase 22 5-31 U/L Alanine Aminotransferase 12 0-31 U/L Total Protein 7.0 6.5-8.0 g/dL Albumin Level 4.2 3.5-5.0 g/dL Alkaline Phosphatase 62 39-117 U/L Basic Metabolic Panel Reviewed date:12/18/2023 06:56:21 PM Interpretation:Normal Performing Lab:[address] [phone] Notes/Report: Sodium 139 135-145 mmol/L Potassium 4.3 3.3-5.1 mmol/L Chloride 107 96-108 mmol/L Carbon Dioxide 27 22-29 mmol/L Anion Gap 9 12-20 Blood Urea Nitrogen 10 9-16 mg/dL Creatinine 0.69 0.5-1.4 mg/dL Estimated Glomerular Filt Rate > 60 NOTE: For -Liberian individuals, multiply the result by 1.210. Chronic Kidney Disease: Estimated GFR < 60 mL/min/1.73m2 Severe Kidney Disease: Estimated GFR < 15 mL/min/1.73m2 Glucose Random 85 60-115 mg/dL Calcium 8.9 8.4-10.2 mg/dL C Reactive Protein Reviewed date:12/18/2023 06:56:21 PM Interpretation:Normal Performing Lab:[facility], [address] [place] [phone] Notes/Report: C Reactive Protein < 0.10 < or = 0.50 mg/dL T4 Thyroxine Reviewed date:12/18/2023 06:56:21 PM Interpretation:Normal Performing Lab:[facility], [address] [place] [phone] Notes/Report: T4 Thyroxine 6.7 4.5-12.0 ug/dL Complete Blood Count Auto Di ff Reviewed date:12/18/2023 02:06:58 PM Interpretation:Abnormal Performing Lab:[facility], [address] [place] [phone] Notes/Report: White Blood Count 4.2 4.8-10.8 X10*3/uL [...] te Reviewed date:12/18/2023 02:06:40 PM Interpretation:Normal Performing Lab:[facility], [address] [place] [phone] Notes/Report: Erythrocyte Sedimentation Rate 6 0-20 MM/HR Patients with polycythemia and many hemoglobin abnormalities may have depressed sed rates whereas patients with anemia may have elevated sed rates. Thyroid Stimulating Hormone Reviewed date:12/18/2023 06:56:21 PM Interpretation:Normal Performing Lab:[facility], [address] [place] [phone] Notes/Report: Thyroid Stimulating Hormone 0.45 0.32-4.0 uIU/ mL TSH 3rd Generation ([facility]) Drug Screen Urine Reviewed date:03/08/2024 01:00:34 PM Interpretation:Negative Performing Lab:[facility], [address] [place] [phone] Notes/Report: Opiate Screen Urine Not Detected Not [...] Cult Reviewed date:03/08/2024 01:00:10 PM Interpretation:Negative Performing Lab:[facility], [address] [place] [phone] Notes/Report: 1027 Urine, Clean Catch Color Urine Yellow Appearance Urine Clear PH 8.0 5.0-9.0 Glucose Urine UA Negative Negative mg/dL Urine Blood Negative Negative Specific [place] - Urine 1.010 1.005-1.025 Urine Protein Negative Neg-Trace mg/dL Urine Ketones Negative Negative mg/dL Nitrite Urine Negative Negative Leukocyte Esterase Urine Negative Negative CT angio head neck stroke Reviewed date:03/08/2024 01:20:57 PM Interpretation:Abnormal Performing Lab: Notes/Report: [address] [address] [address] Scan Report Signed Patient: Ying Denton MR#: [id number] : 1960 Acct:[id number] Age/Sex: 64 / F ADM Date: 03/08/24 Loc: HO.ED Attending Dr: Ordering Physician: Char Rothman NP Date of Service: 03/08/24 Procedure(s): CT angio head neck stroke Accession Number(s): [id number] cc: Char Rothman NP EXAMINATION: CTA NECK [...] intimal flap. Superior cerebellar arteries are patent. electrical technician: Hypoplastic/atrophic right P1 segment. Normal patency without abrupt cut off. CT/CT angio head neck stroke IMPRESSION: No main cerebral artery occlusion or embolus. No high degree stenosis or dissection in the vessels of the neck. origin right PRODUCTION PAINTER. Concerning thyroid disease/multinodular goiter. This critical test result is communicated to: Emergency physician Dr. Char Rothman on March 08, 2024 at 11:10 AM. Electronically signed by: Roberto Pisano MD 03/08/2024 11:20 AM EST Dictated By: Roberto Max Signed By: <Electronically signed by Roberto Lawrence in OV> 03/08/24 1120 DD/ 1034 TD/TT: 03/08/24 1048 Supervisor Alum Plant: REASON FOR REFERRAL Reason Low TSH Level Diagnosis 1 Abnormal results of thyroid function studies (R94.6) Referral Organization Gustavo Barreto FACP Referring Provider First Name Gustavo Referring Provider Last Name Daniela Referring Provider Speciality Internal M edicine Referred Provider Jono Holm Referred Provider Specialty Endocrinolog y General Notes Sonja Sheikh 11:11:24 AM EDT > ADDITIONAL RECORDS TO FOLLOW BY SEPARATE FAX., Sonja Sheikh 08/08/2023 11:11:45 AM EDT > referral faxed; patient notified., Carolin Berrios 08/12/2023 09:30:33 AM EDT > Referral refaxed to [phone]. Referral Priority Routine Reason Paroxysmal atrial fi brillation Diagnosis 1 Paroxysmal atrial fi brillation (I48.0) Referral Organization Gustavo Barreto FACP Referring Provider First Name Gustavo Referring Provider Last Name Daniela Referring Provider Speciality Internal M edicine Referred Provider Ziggy Ventura Referred Provider Specialty Cardiology General Notes Sonja Sheikh 02:31:49 PM EDT > Referral for transfer of care from [facility] Sonja Sheikh 01/20/2024 02:58:25 PM EDT > referral faxed manually to ; patient will schedule this appointment., Carolin Berrios 02/09/2024 01:34:27 PM EDT > Referral refaxed to Referral Priority Routine Referral Appointment Date 03/10/2024 Reason Extreme dyspnea with any exertion Diagnosis 1 Dyspnea, unspecified (R06.00) Referral Organization Gustavo Barreto, FACP Referring Provider First Name Gustavo Referring [...] waiting for records from [facility] to book appointment. Referral Priority Routine MEDICATIONS [...] 20 MG TAKE 1 CAPSULE BY MO UT TWICE DAILY for 90 Active tiZANidine HCl 2 MG 1 tablet as needed Orally Twice a day Active Ergocalciferol 1.25 MG (43653 UT) 1 capsule Orally Once a week [...] current episode mixed, moderate (F31.62) Active confirmed 598754616 Problem Dystonia, unspecifie d (G24.9) Active confirmed Dystonia (69280503) Problem Unspecified visual l oss (H54.7) Active confirmed Visual difficulty (358789288) Problem Paroxysmal atrial fibrillation (I48.0) Active confirmed 344097934 Problem Precordial pain (R07.2) Active confirmed 52004103 Problem Epigastric pain (R10.13) Active confirmed 88176492 Problem Other lack of coordination (R27.8) Active confirmed Lack of coordination (378893832) Problem Restless leg syndrom e (G25.81) Active confirmed Restless legs syndrome (90429206) Problem Cervical radiculopat hy (M54.12) Active confirmed 19111916 Problem Ataxia (R27.0) Active confirmed Ataxia (01081112) Problem Hypercholesterolemia (E78.00) Active confirmed 47812348 Problem RLS (restless legs syndrome) (G25.81) Active confirmed 09065829 Problem Mixed stress and urg e urinary incontinence (N39.46) Active confirmed 182881973 Problem Thyromegaly (E01.0) Active confirmed 14 842576 Problem Coronary artery anom yi (Q24.5) Active confirmed 80754009 Problem Coronary artery spas m (I20.1) Active confirmed 47995035 Problem Postprandial vomitin g (R11.10) Active confirmed 350084010 Problem TIA (transient ische taylor attack) (G45.9) Active confirmed 980453846 VITAL SIGNS Temperature 97.6 degrees Fahrenheit 06/20/2023 Blood pressure diastolic 56 mm Hg 03/24/2024 Height 63 in 03/24/2024 Blood pressure systolic 102 mm Hg 03/24/2024 Weight 119 lbs 03/24/2024 BMI 21.08 kg/m2 03/24/2024 Encounters Encounter Location Date Provider Diagnosis Gustavo Suarez DO, [address] [id number] 07/02/2023 Gustavo Suarez DO, [address] [id number] 03/24/2024 Gustavo Suarez Coronary artery spas m I20.1 ; Bipolar disorder, current episode mixed, moderate F31.62 ; Paroxysmal atrial fibrillation I48.0 ; Mixed stress and urge urinary incontinence N39.46 ; Cervical radiculopathy M54.12 and Epigastric pain R10.13 Gustavo Suarez DO, [facility] [address] [place], [place] [id number] 11/25/2023 Gustavo Suarez Paroxysmal atrial fibrillation I48.0 ; Coronary artery spasm I20.1 ; Epigastric pain R10.13 ; Thyromegaly E01.0 ; Bipolar disorder, current episode mixed, moderate F31.62 ; Muscle spasm M62.838 ; Mixed stress and urge urinary incontinence N39.46 and Cervical radiculopathy M54.12 Gustavo Suarez DO, [facility] [address] [place], [place] [id number] 07/04/2023 Gustavo Suarez DO, [address] [id number] 08/08/2023 Gustavo Suarez DO, [address] [id number] 08/12/2023 Gustavo Suarez DO, [address] [id number] 10/21/2023 Gustavo Suarez DO, [address] [id number] 12/10/2023 Gustavo Suarez DO, [facility] [address] [place], [place] [id number] 12/17/2023 Gustavo Suarez Weight loss, uninten tional R63.4 Gustavo Suarez DO, [address] [id number] 01/20/2024 Gustavo Suarez DO, [address] [id number] 02/06/2024 Gustavo Suarez DO, [address] [id number] 03/05/2024 Gustavo Suarez DO, [address] [id number] 03/08/2024 Gustavo Suarez DO, [address] [id number] 03/12/2024 Gustavo Suarez DO, [address] [id number] 06/20/2023 Gustavo Suarez Bipolar disorder, cu rrent episode mixed, moderate F31.62 ; Mixed stress and urge urinary incontinence N39.46 ; Cervical radiculopathy M54.12 ; Coronary artery spasm I20.1 ; Paroxysmal atrial fibrillation I48.0 and Muscle spasm M62.838 Gustavo Suarez DO, [address] [id number] 09/19/2023 Gustavo Suarez Paroxysmal atrial fibrillation I48.0 ; Bipolar disorder, current episode mixed, moderate F31.62 ; Hypercholesterolemia E78.00 ; Coronary artery spasm I20.1 ; Muscle spasm M62.838 ; Mixed stress and urge urinary incontinence N39.46 and Cervical radiculopathy M54.12 Gustavo Suarez DO, [address] [id number] 07/14/2023 Gustavo Suarez ASSESSMENTS Encounter Date Diagnosis [...] Date Coverage End Date [employer] [address] [place] [phone] [id number] Ying Denton Self - patient is the insured MEDICARE [address] [place] [phone] [id number] Ying Denton Self - patient is the [...]
--- OUTSIDE RECORDS SUMMARY | 2024-06-01 14:59 | XMS_ITS ---
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 Name Role Phone Gustavo Suarez MD Primary Care Provider Unavail Magen Castro Unavailable [phone] Allergies Allergen (clinical drug ingredient) Drug/Non Drug Allergy documented on EMR Reaction Allergy Type Onset Date Status amoxicillin Amoxicillin rash Drug Allergy Act joel Penicillin rash Drug Allergy Active codeine Codeine stomach pain Drug Allergy Acti ve REASON FOR VISIT Foot pain Medications Medication SIG (Take, Route, Frequency, Duration) Notes Start Date End Date Status Methylphenidate 5mg once a day Active LaMICtal 300 mg 1 tablet Orally Once a day for 30 day(s) Active Gabapentin Active Estradiol 0.0375 MG/24HR 1 patch to skin Transdermal Two times a Week Active Nitroglycerin Active Atorvastatin Calcium Active Lorazepam Active Omeprazole Active Walking Boot/Pneumatic As directed Wear Daily for Until further notice Active Physical Therapy . . . 2-3x/week for 3-4 weeks 12/22/2023 Active Propranolol HCl 10 MG 1 tablet Orally Twice a day for 30 day(s) Not-Taking Gabapentin 400 MG 1 capsule Orally i po qd hs for 30 Not-Taking Physical Therapy . . . 2-3x/week for 3-4 weeks 05/20/2017 Not-Taking Voltaren 1 % as directed Externally Active Abilify 10 MG 1 tablet Orally Once a day for 30 day(s) Not-Taking Walking Boot/Pneumatic As directed Wear Daily for Until further notice 04/14/2017 Not-Taking Ibuprofen 800 MG 1 tablet with food or milk as needed Orally Three times a day for 30 days 03/26/2017 Not-Taking Labetalol HCl 100 MG Orally Twice a day Not-Taking Pramipexole Dihydrochloride Not-Taking oxyBUTYnin Not-Takin g amLODIPine Besylate Not-Taking Metoprolol Tartrate 25 MG 1/2 tab Orally Twice a day Not-Taking Isosorbide Mononitrate Not-Taking Meloxicam 15 MG 1 tablet Orally Once a day for 30 day(s) 06/12/2017 Not-Taking Wellbutrin 100mg Not-Takin g Ativan 1 MG 1 tablet Orally Twice a day Not-Taking Aspir-81 Not-Taking Physical Therapy . . . 2-3x/week for 3-4 weeks 09/26/2021 Active Valtrex 1000 mg 1 tablet Orally every 12 hrs for 10 day(s) Active Social History Tobacco Use: Social History Observation [...] Are you an other tobacco user? No Vital Signs Height 5 ft 4 in in 12/22/2023 Weight 131 lbs 12/22/2023 BMI 22.48 kg/m2 12/22/2023 Encounters Encounter Location Date Provider Diagnosis [facility] [address] [place] [address] 12/22/2023 Magen Acevedo Pain in right foot M79.671 ; Sprain of anterior talofibular ligament of right ankle, sequela S93.491S ; Metatarsalgia, right foot M77.41 and Peripheral neuropathic pain M79.2 Assessments Encounter Date Diagnosis (ICD Code) Assessment Notes Treatment Notes Treatment Clinical Notes Section Notes 12/22/2023 Pain in right foot (ICD-10 - M79.671) 12/22/2023 Sprain of anterior talofibular ligament of right ankle, sequela (ICD-10 - S93.491S) 12/22/2023 Metatarsalgia, right foot (ICD-10 - M77.41) 12/22/2023 Peripheral neuropathic pain (ICD-10 - M79.2) Plan Of Treatment Medication Medication Name Sig Start Date Stop Date Notes Walking Boot/Pneumatic As directed Wear Daily for Until further notice Physical Therapy . . . 2-3x/week for 3-4 weeks 12/22/2023 Voltaren 1 % as directed Externally Next Appt Details Follow Up: prn, Reason: Progress Notes * Joselin DENTONeDOB:[birth year] (64 yo F)Acc No.[id number]:12/22/2023 Progress Notes Patient:?Ying DENTON Provider:?Magen Acevedo DPM :1960???Age:63 Y???Sex:Female D ate:12/22/2023 Address:[address] [place], [place] [id number] Pcp:Gustavo Suarez MD Subjective: * Chief Complaints: * ???Foot pain * HPI: ???Foot Pain:?Nature:?aching.?Location?Forefoot, Rearfoot, Right .?Duration:?1 year.?Onset/Cause:?pt dropped 15lb plexiglass on top of right ff 07/25.?Course:?improved.?Treatments:?cast boots and rest have helped with ame wrap.?Quality/Severity?6, scale 1-10.? * ROS:?General/Constitutional:?Nausea?denies, denies.?Vomiting?denies, denies.?Hunger Thirst?denies, denies.?Loss appetite?denies, denies.?Chills?denies, denies.?Fatigue?denies, denies.?Fever?denies, denies.?Night Sweats denies, denies.?Unexplained weight loss?denies, denies.?Ophthalmologic:?Blurred vision?denies, denies.?Red eye?denies, denies.?HEENTM:?Dentures?denies, denies.?Dizziness?denies, denies.?Glasses/contacts?denies, denies.?Retinopathy?denies, denies.?Blurred/double vision?denies, denies.?TMJ?denies, denies.?Discharge/drainage?denies, denies.?Implants?denies, denies.?Hard of hearing ?denies, denies.?Difficulty chewing/swallowing/speaking?denies, denies.?Nose bleeds?denies, denies.?Sore mouth?denies, denies.?Swollen glands?denies, denies.?Respiratory:?On Oxygen?denies, denies.?Pneumonia/pleurisy?denies, denies.?Bronchitis?denies, denies.?Emphysema?denies, denies.?Coughing?denies, denies.?Cough blood?denies, denies.?Shortness of breath?denies, denies.?Wheezing?denies, denies.?Cardiovascular:?Pacemaker?denies, denies.?MVP?denies, denies.?WPW?denies, denies.?CHF?denies, denies.?Heart attack?denies, denies.?Septal defect?denies, denies.?Rapid beat?denies, denies.?Chest pain ?denies, denies.?Atrial Fib.?denies, denies.?Murmur/Palpitations?denies, denies.?Gastrointestinal:?Hemorrhoids?denies, denies.?Stomach/Abdominal pain?denies, denies.?Dark blood stool?denies, denies.?Irritable bowel ?denies, denies.?Constipation?denies, denies.?Diarrhea?denies, denies.?Vomiting?denies, denies.?Hematology:?Swelling?denies, denies.?Bruising?denies, denies.?Bleeding problem?denies, denies.?Genitourinary:?Blood urine?denies, denies.?Frequent/Painfu/urination/bladder control?denies, denies.?Kidney stones?denies, denies.?Infection (UTI)?denies, denies.?Nephropathy?denies, denies.?Musculoskeletal:?Hammertoes?denies, denies.?Bunions?denies, denies.?Scoliosis/kyphosis?denies, denies.?Muscle cramps / walking?denies, denies.?Generalized aches and pains?denies, denies.?Weakness?denies, denies.?Integ.:?[place]?denies, denies.?Scars?denies, denies.?Corns/calluses?denies, denies.?Ingrown nails?denies, denies.?Painful nails?denies, denies.?Rashes?denies, denies.?Neurologic:?Difficulty sleeping?denies, denies.?Bipolar?denies, denies.?Brain disorder?denies, denies.?Balance trouble?denies, denies.?Confusion?denies, denies.?Fainting/blackouts?denies, denies.?Headache?denies, denies.?Tremors?denies, denies.? * Medical History:? * Surgical History:?Partial hy sterectomy discs removed from neck appendectomy 1973bunionectomy knee, meniscus rotator cuff tear repair Kike w ORIF R, HT R 2nd & 3rd repair 04/10/17 * Hospitalization/Major Diagno stic Procedure:?[facility]-Reaction to hypertension, overnight, from [facility]/2017[facility] - chest pain 07/26/2018 * Family History:?Mother: dece ased, cancer, diagnosed with Other malignant neoplasm of unspecified site.?Father: alive.?Maternal aunt: cancer.?Siblings: foot problems-brother, diagnosed with Diabetic - NIDDM.? * Social History:?Tobacco Use:?Tobacco Use/Smoking?Are you a:?former smoker ?When did you start smoking??05/05/1975 ?When did you stop smoking??05/05/1993 ?How long has it been since you last smoked??< 1 month ?Additional Findings: Tobacco User?Moderate cigarette smoker (10-19 cigs/day) ?Additional Findings: Tobacco Non-User?Current non-smoker ?Tobacco use other than smoking?Are you an other tobacco user??No ???Drugs/Alcohol:?Drugs?Have you used drugs other than those for medical reasons in the past 12 months??No ?Alcohol Screen?Did you have a drink containing alcohol in the past year??No ?Points?0 ?Interpretation?Negative ???Miscellaneous:?Caffeine: no. ?Exercise: no. ?Marital status: . ?Occupation: disability. * Medications:?TakingOmeprazol e Lorazepam Atorvastatin Calcium Estradiol 0.0375 MG/24HR Patch Twice Weekly 1 patch to skin Transdermal Two times a Week Gabapentin LaMICtal 300 mg Tablet 1 tablet Orally Once a day Methylphenidate , Notes to Pharmacist: 5mg once a dayNitroglycerin Valtrex 1000 mg Tablet 1 tablet Orally every 12 hrs Physical Therapy . . . . 2-3x/week Voltaren 1 % Gel as directed Externally Walking Boot/Pneumatic As directed Wear Daily Taking Omeprazole Taking Lorazepam Taking Atorvastatin Calcium Taking Estradiol 0.0375 MG/24HR Patch Twice Weekly 1 patch to skin Transdermal Two times a Week Taking Gabapentin Taking LaMICtal 300 mg Tablet 1 tablet Orally Once a day Taking Methylphenidate , Notes to Pharmacist: 5mg once a dayTaking Nitroglycerin Taking Valtrex 1000 mg Tablet 1 tablet Orally every 12 hrs Taking Physical Therapy . . . . 2-3x/week Taking Voltaren 1 % Gel as directed Externally Taking Walking Boot/Pneumatic As directed Wear Daily Not-Taking/PRNAspir-81 Ativan 1 MG Tablet 1 tablet Orally Twice a day Isosorbide Mononitrate Metoprolol Tartrate 25 MG Tablet 1/2 tab Orally Twice a day amLODIPine Besylate Wellbutrin 100mg Meloxicam 15 MG Tablet 1 tablet Orally Once a day oxyBUTYnin Pramipexole Dihydrochloride Labetalol HCl 100 MG Tablet Orally Twice a day Ibuprofen 800 MG Tablet 1 tablet with food or milk as needed Orally Three times a day Walking Boot/Pneumatic As directed Wear Daily Physical Therapy . . . . 2-3x/week Gabapentin 400 MG Capsule 1 capsule Orally i po qd hs Propranolol HCl 10 MG Tablet 1 tablet Orally Twice a day Abilify 10 MG Tablet 1 tablet Orally Once a day Medication List reviewed and reconciled with the patientNot-Taking/PRN Aspir-81 Not- Taking/PRN Ativan 1 MG Tablet 1 tablet Orally Twice a day Not-Taking/PRN Isosorbide Mononitrate Not-Taking/PRN Metoprolol Tartrate 25 MG Tablet 1/2 tab Orally Twice a day Not-Taking/PRN amLODIPine Besylate Not-Taking/PRN Wellbutrin 100mg Not- Taking/PRN Meloxicam 15 MG Tablet 1 tablet Orally Once a day Not-Taking/PRN oxyBUTYnin Not-Taking/PRN Pramipexole Dihydrochloride Not-Taking/PRN Labetalol HCl 100 MG Tablet Orally Twice a day Not-Taking/PRN Ibuprofen 800 MG Tablet 1 tablet with food or milk as needed Orally Three times a day Not-Taking/PRN Walking Boot/Pneumatic As directed Wear Daily Not-Taking/PRN Physical Therapy . . . . 2-3x/week Not-Taking/PRN Gabapentin 400 MG Capsule 1 capsule Orally i po qd hs Not-Taking/PRN Propranolol HCl 10 MG Tablet 1 tablet Orally Twice a day Not-Taking/PRN Abilify 10 MG Tablet 1 tablet Orally Once a day Medication List reviewed and reconciled with the patient * Allergies:?Penicillin: rashA moxicillin: rashCodeine: stomach pain yes[Allergies Verified] Objective: * Vitals:?Ht: 5 ft 4 in, Wt:13 1, BMI:22.48, Shoe size:7.5. * Examination: ???General Examination: ?GENERAL APPEARANCE:?pleasant, alert, well nourished, well developed, well hydrated, with good attention to hygene/body habitus, and in no acute distress.?ORIENTED:?person,place, and time.?Neurological: ?SENSORY:?Neurological exam is normal, pain sensation normal, vibration sensation intact, pinprick sensation is normal in the lower extremities, denies, tingling, burning, anesthesia, paresthesia, hyperesthesia, B/L, Neurological exam demonstrates pop AL right ankle and pop dorsum right 2nd mt distal shaft .?TINEL'S COMPRESSION:?Negative tarsal tunnel, gabriel pedis, and medial calcaneal nerves B/L.?BABINSKI REFLEX:?absent.?Neuroma Pain: ?PALPATION:?No interspace pain noted on palpation.?Vascular: ?DP PULSES (B):?2/4, B/L.?PT PULSES (B):?2/4, B/L.?CAPILLARY FILL TIME:?3 secs. per digit, B/L.?TROPHIC CONDITION-TEXTURE/ELASTICITY/TURGOR/HAIR GROWTH (B):?normal, B/L.?TEMPERTURE GRADIENT (C):?warm to cool, proximal to distal, B/L.?PIGMENTATION:?normal, B/L.?EDEMA (C):?no edema.?TELANGECTASIA:?absent.?VARICOSITIES:?absent.?Dermatologic: ?SKIN FINDINGS:?Skin exam reveals normal texture, elasticity, and tugor. There are no masses. The interspaces are clear, B/L .?Orthopedic: ?MUSCLE STRENGTH:?5/5 all groups in a symmetrical fashion , B/L.?GAIT ABNORMALITY:?pronated, abducted, B/L.? Assessment: * Assessment: 1.?Pain in right foot - M79. 671 (Primary)???2.?Sprain of anterior talofibular ligament of right ankle, sequela - S93.491S???3.?Metatarsalgia, right foot - M77.41???4.?Peripheral neuropathic pain - M79.2??? Plan: * Treatment: 2.?Metatarsalgia, right foot ? Start Voltaren Gel, 1 %, as directed, Externally.?? 3.?Others? Start Walking Boot/Pneumatic, As directed, Wear, Daily, Until further notice, 1, Refills 0.?? * Procedure Codes:? * Preventive Medicine:? ??Counseling:?Discussion:?-14: Office or other outpatient visit for the evaluation and management of an established patient, which required a medically appropriate history and/or examination and MODERATE level of DECISION MAKING for: 1 OR MORE CHRONIC PROBLEM(S) THATS WORSENING, 2 STABLE CHRONIC PROBLEMS, A NEWLY DIAGNOSED PROBLEM WITH UNCERTAIN PROGNOSIS, AN ACUTE COMPLICATED INJURY WITH MULTIPLE TREATMENT OPTIONS, OR AN ACUTE PROBLEM WITH ACCOMPANYING SYSTEMIC SYMPTOMS, THAT POSE(S) A MODERATE RISK OF MORBIDITY. THIS CONDITION MAY ALSO INCLUDE RX DRUG MANAGEMENT, OR A DECISON FOR MINOR SURGERY. The visit on the day of the encounter encompassed interpreting the data and educating the patient as to the nature of their condition, treatment options available according to their individual PMH, meds, allergies, and overall health/living conditions, as well as any potential risks or complications that may occur from a failure to adhere to, and participate in, the recommended course of therapy. The discussion included a complete verbal, and/or written explanation of the examination results, any x-rays taken, the proposed diagnosis, and outline of the treatment plan. A schedule for future care needs was also explained. The patient verbalized an understanding of the instructions at this time and agreed to be an active participant in their treatment. If the patient should think of any questions or concerns after the visit, I have encouraged the patient to call the office; pt to start gentle PT to rehab 2 y/o injury to right foot and ankle and gradually wean from cast boot when ready.? * Follow Up:?prn * Images: * Sign off status: Completed true * Provider:?Magen Acevedo DPM Date:? 024 Generated for Kristeni aldair/Sierra/eTransmitting on:?06/01/2024 02:59 PM EST History and Physical Notes * HPI (History of Present Illness) Category Sub-Category Detail Notes Category Not es Foot Pain Onset/Cause: pt dropped 15lb plexiglass on top of right ff 07/25 Course: improved Duration: 1 year Nature: aching Treatments: cast boots and rest have helped with ame wrap Quality/Severity 6, scale 1-10 Location Forefoot, Rearfoot, Right Examination Category Sub-Category Detail Notes Category Not es Neuroma Pain PALPATION: No interspace pain noted on palpation Neurological SENSORY: Neurological exa m is normal, pain sensation normal, vibration sensation intact, pinprick sensation is normal in the lower extremities, denies, tingling, burning, anesthesia, paresthesia, hyperesthesia, B/L, Neurological exam demonstrates pop AL right ankle and pop dorsum right 2nd mt distal shaft BABINSKI REFLEX: absent TINEL'S COMPRESSION: Negative tarsal demetrius concepcion, gabriel pedis, and medial calcaneal nerves B/L Dermatologic SKIN FINDINGS: Skin exam reveal s normal texture, elasticity, and tugor. There are no masses. The interspaces are clear, B/L Orthopedic GAIT ABNORMALITY: pronated, abducted, B/L MUSCLE STRENGTH: 5/5 all groups in a symmetrical fashion , B/L General Examination GENERAL APPEARANCE: pleasant , alert, well nourished, well developed, well hydrated, with good attention to hygene/body habitus, and in no acute distress ORIENTED: person,place, and ti me Vascular DP PULSES (B): 2/4, B/L PT PULSES (B): 2/4, B/L CAPILLARY FILL TIME: 3 secs. per digit, B/L TEMPERTURE GRADIENT (C): warm to cool, p roximal to distal, B/L TROPHIC CONDITION-TEXTURE/ELASTICITY/TURGOR/HAIR GROWTH (B): normal, B/L EDEMA (C): no edema TELANGECTASIA: absent VARICOSITIES: absent PIGMENTATION: normal, B/L
--- OUTSIDE RECORDS SUMMARY | 2024-06-01 14:59 | XMS_ITS | Clinical Summary ---
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 Active apixaban (ELIQUIS) 2.5 mg tablet Take 5 mg by mouth every 12 hours. Active omeprazole OTC (PriLOSEC OTC) 20 mg EC tablet Take 20 mg by mouth once a day. Active valACYclovir (VALTREX) 500 mg tablet Take 1,000 mg by mouth once a day. Active lamoTRIgine (LaMICtal) 200 mg tablet Take 200 mg by mouth 2 times a day. Totaling 400 mg a day Active ergocalciferol (VITAMIN D2) 1,250 mcg (50,000 unit) capsule Take 50,000 Units by mouth once a week. Active baclofen (LIORESAL) 10 mg tablet Take 20 mg by mouth 2 times a day. Active cyclobenzaprine (FLEXERIL) 5 mg tablet Take 5 mg by mouth 3 times a day as needed for muscle spasms. Active LORazepam (ATIVAN) 1 mg tablet Take 1 mg by mouth nightly. Active estradioL (CLIMARA) 0.05 mg/[address] 1 patch on the skin once a week. Active methylphenidate HCl (RITALIN) 20 mg tablet Take 20 mg by mouth 2 times a day. Active Social History Tobacco Use Types Packs/Day Years Used Date Smoking Tobacco: Never Assessed Comments Unknown Sex and Gender Information Value Date Recorded Sex Assigned at Female 11/13/2022 2:09 PM EDT Legal Sex Female 3:16 PM EDT Gender Identity Not on file Sexual Orientation Not on file Last Filed Vital Signs Vital Sign Reading Time Taken Comments Blood Pressure 106/70 11/22/2022 8:00 AM EDT Pulse 96 11/22/2022 8:00 AM EDT Temperature - - Respiratory Rate 16 11/22/2022 8:00 AM EDT Oxygen Saturation 100% 11/22/2022 8:00 AM EDT Inhaled Oxygen Concentration - - Weight - - Height - - Body Mass Index - - Plan of Treatment Health Maintenance Due Date Last Done Comments Cervical Cancer Screening 1960 Cologuard 1960 Colon Cancer Screening 1960 Colonoscopy 1960 FOBT / Fit Test 1960 HIV Screening 1960 HPV and Pap Smear 1960 Hepatitis C Screening 1960 Pap Smear 1960 Sigmoidoscopy 1960 DTaP,Tdap,and Td Vaccines (1 - Tdap) 01/09/1982 Zoster Vaccines (2 of 2) 02/02/2018 12/08/2017 Mammogram 08/12/2018 08/12/2016, 05/25/2015 RSV Vaccine (60+ years old a nd patients) (1 - Risk 60-74 years 1-dose series) 2020 COVID-19 Vaccine (3 - 2023-2 5 season) 2024 09/14/2021, 12/13/2020 Influenza Vaccine (#1) 2024 03/12/2016 Alcohol/Substance Use Screening 05/05/2024 Depression Screening and Follow-Up 05/05/2024 Social Drivers of Health Annual Screening 05/05/2024 Hepatitis B Vaccines Aged Out No long er eligible based on patient's age to complete this topic Pneumococcal Vaccine: Pediatric (0-5 Years) and At-Risk Patients (6-64 Years) Aged Out No longer eligible based on patient's age to complete this topic Insurance [employer] M[employer] * Guarantor: DAINELLE NUGENT Account Type Relation to Patient Date of Phone Billing Address Personal/Family 1960 Care Teams Heel Sorter Relationship Specialty Start Date End Date Gustavo Suarez [address] [place] [phone] PCP - General Internal Medicine 11/13/22
--- OUTSIDE RECORDS SUMMARY | 2024-06-01 14:59 | XMS_ITS | Patient Health Record ---
Author Organization [facility] Address [address] [place] [address] Care Team Providers Care Network Technician Name Role Phone LAYA MUJICA Primary Care Provider Gustavo Amador Unavailable [phone] ALLERGIES Allergen (clinical drug ingredient) Drug/Non Drug Allergy documented on EMR Reaction Allergy Type Onset Date Status Mold sanches skin/headaches Allergy Active Penicillin Unknown Drug Allergy Active Tylenol with Codeine #3 Unknown Drug Allergy Active REASON FOR REFERRAL No Information MEDICATIONS Medication SIG (Take, Route, Frequency, Duration) Notes Start Date End Date Status Gabapentin 900 MG 1 capsule Orally 300 mg in the a.m and 900 mg in the evening Active Vitamin D 1000 UNIT 1 tablet Orally Once a day for 30 day(s) Active tiZANidine HCl 2 MG 1/2 tablet Orally Once a day as needed for muscle cramps Active Omeprazole Magnesium 20 MG 1 tablet 1/2 to 1 hour before morning meal Orally twice a day Active Baclofen 20 MG 1 Orally Three times a day Active Hyoscyamine Sulfate 0.125 MG 1 or [...] Lorazepam 3 tablets Oral at bedtime Active valACYclovir HCl 1 GM 1 tablet Orally Once a day for 10 day(s) Active SOCIAL HISTORY Tobacco Use: Social History Observation Description Date Details (start date - stop date) Former Smoker NA - NA Sex Assigned At : Social History Observation Description Sex Assigned At Unknown Tobacco Use/Smoking Question Answer Notes Patient is a former smoker When did you stop smoking? 1989 Alcohol Screen Question Answer Notes Did you have a drink containing alcohol in the p ast year? No Points 0 Interpretation Negative PROBLEMS Problem Type ICD Code Onset Dates Problem Status W/U Status Risk SNOMED Code Notes Problem Colon cancer screening (Z12.11) Active confirmed Colon cancer screening (329310352) Problem Encounter for screening for malignant neoplasm of colon (Z12.11) Active confirmed 557355071 Problem History of adenomatous polyp of colon (Z86.010) Active confirmed 838755602 Problem Constipation (K59.00) Active confirmed Constipation (47177956) Problem IBS (irritable bowel syndrome) (K58.9) Active confirmed Irritable bowel syndrome (53932894) Problem Long-term use of aspirin therapy (Z79.82) Active confirmed 217709493 Problem Abdominal pain, left lower quadrant (R10.32) Active confirmed Left lower quadrant pain (309725868) Problem Abdominal pain, generalized (R10.84) Active confirmed 677204513 Problem Incontinence of feces, unspecified fecal incontinence type (R15.9) Active confirmed 69822362 VITAL SIGNS Blood pressure diastolic 00 mm Hg 05/20/2024 Height 62.5 in 05/20/2024 Blood pressure systolic 00 mm Hg 05/20/2024 Weight 121 lbs 05/20/2024 BMI 21.78 kg/m2 05/20/2024 Encounters Encounter Location Date Provider Diagnosis [facility] [address] [facility] [address] [place] [address] 05/20/2024 Gustavo Sofia Colon cancer screeni ng Z12.11 ; History of adenomatous polyp of colon Z86.010 ; Constipation K59.00 ; IBS (irritable bowel syndrome) K58.9 and Abdominal pain, left lower quadrant R10.32 ASSESSMENTS Encounter Date Diagnosis Assessment Notes Treatment Notes Treatment Clinical Notes 05/20/2024 Colon cancer screening (ICD-10 - Z12.11) We will obtain a copy of the [facility] Colonoscopy from 2020 and will then decide at the next office visit if you need a screening colonoscopy this year or whether it can wait until 2025. 05/20/2024 History of adenomatous polyp of colon (ICD-10 - Z86.010) 05/20/2024 Constipation (ICD-10 - K59.00) 05/20/2024 IBS (irritable bowel syndrome) (ICD-10 - K58.9) 05/20/2024 Abdominal pain, left lower quadrant (ICD-10 - R10.32) PLAN OF TREATMENT Future Test Test Name Order Date COLONOSCOPY 02/04/2013 COLONOSCOPY 02/16/2019 Next Appt Details Provider Name:Gustavo Sofia , 01/18/2025 09:30:00 AM, [address] [place] [address], [address], [place], [address], Insurance Providers Payer Name Payer Address Payer Phone Subscriber Number Group Number Insured Name Patient Relationship to Insured Coverage Start Date Coverage End Date [employer] [address] [place] [id number] DANIELLE NUGENT Self - patient is the insured [employer] PPO [address] [place] [phone] [id number] DANIELLE NUGENT Self - patient is the insured MEDICAL (GENERAL) HISTORY Medical History History ICD Code Propranolol for anxiety Bipolar disorder Fibrocystic breast disease Eczema Herpes simplex, recurrent Sleep disorder-insomnia Denies CA,DM,CVA,Lung disease,renal dise ase EGD in 1997 by tx-mild gastritis-neg H.p ylori 2000 EGD and Colonoscopy at [facility] by Dr. 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 [place] Neuropathy Neg. colonoscopy in 03/2019 EGD 07/02/2019 at [place]--neg. except minimal gastritis--bx neg. for H.pylori, normal duodenal bx Afib--sees Dr. 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 Elmo marcelino at [facility] for /GI incontinence with improvement
--- OUTSIDE RECORDS SUMMARY | 2024-06-01 14:59 | XMS_ITS | Referral Summary ---
Author Organization [facility] Address [address] [place] [address] Care Team Providers Care Air Cargo Ground Crew Supervisor Name Role Phone Gustavo Suarez Primary Care Provider [phone] Allergies Active Allergy Reactions Criticality Noted Date [...] Mass Index - - Plan of Treatment Not on file Insurance [facility] * Guarantor: DANIELLE NUGENT Account Type Relation to Patient Date of Phone Billing Address Personal/Family 1960 Care Teams Air Cargo Ground Crew Supervisor Relationship Specialty Start Date End Date Gustavo Suarez [address] [place] [address] [place] [address] PCP - General Internal Medicine 11/13/22
--- OUTSIDE RECORDS SUMMARY | 2024-06-01 15:00 | XMS_ITS ---
Author Organization Gustavo Suarez DO, [facility] Address [address] [place], [place] [id number] Care Team Providers Care Mica Machine Operator Name Role Phone DanielaGustavo Primary Care Provider [...] Once a week Active Ergocalciferol 1.25 MG (43403 UT) 1 capsule Orally Once a week [...] Location Date Provider Diagnosis Gustavo Suarez DO, [address] [id number] 03/24/2024 Gustavo Suarez Coronary artery spas m [...] General Examination GENERAL APPEARANCE: in no ac shoalwater distress, well developed, well nourished HEAD: normocephalic, atrau matic HEART: no murmurs, regular rate and rhythm, S1, S2 normal LUNGS: clear to auscultatio n bilaterally ABDOMEN: normal, bowel sounds present, soft, nontender, nondistended SKIN: warm and dry EXTREMITIES: no edema PSYCH: alert, oriented, cog nitive function intact
--- OUTSIDE RECORDS SUMMARY | 2024-06-01 15:00 | XMS_ITS | Patient Health Record ---
Author Organization [facility] Address [address] [facility] [address] [place] [address] Care Team Providers Care Homicide Squad Commanding Officer Name Role Phone Matt Guevara Primary Care Provider LEBRON Cordon Unavailable [phone] Reason For Referral No Information Plan Of Treatment No Information Insurance Providers Payer Name Payer Address Payer Phone Subscriber Number Group Number Insured Name Patient Relationship to Insured Coverage Start Date Coverage End Date A[employer] [address] [place], [place] [id number] Ying Denton Self - patient is the insured [facility] [employer] [address] [place] [id number] Ying Denton Self - patient is the insured
--- OUTSIDE RECORDS SUMMARY | 2024-06-01 15:00 | XMS_ITS | Encounter Summary ---
Author Organization [facility] Address [address] [place] [address] Care Team Providers Care Sock Folder Name Role Phone Gustavo Suarez DO Primary Care Provider [phone] Reason for Visit * Reason Onset Date Comments Medical Records 05/13/2024 Encounter Details Date Type Department Care Team (Late st Contact Info) Description 05/13/2024 Telephone [facility] [address] [place] [phone] Gustavo Suarez DO [address] [place] [phone] Medical Records Social History Tobacco Use Types Packs/Day Years [...] on file documented as of this encounter Progress Notes * Juliann Brown - 05/13/2024 11:04 AM EST Faxed last office note, EKG and Nuclear Stress Test results to [facility] At [phone] on 03/31/2024 documented in this encounter Plan of Treatment Upcoming Encounters Date Type Department Care Team (Late st Contact Info) Description 06/10/2024 1:30 PM EST Consult [facility] Cardiology [facility] [address] [place] [address] Richard Santamaria MD [address] [place] [address] 07/28/2024 8:50 AM EDT Office Visit [facility] Cardiology [facility] [address] [place] [address] [address] [place] [phone] Ziggy Ventura MD [address] [place] [address] [address] [place] [address] documented as of this encounter Visit Diagnoses Not on filedocumented in this encounter Care Teams Sock Folder Relationship Specialty Start Date End Date Gustavo Suarez DO [address] [place] [phone] PCP - General 11/28/09 documented as of this encounter
--- OUTSIDE RECORDS SUMMARY | 2024-06-01 15:00 | XMS_ITS | Encounter Summary ---
Author Organization [facility] Address [address] [place] [address] Care Team Providers Care Hat Mender Name Role Phone Gustavo Suarez DO Primary Care Provider Reason for Visit * Reason Comments 48 Hour Holter Monitor * Cardiac Stress Testing (Routine) - Closed Specialty Diagnoses / Procedures Referred By Contac t Referred To Contact Cardiology Diagnoses PAF (paroxysmal atrial fibrillation) (CMS/HCC) Dizziness PVC's (premature ventricular contractions) Procedures Cardiac holter monitor (<= 48 hours) ME ECG EXTERNAL UP TO 48 HOURS RECORDING ME ECG EXTERNAL < 48 HOURS CONTINUOUS RECORDING/STORAGE R&I BY A PHYS/QHP ME EXTERNAL ECG UP TO 48 HRS INCL RECORDING SCANNING ANLYS W REPORT Kimberly Abreu [place] [address] [facility] Referral ID Status Reason Start Date Expiration Date Visits Re quested Visits Authorized [id number] Closed 04/14/2024 04/14/2025 1 1 Encounter Details Date Type Department Care Team (Latest Contact Info) Description 05/06/2024 11:00 AM EST Ancillary Procedure [facility] - [address] [place] [address] PAF (paroxysmal atrial fibrillation) (CMS/HCC); Dizziness; PVC's (premature ventricular contractions) Social History Tobacco Use Types Packs/Day Years [...] on file documented as of this encounter Plan of Treatment Upcoming Encounters Date Type Department Care Team (Late st Contact Info) Description 06/10/2024 1:30 PM EST Consult [facility] [address] [facility] [address] [place] [address] Richard Santamaria MD [address] [facility] [address] [place] [address] 07/28/2024 8:50 AM EDT Office Visit [facility] Cardiology [facility] Medical [facility] [address] [place] [address] Ziggy Ventura MD [address] [place] [address] [address] [place] [address] documented as of this encounter Procedures Procedure Name Priority Date/Time Associated Diagnosis Comments CARDIAC HOLTER MONITOR (REPORT GENERATED IN HOUSE) Routine 05/06/2024 10:46 AM EST PAF (paroxysmal atrial fibrillation) (CMS/HCC) Dizziness PVC's (premature ventricular contractions) documented in this encounter Results * CARDIAC HOLTER MONITOR (REPORT GENERATED IN HOUSE) (05/06/2024 10:46 AM EST) Anatomical Region Laterality Modality Cardiac Diagnost ic Narrative 05/14/2024 1:21 PM EST [facility] [address] [id number], [place] [address] TEL: FAX: Type of Test: 48 Hour [...] Kimberly Abreu NP [facility] PROCEDURES documented in this encounter Visit Diagnoses Diagnosis PAF (paroxysmal atrial fibrillation) (CMS/HCC) Atrial fibrillation Dizziness Dizziness and giddiness PVC's (premature ventricular contractions) Other premature beats documented in this encounter Care Teams Hat Mender Relationship Specialty Start Date End Date Gustavo Suarez DO [address] [place] [phone] PCP - General 11/28/09 documented as of this encounter
--- OUTSIDE RECORDS SUMMARY | 2024-06-01 15:00 | XMS_ITS | Encounter Summary ---
Author Organization [facility] Address [address] [place] [address] Care Team Providers Care Sealer Operator Name Role Phone Gustavo Suarez DO Primary Care Provider [phone] Reason for Visit * Reason Onset Date Comments Allergic Reaction 05/07/2024 Encounter Details Date Type Department Care Team (Late st Contact Info) Description 05/07/2024 Telephone [facility] Cardiology [facility] [address] [place] [phone] Ziggy Ventura MD [address] [place] [address] [address] [place] [address] Allergic Reaction Social History Tobacco Use Types Packs/Day Years [...] as of this encounter Progress Notes * Kimberly Abreu NP - 05/10/2024 9:27 AM EST Noted, thank you. * Yulisa Martin MA - 05/10/2024 9:08 AM EST I spoke to Ying and she tells me , she had to also take the sensitive huypoallergenic ones as well because her skin reacted the same way, she took them off and took romain plus hydrocortisone ointment and its getting a lot better * Kimberly Abreu NP - 05/10/2024 8:43 AM EST Please call patient and assess how skin is now that is has been off for a few days? Thanks * Anna Canchola RN - 05/10/2024 6:12 AM EST Ambulatory Monitoring Dept closed at 4:00, prior to the message below. Holter monitor ended 05/08/23.We can determine how many hours were recorded once the monitor is returned and assess if the recording can/should be repeated using different electrodes. Please advise patient about treatment of skin irritation as below. * Danielle Emerson - 05/07/2024 4:21 PM EST Patient has an allergy to the adhesives on the Holter monitor. It is getting worse. She has to wearit until tomorrow. Is there something she can take for the allergy? Benadryl? documented in this encounter Plan of Treatment Upcoming Encounters Date Type Department Care Team (Late st Contact Info) Description 06/10/2024 1:30 PM EST Consult [facility] - [address] [place] [address] Richard Santamaria MD [address] [place] [address] 07/28/2024 8:50 AM EDT Office Visit [facility] Cardiology [facility] [address] [facility] [address] [place] [phone] Ziggy Ventura MD [address] [place] [address] [address] [place] [address] documented as of this encounter Visit Diagnoses Not on filedocumented in this encounter Care Teams Sealer Operator Relationship Specialty Start Date End Date Gustavo Suarez DO [address] [place] [phone] PCP - General 11/28/09 documented as of this encounter
--- OUTSIDE RECORDS SUMMARY | 2024-06-01 15:00 | XMS_ITS | Encounter Summary ---
Author Organization [facility] Address [address] [place] [address] Care Team Providers Care Supervisor Steel Division Name Role Phone Gustavo Suarez DO Primary Care Provider [phone] Reason for Visit * Reason Onset Date Comments [employer] - OON May 05 04/30/2024 Encounter Details Date Type Department Care Team (Late st Contact Info) Description 04/30/2024 Telephone [facility] Associates - [facility] [address] [facility] [address] [place] [address] Cardiology, [facility] [employer] - OON May 05 Social History Tobacco Use Types Packs/Day Years [...] as of this encounter Progress Notes * Kandice Caceres - 04/30/2024 10:40 AM EST PT was called and informed we will be OON as of May 05 with Frida. PT will keep her appt. PT also infomred me she has an allergy to the adhesive and is hoping for different pads on the Holter Monitor. documented in this encounter Plan of Treatment Upcoming Encounters Date Type Department Care Team (Late st Contact Info) Description 06/10/2024 1:30 PM EST Consult [facility] Cardiology [facility] - [facility] [address] [facility] [address] [place] [address] Richard Santamaria MD [address] [facility] [address] [place] [address] 07/28/2024 8:50 AM EDT Office Visit [facility] [address] [place] [address] [address] [place] [address] Ziggy Ventura MD [address] [place] [address] [address] [place] [address] documented as of this encounter Visit Diagnoses Not on filedocumented in this encounter Care Teams Supervisor Steel Division Relationship Specialty Start Date End Date Gustavo Suarez DO [address] [place] [phone] PCP - General 11/28/09 documented as of this encounter
--- OUTSIDE RECORDS SUMMARY | 2024-06-01 15:00 | XMS_ITS | Encounter Summary ---
Author Organization [facility] Address [address] [place] [address] Care Team Providers Care Top Lift Trimmer Name Role Phone Gustavo Suarez DO Primary Care Provider [phone] Reason for Visit * Reason Onset Date Comments FYI 04/14/2024 Encounter Details Date Type Department Care Team (Late st Contact Info) Description 04/14/2024 Telephone [facility] Cardiology Associates [facility] [address] [place] [phone] Ziggy Ventura MD [address] [place] [address] [address] [place] [address] Social History Tobacco Use Types Packs/Day Years [...] as of this encounter Progress Notes * Roseann Stearns - 04/14/2024 4:22 PM EST Patient called to inform that her Bulk Loader's name is Sherri and she is seen at [facility] Pulmonology. Here phone number is [phone]. documented in this encounter Plan of Treatment Upcoming Encounters Date Type Department Care Team (Late st Contact Info) Description 06/10/2024 1:30 PM EST Consult [facility] Cardiology [facility] [address] [place] [address] Richard Santamaria MD [address] [place] [address] 07/28/2024 8:50 AM EDT Office Visit [address] [place] [address] Ziggy Ventura MD [address] [place] [address] [address] [place] [address] documented as of this encounter Visit Diagnoses Not on filedocumented in this encounter Care Teams Top Lift Trimmer Relationship Specialty Start Date End Date Gustavo Suarez DO [address] [place] [phone] PCP - General 11/28/09 documented as of this encounter
== END 2024-06-01 15:15 | disposition home or self-care (01) ==
PROVIDERS: PCP Internal Medicine; Visit Provider Nurse Practitioner Family
DX: G25.82 Stiff-man syndrome (principal); R06.00 Dyspnea, unspecified
CPT/HCPCS: 99214

== ENCOUNTER → 2024-06-01 14:00 | Outpatient (BNVA) | payer MEDICARE, OTHER, SELFPAY | PROVIDERS: PCP Internal Medicine; Visit Provider Nurse Practitioner Family | DX: G25.82 Stiff-man syndrome (principal); R06.00 Dyspnea, unspecified | CPT/HCPCS: 99212 ==

== ENCOUNTER 2024-06-23 13:08 | Outpatient (AMB) | payer MEDICARE, OTHER, SELFPAY ==
--- NOTE | 2024-06-23 13:13 | A.OFFPC_ITS ---
Vital Signs 06/23/24 13:28 Height 5 ft 0.25 in Weight 116 lb BMI 22.5 BP 118/66 Blood Pressure Location Rt brachial Pulse 84 Pulse Source Pulse Oximeter Temp 97.9 F Pulse Oximetry (%) 98 Intake Visit Reasons: 2 month follow up Intake Note: allergies, has had alot going on over the pasty few months Allergies penicillin G [Penicillin G] Allergy (Mild, Verified 06/23/24 14:07) RASH penicillin V Allergy (Unknown, Verified 06/23/24 14:07) Abdominal Pain adhesive Allergy (Verified 06/23/24 14:07) Blister mold Allergy (Verified 06/23/24 14:07) Headache Ievgknk-ZYI-BwC Reductase Inhibitor Allergy (Verified 06/23/24 14:07) Weakness codeine [Codeine] Adverse Reaction (Mild, Verified 06/23/24 14:07) SEVERE ABDOMINAL PAIN Medication List - Last Reconciled 06/23/24 by Ellie Kan PA-C acetaminophen 1,000 mg (2 x 500 mg) PO Q8H PRN albuterol sulfate 90 mcg/actuation 2 puffs inhalation Q4-6H PRN apixaban (Eliquis) 5 mg PO BID baclofen 20 mg PO TID biotin 10,000 mcg PO DAILY diazepam 5 mg PO BID PRN dicyclomine 10 mg PO QID epinephrine 0.3 mg (0.3 mL) IM Q10M PRN ergocalciferol (vitamin D2) 1,250 mcg PO Q2W estradiol 1 patch transdermal WE@0900 gabapentin 1,200 mg PO DAILY@1900 lamotrigine ER 400 mg PO DAILY omeprazole 20 mg PO BID ranolazine ER 500 mg PO BID [rollator As directed] valacyclovir 500 mg PO ONCE PFSH Medical History History of mammogram (~2022) Ataxia Coronary artery spasm Coronary artery anomaly Hair loss Hemorrhoids Diverticulosis Tubular adenoma Eczema Fibrocystic breast disease Herpes simplex Hypersomnia Witnessed apneic spells Arthritis Difficulty swallowing Weakness On anticoagulant therapy Lumbar spondylosis Spinal stenosis in cervical region Restless legs syndrome (RLS) Anemia Fatigue Cervical spondylosis Anxiety Bipolar disease, manic Occasional tremors Obstructive sleep apnea Insomnia GERD (gastroesophageal reflux disease) Cardiac microvascular disease TIA (transient ischemic attack) Atrial fibrillation Cardiomyopathy Surgical History H/O cervical discectomy History of partial hysterectomy History of tonsillectomy Hx of hand surgery History of radiofrequency ablation procedure for cardiac arrhythmia History of esophagogastroduodenoscopy (EGD) H/O colonoscopy (~04/24/20) H/O radiofrequency ablation (RFA) of nerve of lumbar spine Hx of cervical spine surgery Hx of shoulder surgery H/O: knee surgery Hx of cholecystectomy History of carpal tunnel release Hx of appendectomy Family History Father Dementia Cancer Mother Cancer COPD (chronic obstructive pulmonary disease) Multiple sclerosis Daughter Myasthenia Social History Household Members: Significant Other Housing: House Are you a primary ambulatory care nurse to a significant other at home: No Do you presently have visiting nurse 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, 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) Alcohol intake: never Comment: counts correct Patient Tobacco Use Status: Never used Tobacco service: No Questionnaire Thrive Questionnaire Date Thrive assessed: 12/16/22 Physical exam (Primary Care) Vital Signs: Last Vital Signs Temp 97.9 F 06/23/24 13:28 Pulse 84 06/23/24 13:28 BP 118/66 06/23/24 13:28 Pulse Ox 98 06/23/24 13:28 Care Plan Goal for BP management: 130/80 at goal BMI result Body Mass Index 22.5 normal bmi Tobacco/Smoking Status: Tobacco use Status Patient Tobacco Use Status Never used Tobacco 06/23/24 13:30 Thrive Assessment: Date of Thrive Assessment Date Thrive assessed 12/16/22 06/23/24 13:30 Coding Level of Care Code Est Pt Level 4 (51287) Complex EM visit Add On G2211 Diagnoses Anxiety F41.9 Bipolar disease, manic F31.10 Insomnia G47.00 GERD (gastroesophageal reflux disease) K21.9 Occasional tremors R25.1 Obstructive sleep apnea G47.33 Anemia D64.9 Restless legs syndrome (RLS) G25.81 Muscle spasticity M62.838 Chronic headaches R51.9; G89.29 Coronary artery spasm I20.1 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 Diverticulosis K57.90 Tubular adenoma D36.9 Eczema L30.9 Fibrocystic breast disease N60.19 Herpes simplex B00.9 Atrial fibrillation I48.91 Ataxia R27.0 TIA (transient ischemic attack) G45.9 Hair loss L65.9 Hemorrhoids K64.9 Neuropathy G62.9 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 as needed. Patient currently on lamotrigine extended release 400 mg daily. Condition is chronic and stable will continue to monitor. (2) Bipolar disease, manic: Code(s): F31.10 - Bipolar disorder, current episode manic without psychotic features, unspecified Category: Medical Plan: Patient currently on diazepam 5 mg b.i.d. as needed. Patient currently on lamotrigine extended release 400 mg daily. Condition is chronic and stable will continue to monitor. (3) Insomnia: Code(s): G47.00 - Insomnia, unspecified Category: Medical Plan: Condition is chronic and stable will continue to monitor. (4) GERD (gastroesophageal reflux disease): Code(s): K21.9 - Gastro-esophageal reflux disease without esophagitis Category: Medical Plan: Patient currently on omeprazole 20 mg b.i.d.. Condition is chronic and stable continue to monitor (5) Occasional tremors: Code(s): R25.1 - Tremor, unspecified Category: Medical Plan: Patient currently on lamotrigine extended release 400 mg daily. Patient being followed by neurologist Dr. Richard Lewis at [facility]. Condition is chronic and stable will continue to monitor. (6) Obstructive sleep apnea: Code(s): G47.33 - Obstructive sleep apnea (adult) (pediatric) Category: Medical Plan: Condition is chronic and stable will continue to monitor. (7) Anemia: Code(s): D64.9 - Anemia, unspecified Category: Medical Plan: Condition is chronic and stable will continue to monitor. (8) Restless legs syndrome (RLS): Code(s): G25.81 - Restless legs syndrome Category: Medical Plan: Patient currently on gabapentin 1200 mg daily. Condition is chronic and stable continue to monitor. (9) Muscle spasticity: Code(s): M62.838 - Other muscle spasm Category: Medical Plan: Patient currently on diazepam 5 mg b.i.d.. Patient currently on baclofen 20 mg t.i.d.. Condition is chronic and stable continue to monitor. (10) Chronic headaches: Code(s): R51.9 - Headache, unspecified; G89.29 - Other chronic pain Category: Medical Plan: Patient has p.r.n. Tylenol. Condition is chronic and stable continue to monitor. (11) Coronary artery spasm: Code(s): I20.1 - Angina pectoris with documented spasm Category: Medical Plan: Patient currently on Eliquis 5 mg b.i.d.. Condition is chronic and stable will continue to monitor. 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 Condition is chronic and stable continue to monitor. (13) Diverticulosis: Code(s): K57.90 - Diverticulosis of intestine, part unspecified, without perforation or abscess without bleeding Category: Medical Plan: Patient on dicyclomine 10 mg q.i.d.. Condition is chronic and stable continue to monitor. (14) Tubular adenoma: Code(s): D36.9 - Benign neoplasm, unspecified site Category: Medical Plan: Patient being followed by GI Dr. Gutierrez. Has colonoscopy coming up this year. Last colonoscopy 04/24/2020. Condition is chronic and stable continue to monitor. (15) Eczema: Code(s): L30.9 - Dermatitis, unspecified Category: Medical Plan: Condition is chronic and stable continue to monitor. (16) Fibrocystic breast disease: Code(s): N60.19 - Diffuse cystic mastopathy of unspecified breast Category: Medical Plan: Patient's last mammogram was 2022. Will send referral for new mammogram this year. Condition is chronic and stable continue to monitor (17) Herpes simplex: Code(s): B00.9 - Herpesviral infection, unspecified Category: Medical Plan: Patient currently on Valtrex 500 mg b.i.d. although reports since she started the diazepam 3 weeks ago she feels like her body is under less stress and she has been cutting it down to 500 mg daily. Dosing was updated to reflect this. Condition is chronic and stable continue to monitor. (18) Atrial fibrillation: Code(s): I48.91 - Unspecified atrial fibrillation Category: Medical Plan: Patient currently on Eliquis 5 mg b.i.d.. Condition is chronic and stable continue to monitor. (19) Ataxia: Code(s): R27.0 - Ataxia, unspecified Category: Medical Plan: Patient currently on Eliquis 5 mg b.i.d. Patient currently on lamotrigine extended release 400 mg daily. Patient being followed by neurologist Dr. Richard Lewis at [facility]. Condition is chronic and stable will continue to mon itor. (20) TIA (transient ischemic attack): Code(s): G45.9 - Transient cerebral ischemic attack, unspecified Category: Medical Plan: Patient currently on Eliquis 5 mg b.i.d. Patient currently on lamotrigine extended release 400 mg daily. Patient being followed by neurologist Dr. Richard Lewis at [facility]. Condition is chronic and stable will continue to monitor. (21) Hair loss: Code(s): L65.9 - Nonscarring hair loss, unspecified Category: Medical Plan: Patient currently on biotin 95896 mcg daily. Condition is chronic and stable will continue to monitor. (22) Hemorrhoids: Code(s): K64.9 - Unspecified hemorrhoids Category: Medical Plan: Condition is chronic and stable will continue to monitor. (23) Neuropathy: Code(s): G62.9 - Polyneuropathy, unspecified Category: Medical Plan: Patient currently on gabapentin 1200 mg daily. Condition is chronic and stable continue to monitor. 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 Patient currently on lamotrigine extended release 400 mg daily. Patient being followed by neurologist Dr. Richard Lewis at [facility]. Condition is chronic and stable will continue to monitor. Plan Plan - Stiff Person Syndrome: Management with diazepam; continuation and recalibration of therapy as needed. - Atrial Fibrillation: Continue Eliquis 5 mg BID with follow-up cardiology appointments. - Allergic Reactions: Referral to allergy and immunology for further testing and management. - Herpes Simplex Virus: Adjust Valtrex dosing upon confirmation. - Cholesterol Management: Prescribe fish oil for cholesterol management. Follow up with aquatic instructor advised. - Mold Allergy: Prescribe EpiPen for emergency use, provide anticipatory guidance on use. - Health Maintenance: Ensure mammogram and colonoscopy appointments are followed. Orders: Orders Complete Blood Count Auto Diff Today Z00.00 - Encounter for general adult medical examination without abnormal findings Comprehensive [place]. Panel Fast Today Z00.00 - Encounter for general adult medical examination without abnormal findings Hemoglobin A1c Today Z00.00 - Encounter for general adult medical examination without abnormal findings C Reactive Protein Today Z00.00 - Encounter for general adult medical examination without abnormal findings Vitamin D 25-OH Total Today Z00.00 - Encounter for general adult medical examination without abnormal findings MM screening mammo BI Today N60.19 - Diffuse cystic mastopathy of unspecified breast, Z12.31 - Encounter for screening mammogram for malignant neoplasm of breast Lipid Panel Today Z00.00 - Encounter for general adult medical examination without abnormal findings Liver Panel Today Z00.00 - Encounter for general adult medical examination without abnormal findings Magnesium Today Z00.00 - Encounter for general adult medical examination without abnormal findings Vitamin B1 Today Z00.00 - Encounter for general adult medical examination without abnormal findings Vitamin B12 and Folate Today Z00.00 - Encounter for general adult medical examination without abnormal findings TSH reflex Free T4 Today Z00.00 - Encounter for general adult medical examination without abnormal findings Referrals Allergy & Immunology Referral Z88.9 - Allergy status to unspecified drugs, medicaments and biological substances Medications: New ubidecarenone-omega 3-vit E 25-150-200 mg-mg-unit (Co G-27-Pbuixhy E-Fish Oil) 1 cap PO DAILY 90 caps 1RF epinephrine for 2 doses 0.3 mg (0.3 mL) IM Q10M PRN 2 ea 1RF anaphylaxis Patient Instructions: Patient Instructions - Continue current medication regimen as directed. - Follow up with allergy and immunology for allergy testing. - Use EpiPen if experiencing severe allergic reactions and seek emergency care. - Schedule mammogram and colonoscopy as due. - Start fish oil supplements daily for cholesterol management. - Contact for any new or worsening symptoms or complications. 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 The patient experiences muscle spasticity that affects her diaphragm and contributes to breathing difficulties. She reports previous transient ischemic attacks correlated with holding anticoagulation th erapy. The patient has a history of atrial fibrillation managed with anticoagulants. The coronary spasm is managed as she cannot tolerate beta- blockers. The patient experiences episodic herpes simplex virus infections and uses Valtrex for suppression therapy, which she seeks to adjust. Additionally, she reports issues with mold allergies and adhesive-induced skin reactions. She follows with a central supply supervisor and block machine operator for ongoing management of afib and thyroid concerns. Social History - Resides alone but has a caregiver and additional support staying with her - Receives six hours of home services weekly - Recently started driving again - Follows high-calorie, high-protein nutritional therapy with a [facility] aquatic instructor - History of mold allergy affecting her ability to visit certain places like thrift stores Review of Systems - General: Reports feeling weak intermittently - Respiratory: Denies exacerbation of chest pain and breathlessness - Cardiovascular: Denies new chest pain - Dermatological: Reports severe blisters from adhesives Physical Exam Appearance: Alert. Oriented X3. No acute distress. Head: Normal external exam. Normocephalic. Atraumatic. Eyes: Pupils are equal, round, and reactive to light. Extraocular movements intact. Conjunctiva and sclera normal. Eyelids normal. Ears: External auditory canal normal. Tympanic membranes normal. Throat: Pharynx normal. Uvula midline. Moist mucous membranes. Neck: Normal inspection. Neck supple. Full range of motion. No adenopathy. Thyroid Normal. No meningeal signs. No neck mass noted. Cardiovascular: Normal heart rate and rhythm. Heart sound normal. No murmurs noted. Pulses normal throughout. Respiratory: No respiratory distress. Painless inspiration. Breath sounds normal. No wheezes/rales/rhonchi noted. Chest nontender. No accessory muscle usage noted or decreased air movement noted. Abdomen: Soft and nontender. Bowel sounds normal in all 4 quadrants. No distention noted. No organomegaly noted. No visible injury noted. Back: No costovertebral angle tenderness. Full range of motion noted. Skin: Skin warm and dry. Normal skin color. Normal skin turgor. No rashes/lesions/lacerations noted. Extremities: No lower extremity edema. Extremities exhibit normal range of motion. Extremities nontender. Neuro: Oriented X 3. No motor deficit. No sensory deficit. Reflexes normal. Results - Labs: Cholesterol 247 mg/dL, LDL 147 mg/dL - Tests: Thyroid function low TSH, specifics of free T4 mentioned as monitored Plan - Stiff Person Syndrome: Management with diazepam; continuation and recalibration of therapy as needed. - Atrial Fibrillation: Continue Eliquis 5 mg BID with follow-up cardiology appointments. - Allergic Reactions: Referral to allergy and immunology for further testing and management. - Herpes Simplex Virus: Adjust Valtrex dosing upon confirmation. - Cholesterol Management: Prescribe fish oil for cholesterol management. Follow up with aquatic instructor advised. - Mold Allergy: Prescribe EpiPen for emergency use, provide anticipatory guidance on use. - Health Maintenance: Ensure mammogram and colonoscopy appointments are followed. Patient was informed and verbally consented to the use of an ambient scribe for clinic note documentation during this visit. Discussion Notes I discussed the patient's diagnosis of stiff person syndrome and its management, including the recent improvement with diazepam. The importance of continued anticoagulation for atrial fibrillation with Eliquis was clarified. We explored adjusting herpes simplex management and reiterated the need for allergy and i mmunology referral for managing mold and adhesive allergies. Risks and benefits of cholesterol management with fish oil were reviewed, emphasizing the inability to take statins. We talked about using an EpiPen in emergencies caused by allergic reactions and reinforced the need for regular monitoring of the thyroid. Follow-up in three months was planned to keep tracking all conditions closely. Patient Instructions - Continue current medication regimen as directed. - Follow up with allergy and immunology for allergy testing. - Use EpiPen if experiencing severe allergic reactions and seek emergency care. - Schedule mammogram and colonoscopy as due. - Start fish oil supplements daily for cholesterol management. - Contact for any new or worsening symptoms or complications.
--- OUTSIDE RECORDS SUMMARY | 2024-06-23 13:23 | XMS_ITS ---
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 Generated for Kristeni aldair/Sierra/eTransmitting on:?06/23/2024 01:23 PM EST
--- OUTSIDE RECORDS SUMMARY | 2024-06-23 13:23 | XMS_ITS | Encounter Summary ---
Author Organization [facility] Address [address] [place] [phone] Care Team Providers Care Field Logistics Coordinator Name Role Phone Unavailable Primary Care Provider Unavailabl e Reason for Visit * Reason Onset Date Comments Triage 10/10/2023 Encounter Details Date Type Department Care Team (Late st Contact Info) Description 10/10/2023 Telephone [facility] [address] [place] [address] Richard Lewis MD [address] [place] [address] Triage Social History Tobacco Use Types Packs/Day Years Used Date Smoking Tobacco: Never Assessed PHQ-2 Answer Date Recorded PHQ-2 Total Score 0 09/24/2023 Interpersonal Safety Answer Date Record ed Is there anyone in your life that is hurting or threatening you in anyway? no 09/24/2023 Physical Indicators of Abuse No evidence of phys ical abuse 09/24/2023 Comments Unknown Sex and Gender Information Value Date Recorded Sex Assigned at Not on file Legal Sex Female 2:58 PM EDT Gender Identity Female 09/23/2023 10:02 AM EDT Sexual Orientation Straight 09/23/2023 10 :02 AM EDT documented as of this encounter Miscellaneous Notes * Telephone Encounter - Peggy Tinoco RN - 10/10/2023 11:16 AM EDT Called and spoke with patient. Pt reports that for the last few days her muscle cramps in her L armdown to her elbow have been horrible. Pt also reports cramps in her left lower abdomen down to her groin. When these pains and cramps happen she is not able to go to the bathroom (bowel/bladder) and she feels like she is backing up. PT reports last night she was going to go to the ER but all they do is give her pain meds and send her home. She reports she had hydromorphone from a neck surgery andshe took one of those and it helped dull the pain a little bit, but she is very concerned. Denies any recent illness. Pt seen as new patient on 09/23 She initially developed muscle cramps in her suprapubic region in 2009. This has progressed to several different areas including: suprapubic region, abd, pelvis, lower extremities, upper extremities, and now her back. They occur daily. She is on baclofen 20mg TID. Around that time, she developed abnormal movements in her extremities LE>UE. She describes it as a a zapping, electric pain that radiates distally and causes involuntary movements in her extremities. These initially developed in her lower extremities. She is currently on gabapentin for this. She typically has to walk around for awhile in order to relieve her leg restlessness. She began experiencing unsteady gait around 2017 and was noted to have a possible right foot drop by a physical therapist. Around that time, she developed urinary and bowel incontinence. She has a bladder mesh and follows with urology. She reports transient neurologic symptoms beginning around 2018. She feels numbness rising in her head, followed by a pressure sensation, blurry vision, paresis in her LUE, and she would have troublegetting words out. These events have happened multiple times. She was started on Eliquis for atrialfibrillation around 2020 and the events stopped. She reports that these events may occur whenever she has to hold her Eliquis for tests, the most recent being 12/2022. She has had painful, swollen joints in her hand before. She drops items frequently. She had an operation in her hand to help with this. She reports following with Rheum and workup being negative for RA despite positive rheumatoid factor. She struggles with brain fog and forgetfulness. She occasionally has forgotten to pay her bills andhad to setup auto-pay for many of her bills. She has been on methylphenidate for a few years and takes it PRN. It can help with her brain fog. She has a history of 3 surgical operations for degenerative cervical spondylosis. The first was in 2007 for severe pain and paresthesias down her LUE. These symptoms did initially improve for 3 yearsuntil her symptoms recurred, and she had another surgery in 2009. Prior to her most recent surgery, 04/2023, she did not have any pain. She had no improvement in her symptoms with her most recent spinal surgery. She was being worked up for MS at the [facility] and was scheduled to start on Ocrevus in 10/2021. She had hip replacement surgery in Feb 2022 at [facility] and four days s/p surgery, she experienced full body paresis from her neck to her feet. 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 She needed to go to rehab after this event as she required a wheelchair. She occasionally experiences blurry vision but follows regularly with her day care attendant. * Telephone Encounter - Katarina Handy - 10/10/2023 11:04 AM EDT Copied from [facility] #[id number]. Topic: General Message - [facility] >> Oct 10, 2023 11:00 AM Katarina Shukla wrote: [facility] MESSAGE Time of call: 11:00 AM Caller: DANIELLE DENTON Caller's relationship to patient: n/a Calling from (pharmacy, hospital, agency, etc.): n/a Reason for call: Anna called and states she is having muscle cramps in her left arm and lower abdomen going into her groin area, she also states she is having trouble urinating and with bowel movements. She states the pain started yesterday morning. She would like a return call. If not feeling well, what are symptoms: n/a If having symptoms, how long have the symptoms been present: n/a Does caller request to speak to someone urgently? no Best telephone number for callback: [phone] Best time to return call: any Permission to leave message: yes Katarina Handy [facility] Negative Developer documented in this encounter Plan of Treatment Upcoming Encounters Date Type Department Care Team (Late st Contact Info) Description 07/19/2024 1:00 PM EDT Office Visit Neuromuscular Medicine at [address] [facility] [address] [facility] [place] [address] Richard Lewis MD [address] [facility] [place] [phone] Gaviota Wu MD 800 [facility] [place] [phone] 09/22/2024 9:30 AM EDT Follow Up [facility] [address] [place] [address] Richard Lewis MD 800 [place] [phone] documented as of this encounter Visit Diagnoses Not on filedocumented in this encounter Additional Health Concerns Assessment Noted Time PHQ-9 Depression Total Score: 0 09/24/19 24 9:25 AM EDT documented as of this encounter
--- OUTSIDE RECORDS SUMMARY | 2024-06-23 13:23 | XMS_ITS | Clinical Summary ---
Author Organization [facility] Address [address] [place] [phone] Care Team Providers Care Lead Machinist Name Role Phone Unavailable Primary Care Provider Unavailabl e Allergies Active Allergy Reactions Criticality Noted Date Comments Codeine Hives,Nausea And Vomiting,Other (See Comments),Rash High 07/09/2017 Hydrocodone-Acetaminoph en Dizziness,Nausea And Vomiting,Other (See Comments) Medium 11/27/2022 Lactose Other (See Comments),GI Upset Medium 07/04/2020 Mold Other (See Comments) Medium 01/27/2024 Burning and tinging feeling when exposed Oxycodone Nausea Low 09/24/2023 Oxycodone-Acetaminophen Nausea And Vomiting Low 05/2021 Penicillins Hives,Other (See Comments),Rash High 07/09/2017 Medications gabapentin (NEURONTIN) 600 mg tablet Take 2 tablets (1,200 mg total) by mouth at bedtime. 06/12/19 24 Active ELIQUIS 5 mg Tab tablet 03/03/20 23 Active baclofen (LIORESAL) 20 mg tablet Take 1 tablet (20 mg total) by mouth 3 (three) times daily. 07/21/19 24 Active lamoTRIgine XR (LAMICTAL XR) 200 mg 24 hr tablet 2 tablets Orally Once a day Active nitroGLYCERIN (NITROSTAT) 0.[address] 1 tablet under the tongue every 5 minutes if needed for chest pain for up to 3 doses Sublingual Once a day Active methylphenidat e HCl (RITALIN) 20 mg Immediate Release tablet Take 1 tablet (20 mg total) by mouth 2 (two) times daily. Active ergocalciferol (DRISDOL) 1,250 mcg (50,000 unit) capsule 12/20/19 Active buPROPion (WELLBUTRIN) 75 mg immediate release tablet 06/17/19 Active estradioL (CLIMARA) 0.075 mg/24 hr 02/26/20 Active omeprazole (PRILOSEC) 20 mg capsule Active valACYclovir (VALTREX) 500 mg tablet Take 1 tablet (500 mg total) by mouth 2 (two) times daily. 04/29/20 Active acetaminophen (TYLENOL) 500 mg tablet TAKE 2 TABLET ORALLY EVERY 8 HOURS NEEDED FOR MILD-MODERATE PAIN 04/10/20 Active biotin 10 mg Tab Take 1 tablet by mouth daily. Active docusate sodium (COLACE) 100 mg capsule Take 1 capsule (100 mg total) by mouth 2 (two) times daily. 04/10/20 Active diazePAM (VALIUM) 5 mg tabletIndicati ons:muscle spasm,Stiff person syndrome Take 1 tablet (5 mg total) by mouth 2 (two) times daily. 60 tablet 1 06/18/19 25 Active LORazepam (ATIVAN) 2 mg tablet 07/09/19 24 025 Discontinued tiZANidine (ZANAFLEX) 2 mg tabletIndicati ons:Muscle cramping Take 1 tablet (2 mg total) by mouth 2 (two) times daily as needed for muscle spasms. 120 tablet 1 01/27/20 24 025 Discontinued diazePAM (VALIUM) 5 mg tabletIndicati ons:muscle spasm,Stiff person syndrome Take 1 tablet (5 mg total) by mouth daily. 60 tablet 05/25/19 25 025 Discontinued(!R eorder (No Cancel Msg)) Encounters Date Type Department Care Team Description 06/21/2024 Telephone [facility] [address] [place] [address] Richard Lewis MD Other 06/18/2024 Refill [facility] [address] [place] [address] Richard Lewis MD Medication Refill; Other 06/11/2024 10:00 AM EST Nutrition Allergy & Immunology at 6 [facility] 6 [facility] [address] [place] [address] Unintentional weight loss (Primary Dx) 06/09/2024 Scanned Document INTERFACE DEFAULT 20 [place] [address] System, Provider Not In 06/08/2024 Telephone [facility] [address] [place] [address] Richard Lewis MD Other 05/25/2024 10:30 AM EST Follow Up [facility] [address] [place] [address] Richard Lewis MD Muscle cramping (Primary Dx); Unintentional weight loss; Weakness 03/26/2024 Scanned Document INTERFACE DEFAULT 20 [place] [address] System, Provider Not In from Last 3 Months Social History Tobacco Use Types Packs/Day Years Used Date Smoking Tobacco: Never Tobacco Cessation:Counseling Given: Not Answered PHQ-2 Answer Date Recorded PHQ-2 Total Score 0 05/25/2024 Interpersonal Safety Answer Date Record ed Is there anyone in your life that is hurting or threatening you in anyway? no 05/25/2024 Physical Indicators of Abuse No evidence of phys ical abuse 05/25/2024 Comments No Sex and Gender Information Value Date Recorded Sex Assigned at Not on file Legal Sex Female 2:58 PM EDT Gender Identity Female 09/23/2023 10:02 AM EDT Sexual Orientation Straight 09/23/2023 10 :02 AM EDT Last Filed Vital Signs Vital Sign Reading Time Taken Comments Blood Pressure 137/74 05/25/2024 10:15 AM EST Pulse 83 05/25/2024 10:15 AM EST Temperature 36.7 ??C (98 ??F) 05/25/2024 10: 15 AM EST Respiratory Rate 20 05/25/2024 10:1 5 AM EST Oxygen Saturation 100% 05/25/2024 10: 15 AM EST Inhaled Oxygen Concentration - - Weight 53.5 kg (118 lb) 05/25/2024 10:1 5 AM EST Height 160 cm (5' 3 ) 06/11/2024 1:38 PM EST per chart review Body Mass Index - - Plan of Treatment Upcoming Encounters Date Type Department Care Team (Late st Contact Info) Description 07/19/2024 1:00 PM EDT Office Visit Neuromuscular Medicine at [address] [facility] [place] [address] Richard Lewis MD 800 [facility] [place] [phone] Gaviota Wu MD [address] [place] [phone] 09/22/2024 9:30 AM EDT Follow Up [facility] 6 [facility] [address] [place] [address] Richard Lewis MD 800 [facility] [place] [phone] Health Maintenance Due Date Last Done Comments HIV screening 01/09/1973 Hepatitis C screening 01/09/1978 Tetanus adult (Td q 10,TDAP once) 1980 Cervical cancer screening 01/09/1981 Lipid disorder screening 2000 Colon cancer screening, Colonoscopy 01/09/2005 Diabetes screening 01/09/2005 Shingles vaccine (Shingrix) (2 of 2 - Shingrix (RZV) 2 Dose Standard Series) 02/07/2018 12/08/2017 Influenza vaccine 12/04/2023 03/12/2016 Covid-19 vaccine series ( season) 2024 09/14/2021, 12/13/2020 Pneumococcal Vaccine (50+ years) (1 of 1 - PCV) 01/09/2025 RSV Discussion (1 - 1-dose 7 5+ series) 01/09/2035 Meningococcal Vaccine Aged Out No kamla holly eligible based on patient's age to complete this topic Insurance [facility] [address], [place] [id number] [address]END [facility] MGD [facility] [place] [id number]
--- OUTSIDE RECORDS SUMMARY | 2024-06-23 13:23 | XMS_ITS | Data Portability ---
Author Organization [facility] Address [address] [address] Assessment No assessment recorded. 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, nasal cavity and accessory sinuses; Note: Date Diagnosed : 04/07/2020 1:44 PM (D14.0) Not Available [facility] 02:19:03 Ataxia 89175691 Active 2019 Ataxia, unspecifi ed; Note: Date Diagnosed : 04/07/2020 1:44 PM (R27.0) Not Available [facility] 4 02:18:41 Dysphagia 80247672 Active 2023 GISELA PRUETT MD 100 [facility],[place] [address], [place], [phone] , [facility] 10:19:25 Gastroeso phageal reflux disease without esophagit is 801324512 Active 2023 GISELA PRUETT MD 100 [facility],[place] [address], [place], [address] , [facility] - [facility] 4 10:19:44 Chronic hoarsenes s 67157155065 05 Active 2023 GISELA PRUETT MD 100 [facility],[place] [address], [place], [address] , [facility] - [facility] 10:20:46 Problem Notes None recorded. Procedures Surgical History Date Name Laterality Status Provider Name and Address Organization Details Recorded Time 11/11/2023 FFL_RE completed GISELA PRUETT MD 100 [facility],[place] [address], [place], [address], [facility] - [facility] 11/11/2023 10:26:08 Imaging Results Imaging Date Name [...] Name and Address Organization Details Recorded Time 77423 Product containin g penicilli n (product) medicatio n hives Not available Not available 09/16/2023 51022 8001 SNOMED React ion: skin rashe s, hives ;; Not Available [facility] 4 00:48:35 65323 codeine medicatio n nausea Not available Not available 09/16/2023 2670 RxNorm React ion: Stoma ch cramp s; Not Available [facility] 4 00:48:40 38611 acetamino phen / oxycodone medicatio n nausea Not available Not available 09/16/2023 77557 3 RxNorm React ion: nause a;; Not Available [facility] 4 00:48:40 Medications Name Sig Start Date [...] 20 mg tablet active Medicatio n ID: [id number] Br and Name: atorvasta tin Send Method: [...] release 24 hr active Medicatio n ID: [id number] Br and Name: isosorbid e mononitra te [...] 300 mg capsule active Medicatio n ID: [id number] Br and Name: gabapenti n Send Method: [...] 25 mg tablet active Medicatio n ID: [id number] Br and Name: metoprolo l tartrate Send [...] Updated DateTime 11/11/2023 160.02 cm 21.8 kg/m2 82506.86 g Delores Mejía [facility] 11/11/2023 09:58:27 Social History None recorded. Functional [...] Diagnosis Note [id number] GISELA PRUETT MD [facility] [address] [phone] 11/11/2023 09:08:06 11/11/2023 10:28:26 Dysphagia 33005095 R13.10 see below Gastroesop hageal reflux disease without esophagitis 173952243 K21.9 continue omeprazole per prescribin g provider Chronic hoarseness [address]09[address] 589[address] 105 R49.0 Her right vocal cord is sluggish. No glottic gap. Likely recovering after ACDF. MBS showed a safe swallow. I suspect her neuromuscu lar disorder may contribute to her dysphagia as well and I recommend she keep f/u with her neurologis ts at [facility]. No ENT interventi on needed. No tumors [...] Name 11/11/2023 1 [employer] (MEDICARE REPLACEMENT PPO) [id number] Elke Denton [id number] Ying Denton 11/11/2023 2 [employer] - [facility] BENEFIT PLAN MANAGEMENT (PPO) Ying Denton [id number] Ying Denton Notes Date Note Type Note [...] swallowing. She is being worked up at [facility] for a neurologic disorder. She has muscle cramping and she can't use her left arm well. On omeprazole for GERD. Hx of ACDF. She has had some voice trouble since with difficulty projecting. GISELA PRUETT MD 100 [facility],[place] [address], [place], [address], [facility] - [facility] 11/11/2023 10:28:19 OBGyn Episode No OBEpisode recorded.
--- OUTSIDE RECORDS SUMMARY | 2024-06-23 13:23 | XMS_ITS | Encounter Summary ---
Author Organization [facility] Address [address] [place] [phone] Care Team Providers Care Candy Catcher Name Role Phone Unavailable Primary Care Provider Unavailabl e Encounter Details Date Type Department Care Team (Late st Contact Info) Description 10/10/2023 Transcribed Orders CARE [facility]ENTER SCHEDULING [address] [place], [place] [address] Referral, Self Social History Tobacco Use Types Packs/Day Years [...] AM EDT documented as of this encounter Plan of Treatment Upcoming Encounters Date Type Department Care Team (Late st Contact Info) Description 07/19/2024 1:00 PM EDT Office Visit Neuromuscular Medicine at [address] [address] Richard Lewis MD [address] [place] [phone] Gaviota Wu MD [address] [place] [address] 09/22/2024 9:30 AM EDT Follow Up [facility] [address] [place] [address] Richard Lewis MD [address] [place] [address] documented as of this encounter Visit Diagnoses Not on filedocumented in this encounter Additional Health Concerns Assessment Noted Time PHQ-9 Depression Total Score: 0 09/24/19 24 9:25 AM EDT documented as of this encounter
--- OUTSIDE RECORDS SUMMARY | 2024-06-23 13:23 | XMS_ITS | Encounter Summary ---
Author Organization [facility] Address [address] [place] [phone] Care Team Providers Care Forensic Psychiatrist Name Role Phone Unavailable Primary Care Provider Unavailabl e Encounter Details Date Type Department Care Team (Late st Contact Info) Description 03/26/2024 Scanned Document INTERFACE DEFAULT [address] [place] [address] System, Provider Not In Social History Tobacco Use Types Packs/Day Years Used Date Smoking Tobacco: Never PHQ-2 Answer Date Recorded PHQ-2 Total Score 0 01/27/2024 Interpersonal Safety Answer Date Record ed Is there anyone in your life that is hurting or threatening you in anyway? no 01/27/2024 Physical Indicators of Abuse No evidence of phys ical abuse 01/27/2024 Comments Unknown Sex and Gender Information Value Date Recorded Sex Assigned at Not on file Legal Sex Female 2:58 PM EDT Gender Identity Female 09/23/2023 10:02 AM EDT Sexual Orientation Straight 09/23/2023 10 :02 AM EDT documented as of this encounter Plan of Treatment Upcoming Encounters Date Type Department Care Team (Late Contact Info) Description 07/19/2024 1:00 PM EDT Office Visit Neuromuscular Medicine at [address] [address] Richard Lewis MD [address] [place] [phone] Gaviota Wu MD [address] [place] [address] 09/22/2024 9:30 AM EDT Follow Up [facility] [address] [place] [address] Richard Lewis MD [address] [place] [address] documented as of this encounter Visit Diagnoses Not on filedocumented in this encounter Additional Health Concerns Assessment Noted Time PHQ-9 Depression Total Score: 0 01/27/20 8:26 AM EDT documented as of this encounter
--- OUTSIDE RECORDS SUMMARY | 2024-06-23 13:23 | XMS_ITS | Clinical Summary ---
Author Organization [facility] Address [address] [place] [address] Care Team Providers Care Ditch Digger Name Role Phone Gustavo Suarez DO Primary Care Provider Allergies Active Allergy Reactions Criticality Noted Date [...] 5 12/01/2023 Active ergocalciferol (VITAMIN D2) capsule 57844 units Take 1 capsule (50,000 Units total) [...] age to complete this topic Care Teams Ditch Digger Relationship Specialty Start Date End Date Gustavo Suarez DO [address] [place] [phone] PCP - General Internal Medicine 06/23/18
--- OUTSIDE RECORDS SUMMARY | 2024-06-23 13:23 | XMS_ITS | Encounter Summary ---
Author Organization [facility] Address [address] [place] [phone] Care Team Providers Care Impregnator Helper Name Role Phone Unavailable Primary Care Provider Unavailabl e Encounter Details Date Type Department Care Team (Late st Contact Info) Description 03/08/2024 Scanned Document INTERFACE DEFAULT [address] [place] [address] System, Provider Not In Social History Tobacco [...] EDT Office Visit Neuromuscular Medicine at [address] [address] Richard Lewis MD [address] [place] [phone] Gaviota Wu MD [address] [place] [address] 09/22/2024 9:30 AM EDT Follow Up [facility] [address] [place] [phone] Richard Lewis MD [address] [place] [phone] documented as of this encounter Procedures Procedure Name Priority Date/Time Associated Diagnosis Comments CT RESULT SCAN 03/08/2024 12:00 AM EST CARDIAC EKG RESULT SCAN 03/08/2024 12:00 AM EST LAB SCAN 03/08/2024 12:00 AM EST documented in this encounter Results * CT Result Scan (03/08/2024 12:00 AM EST) Provider Not In System IMG SCAN REPORTS Final Re sult * Cardiac EKG Result Scan (03/08/2024 12:00 AM EST) us Provider Not In System CV CARDIAC REPORT (CVR) F inal Result * Lab Scan (03/08/2024 12:00 AM EST) us Provider Not In System LAB BLOOD ORDERABLES Isabela l Result documented in this encounter Visit Diagnoses Not on filedocumented in this encounter Additional Health Concerns Assessment Noted Time PHQ-9 Depression Total Score: 0 01/26/ 24 8:26 AM EDT documented as of this encounter
--- OUTSIDE RECORDS SUMMARY | 2024-06-23 13:23 | XMS_ITS | Clinical Summary ---
Author Organization [facility] Address [address] [address] Phone Care Team Providers Care Automobile Locator Name Role Phone Gustavo Suarez DO Primary Care Provider [phone] Allergies Active Allergy Reactions Criticality Noted Date [...] formulations. However, I do believe that her rn clinical resource should weigh in on this as well. Therefore, I will send a copy of today's note. Her current dose of estradiol is 0 0.075 mg per 24 hours changed weekly. I cannot find in the chart where her previous dose was but according to the notes it was decreased to this current dose. If her rn clinical resource is in agreement, she will call when she needs a refill. Family History Medical History Relation Comments Heart [...] age to complete this topic Insurance [employer] MCR ADV PPO ([id number]) [employer] MCR ADV PPO ([id number]) [id number] Care Teams Automobile Locator Relationship Specialty Start Date End Date Gustavo Suarez DO [address] [place] [address], [place] PCP - General 05/15/20
--- OUTSIDE RECORDS SUMMARY | 2024-06-23 13:23 | XMS_ITS | Encounter Summary ---
Author Organization [facility] and [facility] Address [address] [place] [address] Care Team Providers Care Community Association Manager Name Role Phone Unavailable Primary Care Provider Unavailabl e Encounter Details Date Type Department Care Team (Late st Contact Info) Description 08/08/2023 Scanned Document [facility] [address] [phone] Marquita Gallegos MD [address] [place] [phone] Social History Tobacco Use Types Packs/Day Years [...] EDT Office Visit Neuromuscular Medicine at 800 [facility] [address] [place], [place] [address] Richard Lewis MD [address] [place] [phone] Gaviota Wu MD [address] [place] [address] 09/22/2024 9:30 AM EDT Follow Up [facility] [address] [place] [phone] Richard Lewis MD [address] [place] [phone] documented as of this encounter Visit Diagnoses Not on filedocumented in this encounter
--- OUTSIDE RECORDS SUMMARY | 2024-06-23 13:24 | XMS_ITS | Encounter Summary ---
Author Organization [facility] and [facility] Address [address] [place] [phone] Care Team Providers Care Joint Creaser Name Role Phone Unavailable Primary Care Provider Unavailabl e Reason for Visit * Reason Onset Date Comments Other 06/21/2024 Encounter Details Date Type Department Care Team (Late st Contact Info) Description 06/21/2024 Telephone [facility] [address] [place] [address] Richard Lewis MD [address] [place] [address] Other Social History Tobacco Use Types Packs/Day Years [...] encounter Miscellaneous Notes * Telephone Encounter - Jocelyn Tom RN - 06/21/2024 2:47 PM EST Spoke to Anna who states she was having increased spasms over the weekend. She did not increase her Valium to BID as instructed on Friday, she thought she had to pick pulling machine tender the new prescription to do so. Advised to increase to BID, she states she did take the evening dose last night and feels better today. Instructed to continue BID. She is asking to see Dr Lewis sooner than September, sent message to senior front end web developer to schedule with Reed Garcia in the next few weeks via video visit. Patient will call if any issues. documented in this encounter Plan of Treatment Upcoming Encounters Date Type Department Care Team (Late st Contact Info) Description 07/19/2024 1:00 PM EDT Office Visit Neuromuscular Medicine at 800 [facility] 800 [facility] [place] [address] Richard Lewis MD [address] [place] [address] [place] [address] aGviota Wu MD 800 [facility] [address] 09/22/2024 9:30 AM EDT Follow Up [facility] [address] [place] [address] Richard Lewis MD 800 [facility] [place] [address] documented as of this encounter Visit Diagnoses Not on filedocumented in this encounter Additional Health Concerns Assessment Noted Time PHQ-9 Depression Total Score: 0 01/27/20 8:26 AM EDT documented as of this encounter
--- OUTSIDE RECORDS SUMMARY | 2024-06-23 13:24 | XMS_ITS | Referral Summary ---
Author Organization [facility] Address [address] [place] [address] Care Team Providers Care Lens Cleaner Name Role Phone Gustavo Suarez Primary Care Provider Allergies Active Allergy Reactions [...] Plan of Treatment Not on file Insurance [facility] [place] * Guarantor: DANIELLE NUGENT Account Type Relation to Patient Date of Phone Billing Address Personal/Family 1960 Care Teams Lens Cleaner Relationship Specialty Start Date End Date Gustavo Suarez [address] [place] [address] [place] [address] PCP - General Internal Medicine 11/13/22
--- OUTSIDE RECORDS SUMMARY | 2024-06-23 13:24 | XMS_ITS ---
Author Organization [facility] Address [address] [facility] et [facility] [place] [address] Care Team Providers Care Public Relations Assistant Name Role Phone Gustavo Suarez MD Primary Care Provider Unavail Magen Castro Unavailable [phone] REASON FOR VISIT Issue with boot Encounters Encounter Location Date Provider [facility] [address] [place] [address] 12/09/2023 Magen Acevedo Plan Of Treatment No Information Progress Notes * BERTINJoselineDOB:[birth year] (63 yo F)Acc No.[id number]:12/09/2023 Patient:?Ying Denton :1960???Age:63 Y???Sex:Female Address:[place] [address] * true * Date:? Generated for Kristeni aldair/Sierra/eTransmitting on:?06/23/2024 01:24 PM EST
--- OUTSIDE RECORDS SUMMARY | 2024-06-23 13:24 | XMS_ITS ---
Author Organization [facility] Address [address] [place] [address] Care Team Providers Care Sheetmetal Trades Worker Name Role Phone Gustavo Suarez MD Primary Care Provider Unavail Magen Castro Unavailable [phone] REASON FOR VISIT [id number] Encounters Encounter Location Date Provider Diagnosis [facility] [address] [place] [address] 12/11/2023 Magen Acevedo Plan Of Treatment No Information Progress Notes * JOVANNAJoselineDOB:[birth year] (63 yo F)Acc No.[id number]:12/11/2023 Patient:?Ying Denton :1960???Age:63 Y???Sex:Female Address:[place] [address] * true * Date:? Generated for Printi aldair/Sierra/eTransmitting on:?06/23/2024 01:24 PM EST
--- OUTSIDE RECORDS SUMMARY | 2024-06-23 13:24 | XMS_ITS ---
Author Organization Gustavo Suarez DO [facility] Address [address] [place], [place] [id number] Care Team Providers Care Ladle Car Operator Name Role Phone Gustavo Suarez Primary Care Provider REASON FOR VISIT Needs call back from office Encounters Encounter Location Date Provider Diagnosis Gustavo Suarez DO, FACP [address] [place] [phone] 03/12/2024 Gustavo Suarez PLAN OF TREATMENT No Information
--- OUTSIDE RECORDS SUMMARY | 2024-06-23 13:24 | XMS_ITS | Encounter Summary ---
Author Organization [facility] and [facility] Address [address] [place] [phone] Care Team Providers Care Border Measurer Name Role Phone Unavailable Primary Care Provider Unavailabl e Reason for Visit * Reason Onset Date Comments Other 06/08/2024 Encounter Details Date Type Department Care Team (Late st Contact Info) Description 06/08/2024 Telephone [facility] [address] [place] [address] Richard Lewis MD [address] [place] [address] Other Social History Tobacco Use [...] encounter Miscellaneous Notes * Telephone Encounter - Caridad Bunch RN - 06/09/2024 4:27 PM EST Spoke with patient faxed Pt referral to the fax number provided. * Telephone Encounter - Zonia Callejas PCT - 06/09/2024 4:12 PM EST Pt. Called to give the information needed to send referral for PT. Please call her * Telephone Encounter - Jocelyn Tom RN - 06/08/2024 12:29 PM EST Called patient who is calling to update Dr Lewis regarding the Valium he started. She states it has been life changing for her. Her muscle cramping is relieved. She is weaning down her lorazepam at also. * Telephone Encounter - Zonia Callejas PCT - 06/08/2024 12:15 PM EST Pt. Called to update provider regarding how she is doing taking new medication. Please call her to discuss documented in this encounter Plan of Treatment Upcoming Encounters Date Type Department Care Team (Late st Contact Info) Description 07/19/2024 1:00 PM EDT Office Visit Neuromuscular Medicine at [address] [place] [address] Richard Lewis MD [address] [place] [phone] Gaviota Wu MD [address] [place] [phone] 09/22/2024 9:30 AM EDT Follow Up [facility] [address] [place] [address] Richard Lewis MD [address] [place] [address] documented as of this encounter Visit Diagnoses Not on filedocumented in this encounter Additional Health Concerns Assessment Noted Time PHQ-9 Depression Total Score: 0 01/27/20 24 8:26 AM EDT documented as of this encounter
--- OUTSIDE RECORDS SUMMARY | 2024-06-23 13:24 | XMS_ITS | Encounter Summary ---
Author Organization [facility] Address [address] [place] [address] Care Team Providers Care Body Wirer Name Role Phone Gustavo Suarez DO Primary Care Provider [phone] Reason for Visit * Reason Onset Date Comments No Show 06/11/2024 Encounter Details Date Type Department Care Team (Late st Contact Info) Description 06/11/[address] [facility] [address] [facility] [address] [place] [address] Richard Santamaria MD 300 [facility] [address] [place], [place] [phone] No Show Social History Tobacco Use Types Packs/Day Years Used Date Smoking Tobacco: Former Cigarettes Q uit: 06/05/1995 Smokeless Tobacco: Never Alcohol Use Standard Drinks/Week Comments Not Currently 0 (1 standard drink = 0.6 oz pur e alcohol) Comments Unknown Sex and Gender Information Value Date Recorded Sex Assigned at Female 04/05/2024 2:12 PM EST Legal Sex Female 9:44 AM EST Gender Identity Female 04/05/2024 2:12 PM EST Sexual Orientation Straight 04/05/2024 2: 12 PM EST documented as of this encounter Progress Notes * Layne Moran MA - 06/11/2024 2:17 PM EST Letter sent with information on no showed appointment and no show policy documented in this encounter Plan of Treatment Upcoming Encounters Date Type Department Care Team (Late st Contact Info) Description 07/28/2024 8:50 AM EDT Office Visit [facility] [address] [place] [address] Ziggy Ventura MD [address] [place] [address] [address] [place] [address] 08/02/2024 8:[address] [facility] [address] [place] [phone] Richard Santamaria MD [address] [place] [address] documented as of this encounter Visit Diagnoses Not on filedocumented in this encounter Care Teams Body Wirer Relationship Specialty Start Date End Date Gustavo Suarez DO [address] [place] [phone] PCP - General 11/28/09 documented as of this encounter
--- OUTSIDE RECORDS SUMMARY | 2024-06-23 13:24 | XMS_ITS ---
Author Organization [facility] Address [address] [place] [phone] Care Team Providers Care Ballast Cleaning Operator Name Role Phone LAYA MUJICA Primary Care Provider Gustavo Amador Unavailable [phone] ALLERGIES Allergen (clinical drug ingredient) Drug/Non Drug [...] 1 Orally Three times a day Active SOCIAL HISTORY Tobacco Use: Social History Observation Description Date Details (start date - stop date) Former Smoker NA - NA Sex Assigned At : Social History Observation Description Sex Assigned At Unknown Tobacco Use/Smoking Question Answer Notes Patient is a former smoker When did you stop smoking? 1990 PROBLEMS Problem Type ICD Code Onset Dates Problem Status W/U Status Risk SNOMED Code Notes Problem Colon cancer screening (Z12.11) Active confirmed Colon cancer screening (313832409) Problem Constipation (K59.00) Active confirmed Constipation (41151705) Problem IBS (irritable bowel syndrome) (K58.9) Active confirmed Irritable bowel syndrome (72360917) Problem Abdominal pain, left lower quadrant (R10.32) Active confirmed Left lower quadrant pain (685325110) Problem Personal history of adenomatous and serrated colon polyps (Z86.0101) Active confirmed VITAL SIGNS BMI 21.78 kg/m2 05/20/2024 Blood pressure systolic 00 mm Hg 05/20/19 25 Blood pressure diastolic 00 mm Hg 025 Height 62.5 in 05/20/2024 Weight 121 lbs 05/20/2024 Encounters Encounter Location Date Provider Diagnosis [facility] [address] [place] [address] 05/20/2024 Gustavo Sofia Colon cancer screeni ng Z12.11 ; IBS (irritable bowel syndrome) K58.9 ; History of adenomatous polyp of colon Z86.010 ; Constipation K59.00 and Abdominal pain, left lower quadrant R10.32 ASSESSMENTS Encounter Date Diagnosis Assessment Notes Treatment Notes Treatment Clinical Notes 05/20/2024 Colon cancer screening (ICD-10 - Z12.11) We will obtain a copy of the [facility] Colonoscopy from 2020 and will then decide at the next office visit if you need a screening colonoscopy this year or whether it can wait until 2025. 05/20/2024 IBS (irritable bowel syndrome) (ICD-10 - K58.9) 05/20/2024 History of adenomatous polyp of colon (ICD-10 - Z86.010) 05/20/2024 Constipation (ICD-10 - K59.00) 05/20/2024 Abdominal pain, left lower quadrant (ICD-10 [...] We will obtain a copy of the [facility] Colonoscopy from 2020 and will then decide at the next office visit if you need a screening colonoscopy this year or whether it can wait until 2025. Next Appt Details Follow Up: 2024, Jorge Lo n: Provider Name:Gustavo Sofia , 01/18/2025 09:30:00 AM, [address] [place] [address], [address], [place], [address], Progress Notes * Examination Category Sub-Category Detail Notes General Examination GENERAL APPEARANCE: pleasant , well nourished, well developed, in no acute distress EYES: sclera non-icteric NECK/THYROID: no cervical lymphade nopathy, neck supple HEART: S1, S2 normal LUNGS: clear to auscultatio n bilaterally ABDOMEN: normal bowel sounds, no guarding or rigidity, no hepatosplenomegaly, no masses palpable, soft, nontender, nondistended. NEUROLOGIC: alert and oriented SKIN: nonjaundiced, no spi rolo angiomata. EXTREMITIES: no edema ORAL CAVITY: mucosa moist
--- OUTSIDE RECORDS SUMMARY | 2024-06-23 13:24 | XMS_ITS | Clinical Summary ---
Author Organization [facility] Address [address] [facility] [address] [place] [address] Phone Care Team Providers Care Dyeing Machine Feeder Name Role Phone Gustavo Suarez DO Primary Care Provider [phone] Allergies Active Allergy Reactions Criticality Noted Date Comments Adhesive 05/18/2024 Skin reaction to regular and allergan holter monitor adhesives. Codeine Nausea And Vomiting Medium 07/09/2017 Penicillins Medium 07/09/2017 Other Reaction(s): Rash/Dermatitis Hydrocodone-Acetaminoph en Nausea And Vomiting 03/25/2024 Medications lamoTRIgine (LaMICtal) 200 mg tablet Take 2 [...] at bedtime. 60 tablet 5 05/20/2024 Active Active Problems Problem Noted Date Diagnosed Date CAD (coronary artery disease) 06/09/2024 Non-ST elevation ND (NSTEMI) 06/09/2024 Dizziness 04/14/2024 Assessment & Plan (04/14/2024 4:08 [...] this time she is working with a code enforcement supervisor and will continue to work on dietary [...] Encounters Date Type Department Care Team Description 06/11/2024 Telephone [facility] [address] [place] [phone] Richard Santamaria MD No Show 05/27/2024 11:00 AM EST Ancillary Procedure [facility] Cardiology [facility] [address] [place] [phone] Shortness of breath; Chest pain, unspecified type 05/13/[address] [facility] [address] [place] [address] Gustavo Suarez DO Medical Records 05/07/[address] [facility] [address] [place] [phone] Ziggy Ventura MD Allergic Reaction 05/06/2024 11:00 AM EST Ancillary Procedure [facility] [address] [place] [phone] PAF (paroxysmal atrial fibrillation) (CMS/HCC); Dizziness; PVC's (premature ventricular contractions) 04/30/2024 Telephone [facility] Card[facility] [address] [place] [phone] Cardiology, [facility] [employer] - OON May 05 04/21/2024 Telephone [facility] [address] [facility] [address] [place] [address] Ziggy Ventura MD Med Refill 04/14/2024 1:10 PM EST Office Visit [facility] [address] [place] [address] Kimberly Abreu NP Coronary artery disease involving knik coronary artery of knik heart, unspecified whether angina present (Primary Dx); PAF (paroxysmal atrial fibrillation) (CMS/HCC); Dizziness; Hyperlipidemia, unspecified hyperlipidemia type; PVC's (premature ventricular contractions) 04/14/[address] [facility] [address] [place] [address] Ziggy Ventura MD FYI 04/07/2024 Telephone [facility] Card[facility] [address] [place] [phone] Swathi Geller NP 04/05/2024 1:44 PM EST - 04/06/2024 11:25 AM EST Emergency [facility] Emergency [address] [place] [phone] Enriuqe Moyer MD Cauchon, Matthew C, DO Chest pain, unspecified type (Primary Dx) Discharge Disposition: Another Health Care Institution Not Defined 03/31/[address] [facility] [address] [facility] [address] [place] [address] Ziggy Ventura MD Results; breathing issues ; cath (Cath ) 03/25/2024 2:00 PM EST Ancillary Procedure [facility] [address] [place] [address] Chest pain, unspecified from Last 3 Months Surgical History Surgery [...] Orientation Straight 04/05/2024 2: 12 PM EST Obstetrics History Last Filed Vital Signs Vital [...] Description 07/28/2024 8:50 AM EDT Office Visit [facility] [address] [place] [address] Ziggy Ventura MD [address] [place] [address] [place] [address] 08/02/2024 8:40 AM EDT Consult [facility] Cardiology [facility] [address] [place] [address] Richard Santamaria MD [address] [place] [address] Health Maintenance Due Date Last Done Comments Breast Cancer Screening 1960 DTaP,Tdap,and Td Vaccines (1 - Tdap) 01/09/1979 Cervical Cancer Screening: P ap Smear 01/09/1981 Pneumococcal Vaccine: 50+ Years (1 of 1 - PCV) 01/09/2010 Zoster Vaccines (2 of 2) 02/02/2018 12/08/2017 [...] patient's age to complete this topic Meningococcal B Vacine Aged Out No lo nger eligible based on patient's age to complete [...] 03/25/2024 4:05 PM EST Chest pain, unspecified from Last 3 Months Results * (ABNORMAL) TRANSTHORACIC ECHOCARDIOGRAM (TTE) COMPLETE (05/27/2024 11:59 AM EST) Left Atrium Minor [place] 5.3 cm CV PACS Left Atrium Major [place] 4.3 cm CV PACS LA Area Sys [...] Details Overall the study quality was adequate. us Ziggy Ventura MD CV ECHO PROCEDURES Final Resul t * CARDIAC HOLTER MONITOR (REPORT GENERATED IN HOUSE) (05/06/2024 10:46 AM EST) Anatomical Region Laterality Modality Cardiac Diagnost ic Narrative 05/14/2024 1:21 PM EST [facility] DIAGNOSTIC TESTING DEPARTMENT [address] [place] [address] TEL: FAX: Type of Test: 48 Hour [...] Kimberly Abreu NP CV CARDIAC SERVICES PROCEDURES Final Result * ECG 12 lead (04/14/2024 3:38 PM EST) Only the most recent of3 resultswithin the time period is included. Ventricular Rate ECG 80 BPM GEMUSE Atrial Rate 80 BPM GEMUSE P-R Interval 190 ms GEMUSE QRS Duration 80 ms GEMUSE Q-T Interval 374 ms GEMUSE QTc 431 ms GEMUSE P Wave [place] 70 degrees GEMUSE R [place] 58 degrees GEMUSE T [place] 72 degrees GEMUSE ECG Interpretation Sinus rhythm with occasional Premature ventricular complexes Otherwise normal ECG When compared with ECG of 05-APR-2024 23:04, Premature ventricular complexes are now Present Confirmed by GABBIE GREEN ([id number]) on 04/14/2024 4:30:39 PM GEMUSE 04/14/2024 1:21 PM EST 04/14/2024 4:30 PM EST Kimberly Abreu NP ECG ORDERABLES Edited Result - Final GEMUSE * Troponin I high sensitivity (04/05/2024 4:18 PM EST) Only the most recent of2 resultswithin the time period is included. Pathologist [facility] High Sensitivity Troponin I 8 <=54 ng/L LAB CHEMISTRY METHOD 04/05/2024 4:54 PM EST [facility] Blood Venous blood specimen / Unknown Venipuncture / Unknown 04/05/2024 4:18 PM EST 04/05/2024 4:25 PM EST Narrative [facility] - 04/05/2024 4:54 PM EST High levels of biotin in samples may falsely decrease hsTroponin values. ??Use caution when interpreting hsTroponin results in patients taking biotin who exhibit renal impairment (eGFR <60) or in patients taking more than 20 mg/day of biotin. Enrique Moyer MD LAB BLOOD ORDERABLES Final Result [facility] [address] [place] [address], [place] [phone] * XR Chest 2 Views (04/05/2024 3:14 [...] Signed Date: 04/05/2024 15:18 ET Workstation ID: [id number] Transcribed By: Self Edit Transcribed Date: 04/05/2024 [...] Signed Date: 04/05/2024 15:18 ET Workstation ID: [id number] Transcribed By: Self Edit Transcribed Date: 04/05/2024 15:16 ET us Enrique Moyer MD IMG XR PROCEDURES Final Res ult * (ABNORMAL) CBC auto differential (04/05/2024 2:46 PM EST) WBC 3.8(L) 4.8 - 10.8 K/mcL LAB HEMETOLOGY METHOD 04/05/2024 3:10 PM EST [facility] RBC 3.90 3.80 - 4.80 M/mcL LAB HEMETOLOGY METHOD 04/05/2024 3:10 PM EST [facility] Hemoglobin 12.3 11.5 - 16.0 g/dL LAB HEMETOLOGY METHOD 04/05/2024 3:10 PM [facility] Hematocrit 37.2 35.0 - 47.0 % LAB HEMETOLOGY METHOD 04/05/2024 3:10 PM [facility] MCV 95.1 79.0 - 98.0 FL LAB HEMETOLOGY METHOD 04/05/2024 3:10 PM EST [facility] MCH 31.5 27.0 - 32.0 pcg LAB HEMETOLOGY METHOD 04/05/2024 3:10 PM [facility] MCHC 33.1 32.0 - 37.0 g/dL LAB HEMETOLOGY METHOD 04/05/2024 3:10 PM [facility] RDW 13.4 11.0 - 15.0 % LAB HEMETOLOGY METHOD 04/05/2024 3:10 PM [facility] Platelets 263 130 - 400 K/mcL LAB HEMETOLOGY METHOD 04/05/2024 3:10 PM [facility] MPV 9.9 7.0 - 11.0 FL LAB HEMETOLOGY METHOD 04/05/2024 3:10 PM [facility] NRBC 0.0 <1.0 % LAB HEMETOLOGY METHOD 04/05/2024 3:10 PM [facility] NRBC Absolute 0.00 <0.10 K/mcL LAB HEMETOLOGY METHOD 04/05/2024 3:10 PM [facility] Neutrophils Relative 41.1 % LAB HEMETOLOGY METHOD 04/05/2024 3:10 PM [facility] Lymphocytes Relative 47.0 % LAB HEMETOLOGY METHOD 04/05/2024 3:10 PM [facility] Monocytes Relative 9.2 % LAB HEMETOLOGY METHOD 04/05/2024 3:10 PM [facility] Eosinophils Relative 1.6 % LAB HEMETOLOGY METHOD 04/05/2024 3:10 PM [facility] Basophils Relative 0.8 % LAB HEMETOLOGY METHOD 04/05/2024 3:10 PM [facility] Immature Granulocytes Relative 0.3 % LAB HEMETOLOGY METHOD 04/05/2024 3:10 PM [facility] Neutrophils Absolute 1.56 1.50 - 7.00 K/mcL LAB HEMETOLOGY METHOD 04/05/2024 3:10 PM [facility] Lymphocytes Absolute 1.78 1.00 - 5.00 K/mcL LAB HEMETOLOGY METHOD 04/05/2024 3:10 PM [facility] Monocytes Absolute 0.35 0.20 - 1.00 K/mcL LAB HEMETOLOGY METHOD 04/05/2024 3:10 PM [facility] Eosinophils Absolute 0.06 0.00 - 0.50 K/mcL LAB HEMETOLOGY METHOD 04/05/2024 3:10 PM EST [facility] Basophils Absolute 0.03 0.00 - 0.20 K/[facility] LAB HEMETOLOGY METHOD 04/05/2024 3:10 PM EST [facility] Immature Granulocytes Absolute 0.01 0.00 - 0.03 K/[facility] LAB HEMETOLOGY METHOD 04/05/2024 3:10 PM EST [facility] Blood Venous blood specimen / Unknown Venipuncture / Unknown 04/05/2024 2:46 PM EST 04/05/2024 2:59 PM EST Enrique Moyer MD LAB BLOOD ORDERABLES Final Result Performing Organization Address [facility]/ZIP Co de Phone Number [facility] [address] [place] [address], * B-type natriuretic peptide (04/05/2024 2:46 PM EST) BNP 38 <=100 pcg/mL LAB CHEMISTRY METHOD 04/05/2024 3:32 PM EST [facility] Blood Venous blood specimen / Unknown Venipuncture / Unknown 04/05/2024 2:46 PM EST 04/05/2024 2:59 PM EST Enrique Moyer MD LAB BLOOD ORDERABLES Final Result [facility] [address] [place] [address], [place] [phone] * Magnesium (04/05/2024 2:46 PM EST) Magnesium 2.1 1.9 - 2.6 mg/dL LAB CHEMISTRY METHOD 04/05/2024 3:26 PM EST [facility] Blood Venous blood specimen / Unknown Venipuncture / Unknown 04/05/2024 2:46 PM EST 04/05/2024 2:59 PM EST Enrique Moyer MD LAB BLOOD ORDERABLES Final Result Performing Organization Address City/[facility]/ZIP Co de Phone Number [facility] [address] [place] [address], [place] [phone] * Lipase (04/05/2024 2:46 PM EST) Pathologist [facility] Lipase 26 13 - 75 unit/L LAB CHEMISTRY METHOD 04/05/2024 3:26 PM [facility] Blood Venous blood specimen / Unknown Venipuncture / Unknown 04/05/2024 2:46 PM EST 04/05/2024 2:59 PM EST Enrique Moyer MD LAB BLOOD ORDERABLES Final Result Performing Organization Address [facility] de Phone Number [facility] [address] [place] [address], [place] [phone] * (ABNORMAL) Comprehensive metabolic panel (04/05/2024 2:46 PM EST) [facility] Sodium 145 133 - 145 mmol/L LAB CHEMISTRY METHOD 04/05/2024 3:28 PM [facility] Potassium 3.8 3.5 - 5.5 mmol/L LAB CHEMISTRY METHOD 04/05/2024 3:28 PM [facility] Chloride 111(H) 96 - 110 mmol/L LAB CHEMISTRY METHOD 04/05/2024 3:28 PM [facility] CO2 26 21 - 32 mmol/L LAB CHEMISTRY METHOD 04/05/2024 3:28 PM [facility] Anion Gap 8 3 - 11 LAB CHEMISTRY METHOD 04/05/2024 3:28 PM [facility] Glucose 84 70 - 100 mg/dL LAB CHEMISTRY METHOD 04/05/2024 3:28 PM [facility] BUN 9 5 - 25 mg/dL LAB CHEMISTRY METHOD 04/05/2024 3:28 PM [facility] Creatinine 0.63 0.50 - 1.10 mg/dL LAB CHEMISTRY METHOD 04/05/2024 3:28 PM [facility] eGFR 99 >=60 mL/min/1. 73m2 LAB CHEMISTRY METHOD 04/05/2024 3:28 PM [facility] Comment:Calculation based on the??Chronic Kidney Disease Epidemiology Collaboration (CKD-EPI) equation refit??without adjustment for race. BUN/Creatinine Ratio 14.3 LAB CHEMISTRY METHOD 04/05/2024 3:28 PM [facility] Calcium 9.5 8.5 - 10.5 mg/dL LAB CHEMISTRY METHOD 04/05/2024 3:28 PM [facility] AST (SGOT) 24 10 - 42 unit/L LAB CHEMISTRY METHOD 04/05/2024 3:28 PM [facility] ALT (SGPT) 19 10 - 60 unit/L LAB CHEMISTRY METHOD 04/05/2024 3:28 PM [facility] Alkaline Phosphatase 65 42 - 121 unit/L LAB CHEMISTRY METHOD 04/05/2024 3:28 PM [facility] Total Protein 6.6 6.0 - 8.0 g/dL LAB CHEMISTRY METHOD 04/05/2024 3:28 PM [facility] Albumin 3.7 3.2 - 5.0 g/dL LAB CHEMISTRY METHOD 04/05/2024 3:28 PM [facility] Total Bilirubin 0.6 0.0 - 1.4 mg/dL LAB CHEMISTRY METHOD 04/05/2024 3:28 PM [facility] Blood Venous blood specimen / Unknown Venipuncture / Unknown 04/05/2024 2:46 PM EST 04/05/2024 2:59 PM EST Enrique Moyer MD LAB BLOOD ORDERABLES Final Result [facility] [address] [place] [address], [place] [phone] * ECG-Outside (04/05/2024) us Provider Onbase MD ECG ORDERABLES Final Result * ECG-Annotated (04/05/2024) Only the most recent of2 resultswithin the time period is included. us Provider Onbase MD ECG ORDERABLES Final Result * NM LEXISCAN STRESS TEST W/ MYOCARDIAL [...] was 67%. Enrique Moyer MD CV STRESS PROCEDURES Final Result from Last 3 Months Insurance [employer] MED[employer]ARE ADVANTAGE [employer] Advance Directives Documents on File Type Date Recorded Patient Accounting Reconciliation Clerk Expl anation Health Care Decision (hx) 02/15/2022 AD SPAULDING DIRECTIVE Health Care Decision (hx) 02/15/2022 AD SPAULDING DIRECTIVE Health Care Decision (hx) 02/15/2022 AD SPAULDING DIRECTIVE Care Teams Dyeing Machine Feeder Relationship Specialty Start Date End Date Gustavo Suarez DO [address] [place] [phone] PCP - General 11/28/09
--- OUTSIDE RECORDS SUMMARY | 2024-06-23 13:24 | XMS_ITS | Encounter Summary ---
Author Organization [facility] Address [address] [place] [phone] Care Team Providers Care Computer Bookkeeper Name Role Phone Unavailable Primary Care Provider Unavailabl e Reason for Visit * Reason Onset Date Comments Medication Refill 06/18/2024 Other 06/18/2024 Encounter Details Date Type Department Care Team (Late st Contact Info) Description 06/18/2024 [facility]ill [facility] [address] [place] [address] Richard Lewsi MD [address] [place] [phone] Medication Refill; Other Social History Tobacco Use Types Packs/Day [...] Telephone Encounter - Jocelyn Tom RN - 06/18/2024 3:38 PM EST Called patient to instruct her to increase valium from 5 mg daily to 5 mg BID. Advised we will send a new prescription. * Telephone Encounter - Jocelyn Tom RN - 06/18/2024 2:50 PM EST Patient states she started taking Valium 5 mg daily after seeing Dr Lewis on 05/25/2024. She said it is not helping with spasm or cramping. She is c/o bilateral calf and rodriguez cramps/ spasm. She is using Biofreeze and stretching. She states the stretching feels good while she is doing it but the spasm returns when she stops. Denies numbness and tingling anywhere. * Telephone Encounter - Zonia Callejas PCT - 06/18/2024 2:41 PM EST Pt. Returned call as she missed the call going to PT this am. * Telephone Encounter - Jocelyn Tom RN - 06/18/2024 10:37 AM EST Called patient, no answer, LVM to call office to discuss. * Telephone Encounter - Zonia Callejas PCT - 06/18/2024 10:00 AM EST Pt. Called to speak with a RN as she is having issues with medication efficacy. She is taking diazepam and feels it is not as effective. Please call her before 11 am or after 12 p as she will be at aPT appt. documented in this encounter Plan of Treatment Upcoming Encounters Date Type Department Care Team (Late st Contact Info) Description 07/19/2024 1:00 PM EDT Office Visit Neuromuscular Medicine at [address] [facility] [address] [facility] [place] [address] Richard Lewis MD [address] [place] [phone] Gaviota Wu MD [address] [place] [phone] 09/22/2024 9:30 AM EDT Follow Up [facility] [address] [place] [address] Richard Lewis MD [address] [place] [phone] documented as of this encounter Visit Diagnoses Not on filedocumented in this encounter Additional Health Concerns Assessment Noted Time PHQ-9 Depression Total Score: 0 01/27/20 24 8:26 AM EDT documented as of this encounter
--- OUTSIDE RECORDS SUMMARY | 2024-06-23 13:24 | XMS_ITS ---
Author Organization [facility]avo Suarez DO [facility] Address [address] [place], [place] [id number] Care Team Providers Care Application Services Manager Name Role Phone Gustavo Suarez Primary Care Provider REASON FOR VISIT 2 month f/u Encounters Encounter Location Date Provider Diagnosis Gustavo Suarez DO, [address] [phone] 06/23/2024 Gustavo Suarez PLAN OF TREATMENT No Information
--- OUTSIDE RECORDS SUMMARY | 2024-06-23 13:24 | XMS_ITS | Encounter Summary ---
Author Organization [facility] Address [address] [place] [phone] Care Team Providers Care Casework Manager Name Role Phone Unavailable Primary Care Provider Unavailabl e Encounter Details Date Type Department Care Team (Late st Contact Info) Description 06/09/2024 Scanned Document INTERFACE DEFAULT [address] [place] [phone] System, Provider Not In Social History Tobacco [...] EDT Office Visit Neuromuscular Medicine at [address] [address] Richard Lewis MD [address] [place] [phone] Gaviota Wu MD [address] [place] [address] 09/22/2024 9:30 AM EDT Follow [facility] [address] [place] [address] Richard Lewis MD [address] [place] [address] documented as of this encounter Visit Diagnoses Not on filedocumented in this encounter Additional Health Concerns Assessment Noted Time PHQ-9 Depression Total Score: 0 01/27/20 8:26 AM EDT documented as of this encounter
--- OUTSIDE RECORDS SUMMARY | 2024-06-23 13:24 | XMS_ITS | Encounter Summary ---
Author Organization [facility] Address [address] [place] [address] Care Team Providers Care Slipper Maker Name Role Phone Gustavo Suarez DO Primary Care Provider [phone] Reason for Visit * Imaging (Routine) - Closed Specialty Diagnoses / Procedures Referred By Contac t Referred To Contact Cardiology Diagnoses Shortness of breath Chest pain, unspecified type Procedures Transthoracic echocardiogram (TTE) complete with PRN contrast, bubble, strain, and 3D order panel IN TTE W 2D IMAGE COMPLETE W DOPPLER ECHO & COLOR FLOW DOPPLER ECHO IN RUBEN 2D COMPLETE W/CONTRAST OR W & WO CONTRAST WITH DOPPLER Ziggy Ventura MD Phone: tel: fax: [facility] Referral ID Status Reason Start Date Expiration Date Visits Re quested Visits Authorized [id number] Closed 03/10/2024 03/10/2025 1 1 Encounter Details Date Type Department Care Team (Latest Contact Info) Description 05/27/2024 11:00 AM EST Ancillary Procedure [facility] - [address] [place] [address] Shortness of breath; Chest pain, unspecified type [...] PM EST documented as of this encounter Last Filed [...] Description 07/28/2024 8:50 AM EDT Office Visit [facility] Cardiology [facility] [address] [place] [address] Ziggy Ventura MD [address] [place] [address] [address] [place] [address] 08/02/2024 8:40 AM EDT Consult [facility] Cardiology [facility] [address] [place] [address] Richard Santamaria MD [address] [place] [address] documented as of this encounter Procedures Procedure Name Priority Date/Time Associated Diagnosis Comments TRANSTHORACIC ECHOCARDIOGRAM (TTE) COMPLETE Routine 05/27/2024 11:59 AM EST Shortness of breath Chest pain, unspecified type documented in this encounter Results * (ABNORMAL) TRANSTHORACIC ECHOCARDIOGRAM (TTE) COMPLETE (05/27/2024 11:59 AM EST) Left Atrium Minor [place] 5.3 cm CV PACS Left Atrium Major [place] 4.3 cm CV PACS LA Area Sys [...] MD CV ECHO PROCEDURES Final Resul t documented in this encounter Visit Diagnoses Diagnosis Shortness of breath Chest pain, unspecified type documented in this encounter Care Teams Slipper Maker Relationship Specialty Start Date End Date Gustavo Suarez DO [address] [place] [phone] PCP - General 11/28/09 documented as of this encounter
--- OUTSIDE RECORDS SUMMARY | 2024-06-23 13:24 | XMS_ITS | Encounter Summary ---
Author Organization [facility] Address [address] [place] [address] Care Team Providers Care Distribution System Operator Name Role Phone Unavailable Primary Care Provider Unavailabl e Reason for Visit * Consultation (Routine) - Authorized Specialty Diagnoses / Procedures Referred By Maria Isabel shahid Referred To Contact Nutrition Diagnoses Unintentional weight loss Richard Lewis MD [address] [place] [address] Phone: tel: fax: Clementina Elizabeth, RD [address] [place] [address] Phone: tel: fax: Referral ID Status Reason Start Date Expiration Date Visits Requested Visits Authorized [id number] Authorized Specialty Services Required 05/25/2024 05/25/2025 10 10 Encounter Details Date Type Department Care Team (Late st Contact Info) Description 06/11/2024 10:00 AM EST Nutrition [facility] [address] [address] Marlee Norris, ANNA MARIE [address] [place] [address] Unintentional weight loss (Primary Dx) Social History Tobacco Use Types Packs/Day Years [...] AM EDT documented as of this encounter Last Filed Vital Signs Vital Sign Reading Time Taken Comments Blood Pressure - - Pulse - - Temperature - - Respiratory Rate - - Oxygen Saturation - - Inhaled Oxygen Concentration - - Weight - - Height 160 cm (5' 3 ) 06/11/2024 1:38 PM EST per chart review Body Mass Index - - documented in this encounter Progress Notes * Marlee Norris, RD - 06/11/2024 10:00 AM EST Nutrition Assessment - [facility] Salesperson [employer]/Provider: Marlee Norris, , RDN, CDN Date of Visit: 06/11/2024 Type of Visit: Initial Referred by: Richard Lewis MD Reason(s) for Referral: 783.21 (ICD-9-CM) - R63.4 (ICD-10-CM) - Unintentional weight loss First time seen RD? No, pt spoke with the dietitian while she was hospitalized in 04/2024. The dietitian recommended eating 3 smaller meals, 3 snacks and drinking a supplement. Nutrition Goal: Patient voiced two main nutrition concerns: building up muscle mass and gaining weight in a healthy way. Patient reports having a hard time keeping her weight. Patient stated her weight was 160 lbs 1 yearand half ago. Today, she reported her weight is 115 lbs. NUTRITION RELATED DATA Past Medical History: No past medical history on file. However, per chart reviewed: GERD, bipolar affective disorder, HTN, HLD, urinary and fecal incontinence, BHANU, nonobstructive CAD. Patient statedshe was Dx with IBS-D and followed a more strict gluten free diet. She had hip replacement surgery on 02/2022. 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 Pt has an appointment with Neuro on 07/19/24. Medications: Reviewed. Includes, but not limited to: Omeprazole for GERD Gabapentin, diazepam, she tried metamucil for constipation in the past. Current Outpatient Medications: acetaminophen, TAKE 2 TABLET ORALLY EVERY 8 HOURS NEEDED FOR MILD-MODERATE PAIN baclofen, 20 mg, Oral, TID biotin, 1 tablet, Oral, Daily buPROPion, diazePAM, 5 mg, Oral, Daily docusate sodium, 100 mg, Oral, BID Eliquis, ergocalciferol, estradioL, gabapentin, 2 tablet, Oral, QHS lamoTRIgine XR, 2 tablets Orally Once a day LORazepam, methylphenidate HCl, 20 mg, Oral, BID nitroGLYCERIN, place 1 tablet under the tongue every 5 minutes if needed for chest pain for up to 3doses Sublingual Once a day omeprazole, valACYclovir, 500 mg, Oral, BID Supplement/Vitamin intake: Biotin, collage and peptides powder, takes a prescription vitamin D Nutrition Related Laboratory Findings: Noted: hyperlipidemia At home A1C test: 4.7 per pt recall Component Ref Range & Units 09/24/23 10:56 AM CRP, High Sensitivity See comment mg/L 1.3 Component Ref Range & Units 09/24/23 10:56 AM Sedimentation Rate (ESR) 0 - 20 mm/hr 5 Psychosocial History: Cultural/social practices and Social support system: . Patient has a visiting nurse and aid who helps with cooking. Food Insecurity Assessment: Patient is a meal on Wheels participant. Food Allergies/Intolerances: wheat, yeast. Lactose intolerance, she tolerates Activia yogurt. NUTRITION ASSESSMENT Nutrition Focused Physical Exam: Global assessment: Appears thin Loss of subcutaneous fat or muscle wasting: noted some mild muscle wasting in temporal region. Clinical Signs and Symptoms: Gastrointestinal: Denies N/V/C/D today. Pt has a neurostimulator for incontinence management. Bowel movements: 1 a day Appetite: very good Difficulty chewing/swallowing: Hx of difficulty swallowing. MBS 06/2023 showed mild dysphagia but not aspiration. Reports weak swallowing muscles, issue more noticeable while drinking. Pt had an episode of food stuck in her throat (peas and carrots). She reports taking her pills with apple sauce or puddings. Patient stated she does not avoid certain food textures just bread because of gluten. Depression/Anxiety/Stress: hx of bipolar - managed with medication and therapy. Patient sees a mental health professional every weekly. Patient reports her grandson passed recently. Anthropometrics: BMI: Estimated body mass index is 20.9 kg/m?? as calculated from the following: Height as of this encounter: 5' 3 (1.6 m). Weight as of 05/25/24: 53.5 kg. Per chart review Ht: 5' 3 (160 cm) Healthy WT (BMI 19-25): 124 lbs/56 kg Unintentional weight loss: per pt report she lost ~ 45 lbs 18 months. Weight History: Self-reported weight (06/11/24): 115 lbs / 52.2 kg Wt [place] from Last 6 Encounters: 05/25/24 53.5 kg 01/27/24 55.6 kg 09/24/23 58.3 kg Past wt Hx: 08/29/2021: 61.6 kg / 135 lbs Physical Activity: Reports stationary bike exercises every day after waking up. She has an upcomingphysical therapy appointment for muscle strengthening. Patient stated she did physical therapy for ~ 6 years before. Functional Impairment: yes, muscle spasms, tightness and cramping. Sleep quality: Poor, hx of insomnia managed with medication. She wakes up feeling stiff and hurting. Assessment of Current Nutrition Intake: Patient reports she love sweets. She eats salmon and does not eat fried foods such as mozzarella sticks or breaded chicken. Recently, pt has been using more avocado oil. Patient eats fruit when available. She reports she was told to avoid all green leafy green vegetables due to diverticulosis. She enjoys making some foods at home such as creamer and spaghetti sauce. 24-Hour/Typical Day Diet Recall First Meal Second Meal Third Meal Snacks 16 oz coffee with homemade almond milk creamer (condense milk, sugar, almond milk) with 1 pack trivia 8 am: Activia with pills 9-10 am: breakfast Cereal with almond milk, maple syrup and dry cranberries 11 am- 12 pm 2 eggs with cheese or egg sandwich butter, eggs, rye bread or white bread 1/2 of protein shake premier 2 pm: peanut butter and jelly Or meals and wheels Yesterday she had clam chowder Drinks water with electrolytes 4 pm - protein bar Or 1/2 of protein shake (premier) Chicken Quesadilla (cheese with nalini salsa corn tortillas) ---- Or pork chop or seafood Ice cream - made with coconut milk - Lactaid ice-cream Water: report drink mostly water during the day. Recent changes: patient reports following a gluten free diet. However, she consumes bread and breakfast cereal according to her verbal report. She confirmed aiming for less gluten containing food products, ex: gluten free chicken nuggets. Pt uses an donnie to identify gluten in the foods she is about to buy. Current diet is low in whole grains, non-starchy vegetables, fruits and healthy fats. Noted, her diet includes adequate lean proteins with meals. Patient can benefit from including high protein foodsas snacks. Current diet is likely high in added sugars per pt verbal report likes sweets Suspect large portions at times: unclear Understands hunger and satiety cues: yes, reports feeling normal hunger cues Nutrition Diagnosis Unintended weight loss related to low perceived awareness about recent nutritional changes that could affect appetite or food intake as evidenced by pt reporting she lost ~ 45 lbs in 18 months, pt reported losing a family member, following a gluten free diet to improve her health. Nutrition Prescription: Calories: 1359 kcal (MSJ AF 1.2 of Current Weight) + 500 kcal to support weight recovery and increased demands Protein: 62 - 78 gm (1.2 - 1.5 gm/Kg per day using current weight 52.2 kg) Other Nutrients: RDIs for micronutrients for gender/age Protein supplements: Suggested a calorie dense supplement with at least 350 domitila and 16 gm of protein BID. Pr provided verbal permission to receive samples of nutritional supplements. Pt only likes chocolate supplements. Will send Orgain and katefarms supplements for patient to assess tolerance. She does not like Ensure. NUTRITION INTERVENTION Patient was encouraged the inclusion of high-calorie/energy foods with multiple feedings during theday. Nutrition Intervention and Education: Reviewed relationship of nutrition to weight recovery. In order to prevent further weight loss, patient was encouraged to consume more energy dense foods. Recommendations for dietary modifications and supplements to support lean body mass and weight recovery were provided. Counseling session focused on skill development for lifestyle change. Eat at least five small meals and snacks each day Drink nutritional supplements and healthy beverage that add calories Eat high-calorie, high-protein, high fat foods. S.M.A.R.T. patient-centered Individual Nutritional Goals by next visit: 1. Aim for 3 main meals a day and 3 small snacks, consider: - protein with every meal and snack, add an additional serving of calorie dense foods: peanut butter, olive oil while cooking 2. Avoid skipping a meal or snack 3. Aim for 1 oral supplement with more calories every day: at least 350 kcal Readiness for Change and Understanding: Displays a good understanding of the nutrition concepts reviewed and related to lifestyle and behavioral changes. Motivation level: motivated Barriers to Change: Patient has eliminated certain foods such as most breads with gluten , fruits cups with added sugar, fried foods, breaded meats, green vegetables Readiness/likelihood for change: preparation Recommended modified diet and meal planning strategies: X - strategies discussed Optimizing Nutrient Intake from foods or supplements: - Suggested switching her protein supplement, Premier, for another supplement with more calories. Recommended the Orgain brand since pt does not like the Ensure supplement. SMALL AND FREQUENT MEAL PLANNING: - Patient reports it is hard to eat several meals a day, However she makes the best efforts to eat frequently during the day. - Encouraged patient to include her favorite foods daily with meals and snacks. ENERGY DENSE HEALTHY SNACKS: - Encouraged patient to add energy dense ingredients with meals, such olive oil, additional servingof peanut butter. Encouraged incorporating more fruit with snacks HIGH CALORIE, HIGH PROTEIN FOODS AND MEALS: - Provided a handout that includes foods high in protein. Encouraged pt to add a serving of proteinwith each meal and snack. GERD NUTRITION THERAPY: n/a PLANT FORWARD/MEDITERRANEAN/ANTI-INFLAMMATORY NUTRITION THERAPY: - Educated patient about a healthy nutrition eating patter includes: the daily intake of fruits, vegetables, lean proteins, complex carbs/ high fiber grains and healthy fats. Patient wants to continue a gluten reduced meal pattern, encouraged her adding gluten free whole foods/grains for added fiber and nutrients. Other Printed Education Materials Utilized/Provided: - High-Calorie, High-Protein Nutrition Therapy (2020) - Gluten Free Nutrition Therapy (list of foods that are naturally gluten free) - Foods high in protein - Tips for adding calories and protein - RD business cards for additional questions or concerns Behavioral/Counseling strategies: Affirming healthy behaviors and foods consumed, validating struggles, problem solving for symptoms and management of barriers to good nutrition, shared decision making and goals setting MONITORING AND FOLLOW UP Food/nutrition intake tracking: pt self reported intake vs other food intake tracking. Anthropometric measurement: body weight changes Biochemical data and other testing: routine health screening including new labs GI function/complications, malabsorption issues Nutrition-focused physical related: monitor for s/s deficiency or changes in health condition Collaboration and referral of nutrition care: Allergy/Immunology team Next visit planned: August 28, 2024 at 10 am; in person. Pt lives in [place] Visit Length: (10 am to 11:30 am) 90 minutes Electronically Signed by Electronically signed by Marlee Norris MS, RDN June 11, 2024 documented in this encounter Plan of Treatment Upcoming Encounters Date Type Department Care Team (Late st Contact Info) Description 07/19/2024 1:00 PM EDT Office Visit Neuromuscular Medicine at [address] [facility] [address] [facility] [place] [address] Richard Lewis MD [address] [place], [place] [address] [address] Gaviota Wu MD [address] [place] [id number] 09/22/2024 9:30 AM EDT [facility] Up [facility] [address] [facility] [address]nd [place], [place] [id number] Richard Lewis MD [address] [facility] [place] [address] Scheduled Referrals Name Type Priority Associated Diagnoses Order Schedule Ambulatory referral to Nutrition Services Outpatient Referral Routine Unintentional weight loss Ordered: 05/25/2024 documented as of this encounter Visit Diagnoses Diagnosis Unintentional weight loss- Primary Loss of weight documented in this encounter Additional Health Concerns Assessment Noted Time PHQ-9 Depression Total Score: 0 01/27/20 24 8:26 AM EDT documented as of this encounter
--- OUTSIDE RECORDS SUMMARY | 2024-06-23 13:24 | XMS_ITS | Patient Health Record ---
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 confirmed Problem Acquired hallux valgus (37048067) Hallux valgus (acquired), right foot (M20.11) Active confirmed Problem Acquired hammer toe of right foot (4122800867529423) Other hammer toe(s) (acquired), right foot (M20.41) Active confirmed Problem 31179410 MS (multiple sclerosis) (G35) Active confirmed Vital Signs Height 5 ft 4 in in 12/22/2023 Weight 131 lbs 12/22/2023 BMI 22.48 kg/m2 12/22/2023 Encounters Encounter Location Date Provider Diagnosis [address] [address] 10/22/2023 Magen Acevedo Pain in right foot M79.671 ; Sprain of anterior talofibular ligament of right ankle, sequela S93.491S ; Contusion of right foot, sequela S90.31XS ; Stress fracture, right foot, sequela M84.374S ; Metatarsalgia, right foot M77.41 and Peripheral neuropathic pain M79.[address] [address] 11/24/2023 Magen Acevedo Pain in right foot M79.671 ; Sprain of anterior talofibular ligament of right ankle, sequela S93.491S ; Contusion of right foot, sequela S90.31XS ; Stress fracture, right foot, sequela M84.374S ; Metatarsalgia, right foot M77.41 and Peripheral neuropathic pain M79.[address] [address] 12/22/2023 Magen Acevedo Pain in right foot M79.671 ; Sprain of anterior talofibular ligament of right ankle, sequela S93.491S ; Metatarsalgia, right foot M77.41 and Peripheral neuropathic pain M79.[address] [address] 10/20/[address] [address] 10/22/[address] [address] 10/27/[address] [address] 11/04/[address] [address] 11/27/20[address] [place] [address] 12/09/2023 [facility] [place] [address] [place] [address] 12/11/2023 [facility] Assessments Encounter Date Diagnosis (ICD Code) [...] X ray : Foot, right 3V 10/22/2023 83147- Debride <25 sq cm 05/20/2017 [id number] OF HEMATOMA/FLUID 019 X ray : Ankle, right 3V 10/22/2023 Insurance Providers Payer Name Payer Address Payer Phone Subscriber Number Group Number Insured Name Patient Relationship to Insured Coverage Start Date Coverage End Date [employer] [address] [place] [address] [id number] Ying Denton Self - patient is the insured [employer] [address] [place] [address] [id number] Ying Denton Self - patient is the [...] [place]-Reaction to hypertension, overnight, from [facility] 08/27/2017 [facility] - chest pain 019
--- OUTSIDE RECORDS SUMMARY | 2024-06-23 13:24 | XMS_ITS | Continuity of Care Document ---
Author Organization [facility] [address] [facility] [address] [place] [address] Phone [phone] Care Team Providers Care Nuclear Physicist Name Role Phone Gustavo Suarez M.D. Care Team Information Recei yadira [phone] Clarence Leiva MD Care Team Information R eceiver [phone] Problems Active Problems Provider Date Multinodular goiter Jono Holm M.D. Onset: 12/12/2022 History of transient ischaemic attack Jono ornelas M.D. Onset: 12/12/2022 Bipolar disorder Jono Holm M.D. Onset: Osteoarthritis Jono Holm M.D. Onset: 02/2023 Thyroid nodule Jono Holm M.D. Onset: 02/2023 Depressive disorder Jono Holm M.D. Onset: 12/12/2022 Atrial fibrillation Jono Holm M.D. Onset: 12/12/2022 Multiple sclerosis Jono Holm M.D. Onset: 12/12/2022 Cerebrovascular accident Jono Holm M.D. O nset: 12/12/2022 Social History Type Date Description Comments Sex [...] Apply 1 Patch Once A Week Unknown [id number] Tablets Take 1 Tablet By Mouth Twice Daily as Needed For Muscle Spasm Krystina Mendez NP [id number] Tablets Take half hs Unknow n Vitamin D (Ergocalciferol)1.25mg (58300 Ut) Capsules Take 1 Capsule By Mouth every other week Unknown Oxclunvlwq37km Capsules DR Take 1 Capsule By Mouth Every Day 30 Minutes Before Breakfast Gustavo Suarez M.D. Idingihaef717kq Tablets 300mg am, 300mg 2pm, 1200mg 8pm Unknown Qxuyfja6kl Tablets Take 1 Tablet By Mouth Twice Daily Linda Astudillo MD Lamotrigine HS833no Tablets ER 24HR Take 2 Tablets By Mouth Every Day Unknown Methylphenidate HJM89ss Tablets Take 1 Tablet By Mouth Three Times Daily prn Unknown Bupropion FEX61cv Tablets Take 1 Tablet By Mouth Twice Daily Unknown Valacyclovir VXT398gf Tablets Unknown Tizanidine HCL2mg Tablets Unknown Vital [...] ng/dL 0.82-1.7 7 Laboratory test finding 12/12/2022 [facility] TSH With Reflex To FT4 0.33 uIU/mL Low (0.4-4.2 ) Anti Thyroid Peroxidase AB <3.0 IU/mL (<5.6) 1 25Oh Vitamin D 50.0 NG/ML (20-50) Free T4 0.90 ng/dL (0.70-1. 80) 1 Antibody measurement represents one parameter in a multicriteria diagnostic process. Correlate results with clinical presentation. This test was performed on the [employer] immunoassay system. Medical Devices Description No Information [...]
--- OUTSIDE RECORDS SUMMARY | 2024-06-23 13:25 | XMS_ITS | Encounter Summary ---
Author Organization [facility] Address [address] [place] [address] Care Team Providers Care Gas Operator Name Role Phone Unavailable Primary Care Provider Unavailabl e Reason for Referral * Physical Medicine (Routine) - New Request Specialty Diagnoses / Procedures Referred By Maria Isabel t Referred To Contact Physical Therapy Diagnoses Weakness Muscle cramping Richard Lewis MD [address] [place] [address] Phone: tel: fax: Referral ID Status Reason Start Date Expiration Date Visits Requested Visits Authorized [id number] New Request Specialty Services Required 05/25/2024 05/25/2025 1 1 * Consultation (Routine) - Authorized Specialty Diagnoses / Procedures Referred By Maria Isabel t Referred To Contact Nutrition Diagnoses Unintentional weight loss Richard Lewis MD [address] [place] [address] Phone: tel: fax: Clementina Elizabeth, RD [address] [address] Phone: tel: fax: Referral ID Status Reason Start Date Expiration Date Visits Requested Visits Authorized [id number] Authorized Specialty Services Required 05/25/2024 05/25/2025 10 10 Reason for Visit * Reason Comments Follow-up Encounter Details Date Type Department Care Team (Late st Contact Info) Description 05/25/2024 10:30 AM EST Follow Up [facility] [address] [place] [phone] Richard Lewis MD [address] [place] [address] Muscle cramping (Primary Dx); Unintentional weight loss; Weakness Social History Tobacco Use Types Packs/Day Years [...] EST Temperature 36.7 ??C (98 ??F) 05/25/2024 10:15 AM EST Respiratory Rate 20 05/25/2024 10:15 AM EST Oxygen Saturation 100% 05/25/2024 10:15 AM EST Inhaled Oxygen Concentration - - Weight 53.5 kg (118 lb) 05/25/2024 10:15 AM EST Height - - Body Mass Index - - documented in this encounter Progress Notes * Richard Lewis MD - 05/25/2024 10:30 AM EST [facility] I had the pleasure of evaluating Ying Denton for an outpatient neurologic consultation today, 05/21/2024. Ying Denton is a 64 y.o. originally referred to our center by Dr. Rosa Rust for second opinion on ?MS. Interval History: -Since beginning of February, she intermittently experiences difficulty breathing and inability to catch her breath due to abdominal muscle spasms which she describes as tightness and cramping. She feels as if she experiences spasms in her diaphragm. Episodes occur randomly with no known triggers. She was seen by pulmonology and undergone a cardiac workup with cardiac catheterization which was unremarkable. Still unclear if episodes are primarily cardiac in nature or muscle spasm related. -Persistent numbness and tingling extending up to her eyes with severe headaches and neck spasms. -Persistent muscle spasms in her left anterior lower extremity, now on the right anterior lower extremity. When trying to sleep at night, she experiences curling up of her 1st toe on the R foot. Thiswas previously relieved with massaging the area; now ineffective. She attended OT and PT for 2 years but stopped because diagnosis was unknown -Ongoing muscle cramping in her back since 2012 which has been worsening since past 3 years. She had started OT and massaging was effective. -She has taken Tizanidine, baclofen and applied hot packs which were ineffective. She experiences an upset stomach and headache when taking Tizanidine. -Over the past few months, she spends more days unable to do things due to significant fatigue. Shetries to rest and finds it difficult to get up to complete tasks thereafter. -She feels she has lost a lot of her muscle overall. She endorses unintentional weight loss with difficulty maintaining weight 115-120 lbs. Now, she consumes protein shakes and protein snacks. -She notes persistent sleep disturbance due to pain. She takes Ativan 2mg nightly for insomnia but recently notes awakening despite taking the medication. She is unable to sleep on her left side which is consistent from the past. -She had a mechanical fall 2 weeks prior, unsure if she injured her hip. 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 -Sacral nerve stimulator is intermittently effective to aid with urinary retention. -She admits to being easily startled by loud sounds or sudden movements. -Denies any recurrent infections. -Denies any new or worsening diplopia, bladder changes, balance changes, difficulty with ambulation, or other neurologic symptoms. -She now has an aide, Lisbeth from [facility], to help with house keeping and showering. -She is scheduled to follow up with Dr. Wu in 07/19/24. -She developed an allergic skin reaction presenting with blisters to the adhesive on stickers. She is planning to follow with a local buffet manager for further evaluation. -She is accompanied by her daughter in clinic who is beginning to have similar symptoms of muscle spasms and muscle weakness Prior History: She has a complex history of neurologic symptoms and has seen numerous neurologists in the past. She had 1 seizure-like event as a child while in religious where she briefly spaced out. She was on ASMs for several years but never had any other events. She initially developed muscle cramps in her suprapubic region in 2009. This has progressed to several different areas including: suprapubic region, abd, pelvis, lower extremities, upper extremities,and now her back. They occur daily. She [...] being worked up for MS at the [facility] and was scheduled to start on Ocrevus in 10/2021. She had hip replacement surgery in Feb 2022 at [facility] and four days s/p surgery, she experienced full body paresis from her neck to her feet. 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 She needed to go to rehab after this event as she required a wheelchair. She occasionally experiences blurry vision but follows regularly with her weft straightener. Review of Systems: A complete 14-point review of systems was completed by the patient and entered separately. Pertinent positives were reviewed by me. The patient has the following additional complaints: Allergies: Ms. Denton is allergic to codeine, penicillins, hydrocodone-acetaminophen, lactose, mold, oxycodone,and oxycodone-acetaminophen. PMH: Ms. Denton has no past medical history on file. Surgical history: Ms. Denton has no past surgical history on file. Social history: She reports that she has never smoked. She does not have any smokeless tobacco history on file. No history on file for alcohol use and drug use. Family History: Mother and cousin with . She says her mother had muscle spasms and gradual gait deterioration Ms. Denton's family history is not on file. Current medications: Current Outpatient Medications: acetaminophen, TAKE 2 TABLET ORALLY EVERY 8 HOURS NEEDED FOR MILD-MODERATE PAIN baclofen, 20 mg, Oral, TID biotin, 1 tablet, Oral, Daily buPROPion, docusate sodium, 100 mg, Oral, BID Eliquis, ergocalciferol, estradioL, gabapentin, 2 tablet, Oral, QHS lamoTRIgine XR, 2 tablets Orally Once a day LORazepam, methylphenidate HCl, 20 mg, Oral, BID nitroGLYCERIN, place 1 tablet under the tongue every 5 minutes if needed for chest pain for up to 3doses Sublingual Once a day omeprazole, tiZANidine, 2 mg, Oral, BID PRN valACYclovir, 500 mg, Oral, BID Physical examination There were no vitals filed for this visit. General: Ying Denton is pleasant and cooperative with the exam. No rashes or pedal edema. Neurologic Exam Mental Status Oriented to person, place, and time. Attention: normal. Level of consciousness: alert Normal comprehension. Cranial Nerves CN III, IV, Pupils are equal, round, and reactive to light. Extraocular motions are normal. Right pupil: Consensual response: intact. Left pupil: Consensual response: intact. CN VII Facial expression full, symmetric. Motor Exam Overall muscle tone: normal Strength Strength 5/5 except as noted. Normal fine finger movements and toe tapping bilaterally Sensory Exam Light touch normal. Vibration normal. Decreased temp sensation below mid calf bilaterally Gait, Coordination, and Reflexes Gait Gait: normal Coordination Finger to nose coordination: normal Reflexes Right brachioradialis: 1+ Left brachioradialis: 1+ Right biceps: 1+ Left biceps: 1+ Right patellar: 1+ Left patellar: 1+ Right achilles: 0 Left achilles: 0 Right plantar: normal Left plantar: normal Right Ferrell: absent Left Ferrell: absent Right ankle clonus: absent Left ankle clonus: absent Imaging: MRI brain 03/22/24: I personally reviewed the images - Non-specific subcortical white matter hyperintensities. No clear periventricular lesions. Only one lesion has associated central vein sign MRI C spine 03/22/24: I personally reviewed the images - Improvement in cervical stenosis s/p surgery MRI C spine 02/08/22: I personally reviewed the images-Severe multi-level stenosis. 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 2) A mild to moderate sensory median neuropathy at the L wrist. There is no electrodiagnostic evidence of a more diffuse polyneuropathy in the nerves tested. Thereis no electrodiagnostic evidence of a myopathy or radiculopathy in the tested extremities. Data: 04/05/24: CBC: WBC 3.8 (low) CMP, Mg, proBNP: WNL CCP Ab, Sensory motor neuropathy, CK, Mg, MMA, CRP, ESR, Stiff person syndrome Ab panel, RF 09/24/23: Normal RF and SURINDER positive Vit E, Cu, Fe, TSH, B12, A1c, SPEP, SSA/SSB, DRAFTER CONSTRUCTION Ab ,Palomo Ab, dsDNA Abs: WNL CSF 02/2022: Normal WBC and protein, negative oligoclonal banding, normal IgG index Assessment: Ying Denton is a 64 y.o. year old referred to our center for chronic neurologic symptoms. Basedon her symptoms and reported imaging and CSF findings, I have low suspicion for MS. Her neurologic symptoms are atypical -ddx includes stiff person spectrum (would be seronegative but she has never had CSF specific antibody testing), inherited condition (given family history), or paraneoplastic syndrome (given weight loss). CT CAP did not show evidence of malignancy. Her symptoms may be congruent with stiff person syndrome despite testing negative for the antibodies in the past. To help determine if she meets criteria, will start diazepam. Will also await neuromuscular clinic opinion in light of her negative workup so far. Plan: - Follow up with Dr. Wu as scheduled for 07/27 for further evaluation. - Continue baclofen 20mg TID. - Stop tizanidine 2mg - Start Valium 5mg OD during the day. Counseled on possible side effects including daytime grogginess and drowsiness given use of two muscle relaxers. - Referral placed to nursing tech for weight loss management. - Referral to physical therapy for muscle strengthening - If positive response to diazepam and no alternative diagnosis elucidated at neuromuscular clinic,will consider initiating IVIG for possible stiff person syndrome. Return to clinic in 4 months Scribed for Richard Lewis MD by Wendie Carson director medical science May 21, 2024 The documentation recorded by the scribe accurately reflects the services I personally performed and the decisions made by me. I reviewed and confirmed all material entered and/or pre-charted by the scribe. Richard Lewis MD Trap Setter of Clinical Neurology [employer] 45 minutes were personally spent with Ying Denton and reviewing/documenting medical records by me. documented in this encounter Plan of Treatment Upcoming Encounters Date Type Department Care Team (Late st Contact Info) Description 07/19/2024 1:00 PM EDT Office Visit Neuromuscular Medicine at [address] [facility] [address] [facility] [place] [address] Richard Lewis MD [address] [facility] [place] [phone] Gaviota Wu MD [address] [facility] [place] [phone] 09/22/2024 9:30 AM EDT Follow Up [facility] [address] [place] [address] Richard Lewis MD [address] [place] [phone] Scheduled Referrals Name Type Priority Associated Diagnoses Order Schedule Ambulatory referral to Nutrition Services Outpatient Referral Routine Unintentional weight loss Ordered: 05/25/2024 Ambulatory referral to Rehab Services Outpatient Referral Routine Weakness Muscle cramping Ordered: 05/25/2024 documented as of this encounter Visit Diagnoses Diagnosis Muscle cramping- Primary Unintentional weight loss Loss of weight Weakness Other malaise and fatigue documented in this encounter Additional Health Concerns Assessment Noted Time PHQ-9 Depression Total Score: 0 01/27/20 8:26 AM EDT documented as of this encounter
--- OUTSIDE RECORDS SUMMARY | 2024-06-23 13:25 | XMS_ITS | Patient Health Record ---
Author Organization [facility] Address [address] [place] [address] Care Team Providers Care Brusher Warp Name Role Phone LAYA MUJICA Primary Care Provider Gustavo Amador Unavailable [phone] ALLERGIES Allergen (clinical drug ingredient) Drug/Non Drug [...] screening (Z12.11) Active confirmed Colon cancer screening (570870503) Problem Encounter for screening for malignant neoplasm of colon (Z12.11) Active confirmed 746378167 Problem History of adenomatous polyp of colon (Z86.010) Active confirmed 342239899 Problem Constipation (K59.00) Active confirmed Constipation (34495600) Problem IBS (irritable bowel syndrome) (K58.9) Active confirmed Irritable bowel syndrome (69059196) Problem Long-term use of aspirin therapy (Z79.82) Active confirmed 413094122 Problem Abdominal pain, left lower quadrant (R10.32) Active confirmed Left lower quadrant pain (427719823) Problem Abdominal pain, generalized (R10.84) Active confirmed 293007045 Problem Incontinence of feces, unspecified fecal incontinence type (R15.9) Active confirmed 56112986 Problem Personal history of adenomatous and serrated colon polyps (Z86.0101) Active confirmed VITAL SIGNS Blood pressure diastolic 00 mm Hg 05/20/2024 Height 62.5 in 05/20/2024 Blood pressure systolic 00 mm Hg 05/20/2024 Weight 121 lbs 05/20/2024 BMI 21.78 kg/m2 05/20/2024 Encounters Encounter Location Date Provider Diagnosis [facility] [address] [place] [address] 05/20/2024 Gustavo Sofia Colon cancer screeni ng [...] Provider Name:Gustavo Sofia , 01/18/2025 09:30:00 AM, [address] [place] [address], [address], [place], [address], Insurance Providers Payer Name Payer Address Payer Phone Subscriber Number Group Number Insured Name Patient Relationship to Insured Coverage Start Date Coverage End Date [employer] [address] [place], [place] [id number] DANIELLE NUGENT Self - patient is the insured [employer] PPO [address] [place] [phone] [id number] DANIELLE NUGENT Self - patient is the insured MEDICAL (GENERAL) HISTORY Medical History History ICD Code Propranolol for anxiety Bipolar disorder Fibrocystic breast disease Eczema Herpes simplex, recurrent Sleep disorder-insomnia Denies NV,DM,CVA,Lung disease,renal dise ase EGD in 1997 by [facility]-mild gastritis-neg H.p ylori 2000 EGD and Colonoscopy at [facility] by Dr. 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 [place] Neuropathy Neg. colonoscopy in 03/2019 EGD 07/02/2019 at [facility]--neg. except minimal gastritis--bx neg. for H.pylori, normal duodenal bx Afib--sees Dr. Fry at [facility] ardiology Being evaluated at [facility] by a Neuroimmunologist for possible Stiff [...]
--- OUTSIDE RECORDS SUMMARY | 2024-06-23 13:25 | XMS_ITS ---
Author Organization [facility] Address [address] [place] [address] Care Team Providers Care Court Worker Name Role Phone Gustavo Suarez MD Primary Care Provider Unavail Magen Castro Unavailable [phone] Allergies Allergen (clinical drug ingredient) Drug/Non Drug [...] 12/22/2023 Encounters Encounter Location Date Provider Diagnosis [facility] [address] [place] [address] 12/22/2023 Magen Acevedo Pain in right foot [...] * Joselin DENTONeDOB:[birth year] (64 yo F)Acc No.[id number]:12/22/2023 Progress Notes Patient:?Ying DENTON Provider:?Magen Acevedo DPM :1960???Age:63 Y???Sex:Female D ate:12/22/2023 Address:[address] [place], [place] [phone] Pcp:Gustavo Suarez MD Subjective: * Chief Complaints: [...] Provider:?Magen Acevedo DPM Date:? 024 Generated for Sajan quinteros/Sierra/eTransmitting on:?06/23/2024 01:25 PM EST History and Physical Notes * [...]
--- OUTSIDE RECORDS SUMMARY | 2024-06-23 13:25 | XMS_ITS | Clinical Summary ---
Author Organization [facility] Address [address] [place] [address] Care Team Providers Care Key Bed Installer Name Role Phone Gustavo Suarez Primary Care [...] DTaP,Tdap,and Td Vaccines (1 - Tdap) 01/09/1982 Pneumococcal Vaccine: 50+ Years (1 of 1 [...] Vaccine: Pediatric (0-5 Years) and At-Risk Patients (6-50 Years) Aged Out No longer eligible based on patient's age to complete this topic Insurance HNE [employer]ETNA [facility] * Guarantor: DANIELLE NUGENT Account Type Relation to Patient Date of Phone Billing Address Personal/Family 1960 Care Teams Key Bed Installer Relationship Specialty Start Date End Date Gustavo Suarez [address] [place] [address] [place] [address] PCP - General Internal Medicine 11/13/22
--- OUTSIDE RECORDS SUMMARY | 2024-06-23 13:26 | XMS_ITS ---
Author Organization Gustavo Suarez DO, FACP Address [address] [place], [place] [address] Care Team Providers Care Furniture Restorer Name Role Phone DanielaGustavo Primary Care Provider [phone] ALLERGIES Allergen (clinical drug ingredient) Drug/Non Drug [...] Once a week Active Ergocalciferol 1.25 MG (60664 UT) 1 capsule Orally Once a week [...] Location Date Provider Diagnosis Gustavo Suarez DO, [address] [id number] 03/24/2024 Gustavo Suarez Coronary artery spas m [...] General Examination GENERAL APPEARANCE: in no ac carolyn distress, well developed, well nourished HEAD: normocephalic, atrau matic HEART: no murmurs, regular rate and rhythm, S1, S2 normal LUNGS: clear to auscultatio n bilaterally ABDOMEN: normal, bowel sounds present, soft, nontender, nondistended SKIN: warm and dry EXTREMITIES: no edema PSYCH: alert, oriented, cog nitive function intact
--- OUTSIDE RECORDS SUMMARY | 2024-06-23 13:26 | XMS_ITS | Patient Health Record ---
Author Organization [facility] Address [address] [facility] [address] [place] [address] Care Team Providers Care Hobber Name Role Phone Matt Guevara Primary Care Provider LEBRON Cordon Unavailable [phone] Reason For Referral No Information Plan Of Treatment No Information Insurance Providers Payer Name Payer Address Payer Phone Subscriber Number Group Number Insured Name Patient Relationship to Insured Coverage Start Date Coverage End Date AETNA [address] [place], [place] [id number] Ying Denton Self - patient is the insured [facility] [address] [place] [id number] Ying Denton Self - patient is the insured
--- OUTSIDE RECORDS SUMMARY | 2024-06-23 13:26 | XMS_ITS | Encounter Summary ---
Author Organization [facility] Address [address] [place] [address] Care Team Providers Care Alarm Installation Technician Name Role Phone Gustavo Suarez DO Primary Care Provider [phone] Reason for Visit * Reason Onset Date Comments Allergic Reaction 05/07/2024 Encounter Details Date Type Department Care Team (Late st Contact Info) Description 05/07/2024 Telephone [facility] Cardiology [facility] [address] [place] [phone] Ziggy Ventura MD [address] [place] [address] [address] [place] [address] Allergic Reaction Social History Tobacco Use Types [...] Description 07/28/2024 8:50 AM EDT Office Visit [facility] Cardiology [facility] Dr Caraballo [facility] Center [address] [place] [address] Ziggy Ventura MD [address] [place] [address] Dr [address] [place] [address] 08/02/2024 8:40 AM EDT Consult [facility] [address] [facility] [address] [place] [address] Richard Santamaria MD [address] [facility] [address] [place] [address] documented as of this encounter Visit Diagnoses Not on filedocumented in this encounter Care Teams Alarm Installation Technician Relationship Specialty Start Date End Date Gustavo Suarez DO [address] [place] [phone] PCP - General 11/28/09 documented as of this encounter
[2024-06-23 13:28] VITALS: BP 118/66; PULSE 84; TEMP 36.6; O2SAT 98; BMI 22.5
== END 2024-06-23 14:09 | disposition home or self-care (01) ==
LOC: HO.HMCSH 13:08
PROVIDERS: PCP Internal Medicine; Visit Provider Physician Assistant Medical
DX: F41.9 Anxiety disorder, unspecified (principal); F31.10 Bipolar disorder, current episode manic without psychotic features, unspecified; G47.00 Insomnia, unspecified; K21.9 Gastro-esophageal reflux disease without esophagitis; R25.1 Tremor, unspecified; G47.33 Obstructive sleep apnea (adult) (pediatric); D64.9 Anemia, unspecified; G25.81 Restless legs syndrome; M62.838 Other muscle spasm; R51.9 Headache, unspecified; G89.29 Other chronic pain; I20.1 Angina pectoris with documented spasm; Q24.5 Malformation of coronary vessels; K57.90 Diverticulosis of intestine, part unspecified, without perforation or abscess without bleeding; D36.9 Benign neoplasm, unspecified site; L30.9 Dermatitis, unspecified; N60.19 Diffuse cystic mastopathy of unspecified breast; B00.9 Herpesviral infection, unspecified; I48.91 Unspecified atrial fibrillation; R27.0 Ataxia, unspecified

== ENCOUNTER → 2024-06-23 13:08 | Outpatient (BNVA) | payer MEDICARE, OTHER, SELFPAY | PROVIDERS: PCP Internal Medicine; Visit Provider Physician Assistant Medical | DX: F41.9 Anxiety disorder, unspecified (principal); F31.10 Bipolar disorder, current episode manic without psychotic features, unspecified; G47.00 Insomnia, unspecified; K21.9 Gastro-esophageal reflux disease without esophagitis; G47.33 Obstructive sleep apnea (adult) (pediatric); D64.9 Anemia, unspecified; R51.9 Headache, unspecified; G89.29 Other chronic pain; I20.1 Angina pectoris with documented spasm; Q24.5 Malformation of coronary vessels; K57.90 Diverticulosis of intestine, part unspecified, without perforation or abscess without bleeding; D36.9 Benign neoplasm, unspecified site; L30.9 Dermatitis, unspecified; N60.19 Diffuse cystic mastopathy of unspecified breast; B00.9 Herpesviral infection, unspecified; I48.91 Unspecified atrial fibrillation; R27.0 Ataxia, unspecified; G45.9 Transient cerebral ischemic attack, unspecified; L65.9 Nonscarring hair loss, unspecified; G62.9 Polyneuropathy, unspecified; G25.82 Stiff-man syndrome | CPT/HCPCS: 99212 ==

== ENCOUNTER 2024-07-26 09:00 | Outpatient (REF) | payer OTHER, MEDICARE, SELFPAY ==
[2024-07-26 10:21] LABS: MANUAL DIFF FLAG NO
[2024-07-26 10:29] LABS: Basophils Percent Auto 0.4 % (0-2); Eosinophils Absolute Auto 0.1 X10*3/uL (0.0-0.4); Eosinophils Percent Auto 1.7 % (0-4); Hematocrit 39.8 % (37.0-47.0); Hemoglobin 12.9 g/dl (12.0-16.0); Imm Gran Abs Auto 0.01 X10*3/uL (0.00-0.03); Imm Gran Pct Auto 0.2 % (0.0-0.4); Lymphocytes Absolute Auto 1.3 X10*3/uL (1.2-4.9); Lymphocytes Percent Auto 27.9 % (20-40); Mean Corpuscular HGB Conc 32.4 g/dl (31.0-35.0); Mean Corpuscular Hemoglobin 31.5 pg (27.0-33.0); Mean Corpuscular Volume 97.1 fL (80.0-98.0); Mean Platelet Volume 10.1 fL (9.4-12.3); Monocytes Absolute Auto 0.4 X10*3/uL (0.1-1.2); Monocytes Percent Auto 9.4 % (2-11); Neutrophils Absolute Auto 2.8 x10*3/uL (2.0-8.3); Neutrophils Percent Auto 60.4 % (45-73); Platelet Count 291 X10*3/uL (160-400); Red Cell Distribution Width 13.2 % (11.0-16.0); White Blood Count 4.7 X10*3/uL (4.8-10.8)
[2024-07-26 10:40] LABS: Estimated Average Glucose 100 mg/dL; Hemoglobin A1c % 5.1 % (<6.0); Total Hemoglobin (HGBA1C) 3460.0941 umol/L
[2024-07-26 11:29] LABS: Alanine Aminotransferase 17 U/L (0-31); Albumin Level 4.2 g/dL (3.5-5.0); Alkaline Phosphatase 63 U/L (39-117); Anion Gap 9 (12-20); Aspartate Amino Transferase 28 U/L (5-31); Bilirubin Direct 0.2 mg/dL (0.0-0.5); Bilirubin Total 0.8 mg/dL (0.0-1.0); Blood Urea Nitrogen 11 mg/dL (9-16); C Reactive Protein 0.13 mg/dL (< or = 0.50); Calcium 8.9 mg/dL (8.4-10.2); Carbon Dioxide 29 mmol/L (22-29); Chloride 108 mmol/L (96-108); Cholesterol 247 mg/dL (<200); Estimated Glomerular Filt Rate > 60; Glucose Fasting 73 mg/dL (60-99); HDL Cholesterol 76 mg/dL (>40); LDL Cholesterol Calculated 147 mg/dL (<100); Potassium 4.2 mmol/L (3.3-5.1); Sodium 142 mmol/L (135-145); TSH reflex Free T4 0.86 uIU/mL (0.32-4.0); Total Protein 7.1 g/dL (6.5-8.0); Triglycerides 120 mg/dL (<150); Vitamin D 25-OH Total 33.6 ng/mL (>30)
[2024-07-26 11:40] LABS: Folate 11.5 ng/mL (> or = 4.0); Vitamin B12 409 pg/mL (200-900)
[2024-08-03 14:43] LABS: Vitamin B1 13 nmol/L (8-30)
== END 2024-07-26 09:01 | disposition home or self-care (01) ==
LOC: HO.HMGCLDS 09:00
PROVIDERS: PCP Internal Medicine; Visit Provider Physician Assistant Medical
DX: Z00.00 Encounter for general adult medical examination without abnormal findings (principal); Z13.1 Encounter for screening for diabetes mellitus; Z13.6 Encounter for screening for cardiovascular disorders
CPT/HCPCS: 36415; 80053; 80061; 80076; 82248; 82306; 82607; 82746; 83036; 83735; 84425; 84443; 85025; 86140

== ENCOUNTER 2024-08-25 07:45 | Outpatient (REF) | payer MEDICARE, OTHER, SELFPAY ==
--- OUTSIDE RECORDS SUMMARY | 2024-08-25 07:48 | XMS_ITS | Encounter Summary ---
Author Organization [facility] Address [address] [place] [address] Care Team Providers Care Manager Group Name Role Phone No, Pcp (Do Not Change Name) Primary Care Provid er Unavailable Encounter Details Date Type Department Care Team (Late st Contact Info) Description 10/10/2023 Transcribed Orders [facility] SCHEDULING [address] [place] [address] Referral, Self Social History Tobacco Use Types [...] Care Team (Late st Contact Info) Description 09/22/2024 9:30 AM EDT Follow Up [facility] Center & Neuro-Immunology [address] [address] Richard Lewis MD [address] [place] [address] documented as of this encounter Visit Diagnoses Not on filedocumented in this encounter Additional Health Concerns Assessment Noted Time PHQ-9 Depression Total Score: 0 09/24/19 24 9:25 AM EDT documented as of this encounter Care Teams Manager Group Relationship Specialty Start Date End Date No, Pcp (Do Not Change Name) PCP - General 07/19/24 documented as of this encounter
--- OUTSIDE RECORDS SUMMARY | 2024-08-25 07:48 | XMS_ITS | Encounter Summary ---
Author Organization [facility] Address [address] [place] [address] Care Team Providers Care Leaf Stamper Name Role Phone No, Pcp (Do Not Change Name) Primary Care Provid er Unavailable Encounter Details Date Type Department Care Team (Late st Contact Info) Description 03/08/2024 Scanned Document INTERFACE DEFAULT [address] [place] [address] System, Provider Not In Social History Tobacco [...] Description 09/22/2024 9:30 AM EDT Follow Up [facility] [address] [place] [address] Richard Lewis MD [address] [place] [address] documented as of this encounter Procedures Procedure Name Priority Date/Time Associated Diagnosis Comments CT RESULT SCAN 03/08/2024 12:00 AM EST CARDIAC EKG RESULT SCAN 03/08/2024 12:00 AM EST LAB SCAN 03/08/2024 12:00 AM EST documented in this encounter Results * CT Result Scan (03/08/2024 12:00 AM EST) us Provider Not In System IMG SCAN REPORTS [...] documented as of this encounter Care Teams Leaf Stamper Relationship Specialty Start Date End Date No, Pcp (Do Not Change Name) PCP - General 07/19/24 documented as of this encounter
--- OUTSIDE RECORDS SUMMARY | 2024-08-25 07:48 | XMS_ITS | Clinical Summary ---
Author Organization [facility] Address [address] [address] Phone Care Team Providers Care Sports Manager Name Role Phone Gustavo Suarez DO Primary Care Provider [phone] Allergies Active Allergy Reactions Criticality Noted Date [...] formulations. However, I do believe that her belt maker should weigh in on this as well. Therefore, I will send a copy of today's note. Her current dose of estradiol is 0 0.075 mg per 24 hours changed weekly. I cannot find in the chart where her previous dose was but according to the notes it was decreased to this current dose. If her belt maker is in agreement, she will call when [...] Comments Breast Cancer Screening 1960 Pneumococcal Vaccine: 50+ Ye ars (1 of 2 - PCV) 01/09/1979 Colorectal Cancer Screening: Annual FOBT 01/09/2009 Colorectal Cancer Screening: Colonoscopy 01/09/2009 Colorectal Cancer Screening: Sigmoidoscopy 01/09/2009 Influenza Vaccine (Season Ended) 2025 Hepatitis B Vaccine Aged Out No longe r eligible based on patient's age to complete this topic Insurance Elie WALKER [place] [employer] MCR Adv PPO ([id number]) ) [facility] Open Access [id number]) Care Teams Sports Manager Relationship Specialty Start Date End Date Gustavo Suarez DO [address] [place] [address] PCP - General 05/15/20
--- OUTSIDE RECORDS SUMMARY | 2024-08-25 07:48 | XMS_ITS | Encounter Summary ---
Author Organization [facility] Address [address] [place] [phone] Care Team Providers Care Biscuit Maker Name Role Phone No, Pcp (Do Not Change Name) Primary Care Provid er Unavailable Encounter Details Date Type Department Care Team (Late st Contact Info) Description 08/08/2023 Scanned Document [facility] [address] [place] [address] [phone] Marquita Gallegos MD [address] [place] [phone] Social History Tobacco Use Types Packs/Day [...] EDT Follow Up [facility] [address] [place] [address] [phone] Richard Lewis MD [address] [place] [phone] documented as of this encounter Visit Diagnoses Not on filedocumented in this encounter Care Teams Biscuit Maker Relationship Specialty Start Date End Date No, Pcp (Do Not Change Name) PCP - General 07/19/24 documented as of this encounter
--- OUTSIDE RECORDS SUMMARY | 2024-08-25 07:48 | XMS_ITS | Clinical Summary ---
Author Organization [facility] Address [address] [address] Phone Care Team Providers Care Needle Punch Machine Operator Helper Name Role Phone Clarence Leiva MD Primary Care Provider [phone] Allergies Active Allergy Reactions Criticality Noted Date [...] at bedtime. 60 tablet 5 05/20/2024 Active dicyclomine (BENTYL) 10 mg capsule Take 1 capsule (10 mg total) by mouth 4 (four) times a day if needed. Active diazePAM (VALIUM) 5 mg tablet Take 1 tablet (5 mg total) by mouth 3 (three) times a day. Active coenzyme Q-10 30 mg capsule Take 1 capsule (30 mg total) by mouth 1 (one) time each day. Active B complex-vitamin C-folic acid (REBECCA-TAMIKO) 1-60-300 mg-mg-mcg tablet Take 1 tablet by mouth 1 (one) time each day with breakfast. Active EPINEPHrine (AUVI-Q) 0.15 mg/0.15 mL inj auto-injector injection Inject 0.15 mL (0.15 mg total) into the thigh 1 (one) time if needed. Active dronedarone (MULTAQ) 400 mg tablet Take 1 tablet (400 mg total) by mouth 2 (two) times a day. 60 each 11 08/02/2024 Active Active Problems Problem Noted Date Diagnosed Date PVC's (premature ventricular contractions) 07/27 CAD (coronary artery disease) 06/09/2024 Non-ST elevation TX (NSTEMI) ([facility] V24, [facility]/ [facility] V28) 06/09/2024 Dizziness 04/14/2024 Assessment & Plan (04/14/2024 [...] this time she is working with a bad work gatherer and will continue to work on dietary adjustments, alternative therapies may be readdressed at her next visit. I have reviewed with the patient the importance of a heart healthy lifestyle which includes eating a low-fat low-salt diet, getting regular exercise, maintaining a healthy weight, not smoking, and following up with routine medical care. PAF (paroxysmal atrial fibri llation) ([facility] V24, [facility] V28) 03/10/2024 Assessment & Plan (04/14/2024 4:08 PM [...] Encounters Date Type Department Care Team Description 08/13/2024 1:30 PM EDT Office Visit [facility] Cardiology [facility] [address] [place] [address] Ziggy Ventura MD Paroxysmal A-fib ([facility] V24, [facility] V28) 08/02/2024 8:[address] [facility] [address] [place] [address] Tu Santamaria MD PAF (paroxysmal atrial fibrillation) ([facility] V24, [facility] V28) (Primary Dx) 06/11/[address] [facility] [address] [place] [address] Tu Santamaria MD No Show 05/27/2024 11:00 AM EST Ancillary Procedure [facility] [address] [place] [address] Shortness of breath; Chest pain, unspecified type from Last 3 Months Surgical History Surgery Date Site/Laterality Comments OTHER SURGICAL HISTORY PROCEDURE:pvc abalation TOTAL KNEE ARTHROPLASTY Right PROCEDURE:REPLACEMENT TOTAL KNEE BUNIONECTOMY PROCEDURE:BUNIONECTOMY DISC REMOVAL PROCEDURE:DISC REMOVAL SHOULDER SURGERY PROCEDURE:SHOULDER SURGERY OTHER SURGICAL HISTORY PROCEDURE:thumb surgery APPENDECTOMY PROCEDURE:APPENDECTOMY TONSILLECTOMY PROCEDURE:TONSILLECTOMY Medical History Medical History Date Comments Hypertension DX:Hypertension A-fib ([facility] V24, [facility] V28) DX:A-fib ([facility]) Cardiac microvascular disease DX :Cardiac microvascular disease [...] Sign Reading Time Taken Comments Blood Pressure 116/78 08/13/2024 2:25 PM EDT Pulse 78 08/13/2024 2:25 PM EDT Temperature 36.7 ??C (98 ??F) 04/06/2024 8:30 AM EST Respiratory Rate 12 04/06/2024 11:13 AM EST Oxygen Saturation 96% 08/13/2024 2:25 PM EDT Inhaled Oxygen Concentration - - Weight 53.5 kg (118 lb) 08/13/2024 2:25 PM EDT Height 160 cm (5' 3 ) 08/13/2024 2:25 PM EDT Body Mass Index 20.9 08/13/2024 2:25 PM EDT Plan of Treatment Health Maintenance Due Date Last Done Comments Breast Cancer Screening 1960 DTaP,Tdap,and Td Vaccines (1 - Tdap) 01/09/1979 Cervical Cancer Screening: P ap Smear 01/09/1981 Pneumococcal Vaccine: 50+ Years (1 of 1 - PCV) 01/09/2010 Zoster Vaccines (2 of 2) 02/02/2018 12/08/2017 RSV Immunization Adult Patients (1 - Risk 60-74 years 1-dose series) 2020 Cholesterol Screening (Lipid Panel) 04/12/2022 Colorectal Cancer Screening: Colonoscopy 04/12/2022 HIV Screening 04/12/2022 Hepatitis C Screening 04/12/2022 Medicare Annual Wellness Visit 04/12/2022 Social Influencers of Health Screening 04/12/2022 COVID-19 Vaccine (3 - 2023-2 5 season) 2024 09/14/2021, 12/13/2020 Influenza Vaccine (Season Ended) 2025 03/12/2016 Depression Screening 01/26/2025 01/27/2024 Hypertension/CHF/CAD Annual [...] age to complete this topic Meningococcal B Vaccine Aged Out No l onger eligible based on patient's age to complete [...] Procedure Name Priority Date/Time Associated Diagnosis Comments ECG 12-LEAD Routine 08/02/2024 9:36 AM EDT PAF (paroxysmal atrial fibrillation) ([facility] V24, [facility] V28) EXTERNAL CLINICAL LAB Routine 07/26/2024 2:55 PM EDT TRANSTHORACIC ECHOCARDIOGRAM (TTE) COMPLETE Routine 05/27/2024 11:59 AM EST Shortness of breath Chest pain, unspecified type COMPREHENSIVE METABOLIC PANEL STAT 04/05/2024 2:46 PM EST from Last 3 Months or Most Recently Relevant to Health Maintenance Results * ECG 12 lead (08/02/2024 9:36 AM EDT) Ventricular Rate ECG 86 BPM GEMUSE Atrial Rate 86 BPM GEMUSE P-R Interval 194 ms GEMUSE QRS Duration 84 ms GEMUSE Q-T Interval 366 ms GEMUSE QTc 437 ms GEMUSE P Wave Center 67 degrees GEMUSE R Center 40 degrees GEMUSE T Center 52 degrees GEMUSE ECG Interpretation Sinus rhythm with occasional Premature ventricular complexes Normal ECG When compared with ECG of 14-APR-2024 13:21, No significant change was found Confirmed by Arcadio SANTAMARIA, TU ([id number]) on 08/16/2024 3:35:54 PM GEMUSE 08/02/2024 8:54 AM EDT 08/16/2024 3:35 PM EDT us Tu Santamaria MD ECG ORDERABLES Edited Result - Final GEMUSE * External clinical lab (07/26/2024 2:55 PM EDT) us Historical Provider LAB BLOOD ORDERABLES Isabela l Result * (ABNORMAL) TRANSTHORACIC ECHOCARDIOGRAM (TTE) COMPLETE (05/27/2024 11:59 AM EST) Left [facility] 5.3 cm CV PACS Left [facility] 4.3 cm CV PACS LA Area Sys [...] CV ECHO PROCEDURES Final Resul t * (ABNORMAL) Comprehensive metabolic panel (04/05/2024 2:46 PM EST) Sodium 145 133 - 145 mmol/L LAB CHEMISTRY METHOD 04/05/2024 3:28 PM [facility] Potassium 3.8 3.5 - 5.5 mmol/L LAB CHEMISTRY METHOD 04/05/2024 3:28 PM [facility] Chloride 111(H) 96 - 110 mmol/L LAB CHEMISTRY METHOD 04/05/2024 3:28 PM [facility] CO2 26 21 - 32 mmol/L LAB CHEMISTRY METHOD 04/05/2024 3:28 PM [facility] Anion Gap 8 3 - 11 LAB CHEMISTRY METHOD 04/05/2024 3:28 PM [facility] Glucose 84 70 - 100 mg/dL LAB CHEMISTRY METHOD 04/05/2024 3:28 PM [facility] BUN 9 5 - 25 mg/dL LAB CHEMISTRY METHOD 04/05/2024 3:28 PM [facility] Creatinine 0.63 0.50 - 1.10 mg/dL LAB CHEMISTRY METHOD 04/05/2024 3:28 PM [facility] eGFR 99 >=60 mL/min/1. 73m2 LAB CHEMISTRY METHOD 04/05/2024 3:28 PM [facility] Comment:Calculation based on the??Chronic Kidney Disease Epidemiology Collaboration (CKD-EPI) equation refit??without adjustment for race. BUN/Creatinine Ratio 14.3 LAB CHEMISTRY METHOD 04/05/2024 3:28 PM [facility] Calcium 9.5 8.5 - 10.5 mg/dL LAB CHEMISTRY METHOD 04/05/2024 3:28 PM [facility] AST (SGOT) 24 10 - 42 unit/L LAB CHEMISTRY METHOD 04/05/2024 3:28 PM [facility] ALT (SGPT) 19 10 - 60 unit/L LAB CHEMISTRY METHOD 04/05/2024 3:28 PM [facility] Alkaline Phosphatase 65 42 - 121 unit/L LAB CHEMISTRY METHOD 04/05/2024 3:28 PM [facility] Total Protein 6.6 6.0 - 8.0 g/dL LAB CHEMISTRY METHOD 04/05/2024 3:28 PM [facility] Albumin 3.7 3.2 - 5.0 g/dL LAB CHEMISTRY METHOD 04/05/2024 3:28 PM [facility] Total Bilirubin 0.6 0.0 - 1.4 mg/dL LAB CHEMISTRY METHOD 04/05/2024 3:28 PM [facility] Blood Venous blood specimen / Unknown Venipuncture / Unknown 04/05/2024 2:46 PM EST 04/05/2024 2:59 PM EST us Enrique Moyer MD LAB BLOOD ORDERABLES Final Result [facility] [address] [place] [address], from Last 3 Months or Most Recently Relevant to Health Maintenance [facility] [employer] [facility] Directives Documents on File Type Date Recorded Patient Fire Claims Adjuster Expl anation Health Care Decision (hx) 02/15/2022 AD SPAULDING DIRECTIVE Health Care Decision (hx) 02/15/2022 AD SPAULDING DIRECTIVE Health Care Decision (hx) 02/15/2022 AD SPAULDING DIRECTIVE Care Teams Needle Punch Machine Operator Helper Relationship Specialty Start Date End Date Clarence Leiva MD [facility] [address] [place] [address] [address] [place] [address] PCP - General Internal Medicine 08/02/24
--- OUTSIDE RECORDS SUMMARY | 2024-08-25 07:48 | XMS_ITS | Encounter Summary ---
Author Organization [facility] Address [address] [place] [phone] Care Team Providers Care Senior Energy Trader Name Role Phone No, Pcp (Do Not Change Name) Primary Care Provid er Unavailable Encounter Details Date Type Department Care Team (Late st Contact Info) Description 03/26/2024 Scanned Document INTERFACE DEFAULT [address] [place] [address] System, Provider Not In Social History [...] EDT Follow Up [facility] [address] [place] [phone] Richard Lewis MD [address] [place] [address] documented as of this encounter Visit Diagnoses Not on filedocumented in this encounter Additional Health Concerns Assessment Noted Time PHQ-9 Depression Total Score: 0 01/27/20 8:26 AM EDT documented as of this encounter Care Teams Senior Energy Trader Relationship Specialty Start Date End Date No, Pcp (Do Not Change Name) PCP - General 07/19/24 documented as of this encounter
--- OUTSIDE RECORDS SUMMARY | 2024-08-25 07:48 | XMS_ITS | Clinical Summary ---
Author Organization [address] Address [address] [place] [phone] Care Team Providers Care Senior Accountant Name Role Phone No, Pcp (Do Not Change Name) Primary Care Provid er Unavailable Allergies Active Allergy Reactions Criticality Noted Date Comments Adhesive Tape-Silicones Other (See Comments) Medium Beta-Blockers (Beta-Adrenergic Blocking Agts) Other (See Comments) Medium 07/19/2024 Joint swelling Codeine Hives,Nausea And Vomiting,Other (See Comments),Rash High 07/09/2017 Hydrocodone-Acetaminoph en Dizziness,Nausea And Vomiting,Other (See Comments) Medium 11/27/2022 Lactose Other (See Comments),GI Upset Medium 07/04/2020 Mold Other (See Comments) Medium 01/27/2024 Burning and tinging feeling when exposed Oxycodone Nausea Low 09/24/2023 Oxycodone-Acetaminophen Nausea And Vomiting Low 05/2021 Penicillins Hives,Other (See Comments),Rash High 07/09/2017 Yclmfmd-Xib-Qgv Reductase Inhibitors Other (See Comments) Medium 07/19/2024 Joint pain Medications gabapentin (NEURONTIN) 600 mg tablet Take 2 tablets (1,200 mg total) by mouth at bedtime. 4 Active ELIQUIS 5 mg Tab tablet 3 Active baclofen (LIORESAL) 20 mg tablet Take 1 tablet (20 mg total) by mouth 3 (three) times daily. 4 Active lamoTRIgine XR (LAMICTAL XR) 200 mg 24 hr tablet 2 tablets Orally Once a day Active nitroGLYCERIN (NITROSTAT) 0.[address] 1 tablet under the tongue every 5 minutes if needed for chest pain for up to 3 doses Sublingual Once a day Active methylphenidate HCl (RITALIN) 20 mg Immediate Release tablet Take 1 tablet (20 mg total) by mouth 2 (two) times daily. Active ergocalciferol (DRISDOL) 1,250 mcg (50,000 unit) capsule 3 Active buPROPion (WELLBUTRIN) 75 mg immediate release tablet 4 Active estradioL (CLIMARA) 0.075 mg/24 hr 3 Active omeprazole (PRILOSEC) 20 mg capsule Active valACYclovir (VALTREX) 500 mg tablet Take 1 tablet (500 mg total) by mouth 2 (two) times daily. 3 Active acetaminophen (TYLENOL) 500 mg tablet TAKE 2 TABLET ORALLY EVERY 8 HOURS NEEDED FOR MILD-MODERATE PAIN 3 Active biotin 10 mg Tab Take 1 tablet by mouth daily. Active docusate sodium (COLACE) 100 mg capsule Take 1 capsule (100 mg total) by mouth 2 (two) times daily. 3 Active diazePAM (VALIUM) 5 mg tabletIndicatio ns:muscle spasm,Stiff person syndrome Take 1 tablet (5 mg total) by mouth 3 (three) times daily. 90 tablet 1 5 Active dicyclomine (BENTYL) 10 mg capsule 4 Active diazePAM (VALIUM) 5 mg tablet Take 1 tablet (5 mg total) by mouth 3 (three) times daily. Active albuterol sulfate (VENTOLIN HFA) 90 mcg/actuation HFA aerosol inhaler Inhale 2 puffs into the lungs every 6 (six) hours as needed for wheezing. Active EPINEPHrine 0.3 mg/0.3 mL Inj auto-injector Inject 0.3 mg into the muscle once as needed for anaphylaxis. Active co-enzyme Q-10 (CO Q-10) 100 mg capsule Take 1 capsule (100 mg total) by mouth daily. Active omega-3 acid ethyl esters (LOVAZA) 1 gram capsule Take 2 capsules (2 g total) by mouth 2 (two) times daily. Active Encounters Date Type Department Care Team Description 07/26/2024 Telephone [facility] [address] [place] [phone] Richard Lewis MD Triage (Increased muscle spasms ) 07/19/2024 1:00 PM EDT Office Visit Neuromuscular Medicine at [address] [facility] [address] [place] [address] Richard Lewis MD Usman, Uzma, MD Muscle cramping (Primary Dx); Muscle spasm; Stress incontinence of urine 07/09/2024 Refill [facility] [address] [place] [phone] Richard Lewis MD Medication Refill 07/06/2024 Orders Only [facility] [address] [place] [phone] Kimberly Woodard MD Muscle cramping (Primary Dx) 07/05/2024 Telephone [facility] [address] [place] [phone] Richard Lewis MD Other; Referral 06/21/2024 Telephone [facility] [address] [place] [phone] Richard Lewis MD Other 06/18/2024 Refill [facility] [address] [place] [address] Richard Lewis MD Medication Refill; Other 06/11/2024 10:00 AM EST Nutrition Allergy & Immunology at [address] [place] [address] [address] [place] [address] Unintentional weight loss (Primary Dx) 06/09/2024 Scanned Document INTERFACE DEFAULT [address] [place] [phone] System, Provider Not In 06/08/2024 Telephone [facility] [address] [place] [phone] Richard Lewis MD Other from Last 3 Months Social History Tobacco Use Types Packs/Day Years Used Date Smoking Tobacco: Never Tobacco Cessation:Counseling Given: Not Answered Alcohol Use Standard Drinks/Week Comments Not Currently 0 (1 standard drink = 0.6 oz pur e alcohol) PHQ-2 Answer Date Recorded PHQ-2 Total Score [...] Sign Reading Time Taken Comments Blood Pressure 123/78 07/19/2024 1:08 PM EDT Pulse 86 07/19/2024 1:08 PM EDT Temperature 37.1 ??C (98.7 ??F) 07/19/2024 1 :08 PM EDT Respiratory Rate 20 05/25/2024 10:1 5 AM EST Oxygen Saturation 97% 07/19/2024 1:0 8 PM EDT Inhaled Oxygen Concentration - - Weight 54 kg (119 lb) 07/19/2024 1:08 PM EDT hgt & wgt per pt Height 160 cm (5' 3 ) 07/19/2024 1:08 PM EDT Body Mass Index 21.08 07/19/2024 1:08 PM EDT Plan of Treatment Upcoming Encounters Date Type Department Care Team (Late st Contact Info) Description 09/22/2024 9:30 AM EDT Follow Up [facility] [address] [phone] Richard Lewis MD [facility] [place] [address] Health Maintenance Due Date Last Done Comments HIV screening 01/09/1973 Hepatitis C screening 01/09/1978 Tetanus adult (Td q 10,TDAP once) 1980 Cervical cancer screening 01/09/1981 Breast cancer screening 2000 Lipid disorder screening 2000 Colon cancer screening, Colonoscopy 01/09/2005 Diabetes screening 01/09/2005 Pneumococcal Vaccine (50+ years) (1 of 1 - PCV) 01/09/2010 Shingles vaccine (Shingrix) (2 of 2 - Shingrix (RZV) 2 Dose Standard Series) 02/07/2018 12/08/2017 Covid-19 vaccine series ( season) 2024 09/14/2021, 12/13/2020 Influenza vaccine 01/03/2025 03/12/2016 RSV Immunization (1 - 1-dose 75+ series) 01/09/2035 Meningococcal Vaccine Aged Out No kamla holly eligible based on patient's age to complete this topic Insurance [facility] [place] [id number] [address] [facility] [address] [place] [address] [facility] [place] [id number] Care Teams Senior Accountant Relationship Specialty Start Date End Date No, Pcp (Do Not Change Name) PCP - General 07/19/24
--- OUTSIDE RECORDS SUMMARY | 2024-08-25 07:48 | XMS_ITS | Encounter Summary ---
Author Organization [facility] and [facility] Address [address] [place] [phone] Care Team Providers Care Psychic Reader Name Role Phone No, Pcp (Do Not Change Name) Primary Care Provid er Unavailable Reason for Referral * Physical Medicine (Routine) - New Request Specialty Diagnoses / Procedures Referred By Maria Isabel shahid Referred To Contact Physical Therapy Diagnoses Weakness Muscle spasm Richard Lewis MD [address] [place] [address] Phone: tel: fax: Referral ID Status Reason Start Date Expiration Date Visits Requested Visits Authorized [id number] New Request Specialty Services Required 07/26/2024 07/26/2025 1 1 Reason for Visit * Reason Onset Date Comments Triage 07/26/2024 Increased muscle spasms Encounter Details Date Type Department Care Team (Late st Contact Info) Description 07/26/2024 Telephone [facility] [address] [address] Richard Lewis MD [address] [place] [address] Triage (Increased muscle spasms ) Social History Tobacco Use Types Packs/Day Years Used Date Smoking Tobacco: Never Alcohol Use Standard Drinks/Week Comments [...] Telephone Encounter - Peggy Tinoco RN - 07/26/2024 4:07 PM EDT Faxed to [facility] * Telephone Encounter - Peggy Tinoco RN - 07/26/2024 12:25 PM EDT Called and spoke with patient. Pt reports that today is bad, she reports that she is talking slow and having difficulty finding her words. Pt reports that she is having very bad muscle cramping in her abdomen and right hip and right groin and it it making her sacral nerve stimulator not work. She reports she is having difficulty walking. Pt reports she went to see neuro muscular and it did not go well, unable to say why. PT is currently taking valium 5 mg BID, she reports that it helps with herpain but she is having stiffness. * Telephone Encounter - Zonia Callejas PCT - 07/26/2024 12:04 PM EDT Pt. Called to speak with a RN as she is having difficulty with increased muscle spasms. Pt. Reportsit is affecting her sacral stimulator. She is also having difficulty with speech, she is talking very slow and she has questions. Please advise documented in this encounter Plan of Treatment Upcoming Encounters Date Type Department Care Team (Late st Contact Info) Description 09/22/2024 9:30 AM EDT Follow Up [facility] [address] [place] [phone] Richard Lewis MD [address] [place] [address] Scheduled Referrals Name Type Priority Associated Diagnoses Order Schedule Ambulatory referral to Rehab Services - Physical Therapy Outpatient Referral Routine Weakness Muscle spasm Ordered: 07/26/2024 documented as of this encounter Visit Diagnoses Diagnosis Weakness- Primary Other malaise and fatigue Muscle spasm Spasm of muscle documented in this encounter Additional Health Concerns Assessment Noted Time PHQ-9 Depression Total Score: 0 01/27/20 24 8:26 AM EDT documented as of this encounter Care Teams Psychic Reader Relationship Specialty Start Date End Date No, Pcp (Do Not Change Name) PCP - General 07/19/24 documented as of this encounter
--- OUTSIDE RECORDS SUMMARY | 2024-08-25 07:48 | XMS_ITS | Encounter Summary ---
Author Organization [facility] Address [address] [place] [phone] Care Team Providers Care Telecommunications Field Technician Name Role Phone No, Pcp (Do Not Change Name) Primary Care Provid er Unavailable Reason for Visit * Reason Onset Date Comments Triage 10/10/2023 Encounter Details Date Type Department Care Team (Late st Contact Info) Description 10/10/2023 Telephone [facility] [address] [place] [address] Richard Lewis MD [address] [place] [phone] Triage Social History Tobacco Use Types Packs/Day [...] being worked up for MS at the [facility] and was scheduled to start on Ocrevus in 10/2021. 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 She needed to go to rehab after this event as she required a wheelchair. She occasionally experiences blurry vision but follows regularly with her winder hand. * Telephone Encounter - Katarina Handy - 10/10/2023 11:04 AM EDT Copied from [facility] #[id number]. Topic: General Message - [facility] >> Oct 10, 2023 11:00 AM Katarina Shukla wrote: [facility] MESSAGE Time of call: 11:00 [...] urgently? no Best telephone number for callback: [phone] Best time to return call: any Permission to leave message: yes Katarina Handy [facility] Mobile Sales Assistant documented in this encounter Plan of Treatment Upcoming Encounters Date Type Department Care Team (Late st Contact Info) Description 09/22/2024 9:30 AM EDT Follow Up [facility] [address] [place] [address] Richard Lewis MD [address] [place] [phone] documented as of this encounter Visit Diagnoses Not on filedocumented in this encounter Additional Health Concerns Assessment Noted Time PHQ-9 Depression Total Score: 0 09/24/19 24 9:25 AM EDT documented as of this encounter Care Teams Telecommunications Field Technician Relationship Specialty Start Date End Date No, Pcp (Do Not Change Name) PCP - General 07/19/24 documented as of this encounter
--- OUTSIDE RECORDS SUMMARY | 2024-08-25 07:48 | XMS_ITS | Clinical Summary ---
Author Organization [facility] Address [address] [place] [address] Care Team Providers Care Teacher Asst Name Role Phone Gustavo Suarez DO Primary [...] 5 12/01/2023 Active ergocalciferol (VITAMIN D2) capsule 42931 units Take 1 capsule (50,000 Units total) [...] age to complete this topic Care Teams Teacher Asst Relationship Specialty Start Date End Date Gustavo Suarez DO [address] [place] [phone] PCP - General Internal Medicine 06/23/18
--- OUTSIDE RECORDS SUMMARY | 2024-08-25 07:49 | XMS_ITS | Continuity of Care Document ---
Author Organization [facility] [address] [facility] [address] [address] [place] [address] Phone [phone] Care Team Providers Care National Recruiter Name Role Phone Gustavo Suarez M.D. Care Team Information Recei yadira [phone] Clarence Leiva MD Care Team Information R eceiver [phone] Problems Active Problems Provider Date Multinodular goiter [...] Apply 1 Patch Once A Week Unknown Mdvielat88el Tablets Take 1 Tablet By Mouth Twice Daily as Needed For Muscle Spasm Krystina Mendez NP Sipynmpie8ah Tablets Take half hs Unknow n Vitamin D (Ergocalciferol)1.25mg (62479 Ut) Capsules Take 1 Capsule By Mouth every other week Unknown Kznmokemtz40pk Capsules DR Take 1 Capsule By Mouth Every Day 30 Minutes Before Breakfast Gustavo Suarez M.D. Ndnnfcdicj442il Tablets 300mg am, 300mg 2pm, 1200mg 8pm Unknown Zsmkabc1xe Tablets Take 1 Tablet By Mouth Twice Daily Linda Astudillo MD Lamotrigine CI396kv Tablets ER 24HR Take 2 Tablets By Mouth Every Day Unknown Methylphenidate XDZ64xf Tablets Take 1 Tablet By Mouth Three Times Daily prn Unknown Valacyclovir LON240kt Tablets Unknown Tizanidine HCL2mg Tablets Unknown Dicyclomine YNN38ya Capsules Take 1 Capsule By Mouth Four Times Daily as Needed For Abdominal Cramps Brenda Hurt MD Vital Signs Date Vital Result Comment 07/30/2024 1:29pm BP Systolic 140 mmHg BP Diastolic 70 mmHg Heart Rate 85 /min Height 63 inches 5'3 Weight 116.00 lb per patient BMI (Body Mass Index) 20.5 kg/m2 Results Test Acquired Date Facility Test Result H/L Range Note Cortisol - Am 08/09/2024 [facility] Cortisol - Am 16.7 g /dL 6.2-19. 4 TSH Rfx on Abnormal to Free T4 07/26/2024 [facility] TSH Rfx on Abnormal to Free T4 0.762 uIU/mL 0.450-4 .500 Thyroxine (T4) Free, Direct 07/26/2024 [facility] Thyroxine (T4) Free, Direct 0.97 ng/dL 0.82-1. 77 Triiodothyronine (T3), Free 07/26/2024 [facility] Triiodothyronine (T3), Free 3.0 pg/mL 2.0-4.4 Thyrotropin Receptor Ab, Serum 08/18/2023 [facility] Thyrotropin Receptor Ab, Serum <1.10 IU/L 0.00-1. 75 Triiodothyronine (T3), Free 08/18/2023 [facility] Triiodothyronine (T3), Free 3.5 pg/mL 2.0-4.4 TSH+Free T4 08/18/2023 [facility] TSH 0.071 uIU/mL Low 0.450-4 .500 T4,Free(Direct) 1.32 ng/dL 0.82-1. 77 TSH With Reflex To FT4 12/12/2022 [facility] TSH With Reflex To FT4 0.33 uIU/mL Low (0.4-4. 2) Anti Thyroid Peroxidase AB 12/12/2022 [facility] Anti Thyroid Peroxidase AB <3.0 IU/mL (<5.6) 1 25Oh Vitamin D 12/12/2022 [facility] 25Oh Vitamin D 50.0 NG/ML (20-50) Free T4 12/12/2022 [facility] Free T4 0.90 ng/dL (0.70-1 .80) 1 Antibody measurement represents one parameter in a multicriteria diagnostic process. Correlate results with clinical presentation. This test was performed on the AltaVitas immunoassay system. Medical Devices Description No Information [...] [facility] Plan of Treatment Future Appointment(s):* 11/02/2024 10:15 am - [facility] at Main Office 07/30/2024 - [facility]* * New Xrays:* Dexa Bone Density Study Axial Skeleton, Ordered: 07/30/24 Functional Status Description No Information Available Mental Status Description No Information Available Referrals Description No Information Available
--- OUTSIDE RECORDS SUMMARY | 2024-08-25 07:49 | XMS_ITS | Continuity of Care Document ---
Author Organization [facility] Address [address] [place] [address]- Support Name Relationship Address Phone JOVANNA, CARRILLO Personal Relationship Unknown Unav ailable JOVANNA, CARRILLO Personal Relationship Unknown Unav ailable JOVANNA, CARRILLO Personal Relationship Unknown Unav ailable JOVANNA DANIELLE Personal Relationship Unknown Un available JOVANNA, CARRILLO Personal Relationship Unknown Unav ailable JOVANNA, CARRILLO Personal Relationship Unknown Unav ailable JOVANNA, DAVID Personal Relationship Unknown Unavai lable JOVANNA, CARRILLO Personal Relationship Unknown Unav ailable JOVANNA, CARRILLO Personal Relationship Unknown Unav ailable JOVANNA, CARRILLO Personal Relationship Unknown Unav ailable JOVANNA, CARRILLO Personal Relationship Unknown Unav ailable JOVANNA, CARRILLO Personal Relationship Unknown Unav ailable JOVANNA, ASUNCION Personal Relationship Unknown Unav ailable JOVANNA, CARRILLO Personal Relationship Unknown Unav ailable JOVANNA, CARRILLO Personal Relationship Unknown Unav ailable JOVANNA, CARRILLO Personal Relationship Unknown Unav ailable JOVANNA, CARRILLO Personal Relationship Unknown Unav ailable JOVANNA, CARRILLO Personal Relationship Unknown Unav ailable JOVANNA, CARRILLO Personal Relationship Unknown Unav ailable JOVANNA, CARRILLO Personal Relationship Unknown Unav ailable JOVANNA, CARRILLO Personal Relationship Unknown Unav ailable JOVANNA, CARRILLO Personal Relationship Unknown Unav ailable DAIJA, NINO child Unknown Unavailable JOVANNA, CARRILLO Personal Relationship Unknown Unav ailable JOVANNA, CARRILLO Personal Relationship Unknown Unav ailable ALLENN, CARRILLO Personal Relationship Unknown Rose vailable JOVANNA, CARRILLO Personal Relationship Unknown Unav ailable JOVANNA, CARRILLO Personal Relationship Unknown Unav ailable JOVANNA, CARRILLO Personal Relationship Unknown Unav ailable JOVANNA, DAVID Personal Relationship Unknown Unavai lable PALLAVI II, LUCAS father Unknown Unavailab le JOVANNA, CARRILLO Personal Relationship Unknown Unav ailable JOVANNA, CARRILLO Personal Relationship Unknown Unav ailable JOVANNA, CARRILLO Personal Relationship Unknown Unav ailable JOVANNA, CARRILLO Personal Relationship Unknown Unav ailable JOVANNA, ASUNCION Personal Relationship Unknown Unav ailable JOVANNA, ASUNCION Personal Relationship Unknown Unav ailable ORJENNYFER ROSE Other Unknown Unavailable JOVANNA, CARRILLO Personal Relationship Unknown Unav ailable JOVANNA, ASUNCION Personal Relationship Unknown Unav ailable JOVANNA, CARRILLO S Personal Relationship Unknown Un available ORMERODQAMAR Other Unknown Unavailable JOVANNA, CARRILLO Personal Relationship Unknown Unav ailable JOVANAN, CARRILLO Personal Relationship Unknown Unav ailable JOVANNA, CARRILLO Personal Relationship Unknown Unav ailable RAYMOND NGUYEN child Unknown Unavailable JOVANNA, CARRILLO Personal Relationship Unknown Unav ailable JOVANNA, CARRILLO Personal Relationship Unknown Unav ailable JOVANNA, CARRILLO Personal Relationship Unknown Unav ailable JOVANNA, CARRILLO Personal Relationship Unknown Unav ailable JOVANNA, ASUNCION Personal Relationship Unknown Unav ailable JOVANNA, CARRILLO Personal Relationship Unknown Unav ailable Care Team Providers Care Purchasing And Claims Supervisor Name Role Phone Cali ENCISO, Clarence Mayfield Primary Care Physic miguel Encounter [facility] Date(s): 07/20/24 - 08/19/24 [facility] [address] Encounter Type: Triage Allergies, Adverse Reactions, Alerts Substance Criticality Severity Reaction Reaction Severity Status codeine Rash Active OxyCODONE Hydrochloride Active penicillins Rash Active Percocet Nausea and vomiting Active Adhesive Bandage Act joel Immunizations Given and Recorded Vaccine Date Status Refusal Reason SARS-CoV-2 mRNA (xawbexu-oxcc-wzxop) vax 09/14/21 Recorded SARS-CoV-2 (COVID-19) mRNA BNT-162b2 vac 12/13/20 Recorded zoster vaccine, inactivated 12/08/17 Recorded influenza virus vaccine, inactivated 03/12/16 Ronald rded Medications baclofen 20 mg oral tablet 20 mg, 1, tablet, By Mouth, 3 times a day, # 90 tablet, Refills 0, Maintenance, 10/13/23 9:18:00 PM EDT, Partial fill upon patient request if the prescription is for a schedule II opioid drug. Start Date: 10/13/23 Status: Ordered Quantity: 90.0 Unit: tablet Repeat number: 1 Biotin = 5,000 mcg, By Mouth, Daily, 0 Refills, Maintenance, 05/17/22 9:46:00 AM EST, Partial fill upon patient request if the prescription is for a schedule II opioid drug. Start Date: 05/17/22 Status: Ordered Repeat number: 1 dicyclomine 10 mg oral capsule 1 capsule = 10 mg, By Mouth, 4 times a day, PRN abdominal cramping, # 120 capsule, 1 Refills, Maintenance, 01/23/24 11:26:00 AM EDT, Capsule, [facility] #[id number], Partial fill upon patient request if the prescription is for a schedule II opioid drug., 160.02, cm, 01/23/24 10:41:00 EDT, Height, 56.7, kg, 10/27/23 6:38:00 EDT, Dry Weight Start Date: 01/23/24 Status: Ordered Quantity: 120.0 Unit: capsule Repeat number: 2 Eliquis 5 mg oral tablet 1 tablet, By Mouth, 2 times a day, # 60 tablet, 11 Refills, 01/28/24 11:58:00 AM EDT, [facility]) #[id number], 160.02, cm, 01/23/24 10:41:00 EDT, Height, 56.7, kg, 10/27/23 6:38:00 EDT, Dry Weight Start Date: 01/28/24 Status: Ordered Quantity: 60.0 Unit: tablet Repeat number: 12 Estradiol Patch 0.075 mg/24 hours weekly transdermal film, extended release 1 patch, Topically, Every week, # 12 patch, 0 Refills, Maintenance, 07/09/23 11:06:00 AM EST, Patch, Partial fill upon patient request if the prescription is for a schedule II opioid drug. Start Date: 07/09/23 Status: Ordered Quantity: 12.0 Unit: patch Repeat number: 1 gabapentin 600 mg oral tablet 2 tablet = 1,200 mg, By Mouth, Daily at bedtime, TK 1 T PO Q EVENING AND QHS OR 2 TS QHS Start Date: 02/07/20 Status: Ordered Repeat number: 1 lamotrigine 200 mg oral tablet, extended release 1 tablet = 200 mg, By Mouth, 2 times a day, TAKE 2 TABLETS BY MOUTH EVERY DAY Start Date: 07/09/23 Status: Ordered Repeat number: 1 LORazepam 1 mg oral tablet 2 tablet = 2 mg, By Mouth, Daily at bedtime, PRN Sleep, 0 Refills, Maintenance, 04/06/24 2:27:00 PM EST, Tablet, Partial fill upon patient request if the prescription is for a schedule II opioid drug. Start Date: 04/06/24 Status: Ordered Repeat number: 1 omeprazole 20 mg oral delayed release tablet 1 tablet = 20 mg, By Mouth, 2 times a day, # 120 tablet, 0 Refills, Maintenance, 11/21/21 1:40:00 PMEDT, EC Tablet, Partial fill upon patient request if the prescription is for a schedule II opioid drug. Start Date: 11/21/21 Status: Ordered Quantity: 120.0 Unit: tablet Repeat number: 1 ondansetron 4 mg oral tablet, disintegrating 1 tablet = 4 mg, By Mouth, Every 6 hours, PRN as needed for nausea/vomiting, # 20 tablet, 0 Refills, Maintenance, 07/01/23 9:34:00 PM EST, DIS Tablet, [facility] #[id number], Partial fill upon patient request if the prescription is for a schedule II opioid drug., 160, cm, 07/01/23 21:32:00EST, Height, 59.9, kg, 07/01/23 21:32:00 EST, Dry Weight Start Date: 07/01/23 Status: Ordered Quantity: 20.0 Unit: tablet Repeat number: 1 Ranexa 500 mg oral tablet, extended release 1 tablet = 500 mg, By Mouth, 2 times a day, # 60 tablet, 0 Refills, Maintenance, 04/07/24 8:08:00 AMEST, ER Tablet, [facility]) #[id number], Partial fill upon patient request if the prescription is for a schedule II opioid drug., 160, cm, 04/06/24 23:26:00 EST, Height, 53.5,kg, 04/06/24 11:50:00 EST, Dry Weight Start Date: 04/07/24 Status: Ordered Quantity: 60.0 Unit: tablet Repeat number: 1 tiZANidine 4 mg oral tablet 2 mg, By Mouth, 2 times a day, PRN, Refills 0, Maintenance, Spasm, 04/07/24 12:31:00 PM EST, Partialfill upon patient request if the prescription is for a schedule II opioid drug. Start Date: 04/07/24 Status: Ordered Repeat number: 1 valACYclovir 500 mg oral tablet 1,000 mg, 2, tablet, By Mouth, Daily, # 60 tablet, Refills 0, Maintenance, 10/13/23 9:20:00 PM EDT, Partial fill upon patient request if the prescription is for a schedule II opioid drug. Start Date: 10/13/23 Status: Ordered Quantity: 60.0 Unit: tablet Repeat number: 1 Vitamin D2 50,000 intl units (1.25 mg) oral capsule 1 capsule = 50,000 International_Units, By Mouth, Every week, # 4 capsule, 0 Refills, Maintenance, 10/07/23 4:17:00 PM EDT, Capsule, Partial fill upon patient request if the prescription is for a schedule II opioid drug. Start Date: 10/07/23 Status: Ordered Quantity: 4.0 Unit: capsule Repeat number: 1 Wellbutrin 75 mg oral tablet = 75 mg, By Mouth, 2 times a day, 0 Refills, Maintenance, 06/20/23 10:57:00 AM EST, Partial fill upon patient request if the prescription is for a schedule II opioid drug. Start Date: 06/20/23 Status: Ordered Repeat number: 1 Problem List Condition Confirmation Course Effective Dates Status H ealth Status Informant Anxiety Confirmed Active Atrial fibrillation Confirmed Active Bipolar affective disorder Confirmed Active CAD - Coronary artery disease Confirmed Active Diverticulosis Confirmed Active GERD (gastroesophageal reflux disease) Confirmed Active Stress incontinence of urine Confirmed Active Hx-TIA (transient ischemic attack) Confirmed Active Hypertension Confirmed Active Fecal incontinence Confirmed Active Sacroiliac inflammation Confirmed Active Menopausal syndrome Confirmed Active Cystocele, midline Confirmed Active Movement disorder Confirmed Active Multinodular goiter Confirmed Active BHANU (obstructive sleep apnea) Confirmed Active Urgency incontinence Confirmed Active Vaginal pain Confirmed Active Social History Social History Type Response Smoking Status Former smoker, quit more than 30 days ago entered on: 12/21/18 Sex Sex Representation Female (finding) Implantable Device List Procedure Provider Procedure Date Device Type Site Insertion Sacral Nerve Stimulator Stage Delphine Fofana MD 10/27/23 Unknown Buttock Right Device Identifier Serial Number Lot or Batch Number Manufacturing Date Expiration Date Distinct Identification Code MRI Safety Implantable Status Assigning Authority Unknown [id number] Unknown Unknown 11/29/24 Unknown Unknown Active Unknown Patient Care team information Care Team Personnel Name: Shawn ENCISO, Jean Marie Stauffer Position: [facility] Renal MD Member Role: Lifetime Consulting Physician Address: [address] [place] [address] [address] [place] [address]- Telecom: Name: Aga Huston RN Position: [facility] RN Member Role: Primary Care Nurse Name: Matt Beck RN Position: [facility] RN Member Role: Primary Care Nurse Name: Rambo Clarke RN Position: [facility] RN Member Role: Primary Care Nurse Name: Mariam Morocho RN Position: [facility] RN Member Role: Primary Care Nurse Name: Milena Addison RN Position: [facility] RN Member Role: Primary Care Nurse Name: Elke Julien RN Position: [facility] RN Member Role: Primary Care Nurse Name: Fabiana Dowling RN Position: [facility] RN Member Role: Primary Care Nurse Name: Delphine Rinaldi RN Position: [facility] RN Member Role: Primary Care Nurse Name: Marquita Velarde RN Position: [facility] RN Member Role: Primary Care Nurse Name: Aparna Rojas RN Position: [facility] RN Member Role: Primary Care Nurse Name: Cali ENCISO, Clarence Mayfield Position: Reference Physician Member Role: PCP Address: [address] [place] [address]- Telecom: Care Team Related Persons Name: NINO CHOE Name: LUCAS OLIVO II Name: RAYMOND NGUYEN Name: QAMAR YANCEY Insurance Providers Guarantor name: DANIELLE NUGENT Health Plan Information #: 1 Payer: [employer] MEDICARE ADV PPO Member Number: NA Policy Number: NA Group Number: NA Health Plan Information #: 2 Payer: CIG[employer] PPO MVP Member Number: NA Policy Number: NA Group Number: NA Health Plan Information #: 3 Payer: CIGNA HMO POS Member Number: NA Policy Number: NA Group Number: NA
--- OUTSIDE RECORDS SUMMARY | 2024-08-25 07:49 | XMS_ITS | Encounter Summary ---
Author Organization [facility] Address [address] [place] [address] Care Team Providers Care Layout Artist Name Role Phone No, Pcp (Do Not Change Name) Primary Care Provid er Unavailable Encounter Details Date Type Department Care Team (Late st Contact Info) Description 06/09/2024 Scanned Document INTERFACE DEFAULT [address] [place] [address] System, Provider Not In Social History [...] EDT Follow Up [facility] [address] [place] [address] Richard Lewis MD [address] [place] [address] documented as of this encounter Visit Diagnoses Not on filedocumented in this encounter Additional Health Concerns Assessment Noted Time PHQ-9 Depression Total Score: 0 01/27/20 8:26 AM EDT documented as of this encounter Care Teams Layout Artist Relationship Specialty Start Date End Date No, Pcp (Do Not Change Name) PCP - General 07/19/24 documented as of this encounter
--- OUTSIDE RECORDS SUMMARY | 2024-08-25 07:49 | XMS_ITS | Data Portability ---
Author Organization [place] [facility], [facility] Address [address] [address] Assessment No assessment recorded. 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, nasal cavity and accessory sinuses; Note: Date Diagnosed : 04/07/2020 1:44 PM (D14.0) Not Available [facility] 02:19:03 Ataxia 89680031 Active 2019 Ataxia, unspecifi ed; Note: Date Diagnosed : 04/07/2020 1:44 PM (R27.0) Not Available [facility] 4 02:18:41 Dysphagia 96394416 Active 2023 GISELA PRUETT MD [address] [facility] [address] [facility],[place] [address], [place], [phone] , [facility] [place] 10:19:25 Gastroeso phageal reflux disease without esophagit is 326492696 Active 2023 GISELA PRUETT MD [address] [facility] [address] [facility],[place] [address], [place], [address] , [facility] - [facility] [place] 4 10:19:44 Chronic hoarsenes s 19090448723 05 Active 2023 GISELA PRUETT MD [address] [facility] [address] [facility],[place] [address], [place], [address] , [facility] - [facility] [place] 10:20:46 Problem Notes None recorded. Procedures Surgical History Date Name Laterality Status Provider Name and Address Organization Details Recorded Time 11/11/2023 FFL_RE completed GISELA PRUETT MD [address] [facility] [address] [facility],[place] [address], [place], [address], [facility] - [facility] [place] 11/11/2023 10:26:08 Imaging Results Imaging Date Name [...] Name and Address Organization Details Recorded Time 14363 Product containin g penicilli n (product) medicatio n hives Not available Not available 09/16/2023 05380 8001 SNOMED React ion: skin rashe s, hives ;; Not Available [facility] 4 00:48:35 46278 codeine medicatio n nausea Not available Not available 09/16/2023 2670 RxNorm React ion: Stoma ch cramp s; Not Available [facility] 4 00:48:40 04474 acetamino phen / oxycodone medicatio n nausea Not available Not available 09/16/2023 04354 3 RxNorm React ion: nause a;; Not Available [facility] 4 00:48:40 Medications Name Sig [...] 20 mg tablet active Medicatio n ID: [id number] Br and Name: atorvasta tin Send Method: [...] release 24 hr active Medicatio n ID: [id number] Br and Name: isosorbid e mononitra te [...] 300 mg capsule active Medicatio n ID: [id number] Br and Name: gabapenti n Send Method: [...] 25 mg tablet active Medicatio n ID: [id number] Br and Name: metoprolo l tartrate Send [...] Updated DateTime 11/11/2023 160.02 cm 21.8 kg/m2 28349.86 g Delores Mejía [place] [facility] 11/11/2023 09:58:27 Social History None recorded. [...] Diagnosis Note [id number] GISELA PRUETT MD [facility] [address] [address] 11/11/2023 09:08:06 11/11/2023 10:28:26 Dysphagia 79727217 R13.10 see below Gastroesop hageal reflux disease without esophagitis 794847960 K21.9 continue omeprazole per prescribin g provider Chronic hoarseness 45148 34853 105 R49.0 Her right vocal cord is sluggish. No glottic gap. Likely recovering after ACDF. MBS showed a safe swallow. I suspect her neuromuscu lar disorder may contribute to her dysphagia as well and I recommend she keep f/u with her neurologis ts at [facility]. No ENT interventi on needed. No tumors [...] Name 11/11/2023 1 [employer] (MEDICARE REPLACEMENT PPO) [id number] Elke Denton [id number] Ying Denton 11/11/2023 2 [employer] - [facility] BENEFIT PLAN MANAGEMENT (PPO) Ying Denton [id number] Ying Denton Notes Date Note Type Note [...] swallowing. She is being worked up at [facility] for a neurologic disorder. She has muscle cramping and she can't use her left arm well. On omeprazole for GERD. Hx of ACDF. She has had some voice trouble since with difficulty projecting. GISELA PRUETT MD [address] [facility] [address] [facility],[place] [address], [place], [address], [facility] - [facility] 11/11/2023 10:28:19 OBGyn Episode No OBEpisode recorded.
--- OUTSIDE RECORDS SUMMARY | 2024-08-25 07:49 | XMS_ITS | Referral Summary ---
Author Organization [facility] Address [address] [place] [address] Care Team Providers Care Carpenters Supervisor Name Role Phone Gustavo Suarez Primary [...] Plan of Treatment Not on file Insurance [facility] * Guarantor: DANIELLE NUGENT Account Type Relation to Patient Date of Phone Billing Address Personal/Family 1960 Care Teams Carpenters Supervisor Relationship Specialty Start Date End Date Gustavo Suarez [address] [place] [address] [place] [address] PCP - General Internal Medicine 11/13/22
--- OUTSIDE RECORDS SUMMARY | 2024-08-25 07:49 | XMS_ITS | Clinical Summary ---
Author Organization [facility] Address [address] [place] [address] Care Team Providers Care Head Boys Golf Coach Name Role Phone Gustavo Suarez Primary Care Provider [phone] Allergies Active Allergy Reactions Criticality Noted Date [...] - 2023-2 5 season) 2024 09/14/2021, 12/13/2020 Alcohol/Substance Use Screening 05/05/2024 Depression Screening and Follow-Up 05/05/2024 Social Drivers of Health Annual Screening 05/05/2024 Influenza Vaccine (Season Ended) 2025 03/12/2016 Hepatitis B Vaccines Aged Out No long er eligible based on patient's age to complete this topic Insurance [facility] [employer] MCR * Guarantor: DANIELLE NUGENT Account Type Relation to Patient Date of Phone Billing Address Personal/Family 1960 Care Teams Head Boys Golf Coach Relationship Specialty Start Date End Date Gustavo Suarez [address] [place] [id number] PCP - General Internal Medicine 11/13/22
== END 2024-08-25 07:46 | disposition home or self-care (01) ==
LOC: HO.MAMMO 07:45
PROVIDERS: PCP Internal Medicine; Visit Provider Physician Assistant Medical
DX: Z12.31 Encounter for screening mammogram for malignant neoplasm of breast (principal)
CPT/HCPCS: 77063; 77067

== ENCOUNTER → 2024-08-25 08:15 | Outpatient (BNV) | payer MEDICARE, OTHER, SELFPAY | PROVIDERS: PCP Internal Medicine; Visit Provider Internal Medicine | DX: Z12.31 Encounter for screening mammogram for malignant neoplasm of breast (principal) | CPT/HCPCS: 77063; 77067 ==

== ENCOUNTER 2024-09-24 12:56 | Outpatient (AMB) | payer MEDICARE, OTHER, SELFPAY ==
--- OUTSIDE RECORDS SUMMARY | 2024-09-24 12:59 | XMS_ITS | Encounter Summary ---
Author Organization [facility] Address [address] [place] [id number] Care Team Providers Care Industrial Service Technician Name Role Phone No, Pcp (Do Not Change Name) Primary Care Provid er Unavailable Encounter Details Date Type Department Care Team (Late st Contact Info) Description 10/10/2023 Transcribed Orders CARE [facility] SCHEDULING [address] [place] [address] Referral, Self Social History Tobacco [...] Care Team (Late st Contact Info) Description 12/21/2024 1:00 PM EDT Office Visit [facility] [address] [address] Richard Lewis MD [address] [place] [address] documented as of this encounter Visit Diagnoses Not on filedocumented in this encounter Additional Health Concerns Assessment Noted Time PHQ-9 Depression Total Score: 0 09/24/19 24 9:25 AM EDT documented as of this encounter Care Teams Industrial Service Technician Relationship Specialty Start Date End Date No, Pcp (Do Not Change Name) PCP - General 07/19/24 documented as of this encounter
[2024-09-24 13:00] VITALS: BP 152/74; PULSE 72; RESP 14; TEMP 36.6; O2SAT 99; BMI 25.6
--- NOTE | 2024-09-24 13:00 | A.OFFPC_ITS ---
Vital Signs 09/24/24 13:00 Height 5 ft 0.25 in Weight 132 lb BMI 25.6 BP 152/74 H Respiration 14 Pulse 72 Pulse Source Pulse Oximeter Temp 97.8 F Temp Source Temporal Artery Scan Pulse Oximetry (%) 99 Oxygen Delivery Method Room Air Intake Visit Reasons: follow up Intake Note: Visit Reason: TCM Intake Note: Patient is here for hospital discharge follow up. Patient was discharged from [facility] Required: No Transitional Kindergarten Teacher: Not Required per policy Accompanied by: Self / Same As Patient Allergies penicillin G [Penicillin G] Allergy (Mild, Verified 09/24/24 13:21) RASH penicillin V Allergy (Unknown, Verified 09/24/24 13:21) Abdominal Pain adhesive Allergy (Verified 09/24/24 13:21) Blister mold Allergy (Verified 09/24/24 13:21) Headache Amvzuqy-KNE-EoB Reductase Inhibitor Allergy (Verified 09/24/24 13:21) Weakness codeine [Codeine] Adverse Reaction (Mild, Verified 09/24/24 13:21) SEVERE ABDOMINAL PAIN Medication List - Last Reconciled 09/24/24 by Ellie Kan PA-C albuterol sulfate 90 mcg/actuation 2 puffs inhalation Q4-6H PRN apixaban (Eliquis) 5 mg PO BID baclofen 20 mg PO TID coenzyme Q10 100 mg PO DAILY diazepam 5 mg PO TID PRN dicyclomine 10 mg PO QID epinephrine 0.3 mg (0.3 mL) IM Q10M PRN ergocalciferol (vitamin D2) 1,250 mcg PO Q2W estradiol 1 patch transdermal WE@0900 gabapentin 1,200 mg PO DAILY@1900 lamotrigine ER 400 mg PO DAILY miscellaneous medical supply Bed Assist Rail omega-3 fatty acids 1,000 mg PO DAILY omeprazole 20 mg PO BID [Portable Mobility Bed rail As directed] [rollator As directed] Tobacco use date assessed: 09/24/24 Fall risk assessment: 2 + Falls in past year Last assessed Fall Risk: 09/24/24 Dental Screening Dental Screen Date: 09/24/24 Did you have a dental visit in the last 12 months?: Yes Did you have a dental problem in the last 6 months where you did not have access to dental care?: No Was dental information given to patient?: Patient has dentist (partial dentures) HPI HPI Comments History of Present Illness Details Patient presents to the office for a TCM visit. 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 Patient reports she followed up with her neurologist yesterday at [facility] and they are going to be starting her on IVIG. She will be starting this with home infusions. She will keep us updated when she starts the IVIG at home. Hospital Course/Discharge Summary: Patient was initially admitted on 09/08/2024. Underwent chest x-ray and CT scan of abdomen/pelvis without contrast with concerns for renal stones that did not reveal any nephrolithiasis or any acute processes. The patient was given b aclofen, diazepam 15 mg and IV morphine and that helped the patient's pain. Patient also had to be straight cath and in 1 of the incidents per the patient she had 1.4 L of urine that was retained. After that her symptoms improved. On 09/09/2024 patient was successful to void on her own and she was back to her baseline urinary habits. She was instructed to follow-up with her neurologist along with her PCP. Discharged to/Current Location: Home Lives with: Alone Diagnosis: Stiff person syndrome exacerbation; acute urinary retention; chronic conditions that they manage were also atrial fibrillation, CAD, anxiety with depression, GERD and reported that she can continue her Eliquis, Ranexa, lamotrigine and omeprazole. Along with the rest of her medications. Procedures performed: Chest x-ray, CT scan of abdomen pelvis with IV contrast. Patient had straight catheterization on 2 occasions. New medications: Diazepam 5 mg 3 times a day, baclofen 20 mg every 4 hours Discontinued medications: None Change medications/dosing: Baclofen was changed from TID to QID. Pending labs: None Pending diagnostic test: None Any Follow-up Labs required? None Any Follow-up Diagnostic test required? None How are you feeling? Feeling better Are you in any pain or discomfort? Yes with her Chronic pain. Do you have any questions about your condition or discharge instructions? No. Were you able to get your medications filled? Yes. Do you have any questions about your medications? None at this time. Any referrals required? Not at this time. Were you able to schedule your follow-up appointment? Yes Patient If home health was ordered, have they contact you? Already in place through [facility]. Any outpatient services, if so, are you scheduled? No not indicated. Are there any additional resources like transportation you might need during her recovery? - VNA? Already in place, 1 comes every 3 months, [facility] comes every 3 months, [facility] 3 months. Patient's medications are bubble pack. She goes to [facility] pharmacy. She is able to handle her medications while in bubble Pack. - ALLIANCE MANAGER? Patient has a ALLIANCE MANAGER that comes in 3 days a week - Meals on wheels? Yes already in place Educational need/resources: None at this time. What support system do you have? Patient has a friend for her support system Social History - Lives alone with caregiver support, re ceiving assistance three days a week. - Patient has a primary caregiver for [facility] assistance. - Meals on Wheels provides nutritional s upport. - Medications are organized in [employer] pa cks to aid self-management. - Maintains a dietary regimen reliant on protein intake to manage weight. [facility] Medical History (Updated 09/24/24 @ 14:17 by Ellie Kan PA-C) Neurogenic bladder History of mammogram (~2022) Ataxia Coronary artery spasm Coronary artery anomaly Hair loss Hemorrhoids Diverticulosis Tubular adenoma Eczema Fibrocystic breast disease Herpes simplex Hypersomnia Witnessed apneic spells Arthritis Difficulty swallowing Weakness On anticoagulant therapy Lumbar spondylosis Spinal stenosis in cervical region Restless legs syndrome (RLS) Anemia Fatigue Cervical spondylosis Anxiety Bipolar disease, manic Occasional tremors Obstructive sleep apnea Insomnia GERD (gastroesophageal reflux disease) Cardiac microvascular disease TIA (transient ischemic attack) Atrial fibrillation Cardiomyopathy Surgical History H/O cervical discectomy History of partial hysterectomy History of tonsillectomy Hx of hand surgery History of radiofrequency ablation procedure for cardiac arrhythmia History of esophagogastroduodenoscopy (EGD) H/O colonoscopy (~04/24/20) H/O radiofrequency ablation (RFA) of nerve of lumbar spine Hx of cervical spine surgery Hx of shoulder surgery H/O: knee surgery Hx of cholecystectomy History of carpal tunnel release Hx of appendectomy Family History Father Dementia Cancer Mother Cancer COPD (chronic obstructive pulmonary disease) Multiple sclerosis Daughter Myasthenia Social History Household Members: Significant Other Housing: House Are you a primary home care scheduler to a significant other at home: No Do you presently have visiting nurse 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 1. Little interest or pleasure in doing things: nearly every day 2. Feeling down, depressed, or hopeless: more than half the days 3. Trouble falling or staying asleep, or sleeping too much: not at all 4. Feeling tired or having little energy: nearly every day 5. Poor appetite or overeating: nearly every day 6. Feeling bad about yourself - or that you are a failure or have let yourself or your family down: not at all 7. Trouble concentrating on things, such as reading the newspaper or watching television: nearly every day 8. Moving or speaking so slowly that other people could have noticed. Or the opposite - being so fidgety or restless that you have been moving around a lot more than usual: nearly every day 9. Thoughts that you would be better off or of hurting yourself in some way: several days Total score: 18 Depression Screening Interpretation: Positive Depression Screening Follow-up: Existing condition and In treatment Depression Screening Done: Yes 28587 - PHQ-9 Billing: Yes Source: Developed by Drs. Gustavo Russell, Raquel Ramírez, Crispin Null and colleagues, with an educational edilberto from [employer]. Thrive Questionnaire Date Thrive assessed: 09/24/24 I am a: Patient What is your living situation today?: I have a steady place to live Within the past 12 months, did the food you bought not last and you didn't have the money to get more?: Never true Within the past 12 months, did you worry whether your food would run out before you got money to buy more?: Never true Do you have trouble paying for medicines?: No Do you have trouble getting transportation to medical appointments?: No Do you have trouble paying your heating and electricity bill?: No Do you have trouble taking care of your child, family member or friend?: No Do you have trouble with day-to-day activities such as bathing, preparing meals, shopping, managing finances, etc.?: No Are you currently unemployed and looking for a job?: No Are you interested in more education?: No Please select the resources that you would like help with: None THRIVE Score: 0 AUDIT C Alcohol Use Questionnaire (AUDIT-C) 1. How often do you have a drink containing alcohol?: Never 3. How often do you have six or more drinks on one occasion?: Never Total Score: 0 Score Reviewed/Action Taken: Yes CARYN-7 AMB Questionnaire CARYN-7 Date CARYN - 7 assessed: 09/24/24 Feeling nervous, anxious, or on edge: 2 = More than half the days Not being able to stop or control worryin = Several days Worrying too much about different things: 2 = More than half the days Trouble relaxin = Several days Being so restless that it is hard to sit still: 0 = Not at all Becoming easily annoyed or irritable: 1 = Several days Feeling afraid as if something awful might happen: 1 = Several days Total CARYN-7 score (0-4 normal; 5-9 mild; 10-14 moderate; 15-21 severe): 8 Source: Developed by Drs. Gustavo Russell, Raquel Ramírez, Crispin Null and colleagues, with an educational edilberto from [employer]. CARYN-7 Assessment Billing CARYN-7 Assessment Tool: CARYN-7 Assessment 20337 Review of Systems Const Details: - General: Reports improvement in muscle spasms; ongoing muscle cramps. - Respiratory: Denies current breathing issues; previous episodic cramping across the diaphragm. - Gastrointestinal: Reports inconsistent bowel habits; manages symptoms with diet. - Genitourinary: Reports urinary retention episodes; variable urinary flow. - Musculoskeletal: Reports muscle spasms; chronic regimen includes physical therapy. Physical exam (Primary Care) Vital Signs: Last Vital Signs Temp 97.8 F 09/24/24 13:00 Pulse 72 09/24/24 13:00 Resp 14 09/24/24 13:00 BP 152/74 H 09/24/24 13:00 Pulse Ox 99 09/24/24 13:00 Oxygen Delivery Method Room Air 09/24/24 13:00 Vitals signs have been reviewed. Care Plan Goal for BP management: <140/90 BMI result Body Mass Index 25.6 BMI Assessment/Plan discussion: High BMI High, discussed plan: lifestyle, weight reduction, dietary, physical activity and alcohol moderation Tobacco/Smoking Status: Tobacco use Status Tobacco use date assessed 09/24/24 09/24/24 13:14 Patient Tobacco Use Status Former Tobacco user 09/24/24 13:14 PHQ-9: PHQ-9 Score PHQ-9: Total score 18 09/24/24 13:14 Depression Screening Interpretation: Positive Depression Screening Follow-up: Existing condition and In treatment Thrive Assessment: Date of Thrive Assessment Date Thrive assessed 09/24/24 09/24/24 13:14 Const Other: Appearance: Alert. Oriented X3. No acute distress. Head: Normal external exam. Normocephalic. Atraumatic. Eyes: Pupils are equal, round, and reactive to light. Extraocular movements intact. Conjunctiva and sclera normal. Eyelids normal. Throat: Pharynx normal. Uvula midline. Moist mucous membranes. Neck: Normal inspection. Neck supple. Full range of motion. Cardiovascular: Normal heart rate and rhythm. Respiratory: No respiratory distress. Painless inspiration. Back: Full range of motion noted. Skin: Skin warm and dry. Normal skin color. Normal skin turgor. No rashes/lesions/lacerations noted. Extremities: Extremities exhibit normal range of motion. Neuro: Oriented X 3. No motor deficit. No sensory deficit. Reflexes normal. Results Reviewed Results Reviewed: - Tests and Diagnostics: - Chest X-ray and abdominal/pelvic CT scan without contrast showing no renal stones. Coding Level of Care Code TCM High MDM <= 14 days Complex EM visit Add On G2211 Diagnoses Atrial fibrillation I48.91 Neurogenic bladder N31.9 Stiff person syndrome G25.82 Additional Codes PHQ-9 - 94687 - PHQ-9 Billing: Yes ([id number]) CARYN-7 Assessment Billing - CARYN-7 Assessment Tool: CARYN-7 Assessment 54442 ([id number]) Time Spent (min) 60 Assessment & Plan Assessment & Plan (1) Atrial fibrillation: Code(s): I48.91 - Unspecified atrial fibrillation Category: Medical Plan: Continuation of Eliquis while clarifying care management with the grey goods examiner is indicated. (2) Neurogenic bladder: Code(s): N31.9 - Neuromuscular dysfunction of bladder, unspecified Category: Medical Plan: Regular monitoring for urinary retention persists as urological consults are awaited. (3) Stiff person syndrome: Code(s): G25.82 - Stiff-man syndrome Category: Medical Plan: The patient continues with baclofen and diazepam regimen. IVIG therapy is also planned. Monitoring will be done with her neurologist to assess her condition. Plan Plan Patient was informed and verbally consented to the use of an ambient scribe for clinic note documentation during this visit. 1. Stiff Person Syndrome The patient continues with baclofen and diazepam regimen. IVIG therapy is also planned. Monitoring will be done with her neurologist to assess her condition. 2. Atrial Fibrillation Continuation of Eliquis while clarifying care management with the grey goods examiner is indicated. 3. Neurogenic Bladder Regular monitoring for urinary retention persists as urological consults are awaited. We discussed the preferred management of Stiff Person Syndrome, involving maintenance on baclofen and diazepam, with the initiation of IVIG therapy. I emphasized the significance of adhering to neurological follow-up to enable prec ise tailoring of treatment plans. We reviewed atrial fibrillation treatment continuity centered around Eliquis and agreed on maintaining transparent communication with her grey goods examiner. We acknowledged the challenges posed by her neurogenic bladder and outlined the plan to consult urology, noting her established relationship with her current provider. Follow-ups were ensured for all lines of care discussed, ensuring medications continue to be dispensed aptly with adjustments made in line with her evolving care needs. Medications: Changed From baclofen 20 mg PO TID 90 tabs 3RF muscle spasm To baclofen 20 mg PO Q4H 90 days 540 tabs 3RF muscle spasm Patient Instructions: - Continue taking baclofen and diazepam as prescribed. - Follow-up with your neurologist for IVIG therapy. - Ensure regular communication with your urologist for bladder management. - Maintain dietary regimen for weight and manage GERD. - Contact your grey goods examiner to review treatment for atrial fibrillation. - Report any changes in symptoms or new concerns immediately. - Maintain supplied medications through [facility].
== END 2024-09-24 14:03 | disposition home or self-care (01) ==
LOC: HO.HMCSH 12:56
PROVIDERS: PCP Internal Medicine; Visit Provider Physician Assistant Medical
DX: I48.91 Unspecified atrial fibrillation (principal); N31.9 Neuromuscular dysfunction of bladder, unspecified; G25.82 Stiff-man syndrome

== ENCOUNTER → 2024-09-24 12:56 | Outpatient (BNVA) | payer MEDICARE, OTHER, SELFPAY | PROVIDERS: PCP Internal Medicine; Visit Provider Physician Assistant Medical | DX: G25.82 Stiff-man syndrome (principal); I48.91 Unspecified atrial fibrillation; N31.9 Neuromuscular dysfunction of bladder, unspecified; Z79.01 Long term (current) use of anticoagulants; Z13.30 Encounter for screening examination for mental health and behavioral disorders, unspecified | CPT/HCPCS: 96127; 99212 ==

== ENCOUNTER 2024-09-28 13:52 | Outpatient (AMB) | payer MEDICARE, OTHER, SELFPAY ==
--- NOTE | 2024-09-28 14:08 | A.OFFVIS_ITS ---
Vital Signs 09/28/24 14:09 Height 5 ft 3 in Weight 128 lb 6 oz BMI 22.7 BP 112/60 Blood Pressure Location Rt brachial Position Sitting Pulse 78 Pulse Source Pulse Oximeter Pulse Oximetry (%) 99 Oxygen Delivery Method Room Air Intake Visit Reasons: dyspnea Allergies penicillin G [Penicillin G] Allergy (Mild, Verified 09/28/24 14:13) RASH penicillin V Allergy (Unknown, Verified 09/28/24 14:13) Abdominal Pain adhesive Allergy (Verified 09/28/24 14:13) Blister mold Allergy (Verified 09/28/24 14:13) Headache Kkkssze-BMZ-QmN Reductase Inhibitor Allergy (Verified 09/28/24 14:13) Weakness codeine [Codeine] Adverse Reaction (Mild, Verified 09/28/24 14:13) SEVERE ABDOMINAL PAIN HPI HPI dyspnea: Details: Ying is a pleasant 64 year old female, never smoker, with underlying Stiff Person Syndrome under the care of Dr. Lewis at [facility], chronic headaches, afib on Eliquis, TIA, cardiomyopathy, BHANU, Bipolar disorder, occasional tremors, RLS, and anemia. At the last visit, PFT suggestive of small airways disease and has been using albuterol MDI infrequently with good effect. She notes due to Stiff Person Syndrome she has had muscle spasms affecting her breathing on a few occasions as well as chest tightness in the projection of the diaphragm, which has responded well to muscle relaxers. Denies any triggers. She was recently evaluated at [facility] ED for dyspnea and chest tightness, thought to be an excerbation of SPS, treated with valium with resolution of symptoms. Upon discharge patient with increased dose of Baclofen now q4 hours in addition to valium QID PRN. At this time, she feels respiratory symptoms are relatively controlled. Today she presents for a routine visit. [facility] Medical History (Updated 09/28/24 @ 20:15 by Charmaine Jeter NP) Neurogenic bladder History of mammogram (~2022) Ataxia Coronary artery spasm Coronary artery anomaly Hair loss Hemorrhoids Diverticulosis Tubular adenoma Eczema Fibrocystic breast disease Herpes simplex Hypersomnia Witnessed apneic spells Arthritis Difficulty swallowing Weakness On anticoagulant therapy Lumbar spondylosis Spinal stenosis in cervical region Restless legs syndrome (RLS) Anemia Fatigue Cervical spondylosis Anxiety Bipolar disease, manic Occasional tremors Obstructive sleep apnea Insomnia GERD (gastroesophageal reflux disease) Cardiac microvascular disease TIA (transient ischemic attack) Atrial fibrillation Cardiomyopathy Surgical History H/O cervical discectomy History of partial hysterectomy History of tonsillectomy Hx of hand surgery History of radiofrequency ablation procedure for cardiac arrhythmia History of esophagogastroduodenoscopy (EGD) H/O colonoscopy (~04/24/20) H/O radiofrequency ablation (RFA) of nerve of lumbar spine Hx of cervical spine surgery Hx of shoulder surgery H/O: knee surgery Hx of cholecystectomy History of carpal tunnel release Hx of appendectomy Family History Father Dementia Cancer Mother Cancer COPD (chronic obstructive pulmonary disease) Multiple sclerosis Daughter Myasthenia Social History Household Members: Significant Other Housing: House Are you a primary point of care technician to a significant other at home: No Do you presently have visiting nurse 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, 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) Alcohol intake: current Alcohol intake frequency: does not drink Patient Tobacco Use Status: Former Tobacco user service: No Current occupational status: disabled Cognitive needs: Yes (cane ) Hearing needs: No Vision needs: Yes (rx glasses) Review of Systems Const Denies chills, Denies excessive sweating, Denies fever(s) and Denies night sweats Eyes Denies dry eyes, Denies irritation and Denies itchy eyes ENT Reports Normal hearing present, Denies nasal congestion, Denies nasal discharge, Denies post nasal drip and Denies sore throat Card Denies claudication, Denies leg edema, Reports dyspnea, Reports dyspnea on exertion and Denies paroxysmal nocturnal dyspnea Resp Denies chest congestion, Denies cough, Denies hemoptysis, Denies excessive phlegm production, Denies pain on inspiration, Denies pain with cough, Reports dyspnea, Reports dyspnea on exertion, Denies stridor and Denies wheezing Musc Reports muscle cramps and Reports muscle weakness Neuro Reports Normal hearing present Endo Denies excessive sweating Laron/Lymph Denies lymphadenopathy Aller/Immun Denies itchy eyes, Denies seasonal rhinorrhea and Denies wheezing Physical Exam Vital Signs: Last Vital Signs Pulse 78 09/28/24 14:09 BP 112/60 09/28/24 14:09 Pulse Ox 99 09/28/24 14:09 Oxygen Delivery Method Room Air 09/28/24 14:09 BMI result Body Mass Index 22.7 Const General: cooperative, healthy appearing, comfortable, no acute distress, well developed and alert Orientation/consciousness: patient oriented x3 Limitations: ambulation with cane HEENT Head: Yes normal to inspection, Yes normocephalic and Yes atraumatic Ears: hearing grossly normal bilaterally and external ears normal Eyes General: appearance normal, both eyes and all related structures Eyelids: Yes eyelids normal Sclerae: sclerae normal EOM: EOMs intact bilaterally Neck Neck: Yes normal visual inspection and Yes no lymphadenopathy Lymphatic: no lymphadenopathy noted Chest Chest palpation & inspection: normal inspection of the chest Resp Effort & Inspection: normal respiratory effort, able to speak in complete sentences, no audible wheezes, no cough, no stridor, not tachypneic, no tripod positioning and no use of accessory muscles Auscultation: clear to auscultation bilaterally Cardio Jugular venous distension: no JVD Rate: regular rate Rhythm: regular rhythm Skin Other: warm, dry General skin exam: no rashes or lesions noted Neuro General: patient oriented x3 Cranial nerves: Yes Normal hearing present Cognition (Neuro): normal cognition Gait exam (Neuro): Normal gait present Extrem General: Yes normal to inspection, Yes capillary refill normal, Yes no clubbing, cyanosis or edema and Yes no pedal edema Psych Appearance: grossly normal and well kempt Speech and movement: Normal speech and movement present and Clear speech present Affect: normal affect Attitude: cooperative Thought process: Normal thought process present Thought content: Normal thought content present Insight: Good insight present (Psych) Judgement: Good judgement present (Psych) Assessment & Plan Assessment & Plan (1) Stiff person syndrome: Code(s): G25.82 - Stiff-man syndrome Category: Medical (2) Dyspnea: Code(s): R06.00 - Dyspnea, unspecified Category: Medical Plan Prior PFT revealed no obstructive or restrictive ventilatory defect. Bronchodilator response is present in small to medium airways only. Lung volumes WNL. DLCO normal. Will repeat PFT in 05/2025. Reviewed chest CT report which revealed scattered tiny granulomas, will repeat in one year, 03/2025. otherwise unremarkable. Given she had some response to bronchodilator on PFT, encouraged continued use of albuterol MDI PRN. She has been using baclofen and valium for muscle spasms by neurologist, and has had minimal diaphragmatic spasms. At this time, she continues to report infrequent spasms resulting in dyspnea, occurring three times since having albuterol MDI which have alleviated some chest tightness/dyspnea in addition to muscle relaxers. She has been working with medical secretary receptionist to promote weight gain and physical therapy to reduce spasms/stiffness and improve mobility, both have been successful thus far. All questions were answered and patient is in agreement of plan. Will follow up in 3-6 months or sooner if needed. Orders: Orders CT chest wo IV con 6 Months G25.82 - Stiff-man syndrome, J84.10 - Pulmonary fibrosis, unspecified, R06.00 - Dyspnea, unspecified Coding Level of Care Code Est Pt Level 4 (85560) Diagnoses Stiff person syndrome G25.82 Dyspnea R06.00
[2024-09-28 14:09] VITALS: BP 112/60; PULSE 78; O2SAT 99; BMI 22.7
--- OUTSIDE RECORDS SUMMARY | 2024-09-28 14:10 | XMS_ITS | Encounter Summary ---
Author Organization [facility] Address [address] [place] [id number] Care Team Providers Care Ela Teacher Name Role Phone No, Pcp (Do Not Change Name) Primary Care Provid er Unavailable Encounter Details Date Type Department Care Team (Late st Contact Info) Description 10/10/2023 Transcribed Orders [facility] SCHEDULING [address] [place] [address] Referral, Self Social History Tobacco [...] Description 12/21/2024 1:00 PM EDT Office Visit [facility] [address] [address] Richard Lewis MD [address] [place] [address] documented as of this encounter Visit Diagnoses Not on filedocumented in this encounter Additional Health Concerns Assessment Noted Time PHQ-9 Depression Total Score: 0 09/24/19 24 9:25 AM EDT documented as of this encounter Care Teams Ela Teacher Relationship Specialty Start Date End Date No, Pcp (Do Not Change Name) PCP - General 07/19/24 documented as of this encounter
== END 2024-09-28 14:42 | disposition home or self-care (01) ==
LOC: HO.HPSW 13:54
PROVIDERS: PCP Internal Medicine; Visit Provider Nurse Practitioner Family
DX: G25.82 Stiff-man syndrome (principal); R06.00 Dyspnea, unspecified
CPT/HCPCS: 99214

== ENCOUNTER → 2024-09-28 13:52 | Outpatient (BNVA) | payer OTHER, MEDICARE, SELFPAY | PROVIDERS: PCP Internal Medicine; Visit Provider Nurse Practitioner Family | DX: G25.82 Stiff-man syndrome (principal); R06.00 Dyspnea, unspecified; J84.10 Pulmonary fibrosis, unspecified | CPT/HCPCS: 99212 ==

== ENCOUNTER 2024-11-09 10:47 | Outpatient (AMB) | payer OTHER, MEDICARE, SELFPAY ==
--- NOTE | 2024-11-09 10:52 | A.OFFPC_ITS ---
Vital Signs 11/09/24 10:53 Height 5 ft 0.25 in Weight 131 lb BMI 25.4 BP 127/66 Respiration 14 Pulse 80 Pulse Source Pulse Oximeter Temp 98.6 F Temp Source Temporal Artery Scan Pulse Oximetry (%) 95 Oxygen Delivery Method Room Air Intake Visit Reasons: follow up Right Of Way Appraiser Required: No Accompanied by: Self / Same As Patient Allergies house dust Allergy (Mild, Verified 11/09/24 10:58) Anaphylaxis penicillin G (Penicillin G) Allergy (Mild, Verified 11/09/24 10:53) RASH penicillin V Allergy (Unknown, Verified 11/09/24 10:53) Abdominal Pain adhesive Allergy (Verified 11/09/24 10:53) Blister mold Allergy (Verified 11/09/24 10:53) Headache Zldjqmn-DZC-DdK Reductase Inhibitor Allergy (Verified 11/09/24 10:53) Weakness codeine (Codeine) Adverse Reaction (Mild, Verified 11/09/24 10:53) SEVERE ABDOMINAL PAIN Tobacco use date assessed: 11/09/24 Dental Screening Dental Screen Date: 09/24/24 [facility] Medical History Intermittent palpitations Neurogenic bladder History of mammogram (~2022) Ataxia Coronary artery spasm Coronary artery anomaly Hair loss Hemorrhoids Diverticulosis Tubular adenoma Eczema Fibrocystic breast disease Herpes simplex Hypersomnia Witnessed apneic spells Arthritis Difficulty swallowing Weakness On anticoagulant therapy Lumbar spondylosis Spinal stenosis in cervical region Restless legs syndrome (RLS) Anemia Fatigue Cervical spondylosis Anxiety Bipolar disease, manic Occasional tremors Obstructive sleep apnea Insomnia GERD (gastroesophageal reflux disease) Cardiac microvascular disease TIA (transient ischemic attack) Atrial fibrillation Cardiomyopathy Surgical History H/O cervical discectomy History of partial hysterectomy History of tonsillectomy Hx of hand surgery History of radiofrequency ablation procedure for cardiac arrhythmia History of esophagogastroduodenoscopy (EGD) H/O colonoscopy (~10/05/20) H/O radiofrequency ablation (RFA) of nerve of lumbar spine Hx of cervical spine surgery Hx of shoulder surgery H/O: knee surgery Hx of cholecystectomy History of carpal tunnel release Hx of appendectomy Family History Father Dementia Cancer Mother Cancer COPD (chronic obstructive pulmonary disease) Multiple sclerosis Daughter Myasthenia Social History Household Members: Significant Other Housing: House Are you a primary career representative to a significant other at home: No Do you presently have visiting nurse 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, HEAD SOFT SUGAR OPERATOR) Alcohol intake: current Alcohol intake frequency: does not drink Patient Tobacco Use Status: Former Tobacco user service: No Current occupational status: disabled Cognitive needs: Yes (cane ) Hearing needs: No Vision needs: Yes (rx glasses) Questionnaire PHQ-9 Over the last 2 weeks, how often have you been bothered by any of the following problems? 1. Little interest or pleasure in doing things: nearly every day 2. Feeling down, depressed, or hopeless: more than half the days 3. Trouble falling or staying asleep, or sleeping too much: not at all 4. Feeling tired or having little energy: nearly every day 5. Poor appetite or overeating: nearly every day 6. Feeling bad about yourself - or that you are a failure or have let yourself or your family down: not at all 7. Trouble concentrating on things, such as reading the newspaper or watching television: nearly every day 8. Moving or speaking so slowly that other people could have noticed. Or the opposite - being so fidgety or restless that you have been moving around a lot more than usual: nearly every day 9. Thoughts that you would be better off or of hurting yourself in some way: several days Total score: 18 Depression Screening Interpretation: Positive Depression Screening Follow-up: Existing condition and In treatment Depression Screening Done: Yes 33202 - PHQ-9 Billing: Yes Source: Developed by Drs. Gustavo Russell, Raquel Ramírez, Crispin Null and colleagues, with an educational edilberto from [employer]. Thrive Questionnaire Date Thrive assessed: 09/24/24 I am a: Patient What is your living situation today?: I have a steady place to live Within the past 12 months, did the food you bought not last and you didn't have the money to get more?: Never true Within the past 12 months, did you worry whether your food would run out before you got money to buy more?: Never true Do you have trouble paying for medicines?: No Do you have trouble getting transportation to medical appointments?: No Do you have trouble paying your heating and electricity bill?: No Do you have trouble taking care of your child, family member or friend?: No Do you have trouble with day-to-day activities such as bathing, preparing meals, shopping, managing finances, etc.?: No Are you currently unemployed and looking for a job?: No Are you interested in more education?: No Please select the resources that you would like help with: None THRIVE Score: 0 AUDIT C Alcohol Use Questionnaire (AUDIT-C) 1. How often do you have a drink containing alcohol?: Never 3. How often do you have six or more drinks on one occasion?: Never Total Score: 0 Score Reviewed/Action Taken: Yes CARYN-7 AMB Questionnaire CARYN-7 Date CARYN - 7 assessed: 09/24/24 Feeling nervous, anxious, or on edge: 2 = More than half the days Not being able to stop or control worryin = Several days Worrying too much about different things: 2 = More than half the days Trouble relaxin = Several days Being so restless that it is hard to sit still: 0 = Not at all Becoming easily annoyed or irritable: 1 = Several days Feeling afraid as if something awful might happen: 1 = Several days Total CARYN-7 score (0-4 normal; 5-9 mild; 10-14 moderate; 15-21 severe): 8 Source: Developed by Drs. Gustavo Russell, Raquel Ramírez, Crispin Null and colleagues, with an educational edilberto from [employer]. CARYN-7 Assessment Billing CARYN-7 Assessment Tool: CARYN-7 Assessment 86180 Physical exam (Primary Care) Vital Signs: Last Vital Signs Temp 98.6 F 11/09/24 10:53 Pulse 80 11/09/24 10:53 Resp 14 11/09/24 10:53 BP 127/66 11/09/24 10:53 Pulse Ox 95 11/09/24 10:53 Oxygen Delivery Method Room Air 11/09/24 10:53 BMI result Body Mass Index 25.4 Tobacco/Smoking Status: Tobacco use Status Tobacco use date assessed 11/09/24 11/09/24 11:00 Patient Tobacco Use Status Former Tobacco user 11/09/24 11:00 PHQ-9: PHQ-9 Score PHQ-9: Total score 18 11/09/24 11:00 Depression Screening Interpretation: Positive Depression Screening Follow-up: Existing condition and In treatment Thrive Assessment: Date of Thrive Assessment Date Thrive assessed 09/24/24 11/09/24 11:00 Coding Level of Care Code Est Pt Level 4 (50645) Complex EM visit Add On G2211 Diagnoses 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 Richard Lewis MD at [phone] is taking care of her. Pt wanted a note carrying the diagnosis in the medical record. Request obliged. She would like me to contact the provider for more information. Call for the specialist made. (2) Atrial fibrillation: Code(s): I48.91 - Unspecified atrial fibrillation Category: Medical Plan: Patient would like to get a new communication manager. She has an appt in February. She is requesting an earlier appt. A request for an earlier appt will be made. Plan Patient wanted a referral for a hand surgeon, Dr Wise at [phone]. She wants evaluation for her swollen fingers. History of Present Illness - The patient is a 64-year-old female presenting with multiple health concerns including Stiff Person Syndrome, Atrial Fibrillation, and arthritis-related hand pain. 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 - The patient has a history of Atrial Fibrillation and is currently on Eliquis. She reports experiencing extra beats and has had abnormal stress tests. - The patient has experienced four Transient Ischemic Attacks (TIAs) and expresses concern about microvascular issues. - The patient has a history of Carpal Tunnel Syndrome and has undergone surgeries. She reports severe pain and crystallization in her fingers, impacting dexterity. - The patient reports arthritis in her hands, with a history of tendon surgery and ongoing monitoring by her hand doctor. - The patient has experienced bladder retention, requiring emergency intervention, and expresses concern about the management of her condition in emergency settings. Social History Review of Systems - Neurological: Reports difficulty in breathing and muscle-related issues associated with Stiff Person Syndrome. - Cardiovascular: Reports Atrial Fibrillation and extra beats. Denies chest pain. - Musculoskeletal: Reports severe pain and crystallization in fingers, impacting dexterity. Reports arthritis in hands. - Genitourinary: Reports bladder retention requiring emergency intervention. Physical Exam General: Cooperative and healthy appearing Nutritional Appearance: Well nourished Orientation/consciousness: Patient oriented x3 Limitations: No limitations Head: Normal to inspection General: Appearance normal, both eyes and all related structures Neck: Normal visual inspection Chest: Normal palpation of entire chest wall Respiratory: Patient reports an incident where they couldn't breathe, potentially related to muscle issues. ormal respiratory effort Neurology: Patient oriented x3. Reports having been diagnosed with Stiff Person Syndrome (SPS) and has experienced four TIAs. Results Plan 1. Stiff Person Syndrome (Sps) - Plan to contact the emergency room to establish a protocol for managing SPS- related emergencies. 2. Atrial Fibrillation (Afib) - Continue Eliquis for anticoagulation. Consider earlier cardiology appointment due to concerns about microvascular issues and abnormal stress tests. 3. Carpal Tunnel Syndrome - Referral to Dr. Kelly for evaluation and management of hand pain and crystallization. 4. Arthritis - Continue monitoring by hand specialist for arthritis management. 5. Bladder Retention - Establish emergency protocol for bladder retention management in case of future episodes. Discussion Notes I discussed with the patient the need to establish a protocol with the emergency room for managing Stiff Person Syndrome-related emergencies. We also talked about continuing Eliquis for Atrial Fibrillation and the possibility of an [facility] cardiology appointment. A referral to Dr. Kelly for hand pain management was agreed upon, and we discussed the importance of monitoring arthritis with a specialist. Additionally, we addressed the need for an emergency protocol for bladder retention. Patient Instructions - Continue taking Eliquis as prescribed. - Follow up with Dr. Kelly for hand pain and arthritis management. - Contact the emergency room if experiencing severe symptoms related to Stiff Person Syndrome or bladder retention.
[2024-11-09 10:53] VITALS: BP 127/66; PULSE 80; RESP 14; TEMP 37; O2SAT 95; BMI 25.4
--- OUTSIDE RECORDS SUMMARY | 2024-11-09 11:49 | XMS_ITS | Referral Summary ---
Author Organization [facility] Address [address] [place] [address] Care Team Providers Care Geophysical Prospecting Permit Agent Name Role Phone Gustavo Suarez Primary Care [...] of Treatment Not on file Insurance [facility] * Guarantor: DANIELLE NUGENT Account Type Relation to Patient Date of Phone Billing Address Personal/Family 1960 Care Teams Geophysical Prospecting Permit Agent Relationship Specialty Start Date End Date Gustavo Suarez [address] [place] [address] [place] [address] PCP - General Internal Medicine 11/13/22
--- OUTSIDE RECORDS SUMMARY | 2024-11-09 11:49 | XMS_ITS | Clinical Summary ---
Author Organization [facility] Address [address] [address] Phone Care Team Providers Care Blast Hole Driller Name Role Phone Clarence Leiva MD Primary Care Provider [phone] Allergies Active Allergy Reactions Criticality Noted Date [...] (six) hours if needed for wheezing. Active gabapentin (NEURONTIN) 600 mg tablet Take [...] a day. 60 each 11 08/02/2024 Active ranolazine (Ranexa) 500 mg 12 hr tablet Take 1 tablet (500 mg total) by mouth 2 (two) times a day. 180 tablet 3 09/29/2024 Active Active Problems Problem Noted Date Diagnosed Date PVC's (premature ventricular contractions) 07/27 CAD (coronary artery disease) 06/09/2024 Non-ST elevation PA (NSTEMI) ([facility] V24, [facility]/ [facility] V28) 06/09/2024 Dizziness 04/14/2024 Assessment & [...] this time she is working with a building illuminating engineer and will continue to work on dietary adjustments, alternative therapies may be readdressed at her next visit. I have reviewed with the patient the importance of a heart healthy lifestyle which includes eating a low-fat low-salt diet, getting regular exercise, maintaining a healthy weight, not smoking, and following up with routine medical care. PAF (paroxysmal atrial fibri llation) ([facility] V24, [facility] V28) 03/10/2024 Assessment & Plan (04/14/2024 4:08 [...] Encounters Date Type Department Care Team Description 09/29/2024 Telephone [facility] [address] [place] [address] Ziggy Ventura MD ranolazine (Ranexa) 500 mg 12 hr tablet . (ranolazine (Ranexa) 500 mg 12 hr tablet . ) 08/13/2024 1:30 PM EDT Office Visit [facility] [address] [place] [address] Ziggy Ventura MD Paroxysmal A-fib (CMS/HCC V24, CMS/HCC V28) from Last 3 Months Surgical History Surgery Date Site/Laterality Comments OTHER SURGICAL HISTORY PROCEDURE:pvc abalation TOTAL KNEE ARTHROPLASTY Right PROCEDURE:REPLACEMENT TOTAL KNEE BUNIONECTOMY PROCEDURE:BUNIONECTOMY DISC REMOVAL PROCEDURE:DISC REMOVAL SHOULDER SURGERY PROCEDURE:SHOULDER SURGERY OTHER SURGICAL HISTORY PROCEDURE:thumb surgery APPENDECTOMY PROCEDURE:APPENDECTOMY TONSILLECTOMY PROCEDURE:TONSILLECTOMY Medical History Medical History Date Comments Hypertension DX:Hypertension A-fib (CMS/HCC V24, CMS/HCC V28) DX:A-fib ([facility]) Cardiac microvascular disease DX :Cardiac microvascular disease [...] 78 08/13/2024 2:25 PM EDT Temperature 36.7 C (98 F) 04/06/2024 8:30 AM EST Respiratory Rate 12 [...] Zoster Vaccines (2 of 2) 02/02/2018 12/08/2017 Cholesterol Screening (Lipid Panel) 04/12/2022 Colorectal Cancer Screening: Colonoscopy 04/12/2022 HIV Screening 04/12/2022 Hepatitis C Screening 04/12/2022 Medicare Annual Wellness Visit 04/12/2022 Social Influencers of Health Screening 04/12/2022 COVID-19 Vaccine (3 - 2023-2 5 season) 2024 09/14/2021, 12/13/2020 Influenza Vaccine (#1) 2025 03/12/2016 Depression Screening 01/26/2025 01/27/2024 Hypertension/CHF/CAD Annual BMP Blood Test 04/05/2025 04/05/2024 RSV Immunization Adult Patients (1 - 1-dose 75+ series) 01/09/2035 HIB Vaccines Aged Out No longer eligi [...] Procedure Name Priority Date/Time Associated Diagnosis Comments COMPREHENSIVE METABOLIC PANEL STAT 04/05/2024 2:46 PM EST from Last 3 Months or Most Recently Relevant to Health Maintenance Results * (ABNORMAL) Comprehensive metabolic panel (04/05/2024 2:46 PM EST) Sodium 145 133 - 145 mmol/L LAB CHEMISTRY METHOD 04/05/2024 3:28 PM [facility] Potassium 3.8 3.5 - 5.5 mmol/L LAB CHEMISTRY METHOD 04/05/2024 3:28 PM [facility] Chloride 111(H) 96 - 110 mmol/L LAB CHEMISTRY METHOD 04/05/2024 3:28 PM [facility] CO2 26 21 - 32 mmol/L LAB CHEMISTRY METHOD 04/05/2024 3:28 PM [facility] Anion Gap 8 3 - 11 LAB CHEMISTRY METHOD 04/05/2024 3:28 PM [facility] Glucose 84 70 - 100 mg/dL LAB CHEMISTRY METHOD 04/05/2024 3:28 PM [facility] BUN 9 5 - 25 mg/dL LAB CHEMISTRY METHOD 04/05/2024 3:28 PM [facility] Creatinine 0.63 0.50 - 1.10 mg/dL LAB CHEMISTRY METHOD 04/05/2024 3:28 PM [facility] eGFR 99 >=60 mL/min/1. 73m2 LAB CHEMISTRY METHOD 04/05/2024 3:28 PM [facility] Comment:Calculation based on the Chronic Kidney Disease Epidemiology Collaboration (CKD-EPI) equation refit without adjustment for race. BUN/Creatinine Ratio 14.3 LAB CHEMISTRY METHOD 04/05/2024 3:28 PM [facility] Calcium 9.5 8.5 - 10.5 mg/dL LAB CHEMISTRY METHOD 04/05/2024 3:28 PM [facility] AST (SGOT) 24 10 - 42 unit/L LAB CHEMISTRY METHOD 04/05/2024 3:28 PM [facility] ALT (SGPT) 19 10 - 60 unit/L LAB CHEMISTRY METHOD 04/05/2024 3:28 PM [facility] Alkaline Phosphatase 65 42 - 121 unit/L LAB CHEMISTRY METHOD 04/05/2024 3:28 PM [facility] Total Protein 6.6 6.0 - 8.0 g/dL LAB CHEMISTRY METHOD 04/05/2024 3:28 PM [facility] Albumin 3.7 3.2 - 5.0 g/dL LAB CHEMISTRY METHOD 04/05/2024 3:28 PM [facility] Total Bilirubin 0.6 0.0 - 1.4 mg/dL LAB CHEMISTRY METHOD 04/05/2024 3:28 PM [facility] Blood Venous blood specimen / Unknown Venipuncture / Unknown 04/05/2024 2:46 PM EST 04/05/2024 2:59 PM EST us Enrique Moyer MD LAB BLOOD ORDERABLES Final Result [facility] [address] [place] [address], from Last 3 Months or Most Recently Relevant to Health Maintenance Insurance [employer] MEDICARE ADVANTAGE COUNTS INCLUDE 234 BEDS AT THE [facility] Advance Directives Documents on File Type Date Recorded Patient Drum Straightener Expl anation Health Care Decision (hx) 02/15/2022 AD SPAULDING DIRECTIVE Health Care Decision (hx) 02/15/2022 AD SPAULDING DIRECTIVE Health Care Decision (hx) 02/15/2022 AD SPAULDING DIRECTIVE Care Teams Blast Hole Driller Relationship Specialty Start Date End Date Clarence Leiva MD [facility] [address] [place] [address] [address] [place] [address] PCP - General Internal Medicine 08/02/24
--- OUTSIDE RECORDS SUMMARY | 2024-11-09 11:49 | XMS_ITS | Clinical Summary ---
Author Organization [facility] Address [address] [address] Phone Care Team Providers Care Security Engineer Name Role Phone Gustavo Suarez DO Primary Care Provider [phone] Allergies Active Allergy Reactions Criticality Noted Date [...] formulations. However, I do believe that her senior water/wastewater engineer should weigh in on this as well. Therefore, I will send a copy of today's note. Her current dose of estradiol is 0 0.075 mg per 24 hours changed weekly. I cannot find in the chart where her previous dose was but according to the notes it was decreased to this current dose. If her senior water/wastewater engineer is in agreement, she will call when [...] Cancer Screening: Sigmoidoscopy 01/09/2009 Influenza Vaccine (#1) 2025 Hepatitis B Vaccine Aged Out No longe r eligible based on patient's age to complete this topic Insurance A[employer]na MCR Adv PPO ([id number]) ) [facility] Open Access ([phone]) Care Teams Security Engineer Relationship Specialty Start Date End Date Gustavo Suarez DO [address] [place] [address] PCP - General 05/15/20
--- OUTSIDE RECORDS SUMMARY | 2024-11-09 11:49 | XMS_ITS | Clinical Summary ---
Author Organization [facility] Address [address] [place] [address] Care Team Providers Care Bullet Swaging Machine Operator Name Role Phone Gustavo Suarez DO [...] 5 12/01/2023 Active ergocalciferol (VITAMIN D2) capsule 54020 units Take 1 capsule (50,000 Units total) [...] 89 08/08/2023 8:07 AM EDT Temperature 35.9 C (96.6 F) 10/03/2021 8:16 AM EDT Respiratory Rate 16 10/03/2021 8:16 AM EDT [...] (1 of 2) 01/09/2010 Influenza Vaccine (#1) 2025 Pneumococcal Vaccine (1 of 1 - PCV) [...] age to complete this topic Care Teams Bullet Swaging Machine Operator Relationship Specialty Start Date End Date Gustavo Suarez DO [address] [place] [phone] PCP - General Internal Medicine 06/23/18
--- OUTSIDE RECORDS SUMMARY | 2024-11-09 11:49 | XMS_ITS | Encounter Summary ---
Author Organization [facility] Address [address] [place] [address] Care Team Providers Care Agile Coach Name Role Phone No, Pcp (Do Not Change Name) Primary Care Provid er Unavailable Encounter Details Date Type Department Care Team (Late st Contact Info) Description 10/10/2023 Transcribed Orders [facility] SCHEDULING [address] [place] [address] Referral, Self Social History Tobacco [...] Description 12/21/2024 1:00 PM EDT Office Visit [facility] [address] [address] Richard Lewis MD [address] [place] [address] documented as of this encounter Visit Diagnoses Not on filedocumented in this encounter Additional Health Concerns Assessment Noted Time PHQ-9 Depression Total Score: 0 09/24/19 24 9:25 AM EDT documented as of this encounter Care Teams Agile Coach Relationship Specialty Start Date End Date No, Pcp (Do Not Change Name) PCP - General 07/19/24 documented as of this encounter
--- OUTSIDE RECORDS SUMMARY | 2024-11-09 11:50 | XMS_ITS | Data Portability ---
Author Organization [place] [facility] Address [address] [place] [address] Assessment No assessment recorded. Plan of Treatment [...] of nose, middle ear and accessory sinuses 955099750 Active 2019 Benign neoplasm of middle ear, nasal cavity and accessory sinuses; Note: Date Diagnosed : 04/07/2020 1:44 PM (D14.0) Not Available [facility] 02:19:03 Ataxia 41658449 Active 2019 Ataxia, unspecifi ed; Note: Date Diagnosed : 04/07/2020 1:44 PM (R27.0) Not Available [facility] 02:18:41 Dysphagia 77111218 Active 2023 GISELA PRUETT MD [address] [facility],[place] [address], [place], [address] , [facility] - [facility] 10:19:25 Gastroeso phageal reflux disease without esophagit is 180982861 Active 2023 GISELA PRUETT MD [address] [facility],[place] [address], [place], [address] , [facility] - [facility] 10:19:44 Chronic hoarsenes s 59131036725 05 Active 2023 GISELA PRUETT MD [address] [facility],[place] [address], [place], [address] , [facility] - [facility] [place] 10:20:46 Problem Notes None recorded. Procedures Surgical History Date Name Laterality Status Provider Name and Address Organization Details Recorded Time 11/11/2023 FFL_RE completed GISELA PRUETT MD [address] [facility],[place] [address], [place], [address], [facility] - [facility] 11/11/2023 10:26:08 Imaging Results None recorded. Procedure Notes None recorded. Medical Equipment None Reported. Allergies Allergen ID Allergen Name Allergen Category Reaction Reaction Severity Criticality Documentation Date Start Date Code Code System Note Provider Name and Address Organization Details Recorded Time 00334 Product containin g penicilli n (product) medicatio n hives Not available Not available 09/16/2023 14199 8001 SNOMED React ion: skin rashe s, hives ;; Not Available [facility] 00:48:35 39208 codeine medicatio n nausea Not available Not available 09/16/2023 2670 RxNorm React ion: Stoma ch cramp s; Not Available [facility] 00:48:40 57908 acetamino phen / oxycodone medicatio n nausea Not available Not available 09/16/2023 16159 3 RxNorm React ion: nause a;; Not Available [facility] 4 00:48:40 Medications Name Sig Start Date [...] 20 mg tablet active Medicatio n ID: [id number] Br and Name: atorvasta tin Send Method: [...] release 24 hr active Medicatio n ID: [id number] Br and Name: isosorbid e mononitra te [...] 300 mg capsule active Medicatio n ID: [id number] and Name: gabapenti n Send Method: E-Prescri [...] 25 mg tablet active Medicatio n ID: [id number] Br and Name: metoprolo l tartrate Send [...] Updated DateTime 11/11/2023 160.02 cm 21.8 kg/m2 97618.86 g Delores Mejía [place] - [facility] 11/11/2023 09:58:27 Social History None recorded. Functional [...] Note 6977 GISELA PRUETT MD [facility] [address] [address] 11/11/2023 09:08:06 11/11/2023 10:28:26 Dysphagia 49372896 R13.10 see below Gastroesop hageal reflux disease without esophagitis 320683221 K21.9 continue omeprazole per prescribin g provider Chronic hoarseness 91233 82054 105 R49.0 Her right vocal cord is sluggish. No glottic gap. Likely recovering after ACDF. MBS showed a safe swallow. I suspect her neuromuscu lar disorder may contribute to her dysphagia as well and I recommend she keep f/u with her neurologis ts at [facility]. No ENT interventi on needed. No tumors on exam. I gave reassuranc e. Health Concerns Section Related Observation LastModified by Organization Detai ls LastModified Time None Recorded Concern Status LastModified by Organization Details LastModified Time None Recorded Advance Directives Directive None Recorded Payers Insurance Date Sequence Insurance Name Policy Number Policy Viveros Covered Member ID Viveros Member ID Guarantor Name 11/11/2023 1 [employer] (MEDICARE REPLACEMENT/ ADVANTAGE - PPO) [id number] Elke Ying A Bertin [id number] Ying [place] 11/11/2023 2 [employer] - ALLEGIANCE BENEFIT PLAN MANAGEMENT (PPO) Ying Bedoya Bertin [id number] Ying [place] Notes Date Note Type Note [...] swallowing. She is being worked up at [facility] for a neurologic disorder. She has muscle cramping and she can't use her left arm well. On omeprazole for GERD. Hx of ACDF. She has had some voice trouble since with difficulty projecting. GISELA PRUETT MD [address] [place] [address], [place], [address], [facility] - [facility] 11/11/2023 10:28:19 OBGyn Episode No OBEpisode recorded.
--- OUTSIDE RECORDS SUMMARY | 2024-11-09 11:50 | XMS_ITS | Continuity of Care Document ---
Author Organization [facility] [address] [place] [address] Phone [phone] Care Team Providers Care Commercial Light Fixture Assembler Name Role Phone Gustavo Suarez M.D. Care Team Information Recei yadira [phone] Clarence Leiva MD Care Team Information R eceiver [phone] Problems Active Problems Provider Date Multinodular goiter [...] Social History Type Date Description Comments Sex Female Sex Unknown Tobacco Use Start: Unknown End: [...] Apply 1 Patch Once A Week Unknown Vgacercm63ua Tablets Take 1 Tablet By Mouth Twice Daily as Needed For Muscle Spasm Krystina Mendez NP Gwriaczvq6uu Tablets Take half hs Unknow n Vitamin D (Ergocalciferol)1.25mg (60645 Ut) Capsules Take 1 Capsule By Mouth every other week Unknown Rsvtntveza39np Capsules DR Take 1 Capsule By Mouth Every Day 30 Minutes Before Breakfast Gustavo Suarez M.D. Xyppuheemv475ev Tablets 300mg am, 300mg 2pm, 1200mg 8pm Unknown Obwzmpx3gb Tablets Take 1 Tablet By Mouth Twice Daily Linda Astudillo MD Lamotrigine [id number] Tablets ER 24HR Take 2 Tablets By Mouth Every Day Unknown Methylphenidate NAK88pi Tablets Take 1 Tablet By Mouth Three Times Daily prn Unknown Valacyclovir JRB102cj Tablets Unknown Tizanidine HCL2mg Tablets Unknown Dicyclomine BQT89ad Capsules Take 1 Capsule By Mouth Four [...] Am 08/09/2024 [facility] Cortisol - Am 16.7 g/dL 6.2-19. 4 TSH Rfx on Abnormal to [...] 77 TSH With Reflex To FT4 12/12/2022 [facility] TSH With Reflex To FT4 0.33 uIU/mL Low (0.4-4. 2) Anti Thyroid Peroxidase AB 12/12/2022 [facility] Anti Thyroid Peroxidase AB <3.0 IU/mL (<5.6) 1 25Oh Vitamin D 12/12/2022 [facility] 25Oh Vitamin D 50.0 NG/ML (20-50) Free T4 12/12/2022 [facility] Free T4 0.90 ng/dL (0.70-1 .80) 1 Antibody measurement represents one parameter in a multicriteria diagnostic process. Correlate results with clinical presentation. This test was performed on the 8thBridge immunoassay system. Medical Devices Description No Information Available Encounters Type Date Location Provider Dx Diagnosis Office Visit 07/30/2024 1:15p Main Office [facility] I48.91 Unspecified a trial fibrillation E04.2 Nontoxic multinodula r goiter E05.90 Thyrotoxicosis, unsp without thyrotoxic crisis or storm Assessments Date Code Description Provider 07/30/2024 I48.91 Atrial fibrillation VON [facility] 07/30/2024 E04.2 Multinodular goiter [facility]edo 07/30/2024 E05.90 Thyrotoxicosis, unspecified without thyrotoxic crisis or storm V[facility] Springer Plan of Treatment No Information Available Functional Status Description No Information Available Mental Status Description No Information Available Referrals Description No Information Available
== END 2024-11-09 11:57 | disposition home or self-care (01) ==
LOC: HO.HMCSH 10:47
PROVIDERS: PCP Physician Assistant Medical; Visit Provider Internal Medicine
DX: G25.82 Stiff-man syndrome (principal); I48.91 Unspecified atrial fibrillation

== ENCOUNTER → 2024-11-09 10:47 | Outpatient (BNVA) | payer OTHER, MEDICARE, SELFPAY | PROVIDERS: PCP Physician Assistant Medical; Visit Provider Internal Medicine | DX: G25.82 Stiff-man syndrome (principal); I48.91 Unspecified atrial fibrillation; G56.00 Carpal tunnel syndrome, unspecified upper limb; R33.9 Retention of urine, unspecified | CPT/HCPCS: 96127 ==

== ENCOUNTER 2024-11-19 09:10 | Outpatient (AMB) | payer MEDICARE, OTHER, MEDICAID, SELFPAY ==
--- NOTE | 2024-11-19 09:17 | MHC.OFFVIS ---
Vital Signs 11/19/24 09:18 Height 5 ft 0.25 in Weight 130 lb 1.164 oz BMI 25.2 BP 108/68 Blood Pressure Location Lt brachial Position Sitting Pulse 75 Intake Visit Reasons: new patient dx afib Intake Note: New patient transfering from [facility]) dx afib c/o going in and out of afib and sob Household Appliance Assembler Required: No Allergies house dust Allergy (Mild, Verified 11/09/24 10:58) Anaphylaxis penicillin G (Penicillin G) Allergy (Mild, Verified 11/09/24 10:53) RASH penicillin V Allergy (Unknown, Verified 11/09/24 10:53) Abdominal Pain adhesive Allergy (Verified 11/09/24 10:53) Blister mold Allergy (Verified 11/09/24 10:53) Headache [id number] Reductase Inhibitor Allergy (Verified 11/09/24 10:53) Weakness codeine (Codeine) Adverse Reaction (Mild, Verified 11/09/24 10:53) SEVERE ABDOMINAL PAIN Medication List - Last Reconciled 11/19/24 by Lasha Young MD apixaban (Eliquis) 5 mg PO BID baclofen 20 mg PO Q4H 90 days diazepam 5 mg PO TID PRN diazepam (Valtoco) mg intranasal dicyclomine 10 mg PO QID epinephrine 0.3 mg (0.3 mL) IM Q10M PRN ergocalciferol (vitamin D2) 1,250 mcg PO Q2W estradiol 1 patch transdermal WE@0900 gabapentin 1,200 mg PO DAILY@1900 immune globul G-gly-IgA avg 46 5 gram/50 mL (10 %) (Gamunex-C) mL IV lamotrigine ER 400 mg PO DAILY miscellaneous medical supply Bed Assist Rail omeprazole 20 mg PO BID 90 days [Portable Mobility Bed rail As directed] [rollator As directed] HPI Comments Details: Anna comes for evaluation for 2nd opinion for her cardiovascular management. Over the years she has had principal bioinformatics specialist and had multiple different institutions as well as different cardiologists. 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 She was recently in the hospital although not able to tell me she says at [facility] although we did not find any records at [facility] but nothing was done at that time. She comes in today with symptoms of having this left-sided precordial chest pain in his looking for answers. In the past she has had abnormal nuclear stress test with LAD territory ischemia which has led to cardiac catheterization once in July of 2019 showing nonobstructive LAD disease. She subsequently underwent another cardiac catheterization in January of 2021 which showed again nonobstructive disease with no clear evidence of microvascular dysfunction or vaso spasm. She continues to have this chest pain. Symptoms are mostly at rest. She does not have much exertional chest pain. She had also had history of ablation for PVCs in the past in 2020. She says her symptoms of palpitations and strong heartbeat have recurred suggestive of PVCs. Again only happening at rest. She also carries a diagnose of atrial fibrillation although at [facility] records I did not find any evidence of AFib by EKG. She also carries a diagnose of TIA and therefore she has been on Eliquis and has tolerated that well. She had also on ranolazine which she has tolerated valve but has not provided much relief with chest pain syndrome. Again she does not have any exertional chest pain. She was recently diagnose with stiff person syndrome I had a hematologic office in [place] affiliated with [facility]. She currently started on IVIG therapy and says had some side effects to it. She has side effects of several medications in the past. [facility] Medical History Intermittent palpitations Neurogenic bladder History of mammogram (~2022) Ataxia Coronary artery spasm Coronary artery anomaly Hair loss Hemorrhoids Diverticulosis Tubular adenoma Eczema Fibrocystic breast disease Herpes simplex Hypersomnia Witnessed apneic spells Arthritis Difficulty swallowing Weakness On anticoagulant therapy Lumbar spondylosis Spinal stenosis in cervical region Restless legs syndrome (RLS) Anemia Fatigue Cervical spondylosis Anxiety Bipolar disease, manic Occasional tremors Obstructive sleep apnea Insomnia GERD (gastroesophageal reflux disease) Cardiac microvascular disease TIA (transient ischemic attack) Atrial fibrillation Cardiomyopathy Surgical History H/O cervical discectomy History of partial hysterectomy History of tonsillectomy Hx of hand surgery History of radiofrequency ablation procedure for cardiac arrhythmia History of esophagogastroduodenoscopy (EGD) H/O colonoscopy (~10/05/20) H/O radiofrequency ablation (RFA) of nerve of lumbar spine Hx of cervical spine surgery Hx of shoulder surgery H/O: knee surgery Hx of cholecystectomy History of carpal tunnel release Hx of appendectomy Family History Father Dementia Cancer Mother Cancer COPD (chronic obstructive pulmonary disease) Multiple sclerosis Daughter Myasthenia Social History Household Members: Significant Other Housing: House Are you a primary college and career counselor to a significant other at home: No Do you presently have visiting nurse 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, SCREEN TENDER HELPER) Alcohol intake: current Alcohol intake frequency: does not drink Patient Tobacco Use Status: Former Tobacco user service: No Current occupational status: disabled Cognitive needs: Yes (cane ) Hearing needs: No Vision needs: Yes (rx glasses) Review of Systems Const Denies chills, Denies daytime sleepiness, Denies fatigue, Denies fever(s), Denies frequent falls, Denies poor appetite, Denies snoring, Denies stops breathing during sleep, Denies weakness, Denies weight gain and Denies weight loss Eyes Denies loss of vision ENT Denies dizziness and Denies hearing loss Card Denies chest pain, Denies claudication, Denies leg edema, Denies lightheadedness, Denies palpitations, Denies dyspnea, Denies dyspnea on exertion and Denies orthopnea Resp Denies cough, Denies excessive phlegm production, Denies dyspnea, Denies dyspnea on exertion, Denies snoring and Denies wheezing GI Denies abdominal pain, Denies hematochezia, Denies change in bowel habits, Denies nausea and Denies vomiting Denies urinary frequency and Denies dysuria Musc Denies arthralgias, Denies muscle weakness, Denies numbness and Denies other (frequent falls) Skin/Breast Denies nail changes and Denies rash Neuro Denies Abnormal speech present, Denies dizziness, Denies frequent falls, Denies loss of vision, Denies memory loss, Denies numbness and Denies weakness Psych Denies depression and Denies memory loss Endo Denies fatigue and Denies palpitations Laron/Lymph Reports easy bruising and Reports other (anemia) Aller/Immun Denies wheezing Physical Exam Vital Signs: Last Vital Signs Pulse 75 11/19/24 09:18 BP 108/68 11/19/24 09:18 BMI result Body Mass Index 25.2 Const General: cooperative, comfortable, no acute distress, alert, awake and anxious Nutritional Appearance: average body habitus Orientation/consciousness: patient oriented x3 Limitations: ambulation with cane HEENT Head: Yes normocephalic and Yes atraumatic Neck Neck: Yes trachea midline, Yes supple and Yes no JVD Resp Effort & Inspection: normal respiratory effort Auscultation: clear to auscultation bilaterally Cardio Jugular venous distension: no JVD Palpation: normal PMI Rate: regular rate Rhythm: regular rhythm Heart sounds: S1 normal heart sound present, S2 normal heart sound present, no click, no gallops, no murmurs and no rubs GI Auscultation: normal bowel sounds Skin General skin exam: no rashes or lesions noted Neuro General: patient oriented x3 and no focal motor deficits Speech: No Abnormal speech present Extrem General: Yes no clubbing, cyanosis or edema Office Procedures EKG Details: EKG shows normal sinus rhythm with normal EKG [id number], Complete Assessment & Plan Assessment & Plan (1) Palpitations: Code(s): R00.2 - Palpitations Category: Medical Plan: Symptoms of palpitation which could represent recurrence of isolated PVCs although these appear to be infrequent and rare. Benign nature of isolated PVCs were discussed with her. She has already had ablation in the past. Would suggest a 7 day Holter monitor to assess presence of PVCs as well as frequency. This will further decide treatment. Will avoid pharmacotherapy at this point in time. (2) Atrial fibrillation: Code(s): I48.91 - Unspecified atrial fibrillation Category: Medical Plan: History of atrial fibrillation in the past, unclear and could not find any clear documentation. However she has had history of TIA in the past. Would suggest to continue with oral anticoagulation therapy with Eliquis. Associated risk of bleeding was discussed. Semi annual renal function test should be pursued. Avoidance of stimulants was discussed. No pharmacotherapy recommended. (3) Nonobstructive atherosclerosis of coronary artery: Code(s): I25.10 - Atherosclerotic heart disease of [place] coronary artery without angina pectoris Category: Medical Plan: Nonobstructive CAD with abnormal stress test could represent ischemia with normal coronary artery although her coronary flow reserve on cardiac catheterization with within normal limits. She has not had a PET coronary flow reserve study. I think see below, her chest pain is not ischemic in nature. She can continue Ranexa although this can also be discontinued if she developed side effects. (4) Non-cardiac chest pain: Code(s): R07.89 - Other chest pain Plan: Patient chest pain appears to be noncardiac in nature. There was no clear evidence of coronary artery spasm or EKG changes during chest pain syndrome, chest pain is not exertional in nature and she has no known obstructive coronary disease. Therefore at this point I would suggest that no further workup is indicated. Discussed with her about overall benign nature of her chest pain syndrome. Could be related to her musculoskeletal condition. Will follow up in the clinic in 1 year's time if she decides to. Thank you for allowing me to partake in her care Orders: Orders ECG 7 day holter monitor Today R00.2 - Palpitations Coding Level of Care Code New Pt Level 4 (28216) Complex EM visit Add On G2211 Diagnoses Palpitations R00.2 Atrial fibrillation I48.91 Nonobstructive atherosclerosis of coronary artery I25.10 Non-cardiac chest pain R07.89 CPT Codes EKG - CPT: 63629-[id number], Complete ([id number])
--- OUTSIDE RECORDS SUMMARY | 2024-11-19 09:17 | XMS_ITS | Continuity of Care Document ---
Author Organization [facility] [address] [place] [address] Phone [phone] Care Team Providers Care Microsoft Architect Name Role Phone Gustavo Suarez M.D. Care Team Information Recei yadira [phone] Clarence Leiva MD Care Team Information R eceiver [phone] Problems Active Problems Provider Date Multinodular goiter [...] Apply 1 Patch Once A Week Unknown Ydxpysda17fz Tablets Take 1 Tablet By Mouth Twice Daily as Needed For Muscle Spasm Krystina Mendez NP Vutsglsom4ft Tablets Take half hs Unknow n Vitamin D (Ergocalciferol)1.25mg (86848 Ut) Capsules Take 1 Capsule By Mouth every other week Unknown Zahbfvyeba67ay Capsules DR Take 1 Capsule By Mouth Every Day 30 Minutes Before Breakfast Gustavo Suarez M.D. Opkuopdoux308hd Tablets 300mg am, 300mg 2pm, 1200mg 8pm Unknown Woevdcp3te Tablets Take 1 Tablet By Mouth Twice Daily Linda Astudillo MD Lamotrigine JJ635eh Tablets ER 24HR Take 2 Tablets By Mouth Every Day Unknown Methylphenidate KQG51vh Tablets Take 1 Tablet By Mouth Three Times Daily prn Unknown Valacyclovir BAG214bj Tablets Unknown Tizanidine HCL2mg Tablets Unknown Dicyclomine OFC96pd Capsules Take 1 Capsule By Mouth Four [...] 77 TSH With Reflex To FT4 12/12/2022 [facility] TSH With Reflex To FT4 0.33 uIU/mL Low (0.4-4. 2) Anti Thyroid Peroxidase AB 12/12/2022 [facility] Anti Thyroid Peroxidase AB <3.0 IU/mL (<5.6) 1 25Oh Vitamin D 12/12/2022 [facility] 25Oh Vitamin D 50.0 NG/ML (20-50) Free T4 12/12/2022 [facility] Free T4 0.90 ng/dL (0.70-1 .80) 1 Antibody measurement represents one parameter in a multicriteria diagnostic process. Correlate results with clinical presentation. This test was performed on the Wonder[employer] immunoassay system. Medical Devices Description No Information [...]
--- OUTSIDE RECORDS SUMMARY | 2024-11-19 09:17 | XMS_ITS | Clinical Summary ---
Author Organization [facility] [employer] [facility] Address [address] [place] [address] Phone Care Team Providers Care Director Of Collections And Archives Name Role Phone Clarence Leiva MD Primary Care Provider [phone] Allergies Active Allergy Reactions Criticality Noted Date [...] CAD (coronary artery disease) 06/09/2024 Non-ST elevation VA (NSTEMI) ([facility] V24, [facility]/ CC V28) 06/09/2024 Dizziness 04/14/2024 Assessment & [...] this time she is working with a editor continuity and script and will continue to work on dietary adjustments, alternative therapies may be readdressed at her next visit. I have reviewed with the patient the importance of a heart healthy lifestyle which includes eating a low-fat low-salt diet, getting regular exercise, maintaining a healthy weight, not smoking, and following up with routine medical care. PAF (paroxysmal atrial fibri llation) ([facility] V24, [facility] V28) 03/10/2024 Assessment & Plan (04/14/2024 [...] Type Department Care Team Description 09/29/2024 Telephone [facility] [address] [place] [address] Ziggy Ventura MD ranolazine (Ranexa) 500 mg 12 hr tablet . (ranolazine (Ranexa) 500 mg 12 hr tablet . ) from Last 3 Months Surgical History Surgery Date Site/Laterality Comments OTHER SURGICAL HISTORY PROCEDURE:pvc abalation TOTAL KNEE ARTHROPLASTY Right PROCEDURE:REPLACEMENT TOTAL KNEE BUNIONECTOMY PROCEDURE:BUNIONECTOMY DISC REMOVAL PROCEDURE:DISC REMOVAL SHOULDER SURGERY PROCEDURE:SHOULDER SURGERY OTHER SURGICAL HISTORY PROCEDURE:thumb surgery APPENDECTOMY PROCEDURE:APPENDECTOMY TONSILLECTOMY PROCEDURE:TONSILLECTOMY Medical History Medical History Date Comments Hypertension DX:Hypertension A-fib (CMS/HCC V24, CMS/HCC V28) DX:A-fib (HCC) Cardiac microvascular disease DX :Cardiac [...] - 2023-2 5 season) 2024 09/14/2021, 12/13/2020 Depression Screening 05/05/2024 Influenza Vaccine (#1) 2025 03/12/2016 Hypertension/CHF/CAD Annual BMP Blood Test 04/05/2025 04/05/2024 [...] mmol/L LAB CHEMISTRY METHOD 04/05/2024 3:28 PM [facility] Potassium 3.8 3.5 - 5.5 mmol/L LAB CHEMISTRY METHOD 04/05/2024 3:28 PM [facility] Chloride 111(H) 96 - 110 mmol/L LAB CHEMISTRY METHOD 04/05/2024 3:28 PM [facility] CO2 26 21 - 32 mmol/L LAB CHEMISTRY METHOD 04/05/2024 3:28 PM [facility] Anion Gap 8 3 - 11 LAB CHEMISTRY METHOD 04/05/2024 3:28 PM [facility] Glucose 84 70 - 100 mg/dL LAB CHEMISTRY METHOD 04/05/2024 3:28 PM [facility] BUN 9 5 - 25 mg/dL LAB CHEMISTRY METHOD 04/05/2024 3:28 PM [facility] Creatinine 0.63 0.50 - 1.10 mg/dL LAB CHEMISTRY METHOD 04/05/2024 3:28 PM [facility] eGFR 99 >=60 mL/min/1. 73m2 LAB CHEMISTRY METHOD 04/05/2024 3:28 PM [facility] Comment:Calculation based on the Chronic Kidney Disease Epidemiology Collaboration (CKD-EPI) equation refit without adjustment for race. BUN/Creatinine Ratio 14.3 LAB CHEMISTRY METHOD 04/05/2024 3:28 PM [facility] Calcium 9.5 8.5 - 10.5 mg/dL LAB CHEMISTRY METHOD 04/05/2024 3:28 PM [facility] AST (SGOT) 24 10 - 42 unit/L LAB CHEMISTRY METHOD 04/05/2024 3:28 PM [facility] ALT (SGPT) 19 10 - 60 unit/L LAB CHEMISTRY METHOD 04/05/2024 3:28 PM [facility] Alkaline Phosphatase 65 42 - 121 unit/L LAB CHEMISTRY METHOD 04/05/2024 3:28 PM [facility] Total Protein 6.6 6.0 - 8.0 g/dL LAB CHEMISTRY METHOD 04/05/2024 3:28 PM [facility] Albumin 3.7 3.2 - 5.0 g/dL LAB CHEMISTRY METHOD 04/05/2024 3:28 PM [facility] Total Bilirubin 0.6 0.0 - 1.4 mg/dL LAB CHEMISTRY METHOD 04/05/2024 3:28 PM [facility] Blood Venous blood specimen / Unknown Venipuncture / Unknown 04/05/2024 2:46 PM EST 04/05/2024 2:59 PM EST us Enrique Moyer MD LAB BLOOD ORDERABLES Final Result [facility] [address] [place] [address], from Last 3 Months or Most Recently Relevant to Health Maintenance Insurance [employer] MEDICARE ADVANTAGE CIGNA Advance Directives Documents on File Type Date Recorded 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
--- OUTSIDE RECORDS SUMMARY | 2024-11-19 09:17 | XMS_ITS | Clinical Summary ---
Author Organization [facility] Address [address] [address] Phone Care Team Providers Care Egg Sorter Name Role Phone Gustavo Suarez DO Primary Care Provider [phone] Allergies Active Allergy Reactions Criticality Noted Date [...] formulations. However, I do believe that her schedule clerk should weigh in on this as well. Therefore, I will send a copy of today's note. Her current dose of estradiol is 0 0.075 mg per 24 hours changed weekly. I cannot find in the chart where her previous dose was but according to the notes it was decreased to this current dose. If her schedule clerk is in agreement, she will call when [...] this topic Insurance [employer] MCR Adv PPO ([id number]) ) [facility] Open Access ([id number]) Care Teams Egg Sorter Relationship Specialty Start Date End Date Gustavo Suarez DO [address] [place] [address] PCP - General 05/15/20
--- OUTSIDE RECORDS SUMMARY | 2024-11-19 09:17 | XMS_ITS | Clinical Summary ---
Author Organization [facility] Address [address] [place] [address] Care Team Providers Care Dry Kiln Operator Helper Name Role Phone Gustavo Suarez DO Primary [...] 5 12/01/2023 Active ergocalciferol (VITAMIN D2) capsule 33258 units Take 1 capsule (50,000 Units total) [...] age to complete this topic Care Teams Dry Kiln Operator Helper Relationship Specialty Start Date End Date Gustavo Suarez DO [address] [place] [phone] PCP - General Internal Medicine 06/23/18
--- OUTSIDE RECORDS SUMMARY | 2024-11-19 09:17 | XMS_ITS ---
[facility] Name [facility] Results Test Name/Text Value Interpretation Date Range Source cCP IgG SerPl-aCnc 1.2 Elvi U/mL Normal 09/27/2023 - 7 [facility] fine speckled Ser Ql IF Homogeneous Normal 09/26/2023 [facility] Titr Ser IF 1:80 Abnormal 09/26/2023 - [facility] Titr Ser IF Positive Abnormal 09/26/2023 - [facility] Methylmalonate SerPl-sCnc 0.13 umol/L Normal 09/25/2023 0 - 0.4 [facility] ESR Bld Qn 5.0 mm/hr Normal 09/24/2023 0 - 20 [facility] CRP SerPl HS-mCnc 1.3 mg/L Normal 09/24/2023 - [facility] CK SerPl-cCnc 212.0 U/L Above high normal 09/24/2023 11 - 20 4 [facility] Magnesium SerPl-mCnc 2.2 mg/dL Normal 09/24/2023 1.7 - 2. 4 [facility] History of Medication Use Medication Directions Dispensed Refills Start Date End Date Stat us baclofen (LIORESAL) 20 MG tablet TAKE 1 TABLET BY MOUTH TWICE DAILY FOR MUSCLE SPASM 07/21/2023 active gabapentin (NEURONTIN) 600 MG tablet Take 2 tablets (1,200 mg total) by mouth daily. 06/12/2023 active albuterol 108 (90 Base) MCG/ACT inhaler Inhale 1 puff into the lungs every 4 (four) hours as needed. 07/13/2021 active Eliquis 5 MG TABS tablet Take 1 tablet (5 mg total) by mouth 2 (two) times a day. 05/15/2021 active omeprazole (PriLOSEC) 20 MG capsule Take 1 capsule (20 mg total) by mouth daily. 30 minutes before breakfast 05/15/2021 active aspirin 81 MG chewable tablet Chew 81 mg by mouth daily. 08/05/2019 08/08/2023 aborted lamoTRIgine ER 200 MG TB24 Take 2 tablets by mouth daily. 04/04/2019 active Allergies Allergen Reaction Severity Comment Documented Date Source Statu s OXYCODONE-ACETAMINOP HEN NAUSEA AND VOMITING 06/05/2021 [facility] active LACTOSE OTHER (SEE COMMENTS) 07/04/2020 [facility] active PENICILLINS RASH 07/09/2017 [facility] active CODEINE RASH [facility] Problems Problem Status Onset Date Problem Type Date of Resoluti on Source Encounter to establish care with new doctor active EncounterDiagnosisAct CTT [facility] Multiple sclerosis (HCC) active EncounterDiagnosisAct [facility] Multiple sclerosis (HCC) active EncounterDiagnosisAct [facility]
--- OUTSIDE RECORDS SUMMARY | 2024-11-19 09:17 | XMS_ITS | Clinical Summary ---
Author Organization [facility] Address [address] [place] [address] Phone Care Team Providers Care Child Welfare Specialist Name Role Phone Gustavo Suarez DO Primary Care Provider Ellie Kan PA Unavailable [phone] Allergies Active Allergy Reactions Criticality Noted Date Comments Adhesive 05/18/2024 Skin reaction to regular and allergan holter monitor adhesives. Codeine Nausea And Vomiting Medium 07/09/2017 Hydrocodone-Acetaminoph en Dizziness,Nausea and/or Vomiting,Nausea And Vomiting,Other (See Comments) 11/27/2022 Lactose GI Upset,Other (See Comments) Medium 07/04/2020 Mold Other (See Comments) Medium 01/27/2024 Burning and tinging feeling when exposed Oxycodone-Acetaminophen Nausea And Vomiting 05/2021 Penicillins Hives 02/16/2018 Medications lamoTRIgine (LAMICTAL XR) 300 mg TR24 Take 400 mg by mouth daily. Active gabapentin (NEURONTIN) 600 MG tablet Take 300 mg by mouth. 300mg in the morning, 300mg midday, 1200mg at bedtime Active nitroglycerin (NITROSTAT) 0.[address] 0.4 mg under the tongue every 5 (five) minutes as needed for chest pain. Active omeprazole (PRILOSEC) 20 MG tablet Take 20 mg by mouth. 09/29/2020 Active apixaban (ELIQUIS) 5 mg tablet Take by mouth. 03/15/2022 Active baclofen (LIORESAL) 10 MG tablet Take 20 mg by mouth. 02/02/2022 Active ergocalciferol (VITAMIN D2) 50,000 unit capsule Take 50,000 Int'l Units by mouth. 11/27/2021 Active docusate sodium (COLACE) 100 MG capsule Take 100 mg by mouth 2 (two) times a day. 04/10/2023 Active LORazepam (ATIVAN) 2 MG tablet Take 2 mg by mouth every 6 (six) hours as needed. Active valACYclovir (VALTREX) 500 MG tabletIndicatio ns:History of herpes genitalis TAKE 1 TABLET(500 MG) BY MOUTH TWICE DAILY 180 tablet 1 04/20/2024 Active estradioL (CLIMARA) 0.075 mg/24 hrIndications:M enopausal syndrome Place 1 patch onto the skin once a week. 12 patch 3 05/25/2024 Active diazePAM (VALIUM) 5 MG tablet Take 5 mg by mouth 3 (three) times a day. Active dicyclomine (BENTYL) 10 MG capsule Take 10 mg by mouth 4 (four) times a day before meals and nightly. Active ranolazine (RANEXA) 500 MG 12 hr tablet Take 500 mg by mouth 2 (two) times a day. 04/07/2024 Active Active Problems Problem Noted Date Diagnosed Date History of herpes genitalis 05/24/2020 Fecal incontinence 04/08/2019 SYDNEY (stress urinary incontinence, female) 2017 Assessment & Plan (05/24/2020 10:42 AM EST): Her stress incontinence symptoms have essentially resolved after the sling procedure. She also noticed an improvement in her urinary urgency. She is overall very pleased with the results of the sling. Cystocele, midline 02/19/2018 Urine, incontinence, stress female 02/19/2018 Menopausal syndrome 02/19/2018 Assessment & Plan (11/27/2022 9:15 PM EDT): I explained that I am concerned regarding her history of stroke/TIA and the fact that she has continued on the estradiol patch. I explained that there is some new data to suggest that transdermal forms of estradiol may not confer the same level of risk associated with stroke and blood clots as oral formulations. However, many menopausal experts would still recommend avoiding estrogen in the setting of a previous stroke. She states that she has discussed this with her cotton buyer who thought that it was reasonable to continue with the estradiol patch. She is on an anticoagulant which would decrease the risk of stroke associated with the VTE. I will see if I can contact her cotton buyer for some further guidance and also do some more current research on the use of transdermal estrogen and the risk of stroke. Assessment & Plan (05/24/2020 10:45 AM EST): I explained that there may be a small increased risk of cardiovascular events associated with the use of estrogen replacement therapy. I explained that the risk may be slightly less with transdermal formulations as opposed to oral formulations. However, I do believe that her cotton buyer should weigh in on this as well. Therefore, I will send a copy of today's note. Her current dose of estradiol is 0 0.075 mg per 24 hours changed weekly. I cannot find in the chart where her previous dose was but according to the notes it was decreased to this current dose. If her cotton buyer is in agreement, she will call when she needs a refill. Resolved Problems Problem Noted Date Diagnosed Date Resolved Date Cyst of right ovary 07/14/2024 07/15/19 25 Overview (07/14/2024): 3 small follicles July 2023 each < 1cm, stable or smaller than 2023 Assessment & Plan (07/14/2024 6:26 PM EDT): No need for ongoing imaging Family History Medical History Relation Comments Dementia Father Lung cancer Father Breast cancer Maternal Aunt 1 Breast cancer Maternal Aunt 2 Breast cancer Maternal Aunt 3 Breast cancer Maternal Aunt 4 Breast cancer Maternal Aunt 5 No Known Problems Maternal Grandfather No Known Problems Maternal Grandmother Breast cancer Mother COPD Mother Heart disease Paternal Grandfather No Known Problems Paternal Grandmother Relation Status Comments Father Maternal Aunt 1 Maternal Aunt 2 Maternal Aunt 3 Maternal Aunt 4 Maternal Aunt 5 Maternal Grandfather Maternal Grandmother Mother Paternal Grandfather Paternal Grandmother Social History Tobacco Use Types Packs/Day Years Used Date Smoking Tobacco: Former Cigarettes Q uit: 1992 Smokeless Tobacco: Never Alcohol Use Standard Drinks/Week Comments Not Currently 0 (1 standard drink = 0.6 oz pur e alcohol) Education Answer Date Recorded Are you interested in more education? Not on nino e 08/30/2022 Are you concerned about learning? Not on file 08/30/2022 No 08/30/2022 No 08/30/2022 Digital Access Answer Date Recorded No 09/25/2022 No 09/25/2022 Reliable internet access at home? Not on file 09/25/2022 Device with a working camera? Not on file Comments No Sex and Gender Information Value Date Recorded Sex Assigned at Female 11/20/2022 12:48 PM EDT Legal Sex Female 9:16 AM EDT Gender Identity Female 11/20/2022 12:48 PM EDT Sexual Orientation Straight 11/20/2022 12 :48 PM EDT Last Filed Vital Signs Vital Sign Reading Time Taken Comments Blood Pressure 122/70 07/14/2024 12:00 PM EDT Pulse 66 01/15/2022 12:43 PM EDT Temperature 36.2 C (97.2 F) 01/15/2022 12:43 PM EDT Respiratory Rate - - Oxygen Saturation 99% 01/15/2022 12:43 PM EDT Inhaled Oxygen Concentration - - Weight 52.6 kg (116 lb) 06/16/2024 2:38 PM EST Height 160 cm (5' 3 ) 07/14/2024 12:00 PM EDT Body Mass Index 20.55 06/16/2024 2:38 PM EST Plan of Treatment Health Maintenance Due Date Last Done Comments Adult Td,Tdap Booster 1960 CREATININE LEVEL 1960 LIPID PANEL 1960 HEPATITIS C SCREENING 01/09/1978 HIV ONE-TIME SCREENING (18-6 5 YEARS) 01/09/1978 PAP SMEAR 01/09/1981 COLOGUARD 01/09/2005 COLONOSCOPY 01/09/2005 COLORECTAL CANCER SCREENING 01/09/2005 FIT TEST 01/09/2005 FOBT 01/09/2005 SIGMOIDOSCOPY 01/09/2005 VIRTUAL COLONOSCOPY 01/09/2005 PNEUMOCOCCAL VACCINES (50+ years) (1 of 1 - PCV) 01/09/2010 ZOSTER VACCINES (2 of 2) 02/02/2018 12/08/2017 DEPRESSION SCREENING 01/14/2023 01/14/2022 COVID-19 VACCINE (3 - 2023-2 5 season) 2024 09/14/2021, 12/13/2020 SMOKING Hx and SMOKELESS TOBACCO SCREENING 06/16/2025 06/16/2024 MAMMOGRAM 06/16/2026 06/16/2024, 09/25/2022, 06/28/2020 RSV VACCINE (1 - 1-dose 75+ series) 01/09/2035 HEPATITIS A VACCINES Aged Out No long er eligible based on patient's age to complete this topic HIB VACCINES Aged Out No longer eligi ble based on patient's age to complete this topic MENINGOCOCCAL VACCINES (ACWY) Aged Out No longer eligible based on patient's age to complete this topic MENINGOCOCCAL VACCINES (B) Aged Out N o longer eligible based on patient's age to complete this topic Medical Devices Not on file Procedures Procedure Name Priority Date/Time Associated Diagnosis Comments BI MAMMOGRAM SCREENING (BILATERAL) Routine 06/16/2024 2:46 PM EST Encounter for gynecological examination without abnormal finding from Last 3 Months or Most Recently Relevant to Health Maintenance Results * MAMMOGRAPHY FOR RESULT ENTRY ONLY (09/25/2022) Tesfaye Spangler MD HEALTH MAINTENANCE Final Resu lt from Last 3 Months or Most Recently Relevant to Health Maintenance Insurance MEDICARE PART A & B Member Subscriber Plan / Payer (Ef fective 1993-Present) Name:Ying Denton Member ID:[id number] Relation to Subscriber:Self Name:Ying Denton Subscriber ID:[id number] Payer ID:[id number] Group ID:Not on file Type:Medicare Address: [facility] tabulate [facility] [address] [place] [place] [address] AETNA PPO MEDICARE [place] [address] MEDICARE PART A & [facility] [place] [address] MEDICARE PART A & B [facility] RE[facility] [place] MEDICARE PART A & [facility] RE[facility] Elie JOSE M MORSECarolyn PANKAJ [place] [id number] MEDICARE PART A & B [facility] RE[facility] CIGNA TPA Elie [place] MEDICARE PART A & [facility] Elie [place] MEDICARE PART A & B [facility] MEDIC[facility] REPLACEMENT CIGNA TPA MEDICARE PART A & B [facility] MEDICARE [place] [address] MEDICARE PART A & [facility]AC[facility] CIGNA TPA Care Teams Child Welfare Specialist Relationship Specialty Start Date End Date Gustavo Suarez DO [address] [place] [id number] PCP - General Internal Medicine 02/16/18 Ellie Kan PA [address] [place] [address] Physician Orchestra Teacher 07/14/24 Additional Source Comments The information contained in this document represents components of the legal health record. It is not the complete legal health record.[facility]
--- OUTSIDE RECORDS SUMMARY | 2024-11-19 09:17 | XMS_ITS | Encounter Summary ---
Author Organization [facility] Address [address] [place] [phone] Care Team Providers Care Public Stenographer Name Role Phone No, Pcp (Do Not Change Name) Primary Care Provid er Unavailable Encounter Details Date Type Department Care Team (Late st Contact Info) Description 10/10/2023 Transcribed Orders [facility] SCHEDULING [address] [place] [address] Referral, Self Social History Tobacco [...] Description 12/21/2024 1:00 PM EDT Office Visit [facility] [address] [address] Richard Lewis MD [address] [place] [address] documented as of this encounter Visit Diagnoses Not on filedocumented in this encounter Additional Health Concerns Assessment Noted Time PHQ-9 Depression Total Score: 0 09/24/19 24 9:25 AM EDT documented as of this encounter Care Teams Public Stenographer Relationship Specialty Start Date End Date No, Pcp (Do Not Change Name) PCP - General 07/19/24 documented as of this encounter
--- OUTSIDE RECORDS SUMMARY | 2024-11-19 09:17 | XMS_ITS | Referral Summary ---
Author Organization [facility] Address [address] [place] [address] Care Team Providers Care Call Worker Person Name Role Phone Gustavo Suarez Primary Care [...] Plan of Treatment Not on file Insurance [facility] * Guarantor: DANIELLE NUGENT Account Type Relation to Patient Date of Phone Billing Address Personal/Family 1960 Care Teams Call Worker Person Relationship Specialty Start Date End Date Gustavo Suarez [address] [place] [address] [place] [address] PCP - General Internal Medicine 11/13/22
[2024-11-19 09:18] VITALS: BP 108/68; PULSE 75; BMI 25.2
--- OUTSIDE RECORDS SUMMARY | 2024-11-19 09:18 | XMS_ITS | Data Portability ---
Author Organization [place] [facility], Allergy Address [address] [place] [id number] Assessment No assessment recorded. Plan of Treatment [...] of nose, middle ear and accessory sinuses [id number] Active 2019 Benign neoplasm of middle ear, nasal cavity and accessory sinuses; Note: Date Diagnosed : 04/07/2020 1:44 PM (D14.0) Not Available [facility] 02:19:03 Ataxia 16426518 Active 2019 Ataxia, unspecifi ed; Note: Date Diagnosed : 04/07/2020 1:44 PM (R27.0) Not Available [facility] 02:18:41 Dysphagia [id number] Active 2023 GISELA PRUETT MD [address] [facility] [place] [address], [place], [phone] , [facility] - [facility] 10:19:25 Gastroeso phageal reflux disease without esophagit is 945442184 Active 2023 GISELA PRUETT MD [address] [facility] [place] [address], [place], [address] , [facility] - [facility] 10:19:44 Chronic hoarsenes s [id number] 05 Active 2023 GISELA PRUETT MD [address] [facility] [place] [address], [place], [address] , [facility] - [facility] [place] 10:20:46 Problem Notes None recorded. Procedures Surgical History Date Name Laterality Status Provider Name and Address Organization Details Recorded Time 11/11/2023 FFL_RE completed GISELA PRUETT MD [address] [facility] [place] [address], [place], [phone], [facility] - [facility] 11/11/2023 10:26:08 Imaging Results None recorded. Procedure Notes None recorded. Medical Equipment None Reported. Allergies Allergen ID Allergen Name Allergen Category Reaction Reaction Severity Criticality Documentation Date Start Date Code Code System Note Provider Name and Address Organization Details Recorded Time 34284 Product containin g penicilli n (product) medicatio n hives Not available Not available 09/16/2023 72354 8001 SNOMED React ion: skin rashe s, hives ;; Not Available [facility] 00:48:35 07624 codeine medicatio n nausea Not available Not available 09/16/2023 2670 RxNorm React ion: Stoma ch cramp s; Not Available [facility] 00:48:40 25908 acetamino phen / oxycodone medicatio n nausea Not available Not available 09/16/2023 38012 3 RxNorm React ion: nause a;; Not [...] 20 mg tablet active Medicatio n ID: [id number] Br and Name: atorvasta tin Send Method: [...] release 24 hr active Medicatio n ID: [id number] Br and Name: isosorbid e mononitra te [...] 300 mg capsule active Medicatio n ID: [id number] and Name: gabapenti n Send Method: E-Prescri [...] 25 mg tablet active Medicatio n ID: [id number] Br and Name: metoprolo l tartrate Send [...] Updated DateTime 11/11/2023 160.02 cm 21.8 kg/m2 49288.86 g Delores Mejía [place] [facility] 11/11/2023 09:58:27 Social History None recorded. [...] Note 6977 GISELA PRUETT MD [facility] [address] [phone] 11/11/2023 09:08:06 11/11/2023 10:28:26 Dysphagia [id number] R13.10 see below Gastroesop hageal reflux disease without esophagitis [id number] K21.9 continue omeprazole per prescribin g provider Chronic hoarseness 18577 83900 105 R49.0 Her right vocal cord is sluggish. No glottic gap. Likely recovering after ACDF. MBS showed a safe swallow. I suspect her neuromuscu lar disorder may contribute to her dysphagia as well and I recommend she keep f/u with her neurologis ts at [place]. No ENT interventi on needed. No tumors [...] 1 [employer] (MEDICARE REPLACEMENT/ ADVANTAGE - PPO) [id number] Elke Ying A Bertin [id number] Ying [place] 11/11/2023 2 [employer] - ALLEGIANCE B[employer]EFIT [employer]AN MANAGEMENT (PPO) Ying Bedoya Bertin [id number] Ying [place]enton Notes Date Note Type Note [...] swallowing. She is being worked up at [place] for a neurologic disorder. She has muscle cramping and she can't use her left arm well. On omeprazole for GERD. Hx of ACDF. She has had some voice trouble since with difficulty projecting. GISELA PRUETT MD [address] [place] [address], [place], [phone], [facility] - [facility] 11/11/2023 10:28:19 OBGyn Episode No OBEpisode recorded.
== END 2024-11-19 10:09 | disposition home or self-care (01) ==
PROVIDERS: PCP Physician Assistant Medical; Visit Provider Internal Medicine Cardiovascular Disease
DX: I48.91 Unspecified atrial fibrillation (principal); R00.2 Palpitations; I25.10 Atherosclerotic heart disease of native coronary artery without angina pectoris; R07.89 Other chest pain
CPT/HCPCS: 93010; 99214; G2211

== ENCOUNTER → 2024-11-19 09:10 | Outpatient (BNVA) | payer OTHER, MEDICARE, MEDICAID, SELFPAY | PROVIDERS: PCP Physician Assistant Medical; Visit Provider Internal Medicine Cardiovascular Disease | DX: R00.2 Palpitations (principal); I48.91 Unspecified atrial fibrillation; I25.10 Atherosclerotic heart disease of native coronary artery without angina pectoris; I10 Essential (primary) hypertension; R07.89 Other chest pain | CPT/HCPCS: 93005; 99212 ==

== ENCOUNTER 2024-12-23 13:13 | Outpatient (AMB) | payer MEDICARE, OTHER, SELFPAY ==
[2024-12-23 13:25] VITALS: BP 130/65; PULSE 82; RESP 16; TEMP 36.3; O2SAT 97; BMI 25.8
--- NOTE | 2024-12-23 13:25 | MHC.PC.OV ---
Vital Signs 12/23/24 13:25 Height 5 ft 0.25 in Weight 133 lb 4 oz BMI 25.8 BP 130/65 Blood Pressure Location Rt femoral Position Sitting Respiration 16 Pulse 82 Pulse Source Pulse Oximeter Temp 97.3 F Temp Source Temporal Artery Scan Pulse Oximetry (%) 97 Oxygen Delivery Method Room Air Intake Visit Reasons: 3 month f/u Behavioral Interventionist Required: No Accompanied by: Self / Same As Patient Allergies Beta-Blockers (Beta-Adrenergic Bloc Allergy (Mild, Verified 12/23/24 14:04) blood pressure drop house dust Allergy (Mild, Verified 12/23/24 14:04) Anaphylaxis penicillin G (Penicillin G) Allergy (Mild, Verified 12/23/24 14:04) RASH penicillin V Allergy (Unknown, Verified 12/23/24 14:04) Abdominal Pain adhesive Allergy (Verified 12/23/24 14:04) Blister mold Allergy (Verified 12/23/24 14:04) Headache Trtqnbr-ZSG-KpV Reductase Inhibitor Allergy (Verified 12/23/24 14:04) Weakness codeine (Codeine) Adverse Reaction (Mild, Verified 12/23/24 14:04) SEVERE ABDOMINAL PAIN Medication List - Last Reconciled 12/23/24 by Ellie Kan PA-C apixaban (Eliquis) 5 mg PO BID baclofen 20 mg PO Q4H 90 days diazepam (Valtoco) mg intranasal diazepam 10 mg PO BID PRN diazepam (Valium) 5 mg PO BID PRN dicyclomine 10 mg PO QID epinephrine 0.3 mg (0.3 mL) IM Q10M PRN ergocalciferol (vitamin D2) 1,250 mcg PO Q2W estradiol 1 patch transdermal WE@0900 gabapentin 1,200 mg PO DAILY@1900 immune globul G-gly-IgA avg 46 20 gram/200 mL (10 %) (Gamunex-C) mL IV immune globul G-gly-IgA avg 46 5 gram/50 mL (10 %) (Gamunex-C) mL IV lamotrigine ER 400 mg PO DAILY miscellaneous medical supply Bed Assist Rail omeprazole 20 mg PO BID 90 days [Portable Mobility Bed rail As directed] [rollator As directed] Tobacco use date assessed: 11/09/24 Fall risk assessment: No Falls in past year Last assessed Fall Risk: 11/09/24 Dental Screening Dental Screen Date: 11/09/24 Did you have a dental visit in the last 12 months?: Yes Did you have a dental problem in the last 6 months where you did not have access to dental care?: No Was dental information given to patient?: Patient has dentist HPI 3 month f/u HPI Details The patient is a 64-year-old female presenting for a follow-up visit. 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 She is currently on baclofen and diazepam for symptom management, with recent adjustments to her diazepam dosage by her neurologist, Dr. Richard Lewis at [place]. The patient also has a history of atrial fibrillation and is on Eliquis for anticoagulation. She has experienced transient ischemic attacks in the past. Arthritis affects both of her hands, with severe pain and crystallization in her fingers impacting dexterity. She has undergone tendon surgery and is under ongoing monitoring by her hand doctor. The patient has a history of carpal tunnel syndrome, for which she has undergone multiple surgeries. Bladder retention has been an issue, but the condition has improved following the reset of her bladder stimulator. She has been advised on self-catheterization by her urologist, who provides emergency support if needed. The patient reports intestinal cramping, which has been identified as the cause of her bowel issues. She experiences blurred vision intermittently, which is being monitored by her neurologist. The patient has been gaining weight, attributed to muscle mass increase as her muscles recover. She is on a special diet related to her stiff person syndrome and has been referred to a manager billing for further management. Social History - Nutrition: The patient is on a special diet related to stiff person syndrome and has been referred to a manager billing for further management. [facility] Medical History (Updated 12/23/24 @ 16:10 by Ellie Kan PA-C) Muscle weakness Blurry vision Intestinal cramps Bladder retention Carpal tunnel syndrome Right hand pain Overweight (BMI 25.0-29.9) Intermittent palpitations Neurogenic bladder History of mammogram (~2022) Ataxia Coronary artery spasm Coronary artery anomaly Hair loss Hemorrhoids Diverticulosis Tubular adenoma Eczema Fibrocystic breast disease Herpes simplex Hypersomnia Witnessed apneic spells Arthritis Difficulty swallowing Weakness On anticoagulant therapy Lumbar spondylosis Spinal stenosis in cervical region Restless legs syndrome (RLS) Anemia Fatigue Cervical spondylosis Anxiety Bipolar disease, manic Occasional tremors Obstructive sleep apnea Insomnia GERD (gastroesophageal reflux disease) Cardiac microvascular disease TIA (transient ischemic attack) Atrial fibrillation Cardiomyopathy Surgical History H/O cervical discectomy History of partial hysterectomy History of tonsillectomy Hx of hand surgery History of radiofrequency ablation procedure for cardiac arrhythmia History of esophagogastroduodenoscopy (EGD) H/O colonoscopy (~10/05/20) H/O radiofrequency ablation (RFA) of nerve of lumbar spine Hx of cervical spine surgery Hx of shoulder surgery H/O: knee surgery Hx of cholecystectomy History of carpal tunnel release Hx of appendectomy Family History Father Dementia Cancer Mother Cancer COPD (chronic obstructive pulmonary disease) Multiple sclerosis Daughter Myasthenia Social History Household Members: Significant Other Housing: House Are you a primary rn medicare to a significant other at home: No Do you presently have visiting nurse 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 1. Little interest or pleasure in doing things: nearly every day 2. Feeling down, depressed, or hopeless: more than half the days 3. Trouble falling or staying asleep, or sleeping too much: not at all 4. Feeling tired or having little energy: nearly every day 5. Poor appetite or overeating: nearly every day 6. Feeling bad about yourself - or that you are a failure or have let yourself or your family down: not at all 7. Trouble concentrating on things, such as reading the newspaper or watching television: nearly every day 8. Moving or speaking so slowly that other people could have noticed. Or the opposite - being so fidgety or restless that you have been moving around a lot more than usual: nearly every day 9. Thoughts that you would be better off or of hurting yourself in some way: several days Total score: 18 Depression Screening Interpretation: Positive Depression Screening Follow-up: Existing condition and In treatment Depression Screening Done: Yes 72631 - PHQ-9 Billing: Yes Source: Developed by Drs. Gustavo Russell, Raquel Ramírez, Crispin Null and colleagues, with an educational edilberto from [employer]. Thrive Questionnaire Date Thrive assessed: 09/24/24 I am a: Patient What is your living situation today?: I have a steady place to live Within the past 12 months, did the food you bought not last and you didn't have the money to get more?: Never true Within the past 12 months, did you worry whether your food would run out before you got money to buy more?: Never true Do you have trouble paying for medicines?: No Do you have trouble getting transportation to medical appointments?: No Do you have trouble paying your heating and electricity bill?: No Do you have trouble taking care of your child, family member or friend?: No Do you have trouble with day-to-day activities such as bathing, preparing meals, shopping, managing finances, etc.?: No Are you currently unemployed and looking for a job?: No Are you interested in more education?: No Please select the resources that you would like help with: None THRIVE Score: 0 AUDIT C Alcohol Use Questionnaire (AUDIT-C) 1. How often do you have a drink containing alcohol?: Never 3. How often do you have six or more drinks on one occasion?: Never Total Score: 0 Score Reviewed/Action Taken: Yes CARYN-7 AMB Questionnaire CARYN-7 Date CARYN - 7 assessed: 09/24/24 Feeling nervous, anxious, or on edge: 2 = More than half the days Not being able to stop or control worryin = Several days Worrying too much about different things: 2 = More than half the days Trouble relaxin = Several days Being so restless that it is hard to sit still: 0 = Not at all Becoming easily annoyed or irritable: 1 = Several days Feeling afraid as if something awful might happen: 1 = Several days Total CARYN-7 score (0-4 normal; 5-9 mild; 10-14 moderate; 15-21 severe): 8 Source: Developed by Drs. Gustavo Russell, Raquel Ramírez, Crispin Null and colleagues, with an educational edilberto from [employer]. CARYN-7 Assessment Billing CARYN-7 Assessment Tool: CARYN-7 Assessment 61671 Review of Systems Const Details: - Neurological: Reports difficulty with breathing and muscle-related issues, blurred vision intermittently. - Gastrointestinal: Reports intestinal cramping causing bowel issues. - Genitourinary: Reports bladder retention, improved with bladder stimulator reset. - Musculoskeletal: Reports severe pain and crystallization in fingers, impacting dexterity. All systems reviewed & are unremarkable except as noted in HPI and below Physical exam (Primary Care) Vital Signs: Last Vital Signs Temp 97.3 F 12/23/24 13:25 Pulse 82 12/23/24 13:25 Resp 16 12/23/24 13:25 BP 140/65 H 12/23/24 13:25 Pulse Ox 97 12/23/24 13:25 Oxygen Delivery Method Room Air 12/23/24 13:25 Care Plan Goal for BP management: <140/90 at Goal BMI result Body Mass Index 25.8 BMI Assessment/Plan discussion: High BMI High, discussed plan: lifestyle, weight reduction, dietary, physical activity, alcohol moderation and other Tobacco/Smoking Status: Tobacco use Status Tobacco use date assessed 11/09/24 12/23/24 13:29 Patient Tobacco Use Status Former Tobacco user 12/23/24 13:29 PHQ-9: PHQ-9 Score PHQ-9: Total score 18 12/23/24 13:29 Depression Screening Interpretation: Positive Depression Screening Follow-up: Existing condition and In treatment Thrive Assessment: Date of Thrive Assessment Date Thrive assessed 09/24/24 12/23/24 13:29 Const Other: Appearance: Alert. Oriented X3. No acute distress. Head: Normal external exam. Normocephalic. Atraumatic. Eyes: Pupils are equal, round, and reactive to light. Extraocular movements intact. Conjunctiva and sclera normal. Eyelids normal. Ears: External auditory canal normal. Tympanic membranes normal. Throat: Pharynx normal. Uvula midline. Moist mucous membranes. Neck: Normal inspection. Neck supple. Full range of motion. No adenopathy. Thyroid Normal. No meningeal signs. No neck mass noted. Cardiovascular: Normal heart rate and rhythm. Heart sound normal. No murmurs noted. Pulses normal throughout. Respiratory: No respiratory distress. Painless inspiration. Breath sounds normal. No wheezes/rales/rhonchi noted. Chest nontender. No accessory muscle usage noted or decreased air movement noted. Abdomen: Soft and nontender. Bowel sounds normal in all 4 quadrants. No distention noted. No organomegaly noted. No visible injury noted. Back: No costovertebral angle tenderness. Full range of motion noted. Skin: Skin warm and dry. Normal skin color. Extremities: No lower extremity edema. Extremities exhibit normal range of motion. Neuro: Oriented X 3. No motor deficit. No sensory deficit. Reflexes normal. Coding Level of Care Code Est Pt Level 4 (40603) Complex EM visit Add On G2211 Diagnoses Stiff person syndrome G25.82 Atrial fibrillation I48.91 Arthritis M19.90 Carpal tunnel syndrome G56.00 Bladder retention R33.9 Intestinal cramps R10.9 Blurry vision H53.8 Muscle weakness M62.81 Additional Codes CARYN-7 Assessment Billing - CARYN-7 Assessment Tool: CARYN-7 Assessment 03499 ([id number]) PHQ-9 - 78244 - PHQ-9 Billing: Yes ([id number]) Time Spent (min) 60 Assessment & Plan Assessment & Plan (1) Stiff person syndrome: Code(s): G25.82 - Stiff-man syndrome Category: Medical Plan: The patient is currently managed with baclofen and diazepam, with recent dosage adjustments by her neurologist. Botox treatment is being considered, pending approval. (2) Atrial fibrillation: Code(s): I48.91 - Unspecified atrial fibrillation Category: Medical Plan: The patient is on Eliquis for anticoagulation and has a history of transient ischemic attacks. (3) Arthritis: Code(s): M19.90 - Unspecified osteoarthritis, unspecified site Category: Medical Plan: The patient experiences severe pain and crystallization in her fingers, impacting dexterity, and is under ongoing monitoring by her hand doctor. (4) Carpal tunnel syndrome: Code(s): G56.00 - Carpal tunnel syndrome, unspecified upper limb Category: Medical Plan: The patient has undergone multiple surgeries for carpal tunnel syndrome. (5) Bladder retention: Code(s): R33.9 - Retention of urine, unspecified Category: Medical Plan: The condition has improved following the reset of her bladder stimulator, and she has been advised on self-catheterization by her urologist. (6) Intestinal cramps: Code(s): R10.9 - Unspecified abdominal pain Category: Medical Plan: The patient reports intestinal cramping as the cause of her bowel issues. (7) Blurry vision: Code(s): H53.8 - Other visual disturbances Category: Medical Plan: The patient experiences blurred vision intermittently, which is being monitored by her neurologist. (8) Muscle weakness: Code(s): M62.81 - Muscle weakness (generalized) Category: Medical Plan: The patient has been gaining weight attributed to muscle mass increase as her muscles recover, and she is on a special diet related to her stiff person syndrome. Plan Plan Patient was informed and verbally consented to the use of an ambient scribe for clinic note documentation during this visit. 1. Stiff Person Syndrome The patient is currently managed with baclofen and diazepam, with recent dosage adjustments by her neurologist. Botox treatment is being considered, pending approval. 2. Atrial Fibrillation The patient is on Eliquis for anticoagulation and has a history of transient ischemic attacks. 3. Arthritis The patient experiences severe pain and crystallization in her fingers, impacting dexterity, and is under ongoing monitoring by her hand doctor. 4. Carpal Tunnel Syndrome The patient has undergone multiple surgeries for carpal tunnel syndrome. 5. Bladder Retention The condition has improved following the reset of her bladder stimulator, and she has been advised on self-catheterization by her urologist. 6. Intestinal Cramping The patient reports intestinal cramping as the cause of her bowel issues. 7. Blurred Vision The patient experiences blurred vision intermittently, which is being monitored by her neurologist. 8. Muscle Weakness The patient has been gaining weight attributed to muscle mass increase as her muscles recover, and she is on a special diet related to her stiff person syndrome. During the visit, we discussed the management of stiff person syndrome with baclofen and diazepam, and the potential addition of Botox treatment pending approval. We reviewed the patient's atrial fibrillation management with Eliquis and her history of transient ischemic attacks. The patient's arthritis and carpal tunnel syndrome were addressed, noting her ongoing monitoring and past surgeries. We also discussed the improvement in bladder retention following the bladder stimulator reset and the option of self-catheterization. The patient's intestinal cramping and blurred vision were noted, with ongoing monitoring by her neurologist. We addressed her weight gain due to muscle mass increase and her special diet, with a referral to a manager billing for further management. Orders: Referrals [employer] Manager Nutrition Referral E66.3 - Overweight, G25.82 - Stiff-man syndrome Orthopedics Referral M79.641 - Pain in right hand Patient Instructions: - Continue taking baclofen and diazepam as prescribed. - Follow up with neurologist regarding Botox treatment approval. - Continue Eliquis for atrial fibrillation management. - Monitor arthritis symptoms and follow up with hand doctor as needed. - Follow urologist's advice on bladder management and self-catheterization. - Maintain special diet and attend manager billing appointment when scheduled.
== END 2024-12-23 14:19 | disposition home or self-care (01) ==
LOC: HO.HMCSH 13:14
PROVIDERS: PCP Internal Medicine; Visit Provider Physician Assistant Medical
DX: G25.82 Stiff-man syndrome (principal); I48.91 Unspecified atrial fibrillation; M19.90 Unspecified osteoarthritis, unspecified site; G56.00 Carpal tunnel syndrome, unspecified upper limb; R33.9 Retention of urine, unspecified; R10.9 Unspecified abdominal pain; H53.8 Other visual disturbances; M62.81 Muscle weakness (generalized)

== ENCOUNTER → 2024-12-23 13:13 | Outpatient (BNVA) | payer OTHER, MEDICARE, SELFPAY | PROVIDERS: PCP Internal Medicine; Visit Provider Physician Assistant Medical | DX: G25.82 Stiff-man syndrome (principal); I48.91 Unspecified atrial fibrillation; M19.042 Primary osteoarthritis, left hand; M19.041 Primary osteoarthritis, right hand; H53.8 Other visual disturbances; G56.00 Carpal tunnel syndrome, unspecified upper limb; R33.9 Retention of urine, unspecified; R10.9 Unspecified abdominal pain; Z79.01 Long term (current) use of anticoagulants | CPT/HCPCS: 96127; 99212 ==

== ENCOUNTER 2025-01-07 17:49 | Emergency (ER) | payer OTHER, SELFPAY ==
--- NOTE | 2025-01-07 | ECG_ITS ---
Test Reason : WEAKNESS Blood Pressure : */* mmHG Vent. Rate : 76 BPM Atrial Rate : 76 BPM P-R Int : 176 ms QRS Dur : 84 ms QT Int : 380 ms P-R-T Axes : 39 22 43 degrees QTcB Int : 427 ms Sinus rhythm with occasional Premature ventricular complexes Otherwise normal ECG When compared with ECG of 08-Mar-2024 10:53, Nonspecific T wave abnormality now evident in Anterior leads Referred By: Tariq Kimble Electronically Signed By: Clark Hope
--- NOTE | ~2025-01-07 | CT_ITS ---
CLINICAL HISTORY: tingling left side CT head without contrast Comparison: CT/SR - CT HEAD WITHOUT IV CONTRAST STROKE - 03/08/24 10:29 EST Findings: No intra-axial mass, midline shift, hydrocephalus, or acute hemorrhage. No significant atrophy-like change or white matter disease. There is no sinus or mastoid fluid. The orbits are within normal limits. There is no acute fracture. IMPRESSION: 1. No acute intracranial findings. This document has been electronically signed by: Macie Allen MD on 01/07/2025 21:10:23
[2025-01-07 18:04] VITALS: BP 148/80; BP 171/76; PULSE 80; PULSE 82; RESP 16; TEMP 36.5; O2SAT 100; O2SAT 98; BMI 24.9
--- OUTSIDE RECORDS SUMMARY | 2025-01-07 18:31 | XMS_ITS | Clinical Summary ---
Author Organization [address] Address [address] [place] [phone] Care Team Providers Care Car Cooper Name Role Phone No, Pcp (Do Not [...] 05/2021 Penicillins Hives,Other (See Comments),Rash High 07/09/2017 Ubjzmcb-Mrd-Nvq Reductase Inhibitors Other (See Comments) Medium 07/19/2024 [...] 2 tablets Orally Once a day Active ergocalciferol (DRISDOL) 1,250 mcg (50,000 unit) capsule 12/20/19 Active estradioL (CLIMARA) 0.075 mg/24 hr 02/26/20 Active omeprazole (PRILOSEC) 20 mg capsule Active dicyclomine (BENTYL) 10 mg capsule 01/23/20 Active EPINEPHrine 0.3 mg/0.3 mL Inj auto-injector Inject 0.3 mg into the muscle once as needed for anaphylaxis. Active ranolazine (RANEXA) 500 mg 12 hr extended release tablet Take 1 tablet (500 mg total) by mouth 2 (two) times daily. 04/07/20 Active ondansetron (ZOFRAN-ODT) 4 mg disintegrating tablet 1 tablet (4 mg total). Active diazePAM (VALTOCO) 10 mg/spray (0.1 mL) nasal spray Use 1 spray (10 mg total) in one nostril as needed (severe muscle spasm). 4 each 2 09/29/19 25 Active diazePAM (VALIUM) 5 mg tabletIndications: Muscle cramping Take 2 tablets (10mg) in the morning, 2 tablets (10 mg) in the afternoon, then 1 tablet (5mg) in the evening and 1 tablet (5mg) at bedtime, may take another tablet PRN 210 tablet 2 12/31/19 25 Active nitroGLYCERIN (NITROSTAT) 0.[address] 1 tablet under the tongue every 5 minutes if needed for chest pain for up to 3 doses Sublingual Once a day 025 Discontinu ed(!Delete Cleanup (No Cancel Msg)) diazePAM (VALIUM) 5 mg tabletIndications: Muscle cramping Take 2 tablets (10mg) in the morning then 1 tablet (5mg) three times per day after that 120 tablet 3 11/26/19 25 025 Discontinu ed(!Reorde r (No Cancel Msg)) Active Problems Problem Noted Date Diagnosed Date 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 Encounters Date Type Department Care Team Description 01/07/2025 Telephone [facility] [address] [place] [phone] Richard Lewis MD Triage 12/30/2024 Refill [facility] [address] [place] [phone] Richard Lewis MD Medication Problem 12/29/2024 Telephone [facility] [address] [place] [phone] Richard Lewis MD Medication Problem 12/21/2024 1:00 PM EDT Office Visit [facility] [address] [place] [address], [place] [address] Richard Lewis MD Stiff person spectrum disorder (Primary Dx); Muscle cramping; White matter abnormality on MRI of brain 12/09/2024 Telephone [facility] [address] [place] [phone] Richard Lewis MD Triage 11/30/2024 Telephone [facility] [address] [place] [phone] Richard Lewis MD Other 11/25/2024 Telephone [facility] [address] [place] [phone] Richard Lewis MD Other 11/09/2024 Telephone [facility] [address] [place] [phone] Richard Lewis MD Other 10/22/2024 Telephone [facility] [address] [place] [phone] Richard Lewis MD Advice Only 10/20/2024 Scanned Document INTERFACE DEFAULT [address] [place] [phone] System, Provider Not In 10/07/2024 Scanned Document INTERFACE DEFAULT [address] [place] [phone] System, Provider Not In from Last 3 Months Social History Tobacco Use Types Packs/Day Years Used Date Smoking Tobacco: Never Tobacco Cessation:Counseling Given: Not Answered Alcohol Use Standard Drinks/Week Comments Not Currently 0 (1 standard drink = 0.6 oz pur e alcohol) PHQ-2 Answer Date Recorded PHQ-2 Total Score 0 12/21/2024 Interpersonal Safety Answer Date Record ed Is there anyone in your life that is hurting or threatening you in anyway? Not on file 12/21/2024 Physical Indicators of Abuse No evidence of phys ical abuse 12/21/2024 Comments No Sex and Gender Information Value Date Recorded Sex Assigned at Not on file Legal Sex Female 2:58 PM EDT Gender Identity Female 09/23/2023 10:02 AM EDT Sexual Orientation Straight 09/23/2023 10 :02 AM EDT Last Filed Vital Signs Vital Sign Reading Time Taken Comments Blood Pressure 119/70 12/21/2024 12:35 PM EDT Pulse 74 12/21/2024 12:35 PM EDT Temperature 36.9 C (98.4 F) 12/21/2024 12:35 PM EDT Respiratory Rate 20 12/21/2024 12:35 PM EDT Oxygen Saturation 99% 12/21/2024 12:35 PM EDT Inhaled Oxygen Concentration - - Weight 57.6 kg (127 lb) 12/21/2024 12:35 PM EDT Height 160 cm (5' 3 ) 07/19/2024 1:08 PM EDT Body Mass Index 22.5 07/19/2024 1:08 PM EDT Plan of Treatment Upcoming Encounters Date Type Department Care Team (Late st Contact Info) Description 05/31/2025 3:30 PM EST [facility] [address] [place] [phone] Richard Lewis MD [address] [place] [phone] Health Maintenance Due Date Last Done Comments [...] Standard Series) 02/07/2018 12/08/2017 Covid-19 vaccine series (3 - season) 2025 09/14/2021, 12/13/2020 Influenza vaccine 01/03/2025 03/12/2016 RSV Immunization (1 - 1-dose 75+ series) 01/09/2035 Meningococcal B Vaccine Aged Out No l onger eligible based on patient's age to complete this topic Meningococcal Vaccine Aged Out No kamla holly eligible based on patient's age to complete this topic Insurance [facility] [place] [place] [id number] [facility] [place] [id number] [facility] [place] [id number] Care Teams Car Cooper Relationship Specialty Start Date End Date No, Pcp (Do Not Change Name) PCP - General 07/19/24
--- OUTSIDE RECORDS SUMMARY | 2025-01-07 18:31 | XMS_ITS | Encounter Summary ---
Author Organization [facility] Address [address] [place] [phone] Care Team Providers Care Photographic Machine Operator Name Role Phone No, Pcp (Do Not Change Name) Primary Care Provid er Unavailable Encounter Details Date Type Department Care Team (Late st Contact Info) Description 03/26/2024 Scanned Document INTERFACE DEFAULT [address] [place] [phone] System, Provider Not In Social History [...] EST [facility] [address] [place] [phone] Richard Lewis MD [address] [place] [phone] documented as of this encounter Visit Diagnoses Not on filedocumented in this encounter Additional Health Concerns Assessment Noted Time PHQ-9 Depression Total Score: 0 01/27/20 8:26 AM EDT documented as of this encounter Care Teams Photographic Machine Operator Relationship Specialty Start Date End Date No, Pcp (Do Not Change Name) PCP - General 07/19/24 documented as of this encounter
--- OUTSIDE RECORDS SUMMARY | 2025-01-07 18:31 | XMS_ITS | Clinical Summary ---
Author Organization [facility] Address [address] [address] Phone Care Team Providers Care Combination Welder Name Role Phone Gustavo Suarez DO Primary Care Provider [phone] Allergies Active Allergy Reactions Criticality Noted Date [...] formulations. However, I do believe that her office services representative should weigh in on this as well. Therefore, I will send a copy of today's note. Her current dose of estradiol is 0 0.075 mg per 24 hours changed weekly. I cannot find in the chart where her previous dose was but according to the notes it was decreased to this current dose. If her office services representative is in agreement, she will call when [...] this topic Insurance [employer] MCR Adv PPO ([id number]) ) [facility] Open Access [phone]) Care Teams Combination Welder Relationship Specialty Start Date End Date Gustavo Suarez DO [address] [place] [address] PCP - General 05/15/20
--- OUTSIDE RECORDS SUMMARY | 2025-01-07 18:31 | XMS_ITS | Encounter Summary ---
Author Organization [facility] Address [address] [place] [phone] Care Team Providers Care Supervisor Fur Dressing Name Role Phone No, Pcp (Do Not Change Name) Primary Care Provid er Unavailable Encounter Details Date Type Department Care Team (Late st Contact Info) Description 10/07/2024 Scanned Document INTERFACE DEFAULT [address] [place] [phone] System, Provider Not In Social History Tobacco Use Types Packs/Day Years Used Date Smoking Tobacco: Never Alcohol Use Standard Drinks/Week Comments Not Currently 0 (1 standard drink = 0.6 oz pur e alcohol) PHQ-2 Answer Date Recorded PHQ-2 Total Score 0 09/22/2024 Interpersonal Safety Answer Date Record ed Is there anyone in your life that is hurting or threatening you in anyway? Not on file 09/22/2024 Physical Indicators of Abuse No evidence of phys ical abuse 09/22/2024 Comments No Sex and Gender Information Value [...] EST Office Visit [facility] [address] [place] [address] Richard Lewis MD [address] [place] [phone] documented as of this encounter Visit Diagnoses Not on filedocumented in this encounter Additional Health Concerns Assessment Noted Time PHQ-9 Depression Total Score: 0 01/27/20 24 8:26 AM EDT documented as of this encounter Care Teams Supervisor Fur Dressing Relationship Specialty Start Date End Date No, Pcp (Do Not Change Name) PCP - General 07/19/24 documented as of this encounter
--- OUTSIDE RECORDS SUMMARY | 2025-01-07 18:31 | XMS_ITS | Encounter Summary ---
Author Organization [facility] Address [address] [place] [address] Care Team Providers Care Photo Tube Assembler Name Role Phone No, Pcp (Do Not Change Name) Primary Care Provid er Unavailable Encounter Details Date Type Department Care Team (Late st Contact Info) Description 03/08/2024 Scanned Document INTERFACE DEFAULT [address] [place] [address] System, Provider Not In Social History [...] EST Office Visit [facility] [address] [place] [address] Richard Lewis MD [address] [place] [address] documented as of this encounter Procedures Procedure [...] documented as of this encounter Care Teams Photo Tube Assembler Relationship Specialty Start Date End Date No, Pcp (Do Not Change Name) PCP - General 07/19/24 documented as of this encounter
--- OUTSIDE RECORDS SUMMARY | 2025-01-07 18:31 | XMS_ITS | Clinical Summary ---
Author Organization [facility] Address [address] [place] [address] Care Team Providers Care Cyber Transport Systems Specialist Name Role Phone Gustavo Suarez DO Primary Care Provider [phone] Allergies Active Allergy Reactions Criticality Noted Date [...] 5 12/01/2023 Active ergocalciferol (VITAMIN D2) capsule 95578 units Take 1 capsule (50,000 Units total) [...] age to complete this topic Care Teams Cyber Transport Systems Specialist Relationship Specialty Start Date End Date Gustavo Suarez DO [address] [place] [phone] PCP - General Internal Medicine 06/23/18
--- OUTSIDE RECORDS SUMMARY | 2025-01-07 18:31 | XMS_ITS | Encounter Summary ---
Author Organization [facility] Address [address] [place] [phone] Care Team Providers Care Tractor Trailer Technician Name Role Phone No, Pcp (Do Not Change Name) Primary Care Provid er Unavailable Encounter Details Date Type Department Care Team (Late st Contact Info) Description 10/10/2023 Transcribed Orders CARE CENTER SCHEDULING [address] [place] [address] Referral, Self Social History Tobacco [...] Description 05/31/2025 3:30 PM EST Office Visit [facility] [address] [address] Richard Lewis MD [address] [place] [address] documented as of this encounter Visit Diagnoses Not on filedocumented in this encounter Additional Health Concerns Assessment Noted Time PHQ-9 Depression Total Score: 0 09/24/19 24 9:25 AM EDT documented as of this encounter Care Teams Tractor Trailer Technician Relationship Specialty Start Date End Date No, Pcp (Do Not Change Name) PCP - General 07/19/24 documented as of this encounter
--- OUTSIDE RECORDS SUMMARY | 2025-01-07 18:31 | XMS_ITS | Encounter Summary ---
Author Organization [facility] Address [address] [place] [phone] Care Team Providers Care Regional Service Manager Name Role Phone No, Pcp (Do Not Change Name) Primary Care Provid er Unavailable Encounter Details Date Type Department Care Team (Late st Contact Info) Description 08/08/2023 Scanned Document [facility] [address] [place] [phone] Marquita Gallegos MD [address] [place] [phone] Social History Tobacco Use Types Packs/Day [...] EST Office Visit [facility] [address] [place] [phone] Richard Lewis MD [address] [place] [phone] documented as of this encounter Visit Diagnoses Not on filedocumented in this encounter Care Teams Regional Service Manager Relationship Specialty Start Date End Date No, Pcp (Do Not Change Name) PCP - General 07/19/24 documented as of this encounter
--- OUTSIDE RECORDS SUMMARY | 2025-01-07 18:31 | XMS_ITS | Encounter Summary ---
Author Organization [facility] Address [address] [place] [phone] Care Team Providers Care Cell Operation Supervisor Name Role Phone No, Pcp (Do Not Change Name) Primary Care Provid er Unavailable Encounter Details Date Type Department Care Team (Late st Contact Info) Description 09/30/2024 Scanned Document INTERFACE DEFAULT [address] [place] [phone] System, Provider Not In Social History Tobacco [...] EST Office Visit [facility] [address] [place] [address] Richard Lewis MD [address] [place] [phone] documented as of this encounter Visit Diagnoses Not on filedocumented in this encounter Additional Health Concerns Assessment Noted Time PHQ-9 Depression Total Score: 0 01/27/20 24 8:26 AM EDT documented as of this encounter Care Teams Cell Operation Supervisor Relationship Specialty Start Date End Date No, Pcp (Do Not Change Name) PCP - General 07/19/24 documented as of this encounter
--- OUTSIDE RECORDS SUMMARY | 2025-01-07 18:31 | XMS_ITS | Encounter Summary ---
Author Organization [facility] Address [address] [place] [phone] Care Team Providers Care Television Installer Name Role Phone No, Pcp (Do Not Change Name) Primary Care Provid er Unavailable Encounter Details Date Type Department Care Team (Late st Contact Info) Description 10/20/2024 Scanned Document INTERFACE DEFAULT [address] [place] [phone] System, Provider Not In Social History Tobacco [...] EST Office Visit [facility] [address] [place] [address] Richard Lewis MD [address] [place] [phone] documented as of this encounter Visit Diagnoses Not on filedocumented in this encounter Additional Health Concerns Assessment Noted Time PHQ-9 Depression Total Score: 0 01/27/20 24 8:26 AM EDT documented as of this encounter Care Teams Television Installer Relationship Specialty Start Date End Date No, Pcp (Do Not Change Name) PCP - General 07/19/24 documented as of this encounter
--- OUTSIDE RECORDS SUMMARY | 2025-01-07 18:31 | XMS_ITS | Encounter Summary ---
Author Organization [facility] Address [address] [place] [phone] Care Team Providers Care Blocker Metal Base Name Role Phone No, Pcp (Do Not Change Name) Primary Care Provid er Unavailable Reason for Visit * Reason Onset Date Comments Triage 10/10/2023 Encounter Details Date Type Department Care Team (Late st Contact Info) Description 10/10/2023 Telephone [facility] [address] [place] [address] Richard Lewis MD [address] [place] [phone] Triage Social History Tobacco Use Types Packs/Day [...] being worked up for [facility] at the [facility] and was scheduled to start on Ocrevus in 10/2021. 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 She needed to go to rehab after this event as she required a wheelchair. She occasionally experiences blurry vision but follows regularly with her workforce development program director. * Telephone Encounter - Katarina Handy - 10/10/2023 11:04 AM EDT Copied from [facility] #[id number]. Topic: General Message - [facility] >> Oct 10, 2023 11:00 AM Katarina Shukla wrote: [facility] MESSAGE Time of [...] urgently? no Best telephone number for callback: [phone] Best time to return call: any Permission to leave message: yes Katarina Handy CARE Center Market Reporter documented in this encounter Plan of Treatment Upcoming Encounters Date Type Department Care Team (Late st Contact Info) Description 05/31/2025 3:30 PM EST Office Visit [facility] [address] [address] Richard Lewis MD [address] [place] [address] documented as of this encounter Visit Diagnoses Not on filedocumented in this encounter Additional Health Concerns Assessment Noted Time PHQ-9 Depression Total Score: 0 09/24/19 24 9:25 AM EDT documented as of this encounter Care Teams Blocker Metal Base Relationship Specialty Start Date End Date No, Pcp (Do Not Change Name) PCP - General 07/19/24 documented as of this encounter
--- OUTSIDE RECORDS SUMMARY | 2025-01-07 18:32 | XMS_ITS | Clinical Summary ---
Author Organization [facility] Address [address] [address] Phone Care Team Providers Care Bar Captain Name Role Phone Clarence Leiva MD Primary Care Provider [phone] Allergies Active Allergy Reactions Criticality Noted Date [...] CAD (coronary artery disease) 06/09/2024 Non-ST elevation LA (NSTEMI) ([facility] V24, [facility]/ [facility] V28) 06/09/2024 Dizziness 04/14/2024 Assessment & [...] this time she is working with a visual stylist and will continue to work on dietary adjustments, alternative therapies may be readdressed at her next visit. I have reviewed with the patient the importance of a heart healthy lifestyle which includes eating a low-fat low-salt diet, getting regular exercise, maintaining a healthy weight, not smoking, and following up with routine medical care. PAF (paroxysmal atrial fibri llation) ([facility] V24, [facility] V28) 03/10/2024 Assessment & Plan (04/14/2024 [...] 03/10/2024 Cervical stenosis of spinal canal 06/18/2022 Surgical History Surgery Date Site/Laterality Comments OTHER SURGICAL HISTORY PROCEDURE:pvc abalation TOTAL KNEE ARTHROPLASTY Right PROCEDURE:REPLACEMENT TOTAL KNEE BUNIONECTOMY PROCEDURE:BUNIONECTOMY DISC REMOVAL PROCEDURE:DISC REMOVAL SHOULDER SURGERY PROCEDURE:SHOULDER SURGERY OTHER SURGICAL HISTORY PROCEDURE:thumb surgery APPENDECTOMY PROCEDURE:APPENDECTOMY TONSILLECTOMY PROCEDURE:TONSILLECTOMY Medical History Medical History Date Comments Hypertension DX:Hypertension A-fib (CMS/HCC V24, CMS/HCC V28) DX:A-fib ([facility]) Cardiac microvascular disease DX :Cardiac microvascular [...] 04/12/2022 Social Influencers of Health Screening 04/12/2022 Depression Screening 05/05/2024 COVID-19 Vaccine (3 - 2024-2 6 season) 2025 09/14/2021, 12/13/2020 Influenza Vaccine (#1) 2025 03/12/2016 Hypertension/CHF/CAD Annual [...] mmol/L LAB CHEMISTRY METHOD 04/05/2024 3:28 PM [facility] Potassium 3.8 3.5 - 5.5 mmol/L LAB CHEMISTRY METHOD 04/05/2024 3:28 PM [facility] Chloride 111(H) 96 - 110 mmol/L LAB CHEMISTRY METHOD 04/05/2024 3:28 PM [facility] CO2 26 21 - 32 mmol/L LAB CHEMISTRY METHOD 04/05/2024 3:28 PM [facility] Anion Gap 8 3 - 11 LAB CHEMISTRY METHOD 04/05/2024 3:28 PM [facility] Glucose 84 70 - 100 mg/dL LAB CHEMISTRY METHOD 04/05/2024 3:28 PM [facility] BUN 9 5 - 25 mg/dL LAB CHEMISTRY METHOD 04/05/2024 3:28 PM [facility] Creatinine 0.63 0.50 - 1.10 mg/dL LAB CHEMISTRY METHOD 04/05/2024 3:28 PM [facility] eGFR 99 >=60 mL/min/1. 73m2 LAB CHEMISTRY METHOD 04/05/2024 3:28 PM [facility] Comment:Calculation based on the Chronic Kidney Disease Epidemiology Collaboration (CKD-EPI) equation refit without adjustment for race. BUN/Creatinine Ratio 14.3 LAB CHEMISTRY METHOD 04/05/2024 3:28 PM [facility] Calcium 9.5 8.5 - 10.5 mg/dL LAB CHEMISTRY METHOD 04/05/2024 3:28 PM [facility] AST (SGOT) 24 10 - 42 unit/L LAB CHEMISTRY METHOD 04/05/2024 3:28 PM [facility] ALT (SGPT) 19 10 - 60 unit/L LAB CHEMISTRY METHOD 04/05/2024 3:28 PM [facility] Alkaline Phosphatase 65 42 - 121 unit/L LAB CHEMISTRY METHOD 04/05/2024 3:28 PM EST [facility] Total Protein 6.6 6.0 - 8.0 g/dL LAB CHEMISTRY METHOD 04/05/2024 3:28 PM EST [facility] Albumin 3.7 3.2 - 5.0 g/dL LAB CHEMISTRY METHOD 04/05/2024 3:28 PM EST [facility] Total Bilirubin 0.6 0.0 - 1.4 mg/dL LAB CHEMISTRY METHOD 04/05/2024 3:28 PM EST [facility] Blood Venous blood specimen / Unknown Venipuncture / Unknown 04/05/2024 2:46 PM EST 04/05/2024 2:59 PM EST us Enrique Moyer MD LAB BLOOD ORDERABLES Final Result [facility] [address] [place] [address], from Last 3 Months or Most Recently Relevant to Health Maintenance Insurance [employer] MEDICARE ADVANTAGE [facility] Advance Directives Documents on File Type Date Recorded Patient Teacher Ballet Expl anation Health Care Decision (hx) 02/15/2022 AD SPAULDING DIRECTIVE Health Care Decision (hx) 02/15/2022 AD SPAULDING DIRECTIVE Health Care Decision (hx) 02/15/2022 AD SPAULDING DIRECTIVE Care Teams Bar Captain Relationship Specialty Start Date End Date Clarence Leiva MD [facility] [address] [place] [address] [address] [place] [address] PCP - General Internal Medicine 08/02/24
--- OUTSIDE RECORDS SUMMARY | 2025-01-07 18:32 | XMS_ITS | Clinical Summary ---
Author Organization [facility] Address [address] [place] [address] Care Team Providers Care Site Project Manager Name Role Phone Gustavo Suarez Primary [...] 2) 02/02/2018 12/08/2017 Mammogram 08/12/2018 08/12/2016, 05/25/2015 Alcohol/Substance Use Screening 05/05/2024 Depression Screening and Follow-Up 05/05/2024 Social Drivers of Health Annual Screening 05/05/2024 COVID-19 Vaccine (3 - 2024-2 6 season) 2025 09/14/2021, 12/13/2020 Influenza Vaccine (#1) 2025 03/12/2016 RSV Vaccine (60+ years old a nd patients) (1 - 1-dose 75+ series) 01/09/2035 Hepatitis B Vaccines Aged Out No long er eligible based on patient's age to complete this topic Insurance [facility] A[employer] MCR * Guarantor: DANIELLE NUGENT Account Type Relation to Patient Date of Phone Billing Address Personal/Family 1960 Care Teams Site Project Manager Relationship Specialty Start Date End Date Gustavo Suarez [address] [place] [phone] PCP - General Internal Medicine 11/13/22
--- OUTSIDE RECORDS SUMMARY | 2025-01-07 18:32 | XMS_ITS | Clinical Summary ---
Author Organization [facility] Address [address] [place] [phone] Phone Care Team Providers Care Sprinkler Tender Name Role Phone Gustavo Suarez DO Primary Care Provider Ellie Kan PA Unavailable [phone] Allergies Active Allergy Reactions Criticality Noted Date [...] MG tablet Take 20 mg by mouth. Active apixaban (ELIQUIS) 5 mg tablet Take by mouth. 2 Active baclofen (LIORESAL) 10 MG tablet Take 20 mg by mouth. 2 Active ergocalciferol (VITAMIN D2) 50,000 unit capsule Take 50,000 Int'l Units by mouth. 2 Active docusate sodium (COLACE) 100 MG capsule Take 100 mg by mouth 2 (two) times a day. 3 Active LORazepam (ATIVAN) 2 MG tablet Take 2 mg by mouth every 6 (six) hours as needed. Active estradioL (CLIMARA) 0.075 mg/24 hrIndications:M enopausal syndrome Place 1 patch onto the skin once a week. 12 patch 3 5 Active diazePAM (VALIUM) 5 MG tablet Take 5 mg by mouth 3 (three) times a day. Active dicyclomine (BENTYL) 10 MG capsule Take 10 mg by mouth 4 (four) times a day before meals and nightly. Active ranolazine (RANEXA) 500 MG 12 hr tablet Take 500 mg by mouth 2 (two) times a day. 4 Active valACYclovir (VALTREX) 500 MG tabletIndicatio ns:History of herpes genitalis Take 1 tablet (500 mg total) by mouth 2 (two) times a day. 180 tablet 1 5 Active valACYclovir (VALTREX) 500 MG tabletIndicatio ns:History of herpes genitalis TAKE 1 TABLET(500 MG) BY MOUTH TWICE DAILY 180 tablet 1 4 12/23/19 25 Discontinu ed(Reorder ) Active Problems Problem Noted Date Diagnosed Date [...] that she has discussed this with her lumber yard worker who thought that it was reasonable to continue with the estradiol patch. She is on an anticoagulant which would decrease the risk of stroke associated with the VTE. I will see if I can contact her lumber yard worker for some further guidance and also do [...] formulations. However, I do believe that her lumber yard worker should weigh in on this as well. Therefore, I will send a copy of today's note. Her current dose of estradiol is 0 0.075 mg per 24 hours changed weekly. I cannot find in the chart where her previous dose was but according to the notes it was decreased to this current dose. If her lumber yard worker is in agreement, she will call when she needs a refill. Resolved Problems Problem Noted Date Diagnosed Date Resolved Date Cyst of right ovary 07/14/2024 07/15/19 25 Overview (07/14/2024): 3 small follicles July 2023 each < 1cm, stable or smaller than 2023 Assessment & Plan (07/14/2024 6:26 PM EDT): No need for ongoing imaging Encounters Date Type Department Care Team Description 12/22/2024 Refill [facility] [address] [place] [address] [place] [address] Valeria Villalobos, NIKKO Medication Refill (Refill fro Valacyclovir/) from Last 3 Months Family History Medical History Relation Comments Dementia [...] 2) 02/02/2018 12/08/2017 DEPRESSION SCREENING 01/14/2023 01/14/2022 INFLUENZA VACCINE (#1) 2024 03/12/2016 COVID-19 VACCINE (3 - 2024-2 6 season) 2025 09/14/2021, 12/13/2020 SMOKING Hx and SMOKELESS TOBACCO [...] Maintenance Insurance MEDICARE PART A & B AET[employer] PPO MEDICARE REPLACEMENT [facility] MEDICARE PART A & B AETNA PPO MEDICARE REPLACEMENT [employer]PA MEDICARE PART A & B [employer] PPO [place] [id number] MEDICARE PART A & B [facility] [place] [id number] MEDICARE PART A & B [facility] MEDICARE REPLACEMENT CIGNA TPA Elie PEREIRA CHELSEAShailesh PANKAJ [id number] MEDICARE PART A & B [employer] PPO [place] [address] MEDICARE PART A & B [employer] PPO MEDICARE [place] [address] MEDICARE PART A & B [employer] PPO MEDICARE REPLACEMENT [place] [address] MEDICARE PART A & B [employer] PPO MEDICARE REPLACEMENT [employer] TPA Care Teams Sprinkler Tender Relationship Specialty Start Date End Date Gustavo Suarez DO [address] [place] [phone] PCP - General Internal Medicine 02/16/18 Ellie Kan PA [address] [place] [address] Physician Forestry Worker 07/14/24 Additional Source Comments The information contained in this document represents components of the legal health record. It is not the complete legal health record.[facility]
--- OUTSIDE RECORDS SUMMARY | 2025-01-07 18:32 | XMS_ITS | Encounter Summary ---
Author Organization [facility] Address [address] [place] [address] Care Team Providers Care Economics Department Chair Name Role Phone No, Pcp (Do Not Change Name) Primary Care Provid er Unavailable Reason for Referral * Physical Medicine (Routine) - New Request Specialty Diagnoses / Procedures Referred By Maria Isabel shahid Referred To Contact Physical Therapy Diagnoses Weakness Muscle spasm Richard Lewis MD [address] [place] [address] Phone: tel: fax: Referral ID Status Reason Start Date Expiration Date Visits Requested Visits Authorized [id number] New Request Specialty Services Required 07/26/2024 07/26/2025 1 1 Reason for Visit * Reason Onset Date Comments Triage 07/26/2024 Increased muscle spasms Encounter Details Date Type Department Care Team (Late st Contact Info) Description 07/26/2024 Telephone [facility] [address] [address] Richard Lewis MD [address] [place] [address] Triage (Increased muscle spasms ) [...] EST Office Visit [facility] [address] [place] [address] Richard Lewis MD [address] [place] [address] Scheduled Referrals Name Type Priority [...] documented as of this encounter Care Teams Economics Department Chair Relationship Specialty Start Date End Date No, Pcp (Do Not Change Name) PCP - General 07/19/24 documented as of this encounter
--- OUTSIDE RECORDS SUMMARY | 2025-01-07 18:32 | XMS_ITS | Encounter Summary ---
Author Organization [facility] Address [address] [place] [phone] Care Team Providers Care Property Administrator Name Role Phone No, Pcp (Do Not Change Name) Primary Care Provid er Unavailable Encounter Details Date Type Department Care Team (Late st Contact Info) Description 06/09/2024 Scanned Document INTERFACE DEFAULT [address] [place] [address] System, Provider Not In Social History [...] EST Office Visit [facility] [address] [place] [address] Richard Lewis MD [address] [place] [address] documented as of this encounter Visit Diagnoses Not on filedocumented in this encounter Additional Health Concerns Assessment Noted Time PHQ-9 Depression Total Score: 0 01/27/20 8:26 AM EDT documented as of this encounter Care Teams Property Administrator Relationship Specialty Start Date End Date No, Pcp (Do Not Change Name) PCP - General 07/19/24 documented as of this encounter
--- OUTSIDE RECORDS SUMMARY | 2025-01-07 18:32 | XMS_ITS | Encounter Summary ---
Author Organization [facility] and [facility] Address [address] [place] [phone] Care Team Providers Care Cardiothoracic Physiotherapist Name Role Phone No, Pcp (Do Not Change Name) Primary Care Provid er Unavailable Encounter Details Date Type Department Care Team (Late st Contact Info) Description 09/24/2024 Documentation [facility] [address] [place] [phone] Richard Lewis MD [address] [place] [phone] Social History Tobacco Use Types Packs/Day Years [...] Office Visit [facility] 2nd Floor [place], [place] [phone] Richard Lewis MD [address] [place] [phone] documented as of this encounter Visit Diagnoses Not on filedocumented in this encounter Additional Health Concerns Assessment Noted Time PHQ-9 Depression Total Score: 0 01/27/20 8:26 AM EDT documented as of this encounter Care Teams Cardiothoracic Physiotherapist Relationship Specialty Start Date End Date No, Pcp (Do Not Change Name) PCP - General 07/19/24 documented as of this encounter
--- OUTSIDE RECORDS SUMMARY | 2025-01-07 18:32 | XMS_ITS | Encounter Summary ---
Author Organization [facility] and [facility] Address [address] [place] [phone] Care Team Providers Care Catastrophe Claims Supervisor Name Role Phone No, Pcp (Do Not Change Name) Primary Care Provid er Unavailable Reason for Visit * Reason Onset Date Comments Triage 09/29/2024 ? Medication den ial Encounter Details Date Type Department Care Team (Late st Contact Info) Description 09/29/2024 Telephone [facility] [address] [facility] [address] [place] [address] Richard Lewis MD [address] [place] [address] Triage (? Medication denial ) Social History Tobacco Use Types Packs/Day [...] Telephone Encounter - Peggy Tinoco RN - 09/29/2024 10:56 AM EDT Called and lvm for pt on unidentified line asking for return call. Office number provided for return call. * Telephone Encounter - Zonia Callejas PCT - 09/29/2024 10:53 AM EDT Pt. Called to inform she received a denial letter from [employer]. Please call her to discuss documented in this encounter Plan of Treatment Upcoming Encounters Date Type Department Care Team (Late st Contact Info) Description 05/31/2025 3:30 PM EST Office Visit [facility] [address] [place] [address] [phone] Richard Lewis MD [address] [place] [phone] documented as of this encounter Visit Diagnoses Not on filedocumented in this encounter Additional Health Concerns Assessment Noted Time PHQ-9 Depression Total Score: 0 01/27/20 24 8:26 AM EDT documented as of this encounter Care Teams Catastrophe Claims Supervisor Relationship Specialty Start Date End Date No, Pcp (Do Not Change Name) PCP - General 07/19/24 documented as of this encounter
--- OUTSIDE RECORDS SUMMARY | 2025-01-07 18:32 | XMS_ITS | Encounter Summary ---
Author Organization [facility] Address [address] [place] [phone] Phone Care Team Providers Care Poultry Cutter Name Role Phone Daniela Gustavo Denise BOYD Primary Care Provider [phone] Ellie Kan PA Unavailable [phone] Reason for Visit * Reason Onset Date Comments Rx to different pharmacy 03/08/2020 Encounter Details Date Type Department Care Team (Late st Contact Info) Description 03/08/2020 Telephone [facility] [address] [place] [address] Gustavo Noe MD [address] [place] [address] Rx to different pharmacy Social History Tobacco Use Types Packs/Day Years Used Date Smoking Tobacco: Former Cigarettes Q uit: 1992 Smokeless Tobacco: Never Alcohol Use Standard Drinks/Week Comments Not Currently 0 (1 standard drink = 0.6 oz pur e alcohol) weekly Comments No Sex and Gender Information Value Date Recorded Sex Assigned at Female 11/20/2022 12:48 PM EDT Legal Sex Female 9:16 AM EDT Gender Identity Female 11/20/2022 12:48 PM EDT Sexual Orientation Straight 11/20/2022 12 :48 PM EDT documented as of this encounter Progress Notes * Rajani Curry LPN - 03/08/2020 1:27 PM EST Rx sent in error to last listed pharmacy [facility], rx and new pharmacy reloaded, to Dr. Noe * Nan Kessler - 03/08/2020 1:22 PM EST T/c from pt stating rx for patch should go to [facility] [facility] - documented in this encounter Plan of Treatment Not on file documented as of this encounter Visit Diagnoses Diagnosis Menopausal syndrome- Primary Symptomatic menopausal or female climacteric states documented in this encounter Care Teams Poultry Cutter Relationship Specialty Start Date End Date Gustavo Suarez DO [address] [place] [phone] PCP - General Internal Medicine 02/16/18 Ellie Kan PA [address] [place] [phone] Physician Body Worker 07/14/24 documented as of this encounter Additional Source Comments The information contained in this document represents components of the legal health record. It is not the complete legal health record.[facility]
--- OUTSIDE RECORDS SUMMARY | 2025-01-07 18:32 | XMS_ITS | Continuity of Care Document ---
Author Organization [facility] [address] [facility] [address] [place] [address] Phone [phone] Care Team Providers Care Flood Control Engineer Name Role Phone Gustavo Suarez M.D. Care Team Information Recei yadira [phone] Clarence Leiva MD Care Team Information R eceiver [phone] Problems Active Problems Provider Date Multinodular goiter [...] End: Unknown Patient is a former smoker Allergies and adverse reactions Active Allergies Criticality Reaction Severity Comments Date Penicillins Unable to assess criticality 12/12/2022 Medications Active Medications SIG Qnty Indications Order ing Provider Date Estradiol0.075mg/24HR Patches Weekly Apply 1 Patch Once A Week Unknown [id number] Tablets Take 1 Tablet By Mouth Twice Daily as Needed For Muscle Spasm Krystina Mendez, [employer] Krewwfsxw1lh Tablets Take half hs Unknow n Vitamin D (Ergocalciferol)1.25mg (87946 Ut) Capsules Take 1 Capsule By Mouth every other week Unknown [id number] Capsules DR Take 1 Capsule By Mouth Every Day 30 Minutes Before Breakfast Gustavo Suarez M.D. Uydifnxytb195li Tablets 300mg am, 300mg 2pm, 1200mg 8pm Unknown Mmgpkvu6uh Tablets Take 1 Tablet By Mouth Twice Daily Linda Astudillo MD Lamotrigine [id number] Tablets ER 24HR Take 2 Tablets By Mouth Every Day Unknown Methylphenidate WRW09yo Tablets Take 1 Tablet By Mouth Three Times Daily prn Unknown Valacyclovir GDM301sb Tablets Unknown Tizanidine HCL2mg Tablets Unknown Dicyclomine ERR04gl Capsules Take 1 Capsule By Mouth Four [...] 77 TSH With Reflex To FT4 12/12/2022 [facility] TSH With Reflex To FT4 0.33 uIU/mL Low (0.4-4. 2) Anti Thyroid Peroxidase AB 12/12/2022 [facility] Anti Thyroid Peroxidase AB <3.0 IU/mL (<5.6) 1 25Oh Vitamin D 12/12/2022 [facility] 25Oh Vitamin D 50.0 NG/ML (20-50) Free T4 12/12/2022 [facility] Free T4 0.90 ng/dL (0.70-1 .80) 1 Antibody measurement represents one parameter in a multicriteria diagnostic process. Correlate results with clinical presentation. This test was performed on the [employer] immunoassay system. Medical Devices Description No Information [...]
--- OUTSIDE RECORDS SUMMARY | 2025-01-07 18:32 | XMS_ITS | Encounter Summary ---
Author Organization [facility] and [facility] Address [address] [place] [phone] Care Team Providers Care Tubing Supervisor Name Role Phone No, Pcp (Do Not Change Name) Primary Care Provid er Unavailable Reason for Visit * Reason Onset Date Comments Triage 01/07/2025 Encounter Details Date Type Department Care Team (Late st Contact Info) Description 01/07/2025 Telephone [facility] [address] [place] [address] Richard Lewis MD [address] [place] [phone] Triage Social History Tobacco Use Types Packs/Day [...] Telephone Encounter - Peggy Tinoco RN - 01/07/2025 10:30 AM EDT Called and spoke with patient. Pt reports that for the past few days she is not feeling right. She reports she is more confused, fatigued, and can't stay awake, she reports she is falling alseep withfood in her mouth, she can remember if she takes medications even though she has alarms. Pt reportsthat her left side feels very strange, she has a knot in the upper muscle- not painful, she reports numbness in her left toes, her left fingers, L hip. She reports this tingling sensation that goes through the left side of her face and through her eye. She reports she feels cross eyed. Pt is taking 20 mg of baclofen every 2 hours. Pt is taking of valium. Please advise * Telephone Encounter - Lianne Palomo PCT - 01/07/2025 9:57 AM EDT Patient stated that she is not feeling well. She feels different on her left side. documented in this encounter Plan of Treatment Upcoming Encounters Date Type Department Care Team (Late st Contact Info) Description 05/31/2025 3:30 PM EST Office Visit [facility] [address] [place] [phone] Richard Lewis MD [address] [place] [address] documented as of this encounter Visit Diagnoses Not on filedocumented in this encounter Additional Health Concerns Assessment Noted Time PHQ-9 Depression Total Score: 0 01/27/20 24 8:26 AM EDT documented as of this encounter Care Teams Tubing Supervisor Relationship Specialty Start Date End Date No, Pcp (Do Not Change Name) PCP - General 07/19/24 documented as of this encounter
--- NOTE | 2025-01-07 18:43 | PC.NURSE ---
Pt reports feeling foggy today; equal smile, ROM/strength all extremities; speech clear; pt A+OX3 at this time; pt denies dizziness/CP; IV accesss established; pt reports severe allergy to adhesive so skin prep used under IV tegaderm and under paper heart monitor stickers; EKG being completed at this time
[2025-01-07 18:46] LABS: Hematocrit 33.4 % (37.0-47.0); Hemoglobin 12.0 g/dl (12.0-16.0); Imm Gran Abs Auto 0.00 X10*3/uL (0.00-0.03); Imm Gran Pct Auto 0.0 % (0.0-0.4); Lymphocytes Absolute Auto 1.5 X10*3/uL (1.2-4.9); MANUAL DIFF FLAG NO; Mean Corpuscular HGB Conc 35.9 g/dl (31.0-35.0); Mean Corpuscular Hemoglobin 31.9 pg (27.0-33.0); Mean Corpuscular Volume 88.8 fL (80.0-98.0); NRBC Abs Auto 0.000 X10*3/uL (0.0-0.012); NRBC Pct Auto 0.0 /100WBC (0.0-0.2); Platelet Count 304 X10*3/uL (160-400); Red Blood Count 3.76 X10*6/uL (4.20-5.50); White Blood Count 3.1 X10*3/uL (4.8-10.8)
[2025-01-07 19:00] LABS: Alanine Aminotransferase 13 U/L (0-31); Albumin Level 4.0 g/dL (3.5-5.0); Alkaline Phosphatase 63 U/L (39-117); Anion Gap 10 (12-20); Aspartate Amino Transferase 31 U/L (5-31); Blood Urea Nitrogen 11 mg/dL (9-16); Calcium 8.9 mg/dL (8.4-10.2); Carbon Dioxide 25 mmol/L (22-29); Chloride 109 mmol/L (96-108); Creatinine Clr Calc Pharmacy 71.2; Estimated Glomerular Filt Rate > 60; Potassium 3.9 mmol/L (3.3-5.1); Sodium 140 mmol/L (135-145); Total Protein 7.8 g/dL (6.5-8.0)
--- NOTE | 2025-01-07 19:01 | ED.GENADULT ---
HPI - General Adult General Chief complaint: General Medical Stated complaint: L side tingling x8hrs , weakness Time Seen by Provider: 01/07/25 19:42 Source: patient and RN notes reviewed Mode of arrival: ambulatory Limitations: no limitations History of Present Illness ED Provider: Lamin HPI narrative: 64-year-old female with past medical history significant for ?stiff-person syndrome, atrial fibrillation on Eliquis, neurogenic bladder, history of TIA, coronary artery spasm, chronic headaches, presenting for evaluation of multiple complaints. She reports for the last 2 days she has had increasing weakness and fatigue pain She reports that this morning she felt as though she could not get out of bed and slept through her alarms. Around 9 o'clock she noticed tingling to the left side of her face and her left arm and foot. She called her doctor who felt she should be evaluated to be ruled out for a CVA or TIA. She reports that her neurologist felt as though she was taking too much sedatives including baclofen and diazepam. The patient had up until this morning been taking baclofen 20 milligrams q.4 hours as well as diazepam 10 milligrams b.i.d.. She was told to decrease her baclofen to 20 milligrams Q 8 hours starting today. The patient reports that she does feel better currently but still feels weak and fatigued She denies any difficulty with speaking, slurred speech Related Data Home Medications ?Medication ?Instructions ?Recorded ?Confirmed estradiol 0.075 mg/24 hr weekly 1 patch transdermal WE@0900 08/14/22 12/23/24 transdermal patch gabapentin 600 mg tablet 1,200 mg PO DAILY@1900 08/14/22 12/23/24 lamotrigine 200 mg tablet,extended 400 mg PO DAILY 11/20/22 12/23/24 release 24 hr ergocalciferol (vitamin D2) 1,250 1,250 mcg PO Q2W 12/15/22 12/23/24 mcg (50,000 unit) capsule apixaban 5 mg tablet (Eliquis) 5 mg PO BID 06/23/24 12/23/24 dicyclomine 10 mg capsule 10 mg PO QID 06/23/24 12/23/24 miscellaneous medical supply ea miscellaneous 08/19/24 12/23/24 immune globu G 5 gram/50 mL(10 ml IV 11/19/24 12/23/24 %)-gly-IgA ave 46 mcg/mL injection soln (Gamunex-C) diazepam 10 mg/spray (0.1 mL) mg intranasal muscle spasm 12/23/24 12/23/24 nasal spray (Valtoco) diazepam 5 mg tablet 10 mg PO BID PRN 12/23/24 12/23/24 diazepam 5 mg tablet (Valium) 5 mg PO BID PRN 12/23/24 12/23/24 immune glob G 20 gram/200 ml IV 12/23/24 12/23/24 mL(10%)-gly-IgA ave 46 mcg/mL injection soln (Gamunex-C) Previous Rx's ?Medication ?Instructions ?Recorded rollator #1 ea 12/23/22 epinephrine 0.3 mg/0.3 mL 0.3 mg (0.3 mL) IM Q10M PRN 06/23/24 injection, auto-injector anaphylaxis #2 ea Portable Mobility Bed rail #2 ea 08/20/24 baclofen 20 mg tablet 20 mg PO Q4H muscle spasm 90 days 09/24/24 #540 tabs omeprazole 20 mg capsule,delayed 20 mg PO BID 90 days #180 caps 09/29/24 release ranolazine 500 mg tablet,extended 500 mg PO BID #180 tabs 12/29/24 release,12 hr Allergies Allergy/AdvReac Type Severity Reaction Status Date / Time Beta-Blockers Allergy Mild blood Verified 01/07/25 18:07 (Beta-Adrenergic Bloc pressure drop house dust Allergy Mild Anaphylaxis Verified 01/07/25 18:07 penicillin G (Penicillin G) Allergy Mild RASH Verified 01/07/25 18:07 penicillin V Allergy Unknown Abdominal Verified 01/07/25 18:07 Pain adhesive Allergy Blister Verified 01/07/25 18:07 mold Allergy Headache Verified 01/07/25 18:07 [id number]-[id number] Reductase Allergy Weakness Verified 01/07/25 18:07 Inhibitor codeine (Codeine) AdvReac Mild SEVERE Verified 01/07/25 18:07 ABDOMINAL PAIN Review of Systems Constitutional: Constitutional: Denies body ache(s), Denies chills, Reports fatigue, Denies fever(s), Denies headache(s), Reports lethargy, Reports malaise and Reports weakness Eyes: Eyes: Denies blurry vision ENT: Denies headache(s) Cardiovascular: Cardiovascular: Denies chest pain, Denies chest pain at rest and Denies dyspnea on exertion Respiratory: Respiratory: Denies cough and Denies dyspnea on exertion Gastrointestinal: Gastrointestinal: Denies abdominal pain, Denies nausea and Denies vomiting Musculoskeletal: Musculoskeletal: Denies back pain, Denies arthralgias, Denies joint swelling, Denies limited range of motion, Reports numbness and Reports stiffness Neurologic: Denies Neuro-related abnormal movements, Denies Abnormal speech present, Denies headache(s), Reports numbness and Reports weakness Psychiatric: Psychiatric: Denies anxiety Endocrine: Endocrine: Reports fatigue [facility] Past Medical History Medical History (Updated 01/07/25 @ 21:24 by Tariq Kimble) Muscle weakness Blurry vision Intestinal cramps Bladder retention Carpal tunnel syndrome Right hand pain Overweight (BMI 25.0-29.9) Intermittent palpitations Neurogenic bladder History of mammogram (~2022) Ataxia Coronary artery spasm Coronary artery anomaly Hair loss Hemorrhoids Diverticulosis Tubular adenoma Eczema Fibrocystic breast disease Herpes simplex Hypersomnia Witnessed apneic spells Arthritis Difficulty swallowing Weakness On anticoagulant therapy Lumbar spondylosis Spinal stenosis in cervical region Restless legs syndrome (RLS) Anemia Fatigue Cervical spondylosis Anxiety Bipolar disease, manic Occasional tremors Obstructive sleep apnea Insomnia GERD (gastroesophageal reflux disease) Cardiac microvascular disease TIA (transient ischemic attack) Atrial fibrillation Cardiomyopathy Surgical History H/O cervical discectomy History of partial hysterectomy History of tonsillectomy Hx of hand surgery History of radiofrequency ablation procedure for cardiac arrhythmia History of esophagogastroduodenoscopy (EGD) H/O colonoscopy (~10/05/20) H/O radiofrequency ablation (RFA) of nerve of lumbar spine Hx of cervical spine surgery Hx of shoulder surgery H/O: knee surgery Hx of cholecystectomy History of carpal tunnel release Hx of appendectomy Family History Family History Father Dementia Cancer Mother Cancer COPD (chronic obstructive pulmonary disease) Multiple sclerosis Daughter Myasthenia Social History Social History Household Members: Significant Other Housing: House Are you a primary career transition specialist to a significant other at home: No Do you presently have visiting nurse 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, [employer]) Alcohol intake: current Alcohol intake frequency: does not drink Patient Tobacco Use Status: Former Tobacco user Advance Directives: Yes Advance Directives on File: Yes Advance Directives Date on File: 04/10/23 service: No Current occupational status: disabled Cognitive needs: Yes (cane ) Hearing needs: No Vision needs: Yes (rx glasses) Physical Exam ED Vital Signs: Vital Signs - 24 hr 01/07/25 18:04 01/07/25 19:02 01/07/25 20:28 Temperature 97.7 F 98.1 F Pulse Rate 80 69 66 Respiratory Rate 16 16 Blood Pressure 171/76 H 151/79 H 140/70 H Pulse Oximetry 100 99 Oxygen Delivery Method Room Air Room Air BMI result Body Mass Index 24.9 Const General: healthy appearing, comfortable, no acute distress, alert and awake Nutritional Appearance: well nourished Orientation/consciousness: patient oriented x3 HENMT Head: Yes normocephalic and Yes atraumatic Eyes Eyelids: Yes eyelids normal Conjunctivae: conjunctivae normal Sclerae: sclerae normal Corneas: corneas normal Pupils: Equal, round and reactive pupils present EOM: EOMs intact bilaterally Neck Neck: Yes full ROM Resp Effort & Inspection: normal respiratory effort, able to speak in complete sentences and not labored GI Inspection: No distended Palpation (GI): Soft to palpation, not firm, nontender, no guarding and not rigid Skin General skin exam: elasticity normal Neuro Other: Patient has 3/5 strength to major muscle groups of the lower extremities bilaterally. However, 5/5 strength with dorsiflexion and plantar flexion of the toes bilaterally Md [facility] strength is 5/5 bilaterally General: patient oriented x3 Cranial nerves: Yes CN's II-XII intact bilaterally, Yes Equal, round and reactive pupils present, Yes Bilaterally intact EOM present and Yes Nystagmus not present Cognition (Neuro): normal cognition Speech: No Abnormal speech present Motor exam (neuro): strength not 5/5 throughout and no fasciculations noted Extrem Other: Moving all extremities well without any obvious deformities Medications Administered Discontinued Medications Generic Name Dose Route Start Last Admin Trade Name Freq PRN Reason Stop Dose Admin Diazepam 10 mg 01/07/25 18:59 01/07/25 19:12 Diazepam 5 Mg Tablet PO 01/07/25 19:00 10 mg ONCE ONE Administration Medical Decision Making Medical Decision Making [facility] Narrative: 64-year-old female with a past medical history as above presents for evaluation of general weakness and fatigue. She also reports some numbness to the left face, left hand and left toes. She has an NIH stroke score of 0 on arrival. She reports that her weakness started 2 days ago in the numbness started at 9 a.m. this morning, about 10 hours prior to my evaluation. She is not a candidate for TNK however I do not feel this is related to a TIA or CVA. We will still obtain a CT scan of the brain. Her symptoms may be related to her complex neurologic history. Plan for basic labs, EKG. A bladder scan revealed approximately 800 cc of urine. The patient does have a history of neurogenic bladder, a straight cath will be ordered. The patient has no fever, no infectious symptoms Differential Diagnosis Differential Diagnoses: The differential diagnosis associated with the presentation includes Neuropathy Paresthesia CVA TIA Stiff man syndrome Neurogenic bladder Admission/Observation Consideration of admission/observation: Escalation of care including admission/observation considered Lab Data [facility] Lab Attestation statement: I reviewed the patient's lab results. Patient has a mild leukopenia with a white count of 3.1, normal hemoglobin 12 with a hematocrit of 33.4. Normal platelet count. No significant electrolyte abnormalities warranting intervention. 01/07/25 18:36 01/07/25 18:36 Labs: Lab Results 01/07/25 01/07/25 Range/Units 18:36 20:35 WBC 3.1 L (4.8-10.8) X10*3/uL RBC 3.76 L (4.20-5.50) X10*6/uL Hgb 12.0 (12.0-16.0) g/dl Hct 33.4 L (37.0-47.0) % MCV 88.8 (80.0-98.0) fL MCH 31.9 (27.0-33.0) pg MCHC 35.9 H (31.0-35.0) g/dl RDW 14.0 (11.0-16.0) % Plt Count 304 (160-400) X10*3/uL MPV 9.4 (9.4-12.3) fL Immature Gran % (Auto) 0.0 (0.0-0.4) % Neut % (Auto) 40.7 L (45-73) % Lymph % (Auto) 46.5 H (20-40) % Osborne % (Auto) 9.6 (2-11) % Eos % (Auto) 2.9 (0-4) % Baso % (Auto) 0.3 (0-2) % Lymph # (Auto) 1.5 (1.2-4.9) X10*3/uL Osborne # (Auto) 0.3 (0.1-1.2) X10*3/uL Eos # (Auto) 0.1 (0.0-0.4) X10*3/uL Baso # (Auto) 0.0 (0.0-0.2) X10*3/uL Abs Immat Gran (auto) 0.00 (0.00-0.03) X10*3/uL Absolute Neuts (auto) 1.3 L (2.0-8.3) x10*3/uL Absolute Nucleated RBC 0.000 (0.0-0.012) X10*3/uL Nucleated RBC % (auto) 0.0 (0.0-0.2) /100WBC PT 13.0 H (10.9-12.4) SEC INR 1.1 (0.9-1.1) Sodium 140 (135-145) mmol/L Potassium 3.9 (3.3-5.1) mmol/L Chloride 109 H (96-108) mmol/L Carbon Dioxide 25 (22-29) mmol/L Anion Gap 10 L (12-20) BUN 11 (9-16) mg/dL Creatinine 0.69 (0.5-1.4) mg/dL Estim Creat Clear Calc 71.2 Estimated GFR > 60 Fasting Glucose 86 (60-99) mg/dL Calcium 8.9 (8.4-10.2) mg/dL Total Bilirubin 0.6 (0.0-1.0) mg/dL AST 31 (5-31) U/L ALT 13 (0-31) U/L Alkaline Phosphatase 63 (39-117) U/L Troponin I High Sens 3.4 (<3.5-17.0) ng/L Total Protein 7.8 (6.5-8.0) g/dL Albumin 4.0 (3.5-5.0) g/dL Urine Color Yellow Urine Appearance Clear Urine pH 8.5 (5.0-9.0) Ur Specific [place] <= 1.005 (1.005-1.025) Urine Protein Negative (Neg-Trace) mg/dL Urine Glucose (UA) Negative (Negative) mg/dL Urine Ketones Negative (Negative) mg/dL Urine Blood Negative (Negative) Urine Nitrite Negative (Negative) Ur Leukocyte Esterase Negative (Negative) Urine RBC 0-2 (0-2) /HPF Urine WBC 0-5 (0-5) /HPF Ur Squamous Epith Cells 0-2 (0-2) /HPF Urine Bacteria None Seen (None Seen) Hyaline Casts 0-2 (0-2) /LPF Radiology Impression Discussion of test interpretation with radiology: I have reviewed the radiologist's reading. Radiologist Impression: Findings: No intra-axial mass, midline shift, hydrocephalus, or acute hemorrhage. No significant atrophy-like change or white matter disease. There is no sinus or mastoid fluid. The orbits are within normal limits. There is no acute fracture. IMPRESSION: 1. No acute intracranial findings. This document has been electronically signed by: Macie Allen MD on 01/07/2025 21:10:23 Discharge Plan Discharge Clinical Impression: Fatigue, Weakness Patient Disposition: Home, Self-Care Instructions: Fatigue (ED), Weakness (ED) Additional Instructions: Your workup in the ER today was reassuring. There was no evidence of infections pain The CT scan of your head was reassuring. It is possible that your symptoms were related to polypharmacy or too much baclofen Follow up with your outpatient providers. Return for new or worsening symptoms Prescriptions: No Action (DME) rollator See Rx Instructions .Route .MEDSUPPLY Qty: 1 0RF Rx Instructions: As directed miscellaneous medical supply Misc miscellaneous Rx Instructions: Bed Assist Rail (DME) Portable Mobility Bed rail See Rx Instructions .Route .MEDSUPPLY Qty: 2 0RF Rx Instructions: As directed omeprazole 20 mg capsule,delayed release(DR/EC) 20 mg PO BID 90 Days Qty: 180 1RF diazepam 5 mg tablet 10 mg PO BID PRN ranolazine 500 mg tablet extended release 12 hr 500 mg PO BID Qty: 180 3RF ergocalciferol (vitamin D2) 1,250 mcg (50,000 unit) capsule 1,250 mcg PO Q2W estradiol 0.075 mg/24 hr patch weekly 1 patch transdermal WE@0900 gabapentin 600 mg tablet 1,200 mg PO DAILY@1900 lamotrigine 200 mg tablet extended release 24hr 400 mg PO DAILY baclofen 20 mg tablet 20 mg PO Q4H 90 Days Qty: 540 3RF Gamunex-C 20 gram/200 mL (10 %) solution IV Valtoco 10 mg/spray (0.1 mL) spray,non-aerosol intranasal diazepam [Valium] 5 mg tablet 5 mg PO BID PRN dicyclomine 10 mg capsule 10 mg PO QID epinephrine 0.3 mg/0.3 mL auto-injector 0.3 mg IM Q10M PRN (Reason: anaphylaxis) Qty: 2 1RF Rx Instructions: for 2 doses Eliquis 5 mg tablet 5 mg PO BID Gamunex-C 5 gram/50 mL (10 %) solution IV Print Language: Serbian
[2025-01-07 19:02] VITALS: BP 151/79; PULSE 69
[2025-01-07 19:07] LABS: Troponin-I High Sensitivity 3.4 ng/L (<3.5-17.0)
[2025-01-07 19:09] LABS: INTERNATIONAL NORM RATIO 1.1 (0.9-1.1); Prothrombin Time 13.0 SEC (10.9-12.4)
--- NOTE | 2025-01-07 20:16 | PC.NURSE ---
per tech, bladder scan reading >788 mL. VON Ruff informed, order for straight cath. about 900mL of CYU evacuated, patient expresses a lot of relief. pt to CT scan now
[2025-01-07 20:28] VITALS: BP 140/70; PULSE 66; RESP 16; TEMP 36.7; O2SAT 99
[2025-01-07 20:41] LABS: Appearance Urine Clear; Glucose Urine UA Negative (Negative); PH 8.5 (5.0-9.0); Specific Gravity - Urine <= 1.005 (1.005-1.025)
[2025-01-07 21:30] VITALS: BP 140/70; PULSE 66; RESP 16; TEMP 36.7; O2SAT 99
== END 2025-01-07 21:32 | disposition home or self-care (01) ==
PROVIDERS: Physician Assistant; Emergency Provider Emergency Medicine
DX: R53.83 Other fatigue (principal); R53.1 Weakness; R51.9 Headache, unspecified; I48.91 Unspecified atrial fibrillation; Z79.01 Long term (current) use of anticoagulants; Z86.73 Personal history of transient ischemic attack (TIA), and cerebral infarction without residual deficits; Z79.899 Other long term (current) drug therapy; Z87.39 Personal history of other diseases of the musculoskeletal system and connective tissue
CPT/HCPCS: 36415; 70450; 80053; 81001; 84484; 85025; 85610; 93005; 99284

== ENCOUNTER → 2025-01-07 18:27 | Outpatient (BNV) | payer OTHER, SELFPAY | PROVIDERS: Emergency Provider Emergency Medicine; Visit Provider Radiology Diagnostic Radiology | DX: R20.2 Paresthesia of skin (principal) | CPT/HCPCS: 70450 ==

== ENCOUNTER → 2025-01-07 18:43 | Outpatient (BNV) | payer OTHER, SELFPAY | PROVIDERS: Emergency Provider Emergency Medicine; Visit Provider Internal Medicine Cardiovascular Disease | DX: I49.3 Ventricular premature depolarization (principal) | CPT/HCPCS: 93010 ==

== ENCOUNTER 2025-01-20 10:36 | Outpatient (AMB) | payer OTHER, MEDICAID, SELFPAY ==
[2025-01-20 10:39] VITALS: BP 155/69; PULSE 76; RESP 14; TEMP 36.8; O2SAT 97; BMI 25.2
--- NOTE | 2025-01-20 10:39 | A.OFFPC_ITS ---
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: No Accompanied by: Self / Same As Patient Allergies Beta-Blockers (Beta-Adrenergic Bloc Allergy (Mild, Verified 01/20/25 11:22) blood pressure drop house dust Allergy (Mild, Verified 01/20/25 11:22) Anaphylaxis penicillin G (Penicillin G) Allergy (Mild, Verified 01/20/25 11:22) RASH penicillin V Allergy (Unknown, Verified 01/20/25 11:22) Abdominal Pain adhesive Allergy (Verified 01/20/25 11:22) Blister mold Allergy (Verified 01/20/25 11:22) Headache Qszifrs-EJM-XyC Reductase Inhibitor Allergy (Verified 01/20/25 11:22) Weakness codeine (Codeine) Adverse Reaction (Mild, Verified 01/20/25 11:22) SEVERE ABDOMINAL PAIN Medication List - Last Reconciled 01/20/25 by Ellie Kan PA-C apixaban (Eliquis) 5 mg PO BID baclofen 20 mg PO Q4H 90 days diazepam (Valtoco) mg intranasal diazepam 10 mg PO BID PRN diazepam (Valium) 5 mg PO BID PRN dicyclomine 10 mg PO QID epinephrine 0.3 mg (0.3 mL) IM Q10M PRN ergocalciferol (vitamin D2) 1,250 mcg PO Q2W 90 days estradiol 1 patch transdermal WE@0900 gabapentin 1,200 mg PO DAILY@1900 immune globul G-gly-IgA avg 46 20 gram/200 mL (10 %) (Gamunex-C) mL IV immune globul G-gly-IgA avg 46 5 gram/50 mL (10 %) (Gamunex-C) mL IV lamotrigine ER 400 mg PO DAILY miscellaneous medical supply Bed Assist Rail omeprazole 20 mg PO BID 90 days [Portable Mobility Bed rail As directed] ranolazine ER 500 mg PO BID [rollator As directed] Tobacco use date assessed: 01/20/25 Dental Screening Dental Screen Date: 11/09/24 HPI ER Discharge HPI Details The patient is a 65-year-old female presenting for follow-up after a recent emergency room visit and hospital discharge. 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 She reports difficulty with self-catheterization due to severe muscle spasms, leading to the need for emergency care when her bladder was found to be significantly distended with 900 mL of urine. The patient has been advised to consider a suprapubic catheter due to her inability to self-catheterize effectively. The patient also experiences stress urinary incontinence and urinary urgency incontinence, which were previously managed with an InterStim device implanted in 2019. She has been instructed to reduce caffeine intake, void every two hours, and perform Kegel exercises to manage these symptoms. The patient reports episodes of hypertension, with a recent blood pressure reading of 140/67 mmHg. She has been advised against blood pressure medications due to the risk of rapid blood pressure fluctuations. Social history - Functional Status: Requires a rollator for mobility in the morning due to vision difficulties. [facility] Medical History (Updated 01/20/25 @ 11:26 by Ellie Kan PA-C) Hypertension Urinary urgency Urinary, incontinence, stress female Muscle weakness Blurry vision Intestinal cramps Bladder retention Carpal tunnel syndrome Right hand pain Overweight (BMI 25.0-29.9) Intermittent palpitations Neurogenic bladder History of mammogram (~2022) Ataxia Coronary artery spasm Coronary artery anomaly Hair loss Hemorrhoids Diverticulosis Tubular adenoma Eczema Fibrocystic breast disease Herpes simplex Hypersomnia Witnessed apneic spells Arthritis Difficulty swallowing Weakness On anticoagulant therapy Lumbar spondylosis Spinal stenosis in cervical region Restless legs syndrome (RLS) Anemia Fatigue Cervical spondylosis Anxiety Bipolar disease, manic Occasional tremors Obstructive sleep apnea Insomnia GERD (gastroesophageal reflux disease) Cardiac microvascular disease TIA (transient ischemic attack) Atrial fibrillation Cardiomyopathy Surgical History H/O cervical discectomy History of partial hysterectomy History of tonsillectomy Hx of hand surgery History of radiofrequency ablation procedure for cardiac arrhythmia History of esophagogastroduodenoscopy (EGD) H/O colonoscopy (~10/05/20) H/O radiofrequency ablation (RFA) of nerve of lumbar spine Hx of cervical spine surgery Hx of shoulder surgery H/O: knee surgery Hx of cholecystectomy History of carpal tunnel release Hx of appendectomy Family History Father Dementia Cancer Mother Cancer COPD (chronic obstructive pulmonary disease) Multiple sclerosis Daughter Myasthenia Social History Household Members: Significant Other Housing: House Are you a primary care worker to a significant other at home: No Do you presently have visiting nurse 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, INTAKE COORDINATOR) Alcohol intake: current Alcohol intake frequency: does not drink Patient Tobacco Use Status: Former Tobacco user Advance Directives Date on File: 04/10/23 service: No Current occupational status: disabled Cognitive needs: Yes (cane ) Hearing needs: No Vision needs: Yes (rx glasses) Questionnaire PHQ-9 Over the last 2 weeks, how often have you been bothered by any of the following problems? 1. Little interest or pleasure in doing things: nearly every day 2. Feeling down, depressed, or hopeless: more than half the days 3. Trouble falling or staying asleep, or sleeping too much: not at all 4. Feeling tired or having little energy: nearly every day 5. Poor appetite or overeating: nearly every day 6. Feeling bad about yourself - or that you are a failure or have let yourself or your family down: not at all 7. Trouble concentrating on things, such as reading the newspaper or watching television: nearly every day 8. Moving or speaking so slowly that other people could have noticed. Or the opposite - being so fidgety or restless that you have been moving around a lot more than usual: nearly every day 9. Thoughts that you would be better off or of hurting yourself in some way: several days Total score: 18 Depression Screening Interpretation: Positive Depression Screening Follow-up: Existing condition and In treatment Depression Screening Done: Yes 95283 - PHQ-9 Billing: Yes Source: Developed by Drs. Gustavo Russell, Raquel Ramírez, Crispin Null and colleagues, with an educational edilberto from [employer]. Thrive Questionnaire Date Thrive assessed: 12/23/24 I am a: Patient What is your living situation today?: I have a steady place to live Within the past 12 months, did the food you bought not last and you didn't have the money to get more?: Never true Within the past 12 months, did you worry whether your food would run out before you got money to buy more?: Never true Do you have trouble paying for medicines?: No Do you have trouble getting transportation to medical appointments?: No Do you have trouble paying your heating and electricity bill?: No Do you have trouble taking care of your child, family member or friend?: No Do you have trouble with day-to-day activities such as bathing, preparing meals, shopping, managing finances, etc.?: No Are you currently unemployed and looking for a job?: No Are you interested in more education?: No Please select the resources that you would like help with: None THRIVE Score: 0 AUDIT C Alcohol Use Questionnaire (AUDIT-C) 1. How often do you have a drink containing alcohol?: Never 3. How often do you have six or more drinks on one occasion?: Never Total Score: 0 Score Reviewed/Action Taken: Yes CARYN-7 AMB Questionnaire CARYN-7 Date CARYN - 7 assessed: 12/23/24 Feeling nervous, anxious, or on edge: 2 = More than half the days Not being able to stop or control worryin = Several days Worrying too much about different things: 2 = More than half the days Trouble relaxin = Several days Being so restless that it is hard to sit still: 0 = Not at all Becoming easily annoyed or irritable: 1 = Several days Feeling afraid as if something awful might happen: 1 = Several days Total CARYN-7 score (0-4 normal; 5-9 mild; 10-14 moderate; 15-21 severe): 8 Source: Developed by Drs. Gustavo Russell, Raquel Ramírez, Crispin Null and colleagues, with an educational edilberto from [employer]. CARYN-7 Assessment Billing CARYN-7 Assessment Tool: CARYN-7 Assessment 25713 Review of Systems Const Details: - Neurological: Reports difficulty waking up and confusion for several days. - Genitourinary: Reports urinary retention and fullness, requires assistance with catheterization. - Musculoskeletal: Reports muscle spasms associated with Stiff Person Syndrome. - Cardiovascular: Reports episodes of hypertension, denies current chest pain or palpitations. All systems reviewed & are unremarkable except as noted in HPI and below Physical exam (Primary Care) Vital Signs: Last Vital Signs Temp 98.3 F 01/20/25 10:39 Pulse 76 01/20/25 10:39 Resp 14 01/20/25 10:39 BP 155/69 H 01/20/25 10:39 Pulse Ox 97 01/20/25 10:39 Oxygen Delivery Method Room Air 01/20/25 10:39 Care Plan Goal for BP management: <140/90 at Goal BMI result Body Mass Index 25.2 BMI Assessment/Plan discussion: High BMI High, discussed plan: lifestyle, weight reduction, dietary, physical activity, alcohol moderation and other Tobacco/Smoking Status: Tobacco use Status Tobacco use date assessed 01/20/25 01/20/25 10:49 Patient Tobacco Use Status Former Tobacco user 01/20/25 10:49 PHQ-9: PHQ-9 Score PHQ-9: Total score 18 01/20/25 10:49 Depression Screening Interpretation: Positive Depression Screening Follow-up: Existing condition and In treatment Thrive Assessment: Date of Thrive Assessment Date Thrive assessed 12/23/24 01/20/25 10:49 Const Other: Appearance: Alert. Oriented X3. No acute distress. Head: Normal external exam. Normocephalic. Atraumatic. Eyes: Pupils are equal, round, and reactive to light. Extraocular movements intact. Conjunctiva and sclera normal. Eyelids normal. Throat: Pharynx normal. Uvula midline. Moist mucous membranes. Neck: Normal inspection. Neck supple. Full range of motion. Cardiovascular: Normal heart rate and rhythm. Respiratory: No respiratory distress. Painless inspiration. Back: Full range of motion noted. Skin: Skin warm and dry. Normal skin color. Extremities: Extremities exhibit normal range of motion. Results Reviewed Results Reviewed: - CT Scan: Normal kidney function, creatinine levels normal. Coding Level of Care Code Est Pt Level 4 (72520) Complex EM visit Add On G2211 Diagnoses Stiff person syndrome G25.82 Bladder retention R33.9 Urinary, incontinence, stress female N39.3 Urinary urgency R39.15 Hypertension I10 Additional Codes CARYN-7 Assessment Billing - CARYN-7 Assessment Tool: CARYN-7 Assessment 19630 ([id number]) PHQ-9 - 24534 - PHQ-9 Billing: Yes ([id number]) Assessment & Plan Assessment & Plan (1) Stiff person syndrome: Code(s): G25.82 - Stiff-man syndrome Category: Medical Plan: The patient is experiencing severe muscle spasms associated with Stiff Person Syndrome, impacting her ability to self-catheterize. A referral to urology has been made to consider the placement of a suprapubic catheter due to the challenges with self-catheterization. (2) Bladder retention: Code(s): R33.9 - Retention of urine, unspecified Category: Medical Plan: The patient has been experiencing urinary retention, with a significant bladder distention noted during an emergency room visit. A referral to urology has been made for further evaluation and management, including the potential need for a suprapubic catheter. (3) Urinary, incontinence, stress female: Code(s): N39.3 - Stress incontinence (female) (male) Category: Medical Plan: The patient has a history of stress urinary incontinence, previously managed with an InterStim device. She has been advised to continue lifestyle modifications, including reducing caffeine intake and performing Kegel exercises. (4) Urinary urgency: Code(s): R39.15 - Urgency of urination Category: Medical Plan: The patient has a history of stress urinary incontinence, previously managed with an InterStim device. She has been advised to continue lifestyle modifications, including reducing caffeine intake and performing Kegel exercises. (5) Hypertension: Code(s): I10 - Essential (primary) hypertension Category: Medical Plan: The patient reports episodes of hypertension, with a recent reading of 140/67 mmHg. Due to the risk of rapid blood pressure fluctuations, antihypertensive medications have not been prescribed. Plan Plan Patient was informed and verbally consented to the use of an ambient scribe for clinic note documentation during this visit. 1. Stiff Person Syndrome The patient is experiencing severe muscle spasms associated with Stiff Person Syndrome, impacting her ability to self-catheterize. A referral to urology has been made to consider the placement of a suprapubic catheter due to the challenges with self-catheterization. 2. Urinary Retention The patient has been experiencing urinary retention, with a significant bladder distention noted during an emergency room visit. A referral to urology has been made for further evaluation and management, including the potential need for a suprapubic catheter. 3. Stress Urinary Incontinence The patient has a history of stress urinary incontinence, previously managed with an InterStim device. She has been advised to continue lifestyle modifications, including reducing caffeine intake and performing Kegel exercises. 4. Urinary Urgency Incontinence The patient experiences urinary urgency incontinence, which has been managed with an InterStim device. Lifestyle modifications, such as reducing caffeine intake and scheduled voiding, have been recommended. 5. Hypertension The patient reports episodes of hypertension, with a recent reading of 140/67 mmHg. Due to the risk of rapid blood pressure fluctuations, antihypertensive medications have not been prescribed. During the visit, I discussed with the patient the management of her Stiff Person Syndrome and associated urinary retention. We reviewed the potential need for a suprapubic catheter due to her difficulties with self-catheterization. I also addressed her urinary incontinence issues and recommended lifestyle modifications, including reducing caffeine intake and performing Kegel exercises. For her hypertension, we discussed the risks associated with rapid blood pressure fluctuations and the decision to avoid antihypertensive medications at this time. Orders: Referrals [facility]/Hospice Referral F31.10 - Bipolar disorder, current episode manic without psychotic features, unspecified, F41.9 - Anxiety disorder, unspecified, G25.82 - Stiff-man syndrome, G45.9 - Transient cerebral ischemic attack, unspecified, G89.29 - Other chronic pain, H53.8 - Other visual disturbances, I48.91 - Unspecified atrial fibrillation, M19.90 - Unspecified osteoarthritis, unspecified site, M62.81 - Muscle weakness (generalized), M62. 838 - Other muscle spasm, M79.18 - Myalgia, other site, M79.641 - Pain in right hand, N31.9 - Neuromuscular dysfunction of bladder, unspecified, R13.10 - Dysphagia, unspecified, R27.0 - Ataxia, unspecified, R33.8 - Other retention of urine, R33.9 - Retention of urine, unspecified, R51.9 - Headache, unspecified, Z98.890 - Other specified postprocedural states Urology Referral G25.82 - Stiff-man syndrome, N31.9 - Neuromuscular dysfunction of bladder, unspecified, R33.8 - Other retention of urine, R33.9 - Retention of urine, unspecified Medications: Changed From ergocalciferol (vitamin D2) 1,250 mcg PO Q2W To ergocalciferol (vitamin D2) 1,250 mcg PO Q2W 7 caps 3RF 90 days Patient Instructions: - Follow up with urology for further evaluation and management of urinary retention. - Continue lifestyle modifications for urinary incontinence, including reducing caffeine intake and performing Kegel exercises. - Monitor blood pressure regularly and report any significant changes. - Schedule a three-month follow-up appointment.
[2025-01-20 11:20] VITALS: BP 140/67; PULSE 67
--- OUTSIDE RECORDS SUMMARY | 2025-01-20 12:42 | XMS_ITS | Encounter Summary ---
Author Organization [facility] and [facility] Address [address] [place] [id number] Care Team Providers Care Seed Corn Production Manager Name Role Phone No, Pcp (Do Not Change Name) Primary Care Provid er Unavailable Encounter Details Date Type Department Care Team (Late st Contact Info) Description 03/26/2024 Scanned Document INTERFACE DEFAULT [address] [place] [address] System, Provider Not In Social History [...] Care Team (Late st Contact Info) Description 02/18/2025 9:30 AM EDT Nutrition [facility] at [address] [place] [address] Marlee Norris, ANNA MARIE [address] [place] [address] 05/31/2025 3:30 PM EST Office [facility] [address] [address] Richard Lewis MD [address] [place] [phone] documented as of this encounter Visit Diagnoses Not on filedocumented in this encounter Additional Health Concerns Assessment Noted Time PHQ-9 Depression Total Score: 0 01/27/20 24 8:26 AM EDT documented as of this encounter Care Teams Seed Corn Production Manager Relationship Specialty Start Date End Date No, Pcp (Do Not Change Name) PCP - General 07/19/24 documented as of this encounter
--- OUTSIDE RECORDS SUMMARY | 2025-01-20 12:42 | XMS_ITS | Encounter Summary ---
Author Organization [facility] Address [address] [place] [address] Phone Care Team Providers Care Residential Insurance Inspector Name Role Phone Gustavo Suarez DO Primary Care Provider [phone] Ellie Kan PA Unavailable [phone] Reason for Visit * Reason Onset Date Comments Rx to different pharmacy 03/08/2020 Encounter Details Date Type Department Care Team (Late st Contact Info) Description 03/08/2020 Telephone [facility] [address] [place] [address] Gustavo Noe MD [address] [place] [address] Rx to different pharmacy Social History Tobacco [...] stating rx for patch [facility] go to [facility] - documented in this encounter Plan of Treatment Not on file documented as of this encounter Visit Diagnoses Diagnosis Menopausal syndrome- Primary Symptomatic menopausal or female climacteric states documented in this encounter Care Teams Residential Insurance Inspector Relationship Specialty Start Date End Date Gustavo Suarez DO [address] [place] [phone] PCP - General Internal Medicine 02/16/18 Ellie Kan PA [address] [place] [address] Physician Prototype Engineer 07/14/24 documented as of this encounter Additional Source Comments The information contained in this document represents components of the legal health record. It is not the complete legal health record.[facility]
--- OUTSIDE RECORDS SUMMARY | 2025-01-20 12:42 | XMS_ITS | Encounter Summary ---
Author Organization [facility] and [facility] Address [address] [place] [address] Care Team Providers Care Legal Biller Name Role Phone No, Pcp (Do Not Change Name) Primary Care Provid er Unavailable Encounter Details Date Type Department Care Team (Late st Contact Info) Description 06/09/2024 Scanned Document INTERFACE DEFAULT [address] [place] [address] System, Provider Not In Social History [...] EDT Nutrition [facility] at [address] [place] [address] Marlee Norris, ANNA MARIE [address] [place] [address] 05/31/2025 3:30 PM EST Office [facility] [address] [address] Richard Lewis MD [address] [place] [phone] documented as of this encounter Visit Diagnoses Not on filedocumented in this encounter Additional Health Concerns Assessment Noted Time PHQ-9 Depression Total Score: 0 01/27/20 24 8:26 AM EDT documented as of this encounter Care Teams Legal Biller Relationship Specialty Start Date End Date No, Pcp (Do Not Change Name) PCP - General 07/19/24 documented as of this encounter
--- OUTSIDE RECORDS SUMMARY | 2025-01-20 12:42 | XMS_ITS | Encounter Summary ---
Author Organization [facility] and [facility] Address [address] [place] [phone] Care Team Providers Care Compliance Representative Dealer Name Role Phone No, Pcp (Do Not Change Name) Primary Care Provid er Unavailable Reason for Visit * Reason Onset Date Comments Triage 10/10/2023 Encounter Details Date Type Department Care Team (Late st Contact Info) Description 10/10/2023 Telephone [facility] [address] [place] [address] Richard Lewis MD [address] [place] [phone] Triage Social History Tobacco Use Types Packs/Day [...] being worked up for [facility] at the [facility] and was scheduled to start on Ocrevus in 10/2021. She had hip replacement surgery in Feb 2022 at [facility] and four days s/p surgery, she experienced full body paresis from her neck to her feet. 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 She needed to go to rehab after this event as she required a wheelchair. She occasionally experiences blurry vision but follows regularly with her service employee. * Telephone Encounter - Katarina Handy - 10/10/2023 11:04 AM EDT Copied from [facility] #[id number]. Topic: General Message - [facility] >> Oct 10, 2023 11:00 AM Katarina Shukla wrote: [facility] MESSAGE Time of call: 11:00 [...] urgently? no Best telephone number for callback: [phone] Best time to return call: any Permission to leave message: yes Katarina Handy CARE Center Director Pharmaceutical documented in this encounter Plan of Treatment Upcoming Encounters Date Type Department Care Team (Late st Contact Info) Description 02/18/2025 9:30 AM EDT [facility] at 6 [facility] 6 [facility] [address] [place] [address] Marlee Norris, RD [address] [place], [place] [phone] 05/31/2025 3:30 PM EST Office [facility] [address] [place] [address] [address] [place], [place] [phone] Richard Lewis MD [address] [place] [phone] documented as of this encounter Visit Diagnoses Not on filedocumented in this encounter Additional Health Concerns Assessment Noted Time PHQ-9 Depression Total Score: 0 09/24/19 24 9:25 AM EDT documented as of this encounter Care Teams Compliance Representative Dealer Relationship Specialty Start Date End Date No, Pcp (Do Not Change Name) PCP - General 07/19/24 documented as of this encounter
--- OUTSIDE RECORDS SUMMARY | 2025-01-20 12:42 | XMS_ITS | Clinical Summary ---
Author Organization [facility] Address [address] [address] Phone Care Team Providers Care Internship Name Role Phone Gustavo Suarez DO Primary Care Provider [phone] Allergies Active Allergy Reactions Criticality Noted Date [...] formulations. However, I do believe that her automatic coil machine operator should weigh in on this as well. Therefore, I will send a copy of today's note. Her current dose of estradiol is 0 0.075 mg per 24 hours changed weekly. I cannot find in the chart where her previous dose was but according to the notes it was decreased to this current dose. If her automatic coil machine operator is in agreement, she will call when [...] this topic Insurance [employer] MCR Adv PPO ([id number]) ) [facility] Open Access [id number]) Care Teams Internship Relationship Specialty Start Date End Date Gustavo Suarez DO [address] [place] [address] PCP - General 05/15/20
--- OUTSIDE RECORDS SUMMARY | 2025-01-20 12:42 | XMS_ITS | Clinical Summary ---
Author Organization [address] Address [address] [place] [phone] Care Team Providers Care Consumer Studies Professor Name Role Phone No, Pcp (Do Not [...] 05/2021 Penicillins Hives,Other (See Comments),Rash High 07/09/2017 Iqdxlqn-Hsw-Hox Reductase Inhibitors Other (See Comments) Medium 07/19/2024 [...] 1,250 mcg (50,000 unit) capsule 3 Active estradioL (CLIMARA) 0.075 mg/24 hr 3 Active omeprazole (PRILOSEC) 20 mg capsule Active dicyclomine (BENTYL) 10 mg capsule 4 Active EPINEPHrine 0.3 mg/0.3 mL Inj auto-injector Inject 0.3 mg into the muscle once as needed for anaphylaxis . Active ranolazine (RANEXA) 500 mg 12 hr extended release tablet Take 1 tablet (500 mg total) by mouth 2 (two) times daily. 4 Active ondansetron (ZOFRAN-ODT) 4 mg disintegrating tablet 1 tablet (4 mg total). Active diazePAM (VALTOCO) 10 mg/spray (0.1 mL) nasal spray Use 1 spray (10 mg total) in one nostril as needed (severe muscle spasm). 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 Encounters Date Type Department Care Team Description 01/17/2025 Telephone [facility] [address] [place] [address] Richard Lewis MD Other 01/14/2025 Telephone [facility] [address] [place] [address] Richard Lewis MD Other 01/07/2025 Telephone [facility] [address] [place] [address] Richard Lewis MD Triage 12/30/2024 Refill [facility] [address] [place] [address] Richard Lewis MD Medication Problem 12/29/2024 Telephone [facility] [address] [place] [address] Richard Lewis MD Medication Problem 12/21/2024 1:00 PM EDT Office Visit [facility] [address] [place] [address] Richard Lewis MD Stiff person spectrum disorder (Primary Dx); Muscle cramping; White matter abnormality on MRI of brain 12/09/2024 Telephone [facility] [address] [place] [address] Richard Lewis MD Triage 11/30/2024 Telephone [facility] [address] [place] [address] Richard Lewis MD Other 11/25/2024 Telephone [facility] [address] [place] [address] Richard Lewis MD Other 11/09/2024 Telephone [facility] [address] [place] [address] 418[address] Richard Lewis MD Other 10/22/2024 Telephone [facility] [address] [place] [address] 570[address] Richard Lewis MD Advice Only 10/20/2024 Scanned Document INTERFACE DEFAULT [address] [place] [address] System, Provider Not In from Last 3 [...] AM EDT Nutrition Allergy & Immunology at [address] [place] [address] [address] [place], [place] [phone] Marlee Norris RD [address] [place] [phone] 05/31/2025 3:30 PM EST Office Visit [facility] [address] [place] [address] [address] [place], [place] [phone] Richard Lewis MD [address] [place] [phone] Health Maintenance Due Date Last Done Comments HIV screening 01/09/1973 Hepatitis C screening 01/09/1978 Tetanus adult (Td q 10,TDAP once) 1980 Breast cancer screening 2000 Lipid disorder screening 2000 Colon cancer screening, Colonoscopy 01/09/2005 Diabetes screening 01/09/2005 Pneumococcal Vaccine (50+ years) (1 of 1 - PCV) 01/09/2010 Shingles vaccine (Shingrix) (2 of 2 - Shingrix (RZV) 2 Dose Standard Series) 02/07/2018 12/08/2017 Influenza vaccine 12/03/2024 03/12/2016 Covid-19 vaccine series ( - season) 2025 09/14/2021, 12/13/2020 Osteoporosis screening (bone density) 01/09/2025 RSV Immunization (1 - 1-dose 75+ series) 01/09/2035 Cervical cancer screening Discontinued Meningococcal B Vaccine Aged Out No l onger eligible based on patient's age to complete this topic Meningococcal Vaccine Aged Out No kamla holly eligible based on patient's age to complete this topic Insurance [place] MGD [facility] [place] [id number] [address] [facility] [place] [id number] Care Teams Consumer Studies Professor Relationship Specialty Start Date End Date No, Pcp (Do Not Change Name) PCP - General 07/19/24
--- OUTSIDE RECORDS SUMMARY | 2025-01-20 12:42 | XMS_ITS | Clinical Summary ---
Author Organization [facility] Address [address] [place] [address] Care Team Providers Care Appliance Service Representative Name Role Phone Gustavo Suarez Primary Care [...] DTaP,Tdap,and Td Vaccines (1 - Tdap) 01/09/1982 Osteoporosis Screening 01/09/2010 Pneumococcal Vaccine: 50+ Years (1 of 1 - PCV) 01/09/2010 Zoster Vaccines (2 of 2) 02/02/2018 12/08/2017 Mammogram 08/12/2018 08/12/2016, 05/25/2015 Alcohol/Substance Use Screening 05/05/2024 Depression Screening and Follow-Up 05/05/2024 Health Care Proxy Review 05/05/2024 Social Drivers of Health Annual Screening 05/05/2024 COVID-19 Vaccine (3 - 2024-2 6 season) 2025 09/14/2021, 12/13/2020 Influenza Vaccine (#1) 2025 03/12/2016 RSV Vaccine (60+ years old a nd patients) (1 - 1-dose 75+ series) 01/09/2035 Hepatitis B Vaccines Aged Out No long er eligible based on patient's age to complete this topic Insurance [facility] AET[employer] MCR * Guarantor: DANIELLE DENTON Account Type Relation to Patient Date of Phone Billing Address Personal/Family 1960 Care Teams Appliance Service Representative Relationship Specialty Start Date End Date Gustavo Suarez [address] [place] [address] [place] [address] PCP - General Internal Medicine 11/13/22
--- OUTSIDE RECORDS SUMMARY | 2025-01-20 12:42 | XMS_ITS | Clinical Summary ---
Author Organization [facility] Address [address] [place] [address] Care Team Providers Care Field Marketing Team Leader Name Role Phone Gustavo Suarez DO Primary [...] 5 12/01/2023 Active ergocalciferol (VITAMIN D2) capsule 78869 units Take 1 capsule (50,000 Units total) [...] of 2) 01/09/2010 Influenza Vaccine (#1) 2025 Fall Risk Assessment 01/09/2025 Osteoporosis Screening (DEXA Scan) 01/09/2025 Pneumococcal Vaccine (1 of 1 - PCV) [...] age to complete this topic Care Teams Field Marketing Team Leader Relationship Specialty Start Date End Date Gustavo Suarez DO [address] [place] [phone] PCP - General Internal Medicine 06/23/18
--- OUTSIDE RECORDS SUMMARY | 2025-01-20 12:42 | XMS_ITS ---
Author Organization [facility] Care Team Providers Care Field Operations Coordinator Name Role Phone Johnny Gunn Unavailable Unavailable Clementina Sullivna Unavailable Unavailable Nathalia Hood Unavailable Unavailable Vladimir Costa Unavailable Unavailable Melecio Mendoza Unavailable Unavailable Debra Beard Unavailable Unavailable Allergies and adverse reactions Code CodeSystem Substance Reaction Severity StartDate Concern Status 143704179 SNOMED CT Penicillins Unknown 12/18/2022 activ e 2670 RXNORM Codeine Unknown 12/18/2022 active Care Team Name Role Address Phone Organization Dates Melecio Mendoza PCP [address] [facility] [address], [place], [address], [facility] (Office): : [facility] 12/18/2022 - 12/27/2022 Johnny Gunn [address] [place] [address], [address], [place] (Office): [facility] 12/18/2022 - 12/27/2022 Clementina Sullivan [address] [place] [address], [address], [place] (Office): : [facility] 12/18/2022 - 12/27/2022 Nathalia Hood [address] [facility] [address], [place], [address], [place] (Office): : [facility] 12/18/2022 - 12/27/2022 Vladimir Costa [address] [facility] [address], [place], [phone], [facility] (Office): [facility] 12/18/2022 - 12/27/2022 Debra Sahajudith [address], [place], [address], [place] (Office): : [facility] 12/18/2022 - 12/27/2022 Immunizations Immunization Status Vaccine Details Vaccine Code CodeSystem Date Notes TB 2 Step Mantoux Skin Test completed tuberculin skin test; unspecified formulation lotNumber: [id number] expiry: 01/04/2024 Mfg: Green [employer] pharmaceutical Given 0.1 ml Left Forearm intradermally Step 1 of Multi-step with next step required 98 CVX created date: 12/21/2022 consent date: 12/21/2022 administer ed date: 12/19/2022 COVID-19 Vaccine Dose 1 completed unknown vaccine or immune globulin 999 CVX created date: 12/17/2022 administer ed date: 12/13/2020 Pfizer COVID-19 Vaccine Dose 2 completed unknown vaccine or immune globulin 999 CVX created date: 12/17/2022 administer ed date: 09/14/2021 Pfizer PCV20 cancelled Pneumococcal conjugate vaccine 20-valent (PCV20), polysaccharide [id number] conjugate, adjuvant, preservative free 216 CVX created date: 12/24/2022 consent date: 12/24/2022 Educated by Salma Mosquera on 12/24/2022 Flu Vaccine Prior To Admission (historical only) cancelled unknown vaccine or immune globulin 999 CVX created date: 12/17/2022 consent date: 12/17/2022 Mental Status Section Date Assessment Total Score Description 12/27/2022 BIMS 15 cognitively int act CAM 0 No delirium ind icated PHQ-9 02 minimal depress ion 12/24/2022 BIMS 15 cognitively int act CAM 0 No delirium ind icated PHQ-9 02 minimal depress ion Problems Problem # Description Date of onset Resolved Date Code CodeSystem Concern Status 1 ANXIETY DISORDER, UNSPECIFIED 12/19/[address] active 2 ATHEROSCLEROTIC HEART DISEASE OF [place] CORONARY ARTERY WITHOUT ANGINA PECTORIS 12/19/[address] active 3 ATTENTION-DEFICIT HYPERACTIVITY DISORDER, UNSPECIFIED TYPE 12/19/[address] active 4 BIPOLAR DISORDER, UNSPECIFIED 12/19/[address] active 5 CONSTIPATION, UNSPECIFIED 12/19/[address] active 6 DYSPHAGIA, OROPHARYNGEAL PHASE 12/19/[address] active 7 ESSENTIAL (PRIMARY) HYPERTENSION 12/19/[address] active 8 HYPERLIPIDEMIA, UNSPECIFIED 12/19/[address] active 9 MIGRAINE, UNSPECIFIED, NOT INTRACTABLE, WITHOUT STATUS MIGRAINOSUS 12/19/[address] active 10 MULTIPLE SCLEROSIS 12/19/[address] active 11 MUSCLE WEAKNESS (GENERALIZED) 12/19/[address] active 12 OBSTRUCTIVE SLEEP APNEA (ADULT) (PEDIATRIC) 12/19/[address] active 13 OTHER ABNORMALITIES OF GAIT AND MOBILITY 12/19/[address] active 14 OTHER LACK OF COORDINATION 12/19/[address] active 15 OTHER SYMPTOMS AND SIGNS INVOLVING THE MUSCULOSKELETAL SYSTEM 12/19/[address] active 16 PERSONAL HISTORY OF TRANSIENT ISCHEMIC ATTACK (TIA), AND CEREBRAL INFARCTION WITHOUT RESIDUAL DEFICITS 12/19/[address] active 17 PRESENCE OF RIGHT ARTIFICIAL HIP JOINT 12/19/[address] active 18 RESTLESS LEGS SYNDROME 12/19/[address] active 19 UNILATERAL PRIMARY OSTEOARTHRITIS, RIGHT HIP 12/19/[address] active 20 UNSPECIFIED ATRIAL FIBRILLATION 12/19/[address] active 21 UNSPECIFIED CORD COMPRESSION 12/19/[address] active Reason for Referral No Reasons for Referral Entered Social History Social History Observation Description Start Date End Date Code Code System Current Smoking Status Tobacco smoking consumption unknown 942535332 SNOMED CT Sex Assigned At Female 1960 [address]-3 [facility] Gender Identity Sexual Orientation Vital Signs Code Code System Vitals Name Values and Units Timing Information 9279-1 [facility] Respiratory Rate Value=18.0 Units=/m in 12/27/2022 8462-4 [facility] Blood Pressure-Diastolic Value=75 Un its=mmHg 12/27/2022 8480-6 [facility] Blood Pressure-Systolic Fxcxc=059 Un its=mmHg 12/27/2022 8310-5 [facility] Body Temperature Value=97.8 Units= F 12/27/2022 8867-4 [facility] Heart rate Value=95.0 Units=/min 78724-4 [facility] O2 % BldC Oximetry Value=98.0 Units= % 12/27/2022 29207-6 [facility] Pain Level Value=0.0 12/27/2022 57517-1 [facility] Weight Obhhu=693.6 Units=Lbs 8302-2 [facility] Height Value=61.0 Units=Inches 12/24/2022
--- OUTSIDE RECORDS SUMMARY | 2025-01-20 12:42 | XMS_ITS | Encounter Summary ---
Author Organization [facility] Address [address] [place] [phone] Care Team Providers Care Chip Frier Name Role Phone No, Pcp (Do Not Change Name) Primary Care Provid er Unavailable Encounter Details Date Type Department Care Team (Late st Contact Info) Description 08/08/2023 Scanned Document [facility] [address] [place] [phone] Marquita Gallegos MD [address] [place] [phone] Social History Tobacco Use Types Packs/Day [...] AM EDT Nutrition Allergy & Immunology at [address] [place] [address] [address] [place] [address] 05/31/2025 3:30 PM EST Office Visit [facility] [address] [phone] Richard Lewis MD [address] [facility] [place] [phone] documented as of this encounter Visit Diagnoses Not on filedocumented in this encounter Care Teams Chip Frier Relationship Specialty Start Date End Date No, Pcp (Do Not Change Name) PCP - General 07/19/24 documented as of this encounter
--- OUTSIDE RECORDS SUMMARY | 2025-01-20 12:42 | XMS_ITS | Clinical Summary ---
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 I have reviewed with the patient the importance of a heart healthy lifestyle which includes eating a low-fat low-salt diet, getting regular exercise, maintaining a healthy weight, not smoking, and following up with routine medical care. PAF (paroxysmal atrial fibri llation) ([facility] V24, [facility] V28) 03/10/2024 Assessment & Plan (04/14/2024 4:08 [...] DX:Hypertension A-fib (CMS/HCC V24, CMS/HCC V28) DX:A-fib ([facility]) Cardiac microvascular disease DX :Cardiac microvascular disease [...] Panel) 04/12/2022 Colorectal Cancer Screening: Colonoscopy 04/12/2022 Hepatitis C Screening 04/12/2022 Medicare Annual Wellness Visit 04/12/2022 Osteoporosis Screening (Bone Density Screening) 04/12/2022 Social Influencers of Health Screening 04/12/2022 Depression Screening 05/05/2024 COVID-19 Vaccine (3 - 2024-2 6 season) 2025 09/14/2021, 12/13/2020 Influenza Vaccine (#1) 2025 03/12/2016 Falls Risk Assessment 01/09/2025 Hypertension/CHF/CAD Annual BMP Blood Test 04/05/2025 04/05/2024 [...] mmol/L LAB CHEMISTRY METHOD 04/05/2024 3:28 PM [facility] Potassium 3.8 3.5 - 5.5 mmol/L LAB CHEMISTRY METHOD 04/05/2024 3:28 PM [facility] Chloride 111(H) 96 - 110 mmol/L LAB CHEMISTRY METHOD 04/05/2024 3:28 PM [facility] CO2 26 21 - 32 mmol/L LAB CHEMISTRY METHOD 04/05/2024 3:28 PM [facility] Anion Gap 8 3 - 11 LAB CHEMISTRY METHOD 04/05/2024 3:28 PM [facility] Glucose 84 70 - 100 mg/dL LAB CHEMISTRY METHOD 04/05/2024 3:28 PM [facility] BUN 9 5 - 25 mg/dL LAB CHEMISTRY METHOD 04/05/2024 3:28 PM [facility] Creatinine 0.63 0.50 - 1.10 mg/dL LAB CHEMISTRY METHOD 04/05/2024 3:28 PM [facility] eGFR 99 >=60 mL/min/1. 73m2 LAB CHEMISTRY METHOD 04/05/2024 3:28 PM [facility] Comment:Calculation based on the Chronic Kidney Disease Epidemiology Collaboration (CKD-EPI) equation refit without adjustment for race. BUN/Creatinine Ratio 14.3 LAB CHEMISTRY METHOD 04/05/2024 3:28 PM [facility] Calcium 9.5 8.5 - 10.5 mg/dL LAB CHEMISTRY METHOD 04/05/2024 3:28 PM [facility] AST (SGOT) 24 10 - 42 unit/L LAB CHEMISTRY METHOD 04/05/2024 3:28 PM [facility] ALT (SGPT) 19 10 - 60 unit/L LAB CHEMISTRY METHOD 04/05/2024 3:28 PM EST [facility] Alkaline Phosphatase 65 42 - 121 unit/L LAB CHEMISTRY METHOD 04/05/2024 3:28 PM EST [facility] Total Protein 6.6 6.0 - 8.0 g/dL LAB CHEMISTRY METHOD 04/05/2024 3:28 PM EST [facility] Albumin 3.7 3.2 - 5.0 g/dL LAB CHEMISTRY METHOD 04/05/2024 3:28 PM [facility] Total Bilirubin 0.6 0.0 - 1.4 mg/dL LAB CHEMISTRY METHOD 04/05/2024 3:28 PM [facility] Blood Venous blood specimen / Unknown Venipuncture / Unknown 04/05/2024 2:46 PM EST 04/05/2024 2:59 PM EST Enrique Moyer MD LAB BLOOD ORDERABLES Final Result [facility] [address] [place] [address], from Last 3 Months or Most Recently Relevant to Health Maintenance Insurance [employer]ET[employer] MEDICARE ADVANTAGE [facility] Advance Directives Documents on File Type Date Recorded Patient Podiatric Surgeon Expl anation Health Care Decision (hx) 02/15/2022 AD SPAULDING DIRECTIVE Health Care Decision (hx) 02/15/2022 AD SPAULDING DIRECTIVE Health Care Decision (hx) 02/15/2022 AD SPUALDING DIRECTIVE Care Teams Services Advisor Relationship Specialty Start Date End Date Clarence Leiva MD [facility] [address] [place] [address] [address] [place] [address] PCP - General Internal Medicine 08/02/24
--- OUTSIDE RECORDS SUMMARY | 2025-01-20 12:42 | XMS_ITS | Encounter Summary ---
Author Organization [facility] Address [address] [place] [phone] Care Team Providers Care Coffin Maker Name Role Phone No, Pcp (Do Not Change Name) Primary Care Provid er Unavailable Encounter Details Date Type Department Care Team (Late st Contact Info) Description 10/10/2023 Transcribed Orders [facility] SCHEDULING [address] [place], [place] [phone] Referral, Self Social History Tobacco Use Types [...] EDT Nutrition Allergy & Immunology at [address] [place] [address] [address] Marlee Norris, ANNA MARIE [address] [place] [address] 05/31/2025 3:30 PM EST Office Visit [facility] [address] [address] Richard Lewis MD [address] [place] [phone] documented as of this encounter Visit Diagnoses Not on filedocumented in this encounter Additional Health Concerns Assessment Noted Time PHQ-9 Depression Total Score: 0 09/24/19 24 9:25 AM EDT documented as of this encounter Care Teams Coffin Maker Relationship Specialty Start Date End Date No, Pcp (Do Not Change Name) PCP - General 07/19/24 documented as of this encounter
--- OUTSIDE RECORDS SUMMARY | 2025-01-20 12:43 | XMS_ITS | Encounter Summary ---
Author Organization [facility] Address [address] [place] [phone] Care Team Providers Care Roofing Tile Sorter Name Role Phone No, Pcp (Do Not Change Name) Primary Care Provid er Unavailable Encounter Details Date Type Department Care Team (Late st Contact Info) Description 10/07/2024 Scanned Document INTERFACE DEFAULT [address] [place] [address] System, Provider Not In Social History Tobacco [...] EDT Nutrition [facility] at [address] [place] [address] Marlee Norris, RD 6 [place], [place] [phone] 05/31/2025 3:30 PM EST Office Visit [facility] [address] [phone] Richard Lewis MD [address] [place] [phone] documented as of this encounter Visit Diagnoses Not on filedocumented in this encounter Additional Health Concerns Assessment Noted Time PHQ-9 Depression Total Score: 0 01/27/20 24 8:26 AM EDT documented as of this encounter Care Teams Roofing Tile Sorter Relationship Specialty Start Date End Date No, Pcp (Do Not Change Name) PCP - General 07/19/24 documented as of this encounter
--- OUTSIDE RECORDS SUMMARY | 2025-01-20 12:43 | XMS_ITS | Encounter Summary ---
Author Organization [facility] Address [address] [place] [phone] Care Team Providers Care Fur Blowing Machine Attendant Name Role Phone No, Pcp (Do Not Change Name) Primary Care Provid er Unavailable Encounter Details Date Type Department Care Team (Late st Contact Info) Description 09/30/2024 Scanned Document INTERFACE DEFAULT [address] [place] [address] System, Provider Not In Social History Tobacco [...] EDT Nutrition [facility] at [address] [place] [address] Marlee Norris, RD 6 [place], [place] [phone] 05/31/2025 3:30 PM EST Office Visit [facility] [address] [phone] Richard Lewis MD [address] [place] [address] documented as of this encounter Visit Diagnoses Not on filedocumented in this encounter Additional Health Concerns Assessment Noted Time PHQ-9 Depression Total Score: 0 01/27/20 24 8:26 AM EDT documented as of this encounter Care Teams Fur Blowing Machine Attendant Relationship Specialty Start Date End Date No, Pcp (Do Not Change Name) PCP - General 07/19/24 documented as of this encounter
--- OUTSIDE RECORDS SUMMARY | 2025-01-20 12:43 | XMS_ITS | Encounter Summary ---
Author Organization [facility] Address [address] [place] [address] Care Team Providers Care Commission Broker Name Role Phone No, Pcp (Do Not Change Name) Primary Care Provid er Unavailable Reason for Referral * Physical Medicine (Routine) - New Request Specialty Diagnoses / Procedures Referred By Maria Isabel shahid Referred To Contact Physical Therapy Diagnoses Weakness Muscle spasm Richard Lewis MD [address] [place] [address] Phone: tel: fax: Referral ID Status Reason Start Date Expiration Date Visits Requested Visits Authorized [id number] New Request Specialty Services Required 07/26/2024 07/26/2025 1 1 Reason for Visit * Reason Onset Date Comments Triage 07/26/2024 Increased muscle spasms Encounter Details Date Type Department Care Team (Late st Contact Info) Description 07/26/2024 Telephone [facility] [address] [address] Richard Lewis MD [address] [place] [address] Triage (Increased muscle spasms ) [...] AM EDT Nutrition Allergy & Immunology at [address] [place] [address] [facility] [address] [place] [address] Marlee Norris, ANNA MARIE [address] [place] [phone] 05/31/2025 3:30 PM EST Office [facility] [address] [place] [address] [address] [place] [address] Richard Lewis MD [address] [place] [phone] Scheduled Referrals Name Type Priority Associated Diagnoses [...] documented as of this encounter Care Teams Commission Broker Relationship Specialty Start Date End Date No, Pcp (Do Not Change Name) PCP - General 07/19/24 documented as of this encounter
--- OUTSIDE RECORDS SUMMARY | 2025-01-20 12:43 | XMS_ITS | Encounter Summary ---
Author Organization [facility] Address [address] [place] [phone] Care Team Providers Care Pickle Processor Name Role Phone No, Pcp (Do Not Change Name) Primary Care Provid er Unavailable Reason for Visit * Reason Onset Date Comments Other 01/17/2025 Encounter Details Date Type Department Care Team (Late st Contact Info) Description 01/17/2025 Telephone [facility] [address] [place] [address] Richard Lewis MD [address] [place] [phone] Other Social History Tobacco Use Types Packs/Day [...] Telephone Encounter - Peggy Tinoco RN - 01/18/2025 12:36 PM EDT Spoke with patient. RN discussed with MD and this is not uncommon as she is on high doses of medications that effect cognition. This is documented and not a new symptoms and may be something to keep track of. Advised her to see if her confusion peaks with certain times or after certain medications. * Telephone Encounter - Lianne Palomo, PCT - 01/17/2025 3:38 PM EDT Patient stated that she is experiencing confusion at times. Is this normal for her illness? [phone] documented in this encounter Plan of Treatment Upcoming Encounters Date Type Department Care Team (Late st Contact Info) Description 02/18/2025 9:30 AM EDT Nutrition Allergy & Immunology at 6 [facility] 6 [facility] [address] [place], [place] [phone] Marlee Norris, ANNA MARIE 6 [place], [place] [phone] 05/31/2025 3:30 PM EST Office Visit [facility] [address] [place] [address] [address] [place], [place] [phone] Richard Lewis MD [address] [place] [phone] documented as of this encounter Visit Diagnoses Not on filedocumented in this encounter Additional Health Concerns Assessment Noted Time PHQ-9 Depression Total Score: 0 01/27/20 24 8:26 AM EDT documented as of this encounter Care Teams Pickle Processor Relationship Specialty Start Date End Date No, Pcp (Do Not Change Name) PCP - General 07/19/24 documented as of this encounter
--- OUTSIDE RECORDS SUMMARY | 2025-01-20 12:43 | XMS_ITS | Encounter Summary ---
Author Organization [facility] Address [address] [place] [phone] Care Team Providers Care Director Treasurer Name Role Phone No, Pcp (Do Not Change Name) Primary Care Provid er Unavailable Encounter Details Date Type Department Care Team (Late st Contact Info) Description 03/08/2024 Scanned Document INTERFACE DEFAULT [address] [place] [phone] System, Provider Not In Social History Tobacco [...] EDT Nutrition [facility] at [address] [place] [address] Marlee Norris, ANNA MARIE [address] [place] [address] 05/31/2025 3:30 PM EST Office Visit [facility] [address] [address] Richard Lewis MD [address] [place] [phone] documented as of this encounter Procedures Procedure [...] documented as of this encounter Care Teams Director Treasurer Relationship Specialty Start Date End Date No, Pcp (Do Not Change Name) PCP - General 07/19/24 documented as of this encounter
--- OUTSIDE RECORDS SUMMARY | 2025-01-20 12:43 | XMS_ITS | Clinical Summary ---
Author Organization [facility] Address [address] [place] [phone] Phone Care Team Providers Care Inlayer Name Role Phone Gustavo Suarez DO Primary Care Provider Ellie Kan PA Unavailable [phone] Allergies Active Allergy Reactions Criticality Noted Date [...] that she has discussed this with her engineering drawings checker who thought that it was reasonable to continue with the estradiol patch. She is on an anticoagulant which would decrease the risk of stroke associated with the VTE. I will see if I can contact her engineering drawings checker for some further guidance and also do [...] formulations. However, I do believe that her engineering drawings checker should weigh in on this as well. Therefore, I will send a copy of today's note. Her current dose of estradiol is 0 0.075 mg per 24 hours changed weekly. I cannot find in the chart where her previous dose was but according to the notes it was decreased to this current dose. If her engineering drawings checker is in agreement, she will call when [...] 12/22/2024 Refill [facility] [address] [place] [address] [place] [address] Valeria Villalobos, NIKKO Medication Refill (Refill fro [...] HIV ONE-TIME SCREENING (18-6 5 YEARS) 01/09/1978 COLOGUARD 01/09/2005 COLONOSCOPY 01/09/2005 COLORECTAL CANCER SCREENING 01/09/2005 FIT TEST 01/09/2005 FOBT 01/09/2005 SIGMOIDOSCOPY 01/09/2005 VIRTUAL COLONOSCOPY 01/09/2005 PNEUMOCOCCAL VACCINES (50+ years) (1 of 1 - PCV) 01/09/2010 ZOSTER VACCINES (2 of 2) 02/02/2018 12/08/2017 DEPRESSION SCREENING 01/14/2023 01/14/2022 INFLUENZA VACCINE (#1) 2024 03/12/2016 COVID-19 VACCINE (3 - 2024-2 6 season) 2025 09/14/2021, 12/13/2020 OSTEOPOROSIS SCREENING INITI AL (ONE-TIME) 01/09/2025 SMOKING Hx and SMOKELESS TOBACCO SCREENING 06/16/2025 [...] & B [employer] PPO MEDICARE REPLACEMENT CIGNA [facility] MEDICARE PART A & B AET[employer] PPO MEDICARE REPLACEMENT CIGNA TPA MEDICARE PART A & B [employer] [place] [id number] MEDICARE PART A & B [facility] [place] [id number] MEDICARE PART A & B [facility] MEDICARE REPLACEMENT CIGNA TPA MEDICARE PART A & B [employer] [place]PO [place] [id number] MEDICARE PART A & B [employer] PPO MEDICARE REPLACEMENT [place] [id number] MEDICARE PART A & B AET[employer] PPO MEDICARE [place] [id number] MEDICARE PART A & B AETNA O MEDICARE REPLACEMENT CIGNA TPA Care Teams Inlayer Relationship Specialty Start Date End Date Gustavo Suarez DO [address] [place] [phone] PCP - General Internal Medicine 02/16/18 Ellie Kan PA [address] [place] [address] Physician Business Solution Analyst 07/14/24 Additional Source Comments The information contained in this document represents components of the legal health record. It is not the complete legal health record.[facility]
--- OUTSIDE RECORDS SUMMARY | 2025-01-20 12:43 | XMS_ITS | Encounter Summary ---
Author Organization [facility] Address [address] [place] [phone] Care Team Providers Care Service Writer Name Role Phone No, Pcp (Do Not Change Name) Primary Care Provid er Unavailable Encounter Details Date Type Department Care Team (Late st Contact Info) Description 09/24/2024 Documentation [facility] [address] [place] [phone] Richard Lewis MD [address] [place] [phone] Social History Tobacco Use Types [...] EDT Nutrition Allergy & Immunology at 6 [facility] 6 [facility] [address] [place], [place] [phone] Marlee Norris, ANNA MARIE 6 [place], [place] [phone] 05/31/2025 3:30 PM EST Office Visit [facility] [address] [place] [address] [address] [place], [place] [phone] Richard Lewis MD [address] [place] [phone] documented as of this encounter Visit Diagnoses Not on filedocumented in this encounter Additional Health Concerns Assessment Noted Time PHQ-9 Depression Total Score: 0 01/27/20 24 8:26 AM EDT documented as of this encounter Care Teams Service Writer Relationship Specialty Start Date End Date No, Pcp (Do Not Change Name) PCP - General 07/19/24 documented as of this encounter
--- OUTSIDE RECORDS SUMMARY | 2025-01-20 12:43 | XMS_ITS | Encounter Summary ---
Author Organization [facility] Address [address] [place] [phone] Care Team Providers Care Fall Internship Name Role Phone No, Pcp (Do Not Change Name) Primary Care Provid er Unavailable Reason for Visit * Reason Onset Date Comments Triage 09/29/2024 ? Medication den ial Encounter Details Date Type Department Care Team (Late st Contact Info) Description 09/29/2024 Telephone [facility] 6 [facility] 2[address] [place] [address] Richard Lewis MD [address] [place] [phone] Triage (? Medication denial ) [...] AM EDT Nutrition Allergy & Immunology at [address] [place] [address] Marlee Norris, RD [address] [place] [phone] 05/31/2025 3:30 PM EST Office Visit [facility] [address] [place] [address] [address] [place] [address] Richard Lewis MD [address] [place] [phone] documented as of this encounter Visit Diagnoses Not on filedocumented in this encounter Additional Health Concerns Assessment Noted Time PHQ-9 Depression Total Score: 0 01/27/20 24 8:26 AM EDT documented as of this encounter Care Teams Fall Internship Relationship Specialty Start Date End Date No, Pcp (Do Not Change Name) PCP - General 07/19/24 documented as of this encounter
--- OUTSIDE RECORDS SUMMARY | 2025-01-20 12:43 | XMS_ITS | Encounter Summary ---
Author Organization [facility] Address [address] [place] [phone] Care Team Providers Care Medical Staff Credentialing Coordinator Name Role Phone No, Pcp (Do Not Change Name) Primary Care Provid er Unavailable Encounter Details Date Type Department Care Team (Late st Contact Info) Description 10/20/2024 Scanned Document INTERFACE DEFAULT [address] [place] [phone] System, Provider Not In Social History Tobacco [...] EDT [facility] at [address] [place] [address] Marlee Norris, RD 6 [place], [place] [phone] 05/31/2025 3:30 PM EST Office Visit [facility] [address] [phone] Richard Lewis MD [address] [place] [phone] documented as of this encounter Visit Diagnoses Not on filedocumented in this encounter Additional Health Concerns Assessment Noted Time PHQ-9 Depression Total Score: 0 01/27/20 24 8:26 AM EDT documented as of this encounter Care Teams Medical Staff Credentialing Coordinator Relationship Specialty Start Date End Date No, Pcp (Do Not Change Name) PCP - General 07/19/24 documented as of this encounter
== END 2025-01-20 11:20 | disposition home or self-care (01) ==
LOC: HO.HMCSH 10:36
PROVIDERS: Visit Provider Physician Assistant Medical
DX: G25.82 Stiff-man syndrome (principal); R33.9 Retention of urine, unspecified; N39.3 Stress incontinence (female) (male); R39.15 Urgency of urination; I10 Essential (primary) hypertension

== ENCOUNTER → 2025-01-20 10:36 | Outpatient (BNVA) | payer OTHER, SELFPAY | PROVIDERS: Visit Provider Physician Assistant Medical | DX: G25.82 Stiff-man syndrome (principal); N39.46 Mixed incontinence; I10 Essential (primary) hypertension; R33.9 Retention of urine, unspecified | CPT/HCPCS: 96127 ==

== ENCOUNTER 2025-03-02 14:39 | Emergency (ER) | payer OTHER, MEDICAID, SELFPAY ==
--- NOTE | ~2025-03-02 | CT_ITS ---
CLINICAL HISTORY: LLQ pain CT abdomen and pelvis with contrast Comparison: None available Findings: No consolidation at the lung bases. Status post cholecystectomy and hysterectomy. Unremarkable bladder. Focal calcification of the splenic capsule. The other solid organs are unremarkable. No bowel wall thickening or dilation. The appendix is not visualized. No secondary signs of acute appendicitis. Colonic diverticulosis. Moderately increased stool quantity. No aneurysm. Severe calcified atherosclerotic disease. No lymphadenopathy. No ascites. No acute osseous abnormality. Multilevel degenerative change is most prominent at L4/L5 with moderate to severe central spinal canal stenosis. Moderate to severe left foraminal stenosis is present at L5/S1. Right flank sacral nerve stimulator. Intact right total hip arthroplasty. Impression: Moderately increased stool quantity may indicate constipation. This document has been electronically signed by: Sheryl Fraser MD on 03/02/2025 19:00:22
[2025-03-02 15:01] VITALS: BP 169/65; PULSE 81; RESP 16; TEMP 36.6; O2SAT 99; BMI 23.2
--- NOTE | 2025-03-02 15:01 | ED.GENADULT ---
HPI - General Adult General Chief complaint: Abdominal Pain Stated complaint: severe L side lower abd Time Seen by Provider: 03/02/25 16:48 Source: patient, family and old records reviewed Mode of arrival: ambulatory Limitations: no limitations History of Present Illness ED Provider: DR. 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 No dysuria, no frequency urination, no blood in the urine, no fever, no chills. Patient's spoke with her salt washer who recommended to come to the hospital for further evaluation. Related Data Home Medications ?Medication ?Instructions ?Recorded ?Confirmed estradiol 0.075 mg/24 hr weekly 1 patch transdermal WE@0900 08/14/22 01/20/25 transdermal patch gabapentin 600 mg tablet 1,200 mg PO DAILY@1900 08/14/22 01/20/25 lamotrigine 200 mg tablet,extended 400 mg PO DAILY 11/20/22 01/20/25 release 24 hr apixaban 5 mg tablet (Eliquis) 5 mg PO BID 06/23/24 01/20/25 dicyclomine 10 mg capsule 10 mg PO QID 06/23/24 01/20/25 miscellaneous medical supply ea miscellaneous 08/19/24 01/20/25 immune globu G 5 gram/50 mL(10 ml IV 11/19/24 12/23/24 %)-gly-IgA ave 46 mcg/mL injection soln (Gamunex-C) diazepam 10 mg/spray (0.1 mL) mg intranasal muscle spasm 12/23/24 01/20/25 nasal spray (Valtoco) diazepam 5 mg tablet 10 mg PO BID PRN 12/23/24 01/20/25 diazepam 5 mg tablet (Valium) 5 mg PO BID PRN 12/23/24 01/20/25 immune glob G 20 gram/200 ml IV 12/23/24 12/23/24 mL(10%)-gly-IgA ave 46 mcg/mL injection soln (Gamunex-C) Previous Rx's ?Medication ?Instructions ?Recorded rollator #1 ea 12/23/22 epinephrine 0.3 mg/0.3 mL 0.3 mg (0.3 mL) IM Q10M PRN 06/23/24 injection, auto-injector anaphylaxis #2 ea Portable Mobility Bed rail #2 ea 08/20/24 baclofen 20 mg tablet 20 mg PO Q4H muscle spasm 90 days 09/24/24 #540 tabs omeprazole 20 mg capsule,delayed 20 mg PO BID 90 days #180 caps 09/29/24 release ergocalciferol (vitamin D2) 1,250 1,250 mcg PO Q2W 90 days #7 caps 01/20/25 mcg (50,000 unit) capsule ranolazine 500 mg tablet,extended 500 mg PO BID #180 tabs 02/18/25 release,12 hr rosuvastatin 20 mg tablet 20 mg PO BEDTIME #90 tabs 02/22/25 polyethylene glycol 3350 17 17 g PO DAILY #119 grams 03/02/25 gram/dose oral powder (ClearLax) Allergies Allergy/AdvReac Type Severity Reaction Status Date / Time Beta-Blockers Allergy Mild blood Verified 03/02/25 15:02 (Beta-Adrenergic Bloc pressure drop house dust Allergy Mild Anaphylaxis Verified 03/02/25 15:02 penicillin G (Penicillin G) Allergy Mild RASH Verified 03/02/25 15:02 penicillin V Allergy Unknown Abdominal Verified 03/02/25 15:02 Pain adhesive Allergy Blister Verified 03/02/25 15:02 mold Allergy Headache Verified 03/02/25 15:02 [id number]-[id number]-DgG Reductase Allergy Weakness Verified 03/02/25 15:02 Inhibitor codeine (Codeine) AdvReac Mild SEVERE Verified 03/02/25 15:02 ABDOMINAL PAIN Review of Systems Review of Systems: All other systems are reviewed and are negative Constitutional: Reports as per HPI and Reports no additional constitutional complaints Eyes: Reports as per HPI and Reports no additional eye complaints Reports system reviewed and no additional complaints, except as documented Cardiovascular: Reports as per HPI and Reports no additional cardiovascular complaints Respiratory: Reports as per HPI and Reports no additional respiratory complaints Gastrointestinal: Reports as per HPI and Reports no additional gastrointestinal complaints Genitourinary: Reports no additional female genitourinary complaints Musculoskeletal: Reports no additional musculoskeletal complaints Skin/Breast: Reports system reviewed and no additional complaints, except as docu Psychiatric: Reports no additional psychiatric complaints Endocrine: Reports no additional endocrine complaints Hematologic/Lymphatic: Reports no additional hematologic/lymphatic complaints Allergic/Immunologic: Reports no additional allergic/immunologic complaints Reports system reviewed and no additional complaints, except as documented and Reports Abnormal speech present [facility] Past Medical History Medical History Hypertension Urinary urgency Urinary, incontinence, stress female Muscle weakness Blurry vision Intestinal cramps Bladder retention Carpal tunnel syndrome Right hand pain Overweight (BMI 25.0-29.9) Intermittent palpitations Neurogenic bladder History of mammogram (~2022) Ataxia Coronary artery spasm Coronary artery anomaly Hair loss Hemorrhoids Diverticulosis Tubular adenoma Eczema Fibrocystic breast disease Herpes simplex Hypersomnia Witnessed apneic spells Arthritis Difficulty swallowing Weakness On anticoagulant therapy Lumbar spondylosis Spinal stenosis in cervical region Restless legs syndrome (RLS) Anemia Fatigue Cervical spondylosis Anxiety Bipolar disease, manic Occasional tremors Obstructive sleep apnea Insomnia GERD (gastroesophageal reflux disease) Cardiac microvascular disease TIA (transient ischemic attack) Atrial fibrillation Cardiomyopathy Surgical History H/O cervical discectomy History of partial hysterectomy History of tonsillectomy Hx of hand surgery History of radiofrequency ablation procedure for cardiac arrhythmia History of esophagogastroduodenoscopy (EGD) H/O colonoscopy (~10/05/20) H/O radiofrequency ablation (RFA) of nerve of lumbar spine Hx of cervical spine surgery Hx of shoulder surgery H/O: knee surgery Hx of cholecystectomy History of carpal tunnel release Hx of appendectomy Family History Family History Father Dementia Cancer Mother Cancer COPD (chronic obstructive pulmonary disease) Multiple sclerosis Daughter Myasthenia Social History Social History Household Members: Significant Other Housing: House Are you a primary care partner to a significant other at home: No Do you presently have visiting nurse 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, CAR SHIFTER) Alcohol intake: current Alcohol intake frequency: does not drink Patient Tobacco Use Status: Former Tobacco user Advance Directives: Yes Advance Directives on File: Yes Advance Directives Date on File: 04/10/23 service: No Current occupational status: disabled Cognitive needs: Yes (cane ) Hearing needs: No Vision needs: Yes (rx glasses) Physical Exam ED Vital Signs: Vital Signs - 24 hr 03/02/25 15:01 03/02/25 18:22 Temperature 97.8 F 98.0 F Pulse Rate 81 80 Respiratory Rate 16 16 Blood Pressure 169/65 H 141/67 H Pulse Oximetry 99 99 Oxygen Delivery Method Room Air Room Air BMI result Body Mass Index 23.2 Vital signs have been reviewed and appear to be correct. Blood pressure elevated. Heart rate normal. Respiratory rate normal. Temperature normal. Oxygen saturation normal. Appearance: Alert. Oriented X3. No acute distress. Head: Normal external exam. Normocephalic. Atraumatic. No Matson signs noted. No raccoon eyes noted Eyes: PERRLA. EOMI. Conjunctiva and sclera normal. Eyelids normal. ENT: TM's Normal. Pharynx normal. Uvula midline. Moist mucous membranes. No trismus noted. No drooling noted. No muffled voice noted. Neck: Normal inspection. Neck supple. FROM. No adenopathy. Thyroid Normal. No meningeal signs. No neck mass noted. CVS: Normal heart rate and rhythm. Heart sound normal. No murmurs noted. Pulses normal throughout. Respiratory: No respiratory distress. Painless inspiration. Breath sounds normal. No wheezes/rales/rhonchi noted. Chest nontender. No accessory muscle usage noted or decreased air movement noted. Abdomen: LLQ tenderness, no rebound tenderness, no guarding, Bowel sounds normal in all 4 quadrants. No distention noted. No organomegaly noted. No visible injury noted. Back: No CVA tenderness. Full range of motion noted. Skin: Skin warm and dry. Normal skin color. Normal skin turgor. No rashes/lesions/lacerations noted. Extremities: No lower extremity edema. Extremities exhibit normal range of motion. Extremities nontender. Neuro: Oriented X 3. Cranial nerve exam: II-XII are grossly intact No motor deficit. No sensory deficit. Reflexes normal. 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 Took Dicyclomine. She is having cramp in the left lower abdomen [address] Sofia who recommended her to come to ED for eval. Rapid medical screening exam was performed. Patient stable at time of evaluation. Carolina Thomason DO 03/02/25 [id number] Reevaluation(s) Reevaluation #1: 65-year-old female presents for evaluation of abdominal pain, patient has unremarkable labs at baseline, CT abdomen and pelvis reveals no acute intra-abdominal pathology except for constipation patient was given milk of magnesia, patient feels better at the bed side will take patient home and follow-up with her salt washer. Time: 19:47 Medications Administered Discontinued Medications Generic Name Dose Route Start Last Admin Trade Name Juniorq PRN Reason Stop Dose Admin Hydromorphone HCl 1 mg 03/02/25 17:58 03/02/25 18:24 Hydromorphone Hcl 1 Mg/Ml Syringe IVPUSH 03/02/25 17:59 1 mg ONCE ONE Administration Protocol Iohexol 100 ml 03/02/25 18:15 03/02/25 18:16 Iohexol 350 Mg/Ml 100 Ml Infus..Btl IV 03/02/25 18:16 85 ml ONCE ONE Administration Ketorolac Tromethamine 15 mg 03/02/25 17:58 03/02/25 18:24 Ketorolac Tromethamine 15 Mg/Ml Vial IVPUSH 03/02/25 17:59 15 mg ONCE ONE Administration Medical Decision Making Differential Diagnosis Differential Diagnoses: The differential diagnosis associated with the presentation includes (Pancreatitis, gastritis, colitis, diverticulitis acute appendicitis, SBO, UTI, constipation electrolyte derangement, severe anemia.) Admission/Observation Consideration of admission/observation: Escalation of care including admission/observation considered Lab Data MDM Lab Attestation statement: I reviewed the patient's lab results. 03/02/25 15:35 03/02/25 15:35 Labs: Lab Results 03/02/25 03/02/25 Range/Units 15:32 15:35 WBC 3.9 L (4.8-10.8) X10*3/uL RBC 3.90 L (4.20-5.50) X10*6/uL Hgb 12.1 (12.0-16.0) g/dl Hct 35.9 L (37.0-47.0) % MCV 92.1 (80.0-98.0) fL MCH 31.0 (27.0-33.0) pg MCHC 33.7 (31.0-35.0) g/dl RDW 14.5 (11.0-16.0) % Plt Count 317 (160-400) X10*3/uL MPV 9.3 L (9.4-12.3) fL Immature Gran % (Auto) 0.3 (0.0-0.4) % Neut % (Auto) 58.2 (45-73) % Lymph % (Auto) 32.6 (20-40) % Cooper % (Auto) 7.1 (2-11) % Eos % (Auto) 1.5 (0-4) % Baso % (Auto) 0.3 (0-2) % Lymph # (Auto) 1.3 (1.2-4.9) X10*3/uL Cooper # (Auto) 0.3 (0.1-1.2) X10*3/uL Eos # (Auto) 0.1 (0.0-0.4) X10*3/uL Baso # (Auto) 0.0 (0.0-0.2) X10*3/uL Abs Immat Gran (auto) 0.01 (0.00-0.03) X10*3/uL Absolute Neuts (auto) 2.3 (2.0-8.3) x10*3/uL Absolute Nucleated RBC 0.000 (0.0-0.012) X10*3/uL Nucleated RBC % (auto) 0.0 (0.0-0.2) /100WBC Sodium 140 (135-145) mmol/L Potassium 3.7 (3.3-5.1) mmol/L Chloride 107 (96-108) mmol/L Carbon Dioxide 27 (22-29) mmol/L Anion Gap 10 L (12-20) BUN 13 (9-16) mg/dL Creatinine 0.77 (0.5-1.4) mg/dL Estim Creat Clear Calc 57.5 Estimated GFR > 60 Random Glucose 112 (60-115) mg/dL Calcium 8.9 (8.4-10.2) mg/dL Magnesium 2.1 (1.6-2.6) mg/dL Total Bilirubin 0.6 (0.0-1.0) mg/dL AST 33 H (5-31) U/L ALT 16 (0-31) U/L Alkaline Phosphatase 67 (39-117) U/L Total Protein 8.2 H (6.5-8.0) g/dL Albumin 4.1 (3.5-5.0) g/dL Lipase 16 (8-78) U/L Urine Color Yellow Urine Appearance Clear Urine pH 7.0 (5.0-9.0) Ur Specific [place] <= 1.005 (1.005-1.025) Urine Protein Negative (Neg-Trace) mg/dL Urine Glucose (UA) Negative (Negative) mg/dL Urine Ketones Negative (Negative) mg/dL Urine Blood Negative (Negative) Urine Nitrite Negative (Negative) Ur Leukocyte Esterase Negative (Negative) Independent Interpretation I performed an independent interpretation of an: CT Scan (Abdomen pelvis:Moderately increased stool quantity may indicate constipation.) Radiology Impression Discussion of test interpretation with radiology: I have reviewed the radiologist's reading. Discharge Plan Discharge Clinical Impression: Constipation Patient Disposition: Home, Self-Care Instructions: Constipation (ED) Prescriptions: New polyethylene glycol 3350 [ClearLax] 17 gram/dose powder 17 g PO DAILY Qty: 119 0RF No Action (DME) rollator See Rx Instructions .Route .MEDSUPPLY Qty: 1 0RF Rx Instructions: As directed miscellaneous medical supply [facility] [place] miscellaneous Rx Instructions: Bed Assist Rail (DME) Portable Mobility Bed rail See Rx Instructions .Route .MEDSUPPLY Qty: 2 0RF Rx Instructions: As directed omeprazole 20 mg capsule,delayed release(DR/EC) 20 mg PO BID 90 Days Qty: 180 1RF diazepam 5 mg tablet 10 mg PO BID PRN ranolazine 500 mg tablet extended release 12 hr 500 mg PO BID Qty: 180 3RF rosuvastatin 20 mg tablet 20 mg PO BEDTIME Qty: 90 3RF estradiol 0.075 mg/24 hr patch weekly 1 patch transdermal WE@0900 gabapentin 600 mg tablet 1,200 mg PO DAILY@1900 lamotrigine 200 mg tablet extended release 24hr 400 mg PO DAILY baclofen 20 mg tablet 20 mg PO Q4H 90 Days Qty: 540 3RF Gamunex-C 20 gram/200 mL (10 %) solution IV Valtoco 10 mg/spray (0.1 mL) spray,non-aerosol intranasal diazepam [Valium] 5 mg tablet 5 mg PO BID PRN ergocalciferol (vitamin D2) 1,250 mcg (50,000 unit) capsule 1,250 mcg PO Q2W 90 Days Qty: 7 3RF dicyclomine 10 mg capsule 10 mg PO QID epinephrine 0.3 mg/0.3 mL auto-injector 0.3 mg IM Q10M PRN (Reason: anaphylaxis) Qty: 2 1RF Rx Instructions: for 2 doses Eliquis 5 mg tablet 5 mg PO BID Gamunex-C 5 gram/50 mL (10 %) solution IV Referrals: Ellie Kan PA-C [Primary Care Provider, Internal Medicine] Print Language: Urdu
[2025-03-02 15:43] LABS: MANUAL DIFF FLAG NO
[2025-03-02 15:45] LABS: Hematocrit 35.9 % (37.0-47.0); Hemoglobin 12.1 g/dl (12.0-16.0); Imm Gran Abs Auto 0.01 X10*3/uL (0.00-0.03); Imm Gran Pct Auto 0.3 % (0.0-0.4); Lymphocytes Absolute Auto 1.3 X10*3/uL (1.2-4.9); Mean Corpuscular HGB Conc 33.7 g/dl (31.0-35.0); Mean Corpuscular Hemoglobin 31.0 pg (27.0-33.0); Mean Corpuscular Volume 92.1 fL (80.0-98.0); NRBC Abs Auto 0.000 X10*3/uL (0.0-0.012); NRBC Pct Auto 0.0 /100WBC (0.0-0.2); Platelet Count 317 X10*3/uL (160-400); Red Blood Count 3.90 X10*6/uL (4.20-5.50); White Blood Count 3.9 X10*3/uL (4.8-10.8)
[2025-03-02 15:46] LABS: Appearance Urine Clear; Glucose Urine UA Negative (Negative); PH 7.0 (5.0-9.0); Specific Gravity - Urine <= 1.005 (1.005-1.025)
[2025-03-02 15:59] LABS: Alanine Aminotransferase 16 U/L (0-31); Albumin Level 4.1 g/dL (3.5-5.0); Alkaline Phosphatase 67 U/L (39-117); Anion Gap 10 (12-20); Aspartate Amino Transferase 33 U/L (5-31); Blood Urea Nitrogen 13 mg/dL (9-16); Calcium 8.9 mg/dL (8.4-10.2); Carbon Dioxide 27 mmol/L (22-29); Chloride 107 mmol/L (96-108); Creatinine Clr Calc Pharmacy 57.5; Estimated Glomerular Filt Rate > 60; Lipase 16 U/L (8-78); Magnesium 2.1 mg/dL (1.6-2.6); Potassium 3.7 mmol/L (3.3-5.1); Sodium 140 mmol/L (135-145); Total Protein 8.2 g/dL (6.5-8.0)
[2025-03-02] MEDS: iohexoL 350 MG/ML 100 ML INFUS..BTL IV (18:16)
[2025-03-02 18:22] VITALS: BP 141/67; PULSE 80; RESP 16; TEMP 36.7; O2SAT 99
[2025-03-02 19:50] VITALS: BP 127/72; PULSE 65; RESP 16; O2SAT 99
[2025-03-02 19:57] VITALS: BP 127/72; PULSE 65; RESP 16; TEMP 36.7; O2SAT 99
--- OUTSIDE RECORDS SUMMARY | 2025-03-02 20:19 | XMS_ITS | Clinical Summary ---
Author Organization [facility] Address [address] [address] Phone Care Team Providers Care Installation And Repair Technician Name Role Phone Gustavo Suarez DO Primary Care Provider [phone] Allergies Active Allergy Reactions Criticality Noted Date [...] formulations. However, I do believe that her sales representative printing paper should weigh in on this as well. Therefore, I will send a copy of today's note. Her current dose of estradiol is 0 0.075 mg per 24 hours changed weekly. I cannot find in the chart where her previous dose was but according to the notes it was decreased to this current dose. If her sales representative printing paper is in agreement, she will call when [...] this topic Insurance [employer] MCR Adv PPO ([id number]) ) Formerly [facility] Open Access [id number]) Care Teams Installation And Repair Technician Relationship Specialty Start Date End Date Gustavo Suarez DO [address] [place] [address] PCP - General 05/15/20
--- OUTSIDE RECORDS SUMMARY | 2025-03-02 20:19 | XMS_ITS | Clinical Summary ---
Author Organization [facility] Address [address] [place] [address] Care Team Providers Care Disulfurizer Tender Name Role Phone Gustavo Suarez DO [...] 5 12/01/2023 Active ergocalciferol (VITAMIN D2) capsule 66868 units Take 1 capsule (50,000 Units total) [...] age to complete this topic Care Teams Disulfurizer Tender Relationship Specialty Start Date End Date Gustavo Suarez DO [address] [place] [phone] PCP - General Internal Medicine 06/23/18
--- OUTSIDE RECORDS SUMMARY | 2025-03-02 20:19 | XMS_ITS | Clinical Summary ---
Author Organization [address] Address [address] [place] [address] Care Team Providers Care Director Talent Management Name Role Phone No, Pcp (Do Not [...] 05/2021 Penicillins Hives,Other (See Comments),Rash High 07/09/2017 Pbhiroh-Zqi-Ydj Reductase Inhibitors Other (See Comments) Medium 07/19/2024 Joint pain Medications gabapentin (NEURONTIN) 600 mg tablet Take 2 tablets (1,200 mg total) by mouth at bedtime. 4 Active ELIQUIS 5 mg Tab tablet 3 Active lamoTRIgine XR (LAMICTAL XR) 200 mg [...] 2 5 Active diazePAM (VALIUM) 5 mg tabletIndications:M uscle cramping Take 2 tablets (10mg) in the morning, 2 tablets (10 mg) in the afternoon, then 1 tablet (5mg) in the evening and 1 tablet (5mg) at bedtime, may take another tablet PRN 210 tablet 2 5 Active baclofen (LIORESAL) 20 mg tablet Take 1 tablet (20 mg total) by mouth 3 (three) times daily. 90 tablet 5 5 Active diazePAM (VALIUM) 10 mg tablet Take 1 tablet by mouth in the morning. Take 1 tablet by mouth in afternoon. Take half tablet at dinner and take half tablet at bedtime. May take half tablet as needed prn. 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 Encounters Date Type Department Care Team Description 03/02/2025 Telephone [facility] [address] [place] [address] Richard Lewis MD Triage 01/28/2025 Telephone [facility] [address] [place] [address] Richard Lewis MD Other 01/21/2025 Refill [facility] [address] [place] [address] Richard Lewis MD Medication Refill 01/20/2025 Scanned Document INTERFACE DEFAULT [address] [place] [address] System, Provider Not In 01/19/2025 Scanned Document INTERFACE DEFAULT [address] [place] [address] System, Provider Not In 01/17/2025 Telephone [facility] [address] [place] [address] Richard Lewis MD Other 01/14/2025 Telephone [facility] & [facility] [address] [place] [address] Richard Lewis MD Other 01/07/2025 Telephone [facility] [address] [place] [address] Richard Lewis MD Triage 12/30/2024 Refill [facility] [address] [place] [address] Richard Lewis MD Medication Problem 12/29/2024 Telephone [facility] [address] [place] [phone] Richard Lewis MD Medication Problem 12/21/2024 1:00 PM EDT Office Visit [facility] [address] [place] [address] Richard Lewis MD Stiff person spectrum disorder (Primary Dx); Muscle cramping; White matter abnormality on MRI of brain 12/09/2024 Telephone [facility] [address] [place] [address] Richard Lewis MD Triage 11/30/2024 Telephone [facility] [address] [place] [address] Richard Lewis MD Other from Last 3 [...] EST Office Visit [facility] [address] [place] [phone] Richard Lewis MD [address] [place] [address] Health Maintenance Due Date Last [...] Influenza vaccine 12/03/2024 03/12/2016 Covid-19 vaccine series (3 - season) 2025 09/14/2021, 12/13/2020 Osteoporosis screening (bone density) 01/09/2025 RSV Immunization (1 - 1-dose 75+ series) 01/09/2035 Cervical cancer screening Discontinued Meningococcal B Vaccine Aged Out No l onger eligible based on patient's age to complete this topic Meningococcal Vaccine Aged Out No kamla holly eligible based on patient's age to complete this topic Insurance [facility] [facility] DEBI IRBY [id number] MEDICARE [employer] [facility] MEDICARE [employer] [facility] DEBI IRBY [id number] MEDICARE Care Teams Director Talent Management Relationship Specialty Start Date End Date No, Pcp (Do Not Change Name) PCP - General 07/19/24
--- OUTSIDE RECORDS SUMMARY | 2025-03-02 20:19 | XMS_ITS | Encounter Summary ---
Author Organization [facility] Address [address] [place] [address] Care Team Providers Care Network Cabler Name Role Phone No, Pcp (Do Not Change Name) Primary Care Provid er Unavailable Encounter Details Date Type Department Care Team (Late st Contact Info) Description 10/10/2023 Transcribed Orders CARE CENTER SCHEDULING [address] [place] [address] Referral, Self Social History Tobacco [...] Description 05/31/2025 3:30 PM EST Office Visit [facility] & Neuro[facility]Immunology [address] [address] Richard Lewis MD [address] [place] [address] documented as of this encounter Visit Diagnoses Not on filedocumented in this encounter Additional Health Concerns Assessment Noted Time PHQ-9 Depression Total Score: 0 09/24/19 24 9:25 AM EDT documented as of this encounter Care Teams Network Cabler Relationship Specialty Start Date End Date No, Pcp (Do Not Change Name) PCP - General 07/19/24 documented as of this encounter
--- OUTSIDE RECORDS SUMMARY | 2025-03-02 20:19 | XMS_ITS | Encounter Summary ---
Author Organization [facility] Address [address] [place] [phone] Care Team Providers Care Adjuster Piano Action Name Role Phone No, Pcp (Do Not Change Name) Primary Care Provid er Unavailable Encounter Details Date Type Department Care Team (Late st Contact Info) Description 03/26/2024 Scanned Document INTERFACE DEFAULT [address] [place] [address] System, Provider Not In Social History [...] Office Visit [facility] [address] [place] [address] Richard Lewis MD [address] [place] [address] documented as of this encounter Visit Diagnoses Not on filedocumented in this encounter Additional Health Concerns Assessment Noted Time PHQ-9 Depression Total Score: 0 01/27/20 8:26 AM EDT documented as of this encounter Care Teams Adjuster Piano Action Relationship Specialty Start Date End Date No, Pcp (Do Not Change Name) PCP - General 07/19/24 documented as of this encounter
--- OUTSIDE RECORDS SUMMARY | 2025-03-02 20:19 | XMS_ITS | Encounter Summary ---
Author Organization [facility] [employer] [facility] Address [address] [place] [address] Care Team Providers Care Neighborhood Service Center Director Name Role Phone No, Pcp (Do Not Change Name) Primary Care Provid er Unavailable Encounter Details Date Type Department Care Team (Late st Contact Info) Description 08/08/2023 Scanned Document [facility] [address] [place] [phone] Marquita Gallegos MD [address] [place] [phone] Social History Tobacco Use Types Packs/Day [...] EST Office Visit [facility] [address] [place] [phone] Richard Lewis MD [address] [place] [phone] documented as of this encounter Visit Diagnoses Not on filedocumented in this encounter Care Teams Neighborhood Service Center Director Relationship Specialty Start Date End Date No, Pcp (Do Not Change Name) PCP - General 07/19/24 documented as of this encounter
--- OUTSIDE RECORDS SUMMARY | 2025-03-02 20:19 | XMS_ITS | Encounter Summary ---
Author Organization [facility] Address [address] [place] [address] Care Team Providers Care Sales Porter Name Role Phone No, Pcp (Do Not Change Name) Primary Care Provid er Unavailable Reason for Visit * Reason Onset Date Comments Triage 10/10/2023 Encounter Details Date Type Department Care Team (Late st Contact Info) Description 10/10/2023 Telephone [facility] [address] [place] [address] Richard Lewis MD [address] [place] [phone] Triage Social History Tobacco Use Types Packs/Day [...] being worked up for MS at the [facility] and was scheduled to start on Ocrevus in 10/2021. She had hip replacement surgery in Feb 2022 at [facility] and four days s/p surgery, she experienced full body paresis from her neck to her feet. 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 She needed to go to rehab after this event as she required a wheelchair. She occasionally experiences blurry vision but follows regularly with her hand funnel coater. * Telephone Encounter - Katarina Handy - 10/10/2023 11:04 AM EDT Copied from [facility] #[id number]. Topic: General Message - [facility] >> Oct 10, 2023 11:00 AM Katarina Shukla wrote: [facility] MESSAGE Time of call: 11:00 [...] urgently? no Best telephone number for callback: [phone] Best time to return call: any Permission to leave message: yes Katarina Handy CARE Center Crm Administrator documented in this encounter Plan of Treatment Upcoming Encounters Date Type Department Care Team (Late st Contact Info) Description 05/31/2025 3:30 PM EST Office Visit [facility] [address] [address] Richard Lewis MD [address] [place] [address] documented as of this encounter Visit Diagnoses Not on filedocumented in this encounter Additional Health Concerns Assessment Noted Time PHQ-9 Depression Total Score: 0 09/24/19 24 9:25 AM EDT documented as of this encounter Care Teams Sales Porter Relationship Specialty Start Date End Date No, Pcp (Do Not Change Name) PCP - General 07/19/24 documented as of this encounter
--- OUTSIDE RECORDS SUMMARY | 2025-03-02 20:20 | XMS_ITS | Clinical Summary ---
Author Organization [facility] Address [address] [place] [phone] Phone Care Team Providers Care Box Closing Machine Operator Name Role Phone Gustavo Suarez DO Primary Care Provider Ellie Kan PA Unavailable [phone] Allergies Active Allergy Reactions Criticality Noted Date [...] 2 (two) times a day. 04/07/2024 Active valACYclovir (VALTREX) 500 MG tabletIndicatio ns:History of herpes genitalis Take 1 tablet (500 mg total) by mouth 2 (two) times a day. 180 tablet 1 12/22/2024 Active Active Problems Problem Noted Date Diagnosed [...] that she has discussed this with her reel slitter who thought that it was reasonable to continue with the estradiol patch. She is on an anticoagulant which would decrease the risk of stroke associated with the VTE. I will see if I can contact her reel slitter for some further guidance and also do [...] formulations. However, I do believe that her reel slitter should weigh in on this as well. Therefore, I will send a copy of today's note. Her current dose of estradiol is 0 0.075 mg per 24 hours changed weekly. I cannot find in the chart where her previous dose was but according to the notes it was decreased to this current dose. If her reel slitter is in agreement, she will call when [...] 12/22/2024 Refill [facility] [address] [place] [address] Valeria Villalobos CMA Medication Refill (Refill fro Valacyclovir/) from Last [...] Most Recently Relevant to Health [place] [id number] MEDICARE PART A & B AET[employer] O MEDICARE REPLACEMENT CIGNA TPA MEDICARE PART A & B AET[employer] O MEDICARE REPLACEMENT CIGNA TPA MEDICARE PART A & B AET[employer] PPO [place] [address] MEDICARE PART A & B [facility] [place] [id number] MEDICARE PART A [facility] C[place] [address] MEDICARE PART A & B [employer] PPO [place] [address] MEDICARE PART A & B AET[employer] O MEDICARE REPLACEMENT CIGNA TPA Elie PEREIRA PANKAJ [place]ALKER [address] MEDICARE PART A & B AETNA O MEDICARE REPLACEMENT CIGNA TPA MEDICARE PART A & B AET[employer] PPO MEDICARE REPLACEMENT CIGNA TPA Care Teams Box Closing Machine Operator Relationship Specialty Start Date End Date Gustavo Suarez DO [address] [place] [address] PCP - General Internal Medicine 02/16/18 Ellie Kan PA [address] [place] [address] Physician Private Client Advisor 07/14/24 Additional Source Comments The information contained in this document represents components of the legal health record. It is not the complete legal health record.[facility]
--- OUTSIDE RECORDS SUMMARY | 2025-03-02 20:20 | XMS_ITS | Encounter Summary ---
Author Organization [facility] Address [address] [place] [phone] Care Team Providers Care Transportation Maintenance Worker Name Role Phone No, Pcp (Do Not Change Name) Primary Care Provid er Unavailable Reason for Visit * Reason Onset Date Comments Triage 09/29/2024 ? Medication den ial Encounter Details Date Type Department Care Team (Late st Contact Info) Description 09/29/2024 Telephone [facility] 6 [facility] 2nd [place] [address] Richard Lewis MD [address] [place] [address] Triage (? Medication denial ) [...] EST Office Visit [facility] [address] [place] [phone] Richard Lewis MD [address] [place] [address] documented as of this encounter Visit Diagnoses Not on filedocumented in this encounter Additional Health Concerns Assessment Noted Time PHQ-9 Depression Total Score: 0 01/27/20 24 8:26 AM EDT documented as of this encounter Care Teams Transportation Maintenance Worker Relationship Specialty Start Date End Date No, Pcp (Do Not Change Name) PCP - General 07/19/24 documented as of this encounter
--- OUTSIDE RECORDS SUMMARY | 2025-03-02 20:20 | XMS_ITS | Encounter Summary ---
Author Organization [facility] Address [address] [place] [phone] Care Team Providers Care Applied Computer Science Professor Name Role Phone No, Pcp (Do Not Change Name) Primary Care Provid er Unavailable Encounter Details Date Type Department Care Team (Late st Contact Info) Description 01/20/2025 Scanned Document INTERFACE DEFAULT [address] [place] [phone] System, Provider Not In Social History Tobacco [...] EST Office Visit [facility] [address] [place] [address] Richard Lewis MD [address] [place] [phone] documented as of this encounter Visit Diagnoses Not on filedocumented in this encounter Additional Health Concerns Assessment Noted Time PHQ-9 Depression Total Score: 0 01/27/20 24 8:26 AM EDT documented as of this encounter Care Teams Applied Computer Science Professor Relationship Specialty Start Date End Date No, Pcp (Do Not Change Name) PCP - General 07/19/24 documented as of this encounter
--- OUTSIDE RECORDS SUMMARY | 2025-03-02 20:20 | XMS_ITS | Encounter Summary ---
Author Organization [facility] Address [address] [place] [address] Care Team Providers Care Travertine Installer Name Role Phone No, Pcp (Do Not Change Name) Primary Care Provid er Unavailable Encounter Details Date Type Department Care Team (Late st Contact Info) Description 09/24/2024 Documentation [facility] [address] [place] [phone] Richard Lewis MD [address] [place] [address] Social History Tobacco Use Types [...] Office Visit [facility] 6 [facility] 2nd Floor [place], [place] [phone] Richard Lewis MD [address] [place] [phone] documented as of this encounter Visit Diagnoses Not on filedocumented in this encounter Additional Health Concerns Assessment Noted Time PHQ-9 Depression Total Score: 0 01/27/20 8:26 AM EDT documented as of this encounter Care Teams Travertine Installer Relationship Specialty Start Date End Date No, Pcp (Do Not Change Name) PCP - General 07/19/24 documented as of this encounter
--- OUTSIDE RECORDS SUMMARY | 2025-03-02 20:20 | XMS_ITS | Data Portability ---
Author Organization [place] [facility] Address [address] [place] [phone] Assessment No assessment recorded. 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,[place] [address], [place], [address] , [facility] - [facility] 10:19:25 Gastroeso phageal reflux disease without esophagit is 263867371 Active 2023 GISELA PRUETT MD [address] [facility],[place] [address], [facility] [place], [address] , [facility] - [facility] 10:19:44 Chronic hoarsenes s 76560907107 05 Active 2023 GISELA PRUETT MD [address] [facility],[place] [address], [facility] [place], [address] , [facility] - [facility] [place] 10:20:46 Problem Notes None recorded. Procedures Surgical History Date Name Laterality Status Provider Name and Address Organization Details Recorded Time 11/11/2023 FFL_RE completed GISELA PRUETT MD [address] [facility],[place] [address], [place], [address], [facility] - [facility] 11/11/2023 10:26:08 Imaging Results None recorded. Procedure Notes None recorded. Medical Equipment None Reported. Allergies Allergen ID Allergen Name Allergen Category Reaction Reaction Severity Criticality Documentation Date Start Date Code Code System Note Provider Name and Address Organization Details Recorded Time 25281 Product containin g penicilli n (product) medicatio n hives Not available Not available 09/16/2023 70619 8001 SNOMED React ion: skin rashe s, hives ;; Not Available [facility] 00:48:35 04843 codeine medicatio n nausea Not available Not available 09/16/2023 2670 RxNorm React ion: Stoma ch cramp s; Not Available [facility] 00:48:40 11253 acetamino phen / oxycodone medicatio n nausea Not available Not available 09/16/2023 89621 3 RxNorm React ion: nause a;; Not Available [facility] 4 00:48:40 Medications Name Sig Start [...] 20 mg tablet active Medicatio n ID: [id number] Br and Name: atorvasta tin Send Method: [...] release 24 hr active Medicatio n ID: [id number] Br and Name: isosorbid e mononitra te [...] 300 mg capsule active Medicatio n ID: [id number] and Name: gabapenti n Send Method: E-Prescri [...] 25 mg tablet active Medicatio n ID: [id number] Br and Name: metoprolo l tartrate Send [...] Updated DateTime 11/11/2023 160.02 cm 21.8 kg/m2 00251.86 g Delores Mejía [place] - [facility] 11/11/2023 09:58:27 Social History None recorded. Functional Status None recorded. Mental Status None recorded. Family History Nothing Reported. Medical History No medical history recorded. Gynecological HistoryNo gynecological history recorded. Obstetrics History GPAL:G 0 P 0 0 0 0 Past Encounters Encounter ID Performer Location Encounter Start Date Encounter Closed Date Diagnosis/Indication Diagnosis SNOMED-CT Code Diagnosis ICD10 Code Diagnosis IMO Codes Diagnosis Note [id number] GISELA PRUETT MD [facility] [address] [address] 11/11/2023 09:08:06 11/11/2023 10:28:26 Dysphagia 89272066 R13.10 see below Gastroesop hageal reflux disease without esophagitis 472049863 K21.9 continue omeprazole per prescribin g provider Chronic hoarseness [address] 105 R49.0 Her right vocal cord is sluggish. No glottic gap. Likely recovering after ACDF. MBS showed a safe swallow. I suspect her neuromuscu lar disorder may contribute to her dysphagia as well and I recommend she keep f/u with her neurologis ts at [place]. No ENT interventi on needed. No tumors on exam. I gave reassuranc e. Health Concerns Section Related Observation LastModified by Organization Detai ls LastModified Time None Recorded Concern Status LastModified by Organization Details LastModified Time None Recorded Advance Directives Directive None Recorded Payers Insurance Date Sequence Insurance Name Policy Number Policy Viveros Covered Member ID Viveros Member ID Guarantor Name 11/19/2024 2 [employer] - [place] (PPO) [id number] Kristopher Bertin [id number] Ying Denton 11/19/2024 1 [employer] (MEDICARE REPLACEMENT/ ADVANTAGE - PPO) [id number] Ying A Bertin [id number] Ying Denton 11/19/2024 2 CIG[employer] - [facility] BENEFIT PLAN MANAGEMENT (PPO) Ying Denton [id number] Ying Denton Notes Date Note Type Note Provider Name and Address Organization Details Recorded Time 11/11/2023 text/html ROS as noted in the HPI She reports difficulty swallowing. She chokes on liquids. She also has trouble with solids. This has been the case since 2020. She had an MBS 06/2023 which showed some mild dysphagia but no aspiration and she did not need therapy or diet modification. This MBS was done after receiving swallow therapy which she felt improved her swallowing. She is being worked up at [place] for a neurologic disorder. She has muscle cramping and she can't use her left arm well. On omeprazole for GERD. Hx of ACDF. She has had some voice trouble since with difficulty projecting. GISELA PRUETT MD [address] [place] [address], [place], [address], [place] - [facility] 11/11/2023 10:28:19 OBGyn Episode No OBEpisode recorded.
--- OUTSIDE RECORDS SUMMARY | 2025-03-02 20:20 | XMS_ITS | Encounter Summary ---
Author Organization [facility] Address [address] [place] [phone] Phone Care Team Providers Care Drink Waiter Name Role Phone Gustavo Suarez DO Primary Care Provider [phone] Ellie Kan PA Unavailable [phone] Reason for Visit * Reason Onset Date Comments Rx to different pharmacy 03/08/2020 Encounter Details Date Type Department Care Team (Late st Contact Info) Description 03/08/2020 Telephone [facility] [address] [place] [address] Gustavo Noe MD [address] [place] [address] Rx to different pharmacy Social History Tobacco [...] stating rx for patch should go to [facility] [facility] - documented in this encounter Plan of Treatment Not on file documented as of this encounter Visit Diagnoses Diagnosis Menopausal syndrome- Primary Symptomatic menopausal or female climacteric states documented in this encounter Care Teams Drink Waiter Relationship Specialty Start Date End Date Gustavo Suarez DO [address] [place] [phone] PCP - General Internal Medicine 02/16/18 Ellie Kan PA [address] [place] [phone] Physician Bus Transportation Manager 07/14/24 documented as of this encounter Additional Source Comments The information contained in this document represents components of the legal health record. It is not the complete legal health record.[facility]
--- OUTSIDE RECORDS SUMMARY | 2025-03-02 20:20 | XMS_ITS | Encounter Summary ---
Author Organization [facility] Address [address] [place] [place] [phone] Care Team Providers Care Roll Up Machine Operator Name Role Phone No, Pcp (Do Not Change Name) Primary Care Provid er Unavailable Encounter Details Date Type Department Care Team (Late st Contact Info) Description 06/09/2024 Scanned Document INTERFACE DEFAULT [address] [place] [address] System, Provider Not In Social History [...] EST Office Visit [facility] [address] [place] [address] Richard Lewis MD [address] [place] [address] documented as of this encounter Visit Diagnoses Not on filedocumented in this encounter Additional Health Concerns Assessment Noted Time PHQ-9 Depression Total Score: 0 01/27/20 8:26 AM EDT documented as of this encounter Care Teams Roll Up Machine Operator Relationship Specialty Start Date End Date No, Pcp (Do Not Change Name) PCP - General 07/19/24 documented as of this encounter
--- OUTSIDE RECORDS SUMMARY | 2025-03-02 20:20 | XMS_ITS | Encounter Summary ---
Author Organization [facility] and [facility] Address [address] [place] [phone] Care Team Providers Care Rental Car Deliverer Name Role Phone No, Pcp (Do Not Change Name) Primary Care Provid er Unavailable Encounter Details Date Type Department Care Team (Late st Contact Info) Description 09/30/2024 Scanned Document INTERFACE DEFAULT [address] [place] [phone] System, Provider Not In Social History Tobacco [...] EST Office Visit [facility] [address] [place] [address] Richard Lewis MD [address] [place] [phone] documented as of this encounter Visit Diagnoses Not on filedocumented in this encounter Additional Health Concerns Assessment Noted Time PHQ-9 Depression Total Score: 0 01/27/20 24 8:26 AM EDT documented as of this encounter Care Teams Rental Car Deliverer Relationship Specialty Start Date End Date No, Pcp (Do Not Change Name) PCP - General 07/19/24 documented as of this encounter
--- OUTSIDE RECORDS SUMMARY | 2025-03-02 20:20 | XMS_ITS | Encounter Summary ---
Author Organization [facility] Address [address] [place] [phone] Care Team Providers Care Molasses Feed Mixer Name Role Phone No, Pcp (Do Not Change Name) Primary Care Provid er Unavailable Encounter Details Date Type Department Care Team (Late st Contact Info) Description 01/19/2025 Scanned Document INTERFACE DEFAULT [address] [place] [phone] System, Provider Not In Social History Tobacco [...] EST Office Visit [facility] [address] [place] [address] Richard Lewis MD [address] [place] [phone] documented as of this encounter Visit Diagnoses Not on filedocumented in this encounter Additional Health Concerns Assessment Noted Time PHQ-9 Depression Total Score: 0 01/27/20 24 8:26 AM EDT documented as of this encounter Care Teams Molasses Feed Mixer Relationship Specialty Start Date End Date No, Pcp (Do Not Change Name) PCP - General 07/19/24 documented as of this encounter
--- OUTSIDE RECORDS SUMMARY | 2025-03-02 20:20 | XMS_ITS | Clinical Summary ---
Author Organization [facility] Address [address] [place] [address] Care Team Providers Care Machine Records Units Supervisor Name Role Phone Gustavo Suarez Primary [...] patient's age to complete this topic Insurance [facility] [employer] MCR * Guarantor: DANIELLE DENTON Account Type Relation to Patient Date of Phone Billing Address Personal/Family 1960 Care Teams Machine Records Units Supervisor Relationship Specialty Start Date End Date Gustavo Suarez [address] [place] [address] [place] [id number] PCP - General Internal Medicine 11/13/22
--- OUTSIDE RECORDS SUMMARY | 2025-03-02 20:20 | XMS_ITS | Continuity of Care Document ---
Author Organization [facility] [address] [place] [address] Phone [phone] Care Team Providers Care Station Supervisor Name Role Phone Gustavo Suarez M.D. Care Team Information Recei yadira [phone] Clarence Leiva MD Care Team Information R eceiver [phone] Problems Active Problems Provider Date Multinodular goiter [...] Apply 1 Patch Once A Week Unknown [id number] Tablets Take 1 Tablet By Mouth Twice Daily as Needed For Muscle Spasm Krystina Mendez, MACHINE REPAIRER Guwkzrenx4tn Tablets Take half hs Unknow n Vitamin D (Ergocalciferol)1.25mg (33481 Ut) Capsules Take 1 Capsule By Mouth every other week Unknown [id number] Capsules DR Take 1 Capsule By Mouth Every Day 30 Minutes Before Breakfast Gustavo Suarez M.D. Gckqnfyskk409ij Tablets 300mg am, 300mg 2pm, 1200mg 8pm Unknown Dakvutn6bm Tablets Take 1 Tablet By Mouth Twice Daily Linda Astudillo MD Lamotrigine MW567ae Tablets ER 24HR Take 2 Tablets By Mouth Every Day Unknown Methylphenidate [id number] Tablets Take 1 Tablet By Mouth Three Times Daily prn Unknown Valacyclovir GFK230pb Tablets Unknown Tizanidine HCL2mg Tablets Unknown Dicyclomine IJI08zb Capsules Take 1 Capsule By Mouth Four [...] TSH With Reflex To FT4 12/12/2022 [facility] TSH With Reflex To FT4 0.33 uIU/mL Low (0.4-4. 2) Anti Thyroid Peroxidase AB 12/12/2022 [facility] Anti Thyroid Peroxidase AB <3.0 IU/mL (<5.6) 1 25Oh Vitamin D 12/12/2022 [facility] 25Oh Vitamin D 50.0 NG/ML (20-50) Free T4 12/12/2022 [facility] Free T4 0.90 ng/dL (0.70-1 .80) 1 Antibody measurement represents one parameter in a multicriteria diagnostic process. Correlate results with clinical presentation. This test was performed on the [employer] immunoassay system. Medical Devices Description No Information [...]
--- OUTSIDE RECORDS SUMMARY | 2025-03-02 20:20 | XMS_ITS | Encounter Summary ---
Author Organization [facility] Address [address] [place] [phone] Care Team Providers Care Tassel Making Machine Operator Name Role Phone No, Pcp (Do Not Change Name) Primary Care Provid er Unavailable Encounter Details Date Type Department Care Team (Late st Contact Info) Description 10/07/2024 Scanned Document INTERFACE DEFAULT [address] [place] [address] [phone] System, Provider Not In Social History Tobacco [...] Office Visit [facility] [address] [place] [address] Richard Lewis MD [address] [place] [phone] documented as of this encounter Visit Diagnoses Not on filedocumented in this encounter Additional Health Concerns Assessment Noted Time PHQ-9 Depression Total Score: 0 01/27/20 24 8:26 AM EDT documented as of this encounter Care Teams Tassel Making Machine Operator Relationship Specialty Start Date End Date No, Pcp (Do Not Change Name) PCP - General 07/19/24 documented as of this encounter
--- OUTSIDE RECORDS SUMMARY | 2025-03-02 20:20 | XMS_ITS | Encounter Summary ---
Author Organization [facility] Address [address] [place] [phone] Care Team Providers Care Drafter Plumbing Name Role Phone No, Pcp (Do Not Change Name) Primary Care Provid er Unavailable Encounter Details Date Type Department Care Team (Late st Contact Info) Description 03/08/2024 Scanned Document INTERFACE DEFAULT [address] [place] [address] System, Provider Not In Social History [...] [facility] [address] [place] [address] Richard Lewis MD [address] [place] [address] documented as of this encounter Procedures Procedure [...] documented as of this encounter Care Teams Drafter Plumbing Relationship Specialty Start Date End Date No, Pcp (Do Not Change Name) PCP - General 07/19/24 documented as of this encounter
--- OUTSIDE RECORDS SUMMARY | 2025-03-02 20:20 | XMS_ITS | Encounter Summary ---
Author Organization [facility] Address [address] [place] [phone] Care Team Providers Care Head Waiter Name Role Phone No, Pcp (Do Not Change Name) Primary Care Provid er Unavailable Encounter Details Date Type Department Care Team (Late st Contact Info) Description 10/20/2024 Scanned Document INTERFACE DEFAULT [address] [place] [phone] System, Provider Not In Social History Tobacco [...] EST Office Visit [facility] [address] [place] [address] Richard Lewis MD [address] [place] [phone] documented as of this encounter Visit Diagnoses Not on filedocumented in this encounter Additional Health Concerns Assessment Noted Time PHQ-9 Depression Total Score: 0 01/27/20 24 8:26 AM EDT documented as of this encounter Care Teams Head Waiter Relationship Specialty Start Date End Date No, Pcp (Do Not Change Name) PCP - General 07/19/24 documented as of this encounter
--- OUTSIDE RECORDS SUMMARY | 2025-03-02 20:20 | XMS_ITS | Encounter Summary ---
Author Organization [facility] Address [address] [place] [phone] Care Team Providers Care Patternmaker Metal Name Role Phone No, Pcp (Do Not Change Name) Primary Care Provid er Unavailable Reason for Referral * Physical Medicine (Routine) - New Request Specialty Diagnoses / Procedures Referred By Maria Isabel shahid Referred To Contact Physical Therapy Diagnoses Weakness Muscle spasm Richard Lewis MD [address] [place] [address] Phone: tel: fax: Referral ID Status Reason Start Date Expiration Date Visits Requested Visits Authorized [id number] New Request Specialty Services Required 07/26/2024 07/26/2025 1 1 Reason for Visit * Reason Onset Date Comments Triage 07/26/2024 Increased muscle spasms Encounter Details Date Type Department Care Team (Late st Contact Info) Description 07/26/2024 Telephone [facility] [address] [address] Richard Lewis MD [address] [place] [address] Triage (Increased muscle spasms ) [...] EST Office Visit [facility] [address] [place] [address] Richard Lewis MD [address] [place] [address] Scheduled Referrals Name Type Priority [...] documented as of this encounter Care Teams Patternmaker Metal Relationship Specialty Start Date End Date No, Pcp (Do Not Change Name) PCP - General 07/19/24 documented as of this encounter
--- OUTSIDE RECORDS SUMMARY | 2025-03-02 20:20 | XMS_ITS | Clinical Summary ---
Author Organization [facility] [employer] [facility] Address [address] [place] [address] Phone Care Team Providers Care Title Clerk Automobile Name Role Phone Clarence Leiva MD Primary Care Provider [phone] Allergies Active Allergy Reactions Criticality Noted Date [...] CAD (coronary artery disease) 06/09/2024 Non-ST elevation [place] (NSTEMI) ([facility] V24, [facility]/ CC V28) 06/09/2024 Dizziness 04/14/2024 Assessment & [...] this time she is working with a machine group leader and will continue to work on dietary adjustments, alternative therapies may be readdressed at her next visit. I have reviewed with the patient the importance of a heart healthy lifestyle which includes eating a low-fat low-salt diet, getting regular exercise, maintaining a healthy weight, not smoking, and following up with routine medical care. PAF (paroxysmal atrial fibri llation) ([facility] V24, [facility] V28) 03/10/2024 Assessment & Plan [...] DX:Hypertension A-fib (CMS/HCC V24, CMS/HCC V28) DX:A-fib ([facility]) Cardiac microvascular disease DX :Cardiac [...] Last Done Comments Breast Cancer Screening 1960 Colorectal Cancer Screening: Colonoscopy 1960 DTaP,Tdap,and Td Vaccines (1 - Tdap) 01/09/1979 Cervical Cancer Screening: P ap Smear 01/09/1981 Pneumococcal Vaccine: 50+ Years (1 of 1 - PCV) 01/09/2010 Zoster Vaccines (2 of 2) 02/02/2018 12/08/2017 Cholesterol Screening (Lipid Panel) 04/12/2022 Hepatitis C Screening 04/12/2022 Medicare Annual [...] [facility] Comment:Calculation based on the [...] LAB CHEMISTRY METHOD 04/05/2024 3:28 PM EST [facility] Alkaline Phosphatase 65 42 - 121 unit/L LAB CHEMISTRY METHOD 04/05/2024 3:28 PM EST [facility] Total Protein 6.6 6.0 - 8.0 g/dL LAB CHEMISTRY METHOD 04/05/2024 3:28 PM EST [facility] Albumin 3.7 3.2 - 5.0 g/dL LAB CHEMISTRY METHOD 04/05/2024 3:28 PM [facility] Total Bilirubin 0.6 0.0 - 1.4 mg/dL LAB CHEMISTRY METHOD 04/05/2024 3:28 PM EST [facility] Blood Venous blood specimen / Unknown Venipuncture / Unknown 04/05/2024 2:46 PM EST 04/05/2024 2:59 PM EST Enrique Moyer MD LAB BLOOD ORDERABLES Final Result [facility] [address] [place] [address], from Last 3 Months or Most Recently Relevant to Health Maintenance Insurance [employer] MEDICARE ADVANTAGE [facility] Advance Directives Documents on File Type Date Recorded Patient Manager State Expl anation Health Care Decision (hx) 02/15/2022 AD SPAULDING DIRECTIVE Health Care Decision (hx) 02/15/2022 AD SPAULDING DIRECTIVE Health Care Decision (hx) 02/15/2022 AD SPAULDING DIRECTIVE Care Teams Title Clerk Automobile Relationship Specialty Start Date End Date Clarence Leiva MD [facility] [address] [place] [address] [address] [place] [address] PCP - General Internal Medicine 08/02/24
== END 2025-03-02 20:13 | disposition home or self-care (01) ==
PROVIDERS: Student in an Organized Health Care Education/Training Program; Emergency Provider Emergency Medicine; PCP Physician Assistant Medical
DX: K59.00 Constipation, unspecified (principal); R10.32 Left lower quadrant pain; I10 Essential (primary) hypertension; I48.91 Unspecified atrial fibrillation; Z79.01 Long term (current) use of anticoagulants; Z79.899 Other long term (current) drug therapy
CPT/HCPCS: 36415; 74177; 80053; 81003; 83690; 83735; 85025; 99284; J1171; J1885; Q9967

== ENCOUNTER → 2025-03-02 16:10 | Outpatient (BNV) | payer OTHER, MEDICAID, SELFPAY | PROVIDERS: Emergency Provider Emergency Medicine; PCP Physician Assistant Medical; Visit Provider Radiology Diagnostic Radiology | DX: R10.32 Left lower quadrant pain (principal) | CPT/HCPCS: 74177 ==

== ENCOUNTER 2025-03-14 12:16 | Emergency (ER) | payer MEDICARE, OTHER, MEDICAID, SELFPAY ==
[2025-03-14] VITALS (7 sets, daily range): BP systolic 120–158; BP diastolic 63–79; PULSE 69–83; RESP 16; TEMP 36.2–36.5; O2SAT 95–98; BMI 22.1
--- NOTE | ~2025-03-14 | XR_ITS ---
EXAMINATION: XR CHEST CLINICAL INFORMATION: syncope COMPARISON: May 16, 2023 TECHNIQUE: 2 views of the chest were obtained. FINDINGS: Lungs are clear. Heart size is within normal limits. Mediastinal structures are unremarkable. Multiple calcific densities project in the region of the right shoulder joint. ACDF has been performed in the cervical spine. XR/XR chest 2V IMPRESSION: No acute disease. 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 Electronically signed by: Arik Birmingham MD 03/14/2025 01:20 PM TYLER
--- NOTE | ~2025-03-14 | CT_ITS ---
EXAMINATION: CT HEAD WITHOUT CONTRAST CLINICAL INFORMATION: Syncope COMPARISON: CT 01/07/2025 TECHNIQUE: Contiguous axial imaging was performed from the skull base to vertex without intravenous administration of contrast. This CT examination was performed using dose optimization techniques as appropriate, variously including the following: *Automated exposure control *Adjustment of mA and/or kV according to patient size (this includes techniques or standardized protocols for targeted exams where dose is matched to indication/reason for exam; i.e. extremities or head) *Use of iterative reconstruction technique Findings: There is no evidence of acute intracranial hemorrhage or edematous large vessel territorial infarction. No abnormal mass effect or midline shift is seen. Morejon to white matter differentiation is well preserved. No abnormal extra-axial fluid collections are identified. The ventricles are normal in size. No abnormal attenuation in the brain parenchyma. Bilateral globes are within normal limits. No acute calvarial fracture.. Right mastoid effusion, unchanged. Paranasal sinuses are well-aerated. CT/CT head/brain wo IV con IMPRESSION: No CT evidence of acute intracranial hemorrhage or edematous territorial infarction.. Right mastoid air cells effusion, unchanged. Electronically signed by: Darryl Choudhary MD 03/14/2025 03:06 PM TYLER
--- NOTE | 2025-03-14 12:21 | ED_ITS ---
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 Patient states she woke up this morning and noticed pain in the right shoulder, that radiates down to the fingertips. Patient states she used a nasal benzodiazepine spray for pain relief as this is an area where she frequently experiences pain due to stiff man syndrome however this medication did not work. Patient states while she was in the bathroom urinating, she stood up and bent down to pull her pants up when she experienced a syncopal episode. Patient reports she was able to push a button on her watch alerted her who was upstairs at the time and came down to help her. Patient is unsure if she hit her head or not, but states she hit the right side of her shoulder on the edge of the bathtub which is making her pain worse. Denies chest pain, shortness of breath, difficulty breathing, abdominal pain, nausea, vomiting, headache, visual changes MD complaint: Syncopal episode, exacerbation of stiff man syndrome Related Data Home Medications ?Medication ?Instructions ?Recorded ?Confirmed estradiol 0.075 mg/24 hr weekly 1 patch transdermal WE @0900 08/14/22 01/20/25 transdermal patch gabapentin 600 mg tablet 1,200 mg PO DAILY@1900 08/1401/20/25 lamotrigine 200 mg tablet,extended 400 mg PO DAILY 01/20/25 release 24 hr apixaban 5 mg tablet (Eliquis) 5 mg PO BID 06/23/24 dicyclomine 10 mg capsule 10 mg PO QID 06/23/24 miscellaneous medical supply ea miscellaneous 08/19/24 01/20/25 immune globu G 5 gram/50 mL(10 ml IV 11/19/24 12/23/24 %)-gly-IgA ave 46 mcg/mL injection soln (Gamunex-C) diazepam 10 mg/spray (0.1 mL) mg intranasal muscle spa sm 12/23/24 01/20/25 nasal spray (Valtoco) diazepam 5 mg tablet 10 mg PO BID PRN 12/23/24 diazepam 5 mg tablet (Valium) 5 mg PO BID PRN 12/23/24 01/20/25 immune glob G 20 gram/200 ml IV 12/23/24 12/23/24 mL(10%)-gly-IgA ave 46 mcg/mL injection soln (Gamunex-C) Previous Rx's ?Medication ?Instructions ?Recorded rollator #1 ea 12/23/22 epinephrine 0.3 mg/0.3 mL 0.3 mg (0.3 mL) IM Q10M PRN 06/23/24 injection, auto-injector anaphylaxis #2 ea Portable Mobility Bed rail #2 ea 08/20/24 baclofen 20 mg tablet 20 mg PO Q4H muscle spasm 90 days 09/24/24 #540 tabs omeprazole 20 mg capsule,delayed 20 mg PO BID 90 days #180 caps 09/29/24 release ergocalciferol (vitamin D2) 1,250 1,250 mcg PO Q2W 90 days #7 caps 01/20/25 mcg (50,000 unit) capsule ranolazine 500 mg tablet,extended 500 mg PO BID #180 t abs 02/18/25 release,12 hr rosuvastatin 20 mg tablet 20 mg PO BEDTIME #90 tabs polyethylene glycol 3350 17 17 g PO DAILY #119 grams 1 gram/dose oral powder (ClearLax) morphine 15 mg immediate release 15 mg PO Q12H PRN [place] n #6 tabs 03/14/25 tablet morphine 15 mg immediate release 15 mg PO Q12H PRN sev ere pain 03/15/25 tablet (scale score 7-10) #6 tabs Allergies Allergy/AdvReac Type Severity Reaction Status Date / Time Beta-Blockers Allergy Mild blood Verified 03/14/25 12:24 (Beta-Adrenergic Bloc pressure drop house dust Allergy Mild Anaphylaxis Verified 03/14/25 12:24 penicillin G (Penicillin G) Allergy Mild RASH Verified 03/14/25 12:24 penicillin V Allergy Unknown Abdominal Verified 03/14/25 12:24 Pain adhesive Allergy Blister Verified 03/14/25 12:24 mold Allergy Headache Verified 03/14/25 12:24 Ddpsyom-CCB-QwK Reductase Allergy Weakness Verified 03/14/25 12:24 Inhibitor codeine (Codeine) AdvReac Mild SEVERE Verified 03/14/25 12:24 ABDOMINAL PAIN Review of Systems 2 Review of Systems: Yes all other systems are reviewed and are negative [facility] Past Medical History Attestation statement: The following information was validated with the patient. Source: old records reviewed, obtained from family ( at bedside) and nursing notes reviewed Medical History Hypertension Urinary urgency Urinary, incontinence, stress female Muscle weakness Blurry vision Intestinal cramps Bladder retention Carpal tunnel syndrome Right hand pain Overweight (BMI 25.0-29.9) Intermittent palpitations Neurogenic bladder History of mammogram (~2022) Ataxia Coronary artery spasm Coronary artery anomaly Hair loss Hemorrhoids Diverticulosis Tubular adenoma Eczema Fibrocystic breast disease Herpes simplex Hypersomnia Witnessed apneic spells Arthritis Difficulty swallowing Weakness On anticoagulant therapy Lumbar spondylosis Spinal stenosis in cervical region Restless legs syndrome (RLS) Anemia Fatigue Cervical spondylosis Anxiety Bipolar disease, manic Occasional tremors Obstructive sleep apnea Insomnia GERD (gastroesophageal reflux disease) Cardiac microvascular disease TIA (transient ischemic attack) Atrial fibrillation Cardiomyopathy Surgical History H/O cervical discectomy History of partial hysterectomy History of tonsillectomy Hx of hand surgery History of radiofrequency ablation procedure for cardiac arrhythmia History of esophagogastroduodenoscopy (EGD) H/O colonoscopy (~10/05/20) H/O radiofrequency ablation (RFA) of nerve of lumbar spine Hx of cervical spine surgery Hx of shoulder surgery H/O: knee surgery Hx of cholecystectomy History of carpal tunnel release Hx of appendectomy Family History Family History Father Dementia Cancer Mother Cancer COPD (chronic obstructive pulmonary disease) Multiple sclerosis Daughter Myasthenia Social History Social History Household Members: Significant Other Housing: House Are you a primary director career services to a significant other at home: No Do you presently have visiting nurse 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, PALEONTOLOGICAL HELPER) Alcohol intake: current Alcohol intake frequency: does not drink Patient Tobacco Use Status: Former Tobacco user Smoked in Last 30 Days: No Use of substances other than those prescribed or required for medical reasons: No Advance Directives: Yes Advance Directives on File: Yes Advance Directives Date on File: 04/10/23 Do you have a plan to hurt others: No Plan service: No Current occupational status: disabled Cognitive needs: Yes (cane ) Hearing needs: No Vision needs: Yes (rx glasses) Physical Exam ED Vital Signs: Vital Signs - 24 hr 03/14/25 17:30 03/14/25 19:14 03/14/25 19:16 Temperature Pulse Rate 69 76 Respiratory Rate Blood Pressure 158/74 H 156/78 H Pulse Oximetry 95 Oxygen Delivery Method Room Air 03/14/25 19:17 03/14/25 19:19 03/14/25 19:58 Temperature 97.7 F 97.7 F Pulse Rate 73 73 73 Respiratory Rate 16 Blood Pressure 152/79 H 152/79 H 152/79 H Pulse Oximetry 97 97 Oxygen Delivery Method Room Air Room Air BMI result Body Mass Index 22.1 GENERAL APPEARANCE: ?AxOx4, generally well-appearing, no acute distress. HEENT: ?NC, AT. MMM. EOMI, clear conjunctiva, oropharynx clear. NECK: ?Supple without lymphadenopathy.? No stiffness or restricted ROM. HEART:? Normal rate and regular rhythm, normal S1/S2, no m/r/g LUNGS:? CTAB, moving air well. No crackles or wheezes are heard. ABDOMEN: ?Soft, nontender, nondistended with good bowel sounds heard. BACK: No CVAT, no obvious deformity. EXTREMITIES: ?Without cyanosis, clubbing or edema. TTP of entire R arm from anterior and posterior aspects of the shoulder down to the hand. The extremity is well perfused, with 2+ radial pulses, and appropriate capillary refill time, the limb is vascularly intact. There is no warmth, erythema or edema to the limb, SILT NEUROLOGICAL: ?Grossly nonfocal. Alert and oriented, moving all 4 extremities. Skin: ?Warm and dry without any rash. Course Course Course Narrative: Rapid medical examination performed in triage by Bertha Hogan PA-C: Patient is a 65 year old assigned female at presenting to the emergency department with concerns of vision changes and stiff man syndrome flare and syncope. Patient states that started with a stiff man syndrome episode, lost her vision, it came back, then a time later she had a syncopal episode. Detailed physical exam and review of systems are deferred to the triage clinician. EKG, labs, imaging, swabs ordered. Patient placed back in the waiting room pending room availability and results. Reevaluation(s) Reevaluation #1: Pharmacy called, stating that the morphine prescription was written as tablet, not specified in writing if it was immediate release or extended release. I recent a new prescription, advised pharmacy to avoid out please use prescription. Medications Administered Discontinued Medications Generic Name Dose Route Start Last Admin Trade Name Ana Paula PRN Reason Stop Dose Admin Diazepam 5 mg 03/14/25 16:50 03/14/25 17:01 Diazepam 5 Mg Tablet PO 03/14/25 16:51 5 mg ONCE ONE Administration Acetaminophen 1,000 mg in 100 mls @ 400 mls/hr 03/14/25 16:40 03/14/25 17:12 Ofirmev IV 03/14/25 16:54 Infused ONCE ONE Infusion Morphine Sulfate 4 mg 03/14/25 18:06 03/14/25 18:13 Morphine Sulfate 4 Mg/Ml Cartridge IVPUSH 03/14/25 18:07 4 mg ONCE ONE Administration Protocol Medical Decision Making Medical Decision Making MDM Narrative: 65-year-old female medical history of HTN, urinary urgency, coronary artery spasm, arthritis, bipolar, insomnia, GERD, TIA, AFib on Eliquis, cardiomyopathy, 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 Patient is unsure of head strike. While talking with the patient, she stated she woke up with pain down the arm and was alluding to her pain originating from stiff man syndrome. As we are talking, patient states that she called accompany called land line that she has access to through her insurance company who will put her in contact with the nurse practitioner if she has any health concerns. After her fall, she called that line and was encouraged to come to the ED for evaluation for shoulder injury. VS on initial observation-BP 120/63, pulse rate of 83, respiratory rate of 16, afebrile with oral temp of 97.1?, O2 saturation 98% on room air. On physical exam patient is tender to palpation over the right anterior shoulder, there was no ecchymosis, bony step-offs or anatomical abnormalities palpated or observed in this area, radial pulses are 2+, SILT, appropriate capillary refill, the limb is well perfused and vascularly intact. 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 Orthostatic vital signs negative for orthostatic hypotension. I did a bedside echo with my attending Dr. Patel which showed appropriate contractility, and structure of the heart. On chart review, patient has seen [facility] and was seen in the office approximately 4 months ago in November of 2024. The credit department manager not have any evidence of patient being in AFib, and is most likely on Eliquis due to a diagnosis of TIA. But encouraged the patient to stay anticoagulated. Electrocardiogram done in June of 2024 at [facility] without significant findings. There was no clear evidence of coronary artery spasm or EKG changes and no further workup was warranted and patient was cleared by their office. Patient presents with pain of right shoulder and arm, originally was speaking like the arm pain was from stiff man exacerbation however patient presents due to shoulder pain after syncope and fall. Syncope is most likely vasovagal in nature after she bent over to pull up her pants and underwear after using the bathroom. Patient was medicated with 1 g IV Tylenol, 5 mg IV Valium, 4 mg IV morphine with mild relief of her shoulder pain. X-ray negative for fracture or dislocation however shows calcifications within the right shoulder joint, this may be exacerbating her pain after injury. Patient is vascularly intact, with negative head CT, chest x-ray, orthostatic vital signs, and a non concerning bedside echo done with my attending Dr. Patel. Leukopenia of 3.1 found on labs today however patient has had same values in the past. Patient reports that she has a history of leukopenia however none of her providers have never mentioned this to her before. I presume the leukopenia may be due to IVIG as patient has frequent infusions for stiff man syndrome. I counseled patient to follow up with her primary care doctor on these findings, and discuss her leukopenia to ensure the decreased white blood cell count is due to IVIG therapy. I counseled patient to manage her pain at home with Tylenol, and will send 3 days of morphine for pain management. I will send referral to Orthopedics so she can follow up on her shoulder pain as she may need additional imaging to evaluate for soft tissue injury. Patient feels well enough to go home at this time, and is in agreement with the plan. Differential Diagnosis Differential Diagnoses: The differential diagnosis associated with the presentation includes ICH Skull fracture ACS Dysrhythmia Exacerbation of stiff man syndrome Shoulder fracture Shoulder dislocation Orthostatic hypotension Vasovagal syncope Admission/Observation Consideration of admission/observation: Escalation of care including admission/observation considered Lab Data MDM Lab Attestation statement: I reviewed the patient's lab results. 03/14/25 12:48 03/14/25 12:48 Labs: Lab Results 03/14/25 03/14/25 Range/Units 12:48 18:33 WBC 3.1 L (4.8-10.8) X10*3/uL RBC 4.07 L (4.20-5.50) X10*6/uL Hgb 12.7 (12.0-16.0) g/dl Hct 36.7 L (37.0-47.0) % MCV 90.2 (80.0-98.0) fL MCH 31.2 (27.0-33.0) pg MCHC 34.6 (31.0-35.0) g/dl RDW 13.6 (11.0-16.0) % Plt Count 267 (160-400) X10*3/uL MPV 9.4 (9.4-12.3) fL Immature Gran % (Auto) 0.0 (0.0-0.4) % Neut % (Auto) 53.4 (45-73) % Lymph % (Auto) 34.0 (20-40) % Vermilion % (Auto) 10.3 (2-11) % Eos % (Auto) 1.3 (0-4) % Baso % (Auto) 1.0 (0-2) % Lymph # (Auto) 1.1 L (1.2-4.9) X10*3/uL [place]ilion # (Auto) 0.3 (0.1-1.2) X10*3/uL Eos # (Auto) 0.0 (0.0-0.4) X10*3/uL Baso # (Auto) 0.0 (0.0-0.2) X10*3/uL Abs Immat Gran (auto) 0.00 (0.00-0.03) X10*3/uL Absolute Neuts (auto) 1.7 L (2.0-8.3) x10*3/uL Absolute Nucleated RBC 0.000 (0.0-0.012) X10*3/uL Nucleated RBC % (auto) 0.0 (0.0-0.2) /100WBC Sodium 138 (135-145) mmol/L Potassium 4.1 (3.3-5.1) mmol/L Chloride 106 (96-108) mmol/L Carbon Dioxide 27 (22-29) mmol/L Anion Gap 9 L (12-20) BUN 13 (9-16) mg/dL Creatinine 0.73 (0.5-1.4) mg/dL Estim Creat Clear Calc 66.3 Estimated GFR > 60 Random Glucose 89 (60-115) mg/dL Calcium 8.9 (8.4-10.2) mg/dL Magnesium 1.8 (1.6-2.6) mg/dL Total Bilirubin 0.9 (0.0-1.0) mg/dL AST 29 (5-31) U/L ALT 8 (0-31) U/L Alkaline Phosphatase 66 (39-117) U/L Troponin I High Sens 4.4 3.6 (<3.5-17.0) ng/L NT-Pro-B Natriuret Pep 72.1 (<300) pg/mL Total Protein 9.4 H (6.5-8.0) g/dL Albumin 3.7 (3.5-5.0) g/dL Influenza Type A (PCR) NEGATIVE (Negative) Influenza Type B (PCR) NEGATIVE (Negative) RSV RNA Qual (PCR) NEGATIVE (Negative) SARS-CoV-2 RNA (RT-PCR) NEGATIVE (Negative) Independent Interpretation I performed an independent interpretation of an: EKG Interpretation: I personally interpreted the EKG which reveals sinus rhythm with occasional atrial paced complexes, no ST-elevation/depression, T-wave abnormality or prolonged QT Vent. Rate : 76 BPM Atrial Rate : 76 BPM P-R Int : 184 ms QRS Dur : 80 ms QT Int : 370 ms P-R-T Axes : 53 44 63 degrees QTcB Int : 416 ms Sinus rhythm with occasional atrial-paced complexes Abnormal ECG When compared with ECG of 07-Jan-2025 18:43, Electronic atrial pacemaker has replaced Sinus rhythm Radiology Impression Discussion of test interpretation with radiology: I have reviewed the radiologist's reading. Radiologist Impression: CT head/brain Discharge Plan Discharge Clinical Impression: Syncope, vasovagal, Pain in right shoulder Patient Disposition: Home, Self-Care Additional Instructions: You were evaluated in the ED due to right shoulder pain, and an episode of passing out. Your blood work was negative for any abnormalities with the exception of a low white blood cell count of 3.1 however this is most likely due to your IVIG infusions, nonetheless please follow up with your primary care doctor on these findings. Your EKG did not reveal any emergent cardiac findings, your troponin which is a protein that the heart gives off while under stress or damage were both within normal limits. Your chest x-ray was negative for shoulder fracture, dislocation or any cardiopulmonary processes. To manage pain at home, please take 500 mg of Tylenol every 6 hours. You are being prescribed a 3 day course of morphine that you can use for breakthrough pain/severe pain when Tylenol and Motrin not sufficient. Additionally, you can apply ice to the affected area. I have placed referral to Orthopedics for you as you may need additional imaging for evaluation of soft tissue injury of the shoulder. Please return to the emergency department if you experience worsening pain of your right shoulder, stiffness or tightness of the limb, temperature changes, redness or swelling of the limb, chest pain, shortness of breath, fevers over 100.4?, or any new/worsening/concerning symptoms. Prescriptions: New morphine 15 mg tablet 15 mg PO Q12H PRN (Reason: pain) Qty: 6 0RF Rx Instructions: Partial Fill upon patient request. morphine 15 mg tablet 15 mg PO Q12H PRN (Reason: severe pain (scale score 7-10)) Qty: 6 0RF Rx Instructions: Partial Fill upon patient request. No Action (DME) rollator See Rx Instructions .Route .MEDSUPPLY Qty: 1 0RF Rx Instructions: As directed miscellaneous medical supply [facility] miscellaneous Rx Instructions: Bed Assist Rail (DME) Portable Mobility Bed rail See Rx Instructions .Route .MEDSUPPLY Qty: 2 0RF Rx Instructions: As directed omeprazole 20 mg capsule,delayed release(DR/EC) 20 mg PO BID 90 Days Qty: 180 1RF diazepam 5 mg tablet 10 mg PO BID PRN ranolazine 500 mg tablet extended release 12 hr 500 mg PO BID Qty: 180 3RF rosuvastatin 20 mg tablet 20 mg PO BEDTIME Qty: 90 3RF polyethylene glycol 3350 [ClearLax] 17 gram/dose powder 17 g PO DAILY Qty: 119 0RF estradiol 0.075 mg/24 hr patch weekly 1 patch transdermal WE@0900 gabapentin 600 mg tablet 1,200 mg PO DAILY@1900 lamotrigine 200 mg tablet extended release 24hr 400 mg PO DAILY baclofen 20 mg tablet 20 mg PO Q4H 90 Days Qty: 540 3RF Gamunex-C 20 gram/200 mL (10 %) solution IV Valtoco 10 mg/spray (0.1 mL) spray,non-aerosol intranasal diazepam [Valium] 5 mg tablet 5 mg PO BID PRN ergocalciferol (vitamin D2) 1,250 mcg (50,000 unit) capsule 1,250 mcg PO Q2W 90 Days Qty: 7 3RF dicyclomine 10 mg capsule 10 mg PO QID epinephrine 0.3 mg/0.3 mL auto-injector 0.3 mg IM Q10M PRN (Reason: anaphylaxis) Qty: 2 1RF Rx Instructions: for 2 doses Eliquis 5 mg tablet 5 mg PO BID Gamunex-C 5 gram/50 mL (10 %) solution IV Referrals: [facility] Orth[facility]geons [Provider Group] Interventions: ED Discharge Assessment Last Done: 03/14/25 19:58 Discharge Date/Time: 03/14/25 20:03 Print Language: Persian
--- NOTE | 2025-03-14 12:23 | ECG_ITS ---
Test Reason : SYNCOPE Blood Pressure : */* mmHG Vent. Rate : 76 BPM Atrial Rate : 76 BPM P-R Int : 184 ms QRS Dur : 80 ms QT Int : 370 ms P-R-T Axes : 53 44 63 degrees QTcB Int : 416 ms Sinus rhythm with Premature ventricular complexes Borderline ECG When compared with ECG of 07-Jan-2025 18:43, No significant changes seen Referred By: Bertha Hogan Electronically Signed By: EMMANUEL JUNE MD
[2025-03-14 12:54] LABS: MANUAL DIFF FLAG NO
[2025-03-14 12:56] LABS: Hematocrit 36.7 % (37.0-47.0); Hemoglobin 12.7 g/dl (12.0-16.0); Imm Gran Abs Auto 0.00 X10*3/uL (0.00-0.03); Imm Gran Pct Auto 0.0 % (0.0-0.4); Lymphocytes Absolute Auto 1.1 X10*3/uL (1.2-4.9); Mean Corpuscular HGB Conc 34.6 g/dl (31.0-35.0); Mean Corpuscular Hemoglobin 31.2 pg (27.0-33.0); Mean Corpuscular Volume 90.2 fL (80.0-98.0); NRBC Abs Auto 0.000 X10*3/uL (0.0-0.012); NRBC Pct Auto 0.0 /100WBC (0.0-0.2); Platelet Count 267 X10*3/uL (160-400); Red Blood Count 4.07 X10*6/uL (4.20-5.50); White Blood Count 3.1 X10*3/uL (4.8-10.8)
[2025-03-14 13:13] LABS: Alanine Aminotransferase 8 U/L (0-31); Albumin Level 3.7 g/dL (3.5-5.0); Alkaline Phosphatase 66 U/L (39-117); Anion Gap 9 (12-20); Aspartate Amino Transferase 29 U/L (5-31); Blood Urea Nitrogen 13 mg/dL (9-16); Calcium 8.9 mg/dL (8.4-10.2); Carbon Dioxide 27 mmol/L (22-29); Chloride 106 mmol/L (96-108); Creatinine Clr Calc Pharmacy 66.3; Estimated Glomerular Filt Rate > 60; Magnesium 1.8 mg/dL (1.6-2.6); Potassium 4.1 mmol/L (3.3-5.1); Sodium 138 mmol/L (135-145); Total Protein 9.4 g/dL (6.5-8.0)
[2025-03-14 13:25] LABS: NT Pro B Type Natriuretic Pept 72.1 pg/mL (<300); Troponin-I High Sensitivity 4.4 ng/L (<3.5-17.0)
[2025-03-14 13:33] LABS: Resp Syncy Virus RNA Qual PCR NEGATIVE (Negative); SARS COV2 PCR INHOUSE NEGATIVE (Negative)
--- OUTSIDE RECORDS SUMMARY | 2025-03-14 17:04 | XMS_ITS | Encounter Summary ---
Author Organization [facility] Address [address] [place] [phone] Care Team Providers Care Fur Cutter Name Role Phone No, Pcp (Do Not Change Name) Primary Care Provid er Unavailable Encounter Details Date Type Department Care Team (Late st Contact Info) Description 03/26/2024 Scanned Document INTERFACE DEFAULT [address] [place] [phone] System, Provider Not In Social History [...] Office Visit [facility] [address] [place] [phone] Richard Lewis MD [address] [place] [address] documented as of this encounter Visit Diagnoses Not on filedocumented in this encounter Additional Health Concerns Assessment Noted Time PHQ-9 Depression Total Score: 0 01/27/20 8:26 AM EDT documented as of this encounter Care Teams Fur Cutter Relationship Specialty Start Date End Date No, Pcp (Do Not Change Name) PCP - General 07/19/24 documented as of this encounter
--- OUTSIDE RECORDS SUMMARY | 2025-03-14 17:04 | XMS_ITS | Encounter Summary ---
Author Organization [facility] Address [address] [place] [phone] Care Team Providers Care Marine Biologist Name Role Phone No, Pcp (Do Not Change Name) Primary Care Provid er Unavailable Encounter Details Date Type Department Care Team (Late st Contact Info) Description 10/20/2024 Scanned Document INTERFACE DEFAULT [address] [place] [phone] System, Provider Not In Social History Tobacco [...] Office Visit [facility] [address] [place] [phone] Richard Lewis MD [address] [place] [phone] documented as of this encounter Visit Diagnoses Not on filedocumented in this encounter Additional Health Concerns Assessment Noted Time PHQ-9 Depression Total Score: 0 01/27/20 24 8:26 AM EDT documented as of this encounter Care Teams Marine Biologist Relationship Specialty Start Date End Date No, Pcp (Do Not Change Name) PCP - General 07/19/24 documented as of this encounter
--- OUTSIDE RECORDS SUMMARY | 2025-03-14 17:04 | XMS_ITS | Encounter Summary ---
Author Organization [facility] Address [address] [place] [phone] Care Team Providers Care Welding Machine Operator Helper Gas Name Role Phone No, Pcp (Do Not Change Name) Primary Care Provid er Unavailable Encounter Details Date Type Department Care Team (Late st Contact Info) Description 03/08/2024 Scanned Document INTERFACE DEFAULT [address] [place] [phone] System, Provider Not In Social History [...] EST Office Visit [facility] [address] [place] [phone] Richard Lewis MD [address] [place] [address] documented as of this encounter Procedures Procedure [...] documented as of this encounter Care Teams Welding Machine Operator Helper Gas Relationship Specialty Start Date End Date No, Pcp (Do Not Change Name) PCP - General 07/19/24 documented as of this encounter
--- OUTSIDE RECORDS SUMMARY | 2025-03-14 17:04 | XMS_ITS | Clinical Summary ---
Author Organization [facility] Address [address] [place] [address] Phone Care Team Providers Care Resort Desk Clerk Name Role Phone Gustavo Suarez DO Primary Care Provider Ellie Kan PA Unavailable [phone] Allergies Active Allergy Reactions Criticality Noted Date [...] that she has discussed this with her chemical dependency counselor who thought that it was reasonable to continue with the estradiol patch. She is on an anticoagulant which would decrease the risk of stroke associated with the VTE. I will see if I can contact her chemical dependency counselor for some further guidance and also do [...] formulations. However, I do believe that her chemical dependency counselor should weigh in on this as well. Therefore, I will send a copy of today's note. Her current dose of estradiol is 0 0.075 mg per 24 hours changed weekly. I cannot find in the chart where her previous dose was but according to the notes it was decreased to this current dose. If her chemical dependency counselor is in agreement, she will call when [...] [facility]ill [facility] [address] [place] [address] Valeria Villalobos CMA Medication Refill (Refill [...] patient's age to complete this topic IPV VACCINES Aged Out No longer eligi ble [...] AETNA PPO MEDICARE REPLACEMENT CIGNA TPA Elie PEREIRA PANKAJ WALKER [id number] MEDICARE PART A & B AETNA O MEDICARE REPLACEMENT CIGNA TPA MEDICARE PART A & B AETNA [place]PO [place] [id number] MEDICARE PART A & B [facility] [place] [address] MEDICARE PART A & B [facility] MEDICARE REPLACEMENT CIGNA TPA MEDICARE PART A & B Member Subscriber Plan / Payer (Ef fective 1993-) Name:Ying Denton Member ID:[id number] Relation to Subscriber:Self Name:Bertin Ying A Subscriber ID:[id number] Payer ID:[id number] Group ID:Not on file Type:Medicare Address: [facility] [employer] [facility] [address] [place] [phone] AETNA PPO MEDICARE REPLACEMENT MEDICARE PART A & B AETNA O MEDICARE [place]PLAC[place] [place] [address] Elie PEREIRA PANKAJ WALKER [id number] MEDICARE PART A & B AETNA PPO MEDICARE [place]PLAC[place] [address] [place] [address] TPA MEDICARE PART A & B AETNA O MEDICARE REPLACEMENT CIGNA TPA Care Teams Resort Desk Clerk Relationship Specialty Start Date End Date Gustavo Suarez DO [address] [place] [address] PCP - General Internal Medicine 02/16/18 Ellie Kan PA [address] [place] [address] Physician Telecommunications Field Technician 07/14/24 Additional Source Comments The information contained in this document represents components of the legal health record. It is not the complete legal health record.[facility]
--- OUTSIDE RECORDS SUMMARY | 2025-03-14 17:04 | XMS_ITS | Encounter Summary ---
Author Organization [facility] Address [address] [place] [address] Care Team Providers Care Tobacco Prizer Name Role Phone No, Pcp (Do Not Change Name) Primary Care Provid er Unavailable Encounter Details Date Type Department Care Team (Late st Contact Info) Description 09/30/2024 Scanned Document INTERFACE DEFAULT [address] [place] [phone] System, Provider Not In Social History Tobacco [...] EST Office Visit [facility] [address] [place] [address] Richard Lewis MD [address] [place] [phone] documented as of this encounter Visit Diagnoses Not on filedocumented in this encounter Additional Health Concerns Assessment Noted Time PHQ-9 Depression Total Score: 0 01/27/20 24 8:26 AM EDT documented as of this encounter Care Teams Tobacco Prizer Relationship Specialty Start Date End Date No, Pcp (Do Not Change Name) PCP - General 07/19/24 documented as of this encounter
--- OUTSIDE RECORDS SUMMARY | 2025-03-14 17:04 | XMS_ITS | Clinical Summary ---
Author Organization [facility] Address [address] [place] [address] Care Team Providers Care Kettle Tender Name Role Phone Gustavo Suarez Primary Care Provider [phone] Allergies Active Allergy Reactions Criticality Noted Date [...] age to complete this topic Insurance [facility] AETNA MCR * Guarantor: DANIELLE DENTON Account Type Relation to Patient Date of Phone Billing Address Personal/Family 1960 Care Teams Kettle Tender Relationship Specialty Start Date End Date Gustavo Suarez [address] [place] [address] [place] [address] PCP - General Internal Medicine 11/13/22
--- OUTSIDE RECORDS SUMMARY | 2025-03-14 17:04 | XMS_ITS | Encounter Summary ---
Author Organization [facility] Address [address] [place] [phone] Care Team Providers Care Test Desk Operator Name Role Phone No, Pcp (Do Not Change Name) Primary Care Provid er Unavailable Reason for Visit * Reason Onset Date Comments Triage 09/29/2024 ? Medication den ial Encounter Details Date Type Department Care Team (Late st Contact Info) Description 09/29/2024 Telephone [facility] [address] [place] [address] Richard Lewis MD [address] [place] [address] Triage (? Medication denial ) [...] EST Office Visit [facility] [address] [place] [address] [phone] Richard Lewis MD [address] [place] [address] documented as of this encounter Visit Diagnoses Not on filedocumented in this encounter Additional Health Concerns Assessment Noted Time PHQ-9 Depression Total Score: 0 01/27/20 24 8:26 AM EDT documented as of this encounter Care Teams Test Desk Operator Relationship Specialty Start Date End Date No, Pcp (Do Not Change Name) PCP - General 07/19/24 documented as of this encounter
--- OUTSIDE RECORDS SUMMARY | 2025-03-14 17:04 | XMS_ITS | Encounter Summary ---
Author Organization [facility] Address [address] [place] [address] Care Team Providers Care Dialysis Patient Care Technician Name Role Phone No, Pcp (Do Not Change Name) Primary Care Provid er Unavailable Encounter Details Date Type Department Care Team (Late st Contact Info) Description 01/20/2025 Scanned Document INTERFACE DEFAULT [address] [place] [phone] System, Provider Not In Social History Tobacco [...] EST Office Visit [facility] [address] [place] [address] Richard Lewis MD [address] [place] [phone] documented as of this encounter Visit Diagnoses Not on filedocumented in this encounter Additional Health Concerns Assessment Noted Time PHQ-9 Depression Total Score: 0 01/27/20 24 8:26 AM EDT documented as of this encounter Care Teams Dialysis Patient Care Technician Relationship Specialty Start Date End Date No, Pcp (Do Not Change Name) PCP - General 07/19/24 documented as of this encounter
--- OUTSIDE RECORDS SUMMARY | 2025-03-14 17:04 | XMS_ITS | Clinical Summary ---
Author Organization [facility] [employer] [facility] Address [address] [place] [address] Phone Care Team Providers Care Canvas Goods Fabricator Name Role Phone Clarence Leiva MD Primary Care Provider [phone] Allergies Active Allergy Reactions Criticality Noted Date [...] CAD (coronary artery disease) 06/09/2024 Non-ST elevation CT (NSTEMI) ([facility] V24, [facility] V28) 06/09/2024 Dizziness 04/14/2024 Assessment [...] this time she is working with a cotton stripper and will continue to work on dietary adjustments, alternative therapies may be readdressed at her next visit. I have reviewed with the patient the importance of a heart healthy lifestyle which includes eating a low-fat low-salt diet, getting regular exercise, maintaining a healthy weight, not smoking, and following up with routine medical care. PAF (paroxysmal atrial fibri llation) ([facility] V24, [facility] V28) 03/10/2024 Assessment & Plan [...] A-fib (CMS/HCC V24, CMS/HCC V28) DX:A-fib ([facility]) Cardiac microvascular disease DX :Cardiac microvascular disease Hyperlipidemia DX:Hyperlipidemi a Family History Medical History Relation Name Comments COPD Father Dementia Father Lung cancer Father Aortic stenosis Mother Bone cancer Mother Breast cancer Mother Lung cancer Mother Multiple sclerosis Mother Relation Name Status Comments Father Mother Social History Tobacco Use Types Packs/Day Years Used Date Smoking Tobacco: Former Cigarettes 0 Q uit: 06/05/1995 Smokeless Tobacco: Never Tobacco [...] mmol/L LAB CHEMISTRY METHOD 04/05/2024 3:28 PM [facility] Potassium 3.8 3.5 - 5.5 mmol/L LAB CHEMISTRY METHOD 04/05/2024 3:28 PM [facility] Chloride 111(H) 96 - 110 mmol/L LAB CHEMISTRY METHOD 04/05/2024 3:28 PM [facility] CO2 26 21 - 32 mmol/L LAB CHEMISTRY METHOD 04/05/2024 3:28 PM [facility] Anion Gap 8 3 - 11 LAB CHEMISTRY METHOD 04/05/2024 3:28 PM [facility] Glucose 84 70 - 100 mg/dL LAB CHEMISTRY METHOD 04/05/2024 3:28 PM [facility] BUN 9 5 - 25 mg/dL LAB CHEMISTRY METHOD 04/05/2024 3:28 PM [facility] Creatinine 0.63 0.50 - 1.10 mg/dL LAB CHEMISTRY METHOD 04/05/2024 3:28 PM [facility] eGFR 99 >=60 mL/min/1. 73m2 LAB CHEMISTRY METHOD 04/05/2024 3:28 PM [facility] Comment:Calculation based on the Chronic Kidney Disease Epidemiology Collaboration (CKD-EPI) equation refit without adjustment for race. BUN/Creatinine Ratio 14.3 LAB CHEMISTRY METHOD 04/05/2024 3:28 PM [facility] Calcium 9.5 8.5 - 10.5 mg/dL LAB CHEMISTRY METHOD 04/05/2024 3:28 PM [facility] AST (SGOT) 24 10 - 42 unit/L LAB CHEMISTRY METHOD 04/05/2024 3:28 PM [facility] ALT (SGPT) 19 10 - 60 unit/L LAB CHEMISTRY METHOD 04/05/2024 3:28 PM EST [facility] Alkaline Phosphatase 65 42 - 121 unit/L LAB CHEMISTRY METHOD 04/05/2024 3:28 PM EST [facility] Total Protein 6.6 6.0 - 8.0 g/dL LAB CHEMISTRY METHOD 04/05/2024 3:28 PM EST [facility] Albumin 3.7 3.2 - 5.0 g/dL LAB CHEMISTRY METHOD 04/05/2024 3:28 PM [facility] Total Bilirubin 0.6 0.0 - 1.4 mg/dL LAB CHEMISTRY METHOD 04/05/2024 3:28 PM [facility] Blood Venous blood specimen / Unknown Venipuncture / Unknown 04/05/2024 2:46 PM EST 04/05/2024 2:59 PM EST Enrique Moyer MD LAB BLOOD ORDERABLES Final Result [facility] [address] [place] [address], from Last 3 Months or Most Recently Relevant to Health Maintenance Insurance AETNA MEDICARE ADVANTAGE [facility] Advance Directives Documents on File Type Date Recorded Patient Counterperson Expl anation Health Care Decision (hx) 02/15/2022 AD SPAULDING DIRECTIVE Health Care Decision (hx) 02/15/2022 AD SPAULDING DIRECTIVE Health Care Decision (hx) 02/15/2022 AD SPAULDING DIRECTIVE Care Teams Canvas Goods Fabricator Relationship Specialty Start Date End Date Clarence Leiva MD [facility] [address] [place] [address] [address] [place] [address] PCP - General Internal Medicine 08/02/24
--- OUTSIDE RECORDS SUMMARY | 2025-03-14 17:04 | XMS_ITS | Encounter Summary ---
Author Organization [facility] Address [address] [place] [phone] Care Team Providers Care Manager Oracle Database Name Role Phone No, Pcp (Do Not Change Name) Primary Care Provid er Unavailable Encounter Details Date Type Department Care Team (Late st Contact Info) Description 06/09/2024 Scanned Document INTERFACE DEFAULT [address] [place] [address] System, Provider Not In Social History [...] EST Office Visit [facility] [address] [place] [address] Richard Lewis MD [address] [place] [address] documented as of this encounter Visit Diagnoses Not on filedocumented in this encounter Additional Health Concerns Assessment Noted Time PHQ-9 Depression Total Score: 0 01/27/20 8:26 AM EDT documented as of this encounter Care Teams Manager Oracle Database Relationship Specialty Start Date End Date No, Pcp (Do Not Change Name) PCP - General 07/19/24 documented as of this encounter
--- OUTSIDE RECORDS SUMMARY | 2025-03-14 17:04 | XMS_ITS | Encounter Summary ---
Author Organization [facility] Address [address] [place] [phone] Care Team Providers Care Manager Water Name Role Phone No, Pcp (Do Not Change Name) Primary Care Provid er Unavailable Reason for Visit * Reason Onset Date Comments Triage 10/10/2023 Encounter Details Date Type Department Care Team (Late st Contact Info) Description 10/10/2023 Telephone [facility] [address] [place] [address] Richard Lewis MD [address] [place] [phone] Triage Social History Tobacco Use Types Packs/Day [...] being worked up for MS at the [facility] and was scheduled to start on Ocrevus in 10/2021. She had hip replacement surgery in Feb 2022 at [facility] and four days s/p surgery, she experienced full body paresis from her neck to her feet. 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 She needed to go to rehab after this event as she required a wheelchair. She occasionally experiences blurry vision but follows regularly with her plan consultant. * Telephone Encounter - Katarina Handy - 10/10/2023 11:04 AM EDT Copied from [facility] #[id number]. Topic: General Message - [facility] >> Oct 10, 2023 11:00 AM Katarina Shukla wrote: [facility] MESSAGE Time of call: [...] urgently? no Best telephone number for callback: [phone] Best time to return call: any Permission to leave message: yes Katarina Handy [facility] Social Insurance Administrator documented in this encounter Plan of Treatment Upcoming Encounters Date Type Department Care Team (Late st Contact Info) Description 05/31/2025 3:30 PM EST Office Visit [facility] [address] [address] Richard Lewis MD [address] [place] [address] documented as of this encounter Visit Diagnoses Not on filedocumented in this encounter Additional Health Concerns Assessment Noted Time PHQ-9 Depression Total Score: 0 09/24/19 24 9:25 AM EDT documented as of this encounter Care Teams Manager Water Relationship Specialty Start Date End Date No, Pcp (Do Not Change Name) PCP - General 07/19/24 documented as of this encounter
--- OUTSIDE RECORDS SUMMARY | 2025-03-14 17:04 | XMS_ITS | Encounter Summary ---
Author Organization [facility] Address [address] [place] [address] Phone Care Team Providers Care Pipe Supervisor Name Role Phone Gustavo Suarez DO Primary Care Provider Ellie Kan PA Unavailable [phone] Reason for Visit * Reason Onset Date Comments Rx to different pharmacy 03/08/2020 Encounter Details Date Type Department Care Team (Late st Contact Info) Description 03/08/2020 Telephone [facility] [address] [place] [address] Gustavo Noe MD [address] [place] [address] Rx to different pharmacy Social History Tobacco [...] stating rx for patch [facility] go to [facility] - documented in this encounter Plan of Treatment Not on file documented as of this encounter Visit Diagnoses Diagnosis Menopausal syndrome- Primary Symptomatic menopausal or female climacteric states documented in this encounter Care Teams Pipe Supervisor Relationship Specialty Start Date End Date Gustavo Suarez DO [address] [place] [address] PCP - General Internal Medicine 02/16/18 Ellie Kan PA [address] [place] [address] Physician Director Of Archives 07/14/24 documented as of this encounter Additional Source Comments The information contained in this document represents components of the legal health record. It is not the complete legal health record.[facility]
--- OUTSIDE RECORDS SUMMARY | 2025-03-14 17:04 | XMS_ITS | Encounter Summary ---
Author Organization [facility] Address [address] [place] [phone] Care Team Providers Care Pharmacy Picking Tech Name Role Phone No, Pcp (Do Not Change Name) Primary Care Provid er Unavailable Encounter Details Date Type Department Care Team (Late st Contact Info) Description 01/19/2025 Scanned Document INTERFACE DEFAULT [address] [place] [phone] System, Provider Not In Social History Tobacco [...] EST Office Visit [facility] [address] [place] [address] Richard Lewis MD [address] [place] [phone] documented as of this encounter Visit Diagnoses Not on filedocumented in this encounter Additional Health Concerns Assessment Noted Time PHQ-9 Depression Total Score: 0 01/27/20 24 8:26 AM EDT documented as of this encounter Care Teams Pharmacy Picking Tech Relationship Specialty Start Date End Date No, Pcp (Do Not Change Name) PCP - General 07/19/24 documented as of this encounter
--- OUTSIDE RECORDS SUMMARY | 2025-03-14 17:04 | XMS_ITS | Encounter Summary ---
Author Organization [facility] Address [address] [place] [address] Care Team Providers Care Splitter Hand Name Role Phone No, Pcp (Do Not Change Name) Primary Care Provid er Unavailable Reason for Referral * Physical Medicine (Routine) - New Request Specialty Diagnoses / Procedures Referred By Maria Isabel shahid Referred To Contact Physical Therapy Diagnoses Weakness Muscle spasm Richard Lewis MD [address] [place] [address] Phone: tel: fax: Referral ID Status Reason Start Date Expiration Date Visits Requested Visits Authorized [id number] New Request Specialty Services Required 07/26/2024 07/26/2025 1 1 Reason for Visit * Reason Onset Date Comments Triage 07/26/2024 Increased muscle spasms Encounter Details Date Type Department Care Team (Late st Contact Info) Description 07/26/2024 Telephone [facility] [address] [address] Richard Lewis MD [address] [place] [address] Triage (Increased muscle spasms ) [...] EST Office Visit [facility] [address] [place] [address] Richard Lewis MD [address] [place] [address] Scheduled Referrals Name Type Priority [...] documented as of this encounter Care Teams Splitter Hand Relationship Specialty Start Date End Date No, Pcp (Do Not Change Name) PCP - General 07/19/24 documented as of this encounter
--- OUTSIDE RECORDS SUMMARY | 2025-03-14 17:04 | XMS_ITS | Encounter Summary ---
Author Organization [facility] Address [address] [place] [address] Care Team Providers Care Seat Coverer Name Role Phone No, Pcp (Do Not Change Name) Primary Care Provid er Unavailable Encounter Details Date Type Department Care Team (Late st Contact Info) Description 09/24/2024 Documentation [facility] [address] [place] [phone] Richard Lewis MD [address] [place] [address] Social History Tobacco Use Types [...] Office Visit [facility] [address] [facility] 2nd Floor [place], [place] [phone] Richard Lewis MD [address] [place] [phone] documented as of this encounter Visit Diagnoses Not on filedocumented in this encounter Additional Health Concerns Assessment Noted Time PHQ-9 Depression Total Score: 0 01/27/20 8:26 AM EDT documented as of this encounter Care Teams Seat Coverer Relationship Specialty Start Date End Date No, Pcp (Do Not Change Name) PCP - General 07/19/24 documented as of this encounter
--- OUTSIDE RECORDS SUMMARY | 2025-03-14 17:04 | XMS_ITS | Encounter Summary ---
Author Organization [facility] Address [address] [place] [address] Care Team Providers Care Risk Prevention Engineer Name Role Phone No, Pcp (Do Not Change Name) Primary Care Provid er Unavailable Encounter Details Date Type Department Care Team (Late st Contact Info) Description 10/07/2024 Scanned Document INTERFACE DEFAULT [address] [place] [phone] System, Provider Not In Social History Tobacco [...] EST Office Visit [facility] [address] [place] [address] Richard Lewis MD [address] [place] [address] documented as of this encounter Visit Diagnoses Not on filedocumented in this encounter Additional Health Concerns Assessment Noted Time PHQ-9 Depression Total Score: 0 01/27/20 24 8:26 AM EDT documented as of this encounter Care Teams Risk Prevention Engineer Relationship Specialty Start Date End Date No, Pcp (Do Not Change Name) PCP - General 07/19/24 documented as of this encounter
--- OUTSIDE RECORDS SUMMARY | 2025-03-14 17:04 | XMS_ITS | Continuity of Care Document ---
Author Organization [facility] [address] [facility] [address] [place] [address] Phone [phone] Care Team Providers Care Hat Finishing Materials Preparer Name Role Phone Gustavo Suarez M.D. Care Team Information Recei yadira [phone] Clarence Leiva MD Care Team Information R eceiver [phone] Problems Active Problems Provider Date Multinodular goiter Jono Holm M.D. Onset: 12/12/2022 History of transient ischaemic attack Jono onrelas M.D. Onset: 12/12/2022 Bipolar disorder Jono Holm [...] Apply 1 Patch Once A Week Unknown [id number] Tablets Take 1 Tablet By Mouth Twice Daily as Needed For Muscle Spasm Krystina Mendez, APARTMENT HOUSE MANAGER [id number] Tablets Take half hs Unknow n Vitamin D (Ergocalciferol)1.25mg (86743 Ut) Capsules Take 1 Capsule By Mouth every other week Unknown [id number] Capsules DR Take 1 Capsule By Mouth Every Day 30 Minutes Before Breakfast Gustavo Suarez M.D. [id number] Tablets 300mg am, 300mg 2pm, 1200mg 8pm Unknown [id number] Tablets Take 1 Tablet By Mouth Twice Daily Linda Astudillo MD Lamotrigine [id number] Tablets ER 24HR Take 2 Tablets By Mouth Every Day Unknown Methylphenidate BVH38ig Tablets Take 1 Tablet By Mouth Three Times Daily prn Unknown Valacyclovir FRO110zo Tablets Unknown Tizanidine HCL2mg Tablets Unknown Dicyclomine LSD44yx Capsules Take 1 Capsule By Mouth Four [...] 77 TSH With Reflex To FT4 12/12/2022 [facility] TSH With Reflex To FT4 0.33 uIU/mL Low (0.4-4. 2) Anti Thyroid Peroxidase AB 12/12/2022 [facility] Anti Thyroid Peroxidase AB <3.0 IU/mL (<5.6) 1 25Oh Vitamin D 12/12/2022 [facility] 25Oh Vitamin D 50.0 NG/ML (20-50) Free T4 12/12/2022 [facility] Free T4 0.90 ng/dL (0.70-1 .80) 1 Antibody measurement represents one parameter in a multicriteria diagnostic process. Correlate results with clinical presentation. This test was performed on the [employer] immunoassay system. Medical Devices Description No Information [...]
--- OUTSIDE RECORDS SUMMARY | 2025-03-14 17:04 | XMS_ITS | Encounter Summary ---
Author Organization [facility] [employer] and [facility] Address [address] [place] [phone] Care Team Providers Care Siphon Operator Name Role Phone No, Pcp (Do Not Change Name) Primary Care Provid er Unavailable Encounter Details Date Type Department Care Team (Late st Contact Info) Description 08/08/2023 Scanned Document [facility] [address] [place] [phone] Marquita Gallegos MD [address] [place] [phone] Social History Tobacco Use Types Packs/Day [...] Office Visit [facility] [address] [place] [address] [phone] Richard Lewis MD [address] [place] [phone] documented as of this encounter Visit Diagnoses Not on filedocumented in this encounter Care Teams Siphon Operator Relationship Specialty Start Date End Date No, Pcp (Do Not Change Name) PCP - General 07/19/24 documented as of this encounter
--- OUTSIDE RECORDS SUMMARY | 2025-03-14 17:04 | XMS_ITS | Encounter Summary ---
Author Organization [facility] and [facility] Address [address] [place] [phone] Care Team Providers Care Hog Sticker Name Role Phone No, Pcp (Do Not Change Name) Primary Care Provid er Unavailable Encounter Details Date Type Department Care Team (Late st Contact Info) Description 10/10/2023 Transcribed Orders CARE [facility]ENTER SCHEDULING [address] [place] [address] Referral, Self Social History Tobacco [...] Description 05/31/2025 3:30 PM EST Office Visit [facility] Center & Neuro-Immunology [address] [address] Richard Lewis MD [address] [place] [address] documented as of this encounter Visit Diagnoses Not on filedocumented in this encounter Additional Health Concerns Assessment Noted Time PHQ-9 Depression Total Score: 0 09/24/19 24 9:25 AM EDT documented as of this encounter Care Teams Hog Sticker Relationship Specialty Start Date End Date No, Pcp (Do Not Change Name) PCP - General 07/19/24 documented as of this encounter
--- OUTSIDE RECORDS SUMMARY | 2025-03-14 17:04 | XMS_ITS | Clinical Summary ---
Author Organization [address] Address [address] [place] [address] Care Team Providers Care Bottom Liquor Attendant Name Role Phone No, Pcp (Do [...] 05/2021 Penicillins Hives,Other (See Comments),Rash High 07/09/2017 Egrrhxm-Tjl-Xwp Reductase Inhibitors Other (See Comments) Medium 07/19/2024 [...] Encounters Date Type Department Care Team Description 03/08/2025 Telephone [facility] [address] [place] [phone] Richard Lewis MD Other 03/02/2025 Telephone [facility] [address] [place] [phone] Richard Lewis MD Triage 01/28/2025 Telephone [facility] [address] [place] [phone] Richard Lewis MD Other 01/21/2025 Refill [facility] [address] [place] [phone] Richard Lewis MD Medication Refill 01/20/2025 Scanned Document INTERFACE DEFAULT [address] [place] [address] System, Provider Not In 01/19/2025 Scanned Document INTERFACE DEFAULT [address] [place] [address] System, Provider Not In 01/17/2025 Telephone [facility] Center & Neuro-Immunology [address] [place] [phone] Richard Lewis MD Other 01/14/2025 Telephone [facility] & Neuro-Immunology [address] [place] [phone] Richard Lewis MD Other 01/07/2025 Telephone [facility] Center & Neuro-Immunology [address] [place] [phone] Richard Lewis MD Triage 12/30/2024 Refill [facility] Center & Neuro[facility]Immunology [address] [place] [phone] Richard Lewis MD Medication Problem 12/29/2024 Telephone [facility] & Neuro-Immunology [address] [place] [phone] Richard Lewis MD Medication Problem 12/21/2024 1:00 PM EDT Office Visit [facility] [address] [place] [phone] Richard Lewis MD Stiff person spectrum disorder (Primary Dx); Muscle cramping; White matter abnormality on MRI of brain from Last 3 Months Social History Tobacco [...] Office Visit [facility] [address] [place] [address] [phone] Richard Lewis MD [address] [place] [phone] Health Maintenance Due Date Last Done [...] vaccine 12/03/2024 03/12/2016 Covid-19 vaccine series ( season) 2025 09/14/2021, 12/13/2020 Osteoporosis screening (bone density) 01/09/2025 RSV Immunization (1 - 1-dose 75+ series) 01/09/2035 Cervical cancer screening Discontinued Meningococcal B Vaccine Aged Out No l onger eligible based on patient's age to complete this topic Meningococcal Vaccine Aged Out No kamla holly eligible based on patient's age to complete this topic Insurance [facility] MGD [facility] MEDICARE [facility]IC[facility] MEDICARE Care Teams Bottom Liquor Attendant Relationship Specialty Start Date End Date No, Pcp (Do Not Change Name) PCP - General 07/19/24
--- OUTSIDE RECORDS SUMMARY | 2025-03-14 17:04 | XMS_ITS | Data Portability ---
Author Organization [place] [facility], Allergy Address [address] [address] Assessment No assessment recorded. Plan of Treatment [...] of nose, middle ear and accessory sinuses 893844093 Active 2019 Benign neoplasm of middle ear, nasal cavity and accessory sinuses; Note: Date Diagnosed : 04/07/2020 1:44 PM (D14.0) Not Available [facility] hospital 02:19:03 Ataxia 65207074 Active 2019 Ataxia, unspecifi ed; Note: Date Diagnosed : 04/07/2020 1:44 PM (R27.0) Not Available Critical access hospital 02:18:41 Dysphagia 22990234 Active 2023 GISELA PRUETT MD 100 [facility],[place] [address], [place], [address] , [facility] - [facility] 10:19:25 Gastroeso phageal reflux disease without esophagit is 799519386 Active 2023 GISELA PRUETT MD 100 [facility] [address], [facility] [place], [address] , [facility] - [facility] 10:19:44 Chronic hoarsenes s 09482100336 05 Active 2023 GISELA PRUETT MD 100 [facility] [address], [facility] [place], [address] , [facility] - [facility] [place] 10:20:46 Problem Notes None recorded. Procedures Surgical History Date Name Laterality Status Provider Name and Address Organization Details Recorded Time 11/11/2023 FFL_RE completed GISELA PRUETT MD 100 [facility],[place] [address], [place], [address], [facility] - [facility] 11/11/2023 10:26:08 Imaging Results None recorded. Procedure Notes None recorded. Medical Equipment None Reported. Allergies Allergen ID Allergen Name Allergen Category Reaction Reaction Severity Criticality Documentation Date Start Date Code Code System Note Provider Name and Address Organization Details Recorded Time 47588 Product containin g penicilli n (product) medicatio n hives Not available Not available 09/16/2023 75486 8001 SNOMED React ion: skin rashe s, hives ;; Not Available Critical access hospital 00:48:35 55885 codeine medicatio n nausea Not available Not available 09/16/2023 2670 RxNorm React ion: Stoma ch cramp s; Not Available Critical access hospital 00:48:40 46466 acetamino phen / oxycodone medicatio n nausea Not available Not available 09/16/2023 07191 3 RxNorm React ion: nause a;; Not Available Critical access hospital 4 00:48:40 Medications Name Sig Start Date [...] 20 mg tablet active Medicatio n ID: [id number] Br and Name: atorvasta tin Send Method: [...] release 24 hr active Medicatio n ID: [id number] Br and Name: isosorbid e mononitra te [...] 300 mg capsule active Medicatio n ID: [id number] and Name: gabapenti n Send Method: E-Prescri [...] 25 mg tablet active Medicatio n ID: [id number] Br and Name: metoprolo l tartrate Send [...] Updated DateTime 11/11/2023 160.02 cm 21.8 kg/m2 42049.86 g Delores Mejía [place] - [facility] 11/11/2023 09:58:27 Social History None recorded. [...] Note [id number] GISELA PRUETT MD [facility] [address] [address] 11/11/2023 09:08:06 11/11/2023 10:28:26 Dysphagia 14439839 R13.10 see below Gastroesop hageal reflux disease without esophagitis 203931233 K21.9 continue omeprazole per prescribin g provider Chronic hoarseness 45706 [address] 105 R49.0 Her right vocal cord is sluggish. No glottic gap. Likely recovering after ACDF. MBS showed a safe swallow. I suspect her neuromuscu lar disorder may contribute to her dysphagia as well and I recommend she keep f/u with her neurologis ts at [facility]. No ENT interventi on needed. No tumors [...] Name 11/19/2024 2 [employer] - BYWATER (PPO) [id number] Kristopher Bertin [id number] Ying Denton 11/19/2024 1 [employer] (MEDICARE REPLACEMENT/ ADVANTAGE - PPO) [id number] Ying A Bertin [id number] Ying Denton 11/19/2024 2 [employer] - FORMERLY [facility] BENEFIT PLAN MANAGEMENT (PPO) Ying Denton [id number] Ying Denton Notes Date Note Type Note [...] swallowing. She is being worked up at [facility] for a neurologic disorder. She has muscle cramping and she can't use her left arm well. On omeprazole for GERD. Hx of ACDF. She has had some voice trouble since with difficulty projecting. GISELA PRUETT MD [address] [place] [address], [place], [address], [place] [facility] 11/11/2023 10:28:19 OBGyn Episode No OBEpisode recorded.
[2025-03-14 18:57] LABS: Troponin-I High Sensitivity 3.6 ng/L (<3.5-17.0)
== END 2025-03-14 20:03 | disposition home or self-care (01) ==
PROVIDERS: Physician Assistant; Physician Assistant Medical; Emergency Provider Emergency Medicine; PCP Physician Assistant Medical
DX: R55 Syncope and collapse (principal); M25.511 Pain in right shoulder; I49.3 Ventricular premature depolarization; Z03.818 Encounter for observation for suspected exposure to other biological agents ruled out; I10 Essential (primary) hypertension; K21.9 Gastro-esophageal reflux disease without esophagitis; I48.91 Unspecified atrial fibrillation; Z86.73 Personal history of transient ischemic attack (TIA), and cerebral infarction without residual deficits; Z79.01 Long term (current) use of anticoagulants
CPT/HCPCS: 36415; 70450; 71046; 80053; 83735; 83880; 84484; 85025; 87637; 93005; 96374; 96375; 99284; 99285; J0131; J2270

== ENCOUNTER → 2025-03-14 12:23 | Outpatient (BNV) | payer MEDICARE, OTHER, MEDICAID, SELFPAY | PROVIDERS: PCP Physician Assistant Medical; Visit Provider Radiology Diagnostic Radiology | DX: R55 Syncope and collapse (principal); H74.8X1 Other specified disorders of right middle ear and mastoid | CPT/HCPCS: 70450; 71046 ==

== ENCOUNTER → 2025-03-14 12:23 | Outpatient (BNV) | payer MEDICARE, OTHER, MEDICAID, SELFPAY | PROVIDERS: Emergency Provider Emergency Medicine; PCP Physician Assistant Medical; Visit Provider Internal Medicine Cardiovascular Disease | DX: I49.3 Ventricular premature depolarization (principal) | CPT/HCPCS: 93010 ==

== ENCOUNTER 2025-03-18 11:38 | Outpatient (REF) | payer OTHER, MEDICARE, MEDICAID, SELFPAY ==
[2025-03-18 13:12] LABS: MANUAL DIFF FLAG NO
[2025-03-18 13:22] LABS: Hematocrit 32.6 % (37.0-47.0); Hemoglobin 11.4 g/dl (12.0-16.0); Imm Gran Abs Auto 0.01 X10*3/uL (0.00-0.03); Imm Gran Pct Auto 0.3 % (0.0-0.4); Lymphocytes Absolute Auto 1.1 X10*3/uL (1.2-4.9); Mean Corpuscular HGB Conc 35.0 g/dl (31.0-35.0); Mean Corpuscular Hemoglobin 31.5 pg (27.0-33.0); Mean Corpuscular Volume 90.1 fL (80.0-98.0); NRBC Abs Auto 0.000 X10*3/uL (0.0-0.012); NRBC Pct Auto 0.0 /100WBC (0.0-0.2); Platelet Count 259 X10*3/uL (160-400); Red Blood Count 3.62 X10*6/uL (4.20-5.50); White Blood Count 3.3 X10*3/uL (4.8-10.8)
[2025-03-18 13:39] LABS: Alanine Aminotransferase 15 U/L (0-31); Albumin Level 3.8 g/dL (3.5-5.0); Alkaline Phosphatase 62 U/L (39-117); Anion Gap 10 (12-20); Aspartate Amino Transferase 34 U/L (5-31); Blood Urea Nitrogen 23 mg/dL (9-16); Calcium 8.7 mg/dL (8.4-10.2); Carbon Dioxide 24 mmol/L (22-29); Chloride 107 mmol/L (96-108); Estimated Glomerular Filt Rate > 60; Magnesium 2.0 mg/dL (1.6-2.6); Potassium 4.3 mmol/L (3.3-5.1); Sodium 137 mmol/L (135-145); Total Protein 8.7 g/dL (6.5-8.0)
== END 2025-03-18 11:39 | disposition home or self-care (01) ==
LOC: HO.HMGCLDS 11:38
PROVIDERS: PCP Physician Assistant Medical; Visit Provider Psychiatry & Neurology Neurology
DX: Z00.00 Encounter for general adult medical examination without abnormal findings (principal); H54.62 Unqualified visual loss, left eye, normal vision right eye
CPT/HCPCS: 36415; 80053; 83735; 85025; 85652; 86140

== ENCOUNTER 2025-03-21 12:45 | Outpatient (REF) | payer OTHER, MEDICARE, MEDICAID, SELFPAY ==
--- NOTE | ~2025-03-21 | CT_ITS ---
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 Included lower neck and mediastinum otherwise unremarkable. No significant chest lymphadenopathy. There is no cardiomegaly or pericardial effusion. The aorta and pulmonary arteries are normal in caliber. There are coronary artery calcifications. The lungs are clear. No pneumothorax or effusions. The airways are patent. Included upper abdomen without acute abnormality. Cholecystectomy clips are noted. The adrenal glands are nonenlarged. There no acute soft tissue or skeletal abnormality in the chest. There are no skeletal lesions. Moderate degenerative changes in the thoracic spine. IMPRESSION: No acute process in the chest. No significant chest lymphadenopathy Moderate heterogeneous nodular enlargement of both lobes of the thyroid gland. This document has been electronically signed by: Benjy Lawrence MD on 03/22/2025 08:29:27
--- OUTSIDE RECORDS SUMMARY | 2025-03-22 01:33 | XMS_ITS | Data Portability ---
Author Organization [place] [facility], Allergy Address [address] [place] [address] Assessment No assessment recorded. Plan of Treatment [...] of nose, middle ear and accessory sinuses 906100766 Active 2019 Benign neoplasm of middle ear, nasal cavity and accessory sinuses; Note: Date Diagnosed : 04/07/2020 1:44 PM (D14.0) Not Available [facility] 02:19:03 Ataxia 10944076 Active 2019 Ataxia, unspecifi ed; Note: Date Diagnosed : 04/07/2020 1:44 PM (R27.0) Not Available [facility] 02:18:41 Dysphagia 46213852 Active 2023 GISELA PRUETT MD 100 [facility],[place] [address], [place], [address] , [facility] - [facility] 10:19:25 Gastroeso phageal reflux disease without esophagit is 007019035 Active 2023 GISELA PRUETT MD 100 [facility],[place] [address], [facility] [place], [address] , [facility] - [facility] 10:19:44 Chronic hoarsenes s 51484484787 05 Active 2023 GISELA PRUETT MD 100 [facility],[place] [address], [facility] [place], [address] , [facility] - [facility] [place] 10:20:46 Problem Notes None recorded. Procedures Surgical History Date Name Laterality Status Provider Name and Address Organization Details Recorded Time 11/11/2023 FFL_RE completed GISELA PRUETT MD [address] [facility],[place] [address], [place], [address], [facility] - [facility] 11/11/2023 10:26:08 Imaging Results None recorded. Procedure Notes None recorded. Medical Equipment None Reported. Allergies Allergen ID Allergen Name Allergen Category Reaction Reaction Severity Criticality Documentation Date Start Date Code Code System Note Provider Name and Address Organization Details Recorded Time 93844 Product containin g penicilli n (product) medicatio n hives Not available Not available 09/16/2023 04709 8001 SNOMED React ion: skin rashe s, hives ;; Not Available [facility] 00:48:35 40696 codeine medicatio n nausea Not available Not available 09/16/2023 2670 RxNorm React ion: Stoma ch cramp s; Not Available [facility] 00:48:40 73041 acetamino phen / oxycodone medicatio n nausea Not available Not available 09/16/2023 69119 3 RxNorm React ion: nause a;; Not Available [facility] 4 00:48:40 Medications Name Sig Start Date [...] 20 mg tablet active Medicatio n ID: [id number] Br and Name: atorvasta tin Send Method: [...] release 24 hr active Medicatio n ID: [id number] Br and Name: isosorbid e mononitra te [...] 300 mg capsule active Medicatio n ID: [id number] and Name: gabapenti n Send Method: E-Prescri [...] 25 mg tablet active Medicatio n ID: [id number] Br and Name: metoprolo l tartrate Send [...] Updated DateTime 11/11/2023 160.02 cm 21.8 kg/m2 19611.86 g Delores Mejía [place] - [facility] 11/11/2023 09:58:27 Social History None recorded. [...] Note 6977 GISELA PRUETT MD [facility] of [address] [address] 11/11/2023 09:08:06 11/11/2023 10:28:26 Dysphagia 21670357 R13.10 see below Gastroesop hageal reflux disease without esophagitis 009283426 K21.9 continue omeprazole per prescribin g provider Chronic hoarseness 51324 52462 105 R49.0 Her right vocal cord is sluggish. No glottic gap. Likely recovering after ACDF. MBS showed a safe swallow. I suspect her neuromuscu lar disorder may contribute to her dysphagia as well and I recommend she keep f/u with her neurologis ts at [facility] [place]. No ENT interventi on needed. No tumors [...] Name 11/19/2024 2 [employer] - [employer]WATER (PPO) [id number] Kristopher Bertin [id number] Ying Denton 11/19/2024 1 [employer] (MEDICARE REPLACEMENT/ ADVANTAGE - PPO) [id number] Ying A Bertin [id number] Ying Denton 11/19/2024 2 [employer] - FORMERLY [facility] BENEFIT PLAN MANAGEMENT (PPO) Ying Denton [id number] Ying Denton Notes Date Note Type Note [...] swallowing. She is being worked up at [facility] for a neurologic disorder. She has muscle cramping and she can't use her left arm well. On omeprazole for GERD. Hx of ACDF. She has had some voice trouble since with difficulty projecting. GISELA PRUETT MD [address] [place] [address], [place], [address], [place] [facility] 11/11/2023 10:28:19 OBGyn Episode No OBEpisode recorded.
== END 2025-03-21 12:46 | disposition home or self-care (01) ==
LOC: HO.CT 12:45
PROVIDERS: PCP Physician Assistant Medical; Visit Provider Nurse Practitioner Family
DX: G25.82 Stiff-man syndrome (principal); R06.00 Dyspnea, unspecified; J84.10 Pulmonary fibrosis, unspecified
CPT/HCPCS: 71250

== ENCOUNTER → 2025-03-21 12:47 | Outpatient (BNV) | payer OTHER, MEDICARE, MEDICAID, SELFPAY | PROVIDERS: PCP Physician Assistant Medical; Visit Provider Radiology Diagnostic Radiology | DX: G25.82 Stiff-man syndrome (principal) | CPT/HCPCS: 71250 ==

== ENCOUNTER 2025-03-24 13:02 | Outpatient (AMB) | payer OTHER, MEDICARE, MEDICAID, SELFPAY ==
[2025-03-24 13:19] VITALS: BMI 22.5
--- NOTE | 2025-03-24 13:19 | MHC.AMNUTRGE ---
VS Expanded 03/24/25 13:19 Height 5 ft 4 in Weight 131 lb BMI 22.5 Intake Visit Reasons: Overweight Allergies Beta-Blockers (Beta-Adrenergic Bloc Allergy (Mild, Verified 03/14/25 12:24) blood pressure drop house dust Allergy (Mild, Verified 03/14/25 12:24) Anaphylaxis penicillin G (Penicillin G) Allergy (Mild, Verified 03/14/25 12:24) RASH penicillin V Allergy (Unknown, Verified 03/14/25 12:24) Abdominal Pain adhesive Allergy (Verified 03/14/25 12:24) Blister mold Allergy (Verified 03/14/25 12:24) Headache Yqxrbfu-ZPU-ZlG Reductase Inhibitor Allergy (Verified 03/14/25 12:24) Weakness codeine (Codeine) Adverse Reaction (Mild, Verified 03/14/25 12:24) SEVERE ABDOMINAL PAIN Nutrition Presentation Details: Pt presents form [facility] for overweight 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3 mmol/L 03/18/25 Chloride, (96-108) 107 mmol/L 03/18/25 Carbon Dioxide, (22-29) 24 mmol/L 03/18/25 Calcium, (8.4-10.2) 8.7 mg/dL 03/18/25 AST, (5-31) 34 U/L H 03/18/25 ALT, (0-31) 15 U/L 03/18/25 Total Protein, (6.5-8.0) 8.7 g/dL H 03/18/25 Albumin, (3.5-5.0) 3.8 g/dL 03/18/25 NII-Bkbzypi-Ge.Jeor Equation Height: 5 ft 4 in Weight: 131 lb Resting Metabolic Rate: 1128.81 Calculated Activity Level: Mild Activity Calories Needed to Maintain Weight: 1552.11 Diagnosis Nutrition problem #1: food nutri know defi As related to (etiology) #1: physical inactivity As evidenced by (sign/symptom) #1: knowledge deficit of diet [facility] Medical History (Updated 03/22/25 @ 10:21 by Ellie Kan PA-C) Multiple thyroid nodules Hypertension Urinary urgency Urinary, incontinence, stress female Muscle weakness Blurry vision Intestinal cramps Bladder retention Carpal tunnel syndrome Right hand pain Overweight (BMI 25.0-29.9) Intermittent palpitations Neurogenic bladder History of mammogram (~2022) Ataxia Coronary artery spasm Coronary artery anomaly Hair loss Hemorrhoids Diverticulosis Tubular adenoma Eczema Fibrocystic breast disease Herpes simplex Hypersomnia Witnessed apneic spells Arthritis Difficulty swallowing Weakness On anticoagulant therapy Lumbar spondylosis Spinal stenosis in cervical region Restless legs syndrome (RLS) Anemia Fatigue Cervical spondylosis Anxiety Bipolar disease, manic Occasional tremors Obstructive sleep apnea Insomnia GERD (gastroesophageal reflux disease) Cardiac microvascular disease TIA (transient ischemic attack) Atrial fibrillation Cardiomyopathy Surgical History H/O cervical discectomy History of partial hysterectomy History of tonsillectomy Hx of hand surgery History of radiofrequency ablation procedure for cardiac arrhythmia History of esophagogastroduodenoscopy (EGD) H/O colonoscopy (~10/05/20) H/O radiofrequency ablation (RFA) of nerve of lumbar spine Hx of cervical spine surgery Hx of shoulder surgery H/O: knee surgery Hx of cholecystectomy History of carpal tunnel release Hx of appendectomy Family History Father Dementia Cancer Mother Cancer COPD (chronic obstructive pulmonary disease) Multiple sclerosis Daughter Myasthenia Social History Household Members: Significant Other Housing: House Are you a primary early breastfeeding care specialist to a significant other at home: No Do you presently have visiting nurse 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, 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) Alcohol intake: current Alcohol intake frequency: does not drink Patient Tobacco Use Status: Former Tobacco user Advance Directives Date on File: 04/10/23 service: No Current occupational status: disabled Cognitive needs: Yes (cane ) Hearing needs: No Vision needs: Yes (rx glasses) Assessment & Plan Assessment & Plan (1) Overweight (BMI 25.0-29.9): Code(s): E66.3 - Overweight Category: Medical Plan: Patient currently at a healthy weight according to BMI of 22.5 on March 2025 Patient Instructions: Work on having 3 meals a day, following healthy plate method Keep hydrated by having water, diluted juice with water with meals Keep a food record and bring to your next follow-up to review Coding Level of Care Code Nutr Indiv Intake (19658) Diagnoses Overweight (BMI 25.0-29.9) E66.3 Time Spent (min) 30
--- OUTSIDE RECORDS SUMMARY | 2025-03-24 18:39 | XMS_ITS | Clinical Summary ---
Author Organization [facility] Address [address] [place] [address] Care Team Providers Care Before And After School Daycare Worker Name Role Phone Gustavo Suarez DO Primary Care Provider [phone] Allergies Active Allergy Reactions Criticality Noted Date [...] 5 12/01/2023 Active ergocalciferol (VITAMIN D2) capsule 71400 units Take 1 capsule (50,000 Units total) [...] age to complete this topic Care Teams Before And After School Daycare Worker Relationship Specialty Start Date End Date Gustavo Suarez DO [address] [place] [phone] PCP - General Internal Medicine 06/23/18
--- OUTSIDE RECORDS SUMMARY | 2025-03-24 18:39 | XMS_ITS | Continuity of Care Document ---
Author Organization [facility] [address] [place] [address] Phone [phone] Care Team Providers Care Rental Car Deliverer Name Role Phone Gustavo Suarez M.D. Care Team Information Recei yadira [phone] Clarence Leiva MD Care Team Information R eceiver [phone] Problems Active Problems Provider Date Multinodular goiter [...] Apply 1 Patch Once A Week Unknown Gihewgws86pi Tablets Take 1 Tablet By Mouth Twice Daily as Needed For Muscle Spasm Krystina Mendez, SPANISH LINGUIST Zpudjvfly7es Tablets Take half hs Unknow n Vitamin D (Ergocalciferol)1.25mg (78325 Ut) Capsules Take 1 Capsule By Mouth every other week Unknown Nufpjzigkv21iy Capsules DR Take 1 Capsule By Mouth Every Day 30 Minutes Before Breakfast Gustavo Suarez M.D. Kwsaytekhu004zo Tablets 300mg am, 300mg 2pm, 1200mg 8pm Unknown Opikirb1pz Tablets Take 1 Tablet By Mouth Twice Daily Linda Astudillo MD Lamotrigine LE393tj Tablets ER 24HR Take 2 Tablets By Mouth Every Day Unknown Methylphenidate PLT40bi Tablets Take 1 Tablet By Mouth Three Times Daily prn Unknown Valacyclovir DYX335lw Tablets Unknown Tizanidine HCL2mg Tablets Unknown Dicyclomine XLB87hh Capsules Take 1 Capsule By Mouth Four [...] 77 TSH With Reflex To FT4 12/12/2022 [facility] TSH With Reflex To FT4 0.33 uIU/mL Low (0.4-4. 2) Anti Thyroid Peroxidase AB 12/12/2022 [facility] Anti Thyroid Peroxidase AB <3.0 IU/mL (<5.6) 1 25Oh Vitamin D 12/12/2022 [facility] 25Oh Vitamin D 50.0 NG/ML (20-50) Free T4 12/12/2022 [facility] Free T4 0.90 ng/dL (0.70-1 .80) 1 Antibody measurement represents one parameter in a multicriteria diagnostic process. Correlate results with clinical presentation. This test was performed on the [employer] immunoassay system. Medical Devices Description No Information [...]
--- OUTSIDE RECORDS SUMMARY | 2025-03-24 18:39 | XMS_ITS | Data Portability ---
Author Organization [place] [facility], Allergy Address [address] [address] Assessment No assessment recorded. Plan of Treatment [...] of nose, middle ear and accessory sinuses [id number] Active 2019 Benign neoplasm of middle ear, nasal cavity and accessory sinuses; Note: Date Diagnosed : 04/07/2020 1:44 PM (D14.0) Not Available [facility] 02:19:03 Ataxia 69814844 Active 2019 Ataxia, unspecifi ed; Note: Date Diagnosed : 04/07/2020 1:44 PM (R27.0) Not Available [facility] 02:18:41 Dysphagia 45124131 Active 2023 GISELA PRUETT MD [address] [facility],[place] [address], [place], [address] , [facility] - [facility] 10:19:25 Gastroeso phageal reflux disease without esophagit is 124588445 Active 2023 GISELA PRUETT MD [address] [facility],[place] [address], [place], [address] , [facility] - [facility] 10:19:44 Chronic hoarsenes s 42138418663 05 Active 2023 GISELA PRUETT MD [address] [facility],[place] [address], [place], [address] , [facility] - [facility] [place] 10:20:46 Problem Notes None recorded. Procedures Surgical History Date Name Laterality Status Provider Name and Address Organization Details Recorded Time 11/11/2023 FFL_RE completed GISELA PRUETT MD [address] [facility],[place] [address], [place], [address], [facility] - [facility] 11/11/2023 10:26:08 Imaging Results None recorded. Procedure Notes None recorded. Medical Equipment None Reported. Allergies Allergen ID Allergen Name Allergen Category Reaction Reaction Severity Criticality Documentation Date Start Date Code Code System Note Provider Name and Address Organization Details Recorded Time 54595 Product containin g penicilli n (product) medicatio n hives Not available Not available 09/16/2023 61003 8001 SNOMED React ion: skin rashe s, hives ;; Not Available [facility] 00:48:35 84116 codeine medicatio n nausea Not available Not available 09/16/2023 2670 RxNorm React ion: Stoma ch cramp s; Not Available [facility] 00:48:40 69100 acetamino phen / oxycodone medicatio n nausea Not available Not available 09/16/2023 90716 3 RxNorm React ion: nause a;; Not Available [facility] 4 00:48:40 Medications Name Sig Start Date [...] 20 mg tablet active Medicatio n ID: [id number] Br and Name: atorvasta tin Send Method: [...] release 24 hr active Medicatio n ID: [id number] Br and Name: isosorbid e mononitra te [...] 300 mg capsule active Medicatio n ID: [id number] and Name: gabapenti n Send Method: E-Prescri [...] 25 mg tablet active Medicatio n ID: [id number] Br and Name: metoprolo l tartrate Send [...] Updated DateTime 11/11/2023 160.02 cm 21.8 kg/m2 84362.86 g Delores Mejía [place] [facility] 11/11/2023 09:58:27 Social History None recorded. [...] Note 6977 GISELA PRUETT MD [facility] [address] [address] 11/11/2023 09:08:06 11/11/2023 10:28:26 Dysphagia 72123786 R13.10 see below Gastroesop hageal reflux disease without esophagitis 117558078 K21.9 continue omeprazole per prescribin g provider Chronic hoarseness 21752 41406 105 R49.0 Her right vocal cord is sluggish. No glottic gap. Likely recovering after ACDF. MBS showed a safe swallow. I suspect her neuromuscu lar disorder may contribute to her dysphagia as well and I recommend she keep f/u with her neurologis ts at [place]. No ENT interventi on needed. No tumors [...] Name 11/19/2024 2 [employer] - [employer] (PPO) [id number] Kristopher Bertin [id number] Ying Denton 11/19/2024 1 [employer] (MEDICARE REPLACEMENT/ ADVANTAGE - PPO) [id number] Ying A Bertin [id number] Ying Denton 11/19/2024 2 [employer] - FOR[facility]LY [facility] BENEFIT PLAN MANAGEMENT (PPO) Ying Denton [id number] Ying Denton Notes Date Note Type Note [...] swallowing. She is being worked up at [place] for a neurologic disorder. She has muscle cramping and she can't use her left arm well. On omeprazole for GERD. Hx of ACDF. She has had some voice trouble since with difficulty projecting. GISELA PRUETT MD [address] [place] [address], [place], [address], [place] [facility] 11/11/2023 10:28:19 OBGyn Episode No OBEpisode recorded.
[2025-03-28 10:44] VITALS: BMI 22.5
== END 2025-03-24 13:46 | disposition home or self-care (01) ==
LOC: HO.ENCR 13:02
PROVIDERS: PCP Physician Assistant Medical; Visit Provider Dietitian, Registered
DX: E66.3 Overweight (principal)

== ENCOUNTER → 2025-03-24 13:02 | Outpatient (BNVA) | payer OTHER, MEDICARE, MEDICAID, SELFPAY | PROVIDERS: PCP Physician Assistant Medical; Visit Provider Dietitian, Registered | DX: E66.3 Overweight (principal) | CPT/HCPCS: 97802 ==

== ENCOUNTER 2025-03-29 14:42 | Outpatient (AMB) | payer MEDICARE, OTHER, SELFPAY ==
--- NOTE | 2025-03-29 14:44 | MHC.OFFVIS ---
Vital Signs 03/29/25 14:45 Height 5 ft 4 in Weight 131 lb 2 oz BMI 22.5 BP 80/52 L Blood Pressure Location Rt brachial Position Sitting Pulse 83 Pulse Source Pulse Oximeter Pulse Oximetry (%) 100 Oxygen Delivery Method Room Air Intake Visit Reasons: Dyspnea Allergies Beta-Blockers (Beta-Adrenergic Bloc Allergy (Mild, Verified 03/29/25 14:49) blood pressure drop house dust Allergy (Mild, Verified 03/29/25 14:49) Anaphylaxis penicillin G (Penicillin G) Allergy (Mild, Verified 03/29/25 14:49) RASH penicillin V Allergy (Unknown, Verified 03/29/25 14:49) Abdominal Pain adhesive Allergy (Verified 03/29/25 14:49) Blister mold Allergy (Verified 03/29/25 14:49) Headache Dlzbmrd-CYF-VkP Reductase Inhibitor Allergy (Verified 03/29/25 14:49) Weakness codeine (Codeine) Adverse Reaction (Mild, Verified 03/29/25 14:49) SEVERE ABDOMINAL PAIN HPI HPI Dyspnea: Details: Ying is a pleasant 65 year old female, never smoker, 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 PFT 05/2024 suggestive of small airways disease and has been using albuterol MDI infrequently with good effect. She continues to report muscle spasms and chest wall tightness affecting her breathing secondary to SPS which has responded well to muscle relaxers. She also is under the care of a specialist for dry needling and muscle relief therapies, which she has benefitted from. At this time, she feels respiratory symptoms are relatively controlled. Today she presents to review chest CT results. Of note, patient reports significant difficulties managing diagnosis of stiff person syndrome including multiple specialists and medications. [facility] Medical History (Updated 03/22/25 @ 10:21 by Ellie Kan PA-C) Multiple thyroid nodules Hypertension Urinary urgency Urinary, incontinence, stress female Muscle weakness Blurry vision Intestinal cramps Bladder retention Carpal tunnel syndrome Right hand pain Overweight (BMI 25.0-29.9) Intermittent palpitations Neurogenic bladder History of mammogram (~2022) Ataxia Coronary artery spasm Coronary artery anomaly Hair loss Hemorrhoids Diverticulosis Tubular adenoma Eczema Fibrocystic breast disease Herpes simplex Hypersomnia Witnessed apneic spells Arthritis Difficulty swallowing Weakness On anticoagulant therapy Lumbar spondylosis Spinal stenosis in cervical region Restless legs syndrome (RLS) Anemia Fatigue Cervical spondylosis Anxiety Bipolar disease, manic Occasional tremors Obstructive sleep apnea Insomnia GERD (gastroesophageal reflux disease) Cardiac microvascular disease TIA (transient ischemic attack) Atrial fibrillation Cardiomyopathy Surgical History H/O cervical discectomy History of partial hysterectomy History of tonsillectomy Hx of hand surgery History of radiofrequency ablation procedure for cardiac arrhythmia History of esophagogastroduodenoscopy (EGD) H/O colonoscopy (~10/05/20) H/O radiofrequency ablation (RFA) of nerve of lumbar spine Hx of cervical spine surgery Hx of shoulder surgery H/O: knee surgery Hx of cholecystectomy History of carpal tunnel release Hx of appendectomy Family History Father Dementia Cancer Mother Cancer COPD (chronic obstructive pulmonary disease) Multiple sclerosis Daughter Myasthenia Social History Household Members: Significant Other Housing: House Are you a primary care management specialist to a significant other at home: No Do you presently have visiting nurse 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, DIRECTOR STYLE) Alcohol intake: current Alcohol intake frequency: does not drink Patient Tobacco Use Status: Former Tobacco user Advance Directives Date on File: 04/10/23 service: No Current occupational status: disabled Cognitive needs: Yes (cane ) Hearing needs: No Vision needs: Yes (rx glasses) Review of Systems Const Denies chills, Denies excessive sweating, Denies fever(s) and Denies night sweats Eyes Denies dry eyes, Denies irritation and Denies itchy eyes ENT Reports Normal hearing present, Denies nasal congestion, Denies nasal discharge, Denies post nasal drip and Denies sore throat Card Denies claudication, Denies leg edema, Reports dyspnea, Reports dyspnea on exertion and Denies paroxysmal nocturnal dyspnea Resp Denies chest congestion, Denies cough, Denies hemoptysis, Denies excessive phlegm production, Denies pain on inspiration, Denies pain with cough, Reports dyspnea, Reports dyspnea on exertion, Denies stridor and Denies wheezing Musc Reports muscle cramps and Reports muscle weakness Neuro Reports Normal hearing present Endo Denies excessive sweating Laron/Lymph Denies lymphadenopathy Aller/Immun Denies itchy eyes, Denies seasonal rhinorrhea and Denies wheezing Physical Exam Vital Signs: Last Vital Signs Pulse 83 03/29/25 14:45 BP 80/52 L 03/29/25 14:45 Pulse Ox 100 03/29/25 14:45 Oxygen Delivery Method Room Air 03/29/25 14:45 BMI result Body Mass Index 22.5 Const General: cooperative, healthy appearing, comfortable, no acute distress, well developed and alert Orientation/consciousness: patient oriented x3 Limitations: ambulation with cane HEENT Head: Yes normal to inspection, Yes normocephalic and Yes atraumatic Ears: hearing grossly normal bilaterally and external ears normal Eyes General: appearance normal, both eyes and all related structures Eyelids: Yes eyelids normal Sclerae: sclerae normal EOM: EOMs intact bilaterally Neck Neck: Yes normal visual inspection and Yes no lymphadenopathy Lymphatic: no lymphadenopathy noted Chest Chest palpation & inspection: normal inspection of the chest Resp Effort & Inspection: normal respiratory effort, able to speak in complete sentences, no audible wheezes, no cough, no stridor, not tachypneic, no tripod positioning and no use of accessory muscles Auscultation: clear to auscultation bilaterally Cardio Jugular venous distension: no JVD Rate: regular rate Rhythm: regular rhythm Skin Other: warm, dry General skin exam: no rashes or lesions noted Neuro General: patient oriented x3 Cranial nerves: Yes Normal hearing present Cognition (Neuro): normal cognition Gait exam (Neuro): Normal gait present Extrem General: Yes normal to inspection, Yes capillary refill normal, Yes no clubbing, cyanosis or edema and Yes no pedal edema Psych Appearance: grossly normal and well kempt Speech and movement: Normal speech and movement present and Clear speech present Affect: normal affect Attitude: cooperative Thought process: Normal thought process present Thought content: Normal thought content present Insight: Good insight present (Psych) Judgement: Good judgement present (Psych) Results Reviewed Results Reviewed: [address] [place] [address] CT Scan Report Signed Patient: Ying Denton MR#: [id number] : 1960 Acct:[id number] Age/Sex: 65 / F ADM Date: 03/21/25 Loc: HO.CT Attending Dr: Charmaine Jeter NP Ordering Physician: Charmaine Jeter NP Date of Service: 03/21/25 Procedure(s): CT chest wo IV con Accession Number(s): [id number] cc: Ellie Kan PA-C; Charmaine Jeter NP~ Report Number: [id number]: Total DLP = 111.00 mGy-cm Reason for Exam: G25.82 - Stiff-man syndrome 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 Included lower neck and mediastinum otherwise unremarkable. No significant chest lymphadenopathy. There is no cardiomegaly or pericardial effusion. The aorta and pulmonary arteries are normal in caliber. There are coronary artery calcifications. The lungs are clear. No pneumothorax or effusions. The airways are patent. Included upper abdomen without acute abnormality. Cholecystectomy clips are noted. The adrenal glands are nonenlarged. There no acute soft tissue or skeletal abnormality in the chest. There are no skeletal lesions. Moderate degenerative changes in the thoracic spine. IMPRESSION: No acute process in the chest. No significant chest lymphadenopathy Moderate heterogeneous nodular enlargement of both lobes of the thyroid gland. This document has been electronically signed by: Benjy Lawrence MD on 03/22/2025 08:29:27 Dictated By: Benjy Lawrence MD Signed By: <Electronically signed by Benjy Lawrence MD in OV> 03/22/25829 DD/ 8 TD/TT: 03/22/25828 Tours Captain: Assessment & Plan Assessment & Plan (1) Stiff person syndrome: Code(s): G25.82 - Stiff-man syndrome Category: Medical (2) Dyspnea: Code(s): R06.00 - Dyspnea, unspecified Category: Medical Plan Prior PFT revealed no obstructive or restrictive ventilatory defect. Bronchodilator response is present in small to medium airways only. Lung volumes WNL. DLCO normal. Will repeat PFT in 05/2025. Reviewed chest CT report which revealed scattered tiny granulomas, which has been stable on recent chest CT. Incidental finding of thyroid enlargement, PCP aware and has upcoming ultrasound scheduled next month. She reports significant concerns with medications, progression of disease and limited knowledge from providers regarding the diagnosis of stiff person syndrome. Discussed importance of following up with a specialist at [place] regarding current regimen including muscle relaxers. Will send referral to nurse navigator to see what resources we can provide patient. Encouraged patient to continue albuterol MDI prn and continue with therapies to manage muscle spasms/tightness. All questions were answered and patient is in agreement of plan. Will follow up in 3-6 months or sooner if needed. Orders: Referrals Nurse Navigator Referral G25.82 - Stiff-man syndrome Coding Level of Care Code Complex visit Add On G2211 Diagnoses Stiff person syndrome G25.82 Dyspnea R06.00
[2025-03-29 14:45] VITALS: BP 80/52; PULSE 83; O2SAT 100; BMI 22.5
--- OUTSIDE RECORDS SUMMARY | 2025-03-29 18:29 | XMS_ITS | Continuity of Care Document ---
Author Organization [facility] [address] [facility] [address] [place] [address] Phone [phone] Care Team Providers Care Tool Design Drafter Name Role Phone Gustavo Suarez M.D. Care Team Information Recei yadira [phone] Clarence Leiva MD Care Team Information R eceiver [phone] Problems Active Problems Provider Date Multinodular goiter [...] Apply 1 Patch Once A Week Unknown Icqxyvit40dr Tablets Take 1 Tablet By Mouth Twice Daily as Needed For Muscle Spasm Krystina Mendez, OFFICER CAPTAIN Mdxfpkahs2qd Tablets Take half hs Unknow n Vitamin D (Ergocalciferol)1.25mg (88599 Ut) Capsules Take 1 Capsule By Mouth every other week Unknown Ilsktnarhf00qz Capsules DR Take 1 Capsule By Mouth Every Day 30 Minutes Before Breakfast Gustavo Suarez M.D. Jkzsfhdsgm931nn Tablets 300mg am, 300mg 2pm, 1200mg 8pm Unknown Kqnhazj1yj Tablets Take 1 Tablet By Mouth Twice Daily Linda Astudillo MD Lamotrigine FZ882bq Tablets ER 24HR Take 2 Tablets By Mouth Every Day Unknown Methylphenidate TWL24xb Tablets Take 1 Tablet By Mouth Three Times Daily prn Unknown Valacyclovir UVQ818zc Tablets Unknown Tizanidine HCL2mg Tablets Unknown Dicyclomine GDO65ug Capsules Take 1 Capsule By Mouth Four [...] 77 TSH With Reflex To FT4 12/12/2022 [facility] TSH With Reflex To FT4 0.33 uIU/mL Low (0.4-4. 2) Anti Thyroid Peroxidase AB 12/12/2022 [facility] Anti Thyroid Peroxidase AB <3.0 IU/mL (<5.6) 1 25Oh Vitamin D 12/12/2022 [facility] 25Oh Vitamin D 50.0 NG/ML (20-50) Free T4 12/12/2022 [facility] Free T4 0.90 ng/dL (0.70-1 .80) 1 Antibody measurement represents one parameter in a multicriteria diagnostic process. Correlate results with clinical presentation. This test was performed on the [employer] immunoassay system. Medical Devices Description No Information [...]
--- OUTSIDE RECORDS SUMMARY | 2025-03-29 18:29 | XMS_ITS | Encounter Summary ---
Author Organization [facility] Address [address] [place] [address] Care Team Providers Care Body Mechanic Name Role Phone No, Pcp (Do Not Change Name) Primary Care Provid er Unavailable Encounter Details Date Type Department Care Team (Late st Contact Info) Description 06/09/2024 Scanned Document INTERFACE DEFAULT [address] [place] [address] System, Provider Not In Social History [...] Office Visit [facility] [address] [place] [address] Richard Lewis MD [address] [place] [address] documented as of this encounter Visit Diagnoses Not on filedocumented in this encounter Additional Health Concerns Assessment Noted Time PHQ-9 Depression Total Score: 0 01/27/20 8:26 AM EDT documented as of this encounter Care Teams Body Mechanic Relationship Specialty Start Date End Date No, Pcp (Do Not Change Name) PCP - General 07/19/24 documented as of this encounter
--- OUTSIDE RECORDS SUMMARY | 2025-03-29 18:29 | XMS_ITS | Encounter Summary ---
Author Organization [facility] Address [address] [place] [address] Care Team Providers Care Adventure Guide Name Role Phone No, Pcp (Do Not Change Name) Primary Care Provid er Unavailable Encounter Details Date Type Department Care Team (Late st Contact Info) Description 10/10/2023 Transcribed Orders [facility] SCHEDULING [address] [place] [address] Referral, Self Social History Tobacco [...] 05/31/2025 3:30 PM EST Office Visit [facility] [address] [address] Richard Lewis MD [address] [place] [address] documented as of this encounter Visit Diagnoses Not on filedocumented in this encounter Additional Health Concerns Assessment Noted Time PHQ-9 Depression Total Score: 0 09/24/19 24 9:25 AM EDT documented as of this encounter Care Teams Adventure Guide Relationship Specialty Start Date End Date No, Pcp (Do Not Change Name) PCP - General 07/19/24 documented as of this encounter
--- OUTSIDE RECORDS SUMMARY | 2025-03-29 18:29 | XMS_ITS | Clinical Summary ---
Author Organization [facility] Address [address] [place] [address] Care Team Providers Care Talent Management Manager Name Role Phone Gustavo Suarez DO [...] 5 12/01/2023 Active ergocalciferol (VITAMIN D2) capsule 19477 units Take 1 capsule (50,000 Units total) [...] age to complete this topic Care Teams Talent Management Manager Relationship Specialty Start Date End Date Gustavo Suarez DO [address] [place] [phone] PCP - General Internal Medicine 06/23/18
--- OUTSIDE RECORDS SUMMARY | 2025-03-29 18:29 | XMS_ITS | Clinical Summary ---
Author Organization [facility] Address [address] [address] Phone Care Team Providers Care Landing Signal Officer Name Role Phone Clarence Leiva MD Primary Care Provider [phone] Allergies Active Allergy Reactions Criticality Noted Date [...] CAD (coronary artery disease) 06/09/2024 Non-ST elevation UT (NSTEMI) ([facility] V24, [facility]/ [facility] V28) 06/09/2024 Dizziness 04/14/2024 Assessment [...] this time she is working with a atomic physics teacher and will continue to work on dietary adjustments, alternative therapies may be readdressed at her next visit. I have reviewed with the patient the importance of a heart healthy lifestyle which includes eating a low-fat low-salt diet, getting regular exercise, maintaining a healthy weight, not smoking, and following up with routine medical care. PAF (paroxysmal atrial fibri llation) ([facility] V24, [facility] V28) 03/10/2024 Assessment & Plan (04/14/2024 4:08 [...] DX:Hypertension A-fib (CMS/HCC V24, CMS/HCC V28) DX:A-fib ([facility]) Cardiac microvascular disease DX :Cardiac microvascular disease [...] LAB CHEMISTRY METHOD 04/05/2024 3:28 PM EST [facility] Alkaline Phosphatase 65 42 - 121 unit/L LAB CHEMISTRY METHOD 04/05/2024 3:28 PM EST [facility] Total Protein 6.6 6.0 - 8.0 g/dL LAB CHEMISTRY METHOD 04/05/2024 3:28 PM EST [facility] Albumin 3.7 3.2 - 5.0 g/dL LAB CHEMISTRY METHOD 04/05/2024 3:28 PM [facility] Total Bilirubin 0.6 0.0 - 1.4 mg/dL LAB CHEMISTRY METHOD 04/05/2024 3:28 PM [facility] Blood Venous blood specimen / Unknown Venipuncture / Unknown 04/05/2024 2:46 PM EST 04/05/2024 2:59 PM EST Enrique Moyer MD LAB BLOOD ORDERABLES Final Result [facility] [address] [place] [address], from Last 3 Months or Most Recently Relevant to Health Maintenance Insurance [employer] MEDICARE ADVANTAGE [facility] Advance Directives Documents on File Type Date Recorded Patient Outside Property Agent Expl anation Health Care Decision (hx) 02/15/2022 AD SPAULDING DIRECTIVE Health Care Decision (hx) 02/15/2022 AD SPAULDING DIRECTIVE Health Care Decision (hx) 02/15/2022 AD SPAULDING DIRECTIVE Care Teams Landing Signal Officer Relationship Specialty Start Date End Date Clarence Leiva MD [place] [facility] [address] [place] [address] [address] [place] [address] PCP - General Internal Medicine 08/02/24
--- OUTSIDE RECORDS SUMMARY | 2025-03-29 18:29 | XMS_ITS | Encounter Summary ---
Author Organization [facility] and [facility] Address [address] [place] [phone] Care Team Providers Care Reinforcing Bar Setter Name Role Phone No, Pcp (Do Not Change Name) Primary Care Provid er Unavailable Encounter Details Date Type Department Care Team (Late st Contact Info) Description 08/08/2023 Scanned Document [facility] [address] [place] [address] [phone] Marquita Gallegos MD [address] [place] [phone] Social History Tobacco Use Types Packs/Day [...] Office Visit [facility] [address] [place] [address] [phone] Richard Lewis MD [address] [place] [phone] documented as of this encounter Visit Diagnoses Not on filedocumented in this encounter Care Teams Reinforcing Bar Setter Relationship Specialty Start Date End Date No, Pcp (Do Not Change Name) PCP - General 07/19/24 documented as of this encounter
--- OUTSIDE RECORDS SUMMARY | 2025-03-29 18:30 | XMS_ITS | Encounter Summary ---
Author Organization [facility] and [facility] Address [address] [place] [address] Care Team Providers Care Miller Wood Flour Name Role Phone No, Pcp (Do Not Change Name) Primary Care Provid er Unavailable Reason for Referral * Physical Medicine (Routine) - New Request Specialty Diagnoses / Procedures Referred By Maria Isabel shahid Referred To Contact Physical Therapy Diagnoses Weakness Muscle spasm Richard Lewis MD [address] [place] [address] Phone: tel: fax: Referral ID Status Reason Start Date Expiration Date Visits Requested Visits Authorized [id number] New Request Specialty Services Required 07/26/2024 07/26/2025 1 1 Reason for Visit * Reason Onset Date Comments Triage 07/26/2024 Increased muscle spasms Encounter Details Date Type Department Care Team (Late st Contact Info) Description 07/26/2024 Telephone [facility] [address] [address] Richard Lewis MD [address] [place] [address] Triage (Increased muscle spasms ) [...] EST Office Visit [facility] [address] [place] [address] Richard Lewis MD [address] [place] [address] Scheduled Referrals Name Type Priority [...] documented as of this encounter Care Teams Miller Wood Flour Relationship Specialty Start Date End Date No, Pcp (Do Not Change Name) PCP - General 07/19/24 documented as of this encounter
--- OUTSIDE RECORDS SUMMARY | 2025-03-29 18:30 | XMS_ITS | Encounter Summary ---
Author Organization [facility] and [facility] Address [address] [place] [phone] Care Team Providers Care Metal Flow Coordinator Name Role Phone No, Pcp (Do Not Change Name) Primary Care Provid er Unavailable Encounter Details Date Type Department Care Team (Late st Contact Info) Description 09/30/2024 Scanned Document INTERFACE DEFAULT [address] [place] [address] [phone] System, Provider Not In Social History Tobacco [...] Office Visit [facility] [address] [place] [address] Richard Lewis MD [address] [place] [phone] documented as of this encounter Visit Diagnoses Not on filedocumented in this encounter Additional Health Concerns Assessment Noted Time PHQ-9 Depression Total Score: 0 01/27/20 24 8:26 AM EDT documented as of this encounter Care Teams Metal Flow Coordinator Relationship Specialty Start Date End Date No, Pcp (Do Not Change Name) PCP - General 07/19/24 documented as of this encounter
--- OUTSIDE RECORDS SUMMARY | 2025-03-29 18:30 | XMS_ITS | Encounter Summary ---
Author Organization [facility] and [facility] Address [address] [place] [address] Care Team Providers Care Shop Clerk Name Role Phone No, Pcp (Do Not Change Name) Primary Care Provid er Unavailable Reason for Visit * Reason Onset Date Comments Triage 09/29/2024 ? Medication den ial Encounter Details Date Type Department Care Team (Late st Contact Info) Description 09/29/2024 Telephone [facility] 6 [facility] [address] [place] [address] Richard Lewis MD [address] [place] [address] Triage (? Medication denial ) [...] EST Office Visit [facility] [address] [place] [address] [phone] Richard Lewis MD [address] [place] [address] documented as of this encounter Visit Diagnoses Not on filedocumented in this encounter Additional Health Concerns Assessment Noted Time PHQ-9 Depression Total Score: 0 01/27/20 24 8:26 AM EDT documented as of this encounter Care Teams Shop Clerk Relationship Specialty Start Date End Date No, Pcp (Do Not Change Name) PCP - General 07/19/24 documented as of this encounter
--- OUTSIDE RECORDS SUMMARY | 2025-03-29 18:30 | XMS_ITS | Clinical Summary ---
Author Organization [address] Address [address] [place] [phone] Care Team Providers Care Body Coverer Name Role Phone No, Pcp (Do [...] 05/2021 Penicillins Hives,Other (See Comments),Rash High 07/09/2017 Ekbbvnh-Kgv-Pcc Reductase Inhibitors Other (See Comments) Medium 07/19/2024 [...] Encounters Date Type Department Care Team Description 03/16/2025 Telephone [facility] [address] [place] [address] Richard Lewis MD Triage 03/08/2025 Telephone [facility] [address] [place] [address] Richard Lewis MD Other 03/02/2025 Telephone [facility] [address] [place] [address] Richard Lewis MD Triage 01/28/2025 Telephone [facility] [address] [place] [address] Richard Lewis MD Other 01/21/2025 Refill [facility] [address] [place] [address] Richard Lewis MD Medication Refill 01/20/2025 Scanned Document INTERFACE DEFAULT [address] [place] [address] System, Provider Not In 01/19/2025 Scanned Document INTERFACE DEFAULT [address] [place] [address] System, Provider Not In 01/17/2025 Telephone [facility] [address] [place] [address] Richard Lewis MD Other 01/14/2025 Telephone [facility] [address] [place] [address] Richard Lewis MD Other 01/07/2025 Telephone [facility] [address] [place] [address] Richard Lewis MD Triage 12/30/2024 Refill [facility] [address] [place] [address] Richard Lewis MD Medication Problem 12/29/2024 Telephone [facility] [address] [place] [address] Richard Lewis MD Medication Problem from Last 3 Months Social History Tobacco [...] Office Visit [facility] [address] [address] Richard Lewis MD [address] [place] [address] Health Maintenance Due Date Last [...] to complete this topic Insurance [facility] MEDICARE [facility] MEDICARE [facility] MEDICARE Care Teams Body Coverer Relationship Specialty Start Date End Date No, Pcp (Do Not Change Name) PCP - General 07/19/24
--- OUTSIDE RECORDS SUMMARY | 2025-03-29 18:30 | XMS_ITS | Encounter Summary ---
Author Organization [facility] and [facility] Address [address] [place] [phone] Care Team Providers Care General Accounting Clerk Name Role Phone No, Pcp (Do Not Change Name) Primary Care Provid er Unavailable Encounter Details Date Type Department Care Team (Late st Contact Info) Description 01/19/2025 Scanned Document INTERFACE DEFAULT [address] [place] [address] [phone] System, Provider Not In Social History Tobacco [...] EST Office Visit [facility] [address] [place] [address] Richard Lewis MD [address] [place] [phone] documented as of this encounter Visit Diagnoses Not on filedocumented in this encounter Additional Health Concerns Assessment Noted Time PHQ-9 Depression Total Score: 0 01/27/20 24 8:26 AM EDT documented as of this encounter Care Teams General Accounting Clerk Relationship Specialty Start Date End Date No, Pcp (Do Not Change Name) PCP - General 07/19/24 documented as of this encounter
--- OUTSIDE RECORDS SUMMARY | 2025-03-29 18:30 | XMS_ITS | Encounter Summary ---
Author Organization [facility] and [facility] Address [address] [place] [phone] Care Team Providers Care Bonding Equipment Operator Name Role Phone No, Pcp (Do Not Change Name) Primary Care Provid er Unavailable Encounter Details Date Type Department Care Team (Late st Contact Info) Description 01/20/2025 Scanned Document INTERFACE DEFAULT [address] [place] [address] [phone] System, Provider Not In Social History Tobacco [...] EST Office Visit [facility] [address] [place] [address] Richard Lewis MD [address] [place] [phone] documented as of this encounter Visit Diagnoses Not on filedocumented in this encounter Additional Health Concerns Assessment Noted Time PHQ-9 Depression Total Score: 0 01/27/20 24 8:26 AM EDT documented as of this encounter Care Teams Bonding Equipment Operator Relationship Specialty Start Date End Date No, Pcp (Do Not Change Name) PCP - General 07/19/24 documented as of this encounter
--- OUTSIDE RECORDS SUMMARY | 2025-03-29 18:30 | XMS_ITS | Encounter Summary ---
Author Organization [facility] and [facility] Address [address] [place] [phone] Care Team Providers Care Candy Attendant Name Role Phone No, Pcp (Do Not Change Name) Primary Care Provid er Unavailable Encounter Details Date Type Department Care Team (Late st Contact Info) Description 09/24/2024 Documentation [facility] [address] [place] [address] [phone] Richard Lewis MD [address] [place] [address] Social History Tobacco Use Types [...] Visit [facility] [address] [facility] 2nd Floor [place], [place] [phone] Richard Lewis MD [address] [place] [phone] documented as of this encounter Visit Diagnoses Not on filedocumented in this encounter Additional Health Concerns Assessment Noted Time PHQ-9 Depression Total Score: 0 01/27/20 8:26 AM EDT documented as of this encounter Care Teams Candy Attendant Relationship Specialty Start Date End Date No, Pcp (Do Not Change Name) PCP - General 07/19/24 documented as of this encounter
--- OUTSIDE RECORDS SUMMARY | 2025-03-29 18:30 | XMS_ITS | Clinical Summary ---
Author Organization [facility] Address [address] [place] [phone] Phone Care Team Providers Care Saddle And Side Wire Stitcher Name Role Phone Gustavo Suarez DO Primary Care Provider Ellie Kan PA Unavailable [phone] Allergies Active Allergy Reactions Criticality Noted Date [...] that she has discussed this with her material control clerk who thought that it was reasonable to continue with the estradiol patch. She is on an anticoagulant which would decrease the risk of stroke associated with the VTE. I will see if I can contact her material control clerk for some further guidance and also do [...] formulations. However, I do believe that her material control clerk should weigh in on this as well. Therefore, I will send a copy of today's note. Her current dose of estradiol is 0 0.075 mg per 24 hours changed weekly. I cannot find in the chart where her previous dose was but according to the notes it was decreased to this current dose. If her material control clerk is in agreement, she will call [...] (#1) 2024 03/12/2016 COVID-19 VACCINE (3 - 2 6 season) 2025 09/14/2021, 12/13/2020 OSTEOPOROSIS SCREENING [...] A & B [employer] PPO MEDICARE REPLACEMENT [address] [place], [place] [address]NA TPA MEDICARE PART A & B Member Subscriber Plan / Payer (Ef fective 1993-Present) Name:Bertin Ying A Member ID:[id number] Relation to Subscriber:Self Name:Bertin Ying A Subscriber ID:[id number] Payer ID:[id number] Group ID:Not on file Type:Medicare Address: [facility] [employer] [facility] [address] [place] [address] AETNA O MEDICARE [place] [address] MEDICARE PART A & B [employer] [place] [address] MEDICARE PART A & B Member Subscriber Plan / Payer (Ef fective 1993-Present) Name:Ying Denton Member ID:[id number] Relation to Subscriber:Self Name:Ying Denton Subscriber ID:[id number] Payer ID:[id number] Group ID:Not on file Type:Medicare Address: [facility] [employer] [facility] [address] [place] [phone] [facility] MEDIC[facility] REPLACEMENT MEDICARE PART A & B [facility] MEDICARE REPLACEMENT [address] [place], [place] [address]NA [place] [address] MEDICARE PART A & B [facility] MEDICARE REPLACEMENT Elie [place] MEDICARE PART A & B AETNA PPO MEDICARE REPLACEMENT CIGNA TPA MEDICARE PART A & B AETNA PPO MEDICARE [place] [address] MEDICARE PART A & B AET[employer] PPO MEDICARE REPLACEMENT CIGNA TPA Care Teams Saddle And Side Wire Stitcher Relationship Specialty Start Date End Date Gustavo Suarez DO [address] [place] [address] PCP - General Internal Medicine 02/16/18 Ellie Kan PA [address] [place] [address] Physician Pet Adoption Counselor 07/14/24 Additional Source Comments The information contained in this document represents components of the legal health record. It is not the complete legal health record.[facility]
--- OUTSIDE RECORDS SUMMARY | 2025-03-29 18:30 | XMS_ITS | Encounter Summary ---
Author Organization [facility] and [facility] Address [address] [place] [phone] Care Team Providers Care Five Piece Expansion Maker Hand Name Role Phone No, Pcp (Do Not Change Name) Primary Care Provid er Unavailable Encounter Details Date Type Department Care Team (Late st Contact Info) Description 03/08/2024 Scanned Document INTERFACE DEFAULT [address] [place] [address] System, Provider Not In Social History [...] EST Office Visit [facility] [address] [place] [address] Richard Lewis MD [address] [place] [address] documented as of this encounter Procedures Procedure [...] documented as of this encounter Care Teams Five Piece Expansion Maker Hand Relationship Specialty Start Date End Date No, Pcp (Do Not Change Name) PCP - General 07/19/24 documented as of this encounter
--- OUTSIDE RECORDS SUMMARY | 2025-03-29 18:30 | XMS_ITS | Encounter Summary ---
Author Organization [facility] and [facility] Address [address] [place] [phone] Care Team Providers Care Metal Stud Framer Name Role Phone No, Pcp (Do Not Change Name) Primary Care Provid er Unavailable Encounter Details Date Type Department Care Team (Late st Contact Info) Description 10/07/2024 Scanned Document INTERFACE DEFAULT [address] [place] [address] [phone] System, Provider Not In Social History Tobacco [...] EST Office Visit [facility] [address] [place] [address] Richard Lewis MD [address] [place] [address] documented as of this encounter Visit Diagnoses Not on filedocumented in this encounter Additional Health Concerns Assessment Noted Time PHQ-9 Depression Total Score: 0 01/27/20 24 8:26 AM EDT documented as of this encounter Care Teams Metal Stud Framer Relationship Specialty Start Date End Date No, Pcp (Do Not Change Name) PCP - General 07/19/24 documented as of this encounter
--- OUTSIDE RECORDS SUMMARY | 2025-03-29 18:30 | XMS_ITS | Encounter Summary ---
Author Organization [facility] Address [address] [place] [phone] Phone Care Team Providers Care Ironer Sock Name Role Phone Gustavo Suarez DO Primary Care Provider Ellie Kan PA Unavailable [phone] Reason for Visit * Reason Onset Date Comments Rx to different pharmacy 03/08/2020 Encounter Details Date Type Department Care Team (Late st Contact Info) Description 03/08/2020 Telephone [facility] [address] [place] [address] Gustavo Noe MD [address] [place] [address] Rx to different pharmacy Social History Tobacco [...] for patch [facility]/[place] - documented in this encounter Plan of Treatment Not on file documented as of this encounter Visit Diagnoses Diagnosis Menopausal syndrome- Primary Symptomatic menopausal or female climacteric states documented in this encounter Care Teams Ironer Sock Relationship Specialty Start Date End Date Gustavo Suarez DO [address] [place] [address] PCP - General Internal Medicine 02/16/18 Ellie Kan PA [address] [place] [address] Physician Marketing And Promotions Manager 07/14/24 documented as of this encounter Additional Source Comments The information contained in this document represents components of the legal health record. It is not the complete legal health record.[facility]
--- OUTSIDE RECORDS SUMMARY | 2025-03-29 18:30 | XMS_ITS | Encounter Summary ---
Author Organization [facility] and [facility] Address [address] [place] [phone] Care Team Providers Care Muffle Operator Name Role Phone No, Pcp (Do Not Change Name) Primary Care Provid er Unavailable Encounter Details Date Type Department Care Team (Late st Contact Info) Description 03/26/2024 Scanned Document INTERFACE DEFAULT [address] [place] [address] System, Provider Not In Social History [...] EST Office Visit [facility] [address] [place] [address] Richard Lewis MD [address] [place] [address] documented as of this encounter Visit Diagnoses Not on filedocumented in this encounter Additional Health Concerns Assessment Noted Time PHQ-9 Depression Total Score: 0 01/27/20 8:26 AM EDT documented as of this encounter Care Teams Muffle Operator Relationship Specialty Start Date End Date No, Pcp (Do Not Change Name) PCP - General 07/19/24 documented as of this encounter
--- OUTSIDE RECORDS SUMMARY | 2025-03-29 18:30 | XMS_ITS | Encounter Summary ---
Author Organization [facility] and [facility] Address [address] [place] [phone] Care Team Providers Care Vehicle Service Agent Name Role Phone No, Pcp (Do Not Change Name) Primary Care Provid er Unavailable Reason for Visit * Reason Onset Date Comments Triage 10/10/2023 Encounter Details Date Type Department Care Team (Late st Contact Info) Description 10/10/2023 Telephone [facility] [address] [place] [address] Richard Lewis MD [address] [place] [phone] Triage Social History Tobacco Use Types Packs/Day [...] being worked up for MS at the [facility] and was scheduled to start on Ocrevus in 10/2021. She had hip replacement surgery in Feb 2022 at [facility] and four days s/p surgery, she experienced full body paresis from her neck to her feet. 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 She needed to go to rehab after this event as she required a wheelchair. She occasionally experiences blurry vision but follows regularly with her medical social consultant. * Telephone Encounter - Katarina Handy - 10/10/2023 11:04 AM EDT Copied from [facility] #[id number]. Topic: General Message - [facility] >> Oct 10, 2023 11:00 AM Katarina Shukla wrote: [facility] MESSAGE Time of [...] urgently? no Best telephone number for callback: [phone] Best time to return call: any Permission to leave message: yes Katarina Handy [facility] Professor Of Biology documented in this encounter Plan of Treatment Upcoming Encounters Date Type Department Care Team (Late st Contact Info) Description 05/31/2025 3:30 PM EST Office Visit [facility] [address] [address] Richard Lewis MD [address] [place] [address] documented as of this encounter Visit Diagnoses Not on filedocumented in this encounter Additional Health Concerns Assessment Noted Time PHQ-9 Depression Total Score: 0 09/24/19 24 9:25 AM EDT documented as of this encounter Care Teams Vehicle Service Agent Relationship Specialty Start Date End Date No, Pcp (Do Not Change Name) PCP - General 07/19/24 documented as of this encounter
--- OUTSIDE RECORDS SUMMARY | 2025-03-29 18:30 | XMS_ITS | Encounter Summary ---
Author Organization [facility] and [facility] Address [address] [place] [phone] Care Team Providers Care Mutual Funds Agent Name Role Phone No, Pcp (Do Not Change Name) Primary Care Provid er Unavailable Encounter Details Date Type Department Care Team (Late st Contact Info) Description 10/20/2024 Scanned Document INTERFACE DEFAULT [address] [place] [address] [phone] System, Provider Not In Social History Tobacco [...] EST Office Visit [facility] [address] [place] [address] Richard Lewis MD [address] [place] [phone] documented as of this encounter Visit Diagnoses Not on filedocumented in this encounter Additional Health Concerns Assessment Noted Time PHQ-9 Depression Total Score: 0 01/27/20 24 8:26 AM EDT documented as of this encounter Care Teams Mutual Funds Agent Relationship Specialty Start Date End Date No, Pcp (Do Not Change Name) PCP - General 07/19/24 documented as of this encounter
--- OUTSIDE RECORDS SUMMARY | 2025-03-29 18:30 | XMS_ITS | Clinical Summary ---
Author Organization [facility] Address [address] [place] [address] Care Team Providers Care Director Of Media Name Role Phone Gustavo Suarez Primary Care [...] Screening 05/05/2024 Depression Screening and Follow-Up 05/05/2024 Fall Risk Screening 05/05/2024 Health Care Proxy Review 05/05/2024 Social Drivers of Health Annual Screening 05/05/2024 Influenza Vaccine (#1) 2024 03/12/2016 COVID-19 Vaccine (3 - 2024-2 6 season) 2025 09/14/2021, 12/13/2020 RSV Vaccine (60+ years old a nd patients) (1 - 1-dose 75+ series) 01/09/2035 Hepatitis B Vaccines Aged Out No long er eligible based on patient's age to complete this topic Insurance [facility] AETNA [facility] * Guarantor: DANIELLE DENTON Account Type Relation to Patient Date of Phone Billing Address Personal/Family 1960 Care Teams Director Of Media Relationship Specialty Start Date End Date Gustavo Suarez [address] [place] [address] PCP - General Internal Medicine 11/13/22
== END 2025-03-29 15:25 | disposition home or self-care (01) ==
LOC: HO.HPSW 14:43
PROVIDERS: PCP Internal Medicine; Visit Provider Nurse Practitioner Family
DX: G25.82 Stiff-man syndrome (principal); R06.00 Dyspnea, unspecified
CPT/HCPCS: 99214; G2211

== ENCOUNTER → 2025-03-29 14:42 | Outpatient (BNVA) | payer OTHER, MEDICARE, SELFPAY | PROVIDERS: PCP Internal Medicine; Visit Provider Nurse Practitioner Family | DX: G25.82 Stiff-man syndrome (principal); R06.00 Dyspnea, unspecified | CPT/HCPCS: 99212 ==

== ENCOUNTER 2025-04-21 10:24 | Outpatient (AMB) | payer OTHER, MEDICARE, SELFPAY ==
--- NOTE | 2025-04-21 10:36 | MHC.PC.OV ---
Vital Signs 04/21/25 10:37 Height 5 ft 0.25 in Weight 133 lb BMI 25.8 BP 129/59 L Blood Pressure Location Lt brachial Position Sitting Respiration 14 Pulse 80 Pulse Source Pulse Oximeter Temp 97.6 F Temp Source Temporal Artery Scan Pulse Oximetry (%) 98 Oxygen Delivery Method Room Air Intake Visit Reasons: 3 month fu Instrument Installer Required: No Accompanied by: Self / Same As Patient Allergies Beta-Blockers (Beta-Adrenergic Bloc Allergy (Mild, Verified 04/21/25 12:06) blood pressure drop house dust Allergy (Mild, Verified 04/21/25 12:06) Anaphylaxis penicillin G (Penicillin G) Allergy (Mild, Verified 04/21/25 12:06) RASH penicillin V Allergy (Unknown, Verified 04/21/25 12:06) Abdominal Pain adhesive Allergy (Verified 04/21/25 12:06) Blister mold Allergy (Verified 04/21/25 12:06) Headache Ourhxlz-[id number]-EdM Reductase Inhibitor Allergy (Verified 04/21/25 12:06) Weakness codeine (Codeine) Adverse Reaction (Mild, Verified 04/21/25 12:06) SEVERE ABDOMINAL PAIN Medication List - Last Reconciled 04/21/25 by Ellie Kan PA-C apixaban (Eliquis) 5 mg PO BID 90 days baclofen 20 mg PO Q4H 90 days diazepam (Valtoco) mg intranasal diazepam 10 mg PO BID PRN diazepam (Valium) 5 mg PO BID PRN dicyclomine 10 mg PO QID epinephrine 0.3 mg (0.3 mL) IM Q10M PRN ergocalciferol (vitamin D2) 1,250 mcg PO Q2W 90 days estradiol 1 patch transdermal WE@0900 gabapentin 1,200 mg (2 x 600 mg) PO BEDTIME 90 days immune globul G-gly-IgA avg 46 20 gram/200 mL (10 %) (Gamunex-C) mL IV immune globul G-gly-IgA avg 46 5 gram/50 mL (10 %) (Gamunex-C) mL IV lamotrigine ER 400 mg PO DAILY miscellaneous medical supply Bed Assist Rail morphine 15 mg PO Q12H PRN morphine 15 mg PO Q12H PRN omeprazole 20 mg PO BID 90 days [Portable Mobility Bed rail As directed] ranolazine ER 500 mg PO BID [rollator As directed] Tobacco use date assessed: 01/20/25 Dental Screening Dental Screen Date: 11/09/24 HPI HPI Comments History of Present Illness Details History of Present Illness The patient is a 65 year old female presenting for an annual physical exam and to discuss concerns of unstable blood pressure and fatigue. She reports her blood pressure has been fluctuating, noting it has been going down but also had a reading as high as 170 for the systolic number and as low as 80/55. The patient is not on any medications for her blood pressure. She reports feeling extremely tired and is sleeping a lot, which she attributes in part to severe muscle spasms. Her last cholesterol panel in July of the previous year showed a total cholesterol of 247 mg/dL and an LDL of 147 mg/dL, which has been consistently high. Her HDL was 76 mg/dL and triglycerides were 120 mg/dL. Her B12, vitamin D, and thyroid levels were normal at that time. She has a history of colon polyps and is supposed to have a colonoscopy every five years, with the last one being in 2020. The patient reports ongoing difficulties with her bowels, experiencing constipation for which a prescription laxative causes diarrhea and accidents, which she believes may be due to an impaction. She also reports having passed out in the middle of the night a few weeks ago. 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 She also has a history of a dangerously low TSH and goiters, for which she follows with an community outreach specialist. She had a mammogram in August. Social History - The patient lives at home and receives IVIG therapy at home for Stiff-Person syndrome. - She has a golf sales manager to assist with medical services. - She reports needing assistance with medication management. - The patient has [employer] insurance. - She attends rehabilitation physical therapy where she receives muscle release and dry needling. [facility] Medical History (Updated 04/21/25 @ 12:09 by Ellie Kan PA-C) Medical services in home not available History of colonic polyps Thyroid disorder Hyperlipidemia Fluctuating blood pressure Annual physical exam General medical exam Multiple thyroid nodules Hypertension Urinary urgency Urinary, incontinence, stress female Muscle weakness Blurry vision Intestinal cramps Bladder retention Carpal tunnel syndrome Right hand pain Overweight (BMI 25.0-29.9) Intermittent palpitations Neurogenic bladder History of mammogram (~2022) Ataxia Coronary artery spasm Coronary artery anomaly Hair loss Hemorrhoids Diverticulosis Tubular adenoma Eczema Fibrocystic breast disease Herpes simplex Hypersomnia Witnessed apneic spells Arthritis Difficulty swallowing Weakness On anticoagulant therapy Lumbar spondylosis Spinal stenosis in cervical region Restless legs syndrome (RLS) Anemia Fatigue Cervical spondylosis Anxiety Bipolar disease, manic Occasional tremors Obstructive sleep apnea Insomnia GERD (gastroesophageal reflux disease) Cardiac microvascular disease TIA (transient ischemic attack) Atrial fibrillation Cardiomyopathy Surgical History H/O cervical discectomy History of partial hysterectomy History of tonsillectomy Hx of hand surgery History of radiofrequency ablation procedure for cardiac arrhythmia History of esophagogastroduodenoscopy (EGD) H/O colonoscopy (~10/05/20) H/O radiofrequency ablation (RFA) of nerve of lumbar spine Hx of cervical spine surgery Hx of shoulder surgery H/O: knee surgery Hx of cholecystectomy History of carpal tunnel release Hx of appendectomy Family History Father Dementia Cancer Mother Cancer COPD (chronic obstructive pulmonary disease) Multiple sclerosis Daughter Myasthenia Social History Household Members: Significant Other Housing: House Are you a primary career law clerk to a significant other at home: No Do you presently have visiting nurse 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, 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 1. Little interest or pleasure in doing things: nearly every day 2. Feeling down, depressed, or hopeless: more than half the days 3. Trouble falling or staying asleep, or sleeping too much: not at all 4. Feeling tired or having little energy: nearly every day 5. Poor appetite or overeating: nearly every day 6. Feeling bad about yourself - or that you are a failure or have let yourself or your family down: not at all 7. Trouble concentrating on things, such as reading the newspaper or watching television: nearly every day 8. Moving or speaking so slowly that other people could have noticed. Or the opposite - being so fidgety or restless that you have been moving around a lot more than usual: nearly every day 9. Thoughts that you would be better off or of hurting yourself in some way: several days Total score: 18 Depression Screening Interpretation: Positive Depression Screening Follow-up: Existing condition and In treatment Depression Screening Done: Yes 75792 - PHQ-9 Billing: Yes Source: Developed by Drs. Gustavo Russell, Raquel Ramírez, Crispin Null and colleagues, with an educational edilberto from [employer]. Thrive Questionnaire Date Thrive assessed: 12/23/24 I am a: Patient What is your living situation today?: I have a steady place to live Within the past 12 months, did the food you bought not last and you didn't have the money to get more?: Never true Within the past 12 months, did you worry whether your food would run out before you got money to buy more?: Never true Do you have trouble paying for medicines?: No Do you have trouble getting transportation to medical appointments?: No Do you have trouble paying your heating and electricity bill?: No Do you have trouble taking care of your child, family member or friend?: No Do you have trouble with day-to-day activities such as bathing, preparing meals, shopping, managing finances, etc.?: No Are you currently unemployed and looking for a job?: No Are you interested in more education?: No Please select the resources that you would like help with: None THRIVE Score: 0 AUDIT C Alcohol Use Questionnaire (AUDIT-C) 1. How often do you have a drink containing alcohol?: Never 3. How often do you have six or more drinks on one occasion?: Never Total Score: 0 Score Reviewed/Action Taken: Yes CARYN-7 AMB Questionnaire CARYN-7 Date CARYN - 7 assessed: 12/23/24 Feeling nervous, anxious, or on edge: 2 = More than half the days Not being able to stop or control worryin = Several days Worrying too much about different things: 2 = More than half the days Trouble relaxin = Several days Being so restless that it is hard to sit still: 0 = Not at all Becoming easily annoyed or irritable: 1 = Several days Feeling afraid as if something awful might happen: 1 = Several days Total CARYN-7 score (0-4 normal; 5-9 mild; 10-14 moderate; 15-21 severe): 8 Source: Developed by Drs. Gustavo Russell, Raquel Ramírez, Crispin Null and colleagues, with an educational edilberto from [employer]. CARYN-7 Assessment Billing CARYN-7 Assessment Tool: CARYN-7 Assessment 52842 Review of Systems Narrative Review of Systems - General: Reports severe fatigue and sleeping a lot. - Neurological: Reports a syncopal episode a few weeks ago. - Cardiovascular: Reports fluctuating blood pressure, with both hypertensive and hypotensive readings. - Gastrointestinal: Reports alternating constipation and diarrhea, with episodes of fecal incontinence. - Abdominal: Reports intermittent sharp pains in her abdomen. - Musculoskeletal: Reports severe, debilitating muscle spasms. - Integumentary: Reports brittle nails and hair loss. - Eyes: Reports trouble with one eye. - Dental: Reports a lost filling; she has upper dentures. Const All systems reviewed & are unremarkable except as noted in HPI and below Physical exam (Primary Care) Vital Signs: Last Vital Signs Temp 97.6 F 04/21/25 10:37 Pulse 80 04/21/25 10:37 Resp 14 04/21/25 10:37 BP 129/59 L 04/21/25 10:37 Pulse Ox 98 04/21/25 10:37 Oxygen Delivery Method Room Air 04/21/25 10:37 Care Plan Goal for BP management: <140/90 at Goal BMI result Body Mass Index 25.8 BMI Assessment/Plan discussion: High BMI High, discussed plan: lifestyle, weight reduction, dietary, physical activity, alcohol moderation and other Tobacco/Smoking Status: Tobacco use Status Tobacco use date assessed 01/20/25 04/21/25 10:38 Patient Tobacco Use Status Former Tobacco user 04/21/25 10:38 PHQ-9: PHQ-9 Score PHQ-9: Total score 18 04/21/25 11:03 Depression Screening Interpretation: Positive Depression Screening Follow-up: Existing condition and In treatment Thrive Assessment: Date of Thrive Assessment Date Thrive assessed 12/23/24 04/21/25 10:38 Narrative Physical Exam Appearance: Alert. Oriented X3. No acute distress. Head: Normal external exam. Normocephalic. Atraumatic. Eyes: Pupils are equal, round, and reactive to light. Extraocular movements intact. Conjunctiva and sclera normal. Eyelids normal. Patient reports trouble with one eye and is due for an tailings man visit. Ears: External auditory canal normal. Tympanic membranes normal. Ears are pretty clean. Throat: Pharynx normal. Uvula midline. Moist mucous membranes. Neck: Normal inspection. Neck supple. Full range of motion. No adenopathy. Thyroid Normal. No meningeal signs. No neck mass noted. No pain on palpation of the thyroid. Cardiovascular: Normal heart rate and rhythm. Heart sound normal. No murmurs noted. Pulses normal throughout. Blood pressure reported as unstable, with a recent reading of 87/55 at home. Respiratory: No respiratory distress. Painless inspiration. Breath sounds normal. No wheezes/rales/rhonchi noted. Chest nontender. No accessory muscle usage noted or decreased air movement noted. Abdomen: Soft and nontender. Bowel sounds normal in all 4 quadrants. No distention noted. No organomegaly noted. No visible injury noted. Patient reports sharp pains in the abdomen, but no pain upon palpation during the exam. Back: No costovertebral angle tenderness. Full range of motion noted. Skin: Skin warm and dry. Normal skin color. Normal skin turgor. No rashes/lesions/lacerations noted. Patient reports hair loss and brittle nails, advised to take multivitamin with folic acid and biotin. Extremities: No lower extremity edema. Extremities exhibit normal range of motion. Neuro: Oriented X 3. No motor deficit. No sensory deficit. Reflexes normal. Patient reports history of passing out and muscle spasms. Although has a normal neuro exam with a normal steady gait no focal deficits are noted. Results Reviewed Results Reviewed: Results - Lipid Panel (July): Total cholesterol 247 mg/dL, LDL 147 mg/dL, HDL 76 mg/dL, triglycerides 120 mg/dL. - Labs (July): B12, Vitamin D, and thyroid function were normal. - CBC (March): Completed, results not discussed. - Mammogram (August 2022): Completed. - Colonoscopy (2020): Showed polyps which were removed. Coding Level of Care Code Est Pt Prev Care >65y(13896) Add On Preventative Visit Only Diagnoses Annual physical exam Z00.00 Fluctuating blood pressure I99.8 Hyperlipidemia E78.5 Thyroid disorder E07.9 History of colonic polyps Z86.0100 Medical services in home not available Z75.0 Additional Codes CARYN-7 Assessment Billing - CARYN-7 Assessment Tool: CARYN-7 Assessment 39554 ([id number]) PHQ-9 - 64904 - PHQ-9 Billing: Yes ([id number]) Time Spent (min) 65 Assessment & Plan Assessment & Plan (1) Annual physical exam: Code(s): Z00.00 - Encounter for general adult medical examination without abnormal findings Category: Medical Plan: A full panel of fasting blood work was ordered, including a lipid panel, CMP, CBC, and thyroid studies (TSH, T3, T4). The patient was advised she can complete the labs at any time before her next follow-up in July. She has a mammogram on record from August. A recommendation was made to take a multivitamin with folic acid and biotin for hair and nail health. A follow-up visit is scheduled in three months. (2) Fluctuating blood pressure: Code(s): I99.8 - Other disorder of circulatory system Category: Medical Plan: The patient's blood pressure fluctuations are thought to be related to her hydration status, as she is not on any antihypertensive medications. Encouraged to increase fluid intake. She plans to follow up with her co founder, Dr. Guido, in May. Ordered blood work will assess kidney function. (3) Hyperlipidemia: Code(s): E78.5 - Hyperlipidemia, unspecified Category: Medical Plan: The patient has a history of consistently high cholesterol. A fasting lipid panel has been ordered to re-evaluate her levels. (4) Thyroid disorder: Code(s): E07.9 - Disorder of thyroid, unspecified Category: Medical Plan: To monitor her history of a dangerously low TSH and goiters, a full thyroid panel including TSH, T3, and T4 was ordered. The patient will continue to follow up with her community outreach specialist. (5) History of colonic polyps: Code(s): Z86.0100 - Personal history of colon polyps, unspecified Category: Medical Plan: The patient is scheduled for a follow-up colonoscopy in the fall due to her history of polyps, which is consistent with the recommended five-year interval. (6) Medical services in home not available: Code(s): Z75.0 - Medical services not available in home Category: Medical Plan: The patient expressed confusion regarding VNA services and a need for assistance with medication management. Our forensic social worker will be tasked with contacting the patient's golf sales manager to clarify needs and coordinate appropriate home services. The patient will be given a medical release form to sign for her specialist at [facility] to ensure continuity of care. Plan Plan Patient was informed and verbally consented to the use of an ambient scribe for clinic note documentation during this visit. 1. Annual Physical Examination A full panel of fasting blood work was ordered, including a lipid panel, CMP, CBC, and thyroid studies (TSH, T3, T4). The patient was advised she can complete the labs at any time before her next follow-up in July. She has a mammogram on record from August. A recommendation was made to take a multivitamin with folic acid and biotin for hair and nail health. A follow-up visit is scheduled in three months. 2. Unstable Blood Pressure The patient's blood pressure fluctuations are thought to be related to her hydration status, as she is not on any antihypertensive medications. Encouraged to increase fluid intake. She plans to follow up with her co founder, Dr. Guido, in May. Ordered blood work will assess kidney function. 3. Hyperlipidemia The patient has a history of consistently high cholesterol. A fasting lipid panel has been ordered to re-evaluate her levels. 4. Thyroid Disorder To monitor her history of a dangerously low TSH and goiters, a full thyroid panel including TSH, T3, and T4 was ordered. The patient will continue to follow up with her community outreach specialist. 5. History Of Colon Polyps The patient is scheduled for a follow-up colonoscopy in the fall due to her history of polyps, which is consistent with the recommended five-year interval. 6. Need For Care Coordination The patient expressed confusion regarding VNA services and a need for assistance with medication management. Our forensic social worker will be tasked with contacting the patient's golf sales manager to clarify needs and coordinate appropriate home services. The patient will be given a medical release form to sign for her specialist at [facility] to ensure continuity of care. Discussion Notes I informed the patient that this visit will serve as her annual physical for the year. I have ordered a comprehensive set of fasting labs, including a lipid panel, CBC, CMP, and a full thyroid panel, and advised her to have them drawn anytime before July. We discussed her fluctuating blood pressure, and I explained that the low readings are likely related to her hydration status, as she is not on any antihypertensive medication. I encouraged her to increase her fluid intake. We also addressed her need for assistance with medication management and the confusion surrounding VNA services. I have sent a message to my forensic social worker to contact the patient's golf sales manager to help coordinate the appropriate services. I also requested she sign a medical release form for her specialist at [facility] to facilitate the sharing of medical records. A follow-up appointment was scheduled in three months. Orders: Orders Comprehensive [place]. Panel Fast Today Z00.00 - Encounter for general adult medical examination without abnormal findings Microalbumin, Random (w Creat) Today Z00.00 - Encounter for general adult medical examination without abnormal findings Vitamin B12 and Folate Today Z00.00 - Encounter for general adult medical examination without abnormal findings UA CC w/rflx Micro + Cult Today Z00.00 - Encounter for general adult medical examination without abnormal findings Hemoglobin A1c Today Z00.00 - Encounter for general adult medical examination without abnormal findings Lipid Panel Today Z00.00 - Encounter for general adult medical examination without abnormal findings Ferritin Today D64.9 - Anemia, unspecified C Reactive Protein Today Z00.00 - Encounter for general adult medical examination without abnormal findings Complete Blood Count Auto Diff Today Z00.00 - Encounter for general adult medical examination without abnormal findings Erythrocyte Sedimentation Rate Today Z00.00 - Encounter for general adult medical examination without abnormal findings Magnesium Today Z00.00 - Encounter for general adult medical examination without abnormal findings Vitamin D 25-OH Total Today Z00.00 - Encounter for general adult medical examination without abnormal findings IRON PROFILE Today D64.9 - Anemia, unspecified Patient Instructions: Patient Instructions - Please go to the lab for fasting blood work. - You must not eat or drink anything except water for at least 8 hours before the test. - Try to drink more fluids, like water, throughout the day to help with your blood pressure. - Our office forensic social worker will contact your golf sales manager to help get a nurse to come to your home and help with your medications. - Keep your appointment with the kidney doctor (Dr. Guido) in May. - Move forward with your plan to have a colonoscopy in the fall. - Please sign the medical release form for your doctor at [facility] so we can get his reports. - Schedule a follow-up appointment with our office in three months.
[2025-04-21 10:37] VITALS: BP 129/59; PULSE 80; RESP 14; TEMP 36.4; O2SAT 98; BMI 25.8
--- OUTSIDE RECORDS SUMMARY | 2025-04-21 12:55 | XMS_ITS | Clinical Summary ---
Author Organization [facility] Prior to 10/02/24 Address [address] [place] [address] Care Team Providers Care Multiple Drum Sander Helper Name Role Phone Gustavo Suarez DO Primary Care Provider [phone] Allergies Active Allergy Reactions Criticality Noted Date [...] 5 12/01/2023 Active ergocalciferol (VITAMIN D2) capsule 79425 units Take 1 capsule (50,000 Units total) [...] age to complete this topic Care Teams Multiple Drum Sander Helper Relationship Specialty Start Date End Date Gustavo Suarez DO [address] [place] [phone] PCP - General Internal Medicine 06/23/18
--- OUTSIDE RECORDS SUMMARY | 2025-04-21 12:55 | XMS_ITS | Encounter Summary ---
Author Organization [facility] Address [address] [place] [id number] Care Team Providers Care Earth Mover Name Role Phone No, Pcp (Do Not Change Name) Primary Care Provid er Unavailable Encounter Details Date Type Department Care Team (Late st Contact Info) Description 10/20/2024 Scanned Document INTERFACE DEFAULT [address] [place] [address] [phone] System, Provider Not In Social History Tobacco [...] EST Office Visit [facility] [address] [place] [phone] Richard Lewis MD [address] [place] [phone] documented as of this encounter Visit Diagnoses Not on filedocumented in this encounter Additional Health Concerns Assessment Noted Time PHQ-9 Depression Total Score: 0 01/27/20 24 8:26 AM EDT documented as of this encounter Care Teams Earth Mover Relationship Specialty Start Date End Date No, Pcp (Do Not Change Name) PCP - General 07/19/24 documented as of this encounter
--- OUTSIDE RECORDS SUMMARY | 2025-04-21 12:55 | XMS_ITS | Clinical Summary ---
Author Organization [facility] Address [address] [facility] [address] [place] [address] Phone Care Team Providers Care Prepress Specialist Name Role Phone Daniela Gustavo Denise BOYD Primary Care Provider [phone] Allergies Active Allergy Reactions Criticality Noted Date [...] formulations. However, I do believe that her fine arts instructor should weigh in on this as well. Therefore, I will send a copy of today's note. Her current dose of estradiol is 0 0.075 mg per 24 hours changed weekly. I cannot find in the chart where her previous dose was but according to the notes it was decreased to this current dose. If her fine arts instructor is in agreement, she will call when she needs a refill. Family History Medical History Relation Comments Heart disease Father Cancer Mother Diabetes Sibling Relation Status Comments Father Unknown Mother Unknown Sibling Social History Tobacco Use Types Packs/Day Years Used Date Smoking Tobacco: Former Cigarettes 0 Q uit: 10/09/1992 Smokeless Tobacco: Never Comments:Smoking [...] 03/27/2022 9:23 AM EST Plan of Treatment Upcoming Encounters Date Type Department Care Team (Late st Contact Info) Description 06/01/2025 3:45 PM EST Office Visit [facility] [address] [address] Enrique Guido MD [address] [address] Health Maintenance Due Date Last Done Comments Breast Cancer Screening 1960 Pneumococcal Vaccine: 50+ Ye ars (1 of 2 - PCV) 01/09/1979 Colorectal Cancer Screening: Annual FOBT 01/09/2009 Colorectal Cancer Screening: Colonoscopy 01/09/2009 Colorectal Cancer Screening: Sigmoidoscopy 01/09/2009 Influenza Vaccine (#1) 2025 03/12/2016 Hepatitis B Vaccine Aged Out No longe r eligible based on patient's age to complete this topic Insurance Aetna MCR Adv PPO ([id number]) Aetna MCR Adv PPO ([id number]) Cigna Open Access ([id number]) Care Teams Prepress Specialist Relationship Specialty Start Date End Date Gustavo Suarez DO [address] [place] [address] PCP - General 05/15/20
--- OUTSIDE RECORDS SUMMARY | 2025-04-21 12:55 | XMS_ITS | Data Portability ---
Author Organization [place] [facility] All[facility] Address [address] [place] [address] Assessment No assessment recorded. 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 - [facility] 10:19:25 Gastroeso phageal reflux disease without esophagit is 978374054 Active 2023 GISELA PRUETT MD [address] [facility],[place] [address], [facility] [place], [address] , [facility] - [facility] 10:19:44 Chronic hoarsenes s 85541722527 05 Active 2023 GISELA PRUETT MD [address] [facility],[place] [address], [place], [address] , [facility] - [facility] [place] 10:20:46 Problem Notes None recorded. Procedures Surgical History Date Name Laterality Status Provider Name and Address Organization Details Recorded Time 11/11/2023 FFL_RE completed GISELA PRUETT MD [address] [facility],[place] [address], [place], [address], [facility] - [facility] 11/11/2023 10:26:08 Imaging Results None recorded. Procedure Notes None recorded. Medical Equipment None Reported. Allergies Allergen ID Allergen Name Allergen Category Reaction Reaction Severity Criticality Documentation Date Start Date Code Code System Note Provider Name and Address Organization Details Recorded Time 42926 Product containin g penicilli n (product) medicatio n hives Not available Not available 09/16/2023 50458 8001 SNOMED React ion: skin rashe s, hives ;; Not Available [facility] 00:48:35 21484 codeine medicatio n nausea Not available Not available 09/16/2023 2670 RxNorm React ion: Stoma ch cramp s; Not Available [facility] 00:48:40 93094 acetamino phen / oxycodone medicatio n nausea Not available Not available 09/16/2023 76968 3 RxNorm React ion: nause a;; Not Available [facility] 4 00:48:40 Medications Name Sig [...] 20 mg tablet active Medicatio n ID: [id number] Br and Name: atorvasta tin Send Method: [...] release 24 hr active Medicatio n ID: [id number] Br and Name: isosorbid e mononitra te [...] 300 mg capsule active Medicatio n ID: [id number] and Name: gabapenti n Send Method: E-Prescri [...] 25 mg tablet active Medicatio n ID: [id number] Br and Name: metoprolo l tartrate Send [...] Updated DateTime 11/11/2023 160.02 cm 21.8 kg/m2 66378.86 g Delores Mejía [place] [facility] 11/11/2023 09:58:27 Social History None recorded. [...] Note 6977 GISELA PRUETT MD [facility] [address] [address] 11/11/2023 09:08:06 11/11/2023 10:28:26 Dysphagia 51231910 R13.10 see below Gastroesop hageal reflux disease without esophagitis 223470954 K21.9 continue omeprazole per prescribin g provider Chronic hoarseness 36099 50474 105 R49.0 Her right vocal cord is sluggish. No glottic gap. Likely recovering after ACDF. MBS showed a safe swallow. I suspect her neuromuscu lar disorder may contribute to her dysphagia as well and I recommend she keep f/u with her neurologis ts at [place]. No ENT interventi on needed. No tumors [...] Name 11/19/2024 2 [employer] - BYWATER (PPO) [id number] Kristopher Bertin [id number] Ying Denton 11/19/2024 1 AETNA (MEDICARE REPLACEMENT/ ADVANTAGE - PPO) [id number] Ying A Bertin [id number] Ying Denton 11/19/2024 2 [employer]IG[employer] - CRITICAL ACCESS HOSPITAL BENEFIT PLAN MANAGEMENT (PPO) Ying Denton [id number] Ying Denton Notes Date Note Type Note [...] swallowing. She is being worked up at [place] for a neurologic disorder. She has muscle cramping and she can't use her left arm well. On omeprazole for GERD. Hx of ACDF. She has had some voice trouble since with difficulty projecting. GISELA PRUETT MD [address] [place] [address], [place], [address], [place] [facility] 11/11/2023 10:28:19 OBGyn Episode No OBEpisode recorded.
--- OUTSIDE RECORDS SUMMARY | 2025-04-21 12:55 | XMS_ITS | Continuity of Care Document ---
Author Organization [facility] [employer] [address] [facility] [address] [place] [address] Phone [phone] Care Team Providers Care Field Artillery Operations Specialist Name Role Phone Gustavo Suarez M.D. Care Team Information Recei yadira [phone] Clarence Leiva MD Care Team Information R eceiver [phone] Problems Active Problems Provider Date Multinodular goiter [...] Apply 1 Patch Once A Week Unknown Xvmegvof39nn Tablets Take 1 Tablet By Mouth Twice Daily as Needed For Muscle Spasm Krystina Mendez, SCOOP FILLER Pppvsgfih5up Tablets Take half hs Unknow n Vitamin D (Ergocalciferol)1.25mg (93452 Ut) Capsules Take 1 Capsule By Mouth every other week Unknown Zumttwmefr35qo Capsules DR Take 1 Capsule By Mouth Every Day 30 Minutes Before Breakfast Gustavo Suarez M.D. Hrkvwzicsa126vi Tablets 300mg am, 300mg 2pm, 1200mg 8pm Unknown Ldcxaqb5pb Tablets Take 1 Tablet By Mouth Twice Daily Linda Astudillo MD Lamotrigine EB917kk Tablets ER 24HR Take 2 Tablets By Mouth Every Day Unknown Methylphenidate IPE75lf Tablets Take 1 Tablet By Mouth Three Times Daily prn Unknown Valacyclovir XMR267yr Tablets Unknown Tizanidine HCL2mg Tablets Unknown Dicyclomine YCY21mz Capsules Take 1 Capsule By Mouth Four [...] 77 TSH With Reflex To FT4 12/12/2022 [facility] TSH With Reflex To FT4 0.33 uIU/mL Low (0.4-4. 2) Anti Thyroid Peroxidase AB 12/12/2022 [facility] Anti Thyroid Peroxidase AB <3.0 IU/mL (<5.6) 1 25Oh Vitamin D 12/12/2022 [facility] 25Oh Vitamin D 50.0 NG/ML (20-50) Free T4 12/12/2022 [facility] Free T4 0.90 ng/dL (0.70-1 .80) 1 Antibody measurement represents one parameter in a multicriteria diagnostic process. Correlate results with clinical presentation. This test was performed on the Cequens immunoassay system. Medical Devices Description No Information [...]
--- OUTSIDE RECORDS SUMMARY | 2025-04-21 12:55 | XMS_ITS | Clinical Summary ---
Author Organization [facility] Address [address] [place] [address] Care Team Providers Care Senior Bi Architect Name Role Phone Gustavo Suarez Primary Care [...] patient's age to complete this topic Insurance [facility] AETNA [facility] * Guarantor: DANIELLE DENTON Account Type Relation to Patient Date of Phone Billing Address Personal/Family 1960 Care Teams Senior Bi Architect Relationship Specialty Start Date End Date Gustavo Suarez [address] [place] [address] PCP - General Internal Medicine 11/13/22
--- OUTSIDE RECORDS SUMMARY | 2025-04-21 12:55 | XMS_ITS | Encounter Summary ---
Author Organization [facility] Address [address] [place] [address] Care Team Providers Care Record Searcher Name Role Phone No, Pcp (Do Not Change Name) Primary Care Provid er Unavailable Reason for Visit * Reason Onset Date Comments Other 04/19/2025 Encounter Details Date Type Department Care Team (Late st Contact Info) Description 04/19/2025 Telephone [facility] [address] [place] [address] Richard Lewis MD [address] [place] [phone] Other Social History Tobacco Use Types Packs/Day [...] Telephone Encounter - Peggy Tinoco RN - 04/19/2025 9:23 AM EST Called and spoke with patient. Pt reports her insurance sent her a letter listing the specialty pharmacies she is allowed to use. RN informed patient to call [facility] to discuss with theirteam as they handle these issues and need to know of insurance changes. RN also placed call to Susannah CARMONA from [facility] to make her aware of situation, she is going to have some one reach out to the patient to clarify. * Telephone Encounter - Lianne Palomo PCT - 04/19/2025 9:05 AM EST Patient is requesting a prescription for IVIG to be sent to [facility] specialty pharmacy, [facility] documented in this encounter Plan of Treatment Upcoming Encounters Date Type Department Care Team (Late st Contact Info) Description 05/31/2025 3:30 PM EST Office Visit [facility] [address] [place] [phone] Richard Lewis MD [address] [place] [address] documented as of this encounter Visit Diagnoses Not on filedocumented in this encounter Additional Health Concerns Assessment Noted Time PHQ-9 Depression Total Score: 0 01/27/20 24 8:26 AM EDT documented as of this encounter Care Teams Record Searcher Relationship Specialty Start Date End Date No, Pcp (Do Not Change Name) PCP - General 07/19/24 documented as of this encounter
--- OUTSIDE RECORDS SUMMARY | 2025-04-21 12:55 | XMS_ITS | Encounter Summary ---
Author Organization [facility] Address [address] [place] [address] Care Team Providers Care Car Shifter Name Role Phone No, Pcp (Do Not Change Name) Primary Care Provid er Unavailable Reason for Visit * Reason Onset Date Comments Triage 09/29/2024 ? Medication den ial Encounter Details Date Type Department Care Team (Late st Contact Info) Description 09/29/2024 Telephone [facility] [address] [facility] [address] [place] [address] Richard Lewis MD [address] [place] [address] Triage (? Medication denial ) [...] EST Office Visit [facility] [address] [place] [phone] Richard Lewis MD [address] [place] [address] documented as of this encounter Visit Diagnoses Not on filedocumented in this encounter Additional Health Concerns Assessment Noted Time PHQ-9 Depression Total Score: 0 01/27/20 24 8:26 AM EDT documented as of this encounter Care Teams Car Shifter Relationship Specialty Start Date End Date No, Pcp (Do Not Change Name) PCP - General 07/19/24 documented as of this encounter
--- OUTSIDE RECORDS SUMMARY | 2025-04-21 12:55 | XMS_ITS | Clinical Summary ---
Author Organization [facility] [employer] [facility] Address [address] [place] [address] Phone Care Team Providers Care Well Reactivator Operator Name Role Phone Clarence Leiva MD Primary Care Provider [phone] Allergies Active Allergy Reactions Criticality Noted Date [...] CAD (coronary artery disease) 06/09/2024 Non-ST elevation PR (NSTEMI) 06/09/2024 Dizziness 04/14/2024 Assessment & Plan [...] this time she is working with a leather colorer and will continue to work on dietary [...] Orientation Straight 04/05/2024 2: 12 PM EST Last Filed Vital Signs Vital Sign Reading [...] Screening 1960 Colorectal Cancer Screening: Colonoscopy 1960 Drug Screen 1960 Non-Opioid Controlled Substance Agreement 1960 DTaP,Tdap,and Td Vaccines (1 - Tdap) [...] METHOD 04/05/2024 3:28 PM [facility] Alkaline Phosphatase 65 42 - 121 unit/L LAB CHEMISTRY METHOD 04/05/2024 3:28 PM EST [facility] Total Protein 6.6 6.0 - 8.0 g/dL LAB CHEMISTRY METHOD 04/05/2024 3:28 PM EST [facility] Albumin 3.7 3.2 - 5.0 g/dL LAB CHEMISTRY METHOD 04/05/2024 3:28 PM EST [facility] Total Bilirubin 0.6 0.0 - 1.4 mg/dL LAB CHEMISTRY METHOD 04/05/2024 3:28 PM EST [facility] Blood Venous blood specimen / Unknown Venipuncture / Unknown 04/05/2024 2:46 PM EST 04/05/2024 2:59 PM EST us Enrique Moyer MD LAB BLOOD ORDERABLES Final Result [facility] [address] [place] [address], from Last 3 Months or Most Recently Relevant to Health Maintenance Insurance AETNA MEDICARE ADVANTAGE [facility] Advance Directives Documents on File Type Date Recorded Patient Wash House Supervisor Expl anation Health Care Decision (hx) 02/15/2022 AD SPAULDING DIRECTIVE Health Care Decision (hx) 02/15/2022 AD SPAULDING DIRECTIVE Health Care Decision (hx) 02/15/2022 AD SPAULDING DIRECTIVE Care Teams Well Reactivator Operator Relationship Specialty Start Date End Date Clarence Leiva MD [facility] [address] [place] [address] [address] [place] [address] PCP - General Internal Medicine 08/02/24
--- OUTSIDE RECORDS SUMMARY | 2025-04-21 12:55 | XMS_ITS | Encounter Summary ---
Author Organization [facility] Address [address] [place] [address] Care Team Providers Care Staff Writer Name Role Phone No, Pcp (Do Not Change Name) Primary Care Provid er Unavailable Reason for Visit * Reason Onset Date Comments Triage 10/10/2023 Encounter Details Date Type Department Care Team (Late st Contact Info) Description 10/10/2023 Telephone [facility] [address] [place] [address] Richard Lewis MD [address] [place] [phone] Triage Social History Tobacco Use Types Packs/Day [...] being worked up for [facility] and was scheduled to start on Ocrevus in 10/2021. She had hip replacement surgery in Feb [address] 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 She needed to go to rehab after this event as she required a wheelchair. She occasionally experiences blurry vision but follows regularly with her rug measurer. * Telephone Encounter - Katarina Handy - 10/10/2023 11:04 AM EDT Copied from [facility] #[id number]. Topic: General Message - [facility] >> Oct 10, 2023 11:00 AM Katarina Shukla wrote: [facility] Time of call: 11:00 [...] urgently? no Best telephone number for callback: [phone] Best time to return call: any Permission to leave message: yes Katarina Handy [facility] Physicians Assistant documented in this encounter Plan of Treatment Upcoming Encounters Date Type Department Care Team (Late st Contact Info) Description 05/31/2025 3:30 PM EST Office Visit [facility] [address] [address] Richard Lewis MD [address] [place] [address] documented as of this encounter Visit Diagnoses Not on filedocumented in this encounter Additional Health Concerns Assessment Noted Time PHQ-9 Depression Total Score: 0 09/24/19 24 9:25 AM EDT documented as of this encounter Care Teams Staff Writer Relationship Specialty Start Date End Date No, Pcp (Do Not Change Name) PCP - General 07/19/24 documented as of this encounter
--- OUTSIDE RECORDS SUMMARY | 2025-04-21 12:55 | XMS_ITS | Clinical Summary ---
Author Organization [facility] Address [address] [place] [address] Phone Care Team Providers Care Nuclear Waste Process Operator Name Role Phone Gustavo Suarez DO Primary Care Provider Ellie Kan PA Unavailable [phone] Allergies Active Allergy Reactions Criticality Noted Date [...] that she has discussed this with her financial health counselor who thought that it was reasonable to continue with the estradiol patch. She is on an anticoagulant which would decrease the risk of stroke associated with the VTE. I will see if I can contact her financial health counselor for some further guidance and also [...] formulations. However, I do believe that her financial health counselor should weigh in on this as well. Therefore, I will send a copy of today's note. Her current dose of estradiol is 0 0.075 mg per 24 hours changed weekly. I cannot find in the chart where her previous dose was but according to the notes it was decreased to this current dose. If her financial health counselor is in agreement, she will call [...] A & B AETNA PPO MEDICARE REPLACEMENT [address] [place], [place] [address]NA TPA MEDICARE PART A & B Member Subscriber Plan / Payer (Ef fective 1993-Present) Name:Bertin Ying A Member ID:[id number] Relation to Subscriber:Self Name:Bertin Ying A Subscriber ID:[id number] Payer ID:[id number] Group ID:Not on file Type:Medicare Address: [facility] [employer] ([employer]) [facility] [employer] [facility] [address] [place] [address] AETNA O MEDICARE REPLACEMENT [place] [address] MEDICARE PART A & B AETNA PPO [place] [address] MEDICARE PART A & B Member Subscriber Plan / Payer (Ef fective 1993-Present) Name:Ying Denton Member ID:[id number] Relation to Subscriber:Self Name:Ying Denton Subscriber ID:[id number] Payer ID:[id number] Group ID:Not on file Type:Medicare Address: [facility] [employer] ([employer]) [facility] [employer] [facility] [address] [place] [phone] [facility] RE[facility] MEDICARE PART A & B [facility] MEDIC[facility]PLACEMENT [address] [place], [place] [address]NA [place] [address] MEDICARE PART A & B [facility] MEDICARE REPLACEMENT [place] MEDICARE PART A & B AETNA PPO MEDICARE REPLACEMENT CIGNA TPA MEDICARE PART A & B AETNA PPO MEDICARE [place]PLACEMENT [place] [address] MEDICARE PART A & B Member Subscriber Plan / Payer (Ef fective 1993-Present) Name:Ying Denton Member ID:[id number] Relation to Subscriber:Self Name:Ying Denton Subscriber ID:[id number] Payer ID:[id number] Group ID:Not on file Type:Medicare Address: [facility] [employer] ([employer]) [facility] [employer] [facility] [address] [place] [phone] AETNA PPO MEDICARE REPLACEMENT CIGNA TPA Care Teams Nuclear Waste Process Operator Relationship Specialty Start Date End Date Gustavo Suarez DO [address] [place] [address] PCP - General Internal Medicine 02/16/18 Ellie Kan PA [address] [place] [address] Physician Community Mental Health Worker 07/14/24 Additional Source Comments The information contained in this document represents components of the legal health record. It is not the complete legal health record.[facility]
--- OUTSIDE RECORDS SUMMARY | 2025-04-21 12:55 | XMS_ITS | Clinical Summary ---
Author Organization [address] Address [address] [place] [address] Care Team Providers Care Skein Spooler Name Role Phone No, Pcp (Do Not [...] 05/2021 Penicillins Hives,Other (See Comments),Rash High 07/09/2017 Acuubqw-How-Dbi Reductase Inhibitors Other (See Comments) Medium 07/19/2024 [...] Encounters Date Type Department Care Team Description 04/19/2025 Telephone [facility] [address] [place] [address] Richard Lewis MD Other 03/16/2025 Telephone [facility] [address] [place] [address] Richard Lewis MD Triage 03/08/2025 Telephone [facility] [address] [place] [address] Richard Lewis MD Other 03/02/2025 Telephone [facility] & [facility] [address] [place] [address] Richard Lewis MD Triage 01/28/2025 Telephone [facility] [address] [place] [address] Richard Lewis MD Other 01/21/2025 Refill [facility] [address] [place] [address] Richard Lewis MD Medication Refill 01/20/2025 Scanned Document INTERFACE DEFAULT [address] [place] [address] System, Provider Not In from Last 3 [...] EST Office Visit [facility] [address] [place] [phone] Richard Lewis MD [address] [facility] [place] [phone] Health Maintenance Due Date Last Done Comments [...] age to complete this topic Insurance QIANA [facility] MEDICARE QIANA [facility] MEDICARE [facility] MEDICARE Care Teams Skein Spooler Relationship Specialty Start Date End Date No, Pcp (Do Not Change Name) PCP - General 07/19/24
--- OUTSIDE RECORDS SUMMARY | 2025-04-21 12:55 | XMS_ITS | Encounter Summary ---
Author Organization [facility] and [facility] Address [address] [place] [phone] Care Team Providers Care Durable Medical Equipment Technician Name Role Phone No, Pcp (Do Not Change Name) Primary Care Provid er Unavailable Encounter Details Date Type Department Care Team (Late st Contact Info) Description 10/10/2023 Transcribed Orders CARE CENTER SCHEDULING [address] [place] [address] Referral, Self Social History Tobacco [...] Description 05/31/2025 3:30 PM EST Office Visit [facility] Neuro[facility]Immunology [address] [address] Richard Lewis MD [address] [place] [address] documented as of this encounter Visit Diagnoses Not on filedocumented in this encounter Additional Health Concerns Assessment Noted Time PHQ-9 Depression Total Score: 0 09/24/19 24 9:25 AM EDT documented as of this encounter Care Teams Durable Medical Equipment Technician Relationship Specialty Start Date End Date No, Pcp (Do Not Change Name) PCP - General 07/19/24 documented as of this encounter
--- OUTSIDE RECORDS SUMMARY | 2025-04-21 12:55 | XMS_ITS | Encounter Summary ---
Author Organization [facility] and [facility] Address [address] [place] [phone] Care Team Providers Care Assistant Account Executive Name Role Phone No, Pcp (Do Not Change Name) Primary Care Provid er Unavailable Encounter Details Date Type Department Care Team (Late st Contact Info) Description 03/08/2024 Scanned Document INTERFACE DEFAULT [address] [place] [address] System, Provider Not In Social History [...] EST Office Visit [facility] [address] [place] [address] Richard Lewis MD [address] [place] [address] documented as of this encounter Procedures Procedure [...] documented as of this encounter Care Teams Assistant Account Executive Relationship Specialty Start Date End Date No, Pcp (Do Not Change Name) PCP - General 07/19/24 documented as of this encounter
--- OUTSIDE RECORDS SUMMARY | 2025-04-21 12:55 | XMS_ITS | Encounter Summary ---
Author Organization [facility] and [facility] Address [address] [place] [phone] Care Team Providers Care Overhauler Bus Truck Name Role Phone No, Pcp (Do Not Change Name) Primary Care Provid er Unavailable Encounter Details Date Type Department Care Team (Late st Contact Info) Description 01/20/2025 Scanned Document INTERFACE DEFAULT [address] [place] [phone] System, Provider Not In Social History Tobacco [...] Office Visit [facility] [address] [place] [address] Richard Lewis MD [address] [place] [phone] documented as of this encounter Visit Diagnoses Not on filedocumented in this encounter Additional Health Concerns Assessment Noted Time PHQ-9 Depression Total Score: 0 01/27/20 24 8:26 AM EDT documented as of this encounter Care Teams Overhauler Bus Truck Relationship Specialty Start Date End Date No, Pcp (Do Not Change Name) PCP - General 07/19/24 documented as of this encounter
--- OUTSIDE RECORDS SUMMARY | 2025-04-21 12:55 | XMS_ITS | Encounter Summary ---
Author Organization [facility] and [facility] Address [address] [place] [phone] Care Team Providers Care Modern Greek Studies Professor Name Role Phone No, Pcp (Do Not Change Name) Primary Care Provid er Unavailable Encounter Details Date Type Department Care Team (Late st Contact Info) Description 01/19/2025 Scanned Document INTERFACE DEFAULT [address] [place] [phone] System, Provider Not In Social History Tobacco [...] Office Visit [facility] [address] [place] [address] Richard Lewis MD [address] [place] [phone] documented as of this encounter Visit Diagnoses Not on filedocumented in this encounter Additional Health Concerns Assessment Noted Time PHQ-9 Depression Total Score: 0 01/27/20 24 8:26 AM EDT documented as of this encounter Care Teams Modern Greek Studies Professor Relationship Specialty Start Date End Date No, Pcp (Do Not Change Name) PCP - General 07/19/24 documented as of this encounter
--- OUTSIDE RECORDS SUMMARY | 2025-04-21 12:55 | XMS_ITS | Encounter Summary ---
Author Organization [facility] and [facility] Address [address] [place] [phone] Care Team Providers Care Service Order Taker Name Role Phone No, Pcp (Do Not Change Name) Primary Care Provid er Unavailable Encounter Details Date Type Department Care Team (Late st Contact Info) Description 09/24/2024 Documentation [facility] [address] [place] [phone] Richard Lewis MD [address] [place] [address] Social History Tobacco Use Types [...] Visit [facility] [address] [facility] 2nd Floor [place], [place] [phone] Richard Lewis MD [address] [place] [phone] documented as of this encounter Visit Diagnoses Not on filedocumented in this encounter Additional Health Concerns Assessment Noted Time PHQ-9 Depression Total Score: 0 01/27/20 8:26 AM EDT documented as of this encounter Care Teams Service Order Taker Relationship Specialty Start Date End Date No, Pcp (Do Not Change Name) PCP - General 07/19/24 documented as of this encounter
--- OUTSIDE RECORDS SUMMARY | 2025-04-21 12:55 | XMS_ITS | Encounter Summary ---
Author Organization [facility] and [facility] Address [address] [place] [phone] Care Team Providers Care Metal Trimmer Name Role Phone No, Pcp (Do Not Change Name) Primary Care Provid er Unavailable Encounter Details Date Type Department Care Team (Late st Contact Info) Description 10/07/2024 Scanned Document INTERFACE DEFAULT [address] [place] [phone] System, Provider Not In Social History Tobacco [...] EST Office Visit [facility] [address] [place] [address] Richard Lewis MD [address] [place] [phone] documented as of this encounter Visit Diagnoses Not on filedocumented in this encounter Additional Health Concerns Assessment Noted Time PHQ-9 Depression Total Score: 0 01/27/20 24 8:26 AM EDT documented as of this encounter Care Teams Metal Trimmer Relationship Specialty Start Date End Date No, Pcp (Do Not Change Name) PCP - General 07/19/24 documented as of this encounter
--- OUTSIDE RECORDS SUMMARY | 2025-04-21 12:55 | XMS_ITS | Encounter Summary ---
Author Organization [facility] and [facility] Address [address] [place] [phone] Care Team Providers Care Offal Separator Name Role Phone No, Pcp (Do Not Change Name) Primary Care Provid er Unavailable Encounter Details Date Type Department Care Team (Late st Contact Info) Description 09/30/2024 Scanned Document INTERFACE DEFAULT [address] [place] [phone] System, Provider Not In Social History Tobacco [...] EST Office Visit [facility] [address] [place] [address] Richadr Lewis MD [address] [place] [phone] documented as of this encounter Visit Diagnoses Not on filedocumented in this encounter Additional Health Concerns Assessment Noted Time PHQ-9 Depression Total Score: 0 01/27/20 24 8:26 AM EDT documented as of this encounter Care Teams Offal Separator Relationship Specialty Start Date End Date No, Pcp (Do Not Change Name) PCP - General 07/19/24 documented as of this encounter
--- OUTSIDE RECORDS SUMMARY | 2025-04-21 12:55 | XMS_ITS | Encounter Summary ---
Author Organization [facility] Address [address] [place] [phone] Phone Care Team Providers Care Bracelet Form Coverer Name Role Phone Gustavo Suarez DO Primary Care Provider Ellie Kan PA Unavailable [phone] Reason for Visit * Reason Onset Date Comments Rx to different pharmacy 03/08/2020 Encounter Details Date Type Department Care Team (Late st Contact Info) Description 03/08/2020 Telephone [facility] Obstetrics [facility] Gynecology Clinic [address] [place] [address] Gustavo Noe MD [address] [place] [address] Rx to different pharmacy Social History Tobacco [...] stating rx for patch should go to [facility] - documented in this encounter Plan of Treatment Not on file documented as of this encounter Visit Diagnoses Diagnosis Menopausal syndrome- Primary Symptomatic menopausal or female climacteric states documented in this encounter Care Teams Bracelet Form Coverer Relationship Specialty Start Date End Date Gustavo Suarez DO [address] [place] [address] PCP - General Internal Medicine 02/16/18 Ellie Kan PA [address] [place] [address] Physician Desktop Engineer 07/14/24 documented as of this encounter Additional Source Comments The information contained in this document represents components of the legal health record. It is not the complete legal health record.[facility]
--- OUTSIDE RECORDS SUMMARY | 2025-04-21 12:55 | XMS_ITS | Encounter Summary ---
Author Organization [facility] and [facility] Address [address] [place] [phone] Care Team Providers Care Target Aircraft Controller Name Role Phone No, Pcp (Do Not Change Name) Primary Care Provid er Unavailable Encounter Details Date Type Department Care Team (Late st Contact Info) Description 08/08/2023 Scanned Document [facility] [address] [place] [phone] Marquita Gallegos MD [address] [place] [phone] Social History Tobacco Use Types Packs/Day [...] Office Visit [facility] [address] [place] [phone] Richard Lewis MD [address] [place] [phone] documented as of this encounter Visit Diagnoses Not on filedocumented in this encounter Care Teams Target Aircraft Controller Relationship Specialty Start Date End Date No, Pcp (Do Not Change Name) PCP - General 07/19/24 documented as of this encounter
--- OUTSIDE RECORDS SUMMARY | 2025-04-21 12:56 | XMS_ITS | Encounter Summary ---
Author Organization [facility] and [facility] Address [address] [place] [phone] Care Team Providers Care Knot Borer Name Role Phone No, Pcp (Do Not Change Name) Primary Care Provid er Unavailable Encounter Details Date Type Department Care Team (Late st Contact Info) Description 06/09/2024 Scanned Document INTERFACE DEFAULT [address] [place] [address] System, Provider Not In Social History [...] Office Visit [facility] [address] [place] [address] Richard Lewis MD [address] [place] [address] documented as of this encounter Visit Diagnoses Not on filedocumented in this encounter Additional Health Concerns Assessment Noted Time PHQ-9 Depression Total Score: 0 01/27/20 8:26 AM EDT documented as of this encounter Care Teams Knot Borer Relationship Specialty Start Date End Date No, Pcp (Do Not Change Name) PCP - General 07/19/24 documented as of this encounter
--- OUTSIDE RECORDS SUMMARY | 2025-04-21 12:56 | XMS_ITS | Encounter Summary ---
Author Organization [facility] and [facility] Address [address] [place] [address] Care Team Providers Care Skiing Teacher Name Role Phone No, Pcp (Do Not Change Name) Primary Care Provid er Unavailable Reason for Referral * Physical Medicine (Routine) - New Request Specialty Diagnoses / Procedures Referred By Maria Isabel shahid Referred To Contact Physical Therapy Diagnoses Weakness Muscle spasm Richard Lewis MD [address] [place] [address] Phone: tel: fax: Referral ID Status Reason Start Date Expiration Date Visits Requested Visits Authorized [id number] New Request Specialty Services Required 07/26/2024 07/26/2025 1 1 Reason for Visit * Reason Onset Date Comments Triage 07/26/2024 Increased muscle spasms Encounter Details Date Type Department Care Team (Late st Contact Info) Description 07/26/2024 Telephone [facility] [address] [address] Richard Lewis MD [address] [place] [address] Triage (Increased muscle spasms ) [...] EST Office Visit [facility] [address] [place] [address] Richard Lewis MD [address] [place] [address] Scheduled Referrals Name Type Priority [...] documented as of this encounter Care Teams Skiing Teacher Relationship Specialty Start Date End Date No, Pcp (Do Not Change Name) PCP - General 07/19/24 documented as of this encounter
--- OUTSIDE RECORDS SUMMARY | 2025-04-21 12:56 | XMS_ITS | Encounter Summary ---
Author Organization [facility] and [facility] Address [address] [place] [phone] Care Team Providers Care Plumbing Hardware Assembler Name Role Phone No, Pcp (Do Not Change Name) Primary Care Provid er Unavailable Encounter Details Date Type Department Care Team (Late st Contact Info) Description 03/26/2024 Scanned Document INTERFACE DEFAULT [address] [place] [address] System, Provider Not In Social History [...] Office Visit [facility] [address] [place] [address] Richard Lewis MD [address] [place] [address] documented as of this encounter Visit Diagnoses Not on filedocumented in this encounter Additional Health Concerns Assessment Noted Time PHQ-9 Depression Total Score: 0 01/27/20 8:26 AM EDT documented as of this encounter Care Teams Plumbing Hardware Assembler Relationship Specialty Start Date End Date No, Pcp (Do Not Change Name) PCP - General 07/19/24 documented as of this encounter
== END 2025-04-21 11:32 | disposition home or self-care (01) ==
LOC: HO.HMCSH 10:24
PROVIDERS: PCP Physician Assistant Medical; Visit Provider Physician Assistant Medical
DX: Z00.00 Encounter for general adult medical examination without abnormal findings (principal); I99.8 Other disorder of circulatory system; E78.5 Hyperlipidemia, unspecified; E07.9 Disorder of thyroid, unspecified; Z86.0100 Personal history of colon polyps, unspecified; Z75.0 Medical services not available in home

== ENCOUNTER → 2025-04-21 10:24 | Outpatient (BNVA) | payer OTHER, MEDICARE, SELFPAY | PROVIDERS: PCP Physician Assistant Medical; Visit Provider Physician Assistant Medical | DX: Z00.00 Encounter for general adult medical examination without abnormal findings (principal); I10 Essential (primary) hypertension; I99.8 Other disorder of circulatory system; E78.5 Hyperlipidemia, unspecified; E07.9 Disorder of thyroid, unspecified; Z75.0 Medical services not available in home; Z86.0100 Personal history of colon polyps, unspecified | CPT/HCPCS: 96127 ==

== ENCOUNTER 2025-04-22 20:55 | Emergency (ER) | payer MEDICARE, OTHER, MEDICAID, SELFPAY ==
--- NOTE | 2025-04-22 | ECG_ITS ---
Test Reason : WEAKNESS Blood Pressure : */* mmHG Vent. Rate : 73 BPM Atrial Rate : 73 BPM P-R Int : 232 ms QRS Dur : 86 ms QT Int : 390 ms P-R-T Axes : 56 39 50 degrees QTcB Int : 429 ms Sinus rhythm with 1st degree A-V block Otherwise normal ECG When compared with ECG of 22-Apr-2025 21:06, No significant change was found Referred By: Generic ED Physician Electronically Signed By: Clark Hope
[2025-04-22 21:05] VITALS: BP 150/73; BP 162/78; PULSE 74; PULSE 79; RESP 14; TEMP 36.6; O2SAT 100; O2SAT 97; BMI 26.9
[2025-04-22 21:19] LABS: MANUAL DIFF FLAG NO
[2025-04-22 21:20] LABS: Hematocrit 33.8 % (37.0-47.0); Hemoglobin 11.8 g/dl (12.0-16.0); Imm Gran Abs Auto 0.00 X10*3/uL (0.00-0.03); Imm Gran Pct Auto 0.0 % (0.0-0.4); Lymphocytes Absolute Auto 1.6 X10*3/uL (1.2-4.9); Mean Corpuscular HGB Conc 34.9 g/dl (31.0-35.0); Mean Corpuscular Hemoglobin 30.7 pg (27.0-33.0); Mean Corpuscular Volume 88.0 fL (80.0-98.0); NRBC Abs Auto 0.000 X10*3/uL (0.0-0.012); NRBC Pct Auto 0.0 /100WBC (0.0-0.2); Platelet Count 287 X10*3/uL (160-400); Red Blood Count 3.84 X10*6/uL (4.20-5.50); White Blood Count 4.0 X10*3/uL (4.8-10.8)
--- OUTSIDE RECORDS SUMMARY | 2025-04-22 21:23 | XMS_ITS | Encounter Summary ---
Author Organization [facility] and [facility] Address [address] [place] [phone] Care Team Providers Care Cloth Winder Name Role Phone No, Pcp (Do Not Change Name) Primary Care Provid er Unavailable Encounter Details Date Type Department Care Team (Late st Contact Info) Description 01/19/2025 Scanned Document INTERFACE DEFAULT [address] [place] [address] [phone] System, Provider Not In Social History Tobacco [...] Office Visit [facility] [address] [place] [address] Richard Lewis MD [address] [place] [phone] documented as of this encounter Visit Diagnoses Not on filedocumented in this encounter Additional Health Concerns Assessment Noted Time PHQ-9 Depression Total Score: 0 01/27/20 24 8:26 AM EDT documented as of this encounter Care Teams Cloth Winder Relationship Specialty Start Date End Date No, Pcp (Do Not Change Name) PCP - General 07/19/24 documented as of this encounter
--- OUTSIDE RECORDS SUMMARY | 2025-04-22 21:23 | XMS_ITS | Encounter Summary ---
Author Organization [facility] and [facility] Address [address] [place] [phone] Care Team Providers Care Information Systems Project Manager Name Role Phone No, Pcp (Do Not Change Name) Primary Care Provid er Unavailable Encounter Details Date Type Department Care Team (Late st Contact Info) Description 03/08/2024 Scanned Document INTERFACE DEFAULT [address] [place] [address] System, Provider Not In Social History [...] EST Office Visit [facility] [address] [place] [address] Richard Lewis MD [address] [place] [address] documented as of this encounter Procedures Procedure [...] documented as of this encounter Care Teams Information Systems Project Manager Relationship Specialty Start Date End Date No, Pcp (Do Not Change Name) PCP - General 07/19/24 documented as of this encounter
--- OUTSIDE RECORDS SUMMARY | 2025-04-22 21:23 | XMS_ITS | Encounter Summary ---
Author Organization [facility] [employer] [facility] and [facility] Address [address] [place] [phone] Care Team Providers Care Rope Tier Name Role Phone No, Pcp (Do Not Change Name) Primary Care Provid er Unavailable Encounter Details Date Type Department Care Team (Late st Contact Info) Description 08/08/2023 Scanned Document [facility] [address] [place] [phone] Marquita Gallegos MD [address] [place] [phone] Social History Tobacco Use Types Packs/Day [...] Office Visit [facility] [address] [place] [phone] Richard Lewis MD [address] [place] [phone] documented as of this encounter Visit Diagnoses Not on filedocumented in this encounter Care Teams Rope Tier Relationship Specialty Start Date End Date No, Pcp (Do Not Change Name) PCP - General 07/19/24 documented as of this encounter
--- OUTSIDE RECORDS SUMMARY | 2025-04-22 21:23 | XMS_ITS | Encounter Summary ---
Author Organization [facility] and [facility] Address [address] [place] [phone] Care Team Providers Care Blower And Compressor Assembler Name Role Phone No, Pcp (Do Not Change Name) Primary Care Provid er Unavailable Encounter Details Date Type Department Care Team (Late st Contact Info) Description 10/07/2024 Scanned Document INTERFACE DEFAULT [address] [place] [phone] System, Provider Not In Social History Tobacco [...] EST Office Visit [facility] [address] [place] [address] Richard Lewis MD [address] [place] [phone] documented as of this encounter Visit Diagnoses Not on filedocumented in this encounter Additional Health Concerns Assessment Noted Time PHQ-9 Depression Total Score: 0 01/27/20 24 8:26 AM EDT documented as of this encounter Care Teams Blower And Compressor Assembler Relationship Specialty Start Date End Date No, Pcp (Do Not Change Name) PCP - General 07/19/24 documented as of this encounter
--- OUTSIDE RECORDS SUMMARY | 2025-04-22 21:23 | XMS_ITS | Clinical Summary ---
Author Organization [facility] Address [address] [facility] [place] [address] Phone Care Team Providers Care Erecting Engineer Name Role Phone Clarence Leiva MD Primary Care Provider [phone] Allergies Active Allergy Reactions Criticality Noted Date [...] CAD (coronary artery disease) 06/09/2024 Non-ST elevation NV (NSTEMI) 06/09/2024 Dizziness 04/14/2024 Assessment & Plan [...] this time she is working with a functional mental disability teacher and will continue to work on [...] mmol/L LAB CHEMISTRY METHOD 04/05/2024 3:28 PM [facility] Potassium 3.8 3.5 - 5.5 mmol/L LAB CHEMISTRY METHOD 04/05/2024 3:28 PM [facility] Chloride 111(H) 96 - 110 mmol/L LAB CHEMISTRY METHOD 04/05/2024 3:28 PM [facility] CO2 26 21 - 32 mmol/L LAB CHEMISTRY METHOD 04/05/2024 3:28 PM [facility] Anion Gap 8 3 - 11 LAB CHEMISTRY METHOD 04/05/2024 3:28 PM [facility] Glucose 84 70 - 100 mg/dL LAB CHEMISTRY METHOD 04/05/2024 3:28 PM [facility] BUN 9 5 - 25 mg/dL LAB CHEMISTRY METHOD 04/05/2024 3:28 PM [facility] Creatinine 0.63 0.50 - 1.10 mg/dL LAB CHEMISTRY METHOD 04/05/2024 3:28 PM [facility] eGFR 99 >=60 mL/min/1. 73m2 LAB CHEMISTRY METHOD 04/05/2024 3:28 PM [facility] Comment:Calculation based on the Chronic Kidney Disease Epidemiology Collaboration (CKD-EPI) equation refit without adjustment for race. BUN/Creatinine Ratio 14.3 LAB CHEMISTRY METHOD 04/05/2024 3:28 PM [facility] Calcium 9.5 8.5 - 10.5 mg/dL LAB CHEMISTRY METHOD 04/05/2024 3:28 PM [facility] AST (SGOT) 24 10 - 42 unit/L LAB CHEMISTRY METHOD 04/05/2024 3:28 PM [facility] ALT (SGPT) 19 10 - 60 unit/L LAB CHEMISTRY METHOD 04/05/2024 3:28 PM [facility] Alkaline Phosphatase 65 42 - 121 unit/L LAB CHEMISTRY METHOD 04/05/2024 3:28 PM EST [facility] Total Protein 6.6 6.0 - 8.0 g/dL LAB CHEMISTRY METHOD 04/05/2024 3:28 PM EST [facility] Albumin 3.7 3.2 - 5.0 g/dL LAB CHEMISTRY METHOD 04/05/2024 3:28 PM EST [facility] Total Bilirubin 0.6 0.0 - 1.4 mg/dL LAB CHEMISTRY METHOD 04/05/2024 3:28 PM EST [facility] Blood Venous blood specimen / Unknown Venipuncture / Unknown 04/05/2024 2:46 PM EST 04/05/2024 2:59 PM EST us Enrique Moyer MD LAB BLOOD ORDERABLES Final Result [facility] [address] [place] [address], from Last 3 Months or Most Recently Relevant to Health Maintenance Insurance [employer] MED[employer] ADVANTAGE [facility] Advance Directives Documents on File Type Date Recorded Patient Train Conductor Expl anation Health Care Decision (hx) 02/15/2022 AD SPAULDING DIRECTIVE Health Care Decision (hx) 02/15/2022 AD SPAULDING DIRECTIVE Health Care Decision (hx) 02/15/2022 AD SPAULDING DIRECTIVE Care Teams Erecting Engineer Relationship Specialty Start Date End Date Clarence Leiva MD [facility] [address] [place] [address] [address] [place] [address] PCP - General Internal Medicine 08/02/24
--- OUTSIDE RECORDS SUMMARY | 2025-04-22 21:23 | XMS_ITS | Encounter Summary ---
Author Organization [facility] Address [address] [place] [phone] Care Team Providers Care Billing Adjudicator Name Role Phone No, Pcp (Do Not Change Name) Primary Care Provid er Unavailable Encounter Details Date Type Department Care Team (Late st Contact Info) Description 01/20/2025 Scanned Document INTERFACE DEFAULT [address] [place] [address] [phone] System, Provider Not In Social History Tobacco [...] EST Office Visit [facility] [address] [place] [address] Richard Lewis MD [address] [place] [phone] documented as of this encounter Visit Diagnoses Not on filedocumented in this encounter Additional Health Concerns Assessment Noted Time PHQ-9 Depression Total Score: 0 01/27/20 24 8:26 AM EDT documented as of this encounter Care Teams Billing Adjudicator Relationship Specialty Start Date End Date No, Pcp (Do Not Change Name) PCP - General 07/19/24 documented as of this encounter
--- OUTSIDE RECORDS SUMMARY | 2025-04-22 21:23 | XMS_ITS | Clinical Summary ---
Author Organization [facility] Address [address] [place] [address] Care Team Providers Care Centrex Radio Operator Name Role Phone Gustavo Suarez Primary [...] patient's age to complete this topic Insurance [facility] [employer] [facility] * Guarantor: DANIELLE DENTON Account Type Relation to Patient Date of Phone Billing Address Personal/Family 1960 Care Teams Centrex Radio Operator Relationship Specialty Start Date End Date Gustavo Suarez [address] [place] [phone] PCP - General Internal Medicine 11/13/22
--- OUTSIDE RECORDS SUMMARY | 2025-04-22 21:23 | XMS_ITS | Data Portability ---
Author Organization [place] [facility], Allergy Address [address] [place] [address] Assessment No assessment recorded. 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, nasal cavity and accessory sinuses; Note: Date Diagnosed : 04/07/2020 1:44 PM (D14.0) Not Available [facility] 02:19:03 Ataxia 52969174 Active 2019 Ataxia, unspecifi ed; Note: Date Diagnosed : 04/07/2020 1:44 PM (R27.0) Not Available [facility] 02:18:41 Dysphagia 78463633 Active 2023 GISELA PRUETT MD [address],[place] [address], [place], [address] , [facility] - [facility] 10:19:25 Gastroeso phageal reflux disease without esophagit is 734186199 Active 2023 GISELA PRUETT MD [address],[place] [address], [facility] [place], [address] , [facility] - [facility] 10:19:44 Chronic hoarsenes s 40215676246 05 Active 2023 GISELA PRUETT MD [address],[place] [address], [place], [address] , [facility] - [facility] 10:20:46 Problem Notes None recorded. Procedures Surgical History Date Name Laterality Status Provider Name and Address Organization Details Recorded Time 11/11/2023 FFL_RE completed GISELA PRUETT MD [address],[place] [address], [place], [address], [facility] - [facility] 11/11/2023 10:26:08 Imaging Results None recorded. Procedure Notes None recorded. Medical Equipment None Reported. Allergies Allergen ID Allergen Name Allergen Category Reaction Reaction Severity Criticality Documentation Date Start Date Code Code System Note Provider Name and Address Organization Details Recorded Time 48846 Product containin g penicilli n (product) medicatio n hives Not available Not available 09/16/2023 42545 8001 SNOMED React ion: skin rashe s, hives ;; Not Available [facility] 00:48:35 08580 codeine medicatio n nausea Not available Not available 09/16/2023 2670 RxNorm React ion: Stoma ch cramp s; Not Available [facility] 00:48:40 04668 acetamino phen / oxycodone medicatio n nausea Not available Not available 09/16/2023 40886 3 RxNorm React ion: nause a;; Not Available [facility] 4 00:48:40 Medications Name Sig Start [...] 20 mg tablet active Medicatio n ID: [id number] Br and Name: atorvasta tin Send Method: [...] release 24 hr active Medicatio n ID: [id number] Br and Name: isosorbid e mononitra te [...] 300 mg capsule active Medicatio n ID: [id number] and Name: gabapenti n Send Method: E-Prescri [...] 25 mg tablet active Medicatio n ID: [id number] Br and Name: metoprolo l tartrate Send [...] Updated DateTime 11/11/2023 160.02 cm 21.8 kg/m2 99288.86 g Delores Mejía [place] - [facility] 11/11/2023 09:58:27 Social History None recorded. [...] Note 6977 GISELA PRUETT MD [facility] [address] [address] 11/11/2023 09:08:06 11/11/2023 10:28:26 Dysphagia 80183392 R13.10 see below Gastroesop hageal reflux disease without esophagitis 484534247 K21.9 continue omeprazole per prescribin g provider Chronic hoarseness 46988 60009 105 R49.0 Her right vocal cord is sluggish. No glottic gap. Likely recovering after ACDF. MBS showed a safe swallow. 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 No ENT interventi on needed. No tumors [...] Name 11/19/2024 2 [employer] - [employer] (PPO) [id number] Kristopher Bertin [id number] Ying Denton 11/19/2024 1 [employer] (MEDICARE REPLACEMENT/ ADVANTAGE - PPO) [id number] Ying A Bertin [id number] Ying Denton 11/19/2024 2 [employer] - [facility] BENEFIT PLAN MANAGEMENT (PPO) Ying Denton [id number] Ying Denton Notes Date Note Type Note [...] She is being worked up at [facility] for a neurologic disorder. She has muscle cramping and she can't use her left arm well. On omeprazole for GERD. Hx of ACDF. She has had some voice trouble since with difficulty projecting. GISELA PRUETT MD [address] [place] [address], [place], [address], [place] [facility] 11/11/2023 10:28:19 OBGyn Episode No OBEpisode recorded.
--- OUTSIDE RECORDS SUMMARY | 2025-04-22 21:23 | XMS_ITS | Encounter Summary ---
Author Organization [facility] Address [address] [place] [address] Care Team Providers Care Vegetable Tester Name Role Phone No, Pcp (Do Not Change Name) Primary Care Provid er Unavailable Encounter Details Date Type Department Care Team (Late st Contact Info) Description 10/20/2024 Scanned Document INTERFACE DEFAULT [address] [place] [phone] System, Provider Not In Social History Tobacco [...] [facility] Visit [facility] [address] [place] [address] Richard Lewis MD [address] [place] [phone] documented as of this encounter Visit Diagnoses Not on filedocumented in this encounter Additional Health Concerns Assessment Noted Time PHQ-9 Depression Total Score: 0 01/27/20 24 8:26 AM EDT documented as of this encounter Care Teams Vegetable Tester Relationship Specialty Start Date End Date No, Pcp (Do Not Change Name) PCP - General 07/19/24 documented as of this encounter
--- OUTSIDE RECORDS SUMMARY | 2025-04-22 21:23 | XMS_ITS | Encounter Summary ---
Author Organization [facility] and [facility] Address [address] [place] [address] Care Team Providers Care Cisco Engineer Name Role Phone No, Pcp (Do Not Change Name) Primary Care Provid er Unavailable Reason for Visit * Reason Onset Date Comments Other 04/19/2025 Encounter Details Date Type Department Care Team (Late st Contact Info) Description 04/19/2025 Telephone [facility] [address] [place] [address] Richard Lewis MD [address] [place] [phone] Other Social History Tobacco Use Types Packs/Day [...] prescription for IVIG to be sent to [facility] specialty pharmacy, [facility] documented in this encounter Plan of Treatment Upcoming Encounters Date Type Department Care Team (Late st Contact Info) Description 05/31/2025 3:30 PM EST Office Visit [facility] [address] [place] [phone] Richard Lewis MD [address] [place] [address] documented as of this encounter Visit Diagnoses Not on filedocumented in this encounter Additional Health Concerns Assessment Noted Time PHQ-9 Depression Total Score: 0 01/27/20 24 8:26 AM EDT documented as of this encounter Care Teams Cisco Engineer Relationship Specialty Start Date End Date No, Pcp (Do Not Change Name) PCP - General 07/19/24 documented as of this encounter
--- OUTSIDE RECORDS SUMMARY | 2025-04-22 21:23 | XMS_ITS | Clinical Summary ---
Author Organization [facility] Address [address] [place] [address] Phone Care Team Providers Care Independent Living Instructor Name Role Phone Gustavo Suarez DO Primary Care Provider Ellie Kan PA Unavailable [phone] Allergies Active Allergy Reactions Criticality Noted Date [...] that she has discussed this with her copyman who thought that it was reasonable to continue with the estradiol patch. She is on an anticoagulant which would decrease the risk of stroke associated with the VTE. I will see if I can contact her copyman for some further guidance and also do [...] formulations. However, I do believe that her copyman should weigh in on this as well. Therefore, I will send a copy of today's note. Her current dose of estradiol is 0 0.075 mg per 24 hours changed weekly. I cannot find in the chart where her previous dose was but according to the notes it was decreased to this current dose. If her copyman is in agreement, she will call when [...] A & B [employer] PPO MEDICARE REPLACEMENT [address] [place], [place] [id number] TPA MEDICARE PART A & B AET[employer] O MEDICARE REPL[place] [address] MEDICARE PART A & B [employer] PPO [place] [id number] MEDICARE PART A & B [facility] MED[facility] RE[facility] MEDICARE PART A & B [facility] MEDICARE REPLACEMENT [address] [place], [place] [id number] [place] [address] MEDICARE PART A & B [facility] MEDICARE REPLACEMENT Elie [place] MEDICARE PART A & B [employer] PPO MEDICARE REPLACEMENT CIG[employer] TPA MEDICARE PART A & B [employer] PPO MEDICARE [place] [address] MEDICARE PART A & B [employer] PPO MEDICARE REPLACEMENT C[employer] TPA Care Teams Independent Living Instructor Relationship Specialty Start Date End Date Gustavo Suarez DO [address] [place] [phone] PCP - General Internal Medicine 02/16/18 Ellie Kan PA [address] [place] [address] Physician Biomedical Engineering Technician 07/14/24 Additional Source Comments The information contained in this document represents components of the legal health record. It is not the complete legal health record.[facility]
--- OUTSIDE RECORDS SUMMARY | 2025-04-22 21:23 | XMS_ITS | Clinical Summary ---
Author Organization [facility] Prior to 10/02/24 Address [address] [place] [address] Care Team Providers Care Infantry Weapons Officer Name Role Phone Gustavo Suarez DO Primary Care Provider [phone] Allergies Active Allergy Reactions Criticality Noted Date [...] 5 12/01/2023 Active ergocalciferol (VITAMIN D2) capsule 65945 units Take 1 capsule (50,000 Units total) [...] age to complete this topic Care Teams Infantry Weapons Officer Relationship Specialty Start Date End Date Gustavo Suarez DO [address] [place] [phone] PCP - General Internal Medicine 06/23/18
--- OUTSIDE RECORDS SUMMARY | 2025-04-22 21:23 | XMS_ITS | Encounter Summary ---
Author Organization [facility] and [facility] Address [address] [place] [phone] Care Team Providers Care Steel Hanger Name Role Phone No, Pcp (Do Not Change Name) Primary Care Provid er Unavailable Reason for Visit * Reason Onset Date Comments Triage 09/29/2024 ? Medication den ial Encounter Details Date Type Department Care Team (Late st Contact Info) Description 09/29/2024 Telephone [facility] [address] [place] [address] Richard Lewis MD [address] [place] [address] Triage (? Medication denial ) [...] EST Office Visit [facility] [address] [place] [phone] Richard Lewis MD [address] [place] [address] documented as of this encounter Visit Diagnoses Not on filedocumented in this encounter Additional Health Concerns Assessment Noted Time PHQ-9 Depression Total Score: 0 01/27/20 24 8:26 AM EDT documented as of this encounter Care Teams Steel Hanger Relationship Specialty Start Date End Date No, Pcp (Do Not Change Name) PCP - General 07/19/24 documented as of this encounter
--- OUTSIDE RECORDS SUMMARY | 2025-04-22 21:23 | XMS_ITS | Encounter Summary ---
Author Organization [facility] and [facility] Address [address] [place] [address] Care Team Providers Care Assembler Trim Name Role Phone No, Pcp (Do Not Change Name) Primary Care Provid er Unavailable Encounter Details Date Type Department Care Team (Late st Contact Info) Description 09/24/2024 Documentation [facility] [address] [place] [phone] Richard Lewis MD [address] [place] [address] Social History Tobacco Use Types [...] Office Visit [facility] 6 [facility] [place] 2nd Floor [place], [place] [phone] Richard Lewis MD [address] [place] [phone] documented as of this encounter Visit Diagnoses Not on filedocumented in this encounter Additional Health Concerns Assessment Noted Time PHQ-9 Depression Total Score: 0 01/27/20 8:26 AM EDT documented as of this encounter Care Teams Assembler Trim Relationship Specialty Start Date End Date No, Pcp (Do Not Change Name) PCP - General 07/19/24 documented as of this encounter
--- OUTSIDE RECORDS SUMMARY | 2025-04-22 21:23 | XMS_ITS | Encounter Summary ---
Author Organization [facility] and [facility] Address [address] [place] [address] Care Team Providers Care Cigar Head Piercer Name Role Phone No, Pcp (Do Not Change Name) Primary Care Provid er Unavailable Reason for Visit * Reason Onset Date Comments Triage 10/10/2023 Encounter Details Date Type Department Care Team (Late st Contact Info) Description 10/10/2023 Telephone [facility] [address] [place] [address] Richard Lewis MD [address] [place] [phone] Triage Social History Tobacco Use Types Packs/Day [...] being worked up for [facility] at the [facility] and was scheduled to start on Ocrevus in 10/2021. 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 She needed to go to rehab after this event as she required a wheelchair. She occasionally experiences blurry vision but follows regularly with her filtrose crusher. * Telephone Encounter - Katarina Handy - 10/10/2023 11:04 AM EDT Copied from [facility] #[id number]. Topic: General Message - [facility] >> Oct 10, 2023 11:00 AM Katarina Shukla wrote: [facility] MESSAGE Time of call: 11:00 AM [...] urgently? no Best telephone number for callback: [phone] Best time to return call: any Permission to leave message: yes Katarina Handy [facility] Mold Washer documented in this encounter Plan of Treatment Upcoming Encounters Date Type Department Care Team (Late st Contact Info) Description 05/31/2025 3:30 PM EST Office Visit [facility] [address] [address] Richard Lewis MD [address] [place] [address] documented as of this encounter Visit Diagnoses Not on filedocumented in this encounter Additional Health Concerns Assessment Noted Time PHQ-9 Depression Total Score: 0 09/24/19 24 9:25 AM EDT documented as of this encounter Care Teams Cigar Head Piercer Relationship Specialty Start Date End Date No, Pcp (Do Not Change Name) PCP - General 07/19/24 documented as of this encounter
--- OUTSIDE RECORDS SUMMARY | 2025-04-22 21:23 | XMS_ITS | Encounter Summary ---
Author Organization [facility] and [facility] Address [address] [place] [address] Care Team Providers Care Lamp Shade Sewer Name Role Phone No, Pcp (Do Not Change Name) Primary Care Provid er Unavailable Encounter Details Date Type Department Care Team (Late st Contact Info) Description 09/30/2024 Scanned Document INTERFACE DEFAULT [address] [place] [phone] System, Provider Not In Social History Tobacco [...] EST Office Visit [facility] [address] [place] [address] Richard Lewis MD [address] [place] [phone] documented as of this encounter Visit Diagnoses Not on filedocumented in this encounter Additional Health Concerns Assessment Noted Time PHQ-9 Depression Total Score: 0 01/27/20 24 8:26 AM EDT documented as of this encounter Care Teams Lamp Shade Sewer Relationship Specialty Start Date End Date No, Pcp (Do Not Change Name) PCP - General 07/19/24 documented as of this encounter
--- OUTSIDE RECORDS SUMMARY | 2025-04-22 21:23 | XMS_ITS | Encounter Summary ---
Author Organization [facility] Address [address] [place] [address] Phone Care Team Providers Care Solder Sprayer Name Role Phone Gustavo Suarez DO Primary Care Provider Ellie Kan PA Unavailable [phone] Reason for Visit * Reason Onset Date Comments Rx to different pharmacy 03/08/2020 Encounter Details Date Type Department Care Team (Late st Contact Info) Description 03/08/[address] [facility] [address] [place] [address] Gustavo Noe MD [address] [place] [address] Rx to different pharmacy Social History Tobacco [...] stating rx for patch should go to [facility] - documented in this encounter Plan of Treatment Not on file documented as of this encounter Visit Diagnoses Diagnosis Menopausal syndrome- Primary Symptomatic menopausal or female climacteric states documented in this encounter Care Teams Solder Sprayer Relationship Specialty Start Date End Date Gustavo Suarez DO [address] [place] [address] PCP - General Internal Medicine 02/16/18 Ellie Kan PA [address] [place] [address] Physician Supervisor Burling And Joining 07/14/24 documented as of this encounter Additional Source Comments The information contained in this document represents components of the legal health record. It is not the complete legal health record.[facility]
--- OUTSIDE RECORDS SUMMARY | 2025-04-22 21:23 | XMS_ITS | Encounter Summary ---
Author Organization [facility] Address [address] [place] [phone] Care Team Providers Care Psychiatric Secretary Name Role Phone No, Pcp (Do Not Change Name) Primary Care Provid er Unavailable Encounter Details Date Type Department Care Team (Late st Contact Info) Description 10/10/2023 Transcribed Orders [facility] SCHEDULING [address] [place] [address] Referral, Self Social History Tobacco [...] Description 05/31/2025 3:30 PM EST Office Visit [facility] [address] [address] Richard Lewis MD [address] [place] [address] documented as of this encounter Visit Diagnoses Not on filedocumented in this encounter Additional Health Concerns Assessment Noted Time PHQ-9 Depression Total Score: 0 09/24/19 24 9:25 AM EDT documented as of this encounter Care Teams Psychiatric Secretary Relationship Specialty Start Date End Date No, Pcp (Do Not Change Name) PCP - General 07/19/24 documented as of this encounter
--- OUTSIDE RECORDS SUMMARY | 2025-04-22 21:23 | XMS_ITS | Clinical Summary ---
Author Organization [address] Address [address] [place] [phone] Care Team Providers Care Tire Mounter Name Role Phone No, Pcp (Do Not [...] 05/2021 Penicillins Hives,Other (See Comments),Rash High 07/09/2017 Jkvtndy-Mew-Vtr Reductase Inhibitors Other (See Comments) Medium 07/19/2024 [...] Description 04/19/2025 Telephone [facility] [address] [place] [address] Richard Lewis MD Other 03/16/2025 Telephone [facility] [address] [place] [address] Richard Lewis MD Triage 03/08/2025 Telephone [facility] [address] [place] [address] Richard Lewis MD Other 03/02/2025 Telephone [facility] [address] [place] [address] Richard Lewis MD Triage 01/28/2025 Telephone [facility] [address] [place] [address] Richard Lewis MD Other 01/21/2025 Refill [facility] [address] [place] [address] Richard Lewis MD Medication Refill from Last 3 Months Social History Tobacco [...] Office Visit [facility] [address] [place] [phone] Richard Lewis MD [address] [place] [address] Health Maintenance Due Date Last Done [...] complete this topic Insurance QIANA BIRD [facility] MEDICARE [facility] MEDICARE [facility] MEDICARE Care Teams Tire Mounter Relationship Specialty Start Date End Date No, Pcp (Do Not Change Name) PCP - General 07/19/24
--- OUTSIDE RECORDS SUMMARY | 2025-04-22 21:23 | XMS_ITS | Clinical Summary ---
Author Organization [facility] Address [address] [facility] [address] [place] [address] Phone Care Team Providers Care Edi Consultant Name Role Phone Daniela Gustavo Denise BOYD Primary Care Provider [phone] Allergies Active Allergy Reactions Criticality Noted Date [...] formulations. However, I do believe that her ceramic tile mechanic should weigh in on this as well. Therefore, I will send a copy of today's note. Her current dose of estradiol is 0 0.075 mg per 24 hours changed weekly. I cannot find in the chart where her previous dose was but according to the notes it was decreased to this current dose. If her ceramic tile mechanic is in agreement, she will call when [...] Visit [facility] [address] [address] Enrique Guido [place] [address] [address] Health Maintenance Due Date Last [...] this topic Insurance [employer]na MCR Adv PPO ([id number]) [employer]na MCR Adv PPO ([phone]) [employer] Open Access ([phone]) Care Teams Edi Consultant Relationship Specialty Start Date End Date Gustavo Suarez DO [address] [place] [address] PCP - General 05/15/20
--- OUTSIDE RECORDS SUMMARY | 2025-04-22 21:24 | XMS_ITS | Encounter Summary ---
Author Organization [facility] Address [address] [place] [phone] Care Team Providers Care Package Pick Up Name Role Phone No, Pcp (Do Not Change Name) Primary Care Provid er Unavailable Encounter Details Date Type Department Care Team (Late st Contact Info) Description 03/26/2024 Scanned Document INTERFACE DEFAULT [address] [place] [address] System, Provider Not In Social History [...] EST Office Visit [facility] [address] [place] [address] Richard Lewis MD [address] [place] [address] documented as of this encounter Visit Diagnoses Not on filedocumented in this encounter Additional Health Concerns Assessment Noted Time PHQ-9 Depression Total Score: 0 01/27/20 8:26 AM EDT documented as of this encounter Care Teams Package Pick Up Relationship Specialty Start Date End Date No, Pcp (Do Not Change Name) PCP - General 07/19/24 documented as of this encounter
--- OUTSIDE RECORDS SUMMARY | 2025-04-22 21:24 | XMS_ITS | Encounter Summary ---
Author Organization [facility] and [facility] Address [address] [place] [address] Care Team Providers Care Rn Medicare Name Role Phone No, Pcp (Do Not Change Name) Primary Care Provid er Unavailable Reason for Referral * Physical Medicine (Routine) - New Request Specialty Diagnoses / Procedures Referred By Maria Isabel shahid Referred To Contact Physical Therapy Diagnoses Weakness Muscle spasm Richard Lewis MD [address] [place] [address] Phone: tel: fax: Referral ID Status Reason Start Date Expiration Date Visits Requested Visits Authorized [id number] New Request Specialty Services Required 07/26/2024 07/26/2025 1 1 Reason for Visit * Reason Onset Date Comments Triage 07/26/2024 Increased muscle spasms Encounter Details Date Type Department Care Team (Late st Contact Info) Description 07/26/2024 Telephone [facility] [address] [address] Richard Lewis MD [address] [place] [address] Triage (Increased muscle spasms ) [...] rehab resolutions * Telephone Encounter - Peggy Tionco RN - 07/26/2024 12:25 PM EDT Called [...] Office Visit [facility] [address] [place] [address] Richard Lewis MD [address] [place] [address] Scheduled Referrals Name Type Priority [...] documented as of this encounter Care Teams Rn Medicare Relationship Specialty Start Date End Date No, Pcp (Do Not Change Name) PCP - General 07/19/24 documented as of this encounter
--- OUTSIDE RECORDS SUMMARY | 2025-04-22 21:24 | XMS_ITS | Encounter Summary ---
Author Organization [facility] and [facility] Address [address] [place] [phone] Care Team Providers Care Publication Manager Name Role Phone No, Pcp (Do Not Change Name) Primary Care Provid er Unavailable Encounter Details Date Type Department Care Team (Late st Contact Info) Description 06/09/2024 Scanned Document INTERFACE DEFAULT [address] [place] [address] System, Provider Not In Social History [...] EST Office Visit [facility] [address] [place] [address] Richard Lewis MD [address] [place] [address] documented as of this encounter Visit Diagnoses Not on filedocumented in this encounter Additional Health Concerns Assessment Noted Time PHQ-9 Depression Total Score: 0 01/27/20 8:26 AM EDT documented as of this encounter Care Teams Publication Manager Relationship Specialty Start Date End Date No, Pcp (Do Not Change Name) PCP - General 07/19/24 documented as of this encounter
[2025-04-22 21:36] LABS: Alanine Aminotransferase 11 U/L (0-31); Albumin Level 4.1 g/dL (3.5-5.0); Alkaline Phosphatase 69 U/L (39-117); Anion Gap 12 (12-20); Aspartate Amino Transferase 31 U/L (5-31); Blood Urea Nitrogen 12 mg/dL (9-16); Calcium 9.4 mg/dL (8.4-10.2); Carbon Dioxide 24 mmol/L (22-29); Chloride 107 mmol/L (96-108); Creatinine Clr Calc Pharmacy 68.8; Estimated Glomerular Filt Rate > 60; Magnesium 2.2 mg/dL (1.6-2.6); Potassium 3.9 mmol/L (3.3-5.1); Sodium 139 mmol/L (135-145); Total Protein 8.4 g/dL (6.5-8.0)
[2025-04-22 21:43] LABS: Troponin-I High Sensitivity 4.7 ng/L (<3.5-17.0)
--- NOTE | 2025-04-22 22:56 | PC.NURSE ---
pt ambulatory to bathroom with steady gait with walker, urine sample obtained. pt taken back to room, states she can not use the tele leads as they are making her skin itchy, encouraged pt to keep stickers on as she came in for chest pain and pt refused stickers, reports she does not have chest pain.
[2025-04-22 23:04] VITALS: BP 120/54; PULSE 86; RESP 20; TEMP 36.8; O2SAT 98
[2025-04-22 23:04] LABS: Appearance Urine Clear; Glucose Urine UA Negative (Negative); PH >= 9.0 (5.0-9.0); Specific Gravity - Urine <= 1.005 (1.005-1.025)
[2025-04-23 00:49] VITALS: BP 102/47; PULSE 83; RESP 14; TEMP 36.6; O2SAT 96
--- NOTE | 2025-04-23 01:23 | ED.GENADULT ---
HPI - General Adult General Chief complaint: Weakness Stated complaint: weakness,sob Time Seen by Provider: 04/23/25 01:10 Source: patient and EMS Mode of arrival: EMS Limitations: no limitations History of Present Illness ED Provider: Dr. Charmaine Lewis HPI narrative: Patient comes to the emergency room low blood pressures. Patient states that she has a VNA who sees her in the morning, patient states that for last couple of days, she has a blood pressures in the low 90s. Patient does not take blood pressure medications. Patient states that 2-3 weeks ago, patient had a near syncopal episode after standing. 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 Patient denies any chest pain or shortness of breath. Related Data Home Medications ?Medication ?Instructions ?Recorded ?Confirmed estradiol 0.075 mg/24 hr weekly 1 patch transdermal WE@0900 08/14/22 04/21/25 transdermal patch lamotrigine 200 mg tablet,extended 400 mg PO DAILY 11/20/22 04/21/25 release 24 hr dicyclomine 10 mg capsule 10 mg PO QID 06/23/24 04/21/25 miscellaneous medical supply miscellaneous 08/19/24 04/21/25 immune globu G 5 gram/50 mL(10 ml IV 11/19/24 04/21/25 %)-gly-IgA ave 46 mcg/mL injection soln (Gamunex-C) diazepam 10 mg/spray (0.1 mL) mg intranasal muscle spasm 12/23/24 04/21/25 nasal spray (Valtoco) diazepam 5 mg tablet 10 mg PO BID PRN 12/23/24 04/21/25 diazepam 5 mg tablet (Valium) 5 mg PO BID PRN 12/23/24 04/21/25 immune glob G 20 gram/200 ml IV 12/23/24 04/21/25 mL(10%)-gly-IgA ave 46 mcg/mL injection soln (Gamunex-C) Previous Rx's ?Medication ?Instructions ?Recorded rollator #1 ea 12/23/22 epinephrine 0.3 mg/0.3 mL 0.3 mg (0.3 mL) IM Q10M PRN 06/23/24 injection, auto-injector anaphylaxis #2 ea Portable Mobility Bed rail #2 ea 08/20/24 baclofen 20 mg tablet 20 mg PO Q4H muscle spasm 90 days 09/24/24 #540 tabs omeprazole 20 mg capsule,delayed 20 mg PO BID 90 days #180 caps 09/29/24 release ergocalciferol (vitamin D2) 1,250 1,250 mcg PO Q2W 90 days #7 caps 01/20/25 mcg (50,000 unit) capsule morphine 15 mg immediate release 15 mg PO Q12H PRN pain #6 tabs 03/14/25 tablet morphine 15 mg immediate release 15 mg PO Q12H PRN severe pain 03/15/25 tablet (scale score 7-10) #6 tabs ranolazine 500 mg tablet,extended 500 mg PO BID #180 tabs 04/14/25 release,12 hr apixaban 5 mg tablet (Eliquis) 5 mg PO BID 90 days #180 tabs 04/19/25 gabapentin 600 mg tablet 1,200 mg (2 x 600 mg) PO BEDTIME 04/19/25 90 days #180 tabs Allergies Allergy/AdvReac Type Severity Reaction Status Date / Time Beta-Blockers Allergy Mild blood Verified 04/22/25 21:08 (Beta-Adrenergic Bloc pressure drop house dust Allergy Mild Anaphylaxis Verified 04/22/25 21:08 penicillin G (Penicillin G) Allergy Mild RASH Verified 04/22/25 21:08 penicillin V Allergy Unknown Abdominal Verified 04/22/25 21:08 Pain adhesive Allergy Blister Verified 04/22/25 21:08 mold Allergy Headache Verified 04/22/25 21:08 Rsuerrr-TDG-ThF Reductase Allergy Weakness Verified 04/22/25 21:08 Inhibitor codeine (Codeine) AdvReac Mild SEVERE Verified 04/22/25 21:08 ABDOMINAL PAIN Review of Systems Review of Systems: Constitutional : No Weight loss, No Fever, No Chills, No Night Sweats, No Fatigue, No Malaise ENT/Mouth : No Hearing loss, No Ear Pain, No Nasal Congestion, No Sinus Pain, No Hoarseness, No sore throat, No Rhinorrhea, No Swallowing Difficulty Eyes: No Eye Pain, No Swelling, No Redness, No Foreign Body, No Discharge, No Vision Changes Cardiovascular : No Chest Pain, No SOB, No Dyspnea on Exertion, No Orthopnea, No Edema, No Palpitations Respiratory : No Cough, No Sputum, No Wheezing, No Smoke Exposure, No Dyspnea Gastrointestinal : No Nausea, No Vomiting, No Diarrhea, No Constipation, No abdominal Pain, No Hematochezia, No Melena Genitourinary : no irregular bleeding, No Dysuria, No Urinary Frequency, No Hematuria, No Urinary Incontinence, No Urgency, No Flank Pain, No Urinary Flow Changes, No Hesitancy Musculoskeletal : No joint pain, No Myalgias, No Joint Swelling Skin : No Skin Lesions, No rash Neuro : Complaining of worsening muscle stiffness due to stiff person syndrome, No Weakness, No Numbness, No Paresthesias, No Loss of Consciousness, No Dizziness, No Headache Psych : No Anxiety/Panic, No Depression, No SI/HI/AH/VH, No Social Issues, Heme/Lymph: No Bruising, No Bleeding,No Lymphadenopathy Endocrine : No Polyuria, No Polydipsia, No Temperature Intolerance [facility] Past Medical History Medical History Multiple drug allergies Medical services in home not available History of colonic polyps Thyroid disorder Hyperlipidemia Fluctuating blood pressure Annual physical exam General medical exam Multiple thyroid nodules Hypertension Urinary urgency Urinary, incontinence, stress female Muscle weakness Blurry vision Intestinal cramps Bladder retention Carpal tunnel syndrome Right hand pain Overweight (BMI 25.0-29.9) Intermittent palpitations Neurogenic bladder History of mammogram (~08/25/24) Ataxia Coronary artery spasm Coronary artery anomaly Hair loss Hemorrhoids Diverticulosis Tubular adenoma Eczema Fibrocystic breast disease Herpes simplex Hypersomnia Witnessed apneic spells Arthritis Difficulty swallowing Weakness On anticoagulant therapy Lumbar spondylosis Spinal stenosis in cervical region Restless legs syndrome (RLS) Anemia Fatigue Cervical spondylosis Anxiety Bipolar disease, manic Occasional tremors Obstructive sleep apnea Insomnia GERD (gastroesophageal reflux disease) Cardiac microvascular disease TIA (transient ischemic attack) Atrial fibrillation Cardiomyopathy Surgical History H/O cervical discectomy History of partial hysterectomy History of tonsillectomy Hx of hand surgery History of radiofrequency ablation procedure for cardiac arrhythmia History of esophagogastroduodenoscopy (EGD) H/O colonoscopy (~10/05/20) H/O radiofrequency ablation (RFA) of nerve of lumbar spine Hx of cervical spine surgery Hx of shoulder surgery H/O: knee surgery Hx of cholecystectomy History of carpal tunnel release Hx of appendectomy Family History Family History Father Dementia Cancer Mother Cancer COPD (chronic obstructive pulmonary disease) Multiple sclerosis Daughter Myasthenia Social History Social History Household Members: Significant Other Housing: House Are you a primary professional healthcare representative to a significant other at home: No Do you presently have visiting nurse 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 Oriented X3. No acute distress. Eyes: Pupils equal, round and reactive to light. ENT: Pharynx normal. Neck: Normal inspection. Neck supple. No lymph nodes noted. No crepitus CVS: Normal heart rate and rhythm. Pulses normal. Normal S1 and S2 Respiratory: No respiratory distress. Breath sounds normal. No Wheezing. No rales Abdomen: Soft and nontender. No rigidity. No distention. Skin: Skin warm and dry. Normal skin color. Normal skin turgor. Extremities: No lower extremity edema. No Lacerations. No Rash Neuro: Oriented X 3. No motor deficit. No sensory deficit. Moving all extremities. No slurred speech. CN 2 through 12 grossly intact. Patient is ambulatory by herself, no restlessness. Psych: calm, cooperative, normal affect Vital Signs: Vital Signs - 24 hr 04/22/25 21:05 04/22/25 23:04 04/23/25 00:49 Temperature 98 F 98.3 F 97.9 F Pulse Rate 79 86 83 Respiratory Rate 14 20 14 Blood Pressure 150/73 H 120/54 L 102/47 L Pulse Oximetry 97 98 96 Oxygen Delivery Method Room Air Room Air Room Air 04/23/25 01:32 04/23/25 01:33 04/23/25 01:35 Temperature Pulse Rate 79 87 93 Respiratory Rate Blood Pressure 113/56 L 117/66 106/76 Pulse Oximetry Oxygen Delivery Method BMI result Body Mass Index 26.9 Medical Decision Making Medical Decision Making [facility] Narrative: My interpretation of labs: Patient's hematology at baseline, chemistry within normal limits, magnesium normal, urinalysis negative for UTI, serology negative for influenza RSV and COVID. Orthostatic vitals were negative. Patient's blood pressure 102/47. Earlier today 150/72. No episodes of hypotension. No fever . I discussed with the patient to stay well hydrated. Patient instructed to have close follow-up with the primary care physician. Patient takes 10 mg of diazepam daily. Discussed with the patient to slowly stand up especially after taking diazepam PE was considered. However, patient takes Eliquis daily, no tachycardic, no shortness of breath. Wells criteria score for pulmonary embolism is 0 Differential Diagnosis Differential Diagnoses: The differential diagnosis associated with the presentation includes (Orthostatic hypotension, vasovagal near-syncope, side-effect medication) Lab Data [facility] Lab Attestation statement: I reviewed the patient's lab results. 04/22/25 21:13 04/22/25 21:13 Labs: Lab Results 04/22/25 04/22/25 04/23/25 Range/Units 21:13 22:56 01:31 WBC 4.0 L (4.8-10.8) X10*3/uL RBC 3.84 L (4.20-5.50) X10*6/uL Hgb 11.8 L (12.0-16.0) g/dl Hct 33.8 L (37.0-47.0) % MCV 88.0 (80.0-98.0) fL MCH 30.7 (27.0-33.0) pg MCHC 34.9 (31.0-35.0) g/dl RDW 13.7 (11.0-16.0) % Plt Count 287 (160-400) X10*3/uL MPV 9.1 L (9.4-12.3) fL Immature Gran % (Auto) 0.0 (0.0-0.4) % Neut % (Auto) 48.8 (45-73) % Lymph % (Auto) 38.9 (20-40) % [place] % (Auto) 10.6 (2-11) % Eos % (Auto) 1.7 (0-4) % Baso % (Auto) 0.0 (0-2) % Lymph # (Auto) 1.6 (1.2-4.9) X10*3/uL [place] # (Auto) 0.4 (0.1-1.2) X10*3/uL Eos # (Auto) 0.1 (0.0-0.4) X10*3/uL Baso # (Auto) 0.0 (0.0-0.2) X10*3/uL Abs Immat Gran (auto) 0.00 (0.00-0.03) X10*3/uL Absolute Neuts (auto) 2.0 (2.0-8.3) x10*3/uL Absolute Nucleated RBC 0.000 (0.0-0.012) X10*3/uL Nucleated RBC % (auto) 0.0 (0.0-0.2) /100WBC Sodium 139 (135-145) mmol/L Potassium 3.9 (3.3-5.1) mmol/L Chloride 107 (96-108) mmol/L Carbon Dioxide 24 (22-29) mmol/L Anion Gap 12 (12-20) BUN 12 (9-16) mg/dL Creatinine 0.73 (0.5-1.4) mg/dL Estim Creat Clear Calc 68.8 Estimated GFR > 60 Random Glucose 80 (60-115) mg/dL Calcium 9.4 D (8.4-10.2) mg/dL Magnesium 2.2 (1.6-2.6) mg/dL Total Bilirubin 0.7 (0.0-1.0) mg/dL AST 31 (5-31) U/L ALT 11 (0-31) U/L Alkaline Phosphatase 69 (39-117) U/L Troponin I High Sens 4.7 (<3.5-17.0) ng/L Total Protein 8.4 H (6.5-8.0) g/dL Albumin 4.1 (3.5-5.0) g/dL Urine Color Yellow Urine Appearance Clear Urine pH >= 9.0 (5.0-9.0) Ur Specific [place] <= 1.005 (1.005-1.025) Urine Protein Negative (Neg-Trace) mg/dL Urine Glucose (UA) Negative (Negative) mg/dL Urine Ketones Negative (Negative) mg/dL Urine Blood Negative (Negative) Urine Nitrite Negative (Negative) Ur Leukocyte Esterase Negative (Negative) Urine RBC 0-2 (0-2) /HPF Urine WBC 0-5 (0-5) /HPF Ur Squamous Epith Cells 0-2 (0-2) /HPF Urine Bacteria None Seen (None Seen) Hyaline Casts 0-2 (0-2) /LPF Influenza Type A (PCR) NEGATIVE (Negative) Influenza Type B (PCR) NEGATIVE (Negative) RSV RNA Qual (PCR) NEGATIVE (Negative) SARS-CoV-2 RNA (RT-PCR) NEGATIVE (Negative) Independent Interpretation I performed an independent interpretation of an: EKG Discharge Plan Discharge Clinical Impression: Weakness Patient Disposition: Home, Self-Care Instructions: Weakness (ED) Additional Instructions: Please follow-up with your primary care physician tomorrow. If you have any worsening or new symptoms, please return to the emergency room or call 911 Prescriptions: No Action (DME) rollator See Rx Instructions .Route .MEDSUPPLY Qty: 1 0RF Rx Instructions: As directed miscellaneous medical supply [facility] miscellaneous Rx Instructions: Bed Assist Rail (DME) Portable Mobility Bed rail See Rx Instructions .Route .MEDSUPPLY Qty: 2 0RF Rx Instructions: As directed omeprazole 20 mg capsule,delayed release(DR/EC) 20 mg PO BID 90 Days Qty: 180 1RF diazepam 5 mg tablet 10 mg PO BID PRN ranolazine 500 mg tablet extended release 12 hr 500 mg PO BID Qty: 180 3RF Eliquis 5 mg tablet 5 mg PO BID 90 Days Qty: 180 3RF gabapentin 600 mg tablet 1,200 mg PO BEDTIME 90 Days Qty: 180 3RF morphine 15 mg tablet 15 mg PO Q12H PRN (Reason: pain) Qty: 6 0RF Rx Instructions: Partial Fill upon patient request. morphine 15 mg tablet 15 mg PO Q12H PRN (Reason: severe pain (scale score 7-10)) Qty: 6 0RF Rx Instructions: Partial Fill upon patient request. estradiol 0.075 mg/24 hr patch weekly 1 patch transdermal WE@0900 lamotrigine 200 mg tablet extended release 24hr 400 mg PO DAILY baclofen 20 mg tablet 20 mg PO Q4H 90 Days Qty: 540 3RF Gamunex-C 20 gram/200 mL (10 %) solution IV Valtoco 10 mg/spray (0.1 mL) spray,non-aerosol intranasal diazepam [Valium] 5 mg tablet 5 mg PO BID PRN ergocalciferol (vitamin D2) 1,250 mcg (50,000 unit) capsule 1,250 mcg PO Q2W 90 Days Qty: 7 3RF dicyclomine 10 mg capsule 10 mg PO QID epinephrine 0.3 mg/0.3 mL auto-injector 0.3 mg IM Q10M PRN (Reason: anaphylaxis) Qty: 2 1RF Rx Instructions: for 2 doses Gamunex-C 5 gram/50 mL (10 %) solution IV Print Language: Swedish
[2025-04-23 01:32] VITALS: BP 113/56; PULSE 79
[2025-04-23 01:33] VITALS: BP 117/66; PULSE 87
[2025-04-23 01:35] VITALS: BP 106/76; PULSE 93
[2025-04-23 02:18] LABS: Resp Syncy Virus RNA Qual PCR NEGATIVE (Negative); SARS COV2 PCR INHOUSE NEGATIVE (Negative)
[2025-04-23 02:44] VITALS: BP 102/48; PULSE 90; RESP 16; TEMP 36.6; O2SAT 97
[2025-04-23 03:13] VITALS: BP 102/48; PULSE 90; RESP 16; TEMP 36.6; O2SAT 97
== END 2025-04-23 03:14 | disposition home or self-care (01) ==
PROVIDERS: Emergency Provider Emergency Medicine; PCP Internal Medicine
DX: R53.1 Weakness (principal); R06.02 Shortness of breath; Z03.818 Encounter for observation for suspected exposure to other biological agents ruled out; I44.0 Atrioventricular block, first degree; I10 Essential (primary) hypertension; E78.5 Hyperlipidemia, unspecified; Z87.891 Personal history of nicotine dependence
CPT/HCPCS: 36415; 80053; 81001; 83735; 84484; 85025; 87637; 93005; 99283; 99285

== ENCOUNTER → 2025-04-22 21:22 | Outpatient (BNV) | payer MEDICARE, OTHER, MEDICAID, SELFPAY | PROVIDERS: Emergency Provider Emergency Medicine; PCP Internal Medicine; Visit Provider Internal Medicine Cardiovascular Disease | DX: I44.0 Atrioventricular block, first degree (principal) | CPT/HCPCS: 93010 ==

== ENCOUNTER 2025-04-26 10:52 | Outpatient (REF) | payer MEDICARE, OTHER, MEDICAID, SELFPAY ==
--- NOTE | 2025-04-26 10:57 | PFT_ITS ---
Indication: Dyspnea Spirometry FEV1 to FVC 69% pre bronchodilators and 73% post bronchodilators; FEV1 1.87 L; FVC 2.56 L. No significant response to bronchodilators noted. To note the FEF 2570 551% predicted Lung Volumes Total lung capacity 87% predicted; residual volume 91% predicted Diffusion Capacity DLCO 76% predicted Methacholine Challenge [] Flow Volume Loops Normal in appearance MVV 74% predicted Comparisons None Interpretation There appears to be a partially reversible obstructive ventilatory defects suggestive of asthma. No significant response to bronchodilators noted. Evidence of small airways disease also suggestive of asthma. Lung volumes are normal. The patient does have a mild diffusion impairment. Clinical correlation warranted. MTDD
[2025-04-26 11:34] VITALS: PULSE 70
--- OUTSIDE RECORDS SUMMARY | 2025-04-26 12:13 | XMS_ITS | Clinical Summary ---
Author Organization [facility] Prior to 10/02/24 Address [address] [place] [address] Care Team Providers Care Ross Furnace Operator Name Role Phone Gustavo Suarez DO Primary Care Provider [phone] Allergies Active Allergy Reactions Criticality Noted Date [...] 5 12/01/2023 Active ergocalciferol (VITAMIN D2) capsule 47389 units Take 1 capsule (50,000 Units total) [...] age to complete this topic Care Teams Ross Furnace Operator Relationship Specialty Start Date End Date Gustavo Suarez DO [address] [place] [phone] PCP - General Internal Medicine 06/23/18
--- OUTSIDE RECORDS SUMMARY | 2025-04-26 12:13 | XMS_ITS | Encounter Summary ---
Author Organization [facility] Address [address] [place] [phone] Care Team Providers Care Lead Pharmacy Technician Name Role Phone No, Pcp (Do Not Change Name) Primary Care Provid er Unavailable Encounter Details Date Type Department Care Team (Late st Contact Info) Description 10/20/2024 Scanned Document INTERFACE DEFAULT [address] [place] [phone] System, Provider Not In Social History Tobacco [...] EST Office Visit [facility] [address] [place] [phone] Richard Lewis MD [address] [place] [phone] documented as of this encounter Visit Diagnoses Not on filedocumented in this encounter Additional Health Concerns Assessment Noted Time PHQ-9 Depression Total Score: 0 01/27/20 24 8:26 AM EDT documented as of this encounter Care Teams Lead Pharmacy Technician Relationship Specialty Start Date End Date No, Pcp (Do Not Change Name) PCP - General 07/19/24 documented as of this encounter
--- OUTSIDE RECORDS SUMMARY | 2025-04-26 12:13 | XMS_ITS | Encounter Summary ---
Author Organization [facility] Address [address] [place] [address] Phone Care Team Providers Care Emergency Medicine Specialist Name Role Phone Daniela Gustavo Denise BOYD Primary Care Provider Ellie Kan PA Unavailable Reason for Visit * Reason Comments Medication Refill Encounter Details Date Type Department Care Team (Late st Contact Info) Description 04/23/2025 Refill [facility] [address] [place] [address] Monique Akers MD [address] [facility] [address] [place] [address] [email or web address] Medication Refill Social History Tobacco Use Types Packs/Day Years Used Date Smoking Tobacco: Former Cigarettes Q uit: 1993 Smokeless Tobacco: Never Alcohol Use Standard Drinks/Week [...] as of this encounter Progress Notes * Macho Hull MA - 04/25/2025 9:35 AM EST Rx Care Gap Status - Instructions for Clinical Staff (prescriber discretion applies): > Mismatch review guide > No future appt: Please schedule if appropriate. Visit Info Last visit: 07/14/2024 Bella Rizo MD - Obstetrics and Gynecology [facility] > Requested f/u: Not specified Upcoming visit: None ACTIONS TAKEN BY Macho Hull MA - Visit needed - Scheduled; sent msg to FD; and/or reminded pt. Hormone Replacement Therapy Rx Protocol - estradiol Criteria met; renew for up to 12 months. Visit in the past 14 months: Yes documented in this encounter Plan of Treatment Not on file documented as of this encounter Visit Diagnoses Diagnosis Menopausal syndrome Symptomatic menopausal or female climacteric states documented in this encounter Care Teams Emergency Medicine Specialist Relationship Specialty Start Date End Date Gustavo Suarez DO [address] [place] [phone] PCP - General Internal Medicine 02/16/18 Ellie Kan PA [address] [place] [address] Physician Tread Tuber Machine Operator 07/14/24 documented as of this encounter Additional Source Comments The information contained in this document represents components of the legal health record. It is not the complete legal health record.[facility]
--- OUTSIDE RECORDS SUMMARY | 2025-04-26 12:13 | XMS_ITS | Encounter Summary ---
Author Organization [facility] Address [address] [place] [phone] Phone Care Team Providers Care Data Integration Developer Name Role Phone Gustavo Suarez DO Primary Care Provider Ellie Kan PA Unavailable [phone] Reason for Visit * Reason Onset Date Comments Rx to different pharmacy 03/08/2020 Encounter Details Date Type Department Care Team (Late st Contact Info) Description 03/08/2020 Telephone [facility] [address] [place] [address] Gustavo Noe MD [address] [place] [address] Rx to different pharmacy Social History Tobacco [...] stating rx for patch [facility] go to [facility]/[place] - documented in this encounter Plan of Treatment Not on file documented as of this encounter Visit Diagnoses Diagnosis Menopausal syndrome- Primary Symptomatic menopausal or female climacteric states documented in this encounter Care Teams Data Integration Developer Relationship Specialty Start Date End Date Gustavo Suarez DO [address] [place] [phone] PCP - General Internal Medicine 02/16/18 Ellie Kan PA [address] [place] [address] Physician Property Analyst 07/14/24 documented as of this encounter Additional Source Comments The information contained in this document represents components of the legal health record. It is not the complete legal health record.[facility]
--- OUTSIDE RECORDS SUMMARY | 2025-04-26 12:13 | XMS_ITS | Data Portability ---
Author Organization [place] - [facility], Allergy Address [address] [place] [phone] Assessment No assessment recorded. 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 - [facility] 10:19:25 Gastroeso phageal reflux disease without esophagit is 467709251 Active 2023 GISELA PRUETT MD [address] [facility],[place] [address], [facility] [place], [address] , [facility] - [facility] 10:19:44 Chronic hoarsenes s 22858261711 05 Active 2023 GISELA PRUETT MD [address] [facility],[place] [address], [facility] [place], [address] , [facility] - [facility] [place] 10:20:46 Problem Notes None recorded. Procedures Surgical History Date Name Laterality Status Provider Name and Address Organization Details Recorded Time 11/11/2023 FFL_RE completed GISELA PRUETT MD [address] [facility],[place] [address], [place], [address], [facility] - [facility] 11/11/2023 10:26:08 Imaging Results None recorded. Procedure Notes None recorded. Medical Equipment None Reported. Allergies Allergen ID Allergen Name Allergen Category Reaction Reaction Severity Criticality Documentation Date Start Date Code Code System Note Provider Name and Address Organization Details Recorded Time 36914 Product containin g penicilli n (product) medicatio n hives Not available Not available 09/16/2023 91350 8001 SNOMED React ion: skin rashe s, hives ;; Not Available [facility] 00:48:35 76933 codeine medicatio n nausea Not available Not available 09/16/2023 2670 RxNorm React ion: Stoma ch cramp s; Not Available [facility] 00:48:40 33190 acetamino phen / oxycodone medicatio n nausea Not available Not available 09/16/2023 95753 3 RxNorm React ion: nause a;; Not Available [facility] 4 00:48:40 Medications Name Sig [...] 20 mg tablet active Medicatio n ID: [id number] Br and Name: atorvasta tin Send Method: [...] release 24 hr active Medicatio n ID: [id number] Br and Name: isosorbid e mononitra te [...] 300 mg capsule active Medicatio n ID: [id number] and Name: gabapenti n Send Method: E-Prescri [...] 25 mg tablet active Medicatio n ID: [id number] Br and Name: metoprolo l tartrate Send [...] Updated DateTime 11/11/2023 160.02 cm 21.8 kg/m2 89038.86 g Delores Mejía [place] - [facility] [...] Note 6977 GISELA PRUETT MD [facility] [address] [address] 11/11/2023 09:08:06 11/11/2023 10:28:26 Dysphagia 69610320 R13.10 see below Gastroesop hageal reflux disease without esophagitis 089555736 K21.9 continue omeprazole per prescribin g provider Chronic hoarseness 02283 27604 105 R49.0 Her right vocal cord is sluggish. No glottic gap. Likely recovering after ACDF. MBS showed a safe swallow. I suspect her neuromuscu lar disorder may contribute to her dysphagia as well and I recommend she keep f/u with her neurologis ts at [place]. No ENT interventi on needed. No tumors [...] Name 11/19/2024 2 [employer] - [employer] (PPO) [id number] Kristopher Bertin [id number] Ying Denton 11/19/2024 1 [employer] (MEDICARE REPLACEMENT/ ADVANTAGE - PPO) [id number] Ying A Bertin [id number] Ying Denton 11/19/2024 2 [employer] - [facility] BENEFIT PLAN MANAGEMENT (PPO) Ying Denton [id number] Ying Denton Notes Date Note Type Note [...] swallowing. She is being worked up at [facility] for a neurologic disorder. She has muscle cramping and she can't use her left arm well. On omeprazole for GERD. Hx of ACDF. She has had some voice trouble since with difficulty projecting. GISELA PRUETT MD [address] [place] [address], [place], [address], [place] - [facility] 11/11/2023 10:28:19 OBGyn Episode No OBEpisode recorded.
--- OUTSIDE RECORDS SUMMARY | 2025-04-26 12:13 | XMS_ITS | Encounter Summary ---
Author Organization [facility] Address [address] [place] [phone] Care Team Providers Care Desizing Pad Operator Name Role Phone No, Pcp (Do Not Change Name) Primary Care Provid er Unavailable Encounter Details Date Type Department Care Team (Late st Contact Info) Description 03/08/2024 Scanned Document INTERFACE DEFAULT [address] [place] [address] System, Provider Not In Social History [...] EST Office Visit [facility] [address] [place] [address] Richard Lewis MD [address] [place] [address] documented as of this encounter Procedures Procedure [...] documented as of this encounter Care Teams Desizing Pad Operator Relationship Specialty Start Date End Date No, Pcp (Do Not Change Name) PCP - General 07/19/24 documented as of this encounter
--- OUTSIDE RECORDS SUMMARY | 2025-04-26 12:13 | XMS_ITS | Encounter Summary ---
Author Organization [facility] and [facility] Address [address] [place] [phone] Care Team Providers Care Meat Cooler Name Role Phone No, Pcp (Do Not Change Name) Primary Care Provid er Unavailable Reason for Visit * Reason Onset Date Comments Other 04/25/2025 Encounter Details Date Type Department Care Team (Late st Contact Info) Description 04/25/2025 Telephone [facility] [address] [place] [address] Richard Lewis MD [address] [place] [phone] Other Social History Tobacco Use Types Packs/Day [...] encounter Miscellaneous Notes * Telephone Encounter - Lianne Palomo, PCT - 04/25/2025 12:29 PM EST Patient is letting her provider know, that her health insurance is not changing [phone] documented in this encounter Plan of Treatment Upcoming Encounters Date Type Department Care Team (Late st Contact Info) Description 05/31/2025 3:30 PM EST Office Visit [facility] [address] [place] [phone] Richard Lewis MD [address] [place] [address] documented as of this encounter Visit Diagnoses Not on filedocumented in this encounter Additional Health Concerns Assessment Noted Time PHQ-9 Depression Total Score: 0 01/27/20 24 8:26 AM EDT documented as of this encounter Care Teams Meat Cooler Relationship Specialty Start Date End Date No, Pcp (Do Not Change Name) PCP - General 07/19/24 documented as of this encounter
--- OUTSIDE RECORDS SUMMARY | 2025-04-26 12:13 | XMS_ITS | Clinical Summary ---
Author Organization [facility] Address [address] [place] [address] Care Team Providers Care Grab Jack Worker Name Role Phone Gustavo Suarez Primary Care [...] patient's age to complete this topic Insurance [facility] AETNA [facility] * Guarantor: DANIELLE DENTON Account Type Relation to Patient Date of Phone Billing Address Personal/Family 1960 Care Teams Grab Jack Worker Relationship Specialty Start Date End Date Gustavo Suarez [address] [place] [address] PCP - General Internal Medicine 11/13/22
--- OUTSIDE RECORDS SUMMARY | 2025-04-26 12:13 | XMS_ITS | Encounter Summary ---
Author Organization [facility] and [facility] Address [address] [place] [address] Care Team Providers Care Preprint Analyst Name Role Phone No, Pcp (Do Not Change Name) Primary Care Provid er Unavailable Encounter Details Date Type Department Care Team (Late st Contact Info) Description 10/10/2023 Transcribed Orders CARE CENTER SCHEDULING [address] [place] [address] Referral, Self Social History Tobacco [...] Description 05/31/2025 3:30 PM EST Office Visit [facility]Immunology [address] [address] Richard Lewis MD [address] [place] [address] documented as of this encounter Visit Diagnoses Not on filedocumented in this encounter Additional Health Concerns Assessment Noted Time PHQ-9 Depression Total Score: 0 09/24/19 24 9:25 AM EDT documented as of this encounter Care Teams Preprint Analyst Relationship Specialty Start Date End Date No, Pcp (Do Not Change Name) PCP - General 07/19/24 documented as of this encounter
--- OUTSIDE RECORDS SUMMARY | 2025-04-26 12:13 | XMS_ITS | Encounter Summary ---
Author Organization [facility] and [facility] Address [address] [place] [phone] Care Team Providers Care Hardness Inspector Name Role Phone No, Pcp (Do Not Change Name) Primary Care Provid er Unavailable Encounter Details Date Type Department Care Team (Late st Contact Info) Description 01/20/2025 Scanned Document INTERFACE DEFAULT [address] [place] [phone] System, Provider Not In Social History Tobacco [...] EST Office Visit [facility] [address] [place] [address] Richard Lewis MD [address] [place] [phone] documented as of this encounter Visit Diagnoses Not on filedocumented in this encounter Additional Health Concerns Assessment Noted Time PHQ-9 Depression Total Score: 0 01/27/20 24 8:26 AM EDT documented as of this encounter Care Teams Hardness Inspector Relationship Specialty Start Date End Date No, Pcp (Do Not Change Name) PCP - General 07/19/24 documented as of this encounter
--- OUTSIDE RECORDS SUMMARY | 2025-04-26 12:13 | XMS_ITS | Clinical Summary ---
Author Organization [facility] Address [address] [place] [address] Phone Care Team Providers Care Reinforcing Steel Worker Wire Mesh Name Role Phone Clarence Leiva MD Primary Care Provider [phone] Allergies Active Allergy Reactions Criticality Noted Date [...] artery disease) 06/09/2024 Non-ST elevation UT (NSTEMI) 06/09/2024 Dizziness 04/14/2024 Assessment & Plan [...] this time she is working with a oyster grader and will continue to work on dietary [...] mmol/L LAB CHEMISTRY METHOD 04/05/2024 3:28 PM [facility] Potassium 3.8 3.5 - 5.5 mmol/L LAB CHEMISTRY METHOD 04/05/2024 3:28 PM [facility] Chloride 111(H) 96 - 110 mmol/L LAB CHEMISTRY METHOD 04/05/2024 3:28 PM [facility] CO2 26 21 - 32 mmol/L LAB CHEMISTRY METHOD 04/05/2024 3:28 PM [facility] Anion Gap 8 3 - 11 LAB CHEMISTRY METHOD 04/05/2024 3:28 PM [facility] Glucose 84 70 - 100 mg/dL LAB CHEMISTRY METHOD 04/05/2024 3:28 PM [facility] BUN 9 5 - 25 mg/dL LAB CHEMISTRY METHOD 04/05/2024 3:28 PM [facility] Creatinine 0.63 0.50 - 1.10 mg/dL LAB CHEMISTRY METHOD 04/05/2024 3:28 PM [facility] eGFR 99 >=60 mL/min/1. 73m2 LAB CHEMISTRY METHOD 04/05/2024 3:28 PM [facility] Comment:Calculation based on the Chronic Kidney Disease Epidemiology Collaboration (CKD-EPI) equation refit without adjustment for race. BUN/Creatinine Ratio 14.3 LAB CHEMISTRY METHOD 04/05/2024 3:28 PM [facility] Calcium 9.5 8.5 - 10.5 mg/dL LAB CHEMISTRY METHOD 04/05/2024 3:28 PM [facility] AST (SGOT) 24 10 - 42 unit/L LAB CHEMISTRY METHOD 04/05/2024 3:28 PM [facility] ALT (SGPT) 19 10 - 60 unit/L LAB CHEMISTRY METHOD 04/05/2024 3:28 PM [facility] Alkaline Phosphatase 65 42 - 121 unit/L LAB CHEMISTRY METHOD 04/05/2024 3:28 PM EST [facility] Total Protein 6.6 6.0 - 8.0 g/dL LAB CHEMISTRY METHOD 04/05/2024 3:28 PM EST [facility] Albumin 3.7 3.2 - 5.0 g/dL LAB CHEMISTRY METHOD 04/05/2024 3:28 PM EST [facility] Total Bilirubin 0.6 0.0 - 1.4 mg/dL LAB CHEMISTRY METHOD 04/05/2024 3:28 PM EST [facility] Blood Venous blood specimen / Unknown Venipuncture / Unknown 04/05/2024 2:46 PM EST 04/05/2024 2:59 PM EST us Enrique Moyer MD LAB BLOOD ORDERABLES Final Result [facility] [address] [place] [address], from Last 3 Months or Most Recently Relevant to Health Maintenance Insurance [employer] MEDICARE ADVANTAGE [facility] Advance Directives Documents on File Type Date Recorded Patient Career Services Officer Expl anation Health Care Decision (hx) 02/15/2022 AD SPAULDING DIRECTIVE Health Care Decision (hx) 02/15/2022 AD SPAULDING DIRECTIVE Health Care Decision (hx) 02/15/2022 AD SPAULDING DIRECTIVE Care Teams Reinforcing Steel Worker Wire Mesh Relationship Specialty Start Date End Date Clarence Leiva MD [facility] [address] [place] [address] [address] [place] [address] PCP - General Internal Medicine 08/02/24
--- OUTSIDE RECORDS SUMMARY | 2025-04-26 12:13 | XMS_ITS | Encounter Summary ---
Author Organization [facility] and [facility] Address [address] [place] [phone] Care Team Providers Care Township Clerk Name Role Phone No, Pcp (Do Not Change Name) Primary Care Provid er Unavailable Encounter Details Date Type Department Care Team (Late st Contact Info) Description 09/24/2024 Documentation [facility] [address] [place] [phone] Richard Lewis MD [address] [place] [address] Social History Tobacco Use Types [...] [address] [facility] 2nd Floor [place], [place] [phone] Richard Lewis MD [address] [place] [phone] documented as of this encounter Visit Diagnoses Not on filedocumented in this encounter Additional Health Concerns Assessment Noted Time PHQ-9 Depression Total Score: 0 01/27/20 8:26 AM EDT documented as of this encounter Care Teams Township Clerk Relationship Specialty Start Date End Date No, Pcp (Do Not Change Name) PCP - General 07/19/24 documented as of this encounter
--- OUTSIDE RECORDS SUMMARY | 2025-04-26 12:13 | XMS_ITS | Encounter Summary ---
Author Organization [facility] Address [address] [place] [phone] Care Team Providers Care Dimension Mill Worker Name Role Phone No, Pcp (Do Not Change Name) Primary Care Provid er Unavailable Encounter Details Date Type Department Care Team (Late st Contact Info) Description 09/30/2024 Scanned Document INTERFACE DEFAULT [address] [place] [phone] System, Provider Not In Social History Tobacco [...] EST Office Visit [facility] [address] [place] [address] Richard Lewis MD [address] [place] [phone] documented as of this encounter Visit Diagnoses Not on filedocumented in this encounter Additional Health Concerns Assessment Noted Time PHQ-9 Depression Total Score: 0 01/27/20 24 8:26 AM EDT documented as of this encounter Care Teams Dimension Mill Worker Relationship Specialty Start Date End Date No, Pcp (Do Not Change Name) PCP - General 07/19/24 documented as of this encounter
--- OUTSIDE RECORDS SUMMARY | 2025-04-26 12:13 | XMS_ITS | Clinical Summary ---
Author Organization [address] Address [address] [place] [phone] Care Team Providers Care M1 Armor Crewman Name Role Phone No, Pcp (Do Not [...] 05/2021 Penicillins Hives,Other (See Comments),Rash High 07/09/2017 Dyilxgn-Pim-Wli Reductase Inhibitors Other (See Comments) Medium 07/19/2024 [...] Encounters Date Type Department Care Team Description 04/25/2025 Telephone [facility] [address] [place] [address] Richard Lewis MD Other 04/19/2025 Telephone [facility] [address] [place] [address] Richard Lewis MD Other 03/16/2025 Telephone [facility] [address] [place] [address] Richard Lewis MD Triage 03/08/2025 Telephone [facility] [address] [place] [address] Richard Lewis MD Other 03/02/2025 Telephone [facility] [address] [place] [address] Richard Lewis MD Triage 01/28/2025 Telephone [facility] [address] [place] [address] Richard Lewis MD Other from Last 3 [...] Office Visit [facility] [address] [place] [phone] Richard Lewis MD [address] [place] [phone] Health Maintenance Due Date Last Done Comments [...] complete this topic Insurance QIANA BIRD [facility] MEDICARE [facility] MEDICARE [facility] MEDICARE Care Teams M1 Armor Crewman Relationship Specialty Start Date End Date No, Pcp (Do Not Change Name) PCP - General 07/19/24
--- OUTSIDE RECORDS SUMMARY | 2025-04-26 12:13 | XMS_ITS | Encounter Summary ---
Author Organization [facility] and [facility] Address [address] [place] [phone] Care Team Providers Care Beading Installer Name Role Phone No, Pcp (Do Not Change Name) Primary Care Provid er Unavailable Encounter Details Date Type Department Care Team (Late st Contact Info) Description 01/19/2025 Scanned Document INTERFACE DEFAULT [address] [place] [phone] System, Provider Not In Social History Tobacco [...] Office Visit [facility] [address] [place] [address] Richard Lewis MD [address] [place] [phone] documented as of this encounter Visit Diagnoses Not on filedocumented in this encounter Additional Health Concerns Assessment Noted Time PHQ-9 Depression Total Score: 0 01/27/20 24 8:26 AM EDT documented as of this encounter Care Teams Beading Installer Relationship Specialty Start Date End Date No, Pcp (Do Not Change Name) PCP - General 07/19/24 documented as of this encounter
--- OUTSIDE RECORDS SUMMARY | 2025-04-26 12:13 | XMS_ITS | Clinical Summary ---
Author Organization [facility] Address [address] [facility] [address] [place] [address] Phone Care Team Providers Care Cutter First Name Role Phone Daniela Gustavo Denise BOYD Primary Care Provider [phone] Allergies Active Allergy Reactions Criticality Noted Date [...] formulations. However, I do believe that her mortician investigator should weigh in on this as well. Therefore, I will send a copy of today's note. Her current dose of estradiol is 0 0.075 mg per 24 hours changed weekly. I cannot find in the chart where her previous dose was but according to the notes it was decreased to this current dose. If her mortician investigator is in agreement, she will call when [...] Visit [facility] [address] [address] Enrique Guido MD [address] [address] Health Maintenance Due Date Last [...] this topic Insurance Aetna MCR Adv PPO ([id number]) Aetna MCR Adv PPO ([id number]) C[employer] Open Access ([id number]) Care Teams Cutter First Relationship Specialty Start Date End Date Gustavo Suarez DO [address] [place] [address] PCP - General 05/15/20
--- OUTSIDE RECORDS SUMMARY | 2025-04-26 12:13 | XMS_ITS | Encounter Summary ---
Author Organization [facility] Address [address] [place] [phone] Care Team Providers Care Longwall Foreman Name Role Phone No, Pcp (Do Not Change Name) Primary Care Provid er Unavailable Reason for Visit * Reason Onset Date Comments Triage 10/10/2023 Encounter Details Date Type Department Care Team (Late st Contact Info) Description 10/10/2023 Telephone [facility] [address] [place] [address] Richard Lewis MD [address] [place] [phone] Triage Social History Tobacco Use Types Packs/Day [...] hip replacement surgery in Feb 2022 at [facility] and four days s/p surgery, she experienced full body paresis from her neck to her feet. 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 She needed to go to rehab after this event as she required a wheelchair. She occasionally experiences blurry vision but follows regularly with her human services case manager. * Telephone Encounter - Katarina Handy - 10/10/2023 11:04 AM EDT Copied from [facility] #[id number]. Topic: General Message - [facility] >> Oct 10, 2023 11:00 AM Katarina Shukla wrote: [facility] CENTER MESSAGE Time of call: 11:00 AM [...] urgently? no Best telephone number for callback: [phone] Best time to return call: any Permission to leave message: yes Katarina Handy CARE Center Furnace Checker documented in this encounter Plan of Treatment Upcoming Encounters Date Type Department Care Team (Late st Contact Info) Description 05/31/2025 3:30 PM EST Office Visit [facility] [address] [address] Richard Lewis MD [address] [place] [address] documented as of this encounter Visit Diagnoses Not on filedocumented in this encounter Additional Health Concerns Assessment Noted Time PHQ-9 Depression Total Score: 0 09/24/19 24 9:25 AM EDT documented as of this encounter Care Teams Longwall Foreman Relationship Specialty Start Date End Date No, Pcp (Do Not Change Name) PCP - General 07/19/24 documented as of this encounter
--- OUTSIDE RECORDS SUMMARY | 2025-04-26 12:13 | XMS_ITS | Clinical Summary ---
Author Organization [facility] Address [address] [place] [address] Phone Care Team Providers Care Drug Safety Data Management Specialist Name Role Phone Gustavo Suarez DO Primary Care Provider [phone] Ellie Kan PA Unavailable [phone] Allergies Active Allergy Reactions Criticality Noted Date [...] MG tablet Take 20 mg by mouth. 09/30/19 21 Active apixaban (ELIQUIS) 5 mg tablet Take by mouth. 03/15/20 Active baclofen (LIORESAL) 10 MG tablet Take 20 mg by mouth. 02/03/20 Active ergocalciferol (VITAMIN D2) 50,000 unit capsule Take 50,000 Int'l Units by mouth. 11/28/19 Active docusate sodium (COLACE) 100 MG capsule Take 100 mg by mouth 2 (two) times a day. 04/10/20 23 Active LORazepam (ATIVAN) 2 MG tablet Take 2 mg by mouth every 6 (six) hours as needed. Active diazePAM (VALIUM) 5 MG tablet Take 5 mg by mouth 3 (three) times a day. Active dicyclomine (BENTYL) 10 MG capsule Take 10 mg by mouth 4 (four) times a day before meals and nightly. Active ranolazine (RANEXA) 500 MG 12 hr tablet Take 500 mg by mouth 2 (two) times a day. 04/07/20 24 Active valACYclovir (VALTREX) 500 MG tabletIndicati ons:History of herpes genitalis Take 1 tablet (500 mg total) by mouth 2 (two) times a day. 180 tablet 1 12/23/19 25 Active estradioL (CLIMARA) 0.075 mg/24 hrIndications: Menopausal syndrome APPLY 1 PATCH TOPICALLY TO THE SKIN 1 TIME A WEEK 12 patch 3 04/25/20 25 Active estradioL (CLIMARA) 0.075 mg/24 hrIndications: Menopausal syndrome Place 1 patch onto the skin once a week. 12 patch 3 05/25/19 25 025 Discontinued Active Problems Problem Noted Date Diagnosed Date [...] that she has discussed this with her psychiatry instructor who thought that it was reasonable to continue with the estradiol patch. She is on an anticoagulant which would decrease the risk of stroke associated with the VTE. I will see if I can contact her psychiatry instructor for some further guidance and also do [...] formulations. However, I do believe that her psychiatry instructor should weigh in on this as well. Therefore, I will send a copy of today's note. Her current dose of estradiol is 0 0.075 mg per 24 hours changed weekly. I cannot find in the chart where her previous dose was but according to the notes it was decreased to this current dose. If her psychiatry instructor is in agreement, she will call when she needs a refill. Resolved Problems Problem Noted Date Diagnosed Date Resolved Date Cyst of right ovary 07/14/2024 07/15/19 25 Overview (07/14/2024): 3 small follicles July 2023 each < 1cm, stable or smaller than 2023 Assessment & Plan (07/14/2024 6:26 PM EDT): No need for ongoing imaging Encounters Date Type Department Care Team Description 04/23/2025 Refill [facility] [address] [place] [address] Monique Akers MD Medication Refill from Last 3 Months Family History Medical [...] Maintenance Insurance [facility] A [facility] [place] [address] [facility] Address: [facility] [id number] [place] [phone] [place] [address] MEDICARE PART A & B AET[employer] O MEDICARE REPLACEMENT CIGNA [facility] Address: [address] [address] MEDICARE PART A [place] [id number] A[employer] [place] [address] MEDICARE PART A & B [facility] [place] [address] MEDICARE PART A & B [facility] MEDICARE REPLACEMENT CIGNA [facility] Address: [phone] [place] [phone] MEDICARE PART A & B [employer]ET[employer] PPO MEDICARE REPLACEMENT MEDICARE PART A & B AET[employer] PPO MEDICARE REPLACEMENT CIGNA [facility] Address: [facility] [id number] [place] [phone] [place] [address] MEDICARE PART A & B AET[employer] PPO MEDICARE REPLACEMENT CIGNA [facility] Address: [facility] [id number] [place] [phone] MEDICARE PART A & B AET[employer] PPO MEDICARE REPLACEMENT CIGNA [facility] Address: [address] [place] [address] Care Teams Drug Safety Data Management Specialist Relationship Specialty Start Date End Date Gustavo Suarez DO [address] [place] [phone] PCP - General Internal Medicine 02/16/18 Ellie Kan PA [address] [place] [address] Physician Senior Field Service Engineer 07/14/24 Additional Source Comments The information contained in this document represents components of the legal health record. It is not the complete legal health record.[facility]
--- OUTSIDE RECORDS SUMMARY | 2025-04-26 12:13 | XMS_ITS | Encounter Summary ---
Author Organization [facility] and [facility] Address [address] [place] [phone] Care Team Providers Care Hematology Specialist Name Role Phone No, Pcp (Do Not Change Name) Primary Care Provid er Unavailable Reason for Visit * Reason Onset Date Comments Triage 09/29/2024 ? Medication den ial Encounter Details Date Type Department Care Team (Late st Contact Info) Description 09/29/2024 Telephone [facility] 6 [facility] [address] [place] [address] Richard Lewis MD [address] [place] [address] Triage (? Medication denial ) [...] Office Visit [facility] [address] [place] [address] [phone] Richard Lewis MD [address] [place] [address] documented as of this encounter Visit Diagnoses Not on filedocumented in this encounter Additional Health Concerns Assessment Noted Time PHQ-9 Depression Total Score: 0 01/27/20 24 8:26 AM EDT documented as of this encounter Care Teams Hematology Specialist Relationship Specialty Start Date End Date No, Pcp (Do Not Change Name) PCP - General 07/19/24 documented as of this encounter
--- OUTSIDE RECORDS SUMMARY | 2025-04-26 12:13 | XMS_ITS | Encounter Summary ---
Author Organization [facility] [employer] [facility] and [facility] Address [address] [place] [phone] Care Team Providers Care Wire Stripper Name Role Phone No, Pcp (Do Not Change Name) Primary Care Provid er Unavailable Encounter Details Date Type Department Care Team (Late st Contact Info) Description 08/08/2023 Scanned Document [facility] [address] [place] [phone] Marquita Gallegos MD [address] [place] [phone] Social History Tobacco Use Types Packs/Day [...] EST Office Visit [facility] [address] [place] [address] [phone] Richard Lewis MD [address] [place] [phone] documented as of this encounter Visit Diagnoses Not on filedocumented in this encounter Care Teams Wire Stripper Relationship Specialty Start Date End Date No, Pcp (Do Not Change Name) PCP - General 07/19/24 documented as of this encounter
--- OUTSIDE RECORDS SUMMARY | 2025-04-26 12:13 | XMS_ITS | Continuity of Care Document ---
Author Organization [facility] [address] [place] [address] Phone [phone] Care Team Providers Care Lone Lead Lineman Name Role Phone Gustavo Suarez M.D. Care Team Information Recei yadira [phone] Clarence Leiva MD Care Team Information R eceiver [phone] Problems Active Problems Provider Date Multinodular goiter [...] Apply 1 Patch Once A Week Unknown [id number] Tablets Take 1 Tablet By Mouth Twice Daily as Needed For Muscle Spasm Krystina Mendez, [employer] Oyjbzhpzf1zo Tablets Take half hs Unknow n Vitamin D (Ergocalciferol)1.25mg (14523 Ut) Capsules Take 1 Capsule By Mouth every other week Unknown [id number] Capsules DR Take 1 Capsule By Mouth Every Day 30 Minutes Before Breakfast Gustavo Suarez M.D. [id number] Tablets 300mg am, 300mg 2pm, 1200mg 8pm Unknown Rrvmpni1cj Tablets Take 1 Tablet By Mouth Twice Daily Linda Astudillo MD Lamotrigine AB240mb Tablets ER 24HR Take 2 Tablets By Mouth Every Day Unknown Methylphenidate AZI74fb Tablets Take 1 Tablet By Mouth Three Times Daily prn Unknown Valacyclovir [id number] Tablets Unknown Tizanidine HCL2mg Tablets Unknown Dicyclomine XVH51ve Capsules Take 1 Capsule By Mouth Four [...] presentation. This test was performed on the [employer] immunoassay system. Medical Devices Description No Information [...]
--- OUTSIDE RECORDS SUMMARY | 2025-04-26 12:14 | XMS_ITS | Encounter Summary ---
Author Organization [facility] and [facility] Address [address] [place] [phone] Care Team Providers Care Trade Union Secretary Name Role Phone No, Pcp (Do Not Change Name) Primary Care Provid er Unavailable Reason for Referral * Physical Medicine (Routine) - New Request Specialty Diagnoses / Procedures Referred By Maria Isabel shahid Referred To Contact Physical Therapy Diagnoses Weakness Muscle spasm Richard Lewis MD [address] [place] [address] Phone: tel: fax: Referral ID Status Reason Start Date Expiration Date Visits Requested Visits Authorized [id number] New Request Specialty Services Required 07/26/2024 07/26/2025 1 1 Reason for Visit * Reason Onset Date Comments Triage 07/26/2024 Increased muscle spasms Encounter Details Date Type Department Care Team (Late st Contact Info) Description 07/26/2024 Telephone [facility] [address] [address] Richard Lewis MD [address] [place] [address] Triage (Increased muscle spasms ) [...] Office Visit [facility] [address] [place] [address] Richard Lewis MD [address] [place] [address] Scheduled Referrals Name Type Priority [...] documented as of this encounter Care Teams Trade Union Secretary Relationship Specialty Start Date End Date No, Pcp (Do Not Change Name) PCP - General 07/19/24 documented as of this encounter
--- OUTSIDE RECORDS SUMMARY | 2025-04-26 12:14 | XMS_ITS | Encounter Summary ---
Author Organization [facility] and [facility] Address [address] [place] [phone] Care Team Providers Care Fiscal Manager Name Role Phone No, Pcp (Do Not Change Name) Primary Care Provid er Unavailable Encounter Details Date Type Department Care Team (Late st Contact Info) Description 06/09/2024 Scanned Document INTERFACE DEFAULT [address] [place] [address] System, Provider Not In Social History [...] EST Office Visit [facility] [address] [place] [address] Richard Lewis MD [address] [place] [address] documented as of this encounter Visit Diagnoses Not on filedocumented in this encounter Additional Health Concerns Assessment Noted Time PHQ-9 Depression Total Score: 0 01/27/20 8:26 AM EDT documented as of this encounter Care Teams Fiscal Manager Relationship Specialty Start Date End Date No, Pcp (Do Not Change Name) PCP - General 07/19/24 documented as of this encounter
--- OUTSIDE RECORDS SUMMARY | 2025-04-26 12:14 | XMS_ITS | Encounter Summary ---
Author Organization [facility] and [facility] Address [address] [place] [phone] Care Team Providers Care Automotive Engineer Name Role Phone No, Pcp (Do Not Change Name) Primary Care Provid er Unavailable Encounter Details Date Type Department Care Team (Late st Contact Info) Description 10/07/2024 Scanned Document INTERFACE DEFAULT [address] [place] [phone] System, Provider Not In Social History Tobacco [...] Office Visit [facility] [address] [place] [address] Richard Lewis MD [address] [place] [phone] documented as of this encounter Visit Diagnoses Not on filedocumented in this encounter Additional Health Concerns Assessment Noted Time PHQ-9 Depression Total Score: 0 01/27/20 24 8:26 AM EDT documented as of this encounter Care Teams Automotive Engineer Relationship Specialty Start Date End Date No, Pcp (Do Not Change Name) PCP - General 07/19/24 documented as of this encounter
--- OUTSIDE RECORDS SUMMARY | 2025-04-26 12:14 | XMS_ITS | Encounter Summary ---
Author Organization [facility] Address [address] [place] [phone] Care Team Providers Care Registrar Museum Name Role Phone No, Pcp (Do Not Change Name) Primary Care Provid er Unavailable Encounter Details Date Type Department Care Team (Late st Contact Info) Description 03/26/2024 Scanned Document INTERFACE DEFAULT [address] [place] [address] System, Provider Not In Social History [...] EST Office Visit [facility] [address] [place] [address] Richard Lewis MD [address] [place] [address] documented as of this encounter Visit Diagnoses Not on filedocumented in this encounter Additional Health Concerns Assessment Noted Time PHQ-9 Depression Total Score: 0 01/27/20 8:26 AM EDT documented as of this encounter Care Teams Registrar Museum Relationship Specialty Start Date End Date No, Pcp (Do Not Change Name) PCP - General 07/19/24 documented as of this encounter
== END 2025-04-26 10:53 | disposition home or self-care (01) ==
LOC: HO.RESP 10:52
PROVIDERS: PCP Physician Assistant Medical; Visit Provider Nurse Practitioner Family
DX: R06.00 Dyspnea, unspecified (principal)
CPT/HCPCS: 94060; 94640; 94727; 94729

== ENCOUNTER → 2025-04-26 10:57 | Outpatient (BNV) | payer MEDICARE, OTHER, MEDICAID, SELFPAY | PROVIDERS: PCP Physician Assistant Medical; Visit Provider Hospitalist | DX: R06.00 Dyspnea, unspecified (principal) | CPT/HCPCS: 94060; 94727; 94729 ==

== ENCOUNTER 2025-04-27 08:01 | Outpatient (REF) | payer MEDICARE, OTHER, MEDICAID, SELFPAY ==
--- OUTSIDE RECORDS SUMMARY | 2025-04-27 08:05 | XMS_ITS | Encounter Summary ---
Author Organization [facility] Address [address] [place] [address] Phone Care Team Providers Care Automobile Leasing Supervisor Name Role Phone Gustavo Suarez DO Primary Care Provider Ellie Kan PA Unavailable [phone] Reason for Visit * Reason Onset Date Comments Rx to different pharmacy 03/08/2020 Encounter Details Date Type Department Care Team (Late st Contact Info) Description 03/08/2020 Telephone [facility]stetrics and Gynecology Clinic [address] [place] [address] Gustavo Noe MD [address] [place] [address] Rx to different pharmacy Social History Tobacco [...] stating rx for patch [facility] - documented in this encounter Plan of Treatment Not on file documented as of this encounter Visit Diagnoses Diagnosis Menopausal syndrome- Primary Symptomatic menopausal or female climacteric states documented in this encounter Care Teams Automobile Leasing Supervisor Relationship Specialty Start Date End Date Gustavo Suarez DO [address] [place] [address] PCP - General Internal Medicine 02/16/18 Ellie Kan PA [address] [place] [address] Physician Purchasing And Claims Supervisor 07/14/24 documented as of this encounter Additional Source Comments The information contained in this document represents components of the legal health record. It is not the complete legal health record.[facility]
--- OUTSIDE RECORDS SUMMARY | 2025-04-27 08:05 | XMS_ITS | Encounter Summary ---
Author Organization [facility] Address [address] [place] [address] Phone Care Team Providers Care Spray Applicator Name Role Phone Daniela Gustavo Denise BOYD Primary Care Provider Ellie Kan PA Unavailable Reason for Visit * Reason Comments Medication Refill Encounter Details Date Type Department Care Team (Late st Contact Info) Description 04/23/2025 Refill [facility] [address] [place] [address] Monique Akers MD [address] [address] [email or web address] Medication Refill Social History Tobacco [...] MD - Obstetrics and Gynecology [facility] > Requested f/u: Not specified Upcoming visit: [...] states documented in this encounter Care Teams Spray Applicator Relationship Specialty Start Date End Date Gustavo Suarez DO [address] [place] [address] PCP - General Internal Medicine 02/16/18 Ellie Kan PA [address] [place] [phone] Physician Superintendent Communications 07/14/24 documented as of this encounter Additional Source Comments The information contained in this document represents components of the legal health record. It is not the complete legal health record.[facility]
--- OUTSIDE RECORDS SUMMARY | 2025-04-27 08:05 | XMS_ITS | Encounter Summary ---
Author Organization [facility] and [facility] Address [address] [place] [phone] Care Team Providers Care Sweep Molder Name Role Phone No, Pcp (Do Not Change Name) Primary Care Provid er Unavailable Reason for Visit * Reason Onset Date Comments Other 04/25/2025 Encounter Details Date Type Department Care Team (Late st Contact Info) Description 04/25/2025 Telephone [facility] [address] [place] [address] Richard Lewis MD [address] [place] [phone] Other Social History Tobacco Use Types Packs/Day [...] that her health insurance is not changing [phone] documented in this encounter Plan of Treatment Upcoming Encounters Date Type Department Care Team (Late st Contact Info) Description 05/31/2025 3:30 PM EST Office Visit [facility] [address] [place] [address] [phone] Richard Lewis MD [address] [place] [address] documented as of this encounter Visit Diagnoses Not on filedocumented in this encounter Additional Health Concerns Assessment Noted Time PHQ-9 Depression Total Score: 0 01/27/20 24 8:26 AM EDT documented as of this encounter Care Teams Sweep Molder Relationship Specialty Start Date End Date No, Pcp (Do Not Change Name) PCP - General 07/19/24 documented as of this encounter
--- OUTSIDE RECORDS SUMMARY | 2025-04-27 08:05 | XMS_ITS | Clinical Summary ---
Author Organization [facility] Address [address] [place] [address] Care Team Providers Care Extra Gang Supervisor Name Role Phone Gustavo Suarez Primary [...] patient's age to complete this topic Insurance [facility] [employer] * Guarantor: DANIELLE DENTON Account Type Relation to Patient Date of Phone Billing Address Personal/Family 1960 Care Teams Extra Gang Supervisor Relationship Specialty Start Date End Date Gustavo Suarez [address] [place] [address] PCP - General Internal Medicine 11/13/22
--- OUTSIDE RECORDS SUMMARY | 2025-04-27 08:05 | XMS_ITS | Encounter Summary ---
Author Organization [facility] and [facility] Address [address] [place] [phone] Care Team Providers Care Program Scheduler Name Role Phone No, Pcp (Do Not Change Name) Primary Care Provid er Unavailable Encounter Details Date Type Department Care Team (Late st Contact Info) Description 10/20/2024 Scanned Document INTERFACE DEFAULT [address] [place] [phone] System, Provider Not In Social History Tobacco [...] EST Office Visit [facility] [address] [place] [address] Richard Lewis MD [address] [place] [phone] documented as of this encounter Visit Diagnoses Not on filedocumented in this encounter Additional Health Concerns Assessment Noted Time PHQ-9 Depression Total Score: 0 01/27/20 24 8:26 AM EDT documented as of this encounter Care Teams Program Scheduler Relationship Specialty Start Date End Date No, Pcp (Do Not Change Name) PCP - General 07/19/24 documented as of this encounter
--- OUTSIDE RECORDS SUMMARY | 2025-04-27 08:05 | XMS_ITS | Encounter Summary ---
Author Organization [facility] and [facility] Address [address] [place] [phone] Care Team Providers Care Senior Research Engineer Name Role Phone No, Pcp (Do Not Change Name) Primary Care Provid er Unavailable Encounter Details Date Type Department Care Team (Late st Contact Info) Description 09/24/2024 Documentation [facility] [address] [place] [address] [phone] Richard Lewis MD [address] [place] [address] Social History Tobacco Use Types [...] Office Visit [facility] 6 [facility] 2nd Floor [place], [place] [phone] Richard Lewis MD [address] [place] [phone] documented as of this encounter Visit Diagnoses Not on filedocumented in this encounter Additional Health Concerns Assessment Noted Time PHQ-9 Depression Total Score: 0 01/27/20 8:26 AM EDT documented as of this encounter Care Teams Senior Research Engineer Relationship Specialty Start Date End Date No, Pcp (Do Not Change Name) PCP - General 07/19/24 documented as of this encounter
--- OUTSIDE RECORDS SUMMARY | 2025-04-27 08:05 | XMS_ITS | Encounter Summary ---
Author Organization [facility] and [facility] Address [address] [place] [phone] Care Team Providers Care Cyber Legal Advisor Name Role Phone No, Pcp (Do Not Change Name) Primary Care Provid er Unavailable Encounter Details Date Type Department Care Team (Late st Contact Info) Description 01/19/2025 Scanned Document INTERFACE DEFAULT [address] [place] [address] [phone] System, Provider Not In Social History Tobacco [...] EST Office Visit [facility] [address] [place] [address] Richard Lewis MD [address] [place] [phone] documented as of this encounter Visit Diagnoses Not on filedocumented in this encounter Additional Health Concerns Assessment Noted Time PHQ-9 Depression Total Score: 0 01/27/20 24 8:26 AM EDT documented as of this encounter Care Teams Cyber Legal Advisor Relationship Specialty Start Date End Date No, Pcp (Do Not Change Name) PCP - General 07/19/24 documented as of this encounter
--- OUTSIDE RECORDS SUMMARY | 2025-04-27 08:05 | XMS_ITS | Encounter Summary ---
Author Organization [facility] and [facility] Address [address] [place] [phone] Care Team Providers Care Managing Principal Name Role Phone No, Pcp (Do Not Change Name) Primary Care Provid er Unavailable Encounter Details Date Type Department Care Team (Late st Contact Info) Description 09/30/2024 Scanned Document INTERFACE DEFAULT [address] [place] [phone] System, Provider Not In Social History Tobacco [...] Office Visit [facility] [address] [place] [address] Richard Lewis MD [address] [place] [phone] documented as of this encounter Visit Diagnoses Not on filedocumented in this encounter Additional Health Concerns Assessment Noted Time PHQ-9 Depression Total Score: 0 01/27/20 24 8:26 AM EDT documented as of this encounter Care Teams Managing Principal Relationship Specialty Start Date End Date No, Pcp (Do Not Change Name) PCP - General 07/19/24 documented as of this encounter
--- OUTSIDE RECORDS SUMMARY | 2025-04-27 08:05 | XMS_ITS | Clinical Summary ---
Author Organization [facility] Address [address] [place] [address] Phone Care Team Providers Care Cottage Parent Name Role Phone Gustavo Suarez DO Primary Care Provider Ellie Kan PA Unavailable [phone] Allergies Active Allergy Reactions Criticality Noted Date [...] that she has discussed this with her cloth pattern maker who thought that it was reasonable to continue with the estradiol patch. She is on an anticoagulant which would decrease the risk of stroke associated with the VTE. I will see if I can contact her cloth pattern maker for some further guidance and also do [...] formulations. However, I do believe that her cloth pattern maker should weigh in on this as well. Therefore, I will send a copy of today's note. Her current dose of estradiol is 0 0.075 mg per 24 hours changed weekly. I cannot find in the chart where her previous dose was but according to the notes it was decreased to this current dose. If her cloth pattern maker is in agreement, she will call [...] Type Department Care Team Description 04/23/2025 Refill [facility] [address] [place] [address] Monique Akers MD Medication Refill from Last [...] Maintenance Insurance MEDICARE PART A [facility] [place] [address] TPA [place] [address] MEDICARE PART A & B AET[employer] O MEDICARE REPLACEMENT CIG[employer] TPA MEDICARE PART A & B Member Subscriber Plan / Payer (Ef fective 1993-Present) Name:Willa Dentonjairo Bedoya Member ID:[id number] Relation to Subscriber:Self Name:BertinWillaYing Elke Subscriber ID:[id number] Payer ID:[id number] Group ID:Not on file Type:Medicare Address: [facility] [address] [place] [address] [place] [address] AET[employer] [place] [address] MED[address] PART A & B [facility] [place] [address] MEDICARE PART A & B [facility] MEDICARE REPLACEMENT CIGNA TPA MEDICARE PART A & B AETNA PPO MEDICARE REPLACEMENT MEDICARE PART A & B AETNA PPO MEDICARE REPLACEMENT CIGNA [facility] [address] MEDICARE PART A & B AETNA PPO MEDICARE REPLACEMENT CIGNA TPA MEDICARE PART A & B AET[employer] PPO MEDICARE REPLACEMENT CIGNA TPA Care Teams Cottage Parent Relationship Specialty Start Date End Date Gustavo Suarez DO [address] [place] [address] PCP - General Internal Medicine 02/16/18 Ellie Kan PA [address] [place] [address] Physician Cement Worker 07/14/24 Additional Source Comments The information contained in this document represents components of the legal health record. It is not the complete legal health record.[facility]
--- OUTSIDE RECORDS SUMMARY | 2025-04-27 08:05 | XMS_ITS | Encounter Summary ---
Author Organization [facility] Address [address] [place] [address] Care Team Providers Care Licensed Loan Officer Assistant Name Role Phone No, Pcp (Do Not Change Name) Primary Care Provid er Unavailable Encounter Details Date Type Department Care Team (Late st Contact Info) Description 10/10/2023 Transcribed Orders [facility] SCHEDULING [address] [place] [address] Referral, Self Social History Tobacco [...] Description 05/31/2025 3:30 PM EST Office Visit [facility] Center & Neuro-Immunology [address] [address] Richard Lewis MD [address] [place] [address] documented as of this encounter Visit Diagnoses Not on filedocumented in this encounter Additional Health Concerns Assessment Noted Time PHQ-9 Depression Total Score: 0 09/24/19 24 9:25 AM EDT documented as of this encounter Care Teams Licensed Loan Officer Assistant Relationship Specialty Start Date End Date No, Pcp (Do Not Change Name) PCP - General 07/19/24 documented as of this encounter
--- OUTSIDE RECORDS SUMMARY | 2025-04-27 08:05 | XMS_ITS | Clinical Summary ---
Author Organization [facility] Prior to 10/02/24 Address [address] [place] [address] Care Team Providers Care Test Administrator Name Role Phone Gustavo Suarez DO Primary Care Provider [phone] Allergies Active Allergy Reactions Criticality Noted Date [...] 5 12/01/2023 Active ergocalciferol (VITAMIN D2) capsule 03885 units Take 1 capsule (50,000 Units total) [...] age to complete this topic Care Teams Test Administrator Relationship Specialty Start Date End Date Gustavo Suarez DO [address] [place] [phone] PCP - General Internal Medicine 06/23/18
--- OUTSIDE RECORDS SUMMARY | 2025-04-27 08:05 | XMS_ITS | Encounter Summary ---
Author Organization [facility] and [facility] Address [address] [place] [address] Care Team Providers Care Meter Tester Primary Name Role Phone No, Pcp (Do Not Change Name) Primary Care Provid er Unavailable Encounter Details Date Type Department Care Team (Late st Contact Info) Description 08/08/2023 Scanned Document [facility] [address] [place] [phone] Marquita Gallegos MD [address] [place] [phone] Social History Tobacco Use Types Packs/Day [...] EST Office Visit [facility] [address] [place] [phone] Richard Lewis MD [address] [place] [phone] documented as of this encounter Visit Diagnoses Not on filedocumented in this encounter Care Teams Meter Tester Primary Relationship Specialty Start Date End Date No, Pcp (Do Not Change Name) PCP - General 07/19/24 documented as of this encounter
--- OUTSIDE RECORDS SUMMARY | 2025-04-27 08:05 | XMS_ITS | Encounter Summary ---
Author Organization [facility] and [facility] Address [address] [place] [address] Care Team Providers Care Glazing Machine Operator Name Role Phone No, Pcp (Do Not Change Name) Primary Care Provid er Unavailable Reason for Visit * Reason Onset Date Comments Triage 09/29/2024 ? Medication den ial Encounter Details Date Type Department Care Team (Late st Contact Info) Description 09/29/2024 Telephone [facility] 6 [facility] [address] [place] [address] Richard Lewis MD [address] [place] [address] Triage (? Medication denial ) [...] Office Visit [facility] [address] [place] [phone] Richard Lewis MD [address] [place] [address] documented as of this encounter Visit Diagnoses Not on filedocumented in this encounter Additional Health Concerns Assessment Noted Time PHQ-9 Depression Total Score: 0 01/27/20 24 8:26 AM EDT documented as of this encounter Care Teams Glazing Machine Operator Relationship Specialty Start Date End Date No, Pcp (Do Not Change Name) PCP - General 07/19/24 documented as of this encounter
--- OUTSIDE RECORDS SUMMARY | 2025-04-27 08:05 | XMS_ITS | Encounter Summary ---
Author Organization [facility] and [facility] Address [address] [place] [phone] Care Team Providers Care Environmental Property Assessor Name Role Phone No, Pcp (Do Not Change Name) Primary Care Provid er Unavailable Encounter Details Date Type Department Care Team (Late st Contact Info) Description 01/20/2025 Scanned Document INTERFACE DEFAULT [address] [place] [phone] System, Provider Not In Social History Tobacco [...] EST Office Visit [facility] [address] [place] [address] Richard Lewis MD [address] [place] [phone] documented as of this encounter Visit Diagnoses Not on filedocumented in this encounter Additional Health Concerns Assessment Noted Time PHQ-9 Depression Total Score: 0 01/27/20 24 8:26 AM EDT documented as of this encounter Care Teams Environmental Property Assessor Relationship Specialty Start Date End Date No, Pcp (Do Not Change Name) PCP - General 07/19/24 documented as of this encounter
--- OUTSIDE RECORDS SUMMARY | 2025-04-27 08:05 | XMS_ITS | Encounter Summary ---
Author Organization [facility] and [facility] Address [address] [place] [phone] Care Team Providers Care Residential Real Estate Agent Name Role Phone No, Pcp (Do Not Change Name) Primary Care Provid er Unavailable Encounter Details Date Type Department Care Team (Late st Contact Info) Description 03/08/2024 Scanned Document INTERFACE DEFAULT [address] [place] [address] System, Provider Not In Social History [...] EST Office Visit [facility] [address] [place] [address] Richard Lewis MD [address] [place] [address] documented as of this encounter Procedures Procedure [...] documented as of this encounter Care Teams Residential Real Estate Agent Relationship Specialty Start Date End Date No, Pcp (Do Not Change Name) PCP - General 07/19/24 documented as of this encounter
--- OUTSIDE RECORDS SUMMARY | 2025-04-27 08:05 | XMS_ITS | Encounter Summary ---
Author Organization [facility] and [facility] Address [address] [place] [phone] Care Team Providers Care Income Tax Analyst Name Role Phone No, Pcp (Do Not Change Name) Primary Care Provid er Unavailable Reason for Visit * Reason Onset Date Comments Triage 10/10/2023 Encounter Details Date Type Department Care Team (Late st Contact Info) Description 10/10/2023 Telephone [facility] [address] [place] [address] Richard Lewis MD [address] [place] [phone] Triage Social History Tobacco Use Types Packs/Day [...] being worked up for [facility] at the [facility] and was scheduled to start on Ocrevus in 10/2021. She had hip replacement surgery in Feb 2022 at [facility] and four days s/p surgery, she experienced full body paresis from her neck to her feet. 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 She needed to go to rehab after this event as she required a wheelchair. She occasionally experiences blurry vision but follows regularly with her research development director. * Telephone Encounter - Katarina Handy - 10/10/2023 11:04 AM EDT Copied from [facility] #[id number]. Topic: General Message - [facility] >> Oct 10, 2023 11:00 AM Katarina Shukla wrote: [facility] MESSAGE Time of call: 11:00 [...] urgently? no Best telephone number for callback: [phone] Best time to return call: any Permission to leave message: yes Katarina Handy CARE Center Community Service Specialist documented in this encounter Plan of Treatment Upcoming Encounters Date Type Department Care Team (Late st Contact Info) Description 05/31/2025 3:30 PM EST Office Visit [facility] [address] [address] Richard Lewis MD [address] [place] [address] documented as of this encounter Visit Diagnoses Not on filedocumented in this encounter Additional Health Concerns Assessment Noted Time PHQ-9 Depression Total Score: 0 09/24/19 24 9:25 AM EDT documented as of this encounter Care Teams Income Tax Analyst Relationship Specialty Start Date End Date No, Pcp (Do Not Change Name) PCP - General 07/19/24 documented as of this encounter
--- OUTSIDE RECORDS SUMMARY | 2025-04-27 08:05 | XMS_ITS | Continuity of Care Document ---
Author Organization [facility] [address] [place] [address] Phone [phone] Care Team Providers Care Group Activities Aide Name Role Phone Gustavo Suarez M.D. Care Team Information Recei yadira [phone] Clarence Leiva MD Care Team Information R eceiver [phone] Problems Active Problems Provider Date Multinodular goiter [...] Apply 1 Patch Once A Week Unknown [id number] Tablets Take 1 Tablet By Mouth Twice Daily as Needed For Muscle Spasm Krystina Mendez, ELECTRICIAN SUBSTATION Vvbvtzmty5am Tablets Take half hs Unknow n Vitamin D (Ergocalciferol)1.25mg (07488 Ut) Capsules Take 1 Capsule By Mouth every other week Unknown Okiarkdzzt92or Capsules DR Take 1 Capsule By Mouth Every Day 30 Minutes Before Breakfast Gustavo Suarez M.D. Sijqeaehkc540gf Tablets 300mg am, 300mg 2pm, 1200mg 8pm Unknown Iooxnmv3ra Tablets Take 1 Tablet By Mouth Twice Daily Linda Astudillo MD Lamotrigine PE424qe Tablets ER 24HR Take 2 Tablets By Mouth Every Day Unknown Methylphenidate PMX39zw Tablets Take 1 Tablet By Mouth Three Times Daily prn Unknown Valacyclovir YJW302vl Tablets Unknown Tizanidine HCL2mg Tablets Unknown Dicyclomine UVR72an Capsules Take 1 Capsule By Mouth Four [...] 77 TSH With Reflex To FT4 12/12/2022 [facility] TSH With Reflex To FT4 0.33 uIU/mL Low (0.4-4. 2) Anti Thyroid Peroxidase AB 12/12/2022 [facility] Anti Thyroid Peroxidase AB <3.0 IU/mL (<5.6) 1 25Oh Vitamin D 12/12/2022 [facility] 25Oh Vitamin D 50.0 NG/ML (20-50) Free T4 12/12/2022 [facility] Free T4 0.90 ng/dL (0.70-1 .80) 1 Antibody measurement represents one parameter in a multicriteria diagnostic process. Correlate results with clinical presentation. This test was performed on the [employer] immunoassay system. Medical Devices Description No Information [...]
--- OUTSIDE RECORDS SUMMARY | 2025-04-27 08:05 | XMS_ITS | Clinical Summary ---
Author Organization [address] Address [address] [place] [phone] Care Team Providers Care Environmental Assistant Name Role Phone No, Pcp (Do [...] 05/2021 Penicillins Hives,Other (See Comments),Rash High 07/09/2017 Elrwzrp-Tii-Lqa Reductase Inhibitors Other (See Comments) Medium 07/19/2024 [...] Description 04/25/2025 Telephone [facility] [address] [place] [address] Richard Lewis MD Other 04/19/2025 Telephone [facility] [address] [place] [address] Richard Lewis MD Other 03/16/2025 Telephone [facility] [address] [place] [address] Richard Lewis MD Triage 03/08/2025 Telephone [facility] [address] [place] [address] Richard Lewis MD Other 03/02/2025 Telephone [facility] [address] [place] [address] Richard Lewis MD Triage 01/28/2025 Telephone [facility] [address] [place] [address] Richard Lewis MD Other from Last 3 [...] EST Office Visit [facility] [address] [place] [phone] Richard Lewis MD [address] [place] [facility] [place] [phone] Health Maintenance Due Date Last Done Comments [...] complete this topic Insurance QIANA BIRD [facility] MEDICARE [facility] MEDICARE [facility] MEDICARE Care Teams Environmental Assistant Relationship Specialty Start Date End Date No, Pcp (Do Not Change Name) PCP - General 07/19/24
--- OUTSIDE RECORDS SUMMARY | 2025-04-27 08:05 | XMS_ITS | Clinical Summary ---
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 and will continue to work on dietary [...] METHOD 04/05/2024 3:28 PM [facility] Alkaline Phosphatase 65 42 - 121 unit/L LAB CHEMISTRY METHOD 04/05/2024 3:28 PM EST [facility] Total Protein 6.6 6.0 - 8.0 g/dL LAB CHEMISTRY METHOD 04/05/2024 3:28 PM EST [facility] Albumin 3.7 3.2 - 5.0 g/dL LAB CHEMISTRY METHOD 04/05/2024 3:28 PM EST [facility] Total Bilirubin 0.6 0.0 - 1.4 mg/dL LAB CHEMISTRY METHOD 04/05/2024 3:28 PM EST [facility] Blood Venous blood specimen / Unknown Venipuncture / Unknown 04/05/2024 2:46 PM EST 04/05/2024 2:59 PM EST us Enrique Moyer MD LAB BLOOD ORDERABLES Final Result [facility] [address] [place] [address], from Last 3 Months or Most Recently Relevant to Health Maintenance Insurance [employer] MEDICARE ADVANTAGE [facility] Advance Directives Documents on File Type Date Recorded 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
--- OUTSIDE RECORDS SUMMARY | 2025-04-27 08:05 | XMS_ITS | Clinical Summary ---
Author Organization [facility] Address [address] [address] [place] [address] Phone Care Team Providers Care Audit Manager Name Role Phone Daniela Gustavo Denise BOYD Primary Care Provider [phone] Allergies Active Allergy Reactions Criticality Noted Date [...] formulations. However, I do believe that her airframe technical officer should weigh in on this as well. Therefore, I will send a copy of today's note. Her current dose of estradiol is 0 0.075 mg per 24 hours changed weekly. I cannot find in the chart where her previous dose was but according to the notes it was decreased to this current dose. If her airframe technical officer is in agreement, she will call when [...] Visit [facility] [address] [address] Enrique Guido MD [address] [address] Health Maintenance Due Date Last [...] this topic Insurance Aetna MCR Adv PPO ([id number]) Aetna MCR Adv PPO ([id number]) C[employer] Open Access ([phone]) Care Teams Audit Manager Relationship Specialty Start Date End Date Gustavo Suarez DO [address] [place] [address] PCP - General 05/15/20
--- OUTSIDE RECORDS SUMMARY | 2025-04-27 08:06 | XMS_ITS | Encounter Summary ---
Author Organization [facility] Address [address] [place] [address] Care Team Providers Care Billing And Accounting Staff Assistant Name Role Phone No, Pcp (Do Not Change Name) Primary Care Provid er Unavailable Encounter Details Date Type Department Care Team (Late st Contact Info) Description 06/09/2024 Scanned Document INTERFACE DEFAULT [address] [place] [address] System, Provider Not In Social History [...] Office Visit [facility] [address] [place] [address] Richard Lewis MD [address] [place] [address] documented as of this encounter Visit Diagnoses Not on filedocumented in this encounter Additional Health Concerns Assessment Noted Time PHQ-9 Depression Total Score: 0 01/27/20 8:26 AM EDT documented as of this encounter Care Teams Billing And Accounting Staff Assistant Relationship Specialty Start Date End Date No, Pcp (Do Not Change Name) PCP - General 07/19/24 documented as of this encounter
--- OUTSIDE RECORDS SUMMARY | 2025-04-27 08:06 | XMS_ITS | Encounter Summary ---
Author Organization [facility] Address [address] [place] [address] Care Team Providers Care Inside Plant Supervisor Name Role Phone No, Pcp (Do Not Change Name) Primary Care Provid er Unavailable Reason for Referral * Physical Medicine (Routine) - New Request Specialty Diagnoses / Procedures Referred By Maria Isabel shahid Referred To Contact Physical Therapy Diagnoses Weakness Muscle spasm Richard Lewis MD [address] [place] [address] Phone: tel: fax: Referral ID Status Reason Start Date Expiration Date Visits Requested Visits Authorized [id number] New Request Specialty Services Required 07/26/2024 07/26/2025 1 1 Reason for Visit * Reason Onset Date Comments Triage 07/26/2024 Increased muscle spasms Encounter Details Date Type Department Care Team (Late st Contact Info) Description 07/26/2024 Telephone [facility] [address] [address] Richard Lewis MD [address] [place] [address] Triage (Increased muscle spasms ) [...] EST Office Visit [facility] [address] [place] [address] iRchard Lewis MD [address] [place] [address] Scheduled Referrals Name Type Priority [...] documented as of this encounter Care Teams Inside Plant Supervisor Relationship Specialty Start Date End Date No, Pcp (Do Not Change Name) PCP - General 07/19/24 documented as of this encounter
--- OUTSIDE RECORDS SUMMARY | 2025-04-27 08:06 | XMS_ITS | Encounter Summary ---
Author Organization [facility] Address [address] [place] [phone] Care Team Providers Care Services Host Name Role Phone No, Pcp (Do Not Change Name) Primary Care Provid er Unavailable Encounter Details Date Type Department Care Team (Late st Contact Info) Description 03/26/2024 Scanned Document INTERFACE DEFAULT [address] [place] [address] System, Provider Not In Social History [...] Office Visit [facility] [address] [place] [address] Richard Lewis MD [address] [place] [address] documented as of this encounter Visit Diagnoses Not on filedocumented in this encounter Additional Health Concerns Assessment Noted Time PHQ-9 Depression Total Score: 0 01/27/20 8:26 AM EDT documented as of this encounter Care Teams Services Host Relationship Specialty Start Date End Date No, Pcp (Do Not Change Name) PCP - General 07/19/24 documented as of this encounter
--- OUTSIDE RECORDS SUMMARY | 2025-04-27 08:06 | XMS_ITS | Encounter Summary ---
Author Organization [facility] Address [address] [place] [phone] Care Team Providers Care Call Center Coordinator Name Role Phone No, Pcp (Do Not Change Name) Primary Care Provid er Unavailable Encounter Details Date Type Department Care Team (Late st Contact Info) Description 10/07/2024 Scanned Document INTERFACE DEFAULT [address] [place] [phone] System, Provider Not In Social History Tobacco [...] Office Visit [facility] [address] [place] [address] Richrad Lewis MD [address] [place] [phone] documented as of this encounter Visit Diagnoses Not on filedocumented in this encounter Additional Health Concerns Assessment Noted Time PHQ-9 Depression Total Score: 0 01/27/20 24 8:26 AM EDT documented as of this encounter Care Teams Call Center Coordinator Relationship Specialty Start Date End Date No, Pcp (Do Not Change Name) PCP - General 07/19/24 documented as of this encounter
[2025-04-27 10:03] LABS: MANUAL DIFF FLAG NO
[2025-04-27 10:29] LABS: Hematocrit 35.1 % (37.0-47.0); Hemoglobin 11.9 g/dl (12.0-16.0); Imm Gran Abs Auto 0.00 X10*3/uL (0.00-0.03); Imm Gran Pct Auto 0.0 % (0.0-0.4); Lymphocytes Absolute Auto 1.2 X10*3/uL (1.2-4.9); Mean Corpuscular HGB Conc 33.9 g/dl (31.0-35.0); Mean Corpuscular Hemoglobin 31.3 pg (27.0-33.0); Mean Corpuscular Volume 92.4 fL (80.0-98.0); NRBC Abs Auto 0.000 X10*3/uL (0.0-0.012); NRBC Pct Auto 0.0 /100WBC (0.0-0.2); Platelet Count 288 X10*3/uL (160-400); Red Blood Count 3.80 X10*6/uL (4.20-5.50); White Blood Count 3.0 X10*3/uL (4.8-10.8)
[2025-04-27 10:51] LABS: Alanine Aminotransferase 11 U/L (0-31); Albumin Level 3.9 g/dL (3.5-5.0); Alkaline Phosphatase 69 U/L (39-117); Anion Gap 9 (12-20); Aspartate Amino Transferase 26 U/L (5-31); Blood Urea Nitrogen 16 mg/dL (9-16); Calcium 9.5 mg/dL (8.4-10.2); Carbon Dioxide 27 mmol/L (22-29); Chloride 109 mmol/L (96-108); Cholesterol 208 mg/dL (<200); Estimated Glomerular Filt Rate > 60; HDL Cholesterol 63 mg/dL (>40); Iron 81 mcg/dL (30-160); Magnesium 2.0 mg/dL (1.6-2.6); Percent Iron Saturation 34 % (15-50); Potassium 4.1 mmol/L (3.3-5.1); Sodium 141 mmol/L (135-145); Total Iron Binding Capacity 236 mcg/dL (228-428); Total Protein 7.7 g/dL (6.5-8.0); Triglycerides 78 mg/dL (<150); Unsaturated Iron Binding 155 ug/dL
[2025-04-27 10:53] LABS: Ferritin 123 ng/mL (10-250)
[2025-04-27 10:54] LABS: Appearance Urine Clear; Glucose Urine UA Negative (Negative); PH 6.0 (5.0-9.0); Specific Gravity - Urine 1.025 (1.005-1.025); UMIC TRIGGER UACC YES
[2025-04-27 11:10] LABS: Folate 6.2 ng/mL (> or = 4.0); Vitamin B12 310 pg/mL (200-900)
[2025-04-27 11:51] LABS: Microalbum/Creatinine Ratio Ur 5.3 ug/mg cr (<30)
== END 2025-04-27 08:02 | disposition home or self-care (01) ==
LOC: HO.HMGCLDS 08:01
PROVIDERS: PCP Physician Assistant Medical; Visit Provider Physician Assistant Medical
DX: Z00.00 Encounter for general adult medical examination without abnormal findings (principal); Z01.84 Encounter for antibody response examination; E04.2 Nontoxic multinodular goiter; D64.9 Anemia, unspecified; Z13.6 Encounter for screening for cardiovascular disorders; Z13.21 Encounter for screening for nutritional disorder
CPT/HCPCS: 36415; 80053; 80061; 81001; 81003; 82043; 82306; 82570; 82607; 82728; 82746; 83540; 83735; 84443; 85025; 85652; 86140; 86376